=== PATIENT | female | born 1940 | race Caucasian/White ===

== ENCOUNTER → 2023-05-24 | Outpatient (REF) | payer MEDICARE, SELFPAY ==
[2023-05-24 10:22] LABS: Hematocrit 35.9 % (37-47); Hemoglobin 11.7 g/dL (12.0-15.0); Mean Corp Hgb Conc 32.6 g/dL (32-36); Mean Corpuscular Hgb 32.4 pg (27.0-32.0); Mean Corpuscular Volume 99.4 fL (81-99); Mean Platelet Vol. 9.3 fl (6.2-12.0); Platelet Count 311 K/mm3 (150-450); RBC Distribution Width CV 13.2 % (11.6-14.6); RBC Distribution Width SD 48.2 fl (35.1-43.9); Red Blood Count 3.61 M/mm3 (4.2-5.4); White Blood Count 6.9 K/mm3 (4.4-11.0)
[2023-05-24 11:21] LABS: ALB/GLOB Ratio 0.7 RATIO (0.9-2.4); AST(SGOT) 19 U/L (15-37); Alanine Aminotransfer ALT/SGPT 15 U/L (13-56); Albumin, Serum 2.9 g/dL (3.2-5.0); Alkaline Phosphatase 84 U/L (45-117); Anion Gap 5 (5-15); BUN 18 mg/dL (7-18); BUN/Creat Ratio 23.9 RATIO (10-20); Calcium,Total 9.4 mg/dL (8.5-10.1); Chloride 109 mmol/L (98-107); Cholesterol 172 mg/dL (200); Creatinine, Serum 0.75 mg/dL (0.55-1.02); EST Glomerular Filtration Rate 79 mL/min (>60); Est Glom Filt Rate - Afr Amer 95 mL/min (>60); Globulin 3.9 g/dL (2.2-4.2); Glucose 91 mg/dL (74-106); High Density Lipoprotein 53 mg/dL; Potassium 3.2 mmol/L (3.5-5.1); Protein, Total 6.8 g/dL (6.4-8.2); Sodium Level 140 mmol/L (136-145); Thyroid Stim Hormone (TSH) 0.39 uIU/mL (0.358-3.74); Triglycerides 57 mg/dL; Very Low Density Lipoprotein 11 mg/dL (5-40)
== END ==
LOC: OLS.ACW100 05:56
PROVIDERS: Visit Provider Family Medicine
DX: J44.9 Chronic obstructive pulmonary disease, unspecified (principal); F03.90 Unspecified dementia, unspecified severity, without behavioral disturbance, psychotic disturbance, mood disturbance, and anxiety; I48.20 Chronic atrial fibrillation, unspecified; Z79.899 Other long term (current) drug therapy
CPT/HCPCS: 36415; 80053; 80061; 84443; 85027

== ENCOUNTER → 2023-06-01 | Outpatient (REF) | payer MEDICARE, SELFPAY ==
[2023-06-01 09:12] LABS: Anion Gap 4 (5-15); BUN 26 mg/dL (7-18); BUN/Creat Ratio 33.3 RATIO (10-20); Calcium,Total 9.7 mg/dL (8.5-10.1); Chloride 110 mmol/L (98-107); Creatinine, Serum 0.78 mg/dL (0.55-1.02); EST Glomerular Filtration Rate 75 mL/min (>60); Est Glom Filt Rate - Afr Amer 91 mL/min (>60); Glucose 101 mg/dL (74-106); Potassium 4.2 mmol/L (3.5-5.1); Sodium Level 141 mmol/L (136-145)
== END ==
LOC: OLS.ACW100 05:00
PROVIDERS: Visit Provider Family Medicine
DX: J44.9 Chronic obstructive pulmonary disease, unspecified (principal); F03.90 Unspecified dementia, unspecified severity, without behavioral disturbance, psychotic disturbance, mood disturbance, and anxiety; I48.20 Chronic atrial fibrillation, unspecified
CPT/HCPCS: 36415; 80048

== ENCOUNTER → 2023-06-26 | Outpatient (REF) | payer MEDICARE, SELFPAY ==
[2023-06-26 10:40] LABS: Anion Gap 3 (5-15); BUN 23 mg/dL (7-18); BUN/Creat Ratio 29.1 RATIO (10-20); Calcium,Total 9.7 mg/dL (8.5-10.1); Chloride 106 mmol/L (98-107); Creatinine, Serum 0.79 mg/dL (0.55-1.02); EST Glomerular Filtration Rate 74 mL/min (>60); Est Glom Filt Rate - Afr Amer 90 mL/min (>60); Glucose 97 mg/dL (74-106); Potassium 4.2 mmol/L (3.5-5.1); Sodium Level 139 mmol/L (136-145)
== END ==
LOC: OLS.ACW100 04:00
PROVIDERS: Referring Provider Family Medicine; Visit Provider Family Medicine
DX: I48.20 Chronic atrial fibrillation, unspecified (principal); J44.9 Chronic obstructive pulmonary disease, unspecified; F03.90 Unspecified dementia, unspecified severity, without behavioral disturbance, psychotic disturbance, mood disturbance, and anxiety
CPT/HCPCS: 36415; 80048

== ENCOUNTER → 2023-07-03 | Outpatient (REF) | payer MEDICARE, SELFPAY ==
[2023-07-03 09:27] LABS: T4 Total, Thyroxin 8.8 ug/dL (4.8-13.9); Thyroid Stim Hormone (TSH) 1.44 uIU/mL (0.358-3.74)
[2023-07-03 10:01] LABS: T3 Total - Triiodothyronine 0.86 ng/mL (0.6-1.81)
== END ==
LOC: OLS.ACW100 05:00
PROVIDERS: Visit Provider Family Medicine
DX: I48.20 Chronic atrial fibrillation, unspecified (principal)
CPT/HCPCS: 36415; 84436; 84443; 84480

== ENCOUNTER → 2023-07-17 | Outpatient (REF) | payer MEDICARE, SELFPAY ==
[2023-07-17 09:05] LABS: Hematocrit 39.5 % (37-47); Hemoglobin 12.7 g/dL (12.0-15.0); Mean Corp Hgb Conc 32.2 g/dL (32-36); Mean Corpuscular Hgb 32.2 pg (27.0-32.0); Mean Platelet Vol. 9.2 fl (6.2-12.0); Platelet Count 337 K/mm3 (150-450); RBC Distribution Width CV 12.6 % (11.6-14.6); Red Blood Count 3.95 M/mm3 (4.2-5.4); White Blood Count 7.1 K/mm3 (4.4-11.0)
[2023-07-17 09:25] LABS: Anion Gap 5 (5-15); BUN 21 mg/dL (7-18); BUN/Creat Ratio 26.1 RATIO (10-20); Calcium,Total 9.7 mg/dL (8.5-10.1); Chloride 107 mmol/L (98-107); EST Glomerular Filtration Rate 73 mL/min (>60); Est Glom Filt Rate - Afr Amer 88 mL/min (>60); Glucose 95 mg/dL (74-106); Potassium 3.7 mmol/L (3.5-5.1); Sodium Level 139 mmol/L (136-145)
== END ==
LOC: OLS.ACW100 05:00
PROVIDERS: Visit Provider Family Medicine
DX: R60.9 Edema, unspecified (principal); J44.9 Chronic obstructive pulmonary disease, unspecified; I48.20 Chronic atrial fibrillation, unspecified; F03.90 Unspecified dementia, unspecified severity, without behavioral disturbance, psychotic disturbance, mood disturbance, and anxiety
CPT/HCPCS: 36415; 80048; 85027

== ENCOUNTER → 2023-07-21 | Outpatient (REF) | payer MEDICARE, SELFPAY ==
[2023-07-21 09:44] LABS: Vitamin B12 1516 pg/mL (211-911)
== END ==
LOC: OLS.ACW100 05:00
PROVIDERS: Visit Provider Family Medicine
DX: J44.9 Chronic obstructive pulmonary disease, unspecified (principal); F03.90 Unspecified dementia, unspecified severity, without behavioral disturbance, psychotic disturbance, mood disturbance, and anxiety; I48.20 Chronic atrial fibrillation, unspecified
CPT/HCPCS: 36415; 82607

== ENCOUNTER → 2023-08-16 | Outpatient (REF) | payer MEDICARE, SELFPAY ==
[2023-08-16 09:13] LABS: Anion Gap 5 (5-15); BUN 22 mg/dL (7-18); BUN/Creat Ratio 27.2 RATIO (10-20); Calcium,Total 9.9 mg/dL (8.5-10.1); Chloride 108 mmol/L (98-107); Creatinine, Serum 0.81 mg/dL (0.55-1.02); EST Glomerular Filtration Rate 72 mL/min (>60); Est Glom Filt Rate - Afr Amer 87 mL/min (>60); Glucose 100 mg/dL (74-106); Sodium Level 138 mmol/L (136-145)
== END ==
LOC: OLS.ACW100 05:00
PROVIDERS: Visit Provider Family Medicine
DX: J44.9 Chronic obstructive pulmonary disease, unspecified (principal); F03.90 Unspecified dementia, unspecified severity, without behavioral disturbance, psychotic disturbance, mood disturbance, and anxiety; I48.20 Chronic atrial fibrillation, unspecified
CPT/HCPCS: 36415; 80048

== ENCOUNTER → 2023-09-21 | Outpatient (REF) | payer MEDICARE, SELFPAY ==
[2023-09-21 10:45] LABS: T3 Total - Triiodothyronine 1.15 ng/mL (0.6-1.81)
[2023-09-21 11:13] LABS: T4 Total, Thyroxin 12.1 ug/dL (4.8-13.9); Thyroid Stim Hormone (TSH) 0.14 uIU/mL (0.358-3.74)
== END ==
LOC: OLS.ACW100 07:10
PROVIDERS: Visit Provider Family Medicine
DX: I48.20 Chronic atrial fibrillation, unspecified (principal)
CPT/HCPCS: 36415; 84436; 84443; 84480

== ENCOUNTER → 2023-11-02 | Outpatient (REF) | payer MEDICARE, SELFPAY ==
[2023-11-02 08:50] LABS: Hematocrit 38.8 % (37-47); Hemoglobin 13.2 g/dL (12.0-15.0); Mean Corpuscular Hgb 32.1 pg (27.0-32.0); Mean Corpuscular Volume 94.4 fL (81-99); Mean Platelet Vol. 9.5 fl (6.2-12.0); Platelet Count 372 K/mm3 (150-450); RBC Distribution Width CV 11.9 % (11.6-14.6); RBC Distribution Width SD 41.3 fl (35.1-43.9); Red Blood Count 4.11 M/mm3 (4.2-5.4); White Blood Count 10.6 K/mm3 (4.4-11.0)
[2023-11-02 08:52] LABS: Erythrocyte Sedimentation Rate 44 mm/hr (0-30)
[2023-11-02 09:16] LABS: Procalcitonin < 0.04 ng/mL (0.00-0.09)
[2023-11-02 10:22] LABS: Anion Gap 8 (5-15); BUN 20 mg/dL (7-18); BUN/Creat Ratio 28.4 RATIO (10-20); Chloride 107 mmol/L (98-107); EST Glomerular Filtration Rate 85 mL/min (>60); Est Glom Filt Rate - Afr Amer 102 mL/min (>60); Glucose 97 mg/dL (74-106); Potassium 4.1 mmol/L (3.5-5.1); Sodium Level 138 mmol/L (136-145)
== END ==
LOC: OLS.ACW100 05:00
PROVIDERS: Visit Provider Family Medicine
DX: J44.9 Chronic obstructive pulmonary disease, unspecified (principal); F03.90 Unspecified dementia, unspecified severity, without behavioral disturbance, psychotic disturbance, mood disturbance, and anxiety; R41.841 Cognitive communication deficit
CPT/HCPCS: 36415; 80048; 84145; 84550; 85027; 85652

== ENCOUNTER → 2023-11-06 | Outpatient (REF) | payer MEDICARE, SELFPAY ==
[2023-11-06 08:22] LABS: T4 Total, Thyroxin 9.1 ug/dL (4.8-13.9); Thyroid Stim Hormone (TSH) 0.32 uIU/mL (0.358-3.74)
[2023-11-06 08:35] LABS: T3 Total - Triiodothyronine 0.59 ng/mL (0.6-1.81)
== END ==
LOC: OLS.ACW100 04:00
PROVIDERS: Referring Provider Family Medicine; Visit Provider Family Medicine
DX: I48.20 Chronic atrial fibrillation, unspecified (principal)
CPT/HCPCS: 36415; 84436; 84443; 84480

== ENCOUNTER → 2023-11-17 | Outpatient (REF) | payer MEDICARE, SELFPAY ==
[2023-11-17 09:17] LABS: Anion Gap 5 (5-15); BUN 20 mg/dL (7-18); BUN/Creat Ratio 20.4 RATIO (10-20); Calcium,Total 10.1 mg/dL (8.5-10.1); Chloride 108 mmol/L (98-107); Creatinine, Serum 0.98 mg/dL (0.55-1.02); EST Glomerular Filtration Rate 58 mL/min (>60); Est Glom Filt Rate - Afr Amer 70 mL/min (>60); Glucose 100 mg/dL (74-106); Potassium 4.2 mmol/L (3.5-5.1); Sodium Level 137 mmol/L (136-145)
== END ==
LOC: OLS.ACW100 05:00
PROVIDERS: Visit Provider Family Medicine
DX: J44.9 Chronic obstructive pulmonary disease, unspecified (principal); F03.90 Unspecified dementia, unspecified severity, without behavioral disturbance, psychotic disturbance, mood disturbance, and anxiety
CPT/HCPCS: 36415; 80048

== ENCOUNTER → 2023-12-18 05:00 | Outpatient (REF) | payer MEDICARE, SELFPAY ==
[2023-12-18 09:51] LABS: Thyroid Stim Hormone (TSH) 0.86 uIU/mL (0.358-3.74)
== END ==
LOC: OLS.ACW100 05:00
PROVIDERS: Visit Provider Family Medicine
DX: J44.9 Chronic obstructive pulmonary disease, unspecified (principal); F03.90 Unspecified dementia, unspecified severity, without behavioral disturbance, psychotic disturbance, mood disturbance, and anxiety; R41.841 Cognitive communication deficit
CPT/HCPCS: 36415; 84443

== ENCOUNTER → 2024-01-05 | Outpatient (REF) | payer MEDICARE, SELFPAY ==
[2024-01-05 08:58] LABS: Potassium 3.9 mmol/L (3.5-5.1)
== END ==
LOC: OLS.ACW100 05:00
PROVIDERS: Visit Provider Family Medicine
DX: J44.9 Chronic obstructive pulmonary disease, unspecified (principal); F03.90 Unspecified dementia, unspecified severity, without behavioral disturbance, psychotic disturbance, mood disturbance, and anxiety; R41.841 Cognitive communication deficit
CPT/HCPCS: 36415; 84132

== ENCOUNTER → 2024-02-06 05:00 | Outpatient (REF) | payer MEDICARE, SELFPAY ==
[2024-02-06 09:47] LABS: T3 Total - Triiodothyronine 0.84 ng/mL (0.6-1.81)
[2024-02-06 10:29] LABS: T4 Total, Thyroxin 10.9 ug/dL (4.8-13.9); Thyroid Stim Hormone (TSH) 0.25 uIU/mL (0.358-3.74)
== END ==
LOC: OLS.ACW100 05:00
PROVIDERS: Visit Provider Family Medicine
DX: J44.9 Chronic obstructive pulmonary disease, unspecified (principal); F03.90 Unspecified dementia, unspecified severity, without behavioral disturbance, psychotic disturbance, mood disturbance, and anxiety; I48.20 Chronic atrial fibrillation, unspecified
CPT/HCPCS: 36415; 84436; 84443; 84480

== ENCOUNTER → 2024-07-08 | Outpatient (REF) | payer MEDICARE, MEDICAID, SELFPAY ==
[2024-07-08 08:53] LABS: T4 Total, Thyroxin 10.2 ug/dL (4.8-13.9); Thyroid Stim Hormone (TSH) 0.426 uIU/mL (0.358-3.740)
[2024-07-08 09:01] LABS: T3 Total - Triiodothyronine 1.13 ng/mL (0.6-1.81)
== END ==
LOC: OLS.ACW100 05:00
PROVIDERS: Visit Provider Family Medicine
DX: Z79.899 Other long term (current) drug therapy (principal)
CPT/HCPCS: 36415; 84436; 84443; 84480

== ENCOUNTER → 2024-07-25 | Outpatient (REF) | payer MEDICARE, MEDICAID, SELFPAY ==
[2024-07-25 08:52] LABS: Hematocrit 37.6 % (37-47); Hemoglobin 12.5 g/dL (12.0-15.0); Mean Corp Hgb Conc 33.2 g/dL (32-36); Mean Corpuscular Hgb 32.6 pg (27.0-32.0); Mean Corpuscular Volume 98.2 fL (81-99); Mean Platelet Vol. 9.5 fl (6.2-12.0); Platelet Count 231 K/mm3 (150-450); RBC Distribution Width CV 11.8 % (11.6-14.6); RBC Distribution Width SD 42.4 fl (35.1-43.9); Red Blood Count 3.83 M/mm3 (4.2-5.4); White Blood Count 6.5 K/mm3 (4.4-11.0)
[2024-07-25 09:31] LABS: ALB/GLOB Ratio 0.8 RATIO (0.9-2.4); AST(SGOT) 55 U/L (15-37); Alanine Aminotransfer ALT/SGPT 80 U/L (13-56); Albumin, Serum 2.9 g/dL (3.2-5.0); Alkaline Phosphatase 80 U/L (45-117); Anion Gap 3 (5-15); BUN 21 mg/dL (7-18); BUN/Creat Ratio 23.5 RATIO (10-20); Chloride 111 mmol/L (98-107); Cholesterol 157 mg/dL (200); Creatinine, Serum 0.89 mg/dL (0.55-1.02); EST Glomerular Filtration Rate 64 mL/min (>60); Est Glom Filt Rate - Afr Amer 78 mL/min (>60); Globulin 3.5 g/dL (2.2-4.2); Glucose 96 mg/dL (74-106); High Density Lipoprotein 53 mg/dL; Potassium 4.2 mmol/L (3.5-5.1); Protein, Total 6.4 g/dL (6.4-8.2); Sodium Level 139 mmol/L (136-145); Thyroid Stim Hormone (TSH) 0.648 uIU/mL (0.358-3.740); Triglycerides 56 mg/dL; Very Low Density Lipoprotein 11 mg/dL (5-40)
== END ==
LOC: OLS.ACW100 05:00
PROVIDERS: Visit Provider Family Medicine
DX: F03.90 Unspecified dementia, unspecified severity, without behavioral disturbance, psychotic disturbance, mood disturbance, and anxiety (principal); S32.011D Stable burst fracture of first lumbar vertebra, subsequent encounter for fracture with routine healing; Z79.899 Other long term (current) drug therapy
CPT/HCPCS: 36415; 80053; 80061; 84443; 85027

== ENCOUNTER → 2024-10-08 04:00 | Outpatient (REF) | payer MEDICARE, MEDICAID, SELFPAY ==
[2024-10-08 08:58] LABS: T4 Total, Thyroxin 11.8 ug/dL (4.8-13.9)
[2024-10-08 09:00] LABS: T3 Total - Triiodothyronine 0.75 ng/mL (0.6-1.81)
== END ==
LOC: OLS.ACW100 04:00
PROVIDERS: Referring Provider Family Medicine; Visit Provider Family Medicine
DX: E03.9 Hypothyroidism, unspecified (principal)
CPT/HCPCS: 36415; 84436; 84443; 84480

== ENCOUNTER → 2024-11-26 | Outpatient (REF) | payer MEDICARE, MEDICAID, SELFPAY ==
[2024-11-26 09:22] LABS: AST(SGOT) 35 U/L (<=31); Alanine Aminotransfer ALT/SGPT 30 U/L (<=34); Albumin, Serum 3.2 g/dL (3.4-4.8); Alkaline Phosphatase 72 U/L (35-104); Anion Gap 11 (5-15); BUN 17 mg/dL (4-19); BUN/Creat Ratio 17.8 RATIO (10-20); Bilirubin, Direct 0.28 mg/dL (0.00-0.30); Calcium,Total 9.2 mg/dL (7.6-11.0); Carbon Dioxide 22.3 mmol/L (21.0-32.0); Chloride 106 mmol/L (98-108); Creatinine, Serum 0.96 mg/dL (0.70-1.20); EST Glomerular Filtration Rate 59 (>60); Globulin 2.8 g/dL (2.2-4.2); Glucose 97 mg/dL (70-99); Magnesium 2.2 mg/dL (1.5-2.2); Potassium 3.5 mmol/L (3.3-5.1); Sodium Level 139 mmol/L (133-145); Total Bilirubin 0.62 mg/dL (0.00-1.30)
== END ==
LOC: OLS.ACW100 04:00
PROVIDERS: Referring Provider Family Medicine; Visit Provider Family Medicine
DX: I50.23 Acute on chronic systolic (congestive) heart failure (principal); I48.20 Chronic atrial fibrillation, unspecified; R45.1 Restlessness and agitation; R53.1 Weakness
CPT/HCPCS: 36415; 80048; 80076; 83735; 84443

== ENCOUNTER → 2024-12-04 | Outpatient (REF) | payer MEDICARE, MEDICAID, SELFPAY ==
[2024-12-04 08:01] LABS: Hemoglobin 12.5 g/dL (12.0-15.0); Mean Corp Hgb Conc 32.9 g/dL (32-36); Mean Corpuscular Hgb 30.6 pg (27.0-32.0); Mean Corpuscular Volume 92.9 fL (81-99); Mean Platelet Vol. 9.2 fl (6.2-12.0); Platelet Count 266 K/mm3 (150-450); RBC Distribution Width SD 47.5 fl (35.1-43.9); Red Blood Count 4.09 M/mm3 (4.2-5.4); White Blood Count 6.3 K/mm3 (4.4-11.0)
[2024-12-04 08:22] LABS: ALB/GLOB Ratio 1.2 RATIO (0.9-2.4); AST(SGOT) 29 U/L (<=31); Alanine Aminotransfer ALT/SGPT 20 U/L (<=34); Albumin, Serum 3.6 g/dL (3.4-4.8); Alkaline Phosphatase 74 U/L (35-104); Anion Gap 10 (5-15); BUN 19 mg/dL (4-19); BUN/Creat Ratio 17.7 RATIO (10-20); Calcium,Total 9.3 mg/dL (7.6-11.0); Carbon Dioxide 23.9 mmol/L (21.0-32.0); Chloride 104 mmol/L (98-108); Creatinine, Serum 1.05 mg/dL (0.70-1.20); EST Glomerular Filtration Rate 53 (>60); Glucose 112 mg/dL (70-99); Potassium 3.4 mmol/L (3.3-5.1); Protein, Total 6.6 g/dL (5.9-8.4); Sodium Level 138 mmol/L (133-145); Total Bilirubin 0.71 mg/dL (0.00-1.30)
== END ==
LOC: OLS.ACW100 05:00
PROVIDERS: Visit Provider Family Medicine
DX: I50.23 Acute on chronic systolic (congestive) heart failure (principal); I48.20 Chronic atrial fibrillation, unspecified; R45.1 Restlessness and agitation; R53.1 Weakness
CPT/HCPCS: 36415; 80053; 85027

== ENCOUNTER → 2024-12-16 | Outpatient (REF) | payer MEDICARE, MEDICAID, SELFPAY ==
[2024-12-16 08:42] LABS: Mucous, Urine 0 SEEN /hpf (<or=2+)
[2024-12-16 08:48] LABS: Color, Urine Yellow (Yellow); Glucose, Dipstick Normal (Normal); Ketone-Dipstick Negative (Negative); Leukocyte Esterase-Dipstick 500 /ul (Negative); Nitrite-Dipstick Negative (Negative); Occult Blood-Urine 50 /ul (Negative); Protein-Dipstick 30 mg/dl (Negative); Urine Bilirubin Dipstick Negative (Negative); Urine Clarity Cloudy (Clear); Urine Urobilinogen Normal (Normal)
[2024-12-16 08:59] LABS: Bacteria 4+ /hpf (None Seen); Red Blood Cells-Urine 0-5 SEEN /hpf (0-5); Squamous Epithelial Cells - UA 0-5 SEEN /hpf (5-10); White Blood Cells >100 SEEN /hpf (0-5)
[2024-12-16 09:00] LABS: Hematocrit 40.1 % (37-47); Hemoglobin 12.8 g/dL (12.0-15.0); Mean Corp Hgb Conc 31.9 g/dL (32-36); Mean Corpuscular Hgb 29.9 pg (27.0-32.0); Mean Corpuscular Volume 93.7 fL (81-99); Mean Platelet Vol. 9.5 fl (6.2-12.0); Platelet Count 258 K/mm3 (150-450); RBC Distribution Width CV 14.6 % (11.6-14.6); RBC Distribution Width SD 49.2 fl (35.1-43.9); Red Blood Count 4.28 M/mm3 (4.2-5.4); White Blood Count 7.1 K/mm3 (4.4-11.0)
[2024-12-16 09:48] LABS: ALB/GLOB Ratio 1.2 RATIO (0.9-2.4); AST(SGOT) 29 U/L (<=31); Alanine Aminotransfer ALT/SGPT 15 U/L (<=34); Albumin, Serum 3.6 g/dL (3.4-4.8); Alkaline Phosphatase 72 U/L (35-104); Anion Gap 11 (5-15); BUN 16 mg/dL (4-19); BUN/Creat Ratio 17.5 RATIO (10-20); Calcium,Total 9.3 mg/dL (7.6-11.0); Carbon Dioxide 24.7 mmol/L (21.0-32.0); Chloride 102 mmol/L (98-108); EST Glomerular Filtration Rate 64 (>60); Globulin 3.1 g/dL (2.2-4.2); Glucose 110 mg/dL (70-99); Magnesium 2.2 mg/dL (1.5-2.2); Potassium 3.4 mmol/L (3.3-5.1); Pro- Brain NATRIURETIC PEPTIDE 13099 pg/mL (<=1800); Protein, Total 6.6 g/dL (5.9-8.4); Sodium Level 138 mmol/L (133-145); Total Bilirubin 0.96 mg/dL (0.00-1.30)
== END ==
LOC: OLS.ACW100 05:00
PROVIDERS: Visit Provider Family Medicine
DX: R39.9 Unspecified symptoms and signs involving the genitourinary system (principal); I50.23 Acute on chronic systolic (congestive) heart failure; I48.20 Chronic atrial fibrillation, unspecified; R45.1 Restlessness and agitation; R53.1 Weakness
CPT/HCPCS: 36415; 80053; 81001; 83735; 83880; 85027; 87086; 87088; 87186

== ENCOUNTER → 2024-12-23 | Outpatient (REF) | payer MEDICARE, MEDICAID, SELFPAY ==
[2024-12-23 10:07] LABS: Anion Gap 12 (5-15); BUN 21 mg/dL (4-19); BUN/Creat Ratio 19.6 RATIO (10-20); Calcium,Total 9.8 mg/dL (7.6-11.0); Carbon Dioxide 21.1 mmol/L (21.0-32.0); Chloride 102 mmol/L (98-108); Creatinine, Serum 1.06 mg/dL (0.70-1.20); EST Glomerular Filtration Rate 52 (>60); Glucose 111 mg/dL (70-99); Potassium 4.1 mmol/L (3.3-5.1); Pro- Brain NATRIURETIC PEPTIDE 11669 pg/mL (<=1800); Sodium Level 135 mmol/L (133-145)
== END ==
LOC: OLS.ACW100 04:00
PROVIDERS: Referring Provider Family Medicine; Visit Provider Family Medicine
DX: I50.23 Acute on chronic systolic (congestive) heart failure (principal); I48.20 Chronic atrial fibrillation, unspecified
CPT/HCPCS: 36415; 80048; 83880

== ENCOUNTER → 2024-12-30 | Outpatient (REF) | payer MEDICARE, MEDICAID, SELFPAY ==
[2024-12-30 10:17] LABS: Anion Gap 13 (5-15); BUN 23 mg/dL (4-19); BUN/Creat Ratio 22.1 RATIO (10-20); Calcium,Total 9.6 mg/dL (7.6-11.0); Carbon Dioxide 19.3 mmol/L (21.0-32.0); Chloride 102 mmol/L (98-108); Creatinine, Serum 1.02 mg/dL (0.70-1.20); EST Glomerular Filtration Rate 55 (>60); Glucose 101 mg/dL (70-99); Sodium Level 135 mmol/L (133-145)
== END ==
LOC: OLS.ACW100 05:00
PROVIDERS: Visit Provider Family Medicine
DX: I50.23 Acute on chronic systolic (congestive) heart failure (principal); I48.20 Chronic atrial fibrillation, unspecified
CPT/HCPCS: 36415; 80048

== ENCOUNTER → 2025-01-14 04:00 | Outpatient (REF) | payer MEDICARE, MEDICAID, SELFPAY ==
[2025-01-14 09:16] LABS: Anion Gap 9 (5-15); BUN 17 mg/dL (4-19); BUN/Creat Ratio 17.9 RATIO (10-20); Calcium,Total 9.7 mg/dL (7.6-11.0); Carbon Dioxide 24.2 mmol/L (21.0-32.0); Chloride 103 mmol/L (98-108); Creatinine, Serum 0.95 mg/dL (0.70-1.20); EST Glomerular Filtration Rate 60 (>60); Glucose 94 mg/dL (70-99); Magnesium 2.3 mg/dL (1.5-2.2); Potassium 4.3 mmol/L (3.3-5.1); Sodium Level 137 mmol/L (133-145)
== END ==
LOC: OLS.ACW100 04:00
PROVIDERS: Referring Provider Family Medicine; Visit Provider Family Medicine
DX: I50.23 Acute on chronic systolic (congestive) heart failure (principal); I48.20 Chronic atrial fibrillation, unspecified; R45.1 Restlessness and agitation; R27.9 Unspecified lack of coordination; R53.1 Weakness
CPT/HCPCS: 36415; 80048; 83735

== ENCOUNTER → 2025-01-15 05:00 | Outpatient (REF) | payer MEDICARE, MEDICAID, SELFPAY ==
[2025-01-15 10:39] LABS: Anion Gap 12 (5-15); BUN 17 mg/dL (4-19); BUN/Creat Ratio 17.1 RATIO (10-20); Calcium,Total 9.7 mg/dL (7.6-11.0); Carbon Dioxide 21.1 mmol/L (21.0-32.0); Chloride 101 mmol/L (98-108); Creatinine, Serum 1.01 mg/dL (0.70-1.20); EST Glomerular Filtration Rate 56 (>60); Glucose 94 mg/dL (70-99); Magnesium 2.1 mg/dL (1.5-2.2); Potassium 4.2 mmol/L (3.3-5.1); Sodium Level 134 mmol/L (133-145)
== END ==
LOC: OLS.ACW100 05:00
PROVIDERS: Visit Provider Family Medicine
DX: I50.23 Acute on chronic systolic (congestive) heart failure (principal); K85.90 Acute pancreatitis without necrosis or infection, unspecified; I48.20 Chronic atrial fibrillation, unspecified; R45.1 Restlessness and agitation
CPT/HCPCS: 36415; 80048; 83735

== ENCOUNTER → 2025-01-29 | Outpatient (REF) | payer MEDICARE, MEDICAID, SELFPAY ==
--- OUTSIDE RECORDS SUMMARY | 2025-01-29 04:01 | XMS RPT_ITS | CCD ---
Author Organization [facility] Care Team Providers Care Reliability Technologist Name Role Phone System, [facility] Primary Care Provider Kathi Juarez MD Primary Care Provider Kathi Juarez MD Primary Care Provider ROYER ZAMBRANO Referring Unavailable JOANA WILSON Attending Unavailable Kathi Melissa Attending Provider UnavailKathi Ramirez Referring [facility] Attending Provider U DESHAWN Lafleur Admitting Unavailable KATHI JUAREZ Primary Care Unavailable TEVIN WHALEY Consulting Unavailable DESHAWN SHANNON Attending Unavailable KATHI JUAREZ Primary Care Unavailable MARCOS ARAUJO Attending Unavailable KATHI JUAREZ Primary Care Unavailable TEVIN CONNER Attending Unavailable MARCOS ARAUJO Referring Unavailable AG TRENT Attending Unavailable KATHI JUAREZ Primary Care Unavailable TORIBIO SHEPHERD Admitting Unavailable KATHI JUAREZ Primary Care Unavailable MAY, HARIKRISHNA Admitting Unavailable MAY HARIKRISCAPRICEA Attending Unavailable KATHI JUAREZ Primary Care Unavailable PHILL FORTE Attending Unavailable PHILL FORTE Admitting Unavailable Kathi Melissa Attending Unavailable Kathi Melissa Attending Unavailable Kathi Melissa Referring Unavailable Kathi Melissa Attending Unavailable Kathi Melissa Attending Unavailable Kathi Melissa Attending Unavailable Ann KULKARNI, Kathi Attending Unavailable Kathi Melissa Referring Unavailable Ann KULKARNI, Kathi Attending Unavailable Kathi Melissa Attending Unavailable Mitra Forest[facility] Attending Unav ailable Kathi Melissa Attending Unavailable Kathi Melissa Attending Unavailable Kathi Melissa Attending Unavailable Kathi Melissa Referring Unavailable Kathi Melissa Attending Unavailable Kathi Melissa Attending Unavailable Kathi Melissa Attending Unavailable Allergies Allergy Classification Reported Allergen(s) Allergy Type Date of Onset Reaction(s) Facility (12 sources) gabapentin Drug Allergy 04-10-2024 Intolerance [facility] (12 sources) Propoxyphene Drug Allergy 04-10-2024 Intolerance [facility] (5 sources) Doxycycline Drug Allergy 12-02-2013 [facility] Medications Current Medications Medication Drug Class(es) Dates Sig (Normalized) Sig (Original) biotin 5 mg oral capsule (11 sources) take 1 capsule by mouth once daily biotin 5 MG capsule Take 5 mg by mouth daily. Active Calcium Carbonate / vitamin D3 (1 source) calcium carbonat e/vitamin D3 (OYSTER SHELL + D3 ORAL) Take by mouth. Active carboxymethylcellulose sodium 5 mg/ml ophthalmic solution (11 sources) take 2 drop(s) into the eye(s) in the morning carboxymethylcellulose (Refresh Plus) 0.5 % ophthalmic solution Administer 2 drops into both eyes in the morning and 2 drops in the evening. Active docusate sodium 50 mg / sennosides, halfway 8.6 mg oral tablet (18 sources) Start: 01-08-20 End: 01-19-20 take 2 tablets by mouth twice daily as needed for constipation senna-docusate sodium (Senokot-S) 8.6-50 MG tablet Take 2 tablets by mouth 2 times daily as needed for constipation for up to 10 days. 40 tablet 01/08/2025 01/18/2025 Active Start: 01-06-2025 End: 01-07-2025 take 2 tablets by mouth once daily 2 tablet, Oral, Kusum ly, First dose on 01/06/25 at 1100 Start: 04-10-2024 End: 11-01-2024 take 1 tablet by mouth once daily 1 tablet, Oral, Hayley y, First dose on Crissy 10/17/24 at 1410 60 actuat fluticasone propionate 0.5 mg/actuat / salmeterol 0.05 mg/actuat dry powder inhaler (12 sources) Corticosteroid, beta2-Adrenergic Agonist take 1 puff(s) by inhalation in the morning Fluticasone-Salmeterol (Advair Diskus) 500-50 MCG/ACT aerosol powder Inhale 1 puff in the morning and 1 puff in the evening. Active fluticasone-salm eterol (ADVAIR) 500-50 mcg/dose dsdv Inhale 1 Puff as instructed. Active furosemide 40 mg oral tablet (20 sources) Loop Diuretic Start: 10-31-2024 End: 12-02-2024 take 1 tablet by mouth once daily furosemide (Lasix) 40 MG tablet Take 1 tablet (40 mg) by mouth daily. 30 tablet 11/02/2024 Active Start: 10-30-2024 End: 10-31-2024 40 mg, IntraVENous, 2 times daily, First dose on Mon10/30/24 at 1215, For 4 doses Start: 10-29-2024 40 mg, IntraVE Nous, Once, On Mon10/29/24 at 1415, For 1 dose Start: 10-29-2024 20 mg, IntraVE Nous, Once, On Mon10/29/24 at 1105, For 1 dose Start: 10-17-2024 End: 11-01-2024 take 20 mg by mouth once daily 20 mg, Oral, Daily, Fir st dose on Mon10/17/24 at 1410 hydrocortisone 20 mg/ml topical lotion (2 sources) Corticosteroid Hydrocortisone 2 % lotion Apply topically. Active ibuprofen 200 mg oral tablet (1 source) Nonsteroidal Anti-inflammatory Drug take 1 tablet by mouth every six hours as needed ibuprofen (ADVIL) 200 mg tablet Take 200 mg by mouth every 6 hours as needed. Active lanolin alcohol/mo/w.pet/ceres (EUCERIN TOPICAL) (1 source) lanolin alcohol/mo/w.pet/cere s (EUCERIN TOPICAL) Apply to affected area. Active multivit-min/iron/foli c acid/K (MULTI-DAY PLUS MINERALS ORAL) (1 source) multivit-min/iro n/fol ic acid/K (MULTI-DAY PLUS MINERALS ORAL) Take by mouth. Active mupirocin 0.02 mg/mg topical ointment (2 sources) RNA Synthetase Inhibitor Antibacterial mupirocin (Bactroban ) 2 % ointment Apply topically three times daily. Active oxyCODONE hydrochloride 5 mg oral tablet (4 sources) Opioid Agonist Start: End: take 1 tablet by mouth every four hours as needed for pain oxyCODONE (Roxicodone) 5 MG immediate release tablet Indications: Closed fracture of first lumbar vertebra, unspecified fracture morphology, initial encounter ([facility]) Take 1 tablet (5 mg) by mouth every 4 hours as needed for moderate pain (4-6) for up to 5 days. 04/12/2024 04/17/2024 Active Start: 04-10-2024 End: 04-12-2024 take 1 tablet by mouth every four hours as needed for pain oxyCODONE (Roxicodone) immediate release tablet 5 mg potassium chloride 1.33 meq/ml oral solution (13 sources) Start: 11-01-2024 End: 11-08-2024 take 15 mL by mouth once daily Potassium Chloride 20 MEQ/15ML (10%) solution Take 15 mL (20 mEq) by mouth daily for 7 days. 105 mL 11/01/2024 11/08/2024 Active Start: 11-01-2024 End: 11-01-2024 take 1 [oz_av] by mouth once 40 mEq, Oral, Once, On Fr i 11/01/24 at 1115, For 1 dose, Dissolve each packet in 4 ounces of water = 5 mEq per 1 oz fluid. Start: 10-30-2024 End: 11-01-2024 potassium chloride CR (Klor- Con M10) ER tablet 40 mEq potassium chlori de CR (Klor-Con M10) 10 MEQ ER tablet Take 10 mEq by mouth daily. Do not crush or chew. Active End: 10-19-2024 potassium chloride CR (Klor- Con M20) 20 MEQ ER tablet Take 60 mEq by mouth daily. Do not crush or chew. 10/19/2024 Discontinued (Stop taking at discharge) potassium chlori de (KLOR-CON) 20 mEq packet Take by mouth once daily. Active sennosides/docusate sodium ( SENNA PLUS ORAL) (1 source) sennosides/docus ate sodium (SENNA PLUS ORAL) Take by mouth. Active Completed/Discontinued Medications Medication Drug Class(es) Dates Sig (Normalized) Sig (Original) Acetaminophen (13 sources) Start: 01-06-2025 End: 01-08-2025 take 1 tablet by mouth every six hours as needed for pain and fever acetaminophen (Tylenol) tablet 650 mg Start: 11-01-2024 End: 11-11-2024 take 2 tablets by mouth every six hours as needed for pain and fever acetaminophen (Tylenol) 325 MG tablet Take 2 tablets (650 mg) by mouth every 6 hours as needed for mild pain (1-3) or fever (For temp greater than 100.4 F (38 C)) for up to 10 days. 11/01/2024 11/11/2024 Active Start: 10-30-2024 End: 11-01-2024 take 1 tablet by mouth every six hours as needed for pain and fever acetaminophen (Tylenol) tablet 650 mg Start: 10-29-2024 End: 10-29-2024 650 mg, Oral, Once, On Mon at 2015, For 1 dose, Maximum dose of acetaminophen is 4000 mg from all sources in 24 hours. Start: 10-17-2024 End: 10-19-2024 take 1 tablet by mouth every six hours as needed for pain and fever acetaminophen (Tylenol) tablet 650 mg Start: 04-10-2024 End: 04-12-2024 take 1 tablet by mouth every six hours as needed for pain and fever acetaminophen (Tylenol) tablet 650 mg acetaminophen (T YLENOL) 325 mg cap Take by mouth. Active [id number] 200 actuat albuterol 0.09 mg/actuat metered dose inhaler (2 sources) beta2-Adrenergic Agonist Start: 04-10-2024 End: 04-12-2024 take 2 puff(s) by inhalation every six hours as needed for wheezing 2 puff, Inhalation, Every 6 hours PRN, wheezing, Starting on Mon04/10/24 at 2108 apixaban 5 mg oral tablet (16 sources) Factor Xa Inhibitor Start: 01-06-2025 End: 01-08-2025 take 5 mg by mouth twice daily 5 mg, Oral, 2 times daily, First dose (after last modification) on Mon01/06/25 at 2100, Anticoagulant Start: 10-30-2024 End: 11-01-2024 take 2.5 mg by mouth twice daily 2.5 mg, Oral, 2 times daily, First dose on Mon10/30/24 at 0900, Anticoagulant Start: 10-17-2024 End: 10-19-2024 take 2.5 mg by mouth twice daily 2.5 mg, Oral, 2 times daily, First dose on Mon10/17/24 at 1445, Anticoagulant aspirin 81 mg chewable tablet (2 sources) Platelet Aggregation Inhibitor, Nonsteroidal Anti-inflammatory Drug Start: 10-17-2024 End: 10-17-2024 take 324 mg by mouth once 324 mg, Oral, Once, On Mon10/17/24 at 1220, For 1 dose busPIRone hydrochloride 10 mg oral tablet (20 sources) Start: 01-07-2025 End: 01-08-2025 take 5 mg by mouth three times daily 5 mg, Oral, 3 times daily, First dose on Mon01/07/25 at 1630 Start: 11-01-2024 End: 11-01-2024 take 1 tablet by mouth once daily, then take 2 tablets by mouth once daily busPIRone (Buspar) 5 MG tablet 5 mg oral nightly for one week then increase to 10 mg oral nightly 30 tablet 11/01/2024 Active Start: 11-01-2024 End: 12-01-2024 take 1 tablet by mouth once daily in the morning busPIRone (Buspar) 10 MG tablet Take 1 tablet (10 mg) by mouth every morning. 30 tablet 11/01/2024 11/19/2024 Discontinued (Duplicate order) Start: 04-10-2024 End: 11-01-2024 take 5 mg by mouth twice daily 5 mg, Oral, 2 times kusum ly, First dose on Mon10/30/24 at 0900 calcium carbonate 500 mg rayshawn wable tablet (16 sources) Start: 10-30-2024 End: 11-01-2024 Start: 10-17-2024 End: 10-19-2024 calcium carbonat e (TUMS ORAL) Take by mouth. Active cefTRIAXone (Rocephin) 1,000 mg in sodium chloride 0.9 % 50 mL IVPB Mini-Bag Plus (6 sources) Start: 01-07-2025 End: 01-08-2025 1,000 mg, IntraVENous, at 10 0 mL/hr, Administer over 30 Minutes, Every 24 hours, First dose on Mon01/07/25 at 0000, Mini-Bag Plus bag, Suspected Indication (Select all that apply): Urinary Tract Infection Start: 01-06-2025 End: 01-06-2025 1,000 mg, IntraVENous, at 10 0 mL/hr, Administer over 30 Minutes, Once, On Mon01/06/25 at 0310, For 1 dose, Mini-Bag Plus bag, Suspected Indication (Select all that apply): Urinary Tract Infection Start: 10-17-2024 End: 10-19-2024 1,000 mg, IntraVENous, at 10 0 mL/hr, Administer over 30 Minutes, Every 24 hours, First dose on Mon10/17/24 at 1500, Mini-Bag Plus bag, Suspected Indication (Select all that apply): Urinary Tract Infection 24 hr dilTIAZem hydrochloride 120 mg extended release oral tablet (2 sources) Calcium Channel Neto End: 04-12-2024 take 1 tablet by mouth every twenty-four hours in the morning dilTIAZem HCl ER 120 MG tablet sustained-release 24 hour Take 120 mg by mouth in the morning. 04/12/2024 Discontinued (Stop taking at discharge) donepezil hydrochloride 10 mg oral tablet (14 sources) Start: 01-06-2025 End: 01-08-2025 take 10 mg by mouth once daily 10 mg, Oral, Nightly, First dose on Mon01/06/25 at 2100 Start: 10-30-2024 End: 11-01-2024 take 10 mg by mouth once daily 10 mg, Oral, Nightly, F irst dose on Mon10/30/24 at 2100 0.6 ml enoxaparin sodium 100 mg/ml prefilled syringe (2 sources) Low Molecular Weight Heparin Start: 10-17-2024 End: 10-17-2024 60 mg (rounded from 55.8 mg = 1 mg/kg 55.8 kg), SubCUTAneous, Once, On Mon10/17/24 at 1220, For 1 dose, Indication of Use: ACS escitalopram 10 mg oral tablet (20 sources) Serotonin Reuptake Inhibitor Start: 01-06-2025 End: 01-08-2025 take 15 mg by mouth once daily 15 mg, Oral, Daily, First dose on Mon01/06/25 at 1045 Start: 10-30-2024 End: 11-01-2024 take 15 mg by mouth once daily 15 mg, Oral, Daily, Fir st dose on Mon10/30/24 at 0900 Start: 10-17-2024 End: 10-19-2024 take 15 mg by mouth once daily 15 mg, Oral, Daily, Fir st dose on Mon10/17/24 at 1410 Start: 04-10-2024 End: 04-12-2024 take 15 mg by mouth once daily 15 mg, Oral, Daily, Fir st dose on Mon04/10/24 at 2100 escitalopram (Le xapro) 10 MG tablet Take 15 mg by mouth daily. Active take 1 tablet by once daily escitalopram oxalate (LEXAPRO) 20 mg tablet Take 20 mg by mouth once daily. Active 60 actuat formoterol fumarate 0.005 mg/actuat / mometasone furoate 0.1 mg/actuat metered dose inhaler (2 sources) Corticosteroid, beta2-Adrenergic Agonist Start: 10-17-2024 End: 10-19-2024 take 2 puff(s) by mouth twice daily 2 puff, Inhalation, 2 times daily, First dose on Mon10/17/24 at 2000, Rinse mouth with water after use to reduce aftertaste and incidence of candidiasis. Do not swallow. gadobutrol (Gadavist) injection 7.6 mL (2 sources) Start: 11-22-2023 End: 11-22-2023 gadobutrol (Gadavist) injection 7.6 mL glycerin 3 mg/ml / propylene glycol 10 mg/ml ophthalmic solution (2 sources) Non-Standardized Chemical Allergen Start: 10-17-2024 End: 10-19-2024 hydrALAZINE hydrochloride 25 mg oral tablet (4 sources) Arteriolar Vasodilator Start: 10-30-2024 End: 11-01-2024 take 25 mg by mouth four times daily as needed 25 mg, Oral, 4 times daily PRN, SBP>160 mmHg, Starting on Mon10/30/24 at 1202 Start: 10-30-2024 End: 10-30-2024 take 5 mg intravenously every four hours as needed for hypertension 5 mg, IntraVENous, Every 4 hours PRN, high blood pressure, sbp greater than 160, Starting on Mon10/30/24 at 0432 iopamidol (Isovue-370) 76 % injection 75 mL (2 sources) Start: 01-06-2025 End: 01-06-2025 take 75 mL intravenously once as needed 75 mL, IntraVENous, IMG once PRN, contrast, Starting on Mon01/06/25 at 0216, For 1 dose levothyroxine sodium 0.088 mg oral tablet (20 sources) l-Thyrox ine Start: 01-07-2025 End: 01-08-2025 take 88 ug by mouth once daily before breakfast 88 mcg, Oral, Daily before breakfast, First dose (after last modification) on Mon01/07/25 at 0600 Start: 10-30-2024 End: 11-01-2024 take 88 ug by mouth once daily before breakfast 88 mcg, Oral, Daily before breakfast, First dose on Mon10/30/24 at 0600 Start: 10-18-2024 End: 10-19-2024 take 25 ug by mouth once daily before breakfast 25 mcg, Oral, Daily before breakfast, First dose on Mon10/18/24 at 0600 Start: 04-11-2024 End: 04-12-2024 take 88 ug by mouth once daily before breakfast 88 mcg, Oral, Daily before breakfast, First dose on Mon04/11/24 at 0600 take 1 capsule by [facility] once daily before breakfast levothyroxine (Tirosint) 88 MCG capsule Take 88 mcg by mouth every morning (before breakfast). Active lidocaine 0.04 mg/mg medicated patch (2 sources) Antiarrhythmic, Amide Local Anesthetic Start: 04-10-2024 End: 04-12-2024 apply 1 dose transdermal route once daily, then apply 1 dose transdermal route every twelve hours 1 patch, TransDERmal, Administer over 12 Hours, Daily, First dose on Mon04/10/24 at 1500, Apply patch to back. Patch may remain in place for up to 12 hours in any 24 hour period. losartan potassium 50 mg oral tablet (13 sources) Angiotensin 2 Receptor Neto Start: 04-10-2024 End: 11-01-2024 take 50 mg by mouth twice daily 50 mg, Oral, 2 times daily, First dose on Mon10/17/24 at 2100 take 1 tablet by mouth once hayley y losartan (COZAAR) 50 mg tablet Take 50 mg by mouth once daily. Active magnesium sulfate IVPB premix 2,000 mg (2 sources) Start: 10-30-2024 End: 11-01-2024 magnesium sulfate IVPB premix 2,000 mg melatonin 3 mg oral tablet (20 sources) Start: 01-07-2025 End: 01-08-2025 take 3 mg by mouth once daily 3 mg, Oral, Nightly, First dose on Mon01/07/25 at 2099 Start: 10-29-2024 End: 11-01-2024 take 3 mg by mouth once daily 3 mg, Oral, Nightly, Fir st dose on Mon10/29/24 at 2099 Start: 10-17-2024 End: 10-19-2024 take 10 mg by mouth once daily 10 mg, Oral, Nightly, F irst dose on Mon10/17/24 at 2099 Start: 04-10-2024 End: 04-12-2024 take 10 mg by mouth once daily 10 mg, Oral, Nightly, F irst dose on Mon04/10/24 at 2099 take 3 tablets by mo uth once daily Melatonin 3 MG tablet dispersible Take 9 mg by mouth Nightly. Active melatonin 3 mg c apsules Take by mouth. Active metoprolol tartrate 25 mg oral tablet (20 sources) beta-Adrenergic Neto Start: 10-30-2024 End: 12-31-2024 take 1 tablet by mouth three times daily metoprolol tartrate (Lopressor) 25 MG tablet Take 1 tablet (25 mg) by mouth 3 times daily. 90 tablet 1 11/01/2024 Active Start: 10-29-2024 5 mg, IntraVEN ous, Once, On Mon10/29/24 at 1650, For 1 dose Start: 10-29-2024 take 25 mg by mouth once 25 mg , Oral, Once, On Mon10/29/24 at 1415, For 1 dose Start: 10-29-2024 take 50 mg by mouth once 50 mg , Oral, Once, On Mon10/29/24 at 1035, For 1 dose Start: 10-17-2024 End: 10-19-2025 take 25 mg by mouth twice daily 25 mg, Oral, 2 times d aily, First dose on Mon01/06/25 at 1045 Start: 10-17-2024 End: 10-19-2024 take 5 mg intravenously every six hours as needed 5 mg, IntraVENous, Every 6 hours PRN, tachycardia, for HR greater than 110, Starting on Mon10/17/24 at 1404 Start: 10-17-2024 take 50 mg by mouth once 50 mg , Oral, Once, On Mon10/17/24 at 1220, For 1 dose metoprolol tartr ate (Lopressor) 50 MG tablet Take by mouth. Active 1 ml morphine sulfate 4 mg/ml cartridge (4 sources) Opioid Agonist Start: 10-30-2024 End: 10-30-2024 take 1 dose by mouth every hour 2 mg, IntraVENous, Once, On Mon10/30/24 at 0615, For 1 dose, If oral and IV narcotics ordered, use oral first and only use IV if oral is ineffective or cannot take oral. Do Not give oral and IV within 1 hour of each other unless specifically ordered. Start: 04-10-2024 End: 04-10-2024 take 1 dose by mouth every hour 2 mg, IntraVENous, Once, On Mon04/10/24 at 1535, For 1 dose, If oral and IV narcotics ordered, use oral first and only use IV if oral is ineffective or cannot take oral. Do Not give oral and IV within 1 hour of each other unless specifically ordered. 1 ml naloxone hydrochloride 0.4 mg/ml injection (2 sources) Opioid Antagonist Start: 04-10-2024 End: 04-12-2024 0.4 mg, IntraVENous, Every 5 min PRN, opioid reversal, respiratory depression, Starting on Mon04/10/24 at 2022, +++ For RR 24 hr nitroglycerin 0.4 mg/hr transdermal system (2 sources) Nitrate Vasodilator Start: 10-29-2024 End: 10-30-2024 apply 1 dose transdermal route every twelve hours, then apply 1 dose transdermal route once 1 patch, TransDERmal, Administer over 12 Hours, Once, On Mon10/29/24 at 1625, For 1 dose 2 ml ondansetron 2 mg/ml injection (4 sources) Serotonin-3 Receptor Antagonist Start: 01-06-2025 End: 01-06-2025 4 mg, IntraVENous, Once, On Mon01/06/25 at 0040, For 1 dose Start: 10-30-2024 End: 11-01-2024 take 4 mg intravenously every four hours as needed for nausea and vomiting 4 mg, IntraVENous, Every 4 hours PRN, nausea, vomiting, Starting on Mon10/30/24 at 0159 ondansetron ODT (Zofran-ODT) disintegrating tablet 4 mg (4 sources) Start: 01-06-2025 End: 01-08-2025 take 1 tablet by mouth every eight hours as needed for nausea and vomiting ondansetron ODT (Zofran-ODT) disintegrating tablet 4 mg Start: 10-17-2024 End: 10-19-2024 take 1 tablet by mouth every eight hours as needed for nausea and vomiting ondansetron ODT (Zofran-ODT) disintegrating tablet 4 mg Petrolatum (2 sources) Start: 01-06-2025 End: 01-08-2025 Topical, 2 times daily PRN, dry skin, Starting on Mon01/06/25 at 1625, Apply to legs polyethylene glycol [id number] [id number] mg powder for oral solution (20 sources) Osmotic Laxative Start: 01-06-2025 End: 01-08-2025 take 17 g by mouth every twenty-four hours as needed for constipation Start: 10-30-2024 End: 11-01-2024 take 17 g by mouth every twenty-four hours as needed for constipation 17 g, Oral, Daily PRN, constipation, Starting on Mon10/30/24 at 0736, 1st line for treatment of constipation - give scheduled if no bowel movement in past 24 hours. Start: 10-17-2024 End: 10-19-2024 take 17 g by mouth every twenty-four hours as needed for constipation 17 g, Oral, Daily PRN, constipation, Starting on Mon10/17/24 at 1400, 1st line for treatment of constipation - give scheduled if no bowel movement in past 24 hours. Start: 04-10-2024 End: 04-12-2024 take 17 g by mouth every twenty-four hours as needed for constipation 17 g, Oral, Daily PRN, constipation, Starting on Mon04/10/24 at 2009, 1st line for treatment of constipation - give scheduled if no bowel movement in past 24 hours. prochlorperazine 5 mg/ml injectable solution (4 sources) Phenothiazine Start: 10-29-2024 End: 10-29-2024 5 mg, IntraVENous, Once, On Mon10/29/24 at 1745, For 1 dose Start: 04-10-2024 End: 04-12-2024 take 5 mg intravenously every six hours as needed for nausea and vomiting 5 mg, IntraVENous, Every 6 hours PRN, nausea, vomiting, Starting on Mon04/10/24 at 2108 QUEtiapine 25 mg oral tablet (4 sources) Atypical Antipsychotic Start: 10-31-2024 End: 11-01-2024 take 12.5 mg by mouth twice daily as needed 12.5 mg, Oral, 2 times daily PRN, agitation, Starting on Mon10/31/24 at 1652 Start: 10-18-2024 End: 10-18-2024 take 12.5 mg by mouth once 12.5 mg, Oral, Once, On Mon10/18/24 at 2300, For 1 dose 1000 ml sodium chloride 9 mg/ml injection (6 sources) Start: 01-06-2025 End: 01-06-2025 1,000 mL, IntraVENous, at 1, 000 mL/hr, Administer over 1 Hours, Once, On Mon01/06/25 at 0040, For 1 dose Start: 04-11-2024 End: 04-12-2024 1,000 mL, IntraVENous, at 50 0 mL/hr, Administer over 2 Hours, Once, On Mon04/11/24 at 2315, For 1 dose Start: 04-10-2024 End: 04-10-2024 500 mL, IntraVENous, at 500 mL/hr, Administer over 1 Hours, Once, On Mon04/10/24 at 1450, For 1 dose sotalol hydrochloride 80 mg oral tablet (2 sources) Antiarrhythmic End: 04-12-2024 sotalol (Betapace) 80 MG tablet Take 40 mg by mouth in the morning and 40 mg before bedtime. Hold for Sbp 04/12/2024 Discontinued (Stop taking at discharge) spironolactone 25 mg oral tablet (10 sources) Aldosterone Antagonist Start: 10-17-2024 End: 10-20-2025 take 1 tablet by mouth once daily spironolactone (Aldactone) 25 MG tablet Take 1 tablet (25 mg) by mouth daily. 10/20/2024 11/01/2024 Discontinued (Stop taking at discharge) 10 actuat tiotropium 0.0025 mg/actuat inhalation spray (2 sources) Anticholinergic Start: 04-11-2024 End: 08-23-2024 2 puff, Inhalation, Daily, First dose on Mon04/11/24 at 0900, Instruct to hold breath for 10 seconds after each inhalation. Before first use, prime inhaler by actuating until aerosal cloud is seen, then actuating 3 more times. tiZANidine 4 mg oral tablet (17 sources) Central alpha-2 Adrenergic Agonist Start: 10-30-2024 End: 11-01-2024 take 4 mg by mouth three times daily as needed for muscle spasms 4 mg, Oral, 3 times daily PRN, muscle spasms, Starting on Mon10/30/24 at 1715 Start: 10-17-2024 End: 10-19-2024 take 4 mg by mouth three times daily 4 mg, Oral, 3 times daily, First dose on Mon10/17/24 at 1410 Start: 04-10-2024 End: 11-19-2024 take 4 mg by mouth three times daily 4 mg, Oral, 3 times daily, First dose on Mon04/10/24 at 2100 traZODone hydrochloride 50 mg oral tablet (17 sources) Serotonin Reuptake Inhibitor Start: 10-30-2024 End: 11-01-2024 take 25 mg by mouth once daily 25 mg, Oral, Nightly, First dose on Mon10/30/24 at 2100 Start: 10-17-2024 End: 10-19-2024 take 25 mg by mouth once daily 25 mg, Oral, Nightly, F irst dose on Mon10/17/24 at 2100 Start: 04-10-2024 End: 04-12-2024 take 25 mg by mouth once daily 25 mg, Oral, Nightly, F irst dose on Mon04/10/24 at 2100 traZODone (Desyr el) 50 MG tablet Take 25 mg by mouth Nightly. Active Problems Active Problems Problem Classification Problem Date Documented Da te Episodic/Chronic Acute myocardial infarction (4 sources) Myocardial infarction; Translations: [Non-ST elevation (NSTEMI) myocardial infarction] Onset: 10-17-2024 10-17-2024 Chronic Administrative/social admission (3 sources) First encounter by subject; Translations: [Persons encountering health services in other specified circumstances] Onset: 11-19-2024 11-19-2024 Episodic Anxiety disorders (5 sources) Anxiety state; Translations: [Generalized anxiety disorder] Onset: 07-28-2014 10-30-2024 Chronic Cardiac dysrhythmias (20 sources) Atrial fibrillation; Translations: [Unspecified atrial fibrillation] Onset: 10-17-2024 Resolved: 10-30-2024 08-23-2024 Chronic Chronic obstructive pulmonary disease and bronchiectasis (1 source) Chronic obstructive pulmonary disease, unspecified; Translations: [Chronic obstructive pulmonary disease, unspecified] Onset: 06-12-2024 Chronic Congestive heart failure; nonhypertensive (14 sources) Acute heart failure; Translations: [Heart failure, unspecified] Onset: 10-29-2024 10-29-2024 Chronic Delirium, dementia, and amnestic and other cognitive disorders (16 sources) Dementia; Translations: [Unspecified dementia without behavioral disturbance] Onset: 08-02-2022 10-24-2024 Chronic Disorders of lipid metabolism (5 sources) Pure hypercholesterolemi a; Translations: [Pure hypercholesterolemi a, unspecified] Onset: 10-30-2024 10-30-2024 Chronic Essential hypertension (12 sources) Hypertensive disorder; Translations: [Essential (primary) hypertension] Onset: 08-23-2024 08-19-2024 Chronic Malaise and fatigue (12 sources) Asthenia; Translations: [Other malaise] Onset: 10-30-2024 10-30-2024 Episodic Mood disorders (5 sources) Depressive disorder; Translations: [Depressive disorder] Onset: 10-30-2024 10-30-2024 Chronic Nonspecific chest pain (4 sources) Chest pain; Translations: [Chest pain, unspecified] Onset: 10-17-2024 10-17-2024 Episodic Other bone disease and musculoskeletal deformities (5 sources) Disorder of bone and articular cartilage; Translations: [Disorder of bone, unspecified] Onset: 10-30-2024 10-30-2024 Episodic Other ear and sense organ disorders (6 sources) Bilateral hearing loss; Translations: [Sensorineural hearing loss, unilateral, right ear, 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] 11-22-2023 Chronic Other ear and sense organ disorders (3 sources) Abnormal auditory perception; Translations: [Other abnormal auditory perceptions, unspecified ear] 11-22-2023 Episodic Other fractures (2 sources) Closed fracture of first lumbar vertebra; Translations: [Unspecified fracture of first lumbar vertebra, initial encounter for closed fracture] 04-10-2024 Episodic Other gastrointestinal disorders (3 sources) Slow transit constipation; Translations: [Slow transit constipation] Onset: 01-05-2025 01-07-2025 Episodic Other gastrointestinal disorders (4 sources) History of pancreatitis; Translations: [Personal history of other diseases of the digestive system] Onset: 01-06-2025 01-06-2025 Episodic Other gastrointestinal disorders (1 source) Slow transit constipation; Translations: [Slow transit constipation] Onset: 10-30-2024 Episodic Other nervous system disorders (7 sources) Cognitive deficit in communication skills; Translations: [Cognitive communication deficit] Onset: 12-22-2023 10-24-2024 Chronic Other nervous system disorders (1 source) Unspecified lack of coordination; Translations: [Unspecified lack of coordination] Onset: 01-22-2025 Episodic Otitis media and related conditions (3 sources) Chronic eustachian tube salpingitis; Translations: [Chronic Eustachian salpingitis, unspecified ear] 11-22-2023 Chronic Pancreatic disorders (not diabetes) (8 sources) Acute pancreatitis; Translations: [Acute pancreatitis without necrosis or infection, unspecified] Onset: 01-05-2025 01-06-2025 Episodic Residual codes; unclassified (1 source) Restlessness and agitation; Translations: [Restlessness and agitation] Onset: 01-22-2025 Chronic Residual codes; unclassified (2 sources) Delirium; Translations: [Disorientation, unspecified] 01-07-2025 Episodic Residual codes; unclassified (2 sources) Disorientation, unspecified; Translations: [Disorientation, unspecified] Onset: 01-05-2025 Episodic Thyroid disorders (6 sources) Hypothyroidism; Translations: [Hypothyroidism, unspecified] Onset: 10-30-2024 10-30-2024 Chronic Unclassified (2 sources) Permanent atrial fibrillation; Translations: [Permanent atrial fibrillation (HCC)] Onset: 11-19-2024 Unclassified (1 source) Low back pain, unspecified; Translations: [Low back pain, unspecified] Onset: 04-10-2024 Unclassified (1 source) Chronic atrial fibrillation, unspecified; Translations: [Chronic atrial fibrillation, unspecified] Onset: 01-22-2025 Past or Other Problems Problem Classification Problem Date Documented Da te Episodic/Chronic Cardiac dysrhythmias (4 sources) Bradycardia; Translations: [Bradycardia, unspecified] Onset: 04-10-2024 04-10-2024 Episodic Other and unspecified benign neoplasm (5 sources) History of polyp of colon; Translations: [History of colonic polyps] Onset: 03-19-2020 10-30-2024 Episodic Other bone disease and musculoskeletal deformities (5 sources) Osteopenia; Translations: [Other specified disorders of bone density and structure, unspecified site] Onset: 03-19-2020 10-30-2024 Episodic Other ear and sense organ disorders (5 sources) Bilateral tinnitus; Translations: [Tinnitus, bilateral] Onset: 03-19-2020 10-30-2024 Episodic Other fractures (2 sources) Unspecified fracture of first lumbar vertebra, initial encounter for closed fracture; Translations: [Unspecified fracture of first lumbar vertebra, initial encounter for closed fracture (HCC)] Onset: 04-10-2024 Episodic Other fractures (1 source) Stable burst fracture of first lumbar vertebra, subsequent encounter for fracture with routine healing; Translations: [Stable burst fracture of first lumbar vertebra, subsequent encounter for fracture with routine healing] Onset: 08-23-2024 Episodic Other gastrointestinal disorders (5 sources) Constipation; Translations: [Constipation, unspecified] Onset: 08-10-2022 10-30-2024 Episodic Spondylosis; intervertebral disc disorders; other back problems (20 sources) Low back pain; Translations: [Low back pain without sciatica, unspecified back pain laterality, unspecified chronicity] Onset: 03-19-2020 04-10-2024 Episodic Unclassified (1 source) Low back pain, unspecified; Translations: [Low back pain, unspecified] Onset: 04-10-2024 Results Test Name Value Interpretation Reference Range Facility Anion gap in Serum or Plasma Ordered By: Kathi Juarez on 01-15-2025 Anion gap [Moles/Vol] 12 mmol/L - [facility] BUN/creatinine ratioOrdered By: Kathi Juarez on 01-15-2025 Urea nitrogen/Creatinine [Mass ratio] 17.1 mg/mg - [facility] Carbon dioxide, total [Moles /volume] in Central venous bloodOrdered By: Kathi Juarez on 01-15-2025 CO2 [Moles/Vol] 21.1 mmol/L 21.0-32.0 [facility] Chloride assayOrdered By: Emir Juarez on 01-15-2025 Chloride [Moles/Vol] 101 mmol/L 98-108 [facility] Glomerular filtration rate ( GFR) estimation/1.73 sq m using serum, plasma, or whole bOrdered By: Kathi Juarez on 01-15-2025 GFR/1.73 sq M.predicted among non-blacks MDRD (S/P/Bld) [Vol rate/Area] 56 mL/min/{1.73_m2} Low >60 [facility] Comment on above: mL/min/1.73m2 CKD-EP I Creatinine Equation (2020) Magnesium measurement (mass/ volume)Ordered By: Kathi Juarez on 01-15-2025 Magnesium (Unsp spec) [Mass/Vol] 2.1 mg/dL 1.5-2.2 [facility] Potassium measurement (mass/ volume)Ordered By: Kathi Juarez on 01-15-2025 Potassium (Unsp spec) [Mass/Vol] 4.2 mmol/L 3.3-5.1 [facility] Serum creatinine measurement (mass/volume)Ordered By: Kathi Juarez on 01-15-2025 Creatinine [Mass/Vol] 1.01 mg/dL 0.70-1.20 [facility] Serum glucose measurement (m ass/volume)Ordered By: Kathi Juarez on 01-15-2025 Glucose [Mass/Vol] 94 mg/dL 70-99 [facility] Serum or plasma calcium adam urement (mass/volume)Ordered By: Kathi Juarez on 01-15-2025 Calcium [Mass/Vol] 9.7 mg/dL 7.6-11.0 [facility] Serum or plasma urea nitroge n measurement (mass/volume)Ordered By: Kathi Juarez on 01-15-2025 Urea nitrogen [Mass/Vol] 17 mg/dL 4-19 [facility] Sodium levelOrdered By: Fuentes Juarez on 01-15-2025 Sodium [Moles/Vol] 134 mmol/L 133-145 [facility] Anion gap in Serum or Plasma Ordered By: Kathi Juarez on 01-14-2025 Anion gap [Moles/Vol] 9 mmol/L 5-15 [facility] BUN/creatinine ratioOrdered By: Kathi Juarez on 01-14-2025 Urea nitrogen/Creatinine [Mass ratio] 17.9 mg/mg 10-20 [facility] Carbon dioxide, total [Moles /volume] in Central venous bloodOrdered By: Kathi Juarez on 01-14-2025 CO2 [Moles/Vol] 24.2 mmol/L 21.0-32.0 [facility] Chloride assayOrdered By: Emir Juarez on 01-14-2025 Chloride [Moles/Vol] 103 mmol/L 98-108 [facility] Glomerular filtration rate ( GFR) estimation/1.73 sq m using serum, plasma, or whole bOrdered By: Kathi Juarez on 01-14-2025 GFR/1.73 sq M.predicted among non-blacks MDRD (S/P/Bld) [Vol rate/Area] 60 mL/min/{1.73_m2} >60 [facility] Comment on above: mL/min/1.73m2 CKD-EP I Creatinine Equation (2020) Magnesium measurement (mass/ volume)Ordered By: Kathi Juarez on 01-14-2025 Magnesium (Unsp spec) [Mass/Vol] 2.3 mg/dL High 1.5-2.2 [facility] Potassium measurement (mass/ volume)Ordered By: Kathi Juarez on 01-14-2025 Potassium (Unsp spec) [Mass/Vol] 4.3 mmol/L 3.3-5.1 [facility] Serum creatinine measurement (mass/volume)Ordered By: Kathi Juarez on 01-14-2025 Creatinine [Mass/Vol] 0.95 mg/dL 0.70-1.20 [facility] Serum glucose measurement (m ass/volume)Ordered By: Kathi Juarez on 01-14-2025 Glucose [Mass/Vol] 94 mg/dL 70-99 [facility] Serum or plasma calcium adam urement (mass/volume)Ordered By: Kathi Juarez on 01-14-2025 Calcium [Mass/Vol] 9.7 mg/dL 7.6-11.0 [facility] Serum or plasma urea nitroge n measurement (mass/volume)Ordered By: Kathi Juarez on 01-14-2025 Urea nitrogen [Mass/Vol] 17 mg/dL 4-19 [facility] Sodium levelOrdered By: Fuentes Juarez on 01-14-2025 Sodium [Moles/Vol] 137 mmol/L 133-145 [facility] 30on 01-08-2025 30 Normal [facility] 30 Normal [facility] [id number] 01-08-2025 [id number] [facility] [id number] Transportation has been confirmed for 3 PM. RN and director of community services notified via secure chat. Son[employer]arris, notified via TC; VM left. [facility] [id number] [facility] [id number] Discharge med list transmitted to [facility] via Careport per TCC request. [facility] [id number] Discharge order noted in epic. [employer] tasked to set up cot transport. [facility] [id number] [facility] CBC (HEMOGRAM)on 01-08-2025 Erythrocyte distribution width (RBC) [Ratio] 15.9 % High 11.5-15.0 [facility] Comment on above: Performed By: #### L [id number] ####[employer] Supervisor: SHEEBA MUSTAFA ([phone])[address] Hematocrit (Bld) [Volume fraction] 41.2 % Normal 35.0-47.0 [facility] Comment on above: Performed By: #### L [id number] ####[employer] Supervisor: SHEEBA MUSTAFA ([phone])[address] Hemoglobin (Bld) [Mass/Vol] 13.2 g/dL Normal 11.7-16.0 [facility] Comment on above: Performed By: #### L [id number] ####[employer] Supervisor: SHEEBA MUSTAFA ([phone])[facility])[address] [place] [address] MCH (RBC) [Entitic mass] 28.4 pg Normal 26.0-34.0 [facility] Comment on above: Performed By: #### L [id number] ####[employer] Supervisor: SHEEBA MUSTAFA ([phone])[facility])[address] [place] [address] MCHC 32.0 % Normal 30.5-36.0 [facility] Comment on above: Performed By: #### L [id number] ####[employer] Supervisor: SHEEBA MUSTAFA ([phone])[facility])[address] [place] [address] MCV (RBC) [Entitic vol] 88.6 fL Normal 77.0-99.0 S [facility] Comment on above: Performed By: #### L [id number] ####[employer] Supervisor: SHEEBA MUSTAFA ([phone])[facility])[address] [place] [address] Platelet mean volume (Bld) [Entitic vol] 9.4 fL Normal 9.0-12.7 [facility] Comment on above: Performed By: #### L [id number] ####[employer] Supervisor: SHEEBA MUSTAFA ([phone])[facility])[address] [place] [address] Platelets (Bld) [#/Vol] 248 10*3/uL Normal 140-440 [facility] Comment on above: Performed By: #### L [id number] ####[employer] Supervisor: SHEEBA MUSTAFA ([phone])[facility])[address] [place] [address] RBC (Bld) [#/Vol] 4.65 10*6/uL Normal 3.80-5.20 [facility] Comment on above: Performed By: #### L [id number] ####[employer] Supervisor: SHEEBA MUSTAFA ([phone])[facility] ([facility])[address] [place] [address] WBC (Bld) [#/Vol] 6.6 10*3/uL Normal 3.6-10.7 [facility] Comment on above: Performed By: #### L [id number] ####[employer] Supervisor: SHEEBA MUSTAFA ([phone])[facility] ([facility])[address] [place] [address] CBC panel Auto (Bld)on 01-08 Erythrocyte distribution width (RBC) [Ratio] 15.9 % High 11.5 - 15.0 % [facility] Hematocrit (Bld) [Volume fraction] 41.2 % 35.0 - 47.0 % [facility] Hemoglobin (Bld) [Mass/Vol] 13.2 g/dL 11.7 - 16.0 g/dL [facility] Interpretation and review of laboratory results Abnormal [facility] MCH (RBC) [Entitic mass] 28.4 pg 26. 0 - 34.0 pg [facility] MCHC (RBC) [Mass/Vol] 32 % 30.5 - 36.0 % [facility] MCV (RBC) [Entitic vol] 88.6 fL 77.0 - 99.0 fL [facility] Platelet mean volume (Bld) [Entitic vol] 9.4 fL 9.0 - 12.7 fL [facility] Platelets (Bld) [#/Vol] 248 10*3/uL 140 - 440 10*3/uL [facility] RBC (Bld) [#/Vol] 4.65 10*6/uL 3.80 - 5.2 0 10*6/uL [facility] WBC (Bld) [#/Vol] 6.6 10*3/uL 3.6 - 10.7 10*3/uL [facility] COMPREHENSIVE METABOLIC PANE Hua 01-08-2025 Albumin [Mass/Vol] 3.1 g/dL Low 3.4-4.8 [facility] Comment on above: Performed By: #### L [id number] ####[employer] Supervisor: SHEEBA MUSTAFA ([phone])[facility] ([facility])[address] [place] [address] ALP [Catalytic activity/Vol] 65 U/L Normal 40-150 [facility] Comment on above: Performed By: #### L [id number] ####[employer] Supervisor: SHEEBA MUSTAFA ([phone])[facility] ([facility])[address] [place] [address] ALT [Catalytic activity/Vol] 17 U/L Normal <30 [facility] Comment on above: Performed By: #### L [id number] ####[employer] Supervisor: SHEEBA MUSTAFA ([phone])[facility] ([facility])[address] [place] [address] Anion gap [Moles/Vol] 8 mmol/L Normal 3-13 [facility] Comment on above: Performed By: #### L [id number] ####[employer] Supervisor: SHEEBA MUSTAFA ([phone])[facility] ([facility])[address] [place] [address] AST [Catalytic activity/Vol] 25 U/L Normal <34 [facility] Comment on above: Performed By: #### L [id number] ####[employer] Supervisor: SHEEBA MUSTAFA ([phone])[facility] ([facility])[address] [place] [address] Bilirubin [Mass/Vol] 0.6 mg/dL Normal <1.2 [facility] Comment on above: Performed By: #### L [id number] ####[employer] Supervisor: SHEEBA MUSTAFA ([phone])[facility] ([facility])[address] [place] [address] Calcium [Mass/Vol] 9.2 mg/dL Normal 8.8-10.0 [facility] Comment on above: Performed By: #### L [id number] ####[employer] Supervisor: SHEEBA MUSTAFA ([phone])[facility] ([facility])[address] [place] [address] [place] Chloride [Moles/Vol] 111 mmol/L High 98-107 [facility] Comment on above: Performed By: #### L [id number] ####[employer] Supervisor: SHEEBA MUSTAFA ([phone])[facility] ([facility])[address] [place] [address] CO2 [Moles/Vol] 19 mmol/L Low 23-31 [facility] Comment on above: Performed By: #### L [id number] ####[employer] Supervisor: SHEEBA MUSTAFA ([phone])[facility] ([facility])[address] [place] [address] Creatinine [Mass/Vol] 0.86 mg/dL Normal 0.57-1.11 [facility] Comment on above: Performed By: #### L [id number] ####[employer] Supervisor: SHEEBA MUSTAFA ([phone])[facility])[address] [place] [address] GLOMERULAR FILTRATION RATE ML/MIN/1.73 SQ M.PREDICTED 67.5 mL/min/1.73m*2 Normal >60.0 [facility] Comment on above: Result Comment: Calc ulation based on the Chronic Kidney Disease Epidemiology Collaboration (CKD-EPI) equation refit without adjustment for race Performed By: #### L [id number] ####[employer] Supervisor: SHEEBA MUSTAFA ([phone])[facility] ([facility])[address] [place] [address] Glucose [Mass/Vol] 111 mg/dL Normal 82-115 [facility] Comment on above: Performed By: #### L [id number] ####[employer] Supervisor: SHEEBA MUSTAFA ([phone])[facility])[address] [place] [address] Potassium [Moles/Vol] 4.1 mmol/L Normal 3.5-5.1 [facility] Comment on above: Result Comment: [facility] potassium values may be up to 0.5 mmol/L lower than serum values. Performed By: #### L [id number] ####[employer] Supervisor: SHEEBA MUSTAFA ([phone])[facility])[address] [place] [address] Protein [Mass/Vol] 6.5 g/dL Normal 6.4-8.3 [facility] Comment on above: Performed By: #### L [id number] ####[employer] Supervisor: SHEEBA [phone])[facility] ([facility])[address] [place] [address] Sodium [Moles/Vol] 138 mmol/L Normal 136-145 [facility] Comment on above: Performed By: #### L [id number] ####[employer] Supervisor: SHEEBA MUSTAFA ([phone])[facility] ([facility])[address] [place] [address] Urea nitrogen [Mass/Vol] 21 mg/dL Normal 9-23 [facility] Comment on above: Performed By: #### L [id number] ####[employer] Supervisor: SHEEBA MUSTAFA ([phone])[facility] ([facility])[address] [place] [address] Comprehensive metabolic 1998 panelon 01-08-2025 Albumin [Mass/Vol] 3.1 g/dL Low 3.4 - 4.8 g/dL [facility] ALP [Catalytic activity/Vol] 65 U/L 40 - 150 U/L [facility] ALT [Catalytic activity/Vol] 17 U/L [facility] U/L [facility] Anion gap [Moles/Vol] 8 mmol/L 3 - 13 mmol/L [facility] AST [Catalytic activity/Vol] 25 U/L [facility] - 34 U/L [facility] Bilirubin [Mass/Vol] 0.6 mg/dL [facility] - 1.2 mg/dL [facility] Calcium [Mass/Vol] 9.2 mg/dL 8.8 - 10. 0 mg/dL [facility] Chloride [Moles/Vol] 111 mmol/L High 98 - 10 7 mmol/L [facility] CO2 [Moles/Vol] 19 mmol/L Low 23 - 31 mmol/L [facility] Creatinine [Mass/Vol] 0.86 mg/dL 0.57 - 1.11 mg/dL [facility] GFR/1.73 sq M.predicted (S/P/Bld) [Vol rate/Area] 67.5 mL/min - [facility] Comment on above: Calculation based on the Chronic Kidney Disease Epidemiology Collaboration (CKD-EPI) equation refit without adjustment for race Glucose [Mass/Vol] 111 mg/dL 82 - 115 mg/dL [facility] Interpretation and review of laboratory results Abnormal [facility] Potassium [Moles/Vol] 4.1 mmol/L 3.5 - 5.1 mmol/L [facility] Comment on above: Plasma potassium morro ues may be up to 0.5 mmol/L lower than serum values. Protein [Mass/Vol] 6.5 g/dL 6.4 - 8.3 g/dL [facility] Sodium [Moles/Vol] 138 mmol/L 136 - 145 mmol/L [facility] Urea nitrogen [Mass/Vol] 21 mg/dL 9 - 23 mg/d L [facility] Progress Noteon 01-08-2025 Progress Note Normal [facility] 30on 01-07-2025 30 Normal [facility] 30 Normal [facility] Bacteria identified Cx Nom ( U)Ordered By: Addis Lutz on 01-07-2025 Interpretation and review of laboratory results Normal [facility] CBC W Auto Differential pane l (Bld)Ordered By: Deshawn Granger on 01-07-2025 Basophils (Bld) [#/Vol] 0 10*3/uL 0.0 - 0.2 10*3/uL [facility] Basophils/100 WBC (Bld) 0.5 % 0.0 - 2.0 % [facility] Eosinophils (Bld) [#/Vol] 0.1 10*3/uL 0. 0 - 0.5 10*3/uL [facility] Eosinophils/100 WBC (Bld) 1.9 % 0.0 - 6.0 % [facility] Erythrocyte distribution width (RBC) [Ratio] 15.9 % High 11.5 - 15.0 % [facility] Hematocrit (Bld) [Volume fraction] 42.9 % 35.0 - 47.0 % [facility] Hemoglobin (Bld) [Mass/Vol] 13.4 g/dL 11.7 - 16.0 g/dL [facility] Immature granulocytes (Bld) [#/Vol] 0 10*3/uL NINF - 0.1 10*3/uL [facility] Immature granulocytes/100 WBC (Bld) 0.3 % 0.0 - 2.0 % [facility] Interpretation and review of laboratory results Abnormal [facility] Lymphocytes (Bld) [#/Vol] 2.9 10*3/uL 1. 0 - 4.3 10*3/uL [facility] Lymphocytes/100 WBC (Bld) 49.1 % High 15 .0 - 45.0 % [facility] MCH (RBC) [Entitic mass] 27.5 pg 26. 0 - 34.0 pg [facility] MCHC (RBC) [Mass/Vol] 31.2 % 30.5 - 36.0 % [facility] MCV (RBC) [Entitic vol] 87.9 fL 77.0 - 99.0 fL [facility] Monocytes (Bld) [#/Vol] 0.6 10*3/uL 0.0 - 0.9 10*3/uL [facility] Monocytes/100 WBC (Bld) 9.5 % 5.0 - 13.0 % [facility] Neutrophils (Bld) [#/Vol] 2.2 10*3/uL 1. 8 - 7.5 10*3/uL [facility] Neutrophils/100 WBC (Bld) 38.7 % 38 .0 - 82.0 % [facility] Nucleated RBC/100 WBC (Bld) [Ratio] 0 % [facility] Platelet mean volume (Bld) [Entitic vol] 9.6 fL 9.0 - 12.7 fL [facility] Platelets (Bld) [#/Vol] 248 10*3/uL 140 - 440 10*3/uL [facility] RBC (Bld) [#/Vol] 4.88 10*6/uL 3.80 - 5.2 0 10*6/uL [facility] WBC (Bld) [#/Vol] 5.8 10*3/uL 3.6 - 10.7 10*3/uL [facility] CBC WITH AUTO DIFFERENTIALon 01-07-2025 Basophils (Bld) [#/Vol] 0.0 10*3/uL Normal 0.0-0.2 [facility] Comment on above: Performed By: #### L [id number] ####[employer] Supervisor: SHEEBA MUSTAFA ([phone])[address] Basophils/100 WBC (Bld) 0.5 % Normal 0.0-2.0 S [facility] Comment on above: Performed By: #### L [id number] ####[employer] Supervisor: SHEEBA MUSTAFA ([phone])[facility])[address] [place] [address] Eosinophils (Bld) [#/Vol] 0.1 10*3/uL Normal 0.0-0.5 [facility] Comment on above: Performed By: #### L [id number] ####[employer] Supervisor: SHEEBA MUSTAFA ([phone])[facility])[address] [place] [address] Eosinophils/100 WBC (Bld) 1.9 % Normal 0.0-6.0 [facility] Comment on above: Performed By: #### L [id number] ####[employer] Supervisor: SHEEBA MUSTAFA ([phone])[address] Erythrocyte distribution width (RBC) [Ratio] 15.9 % High 11.5-15.0 [facility] Comment on above: Performed By: #### L [id number] ####[employer] Supervisor: SHEEBA MUSTAFA ([phone])[address] Hematocrit (Bld) [Volume fraction] 42.9 % Normal 35.0-47.0 [facility] Comment on above: Performed By: #### L [id number] ####[employer] Supervisor: SHEEBA MUSTAFA ([phone])[address] Hemoglobin (Bld) [Mass/Vol] 13.4 g/dL Normal 11.7-16.0 [facility] Comment on above: Performed By: #### L [id number] ####[employer] Supervisor: SHEEBA MUSTAFA ([phone])[facility])[address] [place] [address] IMMATURE GRANS % 0.3 % Normal 0.0-2.0 [facility] Comment on above: Performed By: #### L [id number] ####[employer] Supervisor: SHEEBA MUSTAFA ([phone])[place] [address] [place] IMMATURE GRANS ABSOLUTE 0.0 10*3/uL Normal <0.1 [facility] Comment on above: Performed By: #### L [id number] ####[employer] Supervisor: SHEEBA MUSTAFA ([phone])[facility])[address] [place] [address] Lymphocytes (Bld) [#/Vol] 2.9 10*3/uL Normal 1.0-4.3 [facility] Comment on above: Performed By: #### L [id number] ####[employer] Supervisor: SHEEBA MUSTAFA ([phone])[facility])[address] [place] [address] Lymphocytes/100 WBC (Bld) 49.1 % High 15.0-45.0 [facility] Comment on above: Performed By: #### L [id number] ####[employer] Supervisor: SHEEBA MUSTAFA ([phone])[facility])[address] [place] [address] MCH (RBC) [Entitic mass] 27.5 pg Normal 26.0-34.0 [facility] Comment on above: Performed By: #### L [id number] ####[employer] Supervisor: SHEEBA MUSTAFA ([phone])[facility])[address] [place] [address] MCHC 31.2 % Normal 30.5-36.0 [facility] Comment on above: Performed By: #### L [id number] ####[employer] Supervisor: SHEEBA MUSTAFA ([phone])[facility])[address] [place] [address] MCV (RBC) [Entitic vol] 87.9 fL Normal 77.0-99.0 [facility] Comment on above: Performed By: #### L [id number] ####[employer] Supervisor: SHEEBA MUSTAFA ([phone])[facility])[address] [place] [address] Monocytes (Bld) [#/Vol] 0.6 10*3/uL Normal 0.0-0.9 [facility] Comment on above: Performed By: #### L [id number] ####[employer] Supervisor: SHEEBA MUSTAFA ([phone])[facility] ([facility])[address] [place] [address] Monocytes/100 WBC (Bld) 9.5 % Normal 5.0-13.0 [facility] Comment on above: Performed By: #### L [id number] ####[employer] Supervisor: SHEEBA MUSTAFA ([phone])[facility] ([facility])[address] [place] [address] NEUTROPHILS ABSOLUTE 2.2 10*3/uL Normal 1.8-7.5 [facility] Comment on above: Performed By: #### L [id number] ####[employer] Supervisor: SHEEBA MUSTAFA ([phone])[facility] ([facility])[address] [place] [address] Neutrophils/100 WBC (Bld) 38.7 % Normal 38.0-82.0 [facility] Comment on above: Performed By: #### L [id number] ####[employer] Supervisor: SHEEBA MUSTAFA ([phone])[facility] ([facility])[address] [place] [address] NRBC 0.0 /100 WBCs Normal 0.0-2.0 [facility] Comment on above: Performed By: #### L [id number] ####[employer] Supervisor: SHEEBA MUSTAFA ([phone])[facility] ([facility])[address] [place] [address] Platelet mean volume (Bld) [Entitic vol] 9.6 fL Normal 9.0-12.7 [facility] Comment on above: Performed By: #### L [id number] ####[employer] Supervisor: SHEEBA MUSTAFA ([phone])[facility] ([facility])[address] [place] [address] Platelets (Bld) [#/Vol] 248 10*3/uL Normal 140-440 [facility] Comment on above: Performed By: #### L [id number] ####[employer] Supervisor: SHEEBA MUSTAFA ([phone])[facility] ([facility])[address] [place] [address] RBC (Bld) [#/Vol] 4.88 10*6/uL Normal 3.80-5.20 [facility] Comment on above: Performed By: #### L [id number] ####[employer] Supervisor: SHEEBA MUSTAFA ([phone])[facility] ([facility])[address] [place] [address] WBC (Bld) [#/Vol] 5.8 10*3/uL Normal 3.6-10.7 [facility] Comment on above: Performed By: #### L [id number] ####[employer] Supervisor: SHEEBA MUSTAFA ([phone])[facility] ([facility])[address] [place] [address] COMPREHENSIVE METABOLIC PANE Hua 01-07-2025 Albumin [Mass/Vol] 3.1 g/dL Low 3.4-4.8 [facility] Comment on above: Performed By: #### L [id number] ####[employer] Supervisor: SHEEBA MUSTAFA ([phone])[facility] ([facility])[address] [place] [address] ALP [Catalytic activity/Vol] 65 U/L Normal 40-150 [facility] Comment on above: Performed By: #### L [id number] ####[employer] Supervisor: SHEEBA MUSTAFA ([phone])[facility])[address] [place] [address] ALT [Catalytic activity/Vol] 20 U/L Normal <30 [facility] Comment on above: Performed By: #### L [id number] ####[employer] Supervisor: SHEEBA MUSTAFA ([phone])[facility] ([facility])[address] [place] [address] Anion gap [Moles/Vol] 8 mmol/L Normal 3-13 [facility] Comment on above: Performed By: #### L [id number] ####[employer] Supervisor: SHEEBA MUSTAFA ([phone])[facility] ([facility])[address] [place] [address] AST [Catalytic activity/Vol] 30 U/L Normal <34 [facility] Comment on above: Performed By: #### L [id number] ####[employer] Supervisor: SHEEBA MUSTAFA ([phone])[facility] ([facility])[address] [place] [address] Bilirubin [Mass/Vol] 0.7 mg/dL Normal <1.2 [facility] Comment on above: Performed By: #### L [id number] ####[employer] Supervisor: SHEEBA MUSTAFA ([phone])[facility] ([facility])[address] [place] [address] Calcium [Mass/Vol] 8.9 mg/dL Normal 8.8-10.0 [facility] Comment on above: Performed By: #### L [id number] ####[employer] Supervisor: SHEEBA MUSTAFA ([phone])[facility] ([facility])[address] [place] [address] Chloride [Moles/Vol] 111 mmol/L High 98-107 [facility] Comment on above: Performed By: #### L [id number] ####[employer] Supervisor: SHEEBA MUSTAFA ([phone])[facility] ([facility])[address] [place] [address] CO2 [Moles/Vol] 19 mmol/L Low 23-31 [facility] Comment on above: Performed By: #### L [id number] ####[employer] Supervisor: SHEEBA MUSTAFA ([phone])[facility] ([facility])[address] [place] [address] Creatinine [Mass/Vol] 0.88 mg/dL Normal 0.57-1.11 [facility] Comment on above: Performed By: #### L [id number] ####[employer] Supervisor: SHEEBA MUSTAFA ([phone])[facility])[address] [place] [address] GLOMERULAR FILTRATION RATE ML/MIN/1.73 SQ M.PREDICTED 65.7 mL/min/1.73m*2 Normal >60.0 [facility] Comment on above: Result Comment: Calc ulation based on the Chronic Kidney Disease Epidemiology Collaboration (CKD-EPI) equation refit without adjustment for race Performed By: #### L [id number] ####[employer] Supervisor: SHEEBA MUSTAFA ([phone])[facility])[address] [place] [address] Glucose [Mass/Vol] 102 mg/dL Normal 82-115 [facility] Comment on above: Performed By: #### L [id number] ####[employer] Supervisor: SHEEBA MUSTAFA ([phone])[facility])[address] [place] [address] Potassium [Moles/Vol] 3.9 mmol/L Normal 3.5-5.1 [facility] Comment on above: Result Comment: [facility] potassium values may be up to 0.5 mmol/L lower than serum values. Performed By: #### L [id number] ####[employer] Supervisor: SHEEBA MUSTAFA ([phone])[address] Protein [Mass/Vol] 6.4 g/dL Normal 6.4-8.3 [facility] Comment on above: Performed By: #### L [id number] ####[employer] Supervisor: SHEEBA MUSTAFA ([phone])[address] Sodium [Moles/Vol] 138 mmol/L Normal 136-145 [facility] Comment on above: Performed By: #### L [id number] ####[employer] Supervisor: SHEEBA MUSTAFA ([phone])[address] Urea nitrogen [Mass/Vol] 16 mg/dL Normal 9-23 [facility] Comment on above: Performed By: #### L [id number] ####[employer] Supervisor: SHEEBA MUSTAFA ([phone])[facility])[address] [place] [address] Comprehensive metabolic 1998 panelon 01-07-2025 Albumin [Mass/Vol] 3.1 g/dL Low 3.4 - 4.8 g/dL [facility] ALP [Catalytic activity/Vol] 65 U/L 40 - 150 U/L [facility] ALT [Catalytic activity/Vol] 20 U/L NINF - 30 U/L [facility] Anion gap [Moles/Vol] 8 mmol/L 3 - 13 mmol/L [facility] AST [Catalytic activity/Vol] 30 U/L [facility] U/L [facility] Bilirubin [Mass/Vol] 0.7 mg/dL NINF - 1.2 mg/dL [facility] Calcium [Mass/Vol] 8.9 mg/dL 8.8 - 10. 0 mg/dL [facility] Chloride [Moles/Vol] 111 mmol/L High 98 - 10 7 mmol/L [facility] CO2 [Moles/Vol] 19 mmol/L Low 23 - 31 mmol/L [facility] Creatinine [Mass/Vol] 0.88 mg/dL 0.57 - 1.11 mg/dL [facility] GFR/1.73 sq M.predicted (S/P/Bld) [Vol rate/Area] 65.7 mL/min - PINF [facility] Comment on above: Calculation based on the Chronic Kidney Disease Epidemiology Collaboration (CKD-EPI) equation refit without adjustment for race Glucose [Mass/Vol] 102 mg/dL 82 - 115 mg/dL [facility] Interpretation and review of laboratory results Abnormal [facility] Potassium [Moles/Vol] 3.9 mmol/L 3.5 - 5.1 mmol/L [facility] Comment on above: Plasma potassium morro ues may be up to 0.5 mmol/L lower than serum values. Protein [Mass/Vol] 6.4 g/dL 6.4 - 8.3 g/dL [facility] Sodium [Moles/Vol] 138 mmol/L 136 - 145 mmol/L [facility] Urea nitrogen [Mass/Vol] 16 mg/dL 9 - 23 mg/d L [facility] Laboratory - Microbiology an d Antimicrobial susceptibilityOrdered By: Addis Lutz on 01-07-2025 Bacteria identified Cx Nom (U) Normal urogenital shonda present [facility] Progress Noteon 01-07-2025 Progress Note Normal [facility] Progress Note Normal [facility] Progress Note Nutrition rescreen completed. Chart reviewed. Patient to be monitored and followed by the diet research technician. BENNIE Pandey Normal [facility] Progress Note Normal [facility] CBC W Auto Differential pane l (Bld)Ordered By: Travis Daily on 01-06-2025 Erythrocyte distribution width (RBC) [Ratio] 15.7 % High 11.5 - 15.0 % [facility] Hematocrit (Bld) [Volume fraction] 40.7 % 35.0 - 47.0 % [facility] Hemoglobin (Bld) [Mass/Vol] 13.3 g/dL 11.7 - 16.0 g/dL [facility] MCH (RBC) [Entitic mass] 28.5 pg 26. 0 - 34.0 pg [facility] MCHC (RBC) [Mass/Vol] 32.7 % 30.5 - 36.0 % [facility] MCV (RBC) [Entitic vol] 87.3 fL 77.0 - 99.0 fL [facility] Nucleated RBC/100 WBC (Bld) [Ratio] 0 % [facility] Platelet mean volume (Bld) [Entitic vol] 9.2 fL 9.0 - 12.7 fL [facility] Comment on above: MPV is a calculated measurement using platelet volume ratio Platelets (Bld) [#/Vol] 271 10*3/uL 140 - 440 10*3/uL [facility] RBC (Bld) [#/Vol] 4.66 10*6/uL 3.80 - 5.2 0 10*6/uL [facility] WBC (Bld) [#/Vol] 6.2 10*3/uL 3.6 - 10.7 10*3/uL [facility] CBC WITH AUTO DIFFERENTIALon 01-06-2025 Erythrocyte distribution width (RBC) [Ratio] 15.7 % High 11.5-15.0 [facility] Comment on above: Performed By: #### L [id number], [id number] ####[employer] Supervisor: SHEEBA MUSTAFA ([phone])[facility] ([address] Hematocrit (Bld) [Volume fraction] 40.7 % Normal 35.0-47.0 [facility] Comment on above: Performed By: #### L [id number], [id number] ####[employer] Supervisor: SHEEBA MUSTAFA ([phone])[employer] [facility] ([facility])[address] Hemoglobin (Bld) [Mass/Vol] 13.3 g/dL Normal 11.7-16.0 [facility] Comment on above: Performed By: #### L [id number], [id number] ####[employer] Supervisor: SHEEBA MUSTAFA ([phone])[facility]Yam[facility] ([facility])[address] [place] [address] MCH (RBC) [Entitic mass] 28.5 pg Normal 26.0-34.0 [facility] Comment on above: Performed By: #### L [id number], [id number] ####[employer] Supervisor: SHEEBA MUSTAFA ([phone])[facility]Yam[facility] ([facility])[address] [place] [address] MCHC 32.7 % Normal 30.5-36.0 [facility] Comment on above: Performed By: #### L [id number], [id number] ####[employer] Supervisor: SHEEBA MUSTAFA ([phone])[facility]Yam[facility] ([facility])[address] [place] [address] MCV (RBC) [Entitic vol] 87.3 fL Normal 77.0-99.0 S [facility] Comment on above: Performed By: #### L [id number], [id number] ####[employer] Supervisor: SHEEBA MUSTAFA ([phone])[facility]THYamile[facility] ([facility])[address] [place] [address] [place] NRBC 0.0 /100 WBCs Normal 0.0-2.0 [facility] Comment on above: Performed By: #### L [id number], [id number] ####[employer] Supervisor: SHEEBA MUSTAFA ([phone])[facility] ([facility])[address] [place] [address] Platelet mean volume (Bld) [Entitic vol] 9.2 fL Normal 9.0-12.7 [facility] Comment on above: Result Comment: MPV is a calculated measurement using platelet volume ratio Performed By: #### L [id number], [id number] ####[employer] Supervisor: SHEEBA MUSTAFA ([phone])[facility] ([facility])[address] [place] [address] Platelets (Bld) [#/Vol] 271 10*3/uL Normal 140-440 [facility] Comment on above: Performed By: #### L [id number], [id number] ####[employer] Supervisor: SHEEBA MUSTAFA ([phone])[facility]THYamile[facility] [employer] [facility] ([facility])[address] [place] [address] [place] RBC (Bld) [#/Vol] 4.66 10*6/uL Normal 3.80-5.20 [facility] Comment on above: Performed By: #### Albert [id number], [id number] ####[employer] Supervisor: SHEEBA MUSTAFA ([phone])[facility]Yam[facility] ([facility])[address] [place] [address] [place] WBC (Bld) [#/Vol] 6.2 10*3/uL Normal 3.6-10.7 [facility] Comment on above: Performed By: #### L [id number], [id number] ####[employer] Supervisor: SHEEBA MUSTAFA ([phone])[facility]Yam[facility] ([facility])[address] [place] [address] COMPLETE URINALYSIS WITH REF MAGNOLIA TO CULTUREon 01-06-2025 AMORPHOUS PHOSPHATES (#/HPF) IN URINE Few Abnormal Negative [facility] Comment on above: Performed By: #### L [id number] ####[employer] Supervisor: SHEEBA MUSTAFA ([phone])[facility]Yam[facility] ([facility])[address] [place] [address] [place] BACTERIA (#/HPF) IN URINE Moderate Abnormal Negative [facility] Comment on above: Performed By: #### L [id number] ####[employer] Supervisor: SHEEBA MUSTAFA ([phone])[facility]A [facility] ([facility])[address] [place] [address] [place] BILIRUBIN, TOTAL PRESENCE IN URINE Negative Normal Negative [facility] Comment on above: Performed By: #### L [id number] ####[employer] Supervisor: SHEEBA MUSTAFA ([phone])[facility] ([facility])[address] [place] [address] [place] Clarity (U) Clear Normal Clear [facility] Comment on above: Performed By: #### L [id number] ####[employer] Supervisor: SHEEBA MUSTAFA ([phone])[facility] ([facility])[address] Color (U) Yellow Normal Lt. Yellow [facility] Comment on above: Performed By: #### L [id number] ####[employer] Supervisor: SHEEBA MUSTAFA ([phone])[facility] ([facility])[address] [place] [address] [place] GLUCOSE (MG/DL) IN URINE Normal Normal Normal (<70 ) [facility] Comment on above: Performed By: #### L [id number] ####[employer] Supervisor: SHEEBA MUSTAFA ([phone])[facility] ([facility])[address] [place] [address] [place] HEMOGLOBIN PRESENCE IN URINE 0.06 mg/dL Abnormal Negative [facility] Comment on above: Performed By: #### L [id number] ####[employer] Supervisor: SHEEBA MUSTAFA ([phone])[facility] ([facility])[address] [place] [address] [place] Ketones Ql (U) Negative Normal Negative [facility] Comment on above: Performed By: #### L [id number] ####[employer] Supervisor: SHEEBA MUSTAFA ([phone])[facility] ([facility])[address] [place] [address] [place] LEUKOCYTE ESTERASE PRESENCE IN URINE BY TEST STRIP 75 Cathy/uL Abnormal Negative [facility] Comment on above: Performed By: #### L [id number] ####[employer] Supervisor: SHEEBA MUSTAFA ([phone])[facility]Yam[facility] ([facility])[address] [place] [address] [place] MUCUS (#/LPF) IN URINE SEDIMENT Negative Normal Negative [facility] Comment on above: Performed By: #### L [id number] ####[employer] Supervisor: SHEEBA MUSTAFA ([phone])[facility]Yam[facility] ([facility])[address] [place] [address] [place] NITRITE PRESENCE IN URINE Negative Normal Negative [facility] Comment on above: Performed By: #### L [id number] ####[employer] Supervisor: SHEEBA MUSTAFA ([phone])[facility]am[facility] ([facility])[address] [place] [address] [place] pH (U) 7.0 [pH] Normal 5.0-8.0 [facility] Comment on above: Performed By: #### L [id number] ####[employer] Supervisor: SHEEBA MUSTAFA ([phone])[facility]am[facility] ([facility])[address] [place] [address] [place] Protein (U) [Mass/Vol] Negative Normal Negative [facility] Comment on above: Performed By: #### L [id number] ####[employer] Supervisor: SHEEBA MUSTAFA ([phone])[facility]am[facility] ([facility])[address] [place] [address] [place] RBC (#/HPF) IN URINE SEDIMENT 0-2 Normal 0-2 [facility] Comment on above: Performed By: #### L [id number] ####[employer] Supervisor: SHEEBA MUSTAFA ([phone])[facility]am[facility] ([facility])[address] [place] [address] Specific gravity (U) [Rel density] 1.013 Normal 1.005-1.030 [facility] Comment on above: Result Comment: HUSSAIN Bhatt COMMENTS:A specimen with <=10 WBC is not consistent with inflammation. This specimen will not reflex to a urine culture. Performed By: #### L [id number] ####[employer] Supervisor: SHEEBA MUSTAFA ([phone])[facility]Yam[facility] [employer] [facility] ([facility])[address] [place] [address] Specimen volume (U) 12 mL Normal [facility] Comment on above: Performed By: #### L [id number] ####[employer] Supervisor: SHEEBA MUSTAFA ([phone])[facility] [employer] [facility] ([facility])[address] [place] [address] SQUAMOUS EPITHELIAL CELLS (#/HPF) IN URINE SEDIMENT 3-5 Normal 3-5 [facility] Comment on above: Performed By: #### L [id number] ####[employer] Supervisor: SHEEBA MUSTAFA ([phone])[facility] [employer] [facility] ([facility])[address] [place] [address] UROBILINOGEN (MG/DL) IN URINE Normal Normal Normal (0-1) [facility] Comment on above: Performed By: #### L [id number] ####[employer] Supervisor: SHEEBA MUSTAFA ([phone])[facility] [employer] [facility] ([facility])[address] [place] [address] WBC (LEUKOCYTE) (#/HPF) IN URINE SEDIMENT 3-5 Normal 0-5 [facility] Comment on above: Performed By: #### L [id number] ####[employer] Supervisor: SHEEBA MUSTAFA ([phone])[facility]THY[facility] ARIZMENDI RITTMAN (SWRLAB)[address] [place] [address] COMPREHENSIVE METABOLIC PANE Hua 01-06-2025 Albumin [Mass/Vol] 3.3 g/dL Low 3.4-4.8 [facility] Comment on above: Performed By: #### L [id number], LAB17, LAB99 ####[employer] Supervisor: SHEEBA MUSTAFA ([phone])[facility]THYam[facility] [employer] RITTMAN (SWRLAB)[address] [place] [address] [place] ALP [Catalytic activity/Vol] 70 U/L Normal 40-150 [facility] Comment on above: Performed By: #### L AB129, LAB17, LAB99 ####[employer] Supervisor: SHEEBA MUSTAFA ([phone])[facility] [facility] (SWRLAB)[address] [place] [address] [place] ALT [Catalytic activity/Vol] 24 U/L Normal <30 [facility] Comment on above: Performed By: #### L AB129, LAB17, LAB99 ####[employer] Supervisor: SHEEBA MUSTAFA ([phone])[facility]Yam[facility] (SWRLAB)[address] Anion gap [Moles/Vol] 8 mmol/L Normal 3-13 [facility] Comment on above: Performed By: #### Albert AB129, LAB17, LAB99 ####[employer] Supervisor: SHEEBA MUSTAFA ([phone])[facility] (SWRLAB)[address] [place] [address] [place] AST [Catalytic activity/Vol] 31 U/L Normal <34 [facility] Comment on above: Performed By: #### L AB129, LAB17, LAB99 ####[employer] Supervisor: SHEEBA MUSTAFA ([phone])[facility]Yam[facility] (SWRLAB)[address] [place] [address] [place] Bilirubin [Mass/Vol] 0.6 mg/dL Normal <1.2 [facility] Comment on above: Performed By: #### L AB129, LAB17, LAB99 ####[employer] Supervisor: SHEEBA MUSTAFA ([phone])[facility]Yam[facility] [place] (SWRLAB)[address] [place] [address] [place] Calcium [Mass/Vol] 9.0 mg/dL Normal 8.8-10.0 [facility] Comment on above: Performed By: #### L AB129, LAB17, LAB99 ####[employer] Supervisor: SHEEBA MUSTAFA ([phone])[facility] [place] (SWRLAB)[address] [place] [address] [place] Chloride [Moles/Vol] 105 mmol/L Normal 98-107 [facility] Comment on above: Performed By: #### L AB129, LAB17, LAB99 ####[employer] Supervisor: SHEEBA MUSTAFA ([phone])[facility] [place] (SWRLAB)[address] [place] [address] [place] CO2 [Moles/Vol] 23 mmol/L Normal 23-31 [facility] Comment on above: Performed By: #### L AB129, LAB17, LAB99 ####[employer] Supervisor: SHEEBA MUSTAFA ([phone])[facility] [place] [address] (SWRL[address] [place] [address] [place] Creatinine [Mass/Vol] 1.02 mg/dL Normal 0.57-1.11 [facility] Comment on above: Performed By: #### L AB129, LAB17, LAB99 ####[employer] Supervisor: SHEEBA MUSTAFA ([phone])[facility]Yam[facility]t [place] (SWRLAB)[address] [place] [address] [place] GLOMERULAR FILTRATION RATE ML/MIN/1.73 SQ M.PREDICTED 55.0 mL/min/1.73m*2 Low >60.0 [facility] Comment on above: Result Comment: Calc ulation based on the Chronic Kidney Disease Epidemiology Collaboration (CKD-EPI) equation refit without adjustment for race Performed By: #### L AB129, LAB17, LAB99 ####[employer] Supervisor: SHEEBA MUSTAFA ([phone])[facility] [place] (SWRLAB)[address] [place] [address] [place] Glucose [Mass/Vol] 108 mg/dL Normal 82-115 [facility] Comment on above: Performed By: #### L AB129, LAB17, LAB99 ####[employer] Supervisor: SHEEBA MUSTAFA ([phone])[facility]am[facility] [place] (SWRLAB)[address] [place] [address] [place] Potassium [Moles/Vol] 3.9 mmol/L Normal 3.5-5.1 [facility] Comment on above: Result Comment: [facility] potassium values may be up to 0.5 mmol/L lower than serum values. Performed By: #### L AB129, LAB17, LAB99 ####[employer] Supervisor: SHEEBA MUSTAFA ([phone])[facility]Yam[facility]t [place] (SWRLAB)[address] [place] [address] Protein [Mass/Vol] 6.9 g/dL Normal 6.4-8.3 [facility] Comment on above: Performed By: #### L AB129, LAB17, LAB99 ####[employer] Supervisor: SHEEBA MUSTAFA ([phone])[facility]Yam[facility]t [place] (SWRLAB)[address] [place] [address] Sodium [Moles/Vol] 136 mmol/L Normal 136-145 [facility] Comment on above: Performed By: #### L AB129, LAB17, LAB99 ####[employer] Supervisor: SHEEBA MUSTAFA ([phone])[facility]A [place] (SWRLAB)[address] [place] [address] Urea nitrogen [Mass/Vol] 25 mg/dL High 9-23 [facility] Comment on above: Performed By: #### L AB129, LAB17, LAB99 ####[employer] Supervisor: SHEEBA MUSTAFA ([phone])[facility]am[facility] [place] (SWRLAB)[address] [place] [address] CT ABDOMEN PELVIS W CONTRAST on 01-06-2025 CT ABDOMEN PELVIS W CONTRAST Normal [facility] CT Abdomen and Pelvis W cont rast Susan 01-06-2025 1. 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 2. Fatty liver 3. Sigmoid diverticulosis Report Dictated on Electronically Signed By: Dion Valenzuela MD Electronically Signed Date/Time: 01/06/2025 3:00 AM [facility] [place] [facility] Patient Name: SOMMER FRIEDMAN : 1940 Exam Date/Time: 01/06/2025 01:53 Procedure: CT ABDOMEN PELVIS W CONTRAST Ordering Provider: TRINIDAD KATHRYN Reason For Exam: Diffuse abdominal tenderness, hyperactive bowel sounds CT ABDOMEN AND PELVIS WITH CONTRAST CLINICAL INDICATION: Diffuse abdominal tenderness, hyperactive bowel sounds. TECHNIQUE: Transaxial sequence through the abdomen and pelvis with 3 mm reconstruction with dynamic intravenous infusion of contrast media. No oral contrast was administered. Coronal and sagittal reconstructions included. Dose reduction was employed with automated exposure control. COMPARISON: 04/10/2024 FINDINGS: Exam quality: Examination is suboptimal for evaluation of the gastrointestinal tract due to lack of oral contrast Chest base: Cardiomegaly. No pleural fluid collection. Liver: Generalized diminished attenuation as compared to the spleen, corresponding to diffuse fatty infiltration. There is hepatic passive congestion of contrast. No focal lesion. Biliary tree: Normal caliber. Spleen: Normal. Adrenals: Normal. Pancreas: Normal. Kidneys: Symmetric contrast enhancement without hydronephrosis. No focal lesion. Free fluid: None. Retroperitoneal/mese nteric lymphadenopathy: None. Aorta: Dense atherosclerotic calcification with diminutive caliber of the distal aorta measuring as little as 0.8 cm. There is patent flow within the diminutive left iliac artery branches extending to the common femoral artery. There is absent flow within the right common iliac artery with reconstitution near the iliac bifurcation. Bowel: There is no bowel dilatation. Sigmoid diverticulosis is noted. Retained feces are noted. There is no free air. Abdominal wall: Normal. Pelvic organs/viscera: No mass identified. Pelvic lymphadenopathy: None. Osseous structures: Metallic fixation noted within the right hip. There is severe compression fracture deformity of the L1 vertebral body involving the superior endplate, unchanged from 04/10/2024. Degenerative change also noted at L5-S1. [facility] Dion Valenzuela MD - 01/06/2025 Patient Name: SOMMER FRIEDMAN : 1940 Exam Date/Time: 01/06/2025 01:53 Procedure: CT ABDOMEN PELVIS W CONTRAST Ordering Provider: TRINIDAD KATHRYN Reason For Exam: Diffuse abdominal tenderness, hyperactive bowel sounds CT ABDOMEN AND PELVIS WITH CONTRAST CLINICAL INDICATION: Diffuse abdominal tenderness, hyperactive bowel sounds. TECHNIQUE: Transaxial sequence through the abdomen and pelvis with 3 mm reconstruction with dynamic intravenous infusion of contrast media. No oral contrast was administered. Coronal and sagittal reconstructions included. Dose reduction was employed with automated exposure control. COMPARISON: 04/10/2024 FINDINGS: Exam quality: Examination is suboptimal for evaluation of the gastrointestinal tract due to lack of oral contrast Chest base: Cardiomegaly. No pleural fluid collection. Liver: Generalized diminished attenuation as compared to the spleen, corresponding to diffuse fatty infiltration. There is hepatic passive congestion of contrast. No focal lesion. Biliary tree: Normal caliber. Spleen: Normal. Adrenals: Normal. Pancreas: Normal. Kidneys: Symmetric contrast enhancement without hydronephrosis. No focal lesion. Free fluid: None. Retroperitoneal/mese nteric lymphadenopathy: None. Aorta: Dense atherosclerotic calcification with diminutive caliber of the distal aorta measuring as little as 0.8 cm. There is patent flow within the diminutive left iliac artery branches extending to the common femoral artery. There is absent flow within the right common iliac artery with reconstitution near the iliac bifurcation. Bowel: There is no bowel dilatation. Sigmoid diverticulosis is noted. Retained feces are noted. There is no free air. Abdominal wall: Normal. Pelvic organs/viscera: No mass identified. Pelvic lymphadenopathy: None. Osseous structures: Metallic fixation noted within the right hip. There is severe compression fracture deformity of the L1 vertebral body involving the superior endplate, unchanged from 04/10/2024. Degenerative change also noted at L5-S1. IMPRESSION: 1. 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 2. Fatty liver 3. Sigmoid diverticulosis Report Dictated on Electronically Signed By: Dion Valenzuela MD Electronically Signed Date/Time: 01/06/2025 3:00 AM EDT [facility] [email or web address] Radiology Study observation (narrative) [facility] alth CT Abdomen and Pelvis W cont rast IVOrdered By: Dion Valenzuela on 01-06-2025 [email or web address] Work Phone: Comprehensive metabolic 1998 panelon 01-06-2025 Albumin [Mass/Vol] 3.3 g/dL Low 3.4 - 4.8 g/dL [facility] ALP [Catalytic activity/Vol] 70 U/L 40 - 150 U/L [facility] ALT [Catalytic activity/Vol] 24 U/L NINF - 30 U/L [facility] Anion gap [Moles/Vol] 8 mmol/L 3 - 13 mmol/L [facility] AST [Catalytic activity/Vol] 31 U/L NINF - 34 U/L [facility] Bilirubin [Mass/Vol] 0.6 mg/dL NINF - 1.2 mg/dL [facility] Calcium [Mass/Vol] 9 mg/dL 8.8 - 10. 0 mg/dL [facility] Chloride [Moles/Vol] 105 mmol/L 98 - 10 7 mmol/L [facility] CO2 [Moles/Vol] 23 mmol/L 23 - 31 mmol/L [facility] Creatinine [Mass/Vol] 1.02 mg/dL 0.57 - 1.11 mg/dL [facility] GFR/1.73 sq M.predicted (S/P/Bld) [Vol rate/Area] 55 mL/min Low - PINF [facility] Comment on above: Calculation based on the Chronic Kidney Disease Epidemiology Collaboration (CKD-EPI) equation refit without adjustment for race Glucose [Mass/Vol] 108 mg/dL 82 - 115 mg/dL [facility] Potassium [Moles/Vol] 3.9 mmol/L 3.5 - 5.1 mmol/L [facility] Comment on above: Plasma potassium morro ues may be up to 0.5 mmol/L lower than serum values. Protein [Mass/Vol] 6.9 g/dL 6.4 - 8.3 g/dL [facility] Sodium [Moles/Vol] 136 mmol/L 136 - 145 mmol/L [facility] Urea nitrogen [Mass/Vol] 25 mg/dL High 9 - 23 mg/d L [facility] Consulton 01-06-2025 Consult Normal [facility] ED Nursing Noteon 01-06-2025 ED Nursing Note Report called to BETTY Banda RN Normal [facility] LACTIC ACID WITH REFLEXon Lactate [Moles/Vol] 0.9 mmol/L Normal 0.5-2.2 [facility] Comment on above: Performed By: #### L [id number] ####[employer] Supervisor: SHEEBA MUSTAFA ([phone])[facility]Yam[facility] [address]AN (SWRLAB)[address] [place] [address] [place] LIPASEon 01-06-2025 Lipase [Catalytic activity/Vol] 112 U/L High <55 [facility] Comment on above: Performed By: #### L AB129, LAB17, LAB99 ####[employer] Supervisor: SHEEBA MUSTAFA ([phone])[facility]Yam[facility]I [facility]AN (SWRLAB)[address] Laboratory - Chemistry and C hemistry - challengeon 01-06-2025 TSH Qn 2.81 m[IU]/L [facility] Lactate [Moles/Vol] 0.9 mmol/L 0.5 - 2. 2 mmol/L [facility] Lipase [Catalytic activity/Vol] 112 U/L High NINF - 55 U/L [facility] MANUAL DIFFERENTIALon 2024 ANISOCYTOSIS PRESENCE IN BLOOD BY LIGHT MICROSCOPY Slight Abnormal (none) [facility] Comment on above: Performed By: #### L [id number], [id number] ####[employer] Supervisor: SHEEBA MUSTAFA ([phone])[facility]Yam[facility]t [facility] (SWRLAB)[address] [place] [address] [place] CELLS COUNTED TOTAL (#) IN BLOOD 100 Normal [facility] Comment on above: Performed By: #### L [id number], [id number] ####[employer] Supervisor: SHEEBA MUSTAFA ([phone])[facility]am[facility] (SWRLAB)[address] [place] [address] [place] EOSINOPHILS (10*3/UL) IN BLOOD BY MANUAL COUNT 0.1 10*3/uL Normal 0.0-0.5 [facility] Comment on above: Performed By: #### L [id number], [id number] ####[employer] Supervisor: SHEEBA MUSTAFA ([phone])[facility]Yam[facility] [address] (SWRLAB)[address] [place] [address] [place] EOSINOPHILS TOTAL PER COUNTED LEUKOCYTES BY MANUAL COUNT 1 Normal 0-1 [facility] Comment on above: Performed By: #### L [id number], [id number] ####[employer] Supervisor: SHEEBA MUSTAFA ([phone])[facility]A [place]RA R[address]TMAN (SWRLAB)[address] [place] [address] [place] EOSINOPHILS/100 LEUKOCYTES IN BLOOD BY MANUAL COUNT 1 % Normal 0-6 [facility] Comment on above: Performed By: #### L [id number], [id number] ####[employer] Supervisor: SHEEBA MUSTAFA ([phone])[facility] [place] (SWRLAB)[address] [place] [address] [place] LEUKOCYTES (10*3/UL) NUCLEATED ERYTHROCYTE ADJUST 6.2 10*3/uL Normal 3.6-10.7 [facility] Comment on above: Performed By: #### L [id number], [id number] ####[employer] Supervisor: SHEEAB MUSTAFA ([phone])[facility] [place] (SWRLAB)[address] [place], [place] [address] [place] LYMPHOCYTES (10*3/UL) IN BLOOD BY MANUAL COUNT 2.8 10*3/uL Normal 1.0-4.3 [facility] Comment on above: Performed By: #### L [id number], [id number] ####[employer] Supervisor: SHEEBA MUSTAFA ([phone])[facility] [place] (SWRLAB)[address] [place] [address] [place] LYMPHOCYTES TOTAL PER COUNTED LEUKOCYTES BY MANUAL COUNT 45 Normal [facility] Comment on above: Performed By: #### L [id number], [id number] ####[employer] Supervisor: SHEEBA MUSTAFA ([phone])[facility] [place] (SWRLAB)[address] [place] [address] [place] LYMPHOCYTES VARIANT/100 LEUKOCYTES IN BLOOD 2 % High <=0 [facility] Comment on above: Performed By: #### L [id number], [id number] ####[employer] Supervisor: SHEEBA MUSTAFA ([phone])[facility] [place] (SWRLAB)[address] [place] [address] [place] LYMPHOCYTES/100 LEUKOCYTES IN BLOOD BY MANUAL COUNT 45 % Normal 15-45 [facility] Comment on above: Performed By: #### L [id number], [id number] ####[employer] Supervisor: SHEEBA MUSTAFA ([phone])[facility] [place] (SWRLAB)[address] [place] [address] [place] MONOCYTES (10*3/UL) IN BLOOD BY MANUAL COUNT 0.6 10*3/uL Normal 0.0-0.9 [facility] Comment on above: Performed By: #### L [id number], [id number] ####[employer] Supervisor: SHEEBA MUSTAFA ([phone])[facility] [place] (SWRLAB)[address] [place] [address] [place] MONOCYTES TOTAL PER COUNTED LEUKOCYTES BY MANUAL COUNT 9 Normal [facility] Comment on above: Performed By: #### L [id number], [id number] ####[employer] Supervisor: SHEEBA MUSTAFA ([phone])[facility] [place] (SWRLAB)[address] [place] [address] [place] MONOCYTES/100 LEUKOCYTES IN BLOOD BY MANUAL COUNT 9 % Normal 5-13 [facility] Comment on above: Performed By: #### L [id number], [id number] ####[employer] Supervisor: SHEEBA MUSTAFA ([phone])[facility] [place] (SWRLAB)[address] [place] [address] [place] NEUTROPHILS (SEGS+BANDS) (10*3/UL) BY MANUAL COUNT 2.7 10*3/uL Normal 1.8-7.0 [facility] Comment on above: Performed By: #### L [id number], [id number] ####[employer] Supervisor: SHEEBA MUSTAFA ([phone])[facility] [place] (SWRLAB)[address] [place] [address] [place] NEUTROPHILS TOTAL PER COUNTED LEUKOCYTES BY MANUAL COUNT 43 Normal [facility] Comment on above: Performed By: #### L [id number], [id number] ####[employer] Supervisor: SHEEBA MUSTAFA ([phone])[facility] [place] (SWRLAB)[address] PLATELETS GIANT PRESENCE IN BLOOD BY LIGHT MICROSCOPY Slight Abnormal (none) [facility] Comment on above: Performed By: #### L [id number], [id number] ####[employer] Supervisor: SHEEBA MUSTAFA ([phone])[facility] [place] (SWRLAB)[address] [place] [address] [place] SEGEMENTED NEUTROPHILS/100 LEUKOCYTES BY MANUAL COUNT 43 % Normal 38-82 [facility] Comment on above: Performed By: #### L [id number], [id number] ####[employer] Supervisor: SHEEBA MUSTAFA ([phone])[facility] [place] (SWRLAB)[address] [place] [address] TOXIC GRANULES PRESENCE IN BLOOD BY LIGHT MICROSCOPY (PRESENT) Present Abnormal (none) [facility] Comment on above: Performed By: #### L [id number], [id number] ####[employer] Supervisor: SHEEBA MUSTAFA ([phone])[facility]Yam[facility]t ARIZM[facility]I RITTMAN (SWRLAB)[address] [place] [address] VARIANT LYMPHOCYTES (10*3/UL) IN BLOOD BY MANUAL COUNT 0.1 10*3/uL High <=0.0 [facility] Comment on above: Performed By: #### L [id number], [id number] ####[employer] Supervisor: SHEEBA MUSTAFA ([phone])[facility] [place] (SWRLAB)[address] [place] [address] VARIANT LYMPHOCYTES TOTAL PER COUNTED LEUKOCYTES BY MANUAL COUNT 2 Normal [facility] Comment on above: Performed By: #### L [id number], [id number] ####[employer] Supervisor: SHEEBA MUSTAFA ([phone])[facility]Yam[facility]t NIXMITRA RITTMAN (SWRLAB)[address] [place] [address] Manual differential performe d Ql (Bld)on 01-06-2025 Anisocytosis Ql (Bld) Slight Abnormal (none) [facility] Atypical Lymphocytes Manual 2 [facility] Cells Counted Total (Bld) [#] 100 {cells} [facility] Eosinophils (Bld) [#/Vol] 0.1 10*3/uL 0. 0 - 0.5 10*3/uL [facility] Eosinophils Manual 1 0 - 1 [facility] Eosinophils/100 WBC (Bld) 1 % 0 - 6 % [facility] Giant platelets LM Ql (Bld) Slight Abnormal (none) [facility] Lymphocytes (Bld) [#/Vol] 2.8 10*3/uL 1. 0 - 4.3 10*3/uL [facility] Lymphocytes Manual 45 [facility] Lymphocytes/100 WBC (Bld) 45 % 15 - 45 % [facility] Monocytes (Bld) [#/Vol] 0.6 10*3/uL 0.0 - 0.9 10*3/uL [facility] Monocytes Manual 9 [facility]th Monocytes/100 WBC (Bld) 9 % 5 - 13 % [facility] Neutrophils (Bld) [#/Vol] 2.7 10*3/uL 1. 8 - 7.0 10*3/uL [facility] Neutrophils Manual 43 [facility] Segmented neutrophils/100 WBC (Bld) 43 % 38 - 82 % [facility] Toxic granules LM Ql (Bld) Present Abnormal (none) [facility] Variant lymphocytes (Bld) [#/Vol] 0.1 10*3/uL High NINF - 0.0 10*3/uL [facility] Variant lymphocytes/100 WBC (Bld) 2 % High NINF - 0 % [facility] WBC corrected for nucl RBC (Bld) [#/Vol] 6.2 10*3/uL 3.6 - 10.7 10*3/uL [facility] No Panel InformationOrdered By: Travis Daily on 01-06-2025 Interpretation and review of laboratory results Abnormal [facility] No Panel Informationon 01-06 Interpretation and review of laboratory results Normal [facility] Interpretation and review of laboratory results Abnormal [facility] THYROID STIMULATING HORMONEo n 01-06-2025 THYROID STIMULATING HORMONE 2.81 uIU/mL Normal 0.35-4.94 [facility] Comment on above: Performed By: #### L [id number], LAB17, LAB99 ####[employer] Supervisor: SHEEBA MUSTAFA ([phone])[facility] YAO (SWRLAB)[address] TSH Qnon 01-06-2025 Interpretation and review of laboratory results Normal [facility] URINE CULTUREon 01-06-2025 Bacteria identified Cx Nom (U) Normal [facility] Comment on above: Performed By: #### L [id number] ####[employer] Supervisor: SHEEBA MUSTAFA ([phone])[facility] ([facility])[address] [place] [address] Urinalysis complete panel (U )on 01-06-2025 Amorphous Phosphates, Urine Few Abnormal Negative /HPF [facility] Bacteria LM.HPF (Urine sed) [#/Area] Moderate Abnormal Negative /HPF [facility] Bilirubin Ql (U) Negative Negative mg/dL [facility] Clarity (U) Clear Clear [facility] Color (U) Yellow Lt. Yellow [facility] Epithelial cells.squamous LM.HPF (Urine sed) [#/Area] 3-5 [facility] Glucose Ql (U) Normal Normal (<70) mg/dL [facility] Hemoglobin Ql (U) 0.06 mg/dL Abnormal Negative [facility]alth Interpretation and review of laboratory results Abnormal [facility] Ketones (U) [Mass/Vol] Negative Negat jaciel mg/dL [facility] Leukocyte esterase Test strip Ql (U) 75 Abnormal Negative Cathy/uL [facility] Mucus LM.HPF (Urine sed) [#/Area] Negative Negative /LPF [facility] Nitrite Ql (U) Negative Negative [facility] pH (U) 7.0 [pH] 5.0 - 8.0 pH [facility] Protein (U) [Mass/Vol] Negative Negat jaciel mg/dL [facility] RBC LM.HPF (Urine sed) [#/Area] 0-2 [facility] Specific gravity (U) [Rel density] 1.013 1.005 - 1.030 [facility] Urobilinogen (U) [Mass/Vol] Normal Normal (0-1) mg/dL [facility] Volume, Urine 12 mL [facility] h WBC LM.HPF (Urine sed) [#/Area] 3-5 [facility] A specimen with <=10 WBC is not consistent with inflammation. This specimen will not reflex to a urine culture. [facility] ED Nursing Noteon 01-05-2025 ED Nursing Note Normal [facility] ED Provider Noteon ED Provider Note Normal [facility] Anion gap in Serum or Plasma Ordered By: Kathi Juarez on 12-30-2024 Anion gap [Moles/Vol] 13 mmol/L 5-15 [facility] BUN/creatinine ratioOrdered By: Kathi Juarez on 12-30-2024 Urea nitrogen/Creatinine [Mass ratio] 22.1 mg/mg High 10-20 [facility] Carbon dioxide, total [Moles /volume] in Central venous bloodOrdered By: Kathi Juarez on 12-30-2024 CO2 [Moles/Vol] 19.3 mmol/L Low 21.0-32.0 [facility] Chloride assayOrdered By: Emir Juarez on 12-30-2024 Chloride [Moles/Vol] 102 mmol/L 98-108 [facility] Glomerular filtration rate ( GFR) estimation/1.73 sq m using serum, plasma, or whole bOrdered By: Kathi Juarez on 12-30-2024 GFR/1.73 sq M.predicted among non-blacks MDRD (S/P/Bld) [Vol rate/Area] 55 mL/min/{1.73_m2} Low >60 [facility] Comment on above: mL/min/1.73m2 CKD-EP I Creatinine Equation (2020) Potassium measurement (mass/ volume)Ordered By: Kathi Juarez on 12-30-2024 Potassium (Unsp spec) [Mass/Vol] 4.0 mmol/L 3.3-5.1 [facility] Serum creatinine measurement (mass/volume)Ordered By: Kathi Juarez on 12-30-2024 Creatinine [Mass/Vol] 1.02 mg/dL 0.70-1.20 [facility] Serum glucose measurement (m ass/volume)Ordered By: Kathi Juarez on 12-30-2024 Glucose [Mass/Vol] 101 mg/dL High 70-99 [facility] Serum or plasma calcium adam urement (mass/volume)Ordered By: Kathi Juarez on 12-30-2024 Calcium [Mass/Vol] 9.6 mg/dL 7.6-11.0 [facility] Serum or plasma urea nitroge n measurement (mass/volume)Ordered By: Kathi Juarez on 12-30-2024 Urea nitrogen [Mass/Vol] 23 mg/dL High 4-19 [facility] Sodium levelOrdered By: Fuentes Juarez on 12-30-2024 Sodium [Moles/Vol] 135 mmol/L 133-145 [facility] Anion gap in Serum or Plasma Ordered By: Ktahi Juarez on 12-23-2024 Anion gap [Moles/Vol] 12 mmol/L 5-15 [facility] BUN/creatinine ratioOrdered By: Kathi Juarez on 12-23-2024 Urea nitrogen/Creatinine [Mass ratio] 19.6 mg/mg 10-20 [facility] Carbon dioxide, total [Moles /volume] in Central venous bloodOrdered By: Kathi Juarez on 12-23-2024 CO2 [Moles/Vol] 21.1 mmol/L 21.0-32.0 [facility] Chloride assayOrdered By: Emir Juarez on 12-23-2024 Chloride [Moles/Vol] 102 mmol/L 98-108 [facility] Glomerular filtration rate ( GFR) estimation/1.73 sq m using serum, plasma, or whole bOrdered By: Kathi Juarez on 12-23-2024 GFR/1.73 sq M.predicted among non-blacks MDRD (S/P/Bld) [Vol rate/Area] 52 mL/min/{1.73_m2} Low >60 [facility] Comment on above: mL/min/1.73m2 CKD-EP I Creatinine Equation (2020) Natriuretic peptide.B prohor pina N-Terminal [Mass/volume] in Serum or PlasmaOrdered By: Kathi Juarez on 12-23-2024 Natriuretic peptide.B prohormone N-Terminal [Mass/Vol] 24584 pg/mL High <1800 [facility] Comment on above: Heart Failure Unlike ly: < 300 pg/mLHeart Failure Likely< 50 Years: > 450 pg/mL50-75 Years: > 900 pg/mL>75 Years: > 1800 pg/mL Potassium measurement (mass/ volume)Ordered By: Kathi Juarez on 12-23-2024 Potassium (Unsp spec) [Mass/Vol] 4.1 mmol/L 3.3-5.1 [facility] Serum creatinine measurement (mass/volume)Ordered By: Kathi Juarez on 12-23-2024 Creatinine [Mass/Vol] 1.06 mg/dL 0.70-1.20 [facility] Serum glucose measurement (m ass/volume)Ordered By: Kathi Juarez on 12-23-2024 Glucose [Mass/Vol] 111 mg/dL High 70-99 [facility] Serum or plasma calcium adam urement (mass/volume)Ordered By: Kathi Juarez on 12-23-2024 Calcium [Mass/Vol] 9.8 mg/dL 7.6-11.0 [facility] Serum or plasma urea nitroge n measurement (mass/volume)Ordered By: Kathi Juarez on 12-23-2024 Urea nitrogen [Mass/Vol] 21 mg/dL High 4-19 [facility] Sodium levelOrdered By: Fuentes Juarez on 12-23-2024 Sodium [Moles/Vol] 135 mmol/L 133-145 [facility] Anion gap in Serum or Plasma Ordered By: Kathi Juarez on 12-16-2024 Anion gap [Moles/Vol] 11 mmol/L 5-15 [facility] BUN/creatinine ratioOrdered By: Kathi Juarez on 12-16-2024 Urea nitrogen/Creatinine [Mass ratio] 17.5 mg/mg 10-20 [facility] Bilirubin Test strip Ql (U)O rdered By: Kathi Juarez on 12-16-2024 Bilirubin Ql (U) Negative Negative [facility] Bilirubin, totalOrdered By: Kathi Juarez on 12-16-2024 Bilirubin [Mass/Vol] 0.96 mg/dL 0.00-1.30 [facility] Carbon dioxide, total [Moles /volume] in Central venous bloodOrdered By: Kathi Juarez on 12-16-2024 CO2 [Moles/Vol] 24.7 mmol/L 21.0-32.0 [facility] Chloride assayOrdered By: Emir Juarez on 12-16-2024 Chloride [Moles/Vol] 102 mmol/L 98-108 [facility] Erythrocyte distribution wid th ratioOrdered By: Kathi Juarez on 12-16-2024 Erythrocyte distribution width (RBC) [Ratio] 14.6 % 11.6-14.6 [facility] Erythrocyte distribution wid th standard deviationOrdered By: Kathi Juarez on 12-16-2024 Erythrocyte distribution width (RBC) [Ratio] 49.2 fl High 35.1-43.9 [facility] Glomerular filtration rate ( GFR) estimation/1.73 sq m using serum, plasma, or whole bOrdered By: Kathi Juarez on 12-16-2024 GFR/1.73 sq M.predicted among non-blacks MDRD (S/P/Bld) [Vol rate/Area] 64 mL/min/{1.73_m2} >60 [facility] Comment on above: mL/min/1.73m2 CKD-EP I Creatinine Equation (2020) Hematocrit Auto (Bld) [Volum e fraction]Ordered By: Kathi Juarez on 12-16-2024 Hematocrit (Bld) [Volume fraction] 40.1 % 37-47 [facility] Hemoglobin measurementOrdere d By: Kathi Juarez on 12-16-2024 Hemoglobin (Bld) [Mass/Vol] 12.8 g/dL 12.0-15.0 [facility] Ketones Test strip Ql (U)Ord ered By: Kathi Juarez on 12-16-2024 Ketones Ql (U) Negative Negative [facility] Laboratory - Chemistry and C hemistry - challengeOrdered By: Kathi Juarez on 12-16-2024 AST [Catalytic activity/Vol] 29 U/L <32 [facility] MCV (mean corpuscular volume ) determinationOrdered By: Kathi Juarez on 12-16-2024 MCV (RBC) [Entitic vol] 93.7 fL 81-99 [facility] Magnesium measurement (mass/ volume)Ordered By: aKthi Juarez on 12-16-2024 Magnesium (Unsp spec) [Mass/Vol] 2.2 mg/dL 1.5-2.2 [facility] Mean corpuscular hemoglobin (MCH) determinationOrdered By: Kathi Juarez on 12-16-2024 MCH (RBC) [Entitic mass] 29.9 pg 27.0-32.0 [facility] Mean corpuscular hemoglobin concentration (MCHC) determinationOrdered By: Kathi Juarez on 12-16-2024 MCHC (RBC) [Mass/Vol] 31.9 g/dL Low 32-36 [facility] Mean platelet volume determi nationOrdered By: Kathi Juarez on 12-16-2024 Platelet mean volume (Bld) [Entitic vol] 9.5 fL 6.2-12.0 [facility] Microscopic analysis of urin e for red blood cells (RBC)Ordered By: Kathi Juarez on 12-16-2024 Microscopic analysis of urine for red blood cells (RBC) 0-5 SEEN /hpf 0-5 [facility] Mucus LM Ql (Urine sed)Order ed By: Kathi Juarez on 12-16-2024 Mucus Ql (Urine sed) 0 SEEN /hpf [facility] Natriuretic peptide.B prohor pina N-Terminal [Mass/volume] in Serum or PlasmaOrdered By: Kathi Juarez on 12-16-2024 Natriuretic peptide.B prohormone N-Terminal [Mass/Vol] 47244 pg/mL High <1800 [facility] Comment on above: Heart Failure Unlike ly: < 300 pg/mLHeart Failure Likely< 50 Years: > 450 pg/mL50-75 Years: > 900 pg/mL>75 Years: > 1800 pg/mL Nitrite Test strip Ql (U)Ord ered By: Kathi Juarez on 12-16-2024 Nitrite Ql (U) Negative Negative [facility] Platelet countOrdered By: Emir Juarez on 12-16-2024 Platelets (Bld) [#/Vol] 258 10*3/uL 150-450 [facility] Potassium measurement (mass/ volume)Ordered By: Kathi Juarez on 12-16-2024 Potassium (Unsp spec) [Mass/Vol] 3.4 mmol/L 3.3-5.1 [facility] Protein Test strip Ql (U)Ord ered By: Kathi Juarez on 12-16-2024 Protein Ql (U) 30 mg/dl High Negative [facility] RBC Auto (Bld) [#/Vol]Ordere d By: Kathi Juarez on 12-16-2024 RBC (Bld) [#/Vol] 4.28 10*6/uL 4.2-5.4 [facility] Serum creatinine measurement (mass/volume)Ordered By: Kathi Juarez on 12-16-2024 Creatinine [Mass/Vol] 0.90 mg/dL 0.70-1.20 [facility] Serum globulin measurementOr dered By: Kathi Juarez on 12-16-2024 Globulin (S) [Mass/Vol] 3.1 g/dL 2.2-4.2 [facility] Serum glucose measurement (m ass/volume)Ordered By: Kathi Juarez on 12-16-2024 Glucose [Mass/Vol] 110 mg/dL High 70-99 [facility] Serum or plasma alanine jiang otransferase (ALT) measurementOrdered By: Kathi Juarez on 12-16-2024 ALT [Catalytic activity/Vol] 15 U/L <35 [facility] Serum or plasma albumin adam urement (mass/volume)Ordered By: Kathi Juarez on 12-16-2024 Albumin [Mass/Vol] 3.6 g/dL 3.4-4.8 [facility] Serum or plasma albumin/glob ulin mass ratioOrdered By: Kathi Juarez on 12-16-2024 Albumin/Globulin [Mass ratio] 1.2 {ratio} 0.9-2.4 [facility] Serum or plasma alkaline herminio sphatase measurementOrdered By: Kathi Juarez on 12-16-2024 ALP [Catalytic activity/Vol] 72 U/L 35-104 [facility] Serum or plasma calcium adam urement (mass/volume)Ordered By: Kathi Juarez on 12-16-2024 Calcium [Mass/Vol] 9.3 mg/dL 7.6-11.0 [facility] Serum or plasma urea nitroge n measurement (mass/volume)Ordered By: Kathi Juarez on 12-16-2024 Urea nitrogen [Mass/Vol] 16 mg/dL 4-19 [facility] Sodium levelOrdered By: Fuentes Juarez on 12-16-2024 Sodium [Moles/Vol] 138 mmol/L 133-145 [facility] Squamous epithelial cells de tection in urine sediment by light microscopyOrdered By: Kathi Juarez on 12-16-2024 Epithelial cells.squamous LM Ql (Urine sed) 0-5 SEEN /hpf 5-10 [facility] Total proteinOrdered By: Sarthak Juarez on 12-16-2024 Protein [Mass/Vol] 6.6 g/dL 5.9-8.4 [facility] Urine clarityOrdered By: Sarthak Juarez on 12-16-2024 Clarity (U) Cloudy Clear [facility] Urine color determinationOrd ered By: Kathi Juarez on 12-16-2024 Color (U) Yellow Yellow [facility] Urine cultureOrdered By: Sarthak Juarez on 12-16-2024 Bacteria identified Cx Nom (U) ESBL Escherichia coli Abnormal [facility] Urine glucose detectionOrder ed By: Kathi Juarez on 12-16-2024 Glucose Ql (U) Normal mg/dl Normal [facility] Urine leukocyte esterase det ection by dipstickOrdered By: Kathi Juarez on 12-16-2024 Leukocyte esterase Test strip Ql (U) 500 /ul High Negative [facility] Urine pHOrdered By: Kathi lyn on 12-16-2024 pH (U) 6.0 [pH] 5.0 - 8.0 [facility] Urine sediment bacteria coun t by microscopy (number/high power field)Ordered By: Kathi Juarez on 12-16-2024 Bacteria LM.HPF (Urine sed) [#/Area] 4 /[HPF] None Seen [facility] Urine specific gravity measu rementOrdered By: Kathi Juarez on 12-16-2024 Specific gravity (U) [Rel density] 1.020 1.002-1.030 [facility] Urine urobilinogen measureme ntOrdered By: Kathi Juarez on 12-16-2024 Urobilinogen Ql (U) Normal mg/dl Normal [facility] White blood cell (WBC) count Ordered By: Kathi Juarez on 12-16-2024 WBC (Bld) [#/Vol] 7.1 10*3/uL 4.4-11.0 [facility] White blood cell countOrdere d By: Kathi Juarez on 12-16-2024 White blood cell count >100 SEEN /hpf 0-5 [facility] Anion gap in Serum or Plasma Ordered By: Kathi Juarez on 12-04-2024 Anion gap [Moles/Vol] 10 mmol/L 5-15 [facility] BUN/creatinine ratioOrdered By: Kathi Juarez on 12-04-2024 Urea nitrogen/Creatinine [Mass ratio] 17.7 mg/mg 10-20 [facility] Bilirubin, totalOrdered By: Kathi Juarez on 12-04-2024 Bilirubin [Mass/Vol] 0.71 mg/dL 0.00-1.30 [facility] Carbon dioxide, total [Moles /volume] in Central venous bloodOrdered By: Kathi Juarez on 12-04-2024 CO2 [Moles/Vol] 23.9 mmol/L 21.0-32.0 [facility] Chloride assayOrdered By: Emir Juarez on 12-04-2024 Chloride [Moles/Vol] 104 mmol/L 98-108 [facility] Erythrocyte distribution wid th ratioOrdered By: Kathi Juarez on 12-04-2024 Erythrocyte distribution width (RBC) [Ratio] 14.0 % 11.6-14.6 [facility] Erythrocyte distribution wid th standard deviationOrdered By: Kathi Juarez on 12-04-2024 Erythrocyte distribution width (RBC) [Ratio] 47.5 fl High 35.1-43.9 [facility] Glomerular filtration rate ( GFR) estimation/1.73 sq m using serum, plasma, or whole bOrdered By: Kathi Juarez on 12-04-2024 GFR/1.73 sq M.predicted among non-blacks MDRD (S/P/Bld) [Vol rate/Area] 53 mL/min/{1.73_m2} Low >60 [facility] Comment on above: mL/min/1.73m2 CKD-EP I Creatinine Equation (2020) Hematocrit Auto (Bld) [Volum e fraction]Ordered By: Kathi Juarez on 12-04-2024 Hematocrit (Bld) [Volume fraction] 38.0 % 37-47 [facility] Hemoglobin measurementOrdere d By: Kathi Juarez on 12-04-2024 Hemoglobin (Bld) [Mass/Vol] 12.5 g/dL 12.0-15.0 [facility] Laboratory - Chemistry and C hemistry - challengeOrdered By: Kathi Juarez on 12-04-2024 AST [Catalytic activity/Vol] 29 U/L <32 [facility] MCV (mean corpuscular volume ) determinationOrdered By: Kathi Juarez on 12-04-2024 MCV (RBC) [Entitic vol] 92.9 fL 81-99 [facility] Mean corpuscular hemoglobin (MCH) determinationOrdered By: Kathi Juarez on 12-04-2024 MCH (RBC) [Entitic mass] 30.6 pg 27.0-32.0 [facility] Mean corpuscular hemoglobin concentration (MCHC) determinationOrdered By: Kathi Juarez on 12-04-2024 MCHC (RBC) [Mass/Vol] 32.9 g/dL 32-36 [facility] Mean platelet volume determi nationOrdered By: Kathi Juarez on 12-04-2024 Platelet mean volume (Bld) [Entitic vol] 9.2 fL 6.2-12.0 [facility] Platelet countOrdered By: Emir Juarez on 12-04-2024 Platelets (Bld) [#/Vol] 266 10*3/uL 150-450 [facility] Potassium measurement (mass/ volume)Ordered By: Kathi Juarez on 12-04-2024 Potassium (Unsp spec) [Mass/Vol] 3.4 mmol/L 3.3-5.1 [facility] RBC Auto (Bld) [#/Vol]Ordere d By: Kathi Juarez on 12-04-2024 RBC (Bld) [#/Vol] 4.09 10*6/uL Low 4.2-5.4 [facility] Serum creatinine measurement (mass/volume)Ordered By: Kathi Juarez on 12-04-2024 Creatinine [Mass/Vol] 1.05 mg/dL 0.70-1.20 [facility] Serum globulin measurementOr dered By: Kathi Juarez on 12-04-2024 Globulin (S) [Mass/Vol] 3.0 g/dL 2.2-4.2 [facility] Serum glucose measurement (m ass/volume)Ordered By: Kathi Juarez on 12-04-2024 Glucose [Mass/Vol] 112 mg/dL High 70-99 [facility] Serum or plasma alanine jiang otransferase (ALT) measurementOrdered By: Kathi Juarez on 12-04-2024 ALT [Catalytic activity/Vol] 20 U/L <35 [facility] Serum or plasma albumin adam urement (mass/volume)Ordered By: Kathi Juarez on 12-04-2024 Albumin [Mass/Vol] 3.6 g/dL 3.4-4.8 [facility] Serum or plasma albumin/glob ulin mass ratioOrdered By: Kathi Juarez on 12-04-2024 Albumin/Globulin [Mass ratio] 1.2 {ratio} 0.9-2.4 [facility] Serum or plasma alkaline herminio sphatase measurementOrdered By: Kathi Juarez on 12-04-2024 ALP [Catalytic activity/Vol] 74 U/L 35-104 [facility] Serum or plasma calcium adam urement (mass/volume)Ordered By: Kathi Juarez on 12-04-2024 Calcium [Mass/Vol] 9.3 mg/dL 7.6-11.0 [facility] Serum or plasma urea nitroge n measurement (mass/volume)Ordered By: Kathi Juarez on 12-04-2024 Urea nitrogen [Mass/Vol] 19 mg/dL 4-19 [facility] Sodium levelOrdered By: Fuentes Juarez on 12-04-2024 Sodium [Moles/Vol] 138 mmol/L 133-145 [facility] Total proteinOrdered By: Sarthak Juarez on 12-04-2024 Protein [Mass/Vol] 6.6 g/dL 5.9-8.4 [facility] White blood cell (WBC) count Ordered By: Kathi Juarez on 12-04-2024 WBC (Bld) [#/Vol] 6.3 10*3/uL 4.4-11.0 [facility] Anion gap in Serum or Plasma Ordered By: Kathi Juarez on 11-26-2024 Anion gap [Moles/Vol] 11 mmol/L 5-15 [facility] BUN/creatinine ratioOrdered By: Kathi Juarez on 11-26-2024 Urea nitrogen/Creatinine [Mass ratio] 17.8 mg/mg 10-20 [facility] Bilirubin directOrdered By: Kathi Juarez on 11-26-2024 Bilirubin.direct [Mass/Vol] 0.28 mg/dL 0.00-0.30 [facility] Bilirubin, totalOrdered By: Kathi Juarez on 11-26-2024 Bilirubin [Mass/Vol] 0.62 mg/dL 0.00-1.30 [facility] Carbon dioxide, total [Moles /volume] in Central venous bloodOrdered By: Kathi Juarez on 11-26-2024 CO2 [Moles/Vol] 22.3 mmol/L 21.0-32.0 [facility] Chloride assayOrdered By: Emir Juarez on 11-26-2024 Chloride [Moles/Vol] 106 mmol/L 98-108 [facility] Glomerular filtration rate ( GFR) estimation/1.73 sq m using serum, plasma, or whole bOrdered By: Kathi Juarez on 11-26-2024 GFR/1.73 sq M.predicted among non-blacks MDRD (S/P/Bld) [Vol rate/Area] 59 mL/min/{1.73_m2} Low >60 [facility] Comment on above: mL/min/1.73m2 CKD-EP I Creatinine Equation (2020) Laboratory - Chemistry and C hemistry - challengeOrdered By: Kathi Juarez on 11-26-2024 AST [Catalytic activity/Vol] 35 U/L High <32 [facility] Magnesium measurement (mass/ volume)Ordered By: Kathi Juarez on 11-26-2024 Magnesium (Unsp spec) [Mass/Vol] 2.2 mg/dL 1.5-2.2 [facility] Potassium measurement (mass/ volume)Ordered By: Kathi Juarez on 11-26-2024 Potassium (Unsp spec) [Mass/Vol] 3.5 mmol/L 3.3-5.1 [facility] Serum creatinine measurement (mass/volume)Ordered By: Kathi Juarez on 11-26-2024 Creatinine [Mass/Vol] 0.96 mg/dL 0.70-1.20 [facility] Serum globulin measurementOr dered By: Kathi Juarez on 11-26-2024 Globulin (S) [Mass/Vol] 2.8 g/dL 2.2-4.2 [facility] Serum glucose measurement (m ass/volume)Ordered By: Kathi Juarez on 11-26-2024 Glucose [Mass/Vol] 97 mg/dL 70-99 [facility] Serum or plasma alanine jiang otransferase (ALT) measurementOrdered By: Kathi Juarez on 11-26-2024 ALT [Catalytic activity/Vol] 30 U/L <35 [facility] Serum or plasma albumin adam urement (mass/volume)Ordered By: Kathi Juarez on 11-26-2024 Albumin [Mass/Vol] 3.2 g/dL Low 3.4-4.8 [facility] Serum or plasma alkaline herminio sphatase measurementOrdered By: Kathi Juarez on 11-26-2024 ALP [Catalytic activity/Vol] 72 U/L 35-104 [facility] Serum or plasma calcium adam urement (mass/volume)Ordered By: Kathi Juarez on 11-26-2024 Calcium [Mass/Vol] 9.2 mg/dL 7.6-11.0 [facility] Serum or plasma urea nitroge n measurement (mass/volume)Ordered By: Kathi Juarez on 11-26-2024 Urea nitrogen [Mass/Vol] 17 mg/dL 4-19 [facility] Sodium levelOrdered By: Fuentes Juarez on 11-26-2024 Sodium [Moles/Vol] 139 mmol/L 133-145 [facility] TSH DL <= 0.005 mIU/L QnOrde red By: Kathi Juarez on 11-26-2024 TSH Qn 1.450 uIU/mL 0.300-4.200 [facility] Total proteinOrdered By: Sarthak Juarez on 11-26-2024 Protein [Mass/Vol] 6.0 g/dL 5.9-8.4 [facility] ECG 12 lead - CLINIC PERFORM EDon 11-19-2024 Atrial fibrillation -occasional ectopic ventricular beat -Consider old anteroseptal infarct. -Negative T-waves -Lateral ischemia. ABNORMAL [facility] Progress Noteon 11-19-2024 Progress Note Normal [facility] Anion gap in Serum or Plasma Ordered By: Kathi Juarez on 11-04-2024 Anion gap [Moles/Vol] 9 mmol/L 5-15 [facility] BUN/creatinine ratioOrdered By: Kathi Juarez on 11-04-2024 Urea nitrogen/Creatinine [Mass ratio] 21.7 mg/mg High 10-20 [facility] Bilirubin, totalOrdered By: Kathi Juarez on 11-04-2024 Bilirubin [Mass/Vol] 0.69 mg/dL 0.00-1.30 [facility] Carbon dioxide, total [Moles /volume] in Central venous bloodOrdered By: Kathi Juarez on 11-04-2024 CO2 [Moles/Vol] 23.3 mmol/L 21.0-32.0 [facility] Chloride assayOrdered By: Emir Juarez on 11-04-2024 Chloride [Moles/Vol] 102 mmol/L 98-108 [facility] Erythrocyte distribution wid th ratioOrdered By: Kathi Juarez on 11-04-2024 Erythrocyte distribution width (RBC) [Ratio] 13.2 % 11.6-14.6 [facility] Erythrocyte distribution wid th standard deviationOrdered By: Kathi Juarez on 11-04-2024 Erythrocyte distribution width (RBC) [Ratio] 47.2 fl High 35.1-43.9 [facility] Glomerular filtration rate ( GFR) estimation/1.73 sq m using serum, plasma, or whole bOrdered By: Kathi Juarez on 11-04-2024 GFR/1.73 sq M.predicted among non-blacks MDRD (S/P/Bld) [Vol rate/Area] 49 mL/min/{1.73_m2} Low >60 [facility] Comment on above: mL/min/1.73m2 CKD-EP I Creatinine Equation (2020) Hematocrit Auto (Bld) [Volum e fraction]Ordered By: Kathi Juarez on 11-04-2024 Hematocrit (Bld) [Volume fraction] 42.3 % 37-47 [facility] Hemoglobin measurementOrdere d By: Kathi Juarez on 11-04-2024 Hemoglobin (Bld) [Mass/Vol] 13.8 g/dL 12.0-15.0 [facility] Laboratory - Chemistry and C hemistry - challengeOrdered By: Kathi Juarez on 11-04-2024 AST [Catalytic activity/Vol] 27 U/L <32 [facility] MCV (mean corpuscular volume ) determinationOrdered By: Kathi Juarez on 11-04-2024 MCV (RBC) [Entitic vol] 98.4 fL 81-99 [facility] Mean corpuscular hemoglobin (MCH) determinationOrdered By: Kathi Juarez on 11-04-2024 MCH (RBC) [Entitic mass] 32.1 pg High 27.0-32.0 [facility] Mean corpuscular hemoglobin concentration (MCHC) determinationOrdered By: Kathi Juarez on 11-04-2024 MCHC (RBC) [Mass/Vol] 32.6 g/dL 32-36 [facility] Mean platelet volume determi nationOrdered By: Kathi Juarez on 11-04-2024 Platelet mean volume (Bld) [Entitic vol] 8.7 fL 6.2-12.0 [facility] Platelet countOrdered By: Emir Juarez on 11-04-2024 Platelets (Bld) [#/Vol] 359 10*3/uL 150-450 [facility] Potassium measurement (mass/ volume)Ordered By: Kathi Juarez on 11-04-2024 Potassium (Unsp spec) [Mass/Vol] 4.7 mmol/L 3.3-5.1 [facility] RBC Auto (Bld) [#/Vol]Ordere d By: Kathi Juarez on 11-04-2024 RBC (Bld) [#/Vol] 4.30 10*6/uL 4.2-5.4 [facility] Serum creatinine measurement (mass/volume)Ordered By: Kathi Juarez on 11-04-2024 Creatinine [Mass/Vol] 1.12 mg/dL 0.70-1.20 [facility] Serum globulin measurementOr dered By: Kathi Juarez on 11-04-2024 Globulin (S) [Mass/Vol] 3.4 g/dL 2.2-4.2 [facility] Serum glucose measurement (m ass/volume)Ordered By: Kathi Juarez on 11-04-2024 Glucose [Mass/Vol] 117 mg/dL High 70-99 [facility] Serum or plasma alanine jiang otransferase (ALT) measurementOrdered By: Kathi Juarez on 11-04-2024 ALT [Catalytic activity/Vol] 20 U/L <35 [facility] Serum or plasma albumin adam urement (mass/volume)Ordered By: Kathi Juarez on 11-04-2024 Albumin [Mass/Vol] 3.9 g/dL 3.4-4.8 [facility] Serum or plasma albumin/glob ulin mass ratioOrdered By: Kathi Juarez on 11-04-2024 Albumin/Globulin [Mass ratio] 1.2 {ratio} 0.9-2.4 [facility] Serum or plasma alkaline herminio sphatase measurementOrdered By: Kathi Juarez on 11-04-2024 ALP [Catalytic activity/Vol] 82 U/L 35-104 [facility] Serum or plasma calcium adam urement (mass/volume)Ordered By: Kathi Juarez on 11-04-2024 Calcium [Mass/Vol] 9.9 mg/dL 7.6-11.0 [facility] Serum or plasma urea nitroge n measurement (mass/volume)Ordered By: Kathi Juarez on 11-04-2024 Urea nitrogen [Mass/Vol] 24 mg/dL High 4-19 [facility] Sodium levelOrdered By: Fuentes Juarez on 11-04-2024 Sodium [Moles/Vol] 134 mmol/L 133-145 [facility] Total proteinOrdered By: Sarthak Juarez on 11-04-2024 Protein [Mass/Vol] 7.3 g/dL 5.9-8.4 [facility] White blood cell (WBC) count Ordered By: Kathi Juarez on 11-04-2024 WBC (Bld) [#/Vol] 8.0 10*3/uL 4.4-11.0 [facility] 30on 11-01-2024 30 Normal [facility] 30 [facility] [id number] 11-01-2024 [id number] Normal [facility] [id number] [facility] [id number] Discharge med list transmitted to return back to [facility] via [facility] per TCC request. [facility] [id number] Normal [facility] [id number] Sent updated notes to return back to [facility] via [facility] per TCC request. Await review and response regarding ability to accept. TCC notified. [facility] CBC W Auto Differential pane l (Bld)on 11-01-2024 Basophils (Bld) [#/Vol] 0.1 10*3/uL 0.0 - 0.2 10*3/uL [facility] Basophils/100 WBC (Bld) 0.8 % 0.0 - 2.0 % [facility] Eosinophils (Bld) [#/Vol] 0.4 10*3/uL 0. 0 - 0.5 10*3/uL [facility] Eosinophils/100 WBC (Bld) 5.1 % 0.0 - 6.0 % [facility] Erythrocyte distribution width (RBC) [Ratio] 13.2 % 11.5 - 15.0 % [facility] Hematocrit (Bld) [Volume fraction] 42.3 % 35.0 - 47.0 % [facility] Hemoglobin (Bld) [Mass/Vol] 13.8 g/dL 11.7 - 16.0 g/dL [facility] Immature granulocytes (Bld) [#/Vol] 0 10*3/uL NINF - 0.1 10*3/uL [facility] Immature granulocytes/100 WBC (Bld) 0.4 % 0.0 - 2.0 % [facility] Interpretation and review of laboratory results Abnormal [facility] th Lymphocytes (Bld) [#/Vol] 2.4 10*3/uL 1. 0 - 4.3 10*3/uL [facility] Lymphocytes/100 WBC (Bld) 31.1 % 15 .0 - 45.0 % [facility] MCH (RBC) [Entitic mass] 31.3 pg 26. 0 - 34.0 pg [facility] MCHC (RBC) [Mass/Vol] 32.6 % 30.5 - 36.0 % [facility] MCV (RBC) [Entitic vol] 95.9 fL 77.0 - 99.0 fL [facility] Monocytes (Bld) [#/Vol] 1 10*3/uL High 0.0 - 0.9 10*3/uL [facility] Monocytes/100 WBC (Bld) 13.1 % High 5.0 - 13.0 % [facility] Neutrophils (Bld) [#/Vol] 3.8 10*3/uL 1. 8 - 7.5 10*3/uL [facility] Neutrophils/100 WBC (Bld) 49.5 % 38 .0 - 82.0 % [facility] Nucleated RBC/100 WBC (Bld) [Ratio] 0 % [facility] Platelet mean volume (Bld) [Entitic vol] 8.4 fL Low 9.0 - 12.7 fL [facility] Platelets (Bld) [#/Vol] 313 10*3/uL 140 - 440 10*3/uL [facility] RBC (Bld) [#/Vol] 4.41 10*6/uL 3.80 - 5.2 0 10*6/uL [facility] WBC (Bld) [#/Vol] 7.8 10*3/uL 3.6 - 10.7 10*3/uL [facility] CBC WITH AUTO DIFFERENTIALon 11-01-2024 Basophils (Bld) [#/Vol] 0.1 10*3/uL Normal 0.0-0.2 [facility] Comment on above: Performed By: #### L [id number] ####[employer] Supervisor: ROSETTE ZHAO ([phone])[facility] NORTHKeren (SBAB)[address] [place] [address] Basophils/100 WBC (Bld) 0.8 % Normal 0.0-2.0 S [facility] Comment on above: Performed By: #### L [id number] ####[employer] Supervisor: ROSETTE ZHAO ([phone])[facility] (SBHLAB)[address] Eosinophils (Bld) [#/Vol] 0.4 10*3/uL Normal 0.0-0.5 [facility] Comment on above: Performed By: #### L [id number] ####[employer] Supervisor: ROSETTE ZHAO ([phone])[facility] (SBHLAB)[address] Eosinophils/100 WBC (Bld) 5.1 % Normal 0.0-6.0 [facility] Comment on above: Performed By: #### L [id number] ####[employer] Supervisor: ROSETTE ZHAO ([phone])[facility] Erythrocyte distribution width (RBC) [Ratio] 13.2 % Normal 11.5-15.0 [facility] Comment on above: Performed By: #### L [id number] ####[employer] Supervisor: ROSETTE ZHAO ([phone])[facility] ([facility])[address] [place] [address] Hematocrit (Bld) [Volume fraction] 42.3 % Normal 35.0-47.0 [facility] Comment on above: Performed By: #### L [id number] ####[employer] Supervisor: ROSETTE ZHAO ([phone])[facility] ([facility])[address] [place] [address] Hemoglobin (Bld) [Mass/Vol] 13.8 g/dL Normal 11.7-16.0 [facility] Comment on above: Performed By: #### L [id number] ####[employer] Supervisor: ROSETTE ZHAO ([phone])[facility])[address] IMMATURE GRANS % 0.4 % Normal 0.0-2.0 [facility] Comment on above: Performed By: #### L [id number] ####[employer] Supervisor: ROSETTE ZHAO ([phone])[facility])[address] IMMATURE GRANS ABSOLUTE 0.0 10*3/uL Normal <0.1 [facility] Comment on above: Performed By: #### L [id number] ####[employer] Supervisor: ROSETTE ZHAO ([phone])[facility] (SBHLAB)[address] Lymphocytes (Bld) [#/Vol] 2.4 10*3/uL Normal 1.0-4.3 [facility] Comment on above: Performed By: #### L [id number] ####[employer] Supervisor: ROSETTE ZHAO ([phone])[facility] SOUTHYamilet [facility]ANT[facility] (SBHLAB)[address] Lymphocytes/100 WBC (Bld) 31.1 % Normal 15.0-45.0 [facility] Comment on above: Performed By: #### L [id number] ####[employer] Supervisor: ROSETTE ZHAO ([phone])[facility] SOUTHYamilet [facility] (SBHLAB)[address] MCH (RBC) [Entitic mass] 31.3 pg Normal 26.0-34.0 [facility] Comment on above: Performed By: #### L [id number] ####[employer] Supervisor: ROSETTE ZHAO ([phone])[facility] SOUTHYamilet [facility]ONSANT[facility] HOSPITALKeren (SBHLAB)[address] MCHC 32.6 % Normal 30.5-36.0 [facility] Comment on above: Performed By: #### L [id number] ####[employer] Supervisor: ROSETTE ZHAO ([phone])[facility] SOUTHYamilet MCKEONARACELI (SBHLAB)[address] MCV (RBC) [Entitic vol] 95.9 fL Normal 77.0-99.0 S [facility] Comment on above: Performed By: #### L [id number] ####[employer] Supervisor: ROSETTE ZHAO ([phone])[facility] SOUTHYamilet [place] (SBHLAB)[address] Monocytes (Bld) [#/Vol] 1.0 10*3/uL High 0.0-0.9 [facility] Comment on above: Performed By: #### L [id number] ####[employer] Supervisor: ROSETTE [phone])[facility] (SBHLAB)[address] [place] [address] [place] Monocytes/100 WBC (Bld) 13.1 % High 5.0-13.0 [facility] Comment on above: Performed By: #### L [id number] ####[employer] Supervisor: ROSETTE ZHAO ([phone])[facility] S[facility]THA [place] (SBHLAB)[address] NEUTROPHILS ABSOLUTE 3.8 10*3/uL Normal 1.8-7.5 [facility] Comment on above: Performed By: #### L [id number] ####[employer] Supervisor: ROSETTE ZHAO ([phone])[facility]A [place] (SBHLAB)[address] Neutrophils/100 WBC (Bld) 49.5 % Normal 38.0-82.0 [facility] Comment on above: Performed By: #### L [id number] ####[employer] Supervisor: ROSETTE ZHAO ([phone])[facility]A [place] (SBHLAB)[address] NRBC 0.0 /100 WBCs Normal 0.0-2.0 [facility] Comment on above: Performed By: #### L [id number] ####[employer] Supervisor: ROSETTE ZHAO ([phone])[facility]A [place] (SBHLAB)[address] [place] [address] [place] Platelet mean volume (Bld) [Entitic vol] 8.4 fL Low 9.0-12.7 [facility] Comment on above: Performed By: #### L [id number] ####[employer] Supervisor: ROSETTE ZHAO ([phone])[facility]A [place] (SBHLAB)[address] [place] [address] [place] Platelets (Bld) [#/Vol] 313 10*3/uL Normal 140-440 [facility] Comment on above: Performed By: #### L [id number] ####[employer] Supervisor: ROSETTE ZHAO ([phone])[facility]A [facility]ANT[facility] HOSPITALN (SBHLAB)[address] RBC (Bld) [#/Vol] 4.41 10*6/uL Normal 3.80-5.20 [facility] Comment on above: Performed By: #### L [id number] ####[employer] Supervisor: ROSETTE ZHAO ([phone])[facility] NORTHN (SBHLAB)[address] WBC (Bld) [#/Vol] 7.8 10*3/uL Normal 3.6-10.7 [facility] Comment on above: Performed By: #### L [id number] ####[employer] Supervisor: ROSETTE ZHAO ([phone])[facility] (SBHLAB)[address] COMPREHENSIVE METABOLIC PANE Hua 11-01-2024 Albumin [Mass/Vol] 3.1 g/dL Low 3.4-4.8 [facility] Comment on above: Performed By: #### L AB103, LAB17 ####[employer] Supervisor: ROSETTE ZHAO ([phone])[facility] (SBHLAB)[address] ALP [Catalytic activity/Vol] 67 U/L Normal 40-150 [facility] Comment on above: Performed By: #### L AB103, LAB17 ####[employer] Supervisor: ROSETTE ZHAO ([phone])[facility] (SBHLAB)[address] ALT [Catalytic activity/Vol] 26 U/L Normal <30 [facility] Comment on above: Performed By: #### L AB103, LAB17 ####[employer] Supervisor: ROSETTE ZHAO ([phone])[facility] (SBHLAB)[address] Anion gap [Moles/Vol] 9 mmol/L Normal 3-13 [facility] Comment on above: Performed By: #### L AB103, LAB17 ####[employer] Supervisor: ROSETTE ZHAO ([phone])JCARLOSA JAIMEN (SBHLAB)[address] AST [Catalytic activity/Vol] 29 U/L Normal <34 [facility] Comment on above: Performed By: #### L AB103, LAB17 ####[employer] Supervisor: ROSETTE ZHAO ([phone])[facility]A [place] (SBHLAB)[address] Bilirubin [Mass/Vol] 0.5 mg/dL Normal <1.2 [facility] Comment on above: Performed By: #### L AB103, LAB17 ####[employer] Supervisor: ROSETTE ZHAO ([phone])[facility]A JAIMEN (SBHLAB)[address] Calcium [Mass/Vol] 9.1 mg/dL Normal 8.8-10.0 [facility] Comment on above: Performed By: #### L AB103, LAB17 ####[employer] Supervisor: ROSETTE ZHAO ([phone])[facility]A JAIMEN (SBHLAB)[address] [place] [address] [place] Chloride [Moles/Vol] 102 mmol/L Normal 98-107 [facility] Comment on above: Performed By: #### L AB103, LAB17 ####[employer] Supervisor: ROSETTE ZHAO ([phone])[facility]A [place] (SBHLAB)[address] [place] [address] [place] CO2 [Moles/Vol] 23 mmol/L Normal 23-31 [facility] Comment on above: Performed By: #### L AB103, LAB17 ####[employer] Supervisor: ROSETTE ZHAO ([phone])[facility]A [place] (SBHLAB)[address] [place] [address] [place] Creatinine [Mass/Vol] 1.01 mg/dL Normal 0.57-1.11 [facility] Comment on above: Performed By: #### L AB103, LAB17 ####[employer] Supervisor: ROSETTE ZHAO ([phone])[facility] NORTHN (SBHLAB)[address] [place] [address] [place] GLOMERULAR FILTRATION RATE ML/MIN/1.73 SQ M.PREDICTED 55.7 mL/min/1.73m*2 Low >60.0 [facility] Comment on above: Result Comment: Calc ulation based on the Chronic Kidney Disease Epidemiology Collaboration (CKD-EPI) equation refit without adjustment for race Performed By: #### L AB103, LAB17 ####[employer] Supervisor: ROSETTE ZHAO ([phone])[facility] (SBHLAB)[address] Glucose [Mass/Vol] 120 mg/dL High 82-115 [facility] Comment on above: Performed By: #### L 103, LAB17 ####[employer] Supervisor: ROSETTE ZHAO ([phone])[facility] (SBHLAB)[address] Potassium [Moles/Vol] 3.5 mmol/L Normal 3.5-5.1 [facility] Comment on above: Result Comment: [facility] potassium values may be up to 0.5 mmol/L lower than serum values. Performed By: #### L AZ, LAB17 ####[employer] Supervisor: ROSETTE ZHAO ([phone])[facility] (SBHLAB)[address] Protein [Mass/Vol] 6.4 g/dL Normal 6.4-8.3 [facility] Comment on above: Performed By: #### L AB103, LAB17 ####[employer] Supervisor: ROSETTE ZHAO ([phone])[facility] (SBHLAB)[address] [place] [address] [place] Sodium [Moles/Vol] 134 mmol/L Low 136-145 [facility] Comment on above: Performed By: #### L AB103, LAB17 ####[employer] Supervisor: ROSETTE ZHAO ([phone])[facility] (SBHLAB)[address] [place] [address] [place] Urea nitrogen [Mass/Vol] 26 mg/dL High 9-23 [facility] Comment on above: Performed By: #### L AB103, LAB17 ####[employer] Supervisor: ROSETTE ZHAO ([phone])[facility] JAIMEKeren (SBHLAB)[address] [place] [address] Comprehensive metabolic 1998 panelon 11-01-2024 Albumin [Mass/Vol] 3.1 g/dL Low 3.4 - 4.8 g/dL [facility] ALP [Catalytic activity/Vol] 67 U/L 40 - 150 U/L [facility] ALT [Catalytic activity/Vol] 26 U/L NINF - 30 U/L [facility] Anion gap [Moles/Vol] 9 mmol/L 3 - 13 mmol/L [facility] AST [Catalytic activity/Vol] 29 U/L [facility] - 34 U/L [facility] Bilirubin [Mass/Vol] 0.5 mg/dL NINF - 1.2 mg/dL [facility] Calcium [Mass/Vol] 9.1 mg/dL 8.8 - 10. 0 mg/dL [facility] Chloride [Moles/Vol] 102 mmol/L 98 - 10 7 mmol/L [facility] CO2 [Moles/Vol] 23 mmol/L 23 - 31 mmol/L [facility] Creatinine [Mass/Vol] 1.01 mg/dL 0.57 - 1.11 mg/dL [facility] GFR/1.73 sq M.predicted (S/P/Bld) [Vol rate/Area] 55.7 mL/min Low - PINF [facility] Comment on above: Calculation based on the Chronic Kidney Disease Epidemiology Collaboration (CKD-EPI) equation refit without adjustment for race Glucose [Mass/Vol] 120 mg/dL High 82 - 115 mg/dL [facility] Interpretation and review of laboratory results Abnormal [facility] th Potassium [Moles/Vol] 3.5 mmol/L 3.5 - 5.1 mmol/L [facility] Comment on above: Plasma potassium morro ues may be up to 0.5 mmol/L lower than serum values. Protein [Mass/Vol] 6.4 g/dL 6.4 - 8.3 g/dL [facility] Sodium [Moles/Vol] 134 mmol/L Low 136 - 145 mmol/L [facility] Urea nitrogen [Mass/Vol] 26 mg/dL High 9 - 23 mg/d L [facility] Laboratory - Chemistry and C hemistry - challengeon 11-01-2024 Magnesium [Mass/Vol] 1.9 mg/dL 1.6 - 2 .6 mg/dL [facility] MAGNESIUMon 11-01-2024 Magnesium [Mass/Vol] 1.9 mg/dL Normal 1.6-2.6 [facility] Comment on above: Result Comment: HUSSAIN Bhatt COMMENTS:Higher values can be expected in females during menses. Performed By: #### L AB103, LAB17 ####[employer] Supervisor: ROSETTE ZHAO ([phone])[facility] [place] [address] Magnesium [Mass/Vol]on 11-01 Interpretation and review of laboratory results Normal [facility] Higher values can be expected in females during menses. [facility] Nursing Noteon 11-01-2024 Nursing Note Report called to [facility] Kilpatrick RN. 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 The nurse was not available that this time. Will attempt again Call to family. Voicemail left for son Parris to update him as well. Normal [facility] Progress Noteon 11-01-2024 Progress Note Normal [facility] Progress Note Normal [facility] CBC W Auto Differential pane l (Bld)on 10-31-2024 Basophils (Bld) [#/Vol] 0.1 10*3/uL 0.0 - 0.2 10*3/uL [facility] Basophils/100 WBC (Bld) 0.8 % 0.0 - 2.0 % [facility] Eosinophils (Bld) [#/Vol] 0.3 10*3/uL 0. 0 - 0.5 10*3/uL [facility] Eosinophils/100 WBC (Bld) 3.8 % 0.0 - 6.0 % [facility] Erythrocyte distribution width (RBC) [Ratio] 13.2 % 11.5 - 15.0 % [facility] Hematocrit (Bld) [Volume fraction] 44.3 % 35.0 - 47.0 % [facility] Hemoglobin (Bld) [Mass/Vol] 14.5 g/dL 11.7 - 16.0 g/dL [facility] Immature granulocytes (Bld) [#/Vol] 0 10*3/uL NINF - 0.1 10*3/uL [facility] Immature granulocytes/100 WBC (Bld) 0.2 % 0.0 - 2.0 % [facility] Interpretation and review of laboratory results Abnormal [facility] th Lymphocytes (Bld) [#/Vol] 3 10*3/uL 1. 0 - 4.3 10*3/uL [facility] Lymphocytes/100 WBC (Bld) 33.3 % 15 .0 - 45.0 % [facility] MCH (RBC) [Entitic mass] 31.8 pg 26. 0 - 34.0 pg [facility] MCHC (RBC) [Mass/Vol] 32.7 % 30.5 - 36.0 % [facility] MCV (RBC) [Entitic vol] 97.1 fL 77.0 - 99.0 fL [facility] Monocytes (Bld) [#/Vol] 1 10*3/uL High 0.0 - 0.9 10*3/uL [facility] Monocytes/100 WBC (Bld) 11.5 % 5.0 - 13.0 % [facility] Neutrophils (Bld) [#/Vol] 4.5 10*3/uL 1. 8 - 7.5 10*3/uL [facility] Neutrophils/100 WBC (Bld) 50.4 % 38 .0 - 82.0 % [facility] Nucleated RBC/100 WBC (Bld) [Ratio] 0 % [facility] Platelet mean volume (Bld) [Entitic vol] 8.7 fL Low 9.0 - 12.7 fL [facility] Platelets (Bld) [#/Vol] 319 10*3/uL 140 - 440 10*3/uL [facility] RBC (Bld) [#/Vol] 4.56 10*6/uL 3.80 - 5.2 0 10*6/uL [facility] WBC (Bld) [#/Vol] 9 10*3/uL 3.6 - 10.7 10*3/uL [facility] CBC WITH AUTO DIFFERENTIALon 10-31-2024 Basophils (Bld) [#/Vol] 0.1 10*3/uL Normal 0.0-0.2 [facility] Comment on above: Performed By: #### L [id number] ####[employer] Supervisor: ROSETTE ZHAO ([phone])[facility] (SBHLAB)[address] Basophils/100 WBC (Bld) 0.8 % Normal 0.0-2.0 [facility] Comment on above: Performed By: #### L [id number] ####[employer] Supervisor: ROSETTE ZHAO ([phone])[facility] (SBHLAB)[address] Eosinophils (Bld) [#/Vol] 0.3 10*3/uL Normal 0.0-0.5 [facility] Comment on above: Performed By: #### L [id number] ####[employer] Supervisor: ROSETTE ZHAO ([phone])[facility] (SBHLAB)[address] Eosinophils/100 WBC (Bld) 3.8 % Normal 0.0-6.0 [facility] Comment on above: Performed By: #### L [id number] ####[employer] Supervisor: ROSETTE ZHAO ([phone])[facility] (SBHLAB)[address] Erythrocyte distribution width (RBC) [Ratio] 13.2 % Normal 11.5-15.0 [facility] Comment on above: Performed By: #### L [id number] ####[employer] Supervisor: ROSETTE ZHAO ([phone])[facility] (SBHLAB)[address] Hematocrit (Bld) [Volume fraction] 44.3 % Normal 35.0-47.0 [facility] Comment on above: Performed By: #### L [id number] ####[employer] Supervisor: ROSETTE ZHAO ([phone])[facility] (SBHLAB)[address] Hemoglobin (Bld) [Mass/Vol] 14.5 g/dL Normal 11.7-16.0 [facility] Comment on above: Performed By: #### L [id number] ####[employer] Supervisor: ROSETTE ZHAO ([phone])[facility] (SBHLAB)[address] IMMATURE GRANS % 0.2 % Normal 0.0-2.0 [facility] Comment on above: Performed By: #### L [id number] ####[employer] Supervisor: ROSETTE ZHAO ([phone])[facility] (SBAB)[address] IMMATURE GRANS ABSOLUTE 0.0 10*3/uL Normal <0.1 [facility] Comment on above: Performed By: #### L [id number] ####[employer] Supervisor: ROSETTE ZHAO ([phone])[facility] ([facility])[address] Lymphocytes (Bld) [#/Vol] 3.0 10*3/uL Normal 1.0-4.3 [facility] Comment on above: Performed By: #### L [id number] ####[employer] Supervisor: ROSETTE ZHAO ([phone])[facility] (SBAB)[address] Lymphocytes/100 WBC (Bld) 33.3 % Normal 15.0-45.0 [facility] Comment on above: Performed By: #### L [id number] ####[employer] Supervisor: ROSETTE ZHAO ([phone])[facility] (SBHLAB)[address] MCH (RBC) [Entitic mass] 31.8 pg Normal 26.0-34.0 [facility] Comment on above: Performed By: #### L [id number] ####[employer] Supervisor: ROSETTE ZHAO ([phone])[facility])[address] MCHC 32.7 % Normal 30.5-36.0 [facility] Comment on above: Performed By: #### L [id number] ####[employer] Supervisor: ROSETTE MONTALVOVIK ([phone])[facility] (SBHLAB)[address] MCV (RBC) [Entitic vol] 97.1 fL Normal 77.0-99.0 S [facility] Comment on above: Performed By: #### L [id number] ####[employer] Supervisor: ROSETTE MONTALVOVIK ([phone])[facility] (SBHLAB)[address] Monocytes (Bld) [#/Vol] 1.0 10*3/uL High 0.0-0.9 [facility] Comment on above: Performed By: #### L [id number] ####[employer] Supervisor: ROSETTE ZHAO ([phone])[facility] (SBHLAB)[address] Monocytes/100 WBC (Bld) 11.5 % Normal 5.0-13.0 S [facility] Comment on above: Performed By: #### L [id number] ####[employer] Supervisor: ROSETTE ZHAO ([phone])[facility] (SBHLAB)[address] [place] [address] NEUTROPHILS ABSOLUTE 4.5 10*3/uL Normal 1.8-7.5 [facility] Comment on above: Performed By: #### L [id number] ####[employer] Supervisor: ROSETTE ZHAO ([phone])[facility] ([facility])[address] Neutrophils/100 WBC (Bld) 50.4 % Normal 38.0-82.0 [facility] Comment on above: Performed By: #### L [id number] ####[employer] Supervisor: ROSETTE ZHAO ([phone])[facility] ([facility])[address] NRBC 0.0 /100 WBCs Normal 0.0-2.0 [facility] Comment on above: Performed By: #### L [id number] ####[employer] Supervisor: ROSETTE ZHAO ([phone])[facility] [place] ([facility])[address] Platelet mean volume (Bld) [Entitic vol] 8.7 fL Low 9.0-12.7 [facility] Comment on above: Performed By: #### L [id number] ####[employer] Supervisor: ROSETTE ZHAO ([phone])[facility] [place] ([facility])[address] Platelets (Bld) [#/Vol] 319 10*3/uL Normal 140-440 [facility] Comment on above: Performed By: #### L [id number] ####[employer] Supervisor: ROSETTE ZHAO ([phone])[facility] [place] ([facility])[address] RBC (Bld) [#/Vol] 4.56 10*6/uL Normal 3.80-5.20 [facility] Comment on above: Performed By: #### L [id number] ####[employer] [employer] Supervisor: ROSETTE ZHAO ([phone])[facility] [place] (SBHLAB)[address] [place] [address] WBC (Bld) [#/Vol] 9.0 10*3/uL Normal 3.6-10.7 [facility] Comment on above: Performed By: #### L [id number] ####[employer] Supervisor: ROSETTE ZHAO ([phone])[facility] [place] (SBHLAB)[address] COMPREHENSIVE METABOLIC PANE Hau 10-31-2024 Albumin [Mass/Vol] 3.4 g/dL Normal 3.4-4.8 [facility] Comment on above: Performed By: #### L AB17 ####[employer] Supervisor: ROSETTE ZHAO ([phone])[facility] [place] (SBHLAB)[address] ALP [Catalytic activity/Vol] 75 U/L Normal 40-150 [facility] Comment on above: Performed By: #### L AB17 ####[employer] Supervisor: ROSETTE ZHAO ([phone])[facility] [place] (SBHLAB)[address] ALT [Catalytic activity/Vol] 33 U/L High <30 [facility] Comment on above: Performed By: #### L AB17 ####[employer] Supervisor: ROSETTE ZHAO ([phone])[facility] ([facility])[address] Anion gap [Moles/Vol] 7 mmol/L Normal 3-13 [facility] Comment on above: Performed By: #### L AB17 ####[employer] Supervisor: ROSETTE ZHAO ([phone])[facility] (HL[facility])[address] AST [Catalytic activity/Vol] 39 U/L High <34 [facility] Comment on above: Performed By: #### L AB17 ####[employer] Supervisor: ROSETTE ZHAO ([phone])[facility] [place] (HLAB)[address] Bilirubin [Mass/Vol] 0.7 mg/dL Normal <1.2 [facility] Comment on above: Performed By: #### L AB17 ####[employer] Supervisor: ROSETTE ZHAO ([phone])[facility] (HL[facility])[address] Calcium [Mass/Vol] 9.5 mg/dL Normal 8.8-10.0 [facility] Comment on above: Performed By: #### L AB17 ####[employer] Supervisor: ROSETTE ZHAO ([phone])[facility] (SB[facility])[address] Chloride [Moles/Vol] 104 mmol/L Normal 98-107 [facility] Comment on above: Performed By: #### L AB17 ####[employer] Supervisor: ROSETTE ZHAO ([phone])[facility] (SB[facility])[address] CO2 [Moles/Vol] 24 mmol/L Normal 23-31 [facility] Comment on above: Performed By: #### L AB17 ####[employer] Supervisor: ROSETTE ZHAO ([phone])[facility] (SBHLAB)[address] Creatinine [Mass/Vol] 1.08 mg/dL Normal 0.57-1.11 [facility] Comment on above: Performed By: #### L AB17 ####[employer] Supervisor: ROSETTE ZHAO ([phone])[facility] (SBHLAB)[address] GLOMERULAR FILTRATION RATE ML/MIN/1.73 SQ M.PREDICTED 51.4 mL/min/1.73m*2 Low >60.0 [facility] Comment on above: Result Comment: Calc ulation based on the Chronic Kidney Disease Epidemiology Collaboration (CKD-EPI) equation refit without adjustment for race Performed By: #### L AB17 ####[employer] Supervisor: ROSETTE ZHAO ([phone])[facility] (SBHLAB)[address] Glucose [Mass/Vol] 98 mg/dL Normal 82-115 [facility] Comment on above: Performed By: #### L AB17 ####[employer] Supervisor: ROSETTE ZHAO ([phone])[facility] (SBHLAB)[address] Potassium [Moles/Vol] 3.7 mmol/L Normal 3.5-5.1 [facility] Comment on above: Result Comment: [facility] potassium values may be up to 0.5 mmol/L lower than serum values. Performed By: #### L AB17 ####[employer] Supervisor: ROSETTE ZHAO ([phone])[facility] (SBHLAB)[address] Protein [Mass/Vol] 6.8 g/dL Normal 6.4-8.3 [facility] Comment on above: Performed By: #### L AB17 ####[employer] Supervisor: ROSETTE MONTALVOVIK ([phone])[facility] SOUTHYamilet [facility]ITAL[facility] (SBHLAB)[address] Sodium [Moles/Vol] 135 mmol/L Low 136-145 [facility] Comment on above: Performed By: #### L AB17 ####[employer] Supervisor: ROSETTE HUMPHREYSJONNIE ([phone])[facility] (SBHLAB)[address] Urea nitrogen [Mass/Vol] 24 mg/dL High 9-23 [facility] Comment on above: Performed By: #### L AB17 ####[employer] Supervisor: ROSETTELITZY HUMPHREYSJONNIE ([phone])[facility] (SBHLAB)[address] Comprehensive metabolic 1998 panelon 10-31-2024 Albumin [Mass/Vol] 3.4 g/dL 3.4 - 4.8 g/dL [facility] ALP [Catalytic activity/Vol] 75 U/L 40 - 150 U/L [facility] ALT [Catalytic activity/Vol] 33 U/L High [facility] - [facility] U/L [facility] Anion gap [Moles/Vol] 7 mmol/L 3 - 13 mmol/L [facility] AST [Catalytic activity/Vol] 39 U/L High NINF - 34 U/L [facility] Bilirubin [Mass/Vol] 0.7 mg/dL NINF - 1.2 mg/dL [facility] Calcium [Mass/Vol] 9.5 mg/dL 8.8 - 10. 0 mg/dL [facility] Chloride [Moles/Vol] 104 mmol/L 98 - 10 7 mmol/L [facility] CO2 [Moles/Vol] 24 mmol/L 23 - 31 mmol/L [facility] Creatinine [Mass/Vol] 1.08 mg/dL 0.57 - 1.11 mg/dL [facility] GFR/1.73 sq M.predicted (S/P/Bld) [Vol rate/Area] 51.4 mL/min Low - PINF [facility] Comment on above: Calculation based on the Chronic Kidney Disease Epidemiology Collaboration (CKD-EPI) equation refit without adjustment for race Glucose [Mass/Vol] 98 mg/dL 82 - 115 mg/dL [facility] Interpretation and review of laboratory results Abnormal [facility] Potassium [Moles/Vol] 3.7 mmol/L 3.5 - 5.1 mmol/L [facility] Comment on above: Plasma potassium morro ues may be up to 0.5 mmol/L lower than serum values. Protein [Mass/Vol] 6.8 g/dL 6.4 - 8.3 g/dL [facility] Sodium [Moles/Vol] 135 mmol/L Low 136 - 145 mmol/L [facility] Urea nitrogen [Mass/Vol] 24 mg/dL High 9 - 23 mg/d L [facility] Consulton 10-31-2024 Consult Normal [facility] Progress Noteon 10-31-2024 Progress Note Normal [facility] Progress Note Normal [facility] Progress Note Normal [facility] Progress Note Nutrition rescreen complete. Pt assigned a level one for nutrition care. Normal [facility] 30on 10-30-2024 30 Normal [facility] [id number] 10-30-2024 [id number] [facility] 36on 10-30-2024 36 Normal [facility] 36 Received urgent new patient request from [facility] to schedule for Atrial Fibrillation. She is scheduled to see Dr. Conner 11/19/24, but should be seen sooner. Message to typing secretary to review for sooner appointment. Normal [facility] BASIC METABOLIC PANELon 10-19 Anion gap [Moles/Vol] 12 mmol/L Normal -13 [facility] Comment on above: Performed By: #### L AB67, LAB15, [id number] ####[employer] Supervisor: ROSETTE ZHAO ([phone])[facility] ([facility] [place] [address] Calcium [Mass/Vol] 9.3 mg/dL Normal 8.8-10.0 [facility] Comment on above: Performed By: #### L AB67, LAB15, [id number] ####[employer] Supervisor: ROSETTE ZHAO ([phone])[facility] [place] (SBHLAB)[address] [place] [address] [place] Chloride [Moles/Vol] 105 mmol/L Normal 98-107 [facility] Comment on above: Performed By: #### L AB67, LAB15, [id number] ####[employer] Supervisor: ROSETTE ZHAO ([phone])[facility] [place] (SBHLAB)[address] CO2 [Moles/Vol] 20 mmol/L Low 23-31 [facility] Comment on above: Performed By: #### L AB67, LAB15, [id number] ####[employer] Supervisor: ROSETTE ZHAO ([phone])[facility]ilet [place] (SBHLAB)[address] Creatinine [Mass/Vol] 1.04 mg/dL Normal 0.57-1.11 [facility] Comment on above: Performed By: #### L AB67, LAB15, [id number] ####[employer] Supervisor: ROSETTE ZHAO ([phone])[facility] (SBHLAB)[address] GLOMERULAR FILTRATION RATE ML/MIN/1.73 SQ M.PREDICTED 53.8 mL/min/1.73m*2 Low >60.0 [facility] Comment on above: Result Comment: Calc ulation based on the Chronic Kidney Disease Epidemiology Collaboration (CKD-EPI) equation refit without adjustment for race Performed By: #### L AB67, LAB15, [id number] ####[employer] Supervisor: ROSETTE ZHAO ([phone])[facility] [place] (SBHLAB)[address] [place] [address] [place] Glucose [Mass/Vol] 126 mg/dL High 82-115 [facility] Comment on above: Performed By: #### L AB67, LAB15, [id number] ####[employer] Supervisor: ROSETTE ZHAO ([phone])[facility] (SBHLAB)[address] Potassium [Moles/Vol] 3.4 mmol/L Low 3.5-5.1 [facility] Comment on above: Result Comment: [facility] potassium values may be up to 0.5 mmol/L lower than serum values. Performed By: #### L AB67, LAB15, [id number] ####[employer] Supervisor: ROSETTE ZHAO ([phone])[facility] (SBHLAB)[address] Sodium [Moles/Vol] 137 mmol/L Normal 136-145 [facility] Comment on above: Performed By: #### L AB67, LAB15, [id number] ####[employer] Supervisor: ROSETTE ZHAO ([phone])[facility] (SBHLAB)[address] Urea nitrogen [Mass/Vol] 19 mg/dL Normal 9-23 [facility] Comment on above: Performed By: #### L AB67, LAB15, [id number] ####[employer] Supervisor: ROSETTE ZHAO ([phone])[facility] (SBHLAB)[address] Basic metabolic 1998 panelon 10-30-2024 Anion gap [Moles/Vol] 12 mmol/L 3 - 13 mmol/L [facility] Calcium [Mass/Vol] 9.3 mg/dL 8.8 - 10. 0 mg/dL [facility] Chloride [Moles/Vol] 105 mmol/L 98 - 10 7 mmol/L [facility] CO2 [Moles/Vol] 20 mmol/L Low 23 - 31 mmol/L [facility] Creatinine [Mass/Vol] 1.04 mg/dL 0.57 - 1.11 mg/dL [facility] GFR/1.73 sq M.predicted (S/P/Bld) [Vol rate/Area] 53.8 mL/min Low - PINF [facility] Comment on above: Calculation based on the Chronic Kidney Disease Epidemiology Collaboration (CKD-EPI) equation refit without adjustment for race Glucose [Mass/Vol] 126 mg/dL High 82 - 115 mg/dL [facility] Interpretation and review of laboratory results Abnormal [facility] Potassium [Moles/Vol] 3.4 mmol/L Low 3.5 - 5.1 mmol/L [facility] Comment on above: Plasma potassium morro ues may be up to 0.5 mmol/L lower than serum values. Sodium [Moles/Vol] 137 mmol/L 136 - 145 mmol/L [facility] Urea nitrogen [Mass/Vol] 19 mg/dL 9 - 23 mg/d L [facility] CBC (HEMOGRAM)on 10-30-2024 Erythrocyte distribution width (RBC) [Ratio] 13.4 % Normal 11.5-15.0 [facility] Comment on above: Performed By: #### L [id number] ####[employer] Supervisor: ROSETTE ZHAO ([phone])[facility] (SBHLAB)[address] [place] [address] Hematocrit (Bld) [Volume fraction] 41.2 % Normal 35.0-47.0 [facility] Comment on above: Performed By: #### L AB294 ####[employer] Supervisor: ROSETTE ZHAO ([phone])[facility] (SBHLAB)[address] [place] [address] Hemoglobin (Bld) [Mass/Vol] 13.4 g/dL Normal 11.7-16.0 [facility] Comment on above: Performed By: #### L AB294 ####[employer] Supervisor: ROSETTE ZHAO ([phone])[facility] (SBHLAB)[address] [place] [address] MCH (RBC) [Entitic mass] 31.8 pg Normal 26.0-34.0 [facility] Comment on above: Performed By: #### L AB294 ####[employer] Supervisor: ROSETTE ZHAO ([phone])[facility] (SBHLAB)[address] [place] [address] MCHC 32.5 % Normal 30.5-36.0 [facility] Comment on above: Performed By: #### L AB294 ####[employer] Supervisor: ROSETTE ZHAO ([phone])[facility] (SBHLAB)[address] MCV (RBC) [Entitic vol] 97.9 fL Normal 77.0-99.0 S [facility] Comment on above: Performed By: #### L AB294 ####[employer] Supervisor: ROSETTE ZHAO ([phone])[facility] [place] (SBHLAB)[address] Platelet mean volume (Bld) [Entitic vol] 8.8 fL Low 9.0-12.7 [facility] Comment on above: Performed By: #### L AB294 ####[employer] Supervisor: ROSETTE ZHAO ([phone])[facility] SOUTHYamilet [place] (SBHLAB)[address] Platelets (Bld) [#/Vol] 315 10*3/uL Normal 140-440 [facility] Comment on above: Performed By: #### L AB294 ####[employer] Supervisor: ROSETTE ZHAO ([phone])[facility] S[facility]TH[facility]am[facility] (SBHLAB)[address] [place] [address] RBC (Bld) [#/Vol] 4.21 10*6/uL Normal 3.80-5.20 [facility] Comment on above: Performed By: #### L AB294 ####[employer] Supervisor: ROSETTE ZHAO ([phone])[facility] (SBHLAB)[address] [place] [address] WBC (Bld) [#/Vol] 7.8 10*3/uL Normal 3.6-10.7 [facility] Comment on above: Performed By: #### L AB294 ####[employer] Supervisor: ROSETTE ZHAO ([phone])[facility] [place] (SBHLAB)[address] CBC panel Auto (Bld)on 10-30 Erythrocyte distribution width (RBC) [Ratio] 13.4 % 11.5 - 15.0 % [facility] Hematocrit (Bld) [Volume fraction] 41.2 % 35.0 - 47.0 % [facility] Hemoglobin (Bld) [Mass/Vol] 13.4 g/dL 11.7 - 16.0 g/dL [facility] Interpretation and review of laboratory results Abnormal [facility] MCH (RBC) [Entitic mass] 31.8 pg 26. 0 - 34.0 pg [facility] MCHC (RBC) [Mass/Vol] 32.5 % 30.5 - 36.0 % [facility] MCV (RBC) [Entitic vol] 97.9 fL 77.0 - 99.0 fL [facility] Platelet mean volume (Bld) [Entitic vol] 8.8 fL Low 9.0 - 12.7 fL [facility] Platelets (Bld) [#/Vol] 315 10*3/uL 140 - 440 10*3/uL [facility] RBC (Bld) [#/Vol] 4.21 10*6/uL 3.80 - 5.2 0 10*6/uL [facility] WBC (Bld) [#/Vol] 7.8 10*3/uL 3.6 - 10.7 10*3/uL [facility] Cobalamin (Vitamin B12) [Mas s/Vol]on 10-30-2024 Interpretation and review of laboratory results Abnormal [facility] Consulton 10-30-2024 Consult Normal [facility] Consult Normal [facility] ECG 12-LEADon 10-30-2024 ECG 12-LEAD IMPRESSION: Atrial fibrillation Left anterior fascicular block Anteroseptal infarct, old Abnormal T, consider ischemia, lateral leads no stemi Electronically Signed On 10-30-2024 07:01:44 EDT by Jt Diaz Normal [facility] ED Nursing Noteon 10-30-2024 ED Nursing Note Report called to Mark ceballos Normal [facility] ED Nursing Note Report called to Gloria Normal [facility] Laboratory - Chemistry and C hemistry - challengeon 10-30-2024 Cobalamin (Vitamin B12) [Mass/Vol] 1124 pg/mL High 213 - 816 pg/mL [facility] Magnesium [Mass/Vol] 1.9 mg/dL 1.6 - 2 .6 mg/dL [facility] MAGNESIUMon 10-30-2024 Magnesium [Mass/Vol] 1.9 mg/dL Normal 1.6-2.6 [employer] [place] [facility] Comment on above: Result Comment: HUSSAIN R COMMENTS:Higher values can be expected in females during menses. Performed By: #### L AB67, LAB15, [id number] ####[employer] Supervisor: ROSETTE ZHAO ([phone])[facility] (SBHLAB)[address] [place] [address] Magnesium [Mass/Vol]on 10-30 Interpretation and review of laboratory results Normal [facility] Higher values can be expected in females during menses. [employer] No Panel InformationOrdered By: Jt Diaz on 10-30-2024 P [place] 0 degrees [employer] Phone: CT Interval 0 ms [employer] Phone: QRS [place] -52 degrees [employer] Phone: QRSD Interval 93 ms [employer] Work Phone: QT Interval 350 ms [employer] Phone: QTC Interval 462 ms [employer] Work Phone: T Wave [place] 0 degrees [employer] Phone: [employer] Phone: No Panel Informationon 10-30 Atrial fibrillation Left anterior fascicular block Anteroseptal infarct, old Abnormal T, consider ischemia, lateral leads no stemi Electronically Signed On 10-30-2024 07:01:44 EDT by Jt Forde MD - 10/30/2024 IMPRESSION: Atrial fibrillation Left anterior fascicular block Anteroseptal infarct, old Abnormal T, consider ischemia, lateral leads no stemi Electronically Signed On 10-30-2024 07:01:44 EDT by Jt Diaz [facility] Nursing Noteon 10-30-2024 Nursing Note Normal [facility] [employer] [facility] Progress Noteon 10-30-2024 Progress Note Normal [facility] [employer] [facility] Progress Note Normal [facility] [employer] [facility] VITAMIN B12on 10-30-2024 Cobalamin (Vitamin B12) [Mass/Vol] 1124 pg/mL High 213-816 [facility] Comment on above: Performed By: #### L AB67, LAB15, [id number] ####[employer] Supervisor: ROSETTE ZHAO ([phone])[facility] (SBHLAB)[address] [place] [address] Vital signsOrdered By: Shaka Diaz on 10-30-2024 Heart rate 104 /min bpm [facility] Work Phone: BASIC METABOLIC PANELon 10-19 Anion gap [Moles/Vol] 9 mmol/L Normal 3-13 [facility] Comment on above: Performed By: #### L AB15, [id number] ####[employer] Supervisor: SHEEBA MUSTAFA ([phone])[facility] [place] (SWRLAB)[address] [place] [address] Calcium [Mass/Vol] 9.7 mg/dL Normal 8.8-10.0 [facility] Comment on above: Performed By: #### L AB15, [id number] ####[employer] Supervisor: SHEEBA MUSTAFA ([phone])[facility] [place] (SWRLAB)[address] [place] [address] [place] Chloride [Moles/Vol] 105 mmol/L Normal 98-107 [facility] Comment on above: Performed By: #### L AB15, [id number] ####[employer] Supervisor: SHEEBA MUSTAFA ([phone])[facility] [place] (SWRLAB)[address] [place] [address] [place] CO2 [Moles/Vol] 25 mmol/L Normal 23-31 [facility] Comment on above: Performed By: #### L AB15, [id number] ####[employer] Supervisor: SHEEBA MUSTAFA ([phone])[facility] [place] (SWRLAB)[address] [place] [address] [place] Creatinine [Mass/Vol] 1.17 mg/dL High 0.57-1.11 [facility] Comment on above: Performed By: #### L AB15, [id number] ####[employer] Supervisor: SHEEBA MUSTAFA ([phone])[facility] SOUTHYamilet CABR[facility]AT[facility] (RLAB)[address] [place] [address] GLOMERULAR FILTRATION RATE ML/MIN/1.73 SQ M.PREDICTED 46.7 mL/min/1.73m*2 Low >60.0 [facility] Comment on above: Result Comment: Calc ulation based on the Chronic Kidney Disease Epidemiology Collaboration (CKD-EPI) equation refit without adjustment for race Performed By: #### L AB15, [id number] ####[employer] Supervisor: SHEEBA MUSTAFA ([phone])[facility] ([facility])[address] [place] [address] Glucose [Mass/Vol] 145 mg/dL High 82-115 [facility] Comment on above: Performed By: #### L AB15, [id number] ####[employer] Supervisor: SHEEBA MUSTAFA ([phone])[facility]ITAL[facility]RA[facility]OL[facility] CABRERAT[facility] (RLAB)[address] [place] [address] Potassium [Moles/Vol] 3.9 mmol/L Normal 3.5-5.1 [facility] Comment on above: Result Comment: [facility] potassium values may be up to 0.5 mmol/L lower than serum values. Performed By: #### L AB15, [id number] ####[employer] Supervisor: SHEEBA MUSTAFA ([phone])[facility] SOUTHYamilet CABRERATMAN (SWRLAB)[address] [place] [address] [place] Sodium [Moles/Vol] 139 mmol/L Normal 136-145 [facility] Comment on above: Performed By: #### L AB15, [id number] ####[employer] Supervisor: SHEEBA MUSATFA ([phone])[facility]ITALMITRAKOL[facility] CABRERAT[facility] (RLAB)[address] [place] [address] [place] Urea nitrogen [Mass/Vol] 19 mg/dL Normal 9-23 [facility] Comment on above: Performed By: #### L AB15, [id number] ####[employer] Supervisor: SHEEBA MUSTAFA ([phone])[facility]RA YAO (SWRLAB)[address] Basic metabolic 1998 panelon 10-29-2024 Anion gap [Moles/Vol] 9 mmol/L 3 - 13 mmol/L [facility] Calcium [Mass/Vol] 9.7 mg/dL 8.8 - 10. 0 mg/dL [facility] Chloride [Moles/Vol] 105 mmol/L 98 - 10 7 mmol/L [facility] CO2 [Moles/Vol] 25 mmol/L 23 - 31 mmol/L [facility] Creatinine [Mass/Vol] 1.17 mg/dL High 0.57 - 1.11 mg/dL [facility] GFR/1.73 sq M.predicted (S/P/Bld) [Vol rate/Area] 46.7 mL/min Low - PINF [facility] Comment on above: Calculation based on the Chronic Kidney Disease Epidemiology Collaboration (CKD-EPI) equation refit without adjustment for race Glucose [Mass/Vol] 145 mg/dL High 82 - 115 mg/dL [facility] Interpretation and review of laboratory results Abnormal [facility] Potassium [Moles/Vol] 3.9 mmol/L 3.5 - 5.1 mmol/L [facility] Comment on above: Plasma potassium morro ues may be up to 0.5 mmol/L lower than serum values. Sodium [Moles/Vol] 139 mmol/L 136 - 145 mmol/L [facility] Urea nitrogen [Mass/Vol] 19 mg/dL 9 - 23 mg/d L [facility] C-REACTIVE PROTEINon 025 CRP [Mass/Vol] 6.5 mg/L High <5.0 [facility] Comment on above: Performed By: #### L AB106, LAB17, [id number], LAB99 ####[employer] Supervisor: SHEEBA MUSTAFA ([phone])[facility] SOUTHYamilet YAO (SWRLAB)[address] COMPLETE URINALYSISon 2024 BILIRUBIN, TOTAL PRESENCE IN URINE Negative Normal Negative [facility] Comment on above: Performed By: #### L AB347 ####[employer] Supervisor: SHEEBA MUSTAFA ([phone])[facility] (SWRLAB)[address] [place] [address] [place] Clarity (U) Clear Normal Clear [facility] Comment on above: Performed By: #### L AB347 ####[employer] Supervisor: SHEEBA MUSTAFA ([phone])[facility] (SWRLAB)[address] [place] [address] [place] Color (U) Light Yellow Normal Lt. Yellow [facility] Comment on above: Performed By: #### L [id number] ####[employer] Supervisor: SHEEBA MUSTAFA ([phone])[facility] MITRA RITTMAN (SWRLAB)[address] [place] [address] [place] GLUCOSE (MG/DL) IN URINE Normal Normal Normal (<70 ) [facility] Comment on above: Performed By: #### L [id number] ####[employer] Supervisor: SHEEBA MUSTAFA ([phone])[facility] RITTMAN (SWRLAB)[address] [place] [address] [place] HEMOGLOBIN PRESENCE IN URINE Negative Normal Negative [facility] Comment on above: Performed By: #### L [id number] ####[employer] Supervisor: SHEEBA MUSTAFA ([phone])[facility] RIT[place] (SWRLAB)[address] [place] [address] [place] Ketones Ql (U) Negative Normal Negative [facility] Comment on above: Performed By: #### L [id number] ####[employer] Supervisor: SHEEBA MUSTAFA ([phone])[facility] R[place] (SWRLAB)[address] [place] [address] [place] LEUKOCYTE ESTERASE PRESENCE IN URINE BY TEST STRIP Negative Normal Negative [facility] Comment on above: Performed By: #### L [id number] ####[employer] Supervisor: SHEEBA MUSTAFA ([phone])[facility] R[place] (SWRLAB)[address] [place] [address] [place] NITRITE PRESENCE IN URINE Negative Normal Negative [facility] Comment on above: Performed By: #### L [id number] ####[employer] Supervisor: SHEEBA MUSTAFA ([phone])[facility] S[facility]THYamilet ARIZMENDI RITTMAN (SWRLAB)[address] [place] [address] [place] pH (U) 6.5 [pH] Normal 5.0-8.0 [facility] Comment on above: Performed By: #### L [id number] ####[employer] Supervisor: SHEEBA MUSTAFA ([phone])[facility] ARIZMENDI RITTMAN (SWRLAB)[address] Protein (U) [Mass/Vol] Negative Normal Negative [facility] Comment on above: Performed By: #### L [id number] ####[employer] Supervisor: SHEEBA MUSTAFA ([phone])[facility] ARIZMENDI RITTMAN (SWRLAB)[address] [place] [address] Specific gravity (U) [Rel density] 1.008 Normal 1.005-1.030 [facility] Comment on above: Performed By: #### L [id number] ####[employer] Supervisor: SHEEBA MUSTAFA ([phone])[facility] ARIZMENDI RITTMAN (SWRLAB)[address] [place] [address] UROBILINOGEN (MG/DL) IN URINE Normal Normal Normal (0-1) [facility] Comment on above: Performed By: #### L [id number] ####[employer] Supervisor: SHEEBA MUSTAFA ([phone])[facility] ARIZMENDI RITTMAN (SWRLAB)[address] [place] [address] COMPREHENSIVE METABOLIC PANE Hua 10-29-2024 Albumin [Mass/Vol] 3.6 g/dL Normal 3.4-4.8 [facility] Comment on above: Performed By: #### L [id number], LAB17, [id number], LAB99 ####[employer] Supervisor: SHEEBA MUSTAFA ([phone])[facility]TH[facility]amilet ARIZMENDI RITTMAN (SWRLAB)[address] [place] [address] [place] ALP [Catalytic activity/Vol] 84 U/L Normal 40-150 [facility] Comment on above: Performed By: #### L [id number], LAB17, [id number], LAB99 ####[employer] Supervisor: SHEEBA MUSTAFA ([phone])[facility] RITTMAN (SWRLAB)[address] [place] [address] [place] ALT [Catalytic activity/Vol] 37 U/L High <30 [facility] Comment on above: Performed By: #### L AB106, LAB17, [id number], LAB99 ####[employer] Supervisor: SHEEBA MUSTAFA ([phone])[facility] [place] RITTMAN (SWRLAB)[address] Anion gap [Moles/Vol] 9 mmol/L Normal 3-13 [facility] Comment on above: Performed By: #### L AB106, LAB17, [id number], LAB99 ####[employer] Supervisor: SHEEBA MUSTAFA ([phone])[facility] RITTMAN (SWRLAB)[address] [place] [address] [place] AST [Catalytic activity/Vol] 37 U/L High <34 [facility] Comment on above: Performed By: #### L AB106, LAB17, [id number], LAB99 ####[employer] Supervisor: SHEEBA MUSTAFA ([phone])[facility] RITTMAN (SWRLAB)[address] [place] [address] [place] Bilirubin [Mass/Vol] 0.6 mg/dL Normal <1.2 [facility] Comment on above: Performed By: #### L AB106, LAB17, [id number], LAB99 ####[employer] Supervisor: SHEEBA MUSTAFA ([phone])[facility] RITTMAN (SWRLAB)[address] [place] [address] [place] Calcium [Mass/Vol] 9.7 mg/dL Normal 8.8-10.0 [facility] Comment on above: Performed By: #### L AB106, LAB17, [id number], LAB99 ####[employer] Supervisor: SHEEBA MUSTAFA ([phone])[facility] RITTMAN (SWRLAB)[address] [place] [address] [place] Chloride [Moles/Vol] 108 mmol/L High 98-107 [facility] Comment on above: Performed By: #### L AB106, LAB17, XCS019, LAB99 ####[employer] Supervisor: SHEEBA MUSTAFA ([phone])[facility] S[facility]THYamilet ARIZMENDI RITTMAN (SWRLAB)[address] [place] [address] [place] CO2 [Moles/Vol] 21 mmol/L Low 23-31 [facility] Comment on above: Performed By: #### L AB106, LAB17, [id number], LAB99 ####[employer] Supervisor: SHEEBA MUSTAFA ([phone])[facility]THYamilet ARIZMENDI RITTMAN (SWRLAB)[address] [place] [address] [place] Creatinine [Mass/Vol] 1.06 mg/dL Normal 0.57-1.11 [facility] Comment on above: Performed By: #### L AB106, LAB17, [id number], LAB99 ####[employer] Supervisor: SHEEBA MUSTAFA ([phone])[facility]am[facility]t ARIZMENDI RITTMAN (SWRLAB)[address] [place] [address] [place] GLOMERULAR FILTRATION RATE ML/MIN/1.73 SQ M.PREDICTED 52.6 mL/min/1.73m*2 Low >60.0 [facility] Comment on above: Result Comment: Calc ulation based on the Chronic Kidney Disease Epidemiology Collaboration (CKD-EPI) equation refit without adjustment for race Performed By: #### L AB106, LAB17, [id number], LAB99 ####[employer] Supervisor: SHEEBA MUSTAFA ([phone])[facility]am[facility]t ARIZMENDI RITTMAN (SWRLAB)[address] [place] [address] [place] Glucose [Mass/Vol] 98 mg/dL Normal 82-115 [facility] Comment on above: Performed By: #### L AB106, LAB17, FYN156, LAB99 ####[employer] Supervisor: SHEEBA MUSTAFA ([phone])[facility] S[facility]THYamilet NXIMITRA RITTMAN (SWRLAB)[address] [place] [address] Potassium [Moles/Vol] 4.0 mmol/L Normal 3.5-5.1 [facility] Comment on above: Result Comment: [facility] potassium values may be up to 0.5 mmol/L lower than serum values. Performed By: #### L AB106, LAB17, [id number], LAB99 ####[employer] Supervisor: SHEEBA MUSTAFA ([phone])[facility]THYamilet CABRERATMAN (SWRLAB)[address] [place] [address] Protein [Mass/Vol] 7.3 g/dL Normal 6.4-8.3 [facility] Comment on above: Performed By: #### L AB106, LAB17, XNW155, LAB99 ####[employer] Supervisor: SHEEBA MUSTAFA ([phone])[facility] S[facility]THYamilet CABRERATMAN (SWRLAB)[address] [place] [address] Sodium [Moles/Vol] 138 mmol/L Normal 136-145 [facility] Comment on above: Performed By: #### L AB106, LAB17, [id number], LAB99 ####[employer] Supervisor: SHEEBA MUSTAFA ([phone])[facility] SOUTHYamilet FLORESAN (SWRLAB)[address] [place] [address] Urea nitrogen [Mass/Vol] 18 mg/dL Normal 9-23 [facility] Comment on above: Performed By: #### L AB106, LAB17, [id number], LAB99 ####[employer] Supervisor: SHEEBA MUSTAFA ([phone])[facility] MITRA CABRERATMAN (SWRLAB)[address] [place] [address] Comprehensive metabolic 1998 panelon 10-29-2024 Albumin [Mass/Vol] 3.6 g/dL 3.4 - 4.8 g/dL [facility] ALP [Catalytic activity/Vol] 84 U/L 40 - 150 U/L [facility] ALT [Catalytic activity/Vol] 37 U/L High NINF - 30 U/L [facility] Anion gap [Moles/Vol] 9 mmol/L 3 - 13 mmol/L [facility] AST [Catalytic activity/Vol] 37 U/L High NINF - 34 U/L [facility] Bilirubin [Mass/Vol] 0.6 mg/dL NINF - 1.2 mg/dL [facility] Calcium [Mass/Vol] 9.7 mg/dL 8.8 - 10. 0 mg/dL [facility] Chloride [Moles/Vol] 108 mmol/L High 98 - 10 7 mmol/L [facility] CO2 [Moles/Vol] 21 mmol/L Low 23 - 31 mmol/L [facility] Creatinine [Mass/Vol] 1.06 mg/dL 0.57 - 1.11 mg/dL [facility] GFR/1.73 sq M.predicted (S/P/Bld) [Vol rate/Area] 52.6 mL/min Low - PINF [facility] Comment on above: Calculation based on the Chronic Kidney Disease Epidemiology Collaboration (CKD-EPI) equation refit without adjustment for race Glucose [Mass/Vol] 98 mg/dL 82 - 115 mg/dL [facility] Potassium [Moles/Vol] 4 mmol/L 3.5 - 5.1 mmol/L [facility] Comment on above: Plasma potassium morro ues may be up to 0.5 mmol/L lower than serum values. Protein [Mass/Vol] 7.3 g/dL 6.4 - 8.3 g/dL [facility] Sodium [Moles/Vol] 138 mmol/L 136 - 145 mmol/L [facility] Urea nitrogen [Mass/Vol] 18 mg/dL 9 - 23 mg/d L [facility] D-DIMER,QUANTITATIVEon 10-29 D-DIMER, INNOVANCE 0.81 mg/L High <0.50 [facility] Comment on above: Result Comment: ORDDoretha R COMMENTS:Innovance D-Dimer values of <0.50 mg/L FEU can be used in combination with a pre-test probability model (e.g. Well's) to exclude pulmonary embolism (PE) disease, as well as an aid in the diagnosis of deep vein thrombosis (DVT). Performed By: #### L [id number] ####[employer] Supervisor: SHEEBA MUSTAFA ([phone])[facility] (SWRLAB)[address] [place] [address] ECG 12-LEADon 10-29-2024 ECG 12-LEAD IMPRESSION: Atrial fibrillation Left anterior fascicular block hr improved from prior ekg Electronically Signed On 10-29-2024 09:39:59 EDT by Marcos Araujo Normal [facility] ED Nursing Noteon 10-29-2024 ED Nursing Note Normal [facility] ED Nursing Note Patient has been incontinent of three loose bowel movements. Patient had a small emesis. Linens and gown changed, juanis care given. New purwick applied. Patient is also c/o leg cramps. Dr. Araujo aware. Normal [facility] ED Nursing Note Pur wick initiated due to incontinence, and strict intake and output. Normal [facility] ED Nursing Note Patient to room 4 with c/o atrial fibrillation that is chronic via [facility]. Per EMS it was reported to them that the patient did not sleep well last night. V/S obtained, EKG completed, call light within reach. Normal [facility] ED Provider Noteon ED Provider Note Normal [facility] Fibrin D-dimer FEU (PPP) [Ma ss/Vol]on 10-29-2024 Interpretation and review of laboratory results Abnormal [facility] D-Dimer values of <0.50 mg/L FEU can be used in combination with a pre-test probability model (e.g. Well's) to exclude pulmonary embolism (PE) disease, as well as an aid in the diagnosis of deep vein thrombosis (DVT). [facility] HIGH SENSITIVITY TROPONIN, S ERIAL BASELINEon 10-29-2024 TROPONIN HS SERIAL BASELINE 18 ng/L High <=14 [facility] Comment on above: Result Comment: In i ndividuals presenting with symptoms > 2h, a baseline troponin <= 5 ng/L suggests acutecardiac injury is unlikely and further serial testing is generally not indicated. Performed By: #### L [id number] ####[employer] Supervisor: SHEEBA MUSTAFA ([phone])[facility] MAXIMILIAN (SWRLAB)[address] [place] [address] TROPONIN HS SERIAL BASELINE 19 ng/L High <=14 [facility] Comment on above: Result Comment: In i ndividuals presenting with symptoms > 2h, a baseline troponin <= 5 ng/L suggests acutecardiac injury is unlikely and further serial testing is generally not indicated. Performed By: #### L [id number] ####[employer] Supervisor: SHEEBA MUSTAFA ([phone])[facility] MITRA MAXIMILIAN (SWRLAB)[address] [place] [address] HIGH SENSITIVITY TROPONIN, S ERIAL, SECOND TESTon 10-29-2024 2H TROPONIN HS (SERIAL 2ND TROPONIN) 19 ng/L High <=14 [facility] Comment on above: Result Comment: Risi ng or falling troponin delta below 2 ng/L as compared to baseline value suggests thatacute cardiac injury is unlikely. Performed By: #### L [id number] ####[employer] Supervisor: SHEEBA MUSTAFA ([phone])[facility]ITAL[facility]RAKOL[facility] YAO (SWRLAB)[address] [place] [address] LIPASEon 10-29-2024 Lipase [Catalytic activity/Vol] 26 U/L Normal <55 [facility] Comment on above: Performed By: #### L AB106, LAB17, [id number], LAB99 ####[employer] Supervisor: SHEEBA MUSTAFA ([phone])[facility] PiPsportsTAYLOR (NeuroMetrixRLAB)[address] [place] [address] Laboratory - Chemistry and C hemistry - challengeon 10-29-2024 Magnesium [Mass/Vol] 2 mg/dL 1.6 - 2 .6 mg/dL [facility] Lipase [Catalytic activity/Vol] 26 U/L NINF - 55 U/L [facility] CRP [Mass/Vol] 6.5 mg/L High NINF - 5.0 mg/L [facility] Laboratory - Coagulationon 0 10-29-2024 Fibrin D-dimer FEU (PPP) [Mass/Vol] 0.81 mg/L High NINF - 0.50 mg/L [facility] Laboratory - Microbiology an d Antimicrobial susceptibilityon 10-29-2024 FLUAV RNA ISSAC+probe Ql (Resp) Not detected Not Detected [facility] FLUBV RNA ISSAC+probe Ql (Resp) Not detected Not Detected [facility] RSV RNA ISSAC+probe Ql (Resp) Not detected Not Detected [facility] SARS-CoV-2 (COVID-19) RNA ISSAC+probe Ql (Resp) Not detected Not Detected [facility] SARS-CoV-2 (COVID-19) RNA ISSAC+probe Ql (Unsp spec) Methodology: real-time, RT-PCR The SARS-CoV-2, Flu A/B, and RSV Combo assay is intended for in vitro diagnostic use under the FDA Emergency Use Authorization (EUA). This test has not been FDA cleared or approved. In compliance with this authorization, please visit www.fda.gov/media/ 092/download or www.fda.gov/Ritani/ 401/download to access the applicable information sheets. [facility] Lipase [Catalytic activity/V ol]on 10-29-2024 Interpretation and review of laboratory results Normal [facility] MAGNESIUMon 10-29-2024 Magnesium [Mass/Vol] 2.0 mg/dL Normal 1.6-2.6 [facility] Comment on above: Result Comment: HUSSAIN Bhatt COMMENTS:Higher values can be expected in females during menses. Performed By: #### L AB15, [id number] ####[employer] Supervisor: SHEEBA MUSTAFA ([phone])[facility] [employer] (NeuroMetrixRLAB)[address] [place] [address] Magnesium [Mass/Vol]on 10-29 Interpretation and review of laboratory results Normal [facility] Higher values can be expected in females during menses. [facility] NT PRO BNPon 10-29-2024 Natriuretic peptide B (Bld) [Mass/Vol] 20121 pg/mL High <450 [facility] Comment on above: Performed By: #### L AB106, LAB17, [id number], LAB99 ####[employer] Supervisor: SHEEBA MUSTAFA ([phone])[facility] [employer]TMAN (NeuroMetrixRLAB)[address] [place] [address] [place] Natriuretic peptide B [Mass/ Vol]on 10-29-2024 Interpretation and review of laboratory results Abnormal [facility] Natriuretic peptide B (Bld) [Mass/Vol] 25920 pg/mL High NINF - 450 pg/mL [facility] No Panel Informationon 10-29 [facility] Interpretation and review of laboratory results Abnormal [facility] Troponin HS Serial Baseline 18 ng/L High NINF - 14 ng/L [facility] Comment on above: In individuals prese nting with symptoms > 2h, a baseline troponin <= 5 ng/L suggests acute cardiac injury is unlikely and further serial testing is generally not indicated. [facility] 2h Troponin HS (Serial 2nd Troponin) 19 ng/L High NINF - 14 ng/L [facility] Comment on above: Rising or falling tr oponin delta below 2 ng/L as compared to baseline value suggests that acute cardiac injury is unlikely. Interpretation and review of laboratory results Abnormal [facility] Interpretation and review of laboratory results Abnormal [facility] Troponin HS Serial Baseline 19 ng/L High NINF - 14 ng/L [facility] Comment on above: In individuals prese nting with symptoms > 2h, a baseline troponin <= 5 ng/L suggests acute cardiac injury is unlikely and further serial testing is generally not indicated. [facility] Interpretation and review of laboratory results Abnormal [facility] P [place] 0 degrees [facility] CT Interval 0 ms [facility] QRS [place] -40 degrees [facility] QRSD Interval 84 ms [facility] QT Interval 350 ms [facility] QTC Interval 467 ms [facility] T Wave [place] 122 degrees [facility] Atrial fibrillation Left anterior fascicular block hr improved from prior ekg Electronically Signed On 10-29-2024 09:39:59 EDT by Marcos Araujo CV Marcos Garza MD - 10/29/2024 IMPRESSION: Atrial fibrillation Left anterior fascicular block hr improved from prior ekg Electronically Signed On 10-29-2024 09:39:59 EDT by Marcos Araujo [facility] SARS-COV-2, FLU A/B, AND RSV COMBOon 10-29-2024 SARS-CoV-2 (COVID-19) RNA ISSAC+probe Ql (Unsp spec) Normal [facility] Comment on above: Performed By: #### L [id number] ####[employer] Supervisor: SHEEBA MUSTAFA ([phone])[facility] (SWRLAB[address] SARS-CoV-2, Flu A/B, and RSV Comboon 10-29-2024 Interpretation and review of laboratory results Normal [facility] Urinalysis complete panel (U )on 10-29-2024 Bilirubin Ql (U) Negative Negative mg/dL [facility] Clarity (U) Clear Clear [facility] Color (U) Light Yellow Lt. Yellow [facility] Glucose Ql (U) Normal Normal (<70) mg/dL [facility] Hemoglobin Ql (U) Negative Negative mg/dL [facility] Interpretation and review of laboratory results Normal [facility] Ketones (U) [Mass/Vol] Negative Negat jaciel mg/dL [facility] Leukocyte esterase Test strip Ql (U) Negative Negative Cathy/uL [facility] Nitrite Ql (U) Negative Negative [facility] pH (U) 6.5 [pH] 5.0 - 8.0 pH [facility] Protein (U) [Mass/Vol] Negative Negat jaciel mg/dL [facility] Specific gravity (U) [Rel density] 1.008 1.005 - 1.030 [facility] Urobilinogen (U) [Mass/Vol] Normal Normal (0-1) mg/dL [facility] Vital signson 10-29-2024 Heart rate 107 /min bpm [facility] XR Chest 2 Viewson Mild atelectasis in left lung base. Report Dictated on Electronically Signed By: Jt Munson MD Electronically Signed Date/Time: 10/29/2024 10:55 AM T [facility] Patient Name: SOMMER FRIEDMAN : 1940 Exam Date/Time: 10/29/2024 10:32 Procedure: XR CHEST 2 VIEWS Ordering Provider: ARAUJO NISHIT Reason For Exam: sob CHEST X-RAY PA/LATERAL CLINICAL INDICATION: sob TECHNIQUE: Frontal and lateral plain films of the chest were obtained. COMPARISON: October 17, 2024 FINDINGS: Cardiomediastinal silhouette: Normal Lungs: Mild atelectasis is again noted in the left lung base, unchanged Bones: Unremarkable Calcified breast prostheses are again noted. [facility] Jt Munson MD - 10/29/2024 Patient Name: SOMMER FRIEDMAN : 1940 [facility]#: [id number] Exam Date/Time: 10/29/2024 10:32 Procedure: XR CHEST 2 VIEWS Ordering Provider: ARAUJO NISHIT Reason For Exam: sob CHEST X-RAY PA/LATERAL CLINICAL INDICATION: sob TECHNIQUE: Frontal and lateral plain films of the chest were obtained. COMPARISON: October 17, 2024 FINDINGS: Cardiomediastinal silhouette: Normal Lungs: Mild atelectasis is again noted in the left lung base, unchanged Bones: Unremarkable Calcified breast prostheses are again noted. IMPRESSION: Mild atelectasis in left lung base. Report Dictated on Electronically Signed By: Jt Munson MD Electronically Signed Date/Time: 10/29/2024 10:55 AM EDT [facility] Radiology Study observation (narrative) [facility] XR Chest 2 ViewsOrdered By: Jt Munson on 10-29-2024 [facility] Work Phone: Anion gap in Serum or Plasma Ordered By: Kathi Juarez on 10-28-2024 Anion gap [Moles/Vol] 12 mmol/L 5-15 [facility] BUN/creatinine ratioOrdered By: Kathi Juarez on 10-28-2024 Urea nitrogen/Creatinine [Mass ratio] 20.8 mg/mg High 10-20 [facility] Carbon dioxide, total [Moles /volume] in Central venous bloodOrdered By: Kathi Juarez on 10-28-2024 CO2 [Moles/Vol] 21.0 mmol/L 21.0-32.0 [facility] Chloride assayOrdered By: Emir Juarez on 10-28-2024 Chloride [Moles/Vol] 106 mmol/L 98-108 [facility] Glomerular filtration rate ( GFR) estimation/1.73 sq m using serum, plasma, or whole bOrdered By: Kathi Juarez on 10-28-2024 GFR/1.73 sq M.predicted among non-blacks MDRD (S/P/Bld) [Vol rate/Area] 55 mL/min/{1.73_m2} Low >60 [facility] Comment on above: mL/min/1.73m2 CKD-EP I Creatinine Equation (2020) Potassium measurement (mass/ volume)Ordered By: Kathi Juarez on 10-28-2024 Potassium (Unsp spec) [Mass/Vol] 4.3 mmol/L 3.3-5.1 [facility] Serum creatinine measurement (mass/volume)Ordered By: Kathi Juarez on 10-28-2024 Creatinine [Mass/Vol] 1.02 mg/dL 0.70-1.20 [facility] Serum glucose measurement (m ass/volume)Ordered By: Kathi Juarez on 10-28-2024 Glucose [Mass/Vol] 103 mg/dL High 70-99 [facility] Serum or plasma calcium adam urement (mass/volume)Ordered By: Kathi Juarez on 10-28-2024 Calcium [Mass/Vol] 9.3 mg/dL 7.6-11.0 [facility] Serum or plasma urea nitroge n measurement (mass/volume)Ordered By: Kathi Juarez on 10-28-2024 Urea nitrogen [Mass/Vol] 21 mg/dL High 4-19 [facility] Sodium levelOrdered By: Fuentes Juarez on 10-28-2024 Sodium [Moles/Vol] 138 mmol/L 133-145 [facility] Anion gap in Serum or Plasma Ordered By: Kathi Juarez on 10-25-2024 Anion gap [Moles/Vol] 11 mmol/L 5-15 [facility] BUN/creatinine ratioOrdered By: Kathi Juarez on 10-25-2024 Urea nitrogen/Creatinine [Mass ratio] 18.5 mg/mg 10-20 [facility] Carbon dioxide, total [Moles /volume] in Central venous bloodOrdered By: Kathi Juarez on 10-25-2024 CO2 [Moles/Vol] 22.2 mmol/L 21.0-32.0 [facility] Chloride assayOrdered By: Emir Juarez on 10-25-2024 Chloride [Moles/Vol] 104 mmol/L 98-108 [facility] Erythrocyte distribution wid th ratioOrdered By: Kathi Juarez on 10-25-2024 Erythrocyte distribution width (RBC) [Ratio] 13.5 % 11.6-14.6 [facility] Erythrocyte distribution wid th standard deviationOrdered By: Kathi Juarez on 10-25-2024 Erythrocyte distribution width (RBC) [Ratio] 49.5 fl High 35.1-43.9 [facility] Glomerular filtration rate ( GFR) estimation/1.73 sq m using serum, plasma, or whole bOrdered By: Kathi Juarez on 10-25-2024 GFR/1.73 sq M.predicted among non-blacks MDRD (S/P/Bld) [Vol rate/Area] 53 mL/min/{1.73_m2} Low >60 [facility] Comment on above: mL/min/1.73m2 CKD-EP I Creatinine Equation (2020) Hematocrit Auto (Bld) [Volum e fraction]Ordered By: Kathi Juarez on 10-25-2024 Hematocrit (Bld) [Volume fraction] 41.2 % 37-47 [facility] Hemoglobin measurementOrdere d By: Kathi Juarez on 10-25-2024 Hemoglobin (Bld) [Mass/Vol] 13.3 g/dL 12.0-15.0 [facility] MCV (mean corpuscular volume ) determinationOrdered By: Kathi Juarez on 10-25-2024 MCV (RBC) [Entitic vol] 100.2 fL High 81-99 [facility] Mean corpuscular hemoglobin (MCH) determinationOrdered By: Kathi Juarez on 10-25-2024 MCH (RBC) [Entitic mass] 32.4 pg High 27.0-32.0 [facility] Mean corpuscular hemoglobin concentration (MCHC) determinationOrdered By: Kathi Juarez on 10-25-2024 MCHC (RBC) [Mass/Vol] 32.3 g/dL 32-36 [facility] Mean platelet volume determi nationOrdered By: Kathi Juarez on 10-25-2024 Platelet mean volume (Bld) [Entitic vol] 8.8 fL 6.2-12.0 [facility] No Panel InformationOrdered By: Kathi Juarez on 10-25-2024 Troponin T High Sensitivity 30 ng/L High <14 [facility] Platelet countOrdered By: Emir Juarez on 10-25-2024 Platelets (Bld) [#/Vol] 336 10*3/uL 150-450 [facility] Potassium measurement (mass/ volume)Ordered By: Kathi Juarez on 10-25-2024 Potassium (Unsp spec) [Mass/Vol] 4.0 mmol/L 3.3-5.1 [facility] RBC Auto (Bld) [#/Vol]Ordere d By: Kathi Juarez on 10-25-2024 RBC (Bld) [#/Vol] 4.11 10*6/uL Low 4.2-5.4 [facility] Serum creatinine measurement (mass/volume)Ordered By: Kathi Juarez on 10-25-2024 Creatinine [Mass/Vol] 1.05 mg/dL 0.70-1.20 [facility] Serum glucose measurement (m ass/volume)Ordered By: Kathi Juarez on 10-25-2024 Glucose [Mass/Vol] 80 mg/dL 70-99 [facility] Serum or plasma calcium adam urement (mass/volume)Ordered By: Kathi Juarez on 10-25-2024 Calcium [Mass/Vol] 9.6 mg/dL 7.6-11.0 [facility] Serum or plasma urea nitroge n measurement (mass/volume)Ordered By: Kathi Juarez on 10-25-2024 Urea nitrogen [Mass/Vol] 19 mg/dL 4-19 [facility] Sodium levelOrdered By: Fuentes Juarez on 10-25-2024 Sodium [Moles/Vol] 137 mmol/L 133-145 [facility] White blood cell (WBC) count Ordered By: Kathi Juarez on 10-25-2024 WBC (Bld) [#/Vol] 8.2 10*3/uL 4.4-11.0 [facility] ED Nursing Noteon 10-24-2024 ED Nursing Note 13/03 Medical Transport here to transport pt back to [facility]. Pt has been very anxious to go back to the facility, no repeat VS obtained. Normal [facility] ED Nursing Note Pt yelling in room, RN and medic to room. Pt stating she is getting pissed about being here. Pt states she wants to go home to the SNF and go back to her room. She states she is only here because she forgot something. Reassurance given. Normal [facility] ED Nursing Note Normal [facility] ED Provider Noteon ED Provider Note Normal [facility] Laboratory - Chemistry and C hemistry - challengeon 10-24-2024 Glucose [Mass/Vol] 116 mg/dL High 70 - 100 mg/dL [facility] No Panel Informationon 10-24 Interpretation and review of laboratory results Abnormal [facility] Performed by: [facility], [address] [place] [address] CLIA ID: [id number] [facility] Anion gap in Serum or Plasma Ordered By: [facility] on 10-23-2024 Anion gap [Moles/Vol] 12 mmol/L 5-15 [facility] BUN/creatinine ratioOrdered By: [facility] on 10-23-2024 Urea nitrogen/Creatinine [Mass ratio] 17.3 mg/mg 10-20 [facility] Bilirubin directOrdered By: [facility] on 10-23-2024 Bilirubin.direct [Mass/Vol] 0.16 mg/dL 0.00-0.30 [facility] Bilirubin, totalOrdered By: [facility] on 10-23-2024 Bilirubin [Mass/Vol] 0.32 mg/dL 0.00-1.30 [facility] Carbon dioxide, total [Moles /volume] in Central venous bloodOrdered By: [facility] on 10-23-2024 CO2 [Moles/Vol] 20.0 mmol/L Low 21.0-32.0 [facility] Chloride assayOrdered By: [facility] on 10-23-2024 Chloride [Moles/Vol] 105 mmol/L 98-108 [facility] Erythrocyte distribution wid th ratioOrdered By: [facility] on 10-23-2024 Erythrocyte distribution width (RBC) [Ratio] 13.8 % 11.6-14.6 [facility] Erythrocyte distribution wid th standard deviationOrdered By: [facility] on 10-23-2024 Erythrocyte distribution width (RBC) [Ratio] 51.0 fl High 35.1-43.9 [facility] Glomerular filtration rate ( GFR) estimation/1.73 sq m using serum, plasma, or whole bOrdered By: [facility] on 10-23-2024 GFR/1.73 sq M.predicted among non-blacks MDRD (S/P/Bld) [Vol rate/Area] 58 mL/min/{1.73_m2} Low >60 [facility] Comment on above: mL/min/1.73m2 CKD-EP I Creatinine Equation (2020) Hematocrit Auto (Bld) [Volum e fraction]Ordered By: [facility] on 10-23-2024 Hematocrit (Bld) [Volume fraction] 37.9 % 37-47 [facility] Hemoglobin measurementOrdere d By: [facility] on 10-23-2024 Hemoglobin (Bld) [Mass/Vol] 12.2 g/dL 12.0-15.0 [facility] Laboratory - Chemistry and C hemistry - challengeOrdered By: [facility] on 10-23-2024 AST [Catalytic activity/Vol] 22 U/L <32 [facility] MCV (mean corpuscular volume ) determinationOrdered By: [facility] on 10-23-2024 MCV (RBC) [Entitic vol] 101.3 fL High 81-99 [facility] Mean corpuscular hemoglobin (MCH) determinationOrdered By: [facility] on 10-23-2024 MCH (RBC) [Entitic mass] 32.6 pg High 27.0-32.0 [facility] Mean corpuscular hemoglobin concentration (MCHC) determinationOrdered By: [facility] on 10-23-2024 MCHC (RBC) [Mass/Vol] 32.2 g/dL 32-36 [facility] Mean platelet volume determi nationOrdered By: [facility] on 10-23-2024 Platelet mean volume (Bld) [Entitic vol] 8.8 fL 6.2-12.0 [facility] Platelet countOrdered By: Juan [facility] on 10-23-2024 Platelets (Bld) [#/Vol] 310 10*3/uL 150-450 [facility] Potassium measurement (mass/ volume)Ordered By: [facility] on 10-23-2024 Potassium (Unsp spec) [Mass/Vol] 4.0 mmol/L 3.3-5.1 [facility] RBC Auto (Bld) [#/Vol]Ordere d By: [facility] on 10-23-2024 RBC (Bld) [#/Vol] 3.74 10*6/uL Low 4.2-5.4 [facility] Serum creatinine measurement (mass/volume)Ordered By: [facility] on 10-23-2024 Creatinine [Mass/Vol] 0.97 mg/dL 0.70-1.20 [facility] Serum globulin measurementOr dered By: [facility] on 10-23-2024 Globulin (S) [Mass/Vol] 3.0 g/dL 2.2-4.2 [facility] Serum glucose measurement (m ass/volume)Ordered By: [facility] on 10-23-2024 Glucose [Mass/Vol] 99 mg/dL 70-99 [facility] Serum or plasma alanine jiang otransferase (ALT) measurementOrdered By: [facility] on 10-23-2024 ALT [Catalytic activity/Vol] 14 U/L <35 [facility] Serum or plasma albumin adam urement (mass/volume)Ordered By: [facility] on 10-23-2024 Albumin [Mass/Vol] 3.6 g/dL 3.4-4.8 [facility] Serum or plasma alkaline herminio sphatase measurementOrdered By: [facility] on 10-23-2024 ALP [Catalytic activity/Vol] 70 U/L 35-104 [facility] Serum or plasma calcium adam urement (mass/volume)Ordered By: [facility] on 10-23-2024 Calcium [Mass/Vol] 9.4 mg/dL 7.6-11.0 [facility] Serum or plasma urea nitroge n measurement (mass/volume)Ordered By: [facility] on 10-23-2024 Urea nitrogen [Mass/Vol] 17 mg/dL 4-19 [facility] Sodium levelOrdered By: [facility] on 10-23-2024 Sodium [Moles/Vol] 137 mmol/L 133-145 [facility] Total proteinOrdered By: [facility] on 10-23-2024 Protein [Mass/Vol] 6.7 g/dL 5.9-8.4 [facility] White blood cell (WBC) count Ordered By: [facility] on 10-23-2024 WBC (Bld) [#/Vol] 5.9 10*3/uL 4.4-11.0 [facility] [id number] 10-19-2024 [id number] Normal [facility] [id number] Normal [facility] BASIC METABOLIC PANELon Anion gap [Moles/Vol] 7 mmol/L Normal 3-13 [facility] Comment on above: Performed By: #### L AB15 ####[employer] Supervisor: ROSETTE ZHAO ([phone])[facility] [place] ([facility])[address] Calcium [Mass/Vol] 8.6 mg/dL Low 8.8-10.0 [facility] Comment on above: Performed By: #### L AB15 ####[employer] Supervisor: ROSETTE ZHAO ([phone])[facility] [place] ([facility])[address] Chloride [Moles/Vol] 109 mmol/L High 98-107 [facility] Comment on above: Performed By: #### L AB15 ####[employer] Supervisor: ROSETTE ZHAO ([phone])[facility] [place] ([facility])[address] CO2 [Moles/Vol] 20 mmol/L Low 23-31 [facility] Comment on above: Performed By: #### L AB15 ####[employer] Supervisor: ROSETTE ZHAO ([phone])[facility] [place] ([facility])[address] Creatinine [Mass/Vol] 0.78 mg/dL Normal 0.57-1.11 [facility] Comment on above: Performed By: #### L AB15 ####[employer] Supervisor: ROSETTE ZHAO ([phone])[facility] [place] ([facility])[address] GLOMERULAR FILTRATION RATE ML/MIN/1.73 SQ M.PREDICTED 75.9 mL/min/1.73m*2 Normal >60.0 [facility] Comment on above: Result Comment: Calc ulation based on the Chronic Kidney Disease Epidemiology Collaboration (CKD-EPI) equation refit without adjustment for race Performed By: #### L AB15 ####[employer] Supervisor: ROSETTE ZHAO ([phone])[facility] ([facility])[address] [place] [address] Glucose [Mass/Vol] 111 mg/dL Normal 82-115 [facility] Comment on above: Performed By: #### L AB15 ####[employer] Supervisor: ROSETTE ZHAO ([phone])[facility] ([facility])[address] [place] [address] Potassium [Moles/Vol] 3.6 mmol/L Normal 3.5-5.1 [facility] Comment on above: Result Comment: [facility] potassium values may be up to 0.5 mmol/L lower than serum values. Performed By: #### L AB15 ####[employer] Supervisor: ROSETTE ZHAO ([phone])[facility] ([facility])[address] [place] [address] Sodium [Moles/Vol] 136 mmol/L Normal 136-145 [facility] Comment on above: Performed By: #### L AB15 ####[employer] Supervisor: ROSETTE ZHAO ([phone])[facility])[address] [place] [address] Urea nitrogen [Mass/Vol] 22 mg/dL Normal 9-23 [facility] Comment on above: Performed By: #### L AB15 ####[employer] Supervisor: ROSETTE ZHAO ([phone])[facility])[address] [place] [address] Bacteria identified Cx Nom ( U)Ordered By: Sven Samuel on 10-19-2024 Interpretation and review of laboratory results Abnormal [facility] Basic metabolic 1998 panelon 10-19-2024 Anion gap [Moles/Vol] 7 mmol/L 3 - 13 mmol/L [facility] Calcium [Mass/Vol] 8.6 mg/dL Low 8.8 - 10. 0 mg/dL [facility] Chloride [Moles/Vol] 109 mmol/L High 98 - 10 7 mmol/L [facility] CO2 [Moles/Vol] 20 mmol/L Low 23 - 31 mmol/L [facility] Creatinine [Mass/Vol] 0.78 mg/dL 0.57 - 1.11 mg/dL [facility] GFR/1.73 sq M.predicted (S/P/Bld) [Vol rate/Area] 75.9 mL/min - PINF [facility] Comment on above: Calculation based on the Chronic Kidney Disease Epidemiology Collaboration (CKD-EPI) equation refit without adjustment for race Glucose [Mass/Vol] 111 mg/dL 82 - 115 mg/dL [facility] Interpretation and review of laboratory results Abnormal [facility] th Potassium [Moles/Vol] 3.6 mmol/L 3.5 - 5.1 mmol/L [facility] Comment on above: Plasma potassium morro ues may be up to 0.5 mmol/L lower than serum values. Sodium [Moles/Vol] 136 mmol/L 136 - 145 mmol/L [facility] Urea nitrogen [Mass/Vol] 22 mg/dL 9 - 23 mg/d L [facility] CBC (HEMOGRAM)on 10-19-2024 Erythrocyte distribution width (RBC) [Ratio] 13.3 % Normal 11.5-15.0 [facility] Comment on above: Performed By: #### L [id number] ####[employer] Supervisor: ROSETTE ZHAO ([phone])[facility] [place] [address] Hematocrit (Bld) [Volume fraction] 36.8 % Normal 35.0-47.0 [facility] Comment on above: Performed By: #### L [id number] ####[employer] Supervisor: ROSETTE ZHAO ([phone])[facility] ([facility])[address] [place] [address] Hemoglobin (Bld) [Mass/Vol] 12.0 g/dL Normal 11.7-16.0 [facility] Comment on above: Performed By: #### L [id number] ####[employer] Supervisor: ROSETTE ZHAO ([phone])[facility] ([facility])[address] MCH (RBC) [Entitic mass] 32.2 pg Normal 26.0-34.0 [facility] Comment on above: Performed By: #### L [id number] ####[employer] Supervisor: ROSETTE ZHAO ([phone])[facility] MCEKON[facility]ACELI ([facility])[address] MCHC 32.6 % Normal 30.5-36.0 [facility] Comment on above: Performed By: #### L AB294 ####[employer] Supervisor: ROSETTE ZHAO ([phone])[facility] ([facility])[address] MCV (RBC) [Entitic vol] 98.7 fL Normal 77.0-99.0 S [facility] Comment on above: Performed By: #### L [id number] ####[employer] Supervisor: ROSETTE ZHAO ([phone])[facility] ([facility])[address] Platelet mean volume (Bld) [Entitic vol] 9.2 fL Normal 9.0-12.7 [facility] Comment on above: Performed By: #### L [id number] ####[employer] Supervisor: ROSETTE ZHAO ([phone])[facility] ([facility])[address] Platelets (Bld) [#/Vol] 296 10*3/uL Normal 140-440 [facility] Comment on above: Performed By: #### L [id number] ####[employer] Supervisor: ROSETTE ZHAO ([phone])[facility] ([facility])[address] RBC (Bld) [#/Vol] 3.73 10*6/uL Low 3.80-5.20 [facility] Comment on above: Performed By: #### L AB294 ####[employer] Supervisor: ROSETTE ZHAO ([phone])[facility] ([facility])[address] [place] [address] WBC (Bld) [#/Vol] 5.7 10*3/uL Normal 3.6-10.7 [facility] Comment on above: Performed By: #### L AB294 ####[employer] Supervisor: ROSETTE ZHAO ([phone])[facility] ([facility])[address] [place] [address] CBC panel Auto (Bld)Ordered By: Nasim gA on 10-19-2024 Erythrocyte distribution width (RBC) [Ratio] 13.3 % 11.5 - 15.0 % [facility] Hematocrit (Bld) [Volume fraction] 36.8 % 35.0 - 47.0 % [facility] Hemoglobin (Bld) [Mass/Vol] 12 g/dL 11.7 - 16.0 g/dL [facility] Interpretation and review of laboratory results Abnormal [facility] MCH (RBC) [Entitic mass] 32.2 pg 26. 0 - 34.0 pg [facility] MCHC (RBC) [Mass/Vol] 32.6 % 30.5 - 36.0 % [facility] MCV (RBC) [Entitic vol] 98.7 fL 77.0 - 99.0 fL [facility] Platelet mean volume (Bld) [Entitic vol] 9.2 fL 9.0 - 12.7 fL [facility] Platelets (Bld) [#/Vol] 296 10*3/uL 140 - 440 10*3/uL [facility] RBC (Bld) [#/Vol] 3.73 10*6/uL Low 3.80 - 5.2 0 10*6/uL [facility] WBC (Bld) [#/Vol] 5.7 10*3/uL 3.6 - 10.7 10*3/uL [facility] Laboratory - Microbiology an d Antimicrobial susceptibilityOrdered By: Sven Samuel on 10-19-2024 Bacteria identified Cx Nom (U) >100,000 CFU/mL Proteus mirabilis Abnormal [facility] Nursing Noteon 10-19-2024 Nursing Note Report called Nilam at [facility]. Normal [facility] Nursing Note Message left at [facility] for nurse to call back to get report on patient. Will be awaiting return phone call. 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 Normal [facility] Nursing Note Heart monitor removed per nursing protocol. Cleaned, and returned to tele 21. Normal [facility] Nursing Note Return call from son. He will be in shortly. Patient updated. Normal [facility] Nursing Note Attempt to call patient's son Parris, on behalf of patient. No answer, no message left at this time. Normal [facility] Progress Noteon 10-19-2024 Progress Note Normal [facility] Progress Note Nutrition rescreen completed. Chart reviewed. Patient to be monitored and followed by the diet research technician. Normal [facility] [id number] 10-18-2024 [id number] [facility] BASIC METABOLIC PANELon 09-22 Anion gap [Moles/Vol] 10 mmol/L Normal 3-13 [facility] Comment on above: Performed By: #### L AB103, LAB15 ####[employer] Supervisor: ROSETTE ZHAO ([phone])[facility] ([facility])[address] [place] [address] Calcium [Mass/Vol] 8.8 mg/dL Normal 8.8-10.0 [facility] Comment on above: Performed By: #### L AB103, LAB15 ####[employer] Supervisor: ROSETTE ZHAO ([phone])[facility] ([facility])[address] [place] [address] [place] Chloride [Moles/Vol] 105 mmol/L Normal 98-107 [facility] Comment on above: Performed By: #### L AB103, LAB15 ####[employer] Supervisor: ROSETTE ZHAO ([phone])[facility] ([facility])[address] [place] [address] [place] CO2 [Moles/Vol] 21 mmol/L Low 23-31 [facility] Comment on above: Performed By: #### L AB103, LAB15 ####[employer] Supervisor: ROSETTE ZHAO ([phone])[facility] Creatinine [Mass/Vol] 0.99 mg/dL Normal 0.57-1.11 [facility] Comment on above: Performed By: #### L AB103, LAB15 ####[employer] Supervisor: ROSETTE ZHAO ([phone])[facility] GLOMERULAR FILTRATION RATE ML/MIN/1.73 SQ M.PREDICTED 57.0 mL/min/1.73m*2 Low >60.0 [facility] Comment on above: Result Comment: Calc ulation based on the Chronic Kidney Disease Epidemiology Collaboration (CKD-EPI) equation refit without adjustment for race Performed By: #### L AB103, LAB15 ####[employer] Supervisor: ROSETTE ZHAO ([phone])[facility] Glucose [Mass/Vol] 120 mg/dL High 82-115 [facility] Comment on above: Performed By: #### L AB103, LAB15 ####[employer] Supervisor: ROSETTE ZHAO ([phone])[facility] ([facility])[address] Potassium [Moles/Vol] 4.0 mmol/L Normal 3.5-5.1 [facility] Comment on above: Result Comment: [facility] potassium values may be up to 0.5 mmol/L lower than serum values. Performed By: #### L AB103, LAB15 ####[employer] Supervisor: ROSETTE ZHAO ([phone])[facility])[address] [place] [address] [place] Sodium [Moles/Vol] 136 mmol/L Normal 136-145 [facility] Comment on above: Performed By: #### L AB103, LAB15 ####[employer] Supervisor: ROSETTE ZHAO ([phone])[facility] ([facility])[address] Urea nitrogen [Mass/Vol] 26 mg/dL High 9-23 [facility] Comment on above: Performed By: #### L AB103, LAB15 ####[employer] Supervisor: ROSETTE ZHAO ([phone])[facility] ([facility])[address] Anion gap [Moles/Vol] 7 mmol/L Normal 3-13 [facility] Comment on above: Performed By: #### L AB15, [id number] ####[employer] Supervisor: ROSETTE ZHAO ([phone])[facility] ([facility])[address] Calcium [Mass/Vol] 5.4 mg/dL Critically low 8.8-10.0 [facility] Comment on above: Performed By: #### L AB15, [id number] ####[employer] Supervisor: ROSETTE ZHAO ([phone])[facility] ([facility])[address] Chloride [Moles/Vol] 120 mmol/L High 98-107 [facility] Comment on above: Performed By: #### L AB15, [id number] ####[employer] Supervisor: ROSETTE ZHAO ([phone])[facility] ([facility])[address] [place] [address] [place] CO2 [Moles/Vol] 14 mmol/L Low 23-31 [facility] Comment on above: Performed By: #### L AB15, [id number] ####[employer] Supervisor: ROSETTE ZHAO ([phone])[facility] [place] ([facility])[address] Creatinine [Mass/Vol] 0.61 mg/dL Normal 0.57-1.11 [facility] Comment on above: Performed By: #### L AB15, [id number] ####[employer] Supervisor: ROSETTE ZHAO ([phone])[facility] ([facility])[address] GLOMERULAR FILTRATION RATE ML/MIN/1.73 SQ M.PREDICTED 89.4 mL/min/1.73m*2 Normal >60.0 [facility] Comment on above: Result Comment: Calc ulation based on the Chronic Kidney Disease Epidemiology Collaboration (CKD-EPI) equation refit without adjustment for race Performed By: #### L AB15, [id number] ####[employer] Supervisor: ROSETTE ZHAO ([phone])[facility] ([facility])[address] Glucose [Mass/Vol] 79 mg/dL Low 82-115 [facility] Comment on above: Performed By: #### L AB15, [id number] ####[employer] Supervisor: ROSETTE ZHAO ([phone])[facility] ([facility])[address] Potassium [Moles/Vol] 2.6 mmol/L Critically low 3.5-5.1 [facility] Comment on above: Result Comment: [facility] potassium values may be up to 0.5 mmol/L lower than serum values. Performed By: #### L AB15, [id number] ####[employer] Supervisor: ROSETTE ZHAO ([phone])[facility] ([facility])[address] Sodium [Moles/Vol] 141 mmol/L Normal 136-145 [facility] [facility] Comment on above: Performed By: #### L AB15, [id number] ####[employer] Supervisor: ROSETTE ZHAO ([phone])[facility] ([facility])[address] [place] [address] [place] Urea nitrogen [Mass/Vol] 18 mg/dL Normal 9-23 [facility] Comment on above: Performed By: #### L AB15, [id number] ####[employer] Supervisor: ROSETTE ZHAO ([phone])[facility] ([facility])[address] Basic metabolic 1998 panelOr dered By: Trista Gtz on 10-18-2024 Anion gap [Moles/Vol] 10 mmol/L 3 - 13 mmol/L [facility] Calcium [Mass/Vol] 8.8 mg/dL 8.8 - 10. 0 mg/dL [facility] Chloride [Moles/Vol] 105 mmol/L 98 - 10 7 mmol/L [facility] CO2 [Moles/Vol] 21 mmol/L Low 23 - 31 mmol/L [facility] Creatinine [Mass/Vol] 0.99 mg/dL 0.57 - 1.11 mg/dL [facility] GFR/1.73 sq M.predicted (S/P/Bld) [Vol rate/Area] 57 mL/min Low - PINF [facility] Comment on above: Calculation based on the Chronic Kidney Disease Epidemiology Collaboration (CKD-EPI) equation refit without adjustment for race Glucose [Mass/Vol] 120 mg/dL High 82 - 115 mg/dL [facility] Interpretation and review of laboratory results Abnormal [facility] Potassium [Moles/Vol] 4 mmol/L 3.5 - 5.1 mmol/L [facility] Comment on above: Plasma potassium morro ues may be up to 0.5 mmol/L lower than serum values. Sodium [Moles/Vol] 136 mmol/L 136 - 145 mmol/L [facility] Urea nitrogen [Mass/Vol] 26 mg/dL High 9 - 23 mg/d L [facility] Basic metabolic 1998 panelOr dered By: Nina Love on 10-18-2024 Anion gap [Moles/Vol] 7 mmol/L 3 - 13 mmol/L [facility] Calcium [Mass/Vol] 5.4 mg/dL Critically low 8.8 - 1 0.0 mg/dL [facility] Chloride [Moles/Vol] 120 mmol/L High 98 - 10 7 mmol/L [facility] CO2 [Moles/Vol] 14 mmol/L Low 23 - 31 mmol/L [facility] Creatinine [Mass/Vol] 0.61 mg/dL 0.57 - 1.11 mg/dL [facility] GFR/1.73 sq M.predicted (S/P/Bld) [Vol rate/Area] 89.4 mL/min - PINF [facility] Comment on above: Calculation based on the Chronic Kidney Disease Epidemiology Collaboration (CKD-EPI) equation refit without adjustment for race Glucose [Mass/Vol] 79 mg/dL Low 82 - 115 mg/dL [facility] Interpretation and review of laboratory results Abnormal [facility] th Potassium [Moles/Vol] 2.6 mmol/L Critically low 3.5 - 5.1 mmol/L [facility] Comment on above: Plasma potassium morro ues may be up to 0.5 mmol/L lower than serum values. Sodium [Moles/Vol] 141 mmol/L 136 - 145 mmol/L [facility] Urea nitrogen [Mass/Vol] 18 mg/dL 9 - 23 mg/d L [facility] CBC (HEMOGRAM)on 10-18-2024 Erythrocyte distribution width (RBC) [Ratio] 13.3 % Normal 11.5-15.0 [facility] Comment on above: Performed By: #### L [id number] ####[employer] Supervisor: ROSETTE ZHAO ([phone])[facility] ([facility])[address] [place] [address] Hematocrit (Bld) [Volume fraction] 27.7 % Low 35.0-47.0 [facility] Comment on above: Performed By: #### L [id number] ####[employer] Supervisor: ROSETTE ZHAO ([phone])[facility] ([facility])[address] [place] [address] Hemoglobin (Bld) [Mass/Vol] 8.9 g/dL Low 11.7-16.0 [facility] Comment on above: Performed By: #### L [id number] ####[employer] Supervisor: ROSETTE ZHAO ([phone])[facility] MCH (RBC) [Entitic mass] 32.4 pg Normal 26.0-34.0 [facility] Comment on above: Performed By: #### L [id number] ####[employer] Supervisor: ROSETTE ZHAO ([phone])[facility] MCHC 32.1 % Normal 30.5-36.0 [facility] Comment on above: Performed By: #### L [id number] ####[employer] Supervisor: ROSETTE PAVEL ([phone])[facility] ([facility]AB)[address] MCV (RBC) [Entitic vol] 100.7 fL High 77.0-99.0 S [facility] Comment on above: Performed By: #### L [id number] ####[employer] Supervisor: ROSETTE HUMPHREYSJONNIE ([phone])[facility] [place] ([facility])[address] Platelet mean volume (Bld) [Entitic vol] 8.9 fL Low 9.0-12.7 [facility] Comment on above: Performed By: #### L [id number] ####[employer] Supervisor: ROSETTE PAVEL ([phone])[facility] S[facility]THYamilet [place] (SB[facility]AB)[address] Platelets (Bld) [#/Vol] 215 10*3/uL Normal 140-440 [facility] Comment on above: Performed By: #### L [id number] ####[employer] Supervisor: ROSETTE HUMPHREYSJONNIE ([phone])[facility] [place] ([facility])[address] RBC (Bld) [#/Vol] 2.75 10*6/uL Low 3.80-5.20 [facility] Comment on above: Performed By: #### L [id number] ####[employer] Supervisor: ROSETTE MONTALVOVIK ([phone])[facility] [place] ([facility])[address] WBC (Bld) [#/Vol] 5.1 10*3/uL Normal 3.6-10.7 [facility] Comment on above: Performed By: #### L [id number] ####[employer] Supervisor: ROSETTE MONTALVOVIK ([phone])[facility] [place] ([facility]HLAB)[address] CBC panel Auto (Bld)Ordered By: Babar Vang on 10-18-2024 Erythrocyte distribution width (RBC) [Ratio] 13.3 % 11.5 - 15.0 % [facility] Hematocrit (Bld) [Volume fraction] 27.7 % Low 35.0 - 47.0 % [facility] Hemoglobin (Bld) [Mass/Vol] 8.9 g/dL Low 11.7 - 16.0 g/dL [facility] Interpretation and review of laboratory results Abnormal [facility] MCH (RBC) [Entitic mass] 32.4 pg 26. 0 - 34.0 pg [facility] MCHC (RBC) [Mass/Vol] 32.1 % 30.5 - 36.0 % [facility] MCV (RBC) [Entitic vol] 100.7 fL High 77.0 - 99.0 fL [facility] Platelet mean volume (Bld) [Entitic vol] 8.9 fL Low 9.0 - 12.7 fL [facility] Platelets (Bld) [#/Vol] 215 10*3/uL 140 - 440 10*3/uL [facility] RBC (Bld) [#/Vol] 2.75 10*6/uL Low 3.80 - 5.2 0 10*6/uL [facility] WBC (Bld) [#/Vol] 5.1 10*3/uL 3.6 - 10.7 10*3/uL [facility] Laboratory - Chemistry and C hemistry - challengeon 10-18-2024 Magnesium [Mass/Vol] 1.9 mg/dL 1.6 - 2 .6 mg/dL [facility] Magnesium [Mass/Vol] 1.2 mg/dL Low 1.6 - 2 .6 mg/dL [facility] MAGNESIUMon 10-18-2024 Magnesium [Mass/Vol] 1.9 mg/dL Normal 1.6-2.6 [facility] Comment on above: Result Comment: HUSSAIN Bhatt COMMENTS:Higher values can be expected in females during menses. Performed By: #### L AB103, LAB15 ####[employer] Supervisor: ROSETTE ZHAO ([phone])[facility] ([facility])[address] [place] [address] Magnesium [Mass/Vol] 1.2 mg/dL Low 1.6-2.6 [facility] Comment on above: Result Comment: HUSSAIN Bhatt COMMENTS:Higher values can be expected in females during menses. Performed By: #### L AB15, [id number] ####[employer] Supervisor: ROSETTE ZHAO ([phone])[facility] ([facility])[address] [place] [address] Magnesium [Mass/Vol]on 10-18 Interpretation and review of laboratory results Normal [facility] Higher values can be expected in females during menses. [facility] Interpretation and review of laboratory results Abnormal [facility] Higher values can be expected in females during menses. [facility] Progress Noteon 10-18-2024 Progress Note Normal [facility] US Heart TransthoracicOrdere d By: Casey Eller on 10-18-2024 Aortic Sinus Valsalva 3.7 cm [facility] Work Phone: Aortic Sinus Valsalva Index 2.26 cm/m2 [facility] Work Phone: Aortic valve Mean systole pressure gradient by US.doppler derived full Bernoulli 1 mmHg [facility] Work Phone: Aortic valve Orifice area by US 3.1 cm2 [facility] Work Phone: Aortic valve Peak systolic flow by US.doppler 0.6 m/s [facility] Work Phone: AR Max Velocity PISA 3.6 m/s [facility] Work Phone: AR PHT 660.9 ms [facility] Work Phone: Ascending Aorta 3.3 cm [facility] Work Phone: Ascending Aorta Index 2.01 cm/m2 [facility] Work Phone: AV Area by Peak Velocity 2.4 cm2 [facility] Work Phone: AV Area by VTI 2.2 cm2 [facility] Work Phone: AV Peak Gradient 3 mmHg [facility] Work Phone: AV Peak Velocity 0.8 m/s [facility] Work Phone: AV Velocity Ratio 0.75 [facility] Work Phone: AV VTI 15.5 cm [facility] Work Phone: MISA/BSA Peak Velocity 1.5 cm2/m2 [facility] Work Phone: MISA/BSA VTI 1.3 cm2/m2 [facility] Work Phone: Est. RA Pressure 15 mmHg [facility] Work Phone: Fractional Shortening 2D 32 % 28 - 44 % [facility] Work Phone: Interpretation and review of laboratory results Abnormal [facility] Work Phone: IVC Diameter 2.5 cm [facility] Work Phone: IVSd 1.2 cm Abnormal 0.6 - 0.9 cm [facility] Work Phone: [phone] LA Diameter 4.5 cm [facility] Work Phone: [phone] LA Size Index 2.74 cm/m2 [facility] Work Phone: LA Volume 2C 75 mL Abnormal 22 - 52 mL [facility] Work Phone: LA Volume 4C 67 mL Abnormal 22 - 52 mL [facility] Work Phone: LA Volume A/L 77 mL [facility] Work Phone: [phone] LA Volume BP 73 mL Abnormal 22 - 52 mL [facility] Work Phone: [phone] LA Volume Index 2C 46 mL/m2 Abnormal 16 - 34 mL/m2 [facility] Work Phone: LA Volume Index 4C 41 mL/m2 Abnormal 16 - 34 mL/m2 [facility] Work Phone: LA Volume Index A/L 47 mL/m2 16 - 34 mL/m2 [facility] Work Phone: LA Volume Index BP 45 ml/m2 Abnormal 16 - 34 ml/m2 [facility] Work Phone: Left ventricular Ejection fraction by US.2D+Calculated by biplane method of disks 62 % 55 - 100 % [facility] Work Phone: LV EDV A2C 36 mL [facility] Work Phone: LV EDV A4C 34 mL [facility] Work Phone: LV EDV BP 36 mL Abnormal 56 - 104 mL [facility] Work Phone: LV EDV Index A2C 22 mL/m2 [facility] Work Phone: LV EDV Index A4C 21 mL/m2 [facility] Work Phone: LV EDV Index BP 22 mL/m2 [facility] Work Phone: LV Ejection Fraction A2C 65 % [facility] Work Phone: LV Ejection Fraction A4C 58 % [facility] Work Phone: LV ESV A2C 13 mL [facility] Work Phone: LV ESV A4C 14 mL [facility] Work Phone: LV ESV BP 14 mL Abnormal 19 - 49 mL [facility] Work Phone: LV ESV Index A2C 8 mL/m2 [facility] Work Phone: LV ESV Index A4C 9 mL/m2 [facility] Work Phone: LV ESV Index BP 9 mL/m2 [facility] Work Phone: LV Mass 2D 212 g Abnormal 67 - 162 g [facility] Work Phone: LV Mass 2D Index 129.3 g/m2 Abnormal 43 - 95 g/m2 [facility] Work Phone: LV RWT Ratio 0.51 [facility] Work Phone: LVIDd 4.7 cm 3.9 - 5.3 cm [facility] Work Phone: LVIDd Index 2.87 cm/m2 [facility] Work Phone: LVIDs 3.2 cm [facility] Work Phone: LVIDs Index 1.95 cm/m2 [facility] Work Phone: LVOT Cardiac Output 3 liter/minute [facility] Work Phone: LVOT Diameter 2 cm [facility] Work Phone: LVOT Mean Gradient 1 mmHg [facility] Work Phone: LVOT Peak Gradient 2 mmHg [facility] Work Phone: LVOT Peak Velocity 0.6 m/s [facility] Work Phone: LVOT Stroke Volume Index 20.7 mL/m2 [facility] Work Phone: LVOT SV 33.9 ml [facility] Work Phone: LVOT VTI 10.8 cm [facility] Work Phone: LVOT:AV VTI Index 0.7 [facility] Work Phone: LVPWd 1.2 cm Abnormal 0.6 - 0.9 cm [facility] Work Phone: RA Area 4C 94.8 mL [facility] Work Phone: RA Area 4C 90 mL [facility] Work Phone: RV Basal Dimension 4.4 cm [facility] Work Phone: RV Mid Dimension 3.2 cm [facility] Work Phone: RVSP 47 mmHg [facility] Work Phone: Sinotubular Junction 3.1 cm [facility] Work Phone: TR Max Velocity 2.81 m/s [facility] Work Phone: TR Peak Gradient 32 mmHg [facility] Work Phone: TR Peak Velocity PISA 2.1 m/s [facility] Work Phone: TR VTI 65.3 cm [facility] Work Phone: TV EROA 0.2 cm2 [facility] Work Phone: TV Nyquist Velocity 36 cm/s [facility] Work Phone: [facility] Work Phone: Heart Transthoracicon Left Ventricle: Left ventricle size is normal. Mildly increased wall thickness. Mass index 2D is 129.3 g/m2. Findings consistent with mild concentric hypertrophy. Normal left ventricular systolic function. EF by 2D Simpsons Biplane is 62%. Normal wall motion. Right Ventricle: Right ventricle is moderately dilated. Normal systolic function. Aortic Valve: Trileaflet. Mild (1+) regurgitation with an eccentrically directed jet. No stenosis. Tricuspid Valve: No leaflet thickening. Moderate (2+) regurgitation. Moderately elevated RVSP. RVSP is 47 mmHg. Left Atrium: Left atrium is moderately dilated. LA Vol Index A/L is 47 mL/m2. Right Atrium: Right atrium is moderately dilated. IVC/SVC: IVC diameter is dilated and decreases less than 50% during inspiration; therefore the estimated right atrial pressure is elevated (~15 mmHg). Left Ventricle Left ventricle size is normal. Mildly increased wall thickness. Mass index 2D is 129.3 g/m2. Findings consistent with mild concentric hypertrophy. Normal left ventricular systolic function. EF by 2D Simpsons Biplane is 62%. Normal wall motion. Right Ventricle Right ventricle is moderately dilated. Normal systolic function. Left Atrium Left atrium is moderately dilated. LA Vol Index A/L is 47 mL/m2. Right Atrium Right atrium is moderately dilated. IVC/SVC IVC diameter is dilated and decreases less than 50% during inspiration; therefore the estimated right atrial pressure is elevated (~15 mmHg). Mitral Valve Valve structure is normal. Trace regurgitation. No stenosis noted. Tricuspid Valve No leaflet thickening. Moderate (2+) regurgitation. Moderately elevated RVSP. RVSP is 47 mmHg. Aortic Valve Trileaflet. Mild (1+) regurgitation with an eccentrically directed jet. No stenosis. Pulmonic Valve Valve structure is normal. Trace regurgitation. Pericardium No pericardial effusion. Septum No interatrial shunt visualized on color Doppler. Study Details Image quality: fair. Heart rate: 94 bpm. Blood pressure: 155/77 mmHg. No contrast was given. Pt. Has Breast Implants CV CPACS BASIC METABOLIC PANELon - Anion gap [Moles/Vol] 9 mmol/L Normal 3-13 [facility] Comment on above: Performed By: #### L AB20, LAB99, LAB15, [id number] ####[employer] Supervisor: ROSETTE ZHAO ([phone])[facility] ([facility])[address] Calcium [Mass/Vol] 9.2 mg/dL Normal 8.8-10.0 [facility] Comment on above: Performed By: #### L AB20, LAB99, LAB15, [id number] ####[employer] Supervisor: ROSETTE ZHAO ([phone])[facility] ([facility])[address] Chloride [Moles/Vol] 109 mmol/L High 98-107 [facility] Comment on above: Performed By: #### L AB20, LAB99, LAB15, [id number] ####[employer] Supervisor: ROSETTE ZHAO ([phone])[facility] ([facility])[address] CO2 [Moles/Vol] 19 mmol/L Low 23-31 [facility] Comment on above: Performed By: #### L AB20, LAB99, LAB15, [id number] ####[employer] Supervisor: ROSETTE ZHAO ([phone])[facility] ([facility])[address] Creatinine [Mass/Vol] 0.87 mg/dL Normal 0.57-1.11 [facility] Comment on above: Performed By: #### L AB20, LAB99, LAB15, [id number] ####[employer] Supervisor: ROSETTE ZHAO ([phone])[facility] ([facility])[address] GLOMERULAR FILTRATION RATE ML/MIN/1.73 SQ M.PREDICTED 66.6 mL/min/1.73m*2 Normal >60.0 [facility] Comment on above: Result Comment: Calc ulation based on the Chronic Kidney Disease Epidemiology Collaboration (CKD-EPI) equation refit without adjustment for race Performed By: #### L AB20, LAB99, LAB15, [id number] ####[employer] Supervisor: ROSETTE ZHAO ([phone])[facility] ([facility])[address] Glucose [Mass/Vol] 114 mg/dL Normal 82-115 [facility] Comment on above: Performed By: #### L AB20, LAB99, LAB15, [id number] ####[employer] Supervisor: ROSETTE ZHAO ([phone])[facility] ([facility])[address] Potassium [Moles/Vol] 4.2 mmol/L Normal 3.5-5.1 [facility] Comment on above: Result Comment: [facility] potassium values may be up to 0.5 mmol/L lower than serum values. Performed By: #### L AB20, LAB99, LAB15, [id number] ####[employer] Supervisor: ROSETTE ZHAO ([phone])[facility] ([facility])[address] Sodium [Moles/Vol] 137 mmol/L Normal 136-145 [facility] Comment on above: Performed By: #### L AB20, LAB99, LAB15, [id number] ####[employer] Supervisor: ROSETTE ZHAO ([phone])[facility] ([facility])[address] Urea nitrogen [Mass/Vol] 17 mg/dL Normal 9-23 [facility] Comment on above: Performed By: #### L AB20, LAB99, LAB15, [id number] ####[employer] Supervisor: ROSETTE ZHAO ([phone])[facility] ([facility])[address] Basic metabolic 1998 panelon 10-17-2024 Anion gap [Moles/Vol] 9 mmol/L 3 - 13 mmol/L [facility] Calcium [Mass/Vol] 9.2 mg/dL 8.8 - 10. 0 mg/dL [facility] Chloride [Moles/Vol] 109 mmol/L High 98 - 10 7 mmol/L [facility] CO2 [Moles/Vol] 19 mmol/L Low 23 - 31 mmol/L [facility] Creatinine [Mass/Vol] 0.87 mg/dL 0.57 - 1.11 mg/dL [facility] GFR/1.73 sq M.predicted (S/P/Bld) [Vol rate/Area] 66.6 mL/min - PINF [facility] Comment on above: Calculation based on the Chronic Kidney Disease Epidemiology Collaboration (CKD-EPI) equation refit without adjustment for race Glucose [Mass/Vol] 114 mg/dL 82 - 115 mg/dL [facility] Potassium [Moles/Vol] 4.2 mmol/L 3.5 - 5.1 mmol/L [facility] Comment on above: Plasma potassium morro ues may be up to 0.5 mmol/L lower than serum values. Sodium [Moles/Vol] 137 mmol/L 136 - 145 mmol/L [facility] Urea nitrogen [Mass/Vol] 17 mg/dL 9 - 23 mg/d L [facility] CBC W Auto Differential pane l (Bld)on 10-17-2024 Basophils (Bld) [#/Vol] 0.1 10*3/uL 0.0 - 0.2 10*3/uL [facility] Basophils/100 WBC (Bld) 0.7 % 0.0 - 2.0 % [facility] Eosinophils (Bld) [#/Vol] 0.1 10*3/uL 0. 0 - 0.5 10*3/uL [facility] Eosinophils/100 WBC (Bld) 1.6 % 0.0 - 6.0 % [facility] Erythrocyte distribution width (RBC) [Ratio] 13.2 % 11.5 - 15.0 % [facility] Hematocrit (Bld) [Volume fraction] 37.1 % 35.0 - 47.0 % [facility] Hemoglobin (Bld) [Mass/Vol] 12.4 g/dL 11.7 - 16.0 g/dL [facility] Immature granulocytes (Bld) [#/Vol] 0 10*3/uL NINF - 0.1 10*3/uL [facility] Immature granulocytes/100 WBC (Bld) 0.3 % 0.0 - 2.0 % [facility] Interpretation and review of laboratory results Abnormal [facility] th Lymphocytes (Bld) [#/Vol] 1.7 10*3/uL 1. 0 - 4.3 10*3/uL [facility] Lymphocytes/100 WBC (Bld) 24.7 % 15 .0 - 45.0 % [facility] MCH (RBC) [Entitic mass] 32.8 pg 26. 0 - 34.0 pg [facility] MCHC (RBC) [Mass/Vol] 33.4 % 30.5 - 36.0 % [facility] MCV (RBC) [Entitic vol] 98.1 fL 77.0 - 99.0 fL [facility] Monocytes (Bld) [#/Vol] 0.7 10*3/uL 0.0 - 0.9 10*3/uL [facility] Monocytes/100 WBC (Bld) 10.5 % 5.0 - 13.0 % [facility] Neutrophils (Bld) [#/Vol] 4.2 10*3/uL 1. 8 - 7.5 10*3/uL [facility] Neutrophils/100 WBC (Bld) 62.2 % 38 .0 - 82.0 % [facility] Nucleated RBC/100 WBC (Bld) [Ratio] 0 % [facility] Platelet mean volume (Bld) [Entitic vol] 8.9 fL Low 9.0 - 12.7 fL [facility] Platelets (Bld) [#/Vol] 303 10*3/uL 140 - 440 10*3/uL [facility] RBC (Bld) [#/Vol] 3.78 10*6/uL Low 3.80 - 5.2 0 10*6/uL [facility] WBC (Bld) [#/Vol] 6.8 10*3/uL 3.6 - 10.7 10*3/uL [facility] CBC WITH AUTO DIFFERENTIALon 10-17-2024 Basophils (Bld) [#/Vol] 0.1 10*3/uL Normal 0.0-0.2 [facility] Comment on above: Performed By: #### L [id number] ####[employer] Supervisor: ROSETTE ZHAO ([phone])[facility] ([facility])[address] [place], [place] [id number] [facility] Basophils/100 WBC (Bld) 0.7 % Normal 0.0-2.0 S [facility] Comment on above: Performed By: #### L [id number] ####[employer] Supervisor: ROSETTE ZHAO ([phone])[facility] ([facility])[address] [place] [address] Eosinophils (Bld) [#/Vol] 0.1 10*3/uL Normal 0.0-0.5 [facility] Comment on above: Performed By: #### L [id number] ####[employer] Supervisor: ROSETTE ZHAO ([phone])[facility] ([facility])[address] Eosinophils/100 WBC (Bld) 1.6 % Normal 0.0-6.0 [facility] Comment on above: Performed By: #### L [id number] ####[employer] Supervisor: ROSETTE MONTALVOVIK ([phone])[facility] [place] [address] Erythrocyte distribution width (RBC) [Ratio] 13.2 % Normal 11.5-15.0 [facility] Comment on above: Performed By: #### L [id number] ####[employer] Supervisor: ROSETTE MONTALVOVIK ([phone])[facility] [place] [address] Hematocrit (Bld) [Volume fraction] 37.1 % Normal 35.0-47.0 [facility] Comment on above: Performed By: #### L [id number] ####[employer] Supervisor: ROSETTE ZHAO ([phone])[facility] (SB[facility])[address] [place] [address] Hemoglobin (Bld) [Mass/Vol] 12.4 g/dL Normal 11.7-16.0 [facility] Comment on above: Performed By: #### L [id number] ####[employer] Supervisor: ROSETTE ZHAO ([phone])[facility] ([facility])[address] [place] [address] IMMATURE GRANS % 0.3 % Normal 0.0-2.0 [facility] Comment on above: Performed By: #### L [id number] ####[employer] Supervisor: ROSETTE ZHAO ([phone])[facility] S[facility]THYamile[facility]ITAL[facility] (SBHLAB)[address] IMMATURE GRANS ABSOLUTE 0.0 10*3/uL Normal <0.1 [facility] Comment on above: Performed By: #### L [id number] ####[employer] Supervisor: ROSETTE ZHAO ([phone])[facility] SOUTHYamilet [place] (SBHLAB)[address] Lymphocytes (Bld) [#/Vol] 1.7 10*3/uL Normal 1.0-4.3 [facility] Comment on above: Performed By: #### L [id number] ####[employer] Supervisor: ROSETTE ZHAO ([phone])[facility]OUTHYamilet [place] (SBHLAB)[address] [place] [address] Lymphocytes/100 WBC (Bld) 24.7 % Normal 15.0-45.0 [facility] Comment on above: Performed By: #### L [id number] ####[employer] Supervisor: ROSETTE ZAHO ([phone])[facility] S[facility]THYamilet [facility] (SBHLAB)[address] MCH (RBC) [Entitic mass] 32.8 pg Normal 26.0-34.0 [facility] Comment on above: Performed By: #### L [id number] ####[employer] Supervisor: ROSETTE ZHAO ([phone])[facility] (SBHLAB)[address] MCHC 33.4 % Normal 30.5-36.0 [facility] Comment on above: Performed By: #### L [id number] ####[employer] Supervisor: ROSETTE ZHAO ([phone])[facility] SOUTHYamilet [place] (SBHLAB)[address] MCV (RBC) [Entitic vol] 98.1 fL Normal 77.0-99.0 [facility] Comment on above: Performed By: #### L [id number] ####[employer] Supervisor: ROSETTE [phone])[facility] (SBHLAB)[address] Monocytes (Bld) [#/Vol] 0.7 10*3/uL Normal 0.0-0.9 [facility] Comment on above: Performed By: #### L [id number] ####[employer] Supervisor: ROSETTE ZHAO ([phone])[facility] [place] (SBHLAB)[address] Monocytes/100 WBC (Bld) 10.5 % Normal 5.0-13.0 [facility] Comment on above: Performed By: #### L [id number] ####[employer] Supervisor: ROSETTE ZHAO ([phone])[facility] [place] (SBHLAB)[address] NEUTROPHILS ABSOLUTE 4.2 10*3/uL Normal 1.8-7.5 [facility] Comment on above: Performed By: #### L [id number] ####[employer] Supervisor: ROSETTE ZHAO ([phone])[facility] [place] (SBHLAB)[address] Neutrophils/100 WBC (Bld) 62.2 % Normal 38.0-82.0 [facility] Comment on above: Performed By: #### L [id number] ####[employer] Supervisor: ROSETTE ZHAO ([phone])[facility] [place] (SBHLAB)[address] NRBC 0.0 /100 WBCs Normal 0.0-2.0 [facility] Comment on above: Performed By: #### L [id number] ####[employer] Supervisor: ROSETTE ZHAO ([phone])[facility] [place] (SBHLAB)[address] Platelet mean volume (Bld) [Entitic vol] 8.9 fL Low 9.0-12.7 [facility] Comment on above: Performed By: #### L [id number] ####[employer] Supervisor: ROSETTE [phone])[facility] SOUTHYamilet [facility] (SBHLAB)[address] Platelets (Bld) [#/Vol] 303 10*3/uL Normal 140-440 [facility] Comment on above: Performed By: #### L [id number] ####[employer] Supervisor: ROSETTE ZHAO ([phone])[facility]ITALN (SBHLAB)[address] RBC (Bld) [#/Vol] 3.78 10*6/uL Low 3.80-5.20 [facility] Comment on above: Performed By: #### L [id number] ####[employer] Supervisor: ROSETTE ZHAO ([phone])[facility] (SBHLAB)[address] [place] [address] WBC (Bld) [#/Vol] 6.8 10*3/uL Normal 3.6-10.7 [facility] Comment on above: Performed By: #### L [id number] ####[employer] Supervisor: ROSETTE ZHAO ([phone])[facility] (SBHLAB)[address] [place] [address] COMPLETE URINALYSISon 2024 BACTERIA (#/HPF) IN URINE Many Abnormal Negative [facility] Comment on above: Performed By: #### L [id number] ####[employer] Supervisor: ROSETTE ZHAO ([phone])[facility] (SBHLAB)[address] [place] [address]#### [id number] ####[employer] Supervisor: SHEEBA MUSTAFA ([phone])[facility] (SACLAB)[address] [place] [address] BILIRUBIN, TOTAL PRESENCE IN URINE Negative Normal Negative [facility] Comment on above: Performed By: #### L [id number] ####[employer] Supervisor: ROSETTE ZHAO ([phone])[facility] (SBHLAB)[address] [place] [address]#### [id number] ####[employer] Supervisor: SHEEBA MUSTAFA ([phone])[facility] (SACLAB)[address] [place] [address] Clarity (U) Extra Turbid Abnormal Clear [facility] Comment on above: Performed By: #### L [id number] ####[employer] Supervisor: ROSETTE ZHAO ([phone])[facility] (HLAB)[address] [place] [address] [place]#### [id number] ####[employer] Supervisor: SHEEBA MUSTAFA ([phone])[facility] (SACLAB)[address] [place] [address] Color (U) Yellow Normal Lt. Yellow [facility] Comment on above: Performed By: #### L [id number] ####[employer] Supervisor: ROSETTE ZHAO ([phone])[facility])[address] [place] [address] [place]#### [id number] ####[employer] Supervisor: SHEEBA MUSTAFA ([phone])[facility] (SACLAB)[address] [place] [address] GLUCOSE (MG/DL) IN URINE Normal Normal Normal (<70 ) [facility] Comment on above: Performed By: #### L [id number] ####[employer] Supervisor: ROSETTE ZHAO ([phone])[facility])[address] [place] [address]#### [id number] ####[employer] Supervisor: SHEEBA MUSTAFA ([phone])[facility] (SACLAB)[address] [place] [address] HEMOGLOBIN PRESENCE IN URINE 0.03 mg/dL Abnormal Negative [facility] Comment on above: Performed By: #### L [id number] ####[employer] Supervisor: ROSETTE ZHAO ([phone])[facility] (HLAB)[address] [place] [address]#### [id number] ####[employer] Supervisor: SHEEBA MUSTAFA ([phone])[facility] ([facility])[address] [place] [address] Ketones Ql (U) Negative Normal Negative [facility] Comment on above: Performed By: #### L [id number] ####[employer] Supervisor: ROSETTE ZHAO ([phone])[facility] [place] [address]#### [id number] ####[employer] Supervisor: SHEEBA MUSTAFA ([phone])[facility] ([facility])[address] [place] [address] LEUKOCYTE ESTERASE PRESENCE IN URINE BY TEST STRIP 75 Cathy/uL Abnormal Negative [facility] Comment on above: Performed By: #### L [id number] ####[employer] Supervisor: ROSETTE ZHAO ([phone])[facility] ([facility])[address] [place] [address]#### [id number] ####[employer] Supervisor: SHEEBA MUSTAFA ([phone])[facility] ([facility])[address] [place] [address] NITRITE PRESENCE IN URINE Negative Normal Negative [facility] Comment on above: Performed By: #### L [id number] ####[employer] Supervisor: ROSETTE ZHAO ([phone])[facility] ([facility])[address] [place] [address]#### [id number] ####[employer] Supervisor: SHEEBA MUSTAFA ([phone])[facility] ([facility])[address] [place] [address] pH (U) 8.0 [pH] Normal 5.0-8.0 [facility] Comment on above: Performed By: #### L [id number] ####[employer] Supervisor: ROSETTE ZHAO ([phone])[facility] [place] [address]#### [id number] ####[employer] Supervisor: SHEEBA MUSTAFA ([phone])[facility] ([facility])[address] [place] [address] Protein (U) [Mass/Vol] 30 mg/dL Abnormal Negative [facility] Comment on above: Performed By: #### L [id number] ####[employer] Supervisor: ROSETTE ZHAO ([phone])[facility]TH[facility] MCKEONARACELI (SBHLAB)[address] [place] [address]#### [id number] ####[employer] Supervisor: SHEEBA MUSTAFA ([phone])[facility] ([facility])[address] [place] [address] RBC (#/HPF) IN URINE SEDIMENT 3-5 Abnormal 0-2 [facility] Comment on above: Performed By: #### L [id number] ####[employer] Supervisor: ROSETTE ZHAO ([phone])[facility] S[facility]THYam[facility] MCKEONARACELI (SBHLAB)[address] [place] [address]#### [id number] ####[employer] Supervisor: SHEEBA MUSTAFA ([phone])[facility] ([facility])[address] [place] [address] Specific gravity (U) [Rel density] 1.014 Normal 1.005-1.030 [facility] Comment on above: Performed By: #### L [id number] ####[employer] Supervisor: ROSETTE ZHAO ([phone])[facility] MCKEON[facility]ACELI (SBHLAB)[address] [place] [address]#### [id number] ####[employer] Supervisor: SHEEBA MUSTAFA ([phone])[facility] ([facility])[address] [place] [address] SQUAMOUS EPITHELIAL CELLS (#/HPF) IN URINE SEDIMENT 0-2 Normal 3-5 [facility] Comment on above: Performed By: #### L [id number] ####[employer] Supervisor: ROSETTE ZHAO ([phone])[facility] (SBHLAB)[address] [place] [address]#### [id number] ####[employer] Supervisor: SHEEBA MUSTAFA ([phone])[facility] ([facility])[address] [place] [address] TRIPLE PHOSPHATE CRYSTALS (#/HPF) IN URINE Moderate Abnormal Negative [facility] Comment on above: Performed By: #### L [id number] ####[employer] Supervisor: ROSETTE ZHAO ([phone])[facility] JAIME (SBHLAB)[address]#### [id number] ####[employer] Supervisor: SHEEBA MUSTAFA ([phone])[facility] ([facility]AC[facility])[address] [place] [address] UROBILINOGEN (MG/DL) IN URINE Normal Normal Normal (0-1) [facility] Comment on above: Performed By: #### L [id number] ####[employer] Supervisor: ROSETTE ZHAO ([phone])[facility] (SBHLAB)[address] [place] [address]#### [id number] ####[employer] Supervisor: SHEEBA MUSTAFA ([phone])[facility] ([facility])[address] [place] [address] WBC (LEUKOCYTE) (#/HPF) IN URINE SEDIMENT 11-25 Abnormal 0-5 [facility] Comment on above: Performed By: #### L [id number] ####[employer] Supervisor: ROSETTE ZHAO ([phone])[facility] (SBHLAB)[address] [place] [address]#### [id number] ####[employer] Supervisor: SHEEBA MUSTAFA ([phone])[facility] ([facility])[address] [place] [address] COVID-19, Flu A/B, and RSV C omboon 10-17-2024 Interpretation and review of laboratory results Normal [facility] Consulton 10-17-2024 Consult Normal [facility] D-DIMER,QUANTITATIVEon 10-17 D-DIMER, INNOVANCE 0.55 mg/L High <0.50 [facility] Comment on above: Result Comment: HUSSAIN Bhatt COMMENTS:Innovance D-Dimer values of <0.50 mg/L FEU can be used in combination with a pre-test probability model (e.g. Well's) to exclude pulmonary embolism (PE) disease, as well as an aid in the diagnosis of deep vein thrombosis (DVT). Performed By: #### L [id number] ####[employer] Supervisor: ROSETTE ZHAO ([phone])[facility] [place] [address] ECG 12-LEADon 10-17-2024 ECG 12-LEAD IMPRESSION: Atrial fibrillation Anterior infarct, old Nonspecific T abnormalities, lateral leads Minimal ST elevation, lateral leads Electronically Signed On 10-17-2024 11:13:09 EST by Ag Meng Normal [facility] ED Nursing Noteon 10-17-2024 ED Nursing Note Normal [facility] ED Provider Noteon ED Provider Note Normal [facility] Fibrin D-dimer FEU (PPP) [Ma ss/Vol]on 10-17-2024 Interpretation and review of laboratory results Abnormal [facility] D-Dimer values of <0.50 mg/L FEU can be used in combination with a pre-test probability model (e.g. Well's) to exclude pulmonary embolism (PE) disease, as well as an aid in the diagnosis of deep vein thrombosis (DVT). [facility] HEPATIC FUNCTION PANELon Albumin [Mass/Vol] 3.3 g/dL Low 3.4-4.8 [facility] Comment on above: Performed By: #### L AB20, LAB99, LAB15, [id number] ####[employer] Supervisor: ROSETTE ZHAO ([phone])[facility] (HLAB)[address] [place] [address] ALP [Catalytic activity/Vol] 70 U/L Normal 40-150 [facility] Comment on above: Performed By: #### L AB20, LAB99, LAB15, [id number] ####[employer] Supervisor: ROSETTE ZHAO ([phone])[facility] [place] [address] ALT [Catalytic activity/Vol] 14 U/L Normal <30 [facility] Comment on above: Performed By: #### L AB20, LAB99, LAB15, [id number] ####[employer] Supervisor: ROSETTE ZHAO ([phone])[facility] SOUTHYamilet [place] (SBHLAB)[address] AST [Catalytic activity/Vol] 30 U/L Normal <34 [facility] Comment on above: Performed By: #### L AB20, LAB99, LAB15, [id number] ####[employer] Supervisor: ROSETTE PAVEL ([phone])[facility] (SBHLAB)[address] Bilirubin [Mass/Vol] 1.0 mg/dL Normal <1.2 [facility] Comment on above: Performed By: #### L AB20, LAB99, LAB15, [id number] ####[employer] Supervisor: ROSETTE HUMPHREYSJONNIE ([phone])[facility] [place] [address] Bilirubin.indirect [Mass/Vol] 0.4 mg/dL Normal <0.5 [facility] Comment on above: Performed By: #### L AB20, LAB99, LAB15, [id number] ####[employer] Supervisor: ROSETTE HUMPHREYSJONNIE ([phone])[facility] [place] [address] Protein [Mass/Vol] 6.6 g/dL Normal 6.4-8.3 [facility] Comment on above: Result Comment: Seru m protein values are higher than plasma values. Samples from recumbent persons are lower by up to 0.5 g/dL as compared to ambulatory persons. After 60 years values are lower by up to 0.2 g/dL. Performed By: #### L AB20, LAB99, LAB15, [id number] ####[employer] Supervisor: ROSETTE MONTALVOVIK ([phone])[facility] ([facility])[address] [place] [address] HIGH SENSITIVITY TROPONIN, S ERIAL BASELINEon 10-17-2024 TROPONIN HS SERIAL BASELINE 76 ng/L High <=14 [facility] Comment on above: Result Comment: In i ndividuals presenting with symptoms > 2h, a baseline troponin <= 5 ng/L suggests acutecardiac injury is unlikely and further serial testing is generally not indicated. Performed By: #### L [id number] ####[employer] Supervisor: ROSETTE ZHAO ([phone])[facility] ([facility])[address] [place] [address] TROPONIN HS SERIAL BASELINE 82 ng/L High <=14 [facility] Comment on above: Result Comment: In i ndividuals presenting with symptoms > 2h, a baseline troponin <= 5 ng/L suggests acutecardiac injury is unlikely and further serial testing is generally not indicated. Performed By: #### L AB20, LAB99, LAB15, [id number] ####[employer] Supervisor: ROSETTE ZHAO ([phone])[facility] ([facility])[address] [place] [address] HIGH SENSITIVITY TROPONIN, S ERIAL, SECOND TESTon 10-17-2024 2H TROPONIN HS (SERIAL 2ND TROPONIN) 81 ng/L High <=14 [facility] Comment on above: Result Comment: Risi ng or falling troponin delta between 2 ??? 15 ng/L as compared to baseline value requires a 3rd serial troponin Performed By: #### L [id number] ####[employer] Supervisor: ROSETTE ZHAO ([phone])[facility] ([facility])[address] [place] [address] 2H TROPONIN HS (SERIAL 2ND TROPONIN) 83 ng/L High <=14 [facility] Comment on above: Result Comment: Risi ng or falling troponin delta below 2 ng/L as compared to baseline value suggests thatacute cardiac injury is unlikely. Performed By: #### L [id number], [id number] ####[employer] Supervisor: ROSETTE ZHAO ([phone])[facility] ([facility])[address] [place] [address] Hepatic function 2000 panelo n 10-17-2024 Albumin [Mass/Vol] 3.3 g/dL Low 3.4 - 4.8 g/dL [facility] ALP [Catalytic activity/Vol] 70 U/L 40 - 150 U/L [facility] ALT [Catalytic activity/Vol] 14 U/L NINF - 30 U/L [facility] AST [Catalytic activity/Vol] 30 U/L NINF - 34 U/L [facility] Bilirubin [Mass/Vol] 1 mg/dL NINF - 1.2 mg/dL [facility] Bilirubin.conjugated [Mass/Vol] 0.4 mg/dL NINF - 0.5 mg/dL [facility] Protein [Mass/Vol] 6.6 g/dL 6.4 - 8.3 g/dL [facility] Comment on above: Serum protein values are higher than plasma values. Samples from recumbent persons are lower by up to 0.5 g/dL as compared to ambulatory persons. After 60 years values are lower by up to 0.2 g/dL. LIPASEon 10-17-2024 Lipase [Catalytic activity/Vol] 9 U/L Normal <55 [facility] Comment on above: Performed By: #### L AB20, LAB99, LAB15, [id number] ####[employer] Supervisor: ROSETTE ZHAO ([phone])[facility] ([facility])[address] [place] [address] Laboratory - Chemistry and C hemistry - challengeon 10-17-2024 TSH Qn 2.48 m[IU]/L [facility] Lipase [Catalytic activity/Vol] 9 U/L NINF - 55 U/L [facility] Laboratory - Coagulationon 0 10-17-2024 Fibrin D-dimer FEU (PPP) [Mass/Vol] 0.55 mg/L High NINF - 0.50 mg/L [facility] Laboratory - Microbiology an d Antimicrobial susceptibilityon 10-17-2024 FLUAV RNA ISSAC+probe Ql (Resp) Not detected Not Detected [facility] FLUBV RNA ISSAC+probe Ql (Resp) Not detected Not Detected [facility] RSV RNA ISSAC+probe Ql (Resp) Not detected Not Detected [facility] SARS-CoV-2 (COVID-19) RNA ISSAC+probe Ql (Resp) Not detected Not Detected [facility] SARS-CoV-2 (COVID-19) RNA ISSAC+probe Ql (Unsp spec) Methodology: real-time, RT-PCR The SARS-CoV-2, Flu A/B, and RSV Combo assay is intended for in vitro diagnostic use under the FDA Emergency Use Authorization (EUA). This test has not been FDA cleared or approved. In compliance with this authorization, please visit www.fda.gov/media/ 1692/download or www.fda.gov/media/ 1344/download to access the applicable information sheets. [facility] Lipase [Catalytic activity/V ol]on 10-17-2024 Interpretation and review of laboratory results Normal [facility] No Panel InformationOrdered By: Atilio Chaparro on 10-17-2024 2h Troponin HS (Serial 2nd Troponin) 81 ng/L High NINF - 14 ng/L [facility] Comment on above: Rising or falling tr oponin delta between 2 15 ng/L as compared to baseline value requires a 3rd serial troponin Interpretation and review of laboratory results Abnormal [facility] No Panel Informationon 10-17 Interpretation and review of laboratory results Abnormal [facility] Troponin HS Serial Baseline 76 ng/L High NINF - 14 ng/L [facility] Comment on above: In individuals prese nting with symptoms > 2h, a baseline troponin <= 5 ng/L suggests acute cardiac injury is unlikely and further serial testing is generally not indicated. [facility] 2h Troponin HS (Serial 2nd Troponin) 83 ng/L High NINF - 14 ng/L [facility] Comment on above: Rising or falling tr oponin delta below 2 ng/L as compared to baseline value suggests that acute cardiac injury is unlikely. Interpretation and review of laboratory results Abnormal [facility] Interpretation and review of laboratory results Abnormal [facility] Troponin HS Serial Baseline 82 ng/L High NINF - 14 ng/L [facility] Comment on above: In individuals prese nting with symptoms > 2h, a baseline troponin <= 5 ng/L suggests acute cardiac injury is unlikely and further serial testing is generally not indicated. [facility] Interpretation and review of laboratory results Abnormal [facility] P [place] 0 degrees [facility] CT Interval 0 ms [facility] QRS [place] -34 degrees [facility] QRSD Interval 83 ms [facility] h QT Interval 346 ms [facility] QTC Interval 471 ms [facility] T Wave [place] 107 degrees [facility] Atrial fibrillation Anterior infarct, old Nonspecific T abnormalities, lateral leads Minimal ST elevation, lateral leads Electronically Signed On 10-17-2024 11:13:09 EST by Ag Jackson MD - 10/17/2024 IMPRESSION: Atrial fibrillation Anterior infarct, old Nonspecific T abnormalities, lateral leads Minimal ST elevation, lateral leads Electronically Signed On 10-17-2024 11:13:09 EST by Ag Meng [facility] SARS-COV-2, FLU A/B, AND RSV COMBOon 10-17-2024 SARS-CoV-2 (COVID-19) RNA ISSAC+probe Ql (Unsp spec) Normal [facility] Comment on above: Performed By: #### L [id number] ####[employer] Supervisor: ROSETTE ZHAO ([phone])[facility] ([facility])[address] [place] [address] THYROID STIMULATING HORMONEo n 10-17-2024 THYROID STIMULATING HORMONE 2.48 uIU/mL Normal 0.35-4.94 [facility] Comment on above: Performed By: #### L [id number] ####[employer] Supervisor: ROSETTE ZHAO ([phone])[facility] ([facility])[address] [place] [address] TSH Qnon 10-17-2024 Interpretation and review of laboratory results Normal [facility] URINE CULTUREon 10-17-2024 Bacteria identified Cx Nom (U) Normal [facility] Comment on above: Performed By: #### L [id number] ####[employer] Supervisor: ROSETTE ZHAO ([phone])[facility] ([facility])[address] [place] [address]#### [id number] ####[employer] Supervisor: SHEEBA MUSTAFA ([phone])[facility] ([facility])[address] [place] [address] Urinalysis complete panel (U )Ordered By: Marcela Sahu on 10-17-2024 Bacteria LM.HPF (Urine sed) [#/Area] Many Abnormal Negative /HPF [facility] Bilirubin Ql (U) Negative Negative mg/dL [facility] Clarity (U) Extra Turbid Abnormal Clear [facility] h Color (U) Yellow Lt. Yellow [facility] Epithelial cells.squamous LM.HPF (Urine sed) [#/Area] 0-2 [facility] Glucose Ql (U) Normal Normal (<70) mg/dL [facility] Hemoglobin Ql (U) 0.03 mg/dL Abnormal Negative [facility]alth Interpretation and review of laboratory results Abnormal [facility] Ketones (U) [Mass/Vol] Negative Negat jaciel mg/dL [facility] Leukocyte esterase Test strip Ql (U) 75 Abnormal Negative Cathy/uL [facility] Nitrite Ql (U) Negative Negative [facility] pH (U) 8.0 [pH] 5.0 - 8.0 pH [facility] Protein (U) [Mass/Vol] 30 mg/dL Abnormal Negative [facility] RBC LM.HPF (Urine sed) [#/Area] 3-5 Abnormal [facility] Specific gravity (U) [Rel density] 1.014 1.005 - 1.030 [facility] Triple phosphate crystals LM.HPF (Urine sed) [#/Area] Moderate Abnormal Negative /HPF [facility] Urobilinogen (U) [Mass/Vol] Normal Normal (0-1) mg/dL [facility] WBC LM.HPF (Urine sed) [#/Area] 11-25 Abnormal [facility] Vital signson 10-17-2024 Heart rate 111 /min bpm [facility] XR Chest Single viewon 10-17 Mild left basilar atelectasis or infiltrates. Report Dictated on Electronically Signed By: Bakari Mcdonnell DR Electronically Signed Date/Time: 10/17/2024 11:35 AM [facility]OMMER [facility] 1940 [id number] Exam Date/Time: 10/17/2024 11:20 Procedure: XR CHEST 1 VIEW Ordering Provider: VELEZ CONNOR Reason For Exam: CHEST PAIN Clinical History: CHEST PAIN Comparison: None Technique: Single AP radiograph of the chest. Findings: Borderline cardiomegaly. Pulmonary vasculature is normal. Bilateral calcified breast prostheses obscuring the lower lungs. Left costophrenic patchy opacity. The lungs and pleural spaces are otherwise clear. No sizable pneumothorax. [facility] Bakari Mcdonnell MD - 10/17/2024 Patient Name: SOMMER FRIEDMAN : 1940 [facility]#: [id number] Exam Date/Time: 10/17/2024 11:20 Procedure: XR CHEST 1 VIEW Ordering Provider: VELEZ CONNOR Reason For Exam: CHEST PAIN Clinical History: CHEST PAIN Comparison: None Technique: Single AP radiograph of the chest. Findings: Borderline cardiomegaly. Pulmonary vasculature is normal. Bilateral calcified breast prostheses obscuring the lower lungs. Left costophrenic patchy opacity. The lungs and pleural spaces are otherwise clear. No sizable pneumothorax. IMPRESSION: Mild left basilar atelectasis or infiltrates. Report Dictated on Electronically Signed By: Bakari Mcdonnell DR Electronically Signed Date/Time: 10/17/2024 11:35 AM EST [facility] [email or web address] Radiology Study observation (narrative) [facility] XR Chest Single viewOrdered By: Bakari Mcdonnell on 10-17-2024 [email or web address] Work Phone: Serum or plasma thyroid stim ulating hormone (TSH) measurement (units/volume)Ordered By: Kathi Juarez on 10-08-2024 TSH Qn 3.490 uIU/mL 0.358-3.740 [facility] Serum or plasma thyroxine (T 4) measurement (mass/volume)Ordered By: Kathi Juarez on 10-08-2024 T4 [Mass/Vol] 11.8 ug/dL 4.8-13.9 [facility] Serum or plasma triiodothyro nine measurement by immunoassay (mass/volume)Ordered By: Kathi Juarez on 10-08-2024 T3 [place] [Mass/Vol] 0.75 ng/mL 0.6-1.81 [facility] CNOVon 08-23-2024 CNOV Office Visit (CARDMM) SOMMER FRIEDMAN ([id number]) 1940 F Date Time Provider Department 08/23/24 9:00 AM JOANA WILSON During your visit today, we recorded the following information about you: Pulse Blood pressure Weight Height 74/minute 160/80 57.6 kg 1.626 m Joana Wilson MD 08/23/2024 4:35 PM Signed [facility] [place] SECTION OF REGIONAL CARDIOLOGY OUTPATIENT VISIT DATE 08/23/2024 OUTPATIENT VISIT TYPE NEW Patient is being seen at the request of Self for elevated BP. HISTORY OF PRESENT ILLNESS: Ms. Friedman is a 84 year old female, hx of atrial fibrillation, HLD, Hypertension, thyroid disease, COPD, anxiety, bradycardia presents for elevated BP. Accompanied by her caregiver. She resides [facility] ([phone]). Her POA is her son Parris Friedman [phone]. She denies chest pain, SOB, palpitations, orthopnea, PND, leg swelling, lightheadedness, syncope. She feels well and states that she us unsure why she needs to see cardiology and does not have any cardiac concerns/ symptoms. EKG: NSR HR 74, biphasic appearing T waves in V4-V6, QTc 481, PACs. She had presented to [facility] ER on 04/10/2024 with lower back pain. Reported fall approximately 1.5 weeks prior to presentation. Reportedly heart rates were in the 40s. She was diagnosed with L1 burst fracture. Her sotalol and diltiazem were held with improvement in heart rates. Cardiology was consulted. Social History Tobacco Use Smoking status: Former Types: Cigarettes Smokeless tobacco: Never Vaping Use Vaping status: Never Used Substance Use Topics Alcohol use: Not Currently Drug use: Never No family history on file. ALLERGIES Allergen Reactions Gabapentin Intolerance Propoxyphene Intolerance CURRENT MEDICATIONS: fluticasone-salmeter ol (ADVAIR) 500-50 mcg/dose dsdv Inhale 1 Puff as instructed. donepezil (ARICEPT) 10 mg tablet ibuprofen (ADVIL) 200 mg tablet Take 200 mg by mouth every 6 hours as needed. acetaminophen (TYLENOL) 325 mg cap Take by mouth. apixaban (ELIQUIS) 2.5 mg tab(s) Take by mouth two times a day. escitalopram oxalate (LEXAPRO) 20 mg tablet Take 20 mg by mouth once daily. lanolin alcohol/mo/w.pet/cer es (EUCERIN TOPICAL) Apply to affected area. furosemide (LASIX) 20 mg tablet Take 20 mg by mouth once daily. levothyroxine 88 mcg cap Take 88 mcg by mouth daily before breakfast. losartan (COZAAR) 50 mg tablet Take 50 mg by mouth once daily. melatonin 3 mg capsules Take by mouth. polyethylene glycol 3350 (MIRALAX) 17 gram packet Take 17 g by mouth once daily. Dissolve dose in 4 - 8 ounces of liquid and take as directed. multivit-min/iron/fo lic acid/K (MULTI-DAY PLUS MINERALS ORAL) Take by mouth. calcium carbonate/vitamin D3 (OYSTER SHELL + D3 ORAL) Take by mouth. potassium chloride (KLOR-CON) 20 mEq packet Take by mouth once daily. sennosides/docusate sodium (SENNA PLUS ORAL) Take by mouth. calcium carbonate (TUMS ORAL) Take by mouth. PHYSICAL EXAMINATION: BP 160/80 Pulse 74 Ht 162.6 cm (5' 4) Wt 57.6 kg (126 lb 15.8 oz) SpO2 97% BMI 21.80 kg/m? General: Appears comfortable in no apparent cardiopulmonary distress Neck: No JVD, no bruits CVS: S1, S2, No m/r/g Chest: CTAB Abd: Soft, nontender, no masses, BS present Ext: No pedal edema, pedal pulses 2+ bilaterally Neuro: No focal neurological deficits ASSESSMENT/PLAN: 1. Hypertension, unspecified type - ICD9: 401.9, ICD10: I10 - She states that her BP are well controlled at her place of residence. - Will contact her nurse at her residence. Atrial fibrillation Stable - On Eliquis 2.5 mg p.o. twice daily based on age and weight - Sotalol and diltiazem were held due to bradycardia. - She is declining echocardiogram Abnormal EKG Noted to have QTc 481 and biphasic appearing T waves anterolaterally -She is declining ischemic workup including stress testing. She is aware of the possible cardiac risks of not having testing done in the event that she does have significant cardiac and coronary artery disease - Declining further cardiac testing - Avoid QT prolonging agents -She states that she will inform her nursing if she wishes a follow-up visit with cardiology. - She states that she is ok with us contacting her nurse to provide update on today's visit. I spoke to the retail interior designer at her residence who stated that her nurse was unavailable. I left a message for her nurse to contact me via telephone to update her on the visit. Joana Wilson MD, [facility] Non invasive and Sports Director Check Referring Provider: ROYER ZAMBRANO [[id number]] Allergies As of Date: 08/23/2024 Noted Allergy Reaction GABAPENTIN 08/23/2024 5 - Intolerance PROPOXYPHENE 08/23/2024 5 - Intolerance Date Reviewed: 08/23/2024 Reviewed by: Campbell Blake LPN - Fully Assessed Reason for Visit: Emmett Hatfield (more content not included)... Normal [facility] [id number] 08-23-2024 ECG01 Ventricular Rate : 74 BPM Atrial Rate : 74 BPM P-R Interval : 126 ms QRS Duration : 78 ms Q-T Interval : 434 ms QTC Calculation(Bazett) : 481 ms Calculated P Whiteford : 108 degrees Calculated R Whiteford : -3 degrees Calculated T [place] : 101 degrees SINUS RHYTHM WITH PREMATURE ATRIAL COMPLEXES MINIMAL VOLTAGE CRITERIA FOR LVH, MAY BE NORMAL VARIANT ( Robin product ) Septal Infarct , AGE UNDETERMINED LATERAL T WAVE ABNORMALITY ABNORMAL ECG Confirmed by MD ACEVEDO GREGORY () on 08/26/2024 4:41:23 PM NAME : SOMMER FRIEDMAN PID : [id number] : 1940 Gender : Female Race : ORD : Procedure Date : Aug 23 2024 09:00:02 Edit Date : Aug 26 2024 16:41:24 Diagnosis: SINUS RHYTHM WITH PREMATURE ATRIAL COMPLEXES MINIMAL VOLTAGE CRITERIA FOR LVH, MAY BE NORMAL VARIANT ( Robin product ) Septal Infarct , AGE UNDETERMINED LATERAL T WAVE ABNORMALITY ABNORMAL ECG Confirmed by MD ACEVEDO GREGORY () on 08/26/2024 4:41:23 PM Test Reason : Location : 211 : [facility] Overread By : MD ACEVEDO GREGORY Edited By : MD ACEVEDO GREGORY Referred By : ROYER ZAMBRANO Acquired by : Laura MALAVE [facility] CARECOORDon 04-12-2024 [facility] CARECOORD Called son Parris to review discharge time/plan. He is agreeable and wants to talk with Dr. Shannon re: diagnosis.[facility] has notified pt of this request. [facility] MAR & Discharge med list transmitted to [facility] via Careport per [facility] request. Electronically signed by ALECIA Cates Normal [facility] CARECOORD Normal [facility] CARECOORD [facility] IDNon 04-12-2024 IDN [facility] Nursing Noteon 04-12-2024 Nursing Note Report called to Joan Vyas. [facility] Nursing Note Attempted to call report to [facility]. The nurse was unavailable. Message left with typing secretary. [facility] Progress Noteon 04-12-2024 Progress Note Normal [facility] Progress Note Normal [facility] Progress Note Nutrition rescreen completed. Chart reviewed. Patient to be monitored and followed by the diet research technician. Lisa Munroe, BENNIE [facility] BASIC METABOLIC PANELon 03-22 Anion gap [Moles/Vol] 4 mmol/L Normal 3-13 [facility] Comment on above: Performed By: #### L [id number] ####[employer] Supervisor: SHEEBA MUSTAFA ([phone])[address] Calcium [Mass/Vol] 9.0 mg/dL Normal 8.4-10.4 [facility] Comment on above: Performed By: #### L [id number] ####[employer] Supervisor: SHEEBA MUSTAFA ([phone])[facility] [place] [address] Chloride [Moles/Vol] 106 mmol/L Normal 98-107 [facility] Comment on above: Performed By: #### L [id number] ####[employer] Supervisor: SHEEBA MUSTAFA ([phone])[facility])[address] [place] [address] CO2 [Moles/Vol] 20 mmol/L Low 22-30 [facility] Comment on above: Performed By: #### L AB15 ####[employer] Supervisor: SHEEBA MUSTAFA ([phone])[facility])[address] [place] [address] Creatinine [Mass/Vol] 0.81 mg/dL Normal 0.52-1.04 [facility] Comment on above: Performed By: #### L [id number] ####[employer] Supervisor: SHEEBA MUSTAFA ([phone])[facility])[address] [place] [address] GLOMERULAR FILTRATION RATE ML/MIN/1.73 SQ M.PREDICTED 72.6 mL/min/1.73m*2 Normal >60.0 [facility] Comment on above: Result Comment: Calc ulation based on the Chronic Kidney Disease Epidemiology Collaboration (CKD-EPI) equation refit without adjustment for race Performed By: #### L AB15 ####[employer] Supervisor: SHEEBA MUSTAFA ([phone])[facility])[address] [place] [address] Glucose [Mass/Vol] 108 mg/dL High 70-100 [facility] Comment on above: Performed By: #### L AB15 ####[employer] Supervisor: SHEEBA MUSTAFA ([phone])[facility])[address] [place] [address] Potassium [Moles/Vol] 3.9 mmol/L Normal 3.5-5.1 [facility] Comment on above: Performed By: #### L AB15 ####[employer] Supervisor: SHEEBA MUSTAFA ([phone])[facility])[address] [place] [address] Sodium [Moles/Vol] 130 mmol/L Low 135-145 [facility] Comment on above: Performed By: #### L AB15 ####[employer] Supervisor: SHEEBA MUSTAFA ([phone])[facility] ([facility])[address] [place] [address] [place] Urea nitrogen [Mass/Vol] 19 mg/dL High 7-17 [facility] Comment on above: Performed By: #### L AB15 ####[employer] Supervisor: SHEEBA MUSTAFA ([phone])[facility] ([facility] [place] [address] [place] Anion gap [Moles/Vol] 5 mmol/L Normal 3-13 [facility] Comment on above: Performed By: #### L AB15 ####[employer] Supervisor: SHEEBA MUSTAFA ([phone])[facility] ([facility])[address] [place] [address] Calcium [Mass/Vol] 9.1 mg/dL Normal 8.4-10.4 [facility] Comment on above: Performed By: #### L AB15 ####[employer] Supervisor: SHEEBA MUSTAFA ([phone])[facility] ([facility])[address] [place] [address] [place] Chloride [Moles/Vol] 108 mmol/L High 98-107 [facility] Comment on above: Performed By: #### L AB15 ####[employer] Supervisor: SHEEBA MUSTAFA ([phone])[facility] ([facility])[address] [place] [address] [place] CO2 [Moles/Vol] 19 mmol/L Low 22-30 [facility] Comment on above: Performed By: #### L AB15 ####[employer] Supervisor: SHEEBA MUSTAFA ([phone])[facility] ([facility])[address] [place] [address] [place] Creatinine [Mass/Vol] 0.73 mg/dL Normal 0.52-1.04 [facility] Comment on above: Performed By: #### L AB15 ####[employer] Supervisor: SHEEBA MUSTAFA ([phone])[facility] ([facility])[address] [place] [address] [place] GLOMERULAR FILTRATION RATE ML/MIN/1.73 SQ M.PREDICTED 82.2 mL/min/1.73m*2 Normal >60.0 [facility] Comment on above: Result Comment: Calc ulation based on the Chronic Kidney Disease Epidemiology Collaboration (CKD-EPI) equation refit without adjustment for raceORDER COMMENTS:Slightly Hemolyzed. Interpret K+ with caution. Performed By: #### L AB15 ####[employer] Supervisor: SHEEBA MUSTAFA ([phone])[facility] ([facility])[address] [place] [address] Glucose [Mass/Vol] 100 mg/dL Normal 70-100 [facility] Comment on above: Performed By: #### L AB15 ####[employer] Supervisor: SHEEBA MUSTAFA ([phone])[facility])[address] [place] [address] Potassium [Moles/Vol] 4.8 mmol/L Normal 3.5-5.1 [facility] Comment on above: Performed By: #### L AB15 ####[employer] Supervisor: SHEEBA MUSTAFA ([phone])[facility] ([facility])[address] [place] [address] Sodium [Moles/Vol] 133 mmol/L Low 135-145 [facility] Comment on above: Performed By: #### L AB15 ####[employer] Supervisor: SHEEBA MUSTAFA ([phone])[facility])[address] [place] [address] Urea nitrogen [Mass/Vol] 20 mg/dL High 7-17 [facility] Comment on above: Performed By: #### L AB15 ####[employer] Supervisor: SHEEBA MUSTAFA ([phone])[facility])[address] [place] [address] Basic metabolic 1998 panelon 04-11-2024 Anion gap [Moles/Vol] 4 mmol/L 3 - 13 mmol/L [facility] Calcium [Mass/Vol] 9.0 mg/dL 8.4 - 10. 4 mg/dL [facility] Chloride [Moles/Vol] 106 mmol/L 98 - 10 7 mmol/L [facility] CO2 [Moles/Vol] 20 mmol/L Low 22 - 30 mmol/L [facility] Creatinine [Mass/Vol] 0.81 mg/dL 0.52 - 1.04 mg/dL [facility] GFR/1.73 sq M.predicted (S/P/Bld) [Vol rate/Area] 72.6 mL/min - PINF [facility] Comment on above: Calculation based on the Chronic Kidney Disease Epidemiology Collaboration (CKD-EPI) equation refit without adjustment for race Glucose [Mass/Vol] 108 mg/dL High 70 - 100 mg/dL [facility] Interpretation and review of laboratory results Abnormal [facility] Potassium [Moles/Vol] 3.9 mmol/L 3.5 - 5.1 mmol/L [facility] Sodium [Moles/Vol] 130 mmol/L Low 135 - 145 mmol/L [facility] Urea nitrogen [Mass/Vol] 19 mg/dL High 7 - 17 mg/d L [facility] Anion gap [Moles/Vol] 5 mmol/L 3 - 13 mmol/L [facility] Calcium [Mass/Vol] 9.1 mg/dL 8.4 - 10. 4 mg/dL [facility] Chloride [Moles/Vol] 108 mmol/L High 98 - 10 7 mmol/L [facility] CO2 [Moles/Vol] 19 mmol/L Low 22 - 30 mmol/L [facility] Creatinine [Mass/Vol] 0.73 mg/dL 0.52 - 1.04 mg/dL [facility] GFR/1.73 sq M.predicted (S/P/Bld) [Vol rate/Area] 82.2 mL/min - [facility] Comment on above: Calculation based on the Chronic Kidney Disease Epidemiology Collaboration (CKD-EPI) equation refit without adjustment for race Glucose [Mass/Vol] 100 mg/dL 70 - 100 mg/dL [facility] Interpretation and review of laboratory results Abnormal [facility] Potassium [Moles/Vol] 4.8 mmol/L 3.5 - 5.1 mmol/L [facility] Sodium [Moles/Vol] 133 mmol/L Low 135 - 145 mmol/L [facility] Urea nitrogen [Mass/Vol] 20 mg/dL High 7 - 17 mg/d L [facility] Slightly Hemolyzed. Interpret K+ with caution. [facility] CARECOORDon 04-11-2024 CARECOORD Normal [facility] CBC W Auto Differential pane l (Bld)on 04-11-2024 Basophils (Bld) [#/Vol] 0.0 10*3/uL 0.0 - 0.2 10*3/uL [facility] Basophils/100 WBC (Bld) 0.4 % 0.0 - 2.0 % [facility] Eosinophils (Bld) [#/Vol] 0.2 10*3/uL 0. 0 - 0.5 10*3/uL [facility] Eosinophils/100 WBC (Bld) 2.3 % 0.0 - 6.0 % [facility] Erythrocyte distribution width (RBC) [Ratio] 12.4 % 11.5 - 15.0 % [facility] Hematocrit (Bld) [Volume fraction] 37.3 % 35.0 - 47.0 % [facility] Hemoglobin (Bld) [Mass/Vol] 12.4 g/dL 11.7 - 16.0 g/dL [facility] Immature granulocytes (Bld) [#/Vol] 0.1 10*3/uL High NINF - 0.1 10*3/uL [facility] Immature granulocytes/100 WBC (Bld) 0.7 % 0.0 - 2.0 % [facility] Interpretation and review of laboratory results Abnormal [facility] Lymphocytes (Bld) [#/Vol] 2.5 10*3/uL 1. 0 - 4.3 10*3/uL [facility] Lymphocytes/100 WBC (Bld) 30.3 % 15 .0 - 45.0 % [facility] MCH (RBC) [Entitic mass] 31.9 pg 26. 0 - 34.0 pg [facility] MCHC (RBC) [Mass/Vol] 33.2 % 30.5 - 36.0 % [facility] MCV (RBC) [Entitic vol] 95.9 fL 77.0 - 99.0 fL [facility] Monocytes (Bld) [#/Vol] 1.0 10*3/uL High 0.0 - 0.9 10*3/uL [facility] Monocytes/100 WBC (Bld) 12.0 % 5.0 - 13.0 % [facility] Neutrophils (Bld) [#/Vol] 4.4 10*3/uL 1. 8 - 7.5 10*3/uL [facility] Neutrophils/100 WBC (Bld) 54.3 % 38 .0 - 82.0 % [facility] Nucleated RBC/100 WBC (Bld) [Ratio] 0.0 % [facility] Platelet mean volume (Bld) [Entitic vol] 9.0 fL 9.0 - 12.7 fL [facility] Platelets (Bld) [#/Vol] 249 10*3/uL 140 - 440 10*3/uL [facility] RBC (Bld) [#/Vol] 3.89 10*6/uL 3.80 - 5.2 0 10*6/uL [facility] WBC (Bld) [#/Vol] 8.1 10*3/uL 3.6 - 10.7 10*3/uL [facility] Basophils (Bld) [#/Vol] 0.0 10*3/uL 0.0 - 0.2 10*3/uL [facility] Basophils/100 WBC (Bld) 0.4 % 0.0 - 2.0 % [facility] Eosinophils (Bld) [#/Vol] 0.2 10*3/uL 0. 0 - 0.5 10*3/uL [facility] Eosinophils/100 WBC (Bld) 2.5 % 0.0 - 6.0 % [facility] Erythrocyte distribution width (RBC) [Ratio] 12.5 % 11.5 - 15.0 % [facility] Hematocrit (Bld) [Volume fraction] 39.2 % 35.0 - 47.0 % [facility] Hemoglobin (Bld) [Mass/Vol] 13.5 g/dL 11.7 - 16.0 g/dL [facility] Immature granulocytes (Bld) [#/Vol] 0.0 10*3/uL NINF - 0.1 10*3/uL [facility] Immature granulocytes/100 WBC (Bld) 0.5 % 0.0 - 2.0 % [facility] Interpretation and review of laboratory results Abnormal [facility] th Lymphocytes (Bld) [#/Vol] 2.8 10*3/uL 1. 0 - 4.3 10*3/uL [facility] Lymphocytes/100 WBC (Bld) 33.7 % 15 .0 - 45.0 % [facility] MCH (RBC) [Entitic mass] 33.2 pg 26. 0 - 34.0 pg [facility] MCHC (RBC) [Mass/Vol] 34.4 % 30.5 - 36.0 % [facility] MCV (RBC) [Entitic vol] 96.3 fL 77.0 - 99.0 fL [facility] Monocytes (Bld) [#/Vol] 1.2 10*3/uL High 0.0 - 0.9 10*3/uL [facility] Monocytes/100 WBC (Bld) 14.3 % High 5.0 - 13.0 % [facility] Neutrophils (Bld) [#/Vol] 4.1 10*3/uL 1. 8 - 7.5 10*3/uL [facility] Neutrophils/100 WBC (Bld) 48.6 % 38 .0 - 82.0 % [facility] Nucleated RBC/100 WBC (Bld) [Ratio] 0.0 % [facility] Platelet mean volume (Bld) [Entitic vol] 9.9 fL 9.0 - 12.7 fL [facility] Platelets (Bld) [#/Vol] 331 10*3/uL 140 - 440 10*3/uL [facility] RBC (Bld) [#/Vol] 4.07 10*6/uL 3.80 - 5.2 0 10*6/uL [facility] WBC (Bld) [#/Vol] 8.4 10*3/uL 3.6 - 10.7 10*3/uL [facility] CBC WITH AUTO DIFFERENTIALon 04-11-2024 Basophils (Bld) [#/Vol] 0.0 10*3/uL Normal 0.0-0.2 [facility] Comment on above: Performed By: #### L [id number] ####[employer] Supervisor: SHEEBA MUSTAFA ([phone])[address] Basophils/100 WBC (Bld) 0.4 % Normal 0.0-2.0 S [facility] Comment on above: Performed By: #### L [id number] ####[employer] Supervisor: SHEEBA MUSTAFA ([phone])[facility])[address] [place] [address] Eosinophils (Bld) [#/Vol] 0.2 10*3/uL Normal 0.0-0.5 [facility] Comment on above: Performed By: #### L [id number] ####[employer] Supervisor: SHEEBA MUSTAFA ([phone])[address] Eosinophils/100 WBC (Bld) 2.3 % Normal 0.0-6.0 [facility] Comment on above: Performed By: #### L [id number] ####[employer] Supervisor: SHEEBA MUSTAFA ([phone])[facility])[address] [place] [address] Erythrocyte distribution width (RBC) [Ratio] 12.4 % Normal 11.5-15.0 [facility] Comment on above: Performed By: #### L [id number] ####[employer] Supervisor: SHEEBA MUSTAFA ([phone])[address] Hematocrit (Bld) [Volume fraction] 37.3 % Normal 35.0-47.0 [facility] Comment on above: Performed By: #### L [id number] ####[employer] Supervisor: SHEEBA MUSTAFA ([phone])[address] Hemoglobin (Bld) [Mass/Vol] 12.4 g/dL Normal 11.7-16.0 [facility] Comment on above: Performed By: #### L [id number] ####[employer] Supervisor: SHEEBA MUSTAFA ([phone])[address] IMMATURE GRANS % 0.7 % Normal 0.0-2.0 [facility] Comment on above: Performed By: #### L [id number] ####[employer] Supervisor: SHEEBA MUSTAFA ([phone])[address] IMMATURE GRANS ABSOLUTE 0.1 10*3/uL High <0.1 [facility] Comment on above: Performed By: #### L [id number] ####[employer] Supervisor: SHEEBA MUSTAFA ([phone])[facility])[address] [place] [address] Lymphocytes (Bld) [#/Vol] 2.5 10*3/uL Normal 1.0-4.3 [facility] Comment on above: Performed By: #### L [id number] ####[employer] Supervisor: SHEEBA MUSTAFA ([phone])[facility])[address] [place] [address] Lymphocytes/100 WBC (Bld) 30.3 % Normal 15.0-45.0 [facility] Comment on above: Performed By: #### L [id number] ####[employer] Supervisor: SHEEBA MUSTAFA ([phone])[facility])[address] [place] [address] MCH (RBC) [Entitic mass] 31.9 pg Normal 26.0-34.0 [facility] Comment on above: Performed By: #### L [id number] ####[employer] Supervisor: SHEEBA MUSTAFA ([phone])[facility])[address] [place] [address] MCHC 33.2 % Normal 30.5-36.0 [facility] Comment on above: Performed By: #### L [id number] ####[employer] Supervisor: SHEEBA MUSTAFA ([phone])[facility])[address] [place] [address] MCV (RBC) [Entitic vol] 95.9 fL Normal 77.0-99.0 S [facility] Comment on above: Performed By: #### L [id number] ####[employer] Supervisor: SHEEBA MUSTAFA ([phone])[facility])[address] [place] [address] Monocytes (Bld) [#/Vol] 1.0 10*3/uL High 0.0-0.9 [facility] Comment on above: Performed By: #### L [id number] ####[employer] Supervisor: SHEEBA MUSTAFA ([phone])[facility])[address] [place] [address] Monocytes/100 WBC (Bld) 12.0 % Normal 5.0-13.0 [facility] Comment on above: Performed By: #### L [id number] ####[employer] Supervisor: SHEEBA MUSTAFA ([phone])[facility] ([facility])[address] [place] [address] NEUTROPHILS ABSOLUTE 4.4 10*3/uL Normal 1.8-7.5 [facility] Comment on above: Performed By: #### L [id number] ####[employer] Supervisor: SHEEBA MUSTAFA ([phone])[facility] ([facility])[address] [place] [address] Neutrophils/100 WBC (Bld) 54.3 % Normal 38.0-82.0 [facility] Comment on above: Performed By: #### L [id number] ####[employer] Supervisor: SHEEBA MUSTAFA ([phone])[facility] ([facility])[address] [place] [address] NRBC 0.0 /100 WBCs Normal 0.0-2.0 [facility] Comment on above: Performed By: #### L [id number] ####[employer] Supervisor: SHEEBA MUSTAFA ([phone])[facility] ([facility])[address] [place] [address] Platelet mean volume (Bld) [Entitic vol] 9.0 fL Normal 9.0-12.7 [facility] Comment on above: Performed By: #### L [id number] ####[employer] Supervisor: SHEEBA MUSTAFA ([phone])[facility] ([facility])[address] [place] [address] Platelets (Bld) [#/Vol] 249 10*3/uL Normal 140-440 [facility] Comment on above: Performed By: #### L [id number] ####[employer] Supervisor: SHEEBA MUSTAFA ([phone])[facility] ([facility])[address] [place] [address] RBC (Bld) [#/Vol] 3.89 10*6/uL Normal 3.80-5.20 [facility] Comment on above: Performed By: #### L [id number] ####[employer] Supervisor: SHEEBA MUSTAFA ([phone])[facility])[address] [place] [address] WBC (Bld) [#/Vol] 8.1 10*3/uL Normal 3.6-10.7 [facility] Comment on above: Performed By: #### L [id number] ####[employer] Supervisor: SHEEBA MUSTAFA ([phone])[facility])[address] [place] [address] Basophils (Bld) [#/Vol] 0.0 10*3/uL Normal 0.0-0.2 [facility] Comment on above: Performed By: #### L [id number] ####[employer] Supervisor: SHEEBA MUSTAFA ([phone])[facility])[address] [place] [address] Basophils/100 WBC (Bld) 0.4 % Normal 0.0-2.0 [facility] Comment on above: Performed By: #### L [id number] ####[employer] Supervisor: SHEEBA MUSTAFA ([phone])[facility])[address] [place] [address] Eosinophils (Bld) [#/Vol] 0.2 10*3/uL Normal 0.0-0.5 [facility] Comment on above: Performed By: #### L [id number] ####[employer] Supervisor: SHEEBA MUSTAFA ([phone])[facility])[address] [place] [address] Eosinophils/100 WBC (Bld) 2.5 % Normal 0.0-6.0 [facility] Comment on above: Performed By: #### L [id number] ####[employer] Supervisor: SHEEBA MUSTAFA ([phone])[facility])[address] [place] [address] Erythrocyte distribution width (RBC) [Ratio] 12.5 % Normal 11.5-15.0 [facility] Comment on above: Performed By: #### L [id number] ####[employer] Supervisor: SHEEBA MUSTAFA ([phone])[facility])[address] [place] [address] Hematocrit (Bld) [Volume fraction] 39.2 % Normal 35.0-47.0 [facility] Comment on above: Performed By: #### L [id number] ####[employer] Supervisor: SHEEBA MUSTAFA ([phone])[facility] ([facility])[address] [place] [address] Hemoglobin (Bld) [Mass/Vol] 13.5 g/dL Normal 11.7-16.0 [facility] Comment on above: Performed By: #### L [id number] ####[employer] Supervisor: SHEEBA MUSTAFA ([phone])[facility])[address] [place] [address] IMMATURE GRANS % 0.5 % Normal 0.0-2.0 [facility] Comment on above: Performed By: #### L [id number] ####[employer] Supervisor: SHEEBA MUSTAFA ([phone])[facility] ([facility])[address] [place] [address] IMMATURE GRANS ABSOLUTE 0.0 10*3/uL Normal <0.1 [facility] Comment on above: Performed By: #### L [id number] ####[employer] Supervisor: SHEEBA MUSTAFA ([phone])[facility])[address] [place] [address] Lymphocytes (Bld) [#/Vol] 2.8 10*3/uL Normal 1.0-4.3 [facility] Comment on above: Performed By: #### L [id number] ####[employer] Supervisor: SHEEBA MUSTAFA ([phone])[facility])[address] [place] [address] Lymphocytes/100 WBC (Bld) 33.7 % Normal 15.0-45.0 [facility] Comment on above: Performed By: #### L [id number] ####[employer] Supervisor: SHEEBA MUSTAFA ([phone])[facility])[address] [place] [address] MCH (RBC) [Entitic mass] 33.2 pg Normal 26.0-34.0 [facility] Comment on above: Performed By: #### L [id number] ####[employer] Supervisor: SHEEBA MUSTAFA ([phone])[facility])[address] [place] [address] MCHC 34.4 % Normal 30.5-36.0 [facility] Comment on above: Performed By: #### L [id number] ####[employer] Supervisor: SHEEBA MUSTAFA ([phone])[facility])[address] [place] [address] MCV (RBC) [Entitic vol] 96.3 fL Normal 77.0-99.0 S [facility] Comment on above: Performed By: #### L [id number] ####[employer] Supervisor: SHEEBA MUSTAFA ([phone])[facility] ([facility])[address] [place] [address] Monocytes (Bld) [#/Vol] 1.2 10*3/uL High 0.0-0.9 [facility] Comment on above: Performed By: #### L [id number] ####[employer] Supervisor: SHEEBA MUSTAFA ([phone])[facility])[address] [place] [address] Monocytes/100 WBC (Bld) 14.3 % High 5.0-13.0 S [facility] Comment on above: Performed By: #### L [id number] ####[employer] Supervisor: SHEEBA MUSTAFA ([phone])[facility])[address] [place] [address] NEUTROPHILS ABSOLUTE 4.1 10*3/uL Normal 1.8-7.5 [facility] Comment on above: Performed By: #### L [id number] ####[employer] Supervisor: SHEEBA MUSTAFA ([phone])[facility])[address] [place] [address] Neutrophils/100 WBC (Bld) 48.6 % Normal 38.0-82.0 [facility] Comment on above: Performed By: #### L [id number] ####[employer] Supervisor: SHEEBA MUSTAFA ([phone])[facility] ([facility])[address] [place] [address] NRBC 0.0 /100 WBCs Normal 0.0-2.0 [facility] Comment on above: Performed By: #### L [id number] ####[employer] Supervisor: SHEEBA MUSTAFA ([phone])[facility] ([facility])[address] [place] [address] Platelet mean volume (Bld) [Entitic vol] 9.9 fL Normal 9.0-12.7 [facility] Comment on above: Performed By: #### L [id number] ####[employer] Supervisor: SHEEBA MUSTAFA ([phone])[facility] ([facility])[address] [place] [address] Platelets (Bld) [#/Vol] 331 10*3/uL Normal 140-440 [facility] Comment on above: Performed By: #### L [id number] ####[employer] Supervisor: SHEEBA MUSTAFA ([phone])[facility] ([facility])[address] [place] [address] RBC (Bld) [#/Vol] 4.07 10*6/uL Normal 3.80-5.20 [facility] Comment on above: Performed By: #### L [id number] ####[employer] Supervisor: SHEEBA MUSTAFA ([phone])[facility] ([facility])[address] [place] [address] WBC (Bld) [#/Vol] 8.4 10*3/uL Normal 3.6-10.7 [facility] Comment on above: Performed By: #### L [id number] ####[employer] Supervisor: SHEEBA MUSTAFA ([phone])[facility] ([facility])[address] [place] [address] Consulton 04-11-2024 Consult Normal [facility] LACTIC ACID WITH REFLEXon Lactate [Moles/Vol] 0.6 mmol/L Low 0.7-2.0 [facility] Comment on above: Performed By: #### L [id number] ####[employer] Supervisor: SHEEBA MUSTAFA ([phone])[facility] ([facility])[address] Laboratory - Chemistry and C hemistry - challengeon 04-11-2024 Lactate [Moles/Vol] 0.6 mmol/L Low 0.7 - 2. 0 mmol/L [facility] Glucose [Mass/Vol] 103 mg/dL High 70 - 100 mg/dL [facility] No Panel Informationon 04-11 Interpretation and review of laboratory results Abnormal [facility] Interpretation and review of laboratory results Abnormal [facility] Performed by: [facility], [address] [address] CLIA ID: [id number] [facility] Nursing Noteon 04-11-2024 Nursing Note Patient noted to be diaphoretic, clammy, and stated she felt woozy. BGT 103. BP 100/47 map 65. Pulse 51. Temp 98.2 oral and resps even and unlabored. USACS paged and lactic + 1000ml NS bolus ordered. Normal [facility] Nursing Note Jones cath discontinued. 300 cc clear yellow urine in bag. Aisha well. Normal [facility] Progress Noteon 04-11-2024 Progress Note Normal [facility] Progress Note Normal [facility] CBC W Auto Differential pane l (Bld)on 04-10-2024 Basophils (Bld) [#/Vol] 0.0 10*3/uL 0.0 - 0.2 10*3/uL [facility] Basophils/100 WBC (Bld) 0.4 % 0.0 - 2.0 % [facility] Eosinophils (Bld) [#/Vol] 0.2 10*3/uL 0. 0 - 0.5 10*3/uL [facility] Eosinophils/100 WBC (Bld) 2.4 % 0.0 - 6.0 % [facility] Erythrocyte distribution width (RBC) [Ratio] 12.4 % 11.5 - 15.0 % [facility] Hematocrit (Bld) [Volume fraction] 40.6 % 35.0 - 47.0 % [facility] Hemoglobin (Bld) [Mass/Vol] 13.6 g/dL 11.7 - 16.0 g/dL [facility] Immature granulocytes (Bld) [#/Vol] 0.1 10*3/uL High NINF - 0.1 10*3/uL [facility] Immature granulocytes/100 WBC (Bld) 1.0 % 0.0 - 2.0 % [facility] Interpretation and review of laboratory results Abnormal [facility] th Lymphocytes (Bld) [#/Vol] 2.4 10*3/uL 1. 0 - 4.3 10*3/uL [facility] Lymphocytes/100 WBC (Bld) 29.6 % 15 .0 - 45.0 % [facility] MCH (RBC) [Entitic mass] 32.4 pg 26. 0 - 34.0 pg [facility] MCHC (RBC) [Mass/Vol] 33.5 % 30.5 - 36.0 % [facility] MCV (RBC) [Entitic vol] 96.7 fL 77.0 - 99.0 fL [facility] Monocytes (Bld) [#/Vol] 1.1 10*3/uL High 0.0 - 0.9 10*3/uL [facility] Monocytes/100 WBC (Bld) 14.0 % High 5.0 - 13.0 % [facility] Neutrophils (Bld) [#/Vol] 4.2 10*3/uL 1. 8 - 7.5 10*3/uL [facility] Neutrophils/100 WBC (Bld) 52.6 % 38 .0 - 82.0 % [facility] Nucleated RBC/100 WBC (Bld) [Ratio] 0.0 % [facility] Platelet mean volume (Bld) [Entitic vol] 8.9 fL Low 9.0 - 12.7 fL [facility] Platelets (Bld) [#/Vol] 273 10*3/uL 140 - 440 10*3/uL [facility] RBC (Bld) [#/Vol] 4.20 10*6/uL 3.80 - 5.2 0 10*6/uL [facility] WBC (Bld) [#/Vol] 8.0 10*3/uL 3.6 - 10.7 10*3/uL [facility] CBC WITH AUTO DIFFERENTIALon 04-10-2024 Basophils (Bld) [#/Vol] 0.0 10*3/uL Normal 0.0-0.2 [facility] Comment on above: Performed By: #### L [id number] ####[employer] Supervisor: ROSETTE ZHAO ([phone])[facility] ([facility])[address] Basophils/100 WBC (Bld) 0.4 % Normal 0.0-2.0 [facility] Comment on above: Performed By: #### L [id number] ####[employer] Supervisor: ROSETTE ZHAO ([phone])[facility] [place] ([facility])[address] Eosinophils (Bld) [#/Vol] 0.2 10*3/uL Normal 0.0-0.5 [facility] Comment on above: Performed By: #### L [id number] ####[employer] Supervisor: ROSETTE ZHAO ([phone])[facility] [place] ([facility])[address] Eosinophils/100 WBC (Bld) 2.4 % Normal 0.0-6.0 [facility] Comment on above: Performed By: #### L [id number] ####[employer] Supervisor: ROSETTE ZHAO ([phone])[facility] [place] ([facility])[address] Erythrocyte distribution width (RBC) [Ratio] 12.4 % Normal 11.5-15.0 [facility] Comment on above: Performed By: #### L [id number] ####[employer] Supervisor: ROSETTE ZHAO ([phone])[facility] [place] ([facility])[address] Hematocrit (Bld) [Volume fraction] 40.6 % Normal 35.0-47.0 [facility] Comment on above: Performed By: #### L [id number] ####[employer] Supervisor: ROSETTE ZHAO ([phone])[facility] [place] ([facility])[address] Hemoglobin (Bld) [Mass/Vol] 13.6 g/dL Normal 11.7-16.0 [facility] Comment on above: Performed By: #### L [id number] ####[employer] Supervisor: ROSETTE ZHAO ([phone])[facility] ([facility])[address] IMMATURE GRANS % 1.0 % Normal 0.0-2.0 [facility] Comment on above: Performed By: #### L [id number] ####[employer] Supervisor: ROSETTE ZHAO ([phone])[facility] IMMATURE GRANS ABSOLUTE 0.1 10*3/uL High <0.1 [facility] Comment on above: Performed By: #### L [id number] ####[employer] Supervisor: ROSETTE ZHAO ([phone])[facility] ([facility])[address] Lymphocytes (Bld) [#/Vol] 2.4 10*3/uL Normal 1.0-4.3 [facility] Comment on above: Performed By: #### L [id number] ####[employer] Supervisor: ROSETTE ZHAO ([phone])[facility] ([facility])[address] [place] [address] Lymphocytes/100 WBC (Bld) 29.6 % Normal 15.0-45.0 [facility] Comment on above: Performed By: #### L [id number] ####[employer] Supervisor: ROSETTE ZHAO ([phone])[facility] ([facility])[address] MCH (RBC) [Entitic mass] 32.4 pg Normal 26.0-34.0 [facility] Comment on above: Performed By: #### L [id number] ####[employer] Supervisor: ROSETTE ZHAO ([phone])[facility] ([facility])[address] MCHC 33.5 % Normal 30.5-36.0 [facility] Comment on above: Performed By: #### L [id number] ####[employer] Supervisor: ROSETTE MNOTALVOVIK ([phone])[facility] ([facility])[address] MCV (RBC) [Entitic vol] 96.7 fL Normal 77.0-99.0 S [facility] Comment on above: Performed By: #### L [id number] ####[employer] Supervisor: ROSETTE ZHAO ([phone])[facility] ([facility])[address] Monocytes (Bld) [#/Vol] 1.1 10*3/uL High 0.0-0.9 [facility] Comment on above: Performed By: #### L [id number] ####[employer] Supervisor: ROSETTE ZHAO ([phone])[facility] ([facility])[address] Monocytes/100 WBC (Bld) 14.0 % High 5.0-13.0 [facility] Comment on above: Performed By: #### L [id number] ####[employer] Supervisor: ROSETTE ZHAO ([phone])[facility] ([facility])[address] NEUTROPHILS ABSOLUTE 4.2 10*3/uL Normal 1.8-7.5 [facility] Comment on above: Performed By: #### L [id number] ####[employer] Supervisor: ROSETTE ZHAO ([phone])[facility] ([facility])[address] Neutrophils/100 WBC (Bld) 52.6 % Normal 38.0-82.0 [facility] Comment on above: Performed By: #### L [id number] ####[employer] Supervisor: ROSETTE ZHAO ([phone])[facility] ([facility])[address] NRBC 0.0 /100 WBCs Normal 0.0-2.0 [facility] Comment on above: Performed By: #### L [id number] ####[employer] Supervisor: ROSETTE MONTALVOVIK ([phone])[facility] S[facility]THYamile[facility]N ([facility])[address] Platelet mean volume (Bld) [Entitic vol] 8.9 fL Low 9.0-12.7 [facility] Comment on above: Performed By: #### L [id number] ####[employer] Supervisor: ROSETTE ZHAO ([phone])[facility] S[facility]TH[facility]am[facility] ([facility])[address] Platelets (Bld) [#/Vol] 273 10*3/uL Normal 140-440 [facility] Comment on above: Performed By: #### L [id number] ####[employer] Supervisor: ROSETTE ZHAO ([phone])[facility] ([facility])[address] RBC (Bld) [#/Vol] 4.20 10*6/uL Normal 3.80-5.20 [facility] Comment on above: Performed By: #### L [id number] ####[employer] Supervisor: ROSETTE ZHAO ([phone])[facility] ([facility])[address] [place] [address] WBC (Bld) [#/Vol] 8.0 10*3/uL Normal 3.6-10.7 [facility] Comment on above: Performed By: #### L [id number] ####[employer] Supervisor: ROSETTE ZHAO ([phone])[facility] ([facility])[address] CKon 04-10-2024 CK [Catalytic activity/Vol] 29 U/L Low 30-170 [facility] Comment on above: Performed By: #### L [id number], [id number], [id number], [id number] ####[employer] Supervisor: ROSETTE ZHAO ([phone])[facility] ([facility])[address] COMPLETE URINALYSISon 2023 BILIRUBIN, TOTAL PRESENCE IN URINE Negative Normal Negative [facility] Comment on above: Performed By: #### L [id number] ####[employer] Supervisor: ROSETTE ZHAO ([phone])[facility] ([facility])[address] Clarity (U) Turbid Abnormal Clear [facility] Comment on above: Performed By: #### L [id number] ####[employer] Supervisor: ROSETTE ZHAO ([phone])[facility] ([facility])[address] Color (U) Colorless Normal Lt. Yellow [facility] Comment on above: Performed By: #### L [id number] ####[employer] Supervisor: ROSETTE ZHAO ([phone])[facility] ([facility])[address] GLUCOSE (MG/DL) IN URINE Normal Normal Normal (<70 ) [facility] Comment on above: Performed By: #### L [id number] ####[employer] Supervisor: ROSETTE ZHAO ([phone])[facility] ([facility])[address] HEMOGLOBIN PRESENCE IN URINE Negative Normal Negative [facility] Comment on above: Performed By: #### L [id number] ####[employer] Supervisor: ROSETTE ZHAO ([phone])[facility] ([facility])[address] [place] [address] [place] Ketones Ql (U) Negative Normal Negative [facility] Comment on above: Performed By: #### L [id number] ####[employer] Supervisor: ROSETTE ZHAO ([phone])[facility] ([facility])[address] LEUKOCYTE ESTERASE PRESENCE IN URINE BY TEST STRIP Negative Normal Negative [facility] Comment on above: Performed By: #### L AB347 ####[employer] Supervisor: ROSETTE ZHAO ([phone])[facility] ([facility])[address] NITRITE PRESENCE IN URINE Negative Normal Negative [facility] Comment on above: Performed By: #### L [id number] ####[employer] Supervisor: ROSETTE ZHAO ([phone])[facility] ([facility])[address] pH (U) 7.0 [pH] Normal 5.0-8.0 [facility] Comment on above: Performed By: #### L AB347 ####[employer] Supervisor: ROSETTE ZHAO ([phone])[facility] Protein (U) [Mass/Vol] Negative Normal Negative [facility] Comment on above: Performed By: #### L AB347 ####[employer] Supervisor: ROSETTE ZHAO ([phone])[facility] Specific gravity (U) [Rel density] 1.009 Normal 1.005-1.030 [facility] Comment on above: Performed By: #### L AB347 ####[employer] Supervisor: ROSETTE ZHAO ([phone])[facility] [place] [address] UROBILINOGEN (MG/DL) IN URINE Normal Normal Normal (0-1) [facility] Comment on above: Performed By: #### L AB347 ####[employer] Supervisor: ROSETTE ZHAO ([phone])[facility] COMPREHENSIVE METABOLIC PANE Hua 04-10-2024 Albumin [Mass/Vol] 3.1 g/dL Low 3.5-5.0 [facility] Comment on above: Performed By: #### L AB103, [id number], LAB62, LAB17 ####[employer] Supervisor: ROSETTE ZHAO ([phone])[facility] ([facility])[address] ALP [Catalytic activity/Vol] 78 U/L Normal 38-126 [facility] Comment on above: Performed By: #### L AB103, [id number], LAB62, LAB17 ####[employer] Supervisor: ROSETTE ZHAO ([phone])[facility] ([facility])[address] ALT [Catalytic activity/Vol] 19 U/L Normal 0-34 [facility] Comment on above: Performed By: #### L AB103, [id number], LAB62, LAB17 ####[employer] Supervisor: ROSETTE ZHAO ([phone])[facility] ([facility])[address] Anion gap [Moles/Vol] 6 mmol/L Normal 3-13 [facility] Comment on above: Performed By: #### L AB103, [id number], LAB62, LAB17 ####[employer] Supervisor: ROSETTE ZHAO ([phone])[facility] ([facility])[address] AST [Catalytic activity/Vol] 24 U/L Normal 15-46 [facility] Comment on above: Performed By: #### L AB103, [id number], LAB62, LAB17 ####[employer] Supervisor: ROSETTE ZHAO ([phone])[facility] ([facility])[address] Bilirubin [Mass/Vol] 0.4 mg/dL Normal 0.2-1.3 [facility] Comment on above: Performed By: #### L AB103, [id number], LAB62, LAB17 ####[employer] Supervisor: ROSETTE ZHAO ([phone])[facility] ([facility])[address] Calcium [Mass/Vol] 9.1 mg/dL Normal 8.4-10.4 [facility] Comment on above: Performed By: #### L AB103, [id number], LAB62, LAB17 ####[employer] Supervisor: ROSETTE ZHAO ([phone])[facility] ([facility])[address] Chloride [Moles/Vol] 105 mmol/L Normal 98-107 [facility] Comment on above: Performed By: #### L ABJody, [id number], LAB62, LAB17 ####[employer] Supervisor: ROSETTE ZHAO ([phone])[facility] ([facility])[address] CO2 [Moles/Vol] 24 mmol/L Normal 22-30 [facility] Comment on above: Performed By: #### L AB103, [id number], LAB62, LAB17 ####[employer] Supervisor: ROSETTE ZHAO ([phone])[facility] (HLAB)[address] Creatinine [Mass/Vol] 1.03 mg/dL Normal 0.52-1.04 [facility] Comment on above: Performed By: #### Albert BERNARDO, [id number], LAB62, LAB17 ####[employer] Supervisor: ROSETTE ZHAO ([phone])[facility] ([facility]AB)[address] GLOMERULAR FILTRATION RATE ML/MIN/1.73 SQ M.PREDICTED 54.4 mL/min/1.73m*2 Low >60.0 [facility] Comment on above: Result Comment: Calc ulation based on the Chronic Kidney Disease Epidemiology Collaboration (CKD-EPI) equation refit without adjustment for race Performed By: #### L AB103, [id number], LAB62, LAB17 ####[employer] Supervisor: ROSETTE ZHAO ([phone])[facility] ([facility])[address] Glucose [Mass/Vol] 94 mg/dL Normal 70-100 [facility] Comment on above: Performed By: #### L AB103, [id number], LAB62, LAB17 ####[employer] Supervisor: ROSETTE ZHAO ([phone])[facility] ([facility])[address] Potassium [Moles/Vol] 4.4 mmol/L Normal 3.5-5.1 [facility] Comment on above: Performed By: #### L AB103, [id number], LAB62, LAB17 ####[employer] Supervisor: ROSETTE ZHAO ([phone])[facility] (HLAB)[address] Protein [Mass/Vol] 5.8 g/dL Low 6.3-8.2 [facility] Comment on above: Performed By: #### L AB103, [id number], LAB62, LAB17 ####[employer] Supervisor: ROSETTE ZHAO ([phone])[facility] Sodium [Moles/Vol] 135 mmol/L Normal 135-145 [facility] Comment on above: Performed By: #### L AB103, [id number], LAB62, LAB17 ####[employer] Supervisor: ROSETTE ZHAO ([phone])[facility] Urea nitrogen [Mass/Vol] 23 mg/dL High 7-17 [facility] Comment on above: Performed By: #### L AB103, [id number], LAB62, LAB17 ####[employer] Supervisor: ROSETTE ZHAO ([phone])[facility] ABDOMEN PELVIS WO IV CONT RASTon 04-10-2024 CT ABDOMEN PELVIS WO IV CONTRAST Normal [facility] CT Abdomen WO contraston Patient Name: SOMMER FRIEDMAN : 1940 Exam Date/Time: 04/10/2024 14:26 Procedure: CT ABDOMEN PELVIS WO IV CONTRAST Ordering Provider: DEMPSEY TARAS Reason For Exam: Abdominal pain, acute, nonlocalized EXAMINATION: CT ABDOMEN PELVIS WO IV CONTRAST, CT LUMBAR SPINE WO IV CONTRAST CLINICAL HISTORY: Abdominal pain, acute, nonlocalized COMPARISON: None fall with back pain several days ago TECHNIQUE: CT of the abdomen and pelvis without contrast. CT of the lumbar spine without contrast. Dose reduction was employed with automated exposure control. FINDINGS: Included images of the lower thorax: No focal lung consolidation or pleural effusion. The heart is enlarged. Coronary artery calcifications are present. Trace right pleural fluid. Hepatobiliary: Unremarkable liver without biliary dilation evident. Pancreas: Unremarkable Spleen: Unremarkable Adrenal Glands: Unremarkable Kidneys and ureters: No calculi or hydroureteronephrosi s. Abdominal vasculature: Severe atherosclerotic disease. Probable high-grade stenosis of the iliac arteries and possibly of the SMA and renal arteries. GI tract: No evidence of obstruction. Colonic diverticulosis is present without evidence for diverticulitis. Hiatal hernia. Peritoneum and retroperitoneum: No free fluid or free air is noted. Lymph Nodes: No abdominal lymphadenopathy is evident. Pelvis: Status post hysterectomy. Visualized musculoskeletal structures: Remote ORIF of the right femur. Acute incomplete burst fracture of the L1 superior endplate with retropulsed bone producing approximately rsjw-pw-hmabbgrx spinal stenosis. Mild paraspinal soft tissue swelling. No other acute fractures identified. Lumbar spinal alignment is anatomic. There is moderate degenerative spinal stenosis at L4-5. [facility] Kathi Browne MD - 04/10/2024 Patient Name: SOMMER FRIEDMAN : 1940 [facility]#: [id number] Exam Date/Time: 04/10/2024 14:26 Procedure: CT ABDOMEN PELVIS WO IV CONTRAST Ordering Provider: DEMPSEY TARAS Reason For Exam: Abdominal pain, acute, nonlocalized EXAMINATION: CT ABDOMEN PELVIS WO IV CONTRAST, CT LUMBAR SPINE WO IV CONTRAST CLINICAL HISTORY: Abdominal pain, acute, nonlocalized COMPARISON: None fall with back pain several days ago TECHNIQUE: CT of the abdomen and pelvis without contrast. CT of the lumbar spine without contrast. Dose reduction was employed with automated exposure control. FINDINGS: Included images of the lower thorax: No focal lung consolidation or pleural effusion. The heart is enlarged. Coronary artery calcifications are present. Trace right pleural fluid. Hepatobiliary: Unremarkable liver without biliary dilation evident. Pancreas: Unremarkable Spleen: Unremarkable Adrenal Glands: Unremarkable Kidneys and ureters: No calculi or hydroureteronephrosi s. Abdominal vasculature: Severe atherosclerotic disease. Probable high-grade stenosis of the iliac arteries and possibly of the SMA and renal arteries. GI tract: No evidence of obstruction. Colonic diverticulosis is present without evidence for diverticulitis. Hiatal hernia. Peritoneum and retroperitoneum: No free fluid or free air is noted. Lymph Nodes: No abdominal lymphadenopathy is evident. Pelvis: Status post hysterectomy. Visualized musculoskeletal structures: Remote ORIF of the right femur. Acute incomplete burst fracture of the L1 superior endplate with retropulsed bone producing approximately ksti-hg-xqzohqwo spinal stenosis. Mild paraspinal soft tissue swelling. No other acute fractures identified. Lumbar spinal alignment is anatomic. There is moderate degenerative spinal stenosis at L4-5. IMPRESSION: 1. Acute incomplete burst fracture of the L1 superior endplate with mild vertebral height loss. Bony retropulsion produces dnry-qu-akurlmou spinal stenosis at the T12-L1 level. 2. No intra-abdominal traumatic injuries. 3. Moderate degenerative spinal stenosis at L4-5. 4. Severe atherosclerotic disease with probable high-grade stenosis of the iliac arteries and possibly the mesenteric and renal arteries. Report Dictated on Electronically Signed By: Kathi Browne MD Electronically Signed Date/Time: 04/10/2024 3:03 PM EDT [facility] Radiology Study observation (narrative) [facility] CT LUMBAR SPINE WO IV CONTRA STon 04-10-2024 CT LUMBAR SPINE WO IV CONTRAST Normal [facility] CT Lumbar spine WO contrasto n 04-10-2024 [facility] 1940 [id number] Exam Date/Time: 04/10/2024 14:26 Procedure: CT LUMBAR SPINE WO IV CONTRAST Ordering Provider: DEMPSEY TARAS Reason For Exam: Low back pain, increased fracture risk EXAMINATION: CT ABDOMEN PELVIS WO IV CONTRAST, CT LUMBAR SPINE WO IV CONTRAST CLINICAL HISTORY: Abdominal pain, acute, nonlocalized COMPARISON: None fall with back pain several days ago TECHNIQUE: CT of the abdomen and pelvis without contrast. CT of the lumbar spine without contrast. Dose reduction was employed with automated exposure control. FINDINGS: Included images of the lower thorax: No focal lung consolidation or pleural effusion. The heart is enlarged. Coronary artery calcifications are present. Trace right pleural fluid. Hepatobiliary: Unremarkable liver without biliary dilation evident. Pancreas: Unremarkable Spleen: Unremarkable Adrenal Glands: Unremarkable Kidneys and ureters: No calculi or hydroureteronephrosi s. Abdominal vasculature: Severe atherosclerotic disease. Probable high-grade stenosis of the iliac arteries and possibly of the SMA and renal arteries. GI tract: No evidence of obstruction. Colonic diverticulosis is present without evidence for diverticulitis. Hiatal hernia. Peritoneum and retroperitoneum: No free fluid or free air is noted. Lymph Nodes: No abdominal lymphadenopathy is evident. Pelvis: Status post hysterectomy. Visualized musculoskeletal structures: Remote ORIF of the right femur. Acute incomplete burst fracture of the L1 superior endplate with retropulsed bone producing approximately xgpx-bk-tnynyqhh spinal stenosis. Mild paraspinal soft tissue swelling. No other acute fractures identified. Lumbar spinal alignment is anatomic. There is moderate degenerative spinal stenosis at L4-5. [facility] Kathi Browne MD - 04/10/2024 [facility] Name: SOMMER [facility]RIED[facility] 1940 [id number] Exam Date/Time: 04/10/2024 14:26 Procedure: CT LUMBAR SPINE WO IV CONTRAST Ordering Provider: DEMPSEY TARAS Reason For Exam: Low back pain, increased fracture risk EXAMINATION: CT ABDOMEN PELVIS WO IV CONTRAST, CT LUMBAR SPINE WO IV CONTRAST CLINICAL HISTORY: Abdominal pain, acute, nonlocalized COMPARISON: None fall with back pain several days ago TECHNIQUE: CT of the abdomen and pelvis without contrast. CT of the lumbar spine without contrast. Dose reduction was employed with automated exposure control. FINDINGS: Included images of the lower thorax: No focal lung consolidation or pleural effusion. The heart is enlarged. Coronary artery calcifications are present. Trace right pleural fluid. Hepatobiliary: Unremarkable liver without biliary dilation evident. Pancreas: Unremarkable Spleen: Unremarkable Adrenal Glands: Unremarkable Kidneys and ureters: No calculi or hydroureteronephrosi s. Abdominal vasculature: Severe atherosclerotic disease. Probable high-grade stenosis of the iliac arteries and possibly of the SMA and renal arteries. GI tract: No evidence of obstruction. Colonic diverticulosis is present without evidence for diverticulitis. Hiatal hernia. Peritoneum and retroperitoneum: No free fluid or free air is noted. Lymph Nodes: No abdominal lymphadenopathy is evident. Pelvis: Status post hysterectomy. Visualized musculoskeletal structures: Remote ORIF of the right femur. Acute incomplete burst fracture of the L1 superior endplate with retropulsed bone producing approximately sajn-nz-blaelsei spinal stenosis. Mild paraspinal soft tissue swelling. No other acute fractures identified. Lumbar spinal alignment is anatomic. There is moderate degenerative spinal stenosis at L4-5. IMPRESSION: 1. Acute incomplete burst fracture of the L1 superior endplate with mild vertebral height loss. Bony retropulsion produces nfpf-er-drqrdork spinal stenosis at the T12-L1 level. 2. No intra-abdominal traumatic injuries. 3. Moderate degenerative spinal stenosis at L4-5. 4. Severe atherosclerotic disease with probable high-grade stenosis of the iliac arteries and possibly the mesenteric and renal arteries. Report Dictated on Electronically Signed By: Kathi Browne MD Electronically Signed Date/Time: 04/10/2024 3:03 PM EDT [facility] Radiology Study observation (narrative) [facility] Comprehensive metabolic 1998 panelon 04-10-2024 Albumin [Mass/Vol] 3.1 g/dL Low 3.5 - 5.0 g/dL [facility] ALP [Catalytic activity/Vol] 78 U/L 38 - 126 U/L [facility] ALT [Catalytic activity/Vol] 19 U/L 0 - 34 U/L [facility] Anion gap [Moles/Vol] 6 mmol/L 3 - 13 mmol/L [facility] AST [Catalytic activity/Vol] 24 U/L 15 - 46 U/L [facility] Bilirubin [Mass/Vol] 0.4 mg/dL 0.2 - 1 .3 mg/dL [facility] Calcium [Mass/Vol] 9.1 mg/dL 8.4 - 10. 4 mg/dL [facility] Chloride [Moles/Vol] 105 mmol/L 98 - 10 7 mmol/L [facility] CO2 [Moles/Vol] 24 mmol/L 22 - 30 mmol/L [facility] Creatinine [Mass/Vol] 1.03 mg/dL 0.52 - 1.04 mg/dL [facility] GFR/1.73 sq M.predicted (S/P/Bld) [Vol rate/Area] 54.4 mL/min Low - PINF [facility] Comment on above: Calculation based on the Chronic Kidney Disease Epidemiology Collaboration (CKD-EPI) equation refit without adjustment for race Glucose [Mass/Vol] 94 mg/dL 70 - 100 mg/dL [facility] Potassium [Moles/Vol] 4.4 mmol/L 3.5 - 5.1 mmol/L [facility] Protein [Mass/Vol] 5.8 g/dL Low 6.3 - 8.2 g/dL [facility] Sodium [Moles/Vol] 135 mmol/L 135 - 145 mmol/L [facility] Urea nitrogen [Mass/Vol] 23 mg/dL High 7 - 17 mg/d L [facility] Consulton 04-10-2024 Consult Normal [facility] ECG 12-LEADon 04-10-2024 ECG 12-LEAD Normal [facility] ED Nursing Noteon 04-10-2024 ED Nursing Note NEOAS arrives and report given. Patient loaded and sent. Renny Mahmood RN 04/10/24 1850 Normal [facility] ED Nursing Note Report called to [address] for room 509-A. Renny Mahmood RN 04/10/24 2784 Normal [facility] ED Nursing Note Pt fall was on 03/29. Pt had 2 XRs and both negative. Sugar Adler RN 04/10/24 1401 Normal [facility] ED Nursing Note Patient arrives via ambulance from SNF due to lower back pain caused by a fall several days ago. Patient has dementia and is a poor historian. Normal [facility] ED Provider Noteon ED Provider Note Normal [facility] Laboratory - Chemistry and C hemistry - challengeon 04-10-2024 Troponin I.cardiac [Mass/Vol] ng/mL NINF - 0.034 ng/mL [facility] CK [Catalytic activity/Vol] 29 U/L Low 30 - 170 U/L [facility] Magnesium [Mass/Vol] 2.0 mg/dL 1.6 - 2 .3 mg/dL [facility] MAGNESIUMon 04-10-2024 Magnesium [Mass/Vol] 2.0 mg/dL Normal 1.6-2.3 [facility] Comment on above: Performed By: #### L AB103, [id number], LAB62, LAB17 ####[employer] Supervisor: ROSETTE ZHAO ([phone])[facility] ([facility])[address] [place] [address] Magnesium [Mass/Vol]on 04-10 Interpretation and review of laboratory results Normal [facility] No Panel Informationon 04-10 P [place] 46 degrees [facility] CT Interval 146 ms [facility] QRS [place] -27 degrees [facility] QRSD Interval 77 ms [facility] h QT Interval 583 ms [facility] QTC Interval 519 ms [facility] T Wave [place] 69 degrees [facility] Sinus bradycardia Left ventricular hypertrophy Anterior Q waves, possibly due to LVH Prolonged QT interval EKG per my interpretation shows a sinus bradycardia at a rate of 48 with a left axis deviation. There is J-point elevation in V2 only. There were no reciprocal changes. There is no ST elevation or ST depression otherwise. There may be LVH. Intervals are within normal limits although QT may be slightly prolonged. There is no old EKG available for comparison. Electronically Signed On 04-10-2024 15:24:13 EDT by Dakota Conley MD - 04/10/2024 IMPRESSION: Sinus bradycardia Left ventricular hypertrophy Anterior Q waves, possibly due to LVH Prolonged QT interval EKG per my interpretation shows a sinus bradycardia at a rate of 48 with a left axis deviation. There is J-point elevation in V2 only. There were no reciprocal changes. There is no ST elevation or ST depression otherwise. There may be LVH. Intervals are within normal limits although QT may be slightly prolonged. There is no old EKG available for comparison. Electronically Signed On 04-10-2024 15:24:13 EDT by Dakota Dempsey [facility] Interpretation and review of laboratory results Abnormal [facility] 1. Acute incomplete burst fracture of the L1 superior endplate with mild vertebral height loss. Bony retropulsion produces mznn-hs-bwthkptb spinal stenosis at the T12-L1 level. 2. No intra-abdominal traumatic injuries. 3. Moderate degenerative spinal stenosis at L4-5. 4. Severe atherosclerotic disease with probable high-grade stenosis of the iliac arteries and possibly the mesenteric and renal arteries. Report Dictated on Electronically Signed By: Kathi Browne MD Electronically Signed Date/Time: 04/10/2024 3:03 PM EDT [facility] No Panel InformationOrdered By: Kathi Browne on 04-10-2024 [facility] [email or web address] Work Phone: TROPONIN, WITH SERIAL REFLEX on 04-10-2024 Troponin I.cardiac [Mass/Vol] ng/mL Normal <0.034 [facility] Comment on above: Result Comment: HUSSAIN Bhatt COMMENTS:Patients with high levels of Biotin oral intake (ie >5 mg/day) may have falsely decreased Troponin levels. Performed By: #### L AB103, [id number], LAB62, LAB17 ####[employer] Supervisor: ROSETTE ZHAO ([phone])[facility] ([facility])[address] [place] [address] Troponin I.cardiac [Mass/Vol ]on 04-10-2024 Interpretation and review of laboratory results Normal [facility] Patients with high levels of Biotin oral intake (ie >5 mg/day) may have falsely decreased Troponin levels. [facility] Urinalysis complete panel (U )Ordered By: Atilio Chaparro on 04-10-2024 Bilirubin Ql (U) Negative Negative mg/dL [facility] Clarity (U) Turbid Abnormal Clear [facility] Color (U) Colorless Lt. Yellow [facility] Glucose Ql (U) Normal Normal (<70) mg/dL [facility] Hemoglobin Ql (U) Negative Negative mg/dL [facility] Interpretation and review of laboratory results Abnormal [facility] Ketones (U) [Mass/Vol] Negative Negat jaciel mg/dL [facility] Leukocyte esterase Test strip Ql (U) Negative Negative Cathy/uL [facility] Nitrite Ql (U) Negative Negative [facility] pH (U) 7.0 [pH] 5.0 - 8.0 pH [facility] Protein (U) [Mass/Vol] Negative Negat jaciel mg/dL [facility] Specific gravity (U) [Rel density] 1.009 1.005 - 1.030 [facility] Urobilinogen (U) [Mass/Vol] Normal Normal (0-1) mg/dL [facility] Vital signson 04-10-2024 Heart rate 48 /min bpm [facility] MR Brain WO and W contrast I Von 11-27-2023 Patchy and confluent areas of hyperintense signal on T2-weighted and FLAIR images is nonspecific but likely represent moderate chronic microvascular ischemia. Report Dictated on Electronically Signed By: Jt Munson MD Electronically Signed Date/Time: 11/27/2023 8:37 AM [facility] Patient Name: SOMMER FIREDMAN : 1940 [facility]#: [id number] Exam Date/Time: 11/22/2023 16:03 Procedure: MR BRAIN W AND WO CONTRAST Ordering Provider: ROJAS MARK Reason For Exam: H90.A21 H90.A22 H68.029 H93.299 EXAMINATION: MR BRAIN W AND WO CONTRAST HISTORY: H90.A21 H90.A22 H68.029 H93.299 TECHNIQUE: Multiplanar multisequence MR images of the brain including high resolution axial T1, axial high resolution T2, and gadolinium enhanced high resolution coronal and axial, fat-suppressed T1-weighted images of the IAC region. COMPARISON: None. RESULT: Acute Change: There is no evidence of restricted diffusion to suggest an acute infarct. Mass Lesion/ Mass Effect: No evidence of a soft tissue mass in either IAC region. No abnormal enhancement is noted along the CN VII/VIII cranial nerve complexes or in the inner ear structures. No abnormal parenchymal or leptomeningeal enhancement is noted otherwise in the visualized parenchyma following contrast administration. No significant mass effect on the brainstem or cerebellum. Chronic Change: Scattered patchy and confluent areas of increased T2 and FLAIR signal are present in the supratentorial white matter which is a nonspecific finding but likely represents moderate chronic microvascular ischemia. Skull Base: No evidence of a marrow replacement process in the skull base. The inner ear structures appear to be within normal limits on the high resolution axial CISS acquisition. Vasculature: No posterior fossa vascular malformation is seen. Major intracranial dural venous sinuses show typical flow void, suggesting patency by spin echo criteria. No evidence of vascular compression of the CN VII/VIII complexes on the high resolution axial T2 acquisition. Other: The visualized paranasal sinuses, mastoid air cells and middle ear cavities are clear. [facility] Jt Munson MD - 11/27/2023 [facility] 1940 [id number] Exam Date/Time: 11/22/2023 16:03 Procedure: MR BRAIN W AND WO CONTRAST Ordering Provider: ROJAS MARK Reason For Exam: H90.A21 H90.A22 H68.029 H93.299 EXAMINATION: MR BRAIN W AND WO CONTRAST HISTORY: H90.A21 H90.A22 H68.029 H93.299 TECHNIQUE: Multiplanar multisequence MR images of the brain including high resolution axial T1, axial high resolution T2, and gadolinium enhanced high resolution coronal and axial, fat-suppressed T1-weighted images of the IAC region. COMPARISON: None. RESULT: Acute Change: There is no evidence of restricted diffusion to suggest an acute infarct. Mass Lesion/ Mass Effect: No evidence of a soft tissue mass in either IAC region. No abnormal enhancement is noted along the CN VII/VIII cranial nerve complexes or in the inner ear structures. No abnormal parenchymal or leptomeningeal enhancement is noted otherwise in the visualized parenchyma following contrast administration. No significant mass effect on the brainstem or cerebellum. Chronic Change: Scattered patchy and confluent areas of increased T2 and FLAIR signal are present in the supratentorial white matter which is a nonspecific finding but likely represents moderate chronic microvascular ischemia. Skull Base: No evidence of a marrow replacement process in the skull base. The inner ear structures appear to be within normal limits on the high resolution axial CISS acquisition. Vasculature: No posterior fossa vascular malformation is seen. Major intracranial dural venous sinuses show typical flow void, suggesting patency by spin echo criteria. No evidence of vascular compression of the CN VII/VIII complexes on the high resolution axial T2 acquisition. Other: The visualized paranasal sinuses, mastoid air cells and middle ear cavities are clear. IMPRESSION: Patchy and confluent areas of hyperintense signal on T2-weighted and FLAIR images is nonspecific but likely represent moderate chronic microvascular ischemia. Report Dictated on Electronically Signed By: Jt Munson MD Electronically Signed Date/Time: 11/27/2023 8:37 AM EDT [facility] [email or web address] MR Brain WO and W contrast I VOrdered By: Jt Munson on 11-27-2023 [email or web address] Work Phone: MR Brain WO and W contrast I Von 11-22-2023 Radiology Study observation (narrative) [facility] alth Basophil percentageOrdered B y: Kathi Juarez on 11-17-2023 Chloride [Moles/Vol] 108 mmol/L 98-107 [facility] Glucose [Mass/Vol] 100 mg/dL 74-106 [facility] Comment on above: Fasting Glucose resu lt from 100 to 125 mg/dL suggests IMPAIRED HOMEOSTASIS per A.D.A. criteria. Potassium [Moles/Vol] 4.2 mmol/L 3.5-5.1 [facility] Sodium [Moles/Vol] 137 mmol/L 136-145 [facility] Laboratory - Chemistry and C hemistry - challengeOrdered By: Kathi Juarez on 11-17-2023 CO2 [Moles/Vol] 24.0 mmol/L 21.0-32.0 [facility] Urea nitrogen/Creatinine [Mass ratio] 20.4 mg/mg 10-20 [facility] No Panel InformationOrdered By: Kathi Juarez on 11-17-2023 Estimated GFR (MDRD) Amer 70 mL/min >60 [facility] Comment on above: GFR Calc Estimated GFR (MDRD) Non-Af Amer 58 mL/min >60 [facility] Comment on above: Non- GFR Calc Serum or plasma calcium adam urement (mass/volume)Ordered By: Kathi Juarez on 11-17-2023 Calcium [Mass/Vol] 10.1 mg/dL 8.5-10.1 [facility] Serum or plasma creatinine m easurement (mass/volume)Ordered By: Kathi Juarez on 11-17-2023 Creatinine [Mass/Vol] 0.98 mg/dL 0.55-1.02 [facility] Comment on above: The validity of the calculated GFR & GFRAA in patients over 70 years has not been determined. Clinical correlation is essential. Serum or plasma urea nitroge n measurement (mass/volume)Ordered By: Kathi Juarez on 11-17-2023 Urea nitrogen [Mass/Vol] 20 mg/dL 7-18 [facility] Thin prep Papanicolaou smear with manual screeningOrdered By: Kathi Juarez on 11-17-2023 Thin prep Papanicolaou smear with manual screening 5 5-15 [facility] Serum or plasma thyroid stim ulating hormone (TSH) measurement (units/volume)Ordered By: Kathi Juarez on 11-06-2023 TSH Qn 0.32 uIU/mL 0.358-3.74 [facility] Serum or plasma thyroxine (T 4) measurement (mass/volume)Ordered By: Kathi Juarez on 11-06-2023 T4 [Mass/Vol] 9.1 ug/dL 4.8-13.9 [facility] Serum or plasma triiodothyro nine measurement by immunoassay (mass/volume)Ordered By: Kathi Juarez on 11-06-2023 T3 IA [Mass/Vol] 0.59 ng/mL 0.6-1.81 [facility] Basophil percentageOrdered B y: Kathi Juarez on 11-02-2023 Chloride [Moles/Vol] 107 mmol/L 98-107 [facility] Glucose [Mass/Vol] 97 mg/dL 74-106 [facility] Hemoglobin (Bld) [Mass/Vol] 13.2 g/dL 12.0-15.0 [facility] Potassium [Moles/Vol] 4.1 mmol/L 3.5-5.1 [facility] Sodium [Moles/Vol] 138 mmol/L 136-145 [facility] WBC (Bld) [#/Vol] 10.6 10*3/uL 4.4-11.0 [facility] Determination of erythrocyte mean corpuscular volume (MCV)Ordered By: Kathi Juarez on 11-02-2023 MCV (RBC) [Entitic vol] 94.4 fL 81-99 [facility] Erythrocyte distribution wid th ratioOrdered By: Kathi Juarez on 11-02-2023 Erythrocyte distribution width (RBC) [Ratio] 11.9 % 11.6-14.6 [facility] Erythrocyte distribution wid th standard deviationOrdered By: Kathi Juarez on 11-02-2023 Erythrocyte distribution width (RBC) [Entitic vol] 41.3 fL 35.1-43.9 [facility] Erythrocyte sedimentation ra teOrdered By: Kathi Juarez on 11-02-2023 ESR (Bld) [Velocity] 44 mm/h 0-30 [facility] Hematocrit Auto (Bld) [Volum e fraction]Ordered By: Kathi Juarez on 11-02-2023 Hematocrit (Bld) [Volume fraction] 38.8 % 37-47 [facility] Laboratory - Chemistry and C hemistry - challengeOrdered By: Kathi Juarez on 11-02-2023 CO2 [Moles/Vol] 23.0 mmol/L 21.0-32.0 [facility] Urea nitrogen/Creatinine [Mass ratio] 28.4 mg/mg 10-20 [facility] Laboratory - Hematology and Cell countsOrdered By: Kathi Juarez on 11-02-2023 MCH (RBC) [Entitic mass] 32.1 pg 27.0-32.0 [facility] MCHC (RBC) [Mass/Vol] 34.0 g/dL 32-36 [facility] Platelet mean volume (Bld) [Entitic vol] 9.5 fL 6.2-12.0 [facility] Platelets (Bld) [#/Vol] 372 10*3/uL 150-450 [facility] No Panel InformationOrdered By: Kathi Juarez on 11-02-2023 Estimated GFR (MDRD) Amer 102 mL/min >60 [facility] Comment on above: GFR Calc Estimated GFR (MDRD) Non-Af Amer 85 mL/min >60 [facility] Comment on above: Non- GFR Calc RBC Auto (Bld) [#/Vol]Ordere d By: Kathi Juarez on 11-02-2023 RBC (Bld) [#/Vol] 4.11 10*6/uL 4.2-5.4 [facility] Serum or plasma calcium adam urement (mass/volume)Ordered By: Kathi Juarez on 11-02-2023 Calcium [Mass/Vol] 10.0 mg/dL 8.5-10.1 [facility] Serum or plasma creatinine m easurement (mass/volume)Ordered By: Kathi Juarez on 11-02-2023 Creatinine [Mass/Vol] 0.70 mg/dL 0.55-1.02 [facility] Comment on above: The validity of the calculated GFR & GFRAA in patients over 70 years has not been determined. Clinical correlation is essential. Serum or plasma urea nitroge n measurement (mass/volume)Ordered By: Kathi Juarez on 11-02-2023 Urea nitrogen [Mass/Vol] 20 mg/dL 7-18 [facility] Serum or plasma uric acid me asurement (mass/volume)Ordered By: Kathi Juarez on 11-02-2023 Urate [Mass/Vol] 3.0 mg/dL 2.6-6.0 [facility] Comment on above: The drugs N-Acetylcy steine and Metamizole may falsely depress this assay. Serum procalcitonin measurem entOrdered By: Kathi Juarez on 11-02-2023 Procalcitonin [Mass/Vol] ng/mL 0.00-0.09 [facility] Comment on above: A procalcitonin (PCT ) level above 2.0 ng/mL on the first day of ICU admission is associated with a high risk for progression to severe sepsis and/or septic shock. A PCT level below 0.5 ng/mL on the first day of ICU admission is associated with a low risk for progression to severe and/or septic shock. Note: Concentrations <0.5 ng/mL do not exclude an infection on account of localized infections (without systemic signs) which can be associated with such low concentrations, or a systemic infection in its initial stages (<6 hours). Furthermore, increased procalcitonin can occur without infection. PCT concentrations between 0.5 and 2.0 ng/mL should be interpreted taking into account the patient's history. It is recommended to retest PCT within 6-24 hours if any concentrations <2 ng/mL are obtained. Thin prep Papanicolaou smear with manual screeningOrdered By: Kathi Juarez on 11-02-2023 Thin prep Papanicolaou smear with manual screening 8 5-15 [facility] Serum or plasma thyroid stim ulating hormone (TSH) measurement (units/volume)Ordered By: Kathi Juarez on 09-21-2023 TSH Qn 0.14 uIU/mL 0.358-3.74 [facility] Serum or plasma thyroxine (T 4) measurement (mass/volume)Ordered By: Kathi Juarez on 09-21-2023 T4 [Mass/Vol] 12.1 ug/dL 4.8-13.9 [facility] Serum or plasma triiodothyro nine measurement by immunoassay (mass/volume)Ordered By: Kathi Juarez on 09-21-2023 T3 IA [Mass/Vol] 1.15 ng/mL 0.6-1.81 [facility] Basophil percentageOrdered B y: Kathi Juarez on 08-16-2023 Chloride [Moles/Vol] 108 mmol/L 98-107 [facility] Glucose [Mass/Vol] 100 mg/dL 74-106 [facility] Comment on above: Fasting Glucose resu lt from 100 to 125 mg/dL suggests IMPAIRED HOMEOSTASIS per A.D.A. criteria. Potassium [Moles/Vol] 4.0 mmol/L 3.5-5.1 [facility] Sodium [Moles/Vol] 138 mmol/L 136-145 [facility] Laboratory - Chemistry and C hemistry - challengeOrdered By: Kathi Juarez on 08-16-2023 CO2 [Moles/Vol] 25.0 mmol/L 21.0-32.0 [facility] Urea nitrogen/Creatinine [Mass ratio] 27.2 mg/mg 10-20 [facility] No Panel InformationOrdered By: Kathi Juarez on 08-16-2023 Estimated GFR (MDRD) Amer 87 mL/min >60 [facility] Comment on above: GFR Calc Estimated GFR (MDRD) Non-Af Amer 72 mL/min >60 [facility] Comment on above: Non- GFR Calc Serum or plasma calcium adam urement (mass/volume)Ordered By: Kathi Juarez on 08-16-2023 Calcium [Mass/Vol] 9.9 mg/dL 8.5-10.1 [facility] Serum or plasma creatinine m easurement (mass/volume)Ordered By: Kathi Juarez on 08-16-2023 Creatinine [Mass/Vol] 0.81 mg/dL 0.55-1.02 [facility] Comment on above: The validity of the calculated GFR & GFRAA in patients over 70 years has not been determined. Clinical correlation is essential. Serum or plasma urea nitroge n measurement (mass/volume)Ordered By: Kathi Juarez on 08-16-2023 Urea nitrogen [Mass/Vol] 22 mg/dL 7-18 [facility] Thin prep Papanicolaou smear with manual screeningOrdered By: Kathi Juarez on 08-16-2023 Thin prep Papanicolaou smear with manual screening 5 5-15 [facility] Laboratory - Chemistry and C hemistry - challengeOrdered By: Kathi Juarez on 07-21-2023 Cobalamin (Vitamin B12) [Mass/Vol] 1516 pg/mL 211-911 [facility] Basophil percentageOrdered B y: Kathi Juarez on 07-17-2023 Chloride [Moles/Vol] 107 mmol/L 98-107 [facility] Glucose [Mass/Vol] 95 mg/dL 74-106 [facility] Potassium [Moles/Vol] 3.7 mmol/L 3.5-5.1 [facility] Sodium [Moles/Vol] 139 mmol/L 136-145 [facility] WBC (Bld) [#/Vol] 7.1 10*3/uL 4.4-11.0 [facility] Blood erythrocytes count (nu mber/volume)Ordered By: Kathi Juarez on 07-17-2023 RBC (Bld) [#/Vol] 3.95 10*6/uL 4.2-5.4 [facility] Blood hemoglobin measurement (mass/volume)Ordered By: Kathi Juarez on 07-17-2023 Hemoglobin (Bld) [Mass/Vol] 12.7 g/dL 12.0-15.0 [facility] Blood platelet mean volumeOr dered By: Kathi Juarez on 07-17-2023 Platelet mean volume (Bld) [Entitic vol] 9.2 fL 6.2-12.0 [facility] Determination of erythrocyte mean corpuscular volume (MCV)Ordered By: Kathi Juarez on 07-17-2023 MCV (RBC) [Entitic vol] 100.0 fL 81-99 [facility] Hematocrit Auto (Bld) [Volum e fraction]Ordered By: Kathi Juarez on 07-17-2023 Hematocrit (Bld) [Volume fraction] 39.5 % 37-47 [facility] Laboratory - Chemistry and C hemistry - challengeOrdered By: Kathi Juarez on 07-17-2023 CO2 [Moles/Vol] 27.0 mmol/L 21.0-32.0 [facility] Urea nitrogen/Creatinine [Mass ratio] 26.1 mg/mg 10-20 [facility] Laboratory - Hematology and Cell countsOrdered By: Kathi Juarez on 07-17-2023 Erythrocyte distribution width (RBC) [Entitic vol] 47.0 fL 35.1-43.9 [facility] Erythrocyte distribution width (RBC) [Ratio] 12.6 % 11.6-14.6 [facility] MCH (RBC) [Entitic mass] 32.2 pg 27.0-32.0 [facility] MCHC Auto (RBC) [Mass/Vol]Or dered By: Kathi Juarez on 07-17-2023 MCHC (RBC) [Mass/Vol] 32.2 g/dL 32-36 [facility] No Panel InformationOrdered By: Kathi Juarez on 07-17-2023 Estimated GFR (MDRD) Amer 88 mL/min >60 [facility] Comment on above: GFR Calc Estimated GFR (MDRD) Non-Af Amer 73 mL/min >60 [facility] Comment on above: Non- GFR Calc Platelets bldOrdered By: Sarthak Juarez on 07-17-2023 Platelets (Bld) [#/Vol] 337 10*3/uL 150-450 [facility] Serum or plasma calcium adam urement (mass/volume)Ordered By: Kathi Juarez on 07-17-2023 Calcium [Mass/Vol] 9.7 mg/dL 8.5-10.1 [facility] Serum or plasma creatinine m easurement (mass/volume)Ordered By: Kathi Juarez on 07-17-2023 Creatinine [Mass/Vol] 0.80 mg/dL 0.55-1.02 [facility] Comment on above: The validity of the calculated GFR & GFRAA in patients over 70 years has not been determined. Clinical correlation is essential. Serum or plasma urea nitroge n measurement (mass/volume)Ordered By: Kathi Juarez on 07-17-2023 Urea nitrogen [Mass/Vol] 21 mg/dL 7-18 [facility] Thin prep Papanicolaou smear with manual screeningOrdered By: Kathi Juarez on 07-17-2023 Thin prep Papanicolaou smear with manual screening 5 5-15 [facility] Laboratory - Chemistry and C hemistry - challengeOrdered By: Kathi Juarez on 07-03-2023 T4 [Mass/Vol] 8.8 ug/dL 4.8-13.9 [facility] No Panel InformationOrdered By: Kathi Juarez on 07-03-2023 Thyroid Stimulating Hormone (TSH) 1.44 uIU/mL 0.358-3.74 [facility] Total Triiodothyronine 0.86 ng/mL 0.6-1.81 [facility] Basophil percentageOrdered B y: Kathi Juarez on 06-26-2023 Chloride [Moles/Vol] 106 mmol/L 98-107 [facility] Glucose [Mass/Vol] 97 mg/dL 74-106 [facility] Potassium [Moles/Vol] 4.2 mmol/L 3.5-5.1 [facility] Sodium [Moles/Vol] 139 mmol/L 136-145 [facility] Laboratory - Chemistry and C hemistry - challengeOrdered By: Kathi Juarez on 06-26-2023 CO2 [Moles/Vol] 30.0 mmol/L 21.0-32.0 [facility] Urea nitrogen/Creatinine [Mass ratio] 29.1 mg/mg 10-20 [facility] No Panel InformationOrdered By: Kathi Juarez on 06-26-2023 Estimated GFR (MDRD) Amer 90 mL/min >60 [facility] Comment on above: GFR Calc Estimated GFR (MDRD) Non-Af Amer 74 mL/min >60 [facility] Comment on above: Non- GFR Calc Serum or plasma calcium adam urement (mass/volume)Ordered By: Kathi Juarez on 06-26-2023 Calcium [Mass/Vol] 9.7 mg/dL 8.5-10.1 [facility] Serum or plasma creatinine m easurement (mass/volume)Ordered By: Kathi Juarez on 06-26-2023 Creatinine [Mass/Vol] 0.79 mg/dL 0.55-1.02 [facility] Comment on above: The validity of the calculated GFR & GFRAA in patients over 70 years has not been determined. Clinical correlation is essential. Serum or plasma urea nitroge n measurement (mass/volume)Ordered By: Kathi Juarez on 06-26-2023 Urea nitrogen [Mass/Vol] 23 mg/dL 7-18 [facility] Thin prep Papanicolaou smear with manual screeningOrdered By: Kathi Juarez on 06-26-2023 Thin prep Papanicolaou smear with manual screening 3 5-15 [facility] Basophil percentageOrdered B y: Kathi Juarez on 06-01-2023 Chloride [Moles/Vol] 110 mmol/L 98-107 [facility] Glucose [Mass/Vol] 101 mg/dL 74-106 [facility] Comment on above: Fasting Glucose resu lt from 100 to 125 mg/dL suggests IMPAIRED HOMEOSTASIS per A.D.A. criteria. Potassium [Moles/Vol] 4.2 mmol/L 3.5-5.1 [facility] Sodium [Moles/Vol] 141 mmol/L 136-145 [facility] Laboratory - Chemistry and C hemistry - challengeOrdered By: Kathi Juarez on 06-01-2023 CO2 [Moles/Vol] 27.0 mmol/L 21.0-32.0 [facility] Urea nitrogen/Creatinine [Mass ratio] 33.3 mg/mg 10-20 [facility] No Panel InformationOrdered By: Kathi Juarez on 06-01-2023 Estimated GFR (MDRD) Amer 91 mL/min >60 [facility] Comment on above: GFR Calc Estimated GFR (MDRD) Non-Af Amer 75 mL/min >60 [facility] Comment on above: Non- GFR Calc Serum or plasma calcium adam urement (mass/volume)Ordered By: Kathi Juarez on 06-01-2023 Calcium [Mass/Vol] 9.7 mg/dL 8.5-10.1 [facility] Serum or plasma creatinine m easurement (mass/volume)Ordered By: Kathi Juarez on 06-01-2023 Creatinine [Mass/Vol] 0.78 mg/dL 0.55-1.02 [facility] Comment on above: The validity of the calculated GFR & GFRAA in patients over 70 years has not been determined. Clinical correlation is essential. Serum or plasma urea nitroge n measurement (mass/volume)Ordered By: Kathi Juarez on 06-01-2023 Urea nitrogen [Mass/Vol] 26 mg/dL 7-18 [facility] Thin prep Papanicolaou smear with manual screeningOrdered By: Kathi Juarez on 06-01-2023 Thin prep Papanicolaou smear with manual screening 4 5-15 [facility] Basophil percentageOrdered B y: Kathi Juarez on 05-24-2023 Bilirubin [Mass/Vol] 0.30 mg/dL 0.20-1.00 [facility] Comment on above: For patients on eltr ombopag therapy, use of Dimension [place] TBIL is not recommended. Chloride [Moles/Vol] 109 mmol/L 98-107 [facility] Cholesterol [Mass/Vol] 172 mg/dL <200 [facility] Comment on above: <200 mg/dL Desirable 200-240 mg/dL Borderline >240 mg/dL High Risk Glucose [Mass/Vol] 91 mg/dL 74-106 [facility] Potassium [Moles/Vol] 3.2 mmol/L 3.5-5.1 [facility] Protein [Mass/Vol] 6.8 g/dL 6.4-8.2 [facility] Sodium [Moles/Vol] 140 mmol/L 136-145 [facility] Triglyceride [Mass/Vol] 57 mg/dL <199 [facility] Comment on above: The drugs N-Acetylcy steine and Metamizole may falsely depress this assay.Serum Triglycerides Reference Interval Normal <150 mg/dL Borderline high 150 - 199 mg/dL High 200 - 499 mg/dL Very High > or = 500 mg/dL WBC (Bld) [#/Vol] 6.9 10*3/uL 4.4-11.0 [facility] Blood erythrocytes count (nu mber/volume)Ordered By: Kathi Juarez on 05-24-2023 RBC (Bld) [#/Vol] 3.61 10*6/uL 4.2-5.4 [facility] Blood hemoglobin measurement (mass/volume)Ordered By: Kathi Juarez on 05-24-2023 Hemoglobin (Bld) [Mass/Vol] 11.7 g/dL 12.0-15.0 [facility] Blood platelet mean volumeOr dered By: Kathi Juarez on 05-24-2023 Platelet mean volume (Bld) [Entitic vol] 9.3 fL 6.2-12.0 [facility] Determination of erythrocyte mean corpuscular volume (MCV)Ordered By: Kathi Juarez on 05-24-2023 MCV (RBC) [Entitic vol] 99.4 fL 81-99 [facility] Hematocrit Auto (Bld) [Volum e fraction]Ordered By: Kathi Juarez on 05-24-2023 Hematocrit (Bld) [Volume fraction] 35.9 % 37-47 [facility] Laboratory - Chemistry and C hemistry - challengeOrdered By: Kathi Juarez on 05-24-2023 ALP [Catalytic activity/Vol] 84 U/L 45-117 [facility] ALT [Catalytic activity/Vol] 15 U/L 13-56 [facility] CO2 [Moles/Vol] 26.0 mmol/L 21.0-32.0 [facility] Globulin (S) [Mass/Vol] 3.9 g/dL 2.2-4.2 [facility] Urea nitrogen/Creatinine [Mass ratio] 23.9 mg/mg 10-20 [facility] Laboratory - Hematology and Cell countsOrdered By: Kathi Juarez on 05-24-2023 Erythrocyte distribution width (RBC) [Entitic vol] 48.2 fL 35.1-43.9 [facility] Erythrocyte distribution width (RBC) [Ratio] 13.2 % 11.6-14.6 [facility] MCH (RBC) [Entitic mass] 32.4 pg 27.0-32.0 [facility] MCHC Auto (RBC) [Mass/Vol]Or dered By: Kathi Juarez on 05-24-2023 MCHC (RBC) [Mass/Vol] 32.6 g/dL 32-36 [facility] No Panel InformationOrdered By: Kathi Juarez on 05-24-2023 Estimated GFR (MDRD) Amer 95 mL/min >60 [facility] Comment on above: GFR Calc Estimated GFR (MDRD) Non-Af Amer 79 mL/min >60 [facility] Comment on above: Non- GFR Calc Thyroid Stimulating Hormone (TSH) 0.39 uIU/mL 0.358-3.74 [facility] Platelets bldOrdered By: Sarthak Juarez on 05-24-2023 Platelets (Bld) [#/Vol] 311 10*3/uL 150-450 [facility] Serum or plasma albumin adam urement (mass/volume)Ordered By: Kathi Juarez on 05-24-2023 Albumin [Mass/Vol] 2.9 g/dL 3.2-5.0 [facility] Serum or plasma albumin/glob ulin mass ratioOrdered By: Kathi Juarez on 05-24-2023 Albumin/Globulin [Mass ratio] 0.7 {ratio} 0.9-2.4 [facility] Serum or plasma calcium adam urement (mass/volume)Ordered By: Kathi Juarez on 05-24-2023 Calcium [Mass/Vol] 9.4 mg/dL 8.5-10.1 [facility] Serum or plasma cholesterol in HDL measurement (mass/volume)Ordered By: Kathi Juarez on 05-24-2023 Cholesterol in HDL [Mass/Vol] 53 mg/dL >40 [facility] Comment on above: The drugs N-Acetylcy steine and Metamizole may falsely depress this assay. Reference Range HDL <40 mg/dL Low HDL Cholesterol HDL >or= 60 mg/dL High HDL Cholesterol Serum or plasma cholesterol in VLDL measurement (mass/volume)Ordered By: Kathi Juarez on 05-24-2023 Cholesterol in VLDL [Mass/Vol] 11 mg/dL 5-40 [facility] Serum or plasma creatinine m easurement (mass/volume)Ordered By: Kathi Juarez on 05-24-2023 Creatinine [Mass/Vol] 0.75 mg/dL 0.55-1.02 [facility] Comment on above: The validity of the calculated GFR & GFRAA in patients over 70 years has not been determined. Clinical correlation is essential. Serum or plasma low density lipoprotein (LDL) cholesterol measurement (mass/volume)Ordered By: Kathi Juarez on 05-24-2023 Cholesterol in LDL [Mass/Vol] 108 mg/dL 0-130 [facility] Serum or plasma urea nitroge n measurement (mass/volume)Ordered By: Kathi Juarez on 05-24-2023 Urea nitrogen [Mass/Vol] 18 mg/dL 7-18 [facility] Thin prep Papanicolaou smear with manual screeningOrdered By: Kathi Juarez on 05-24-2023 Thin prep Papanicolaou smear with manual screening 19 U/L 15-37 [facility] Thin prep Papanicolaou smear with manual screening 5 5-15 [facility] Vital Signs Date Time Vital Sign Value Performing Clinician Faci lity 01-08-2025 07:20-0400 Body temperature 97.39 [degF] Luana Trinidad DO Work Phone: [email or web address] 01-08-2025 07:20-0400 Diastolic blood pressure 89 mm[Hg] Luana Trinidad DO Work Phone: [email or web address] 01-08-2025 07:20-0400 Heart rate 89 /min Luananiesha Trinidad DO Work Phone: [email or web address] 01-08-2025 07:20-0400 Respiratory rate 18 /min Luana Trinidad DO Work Phone: [email or web address] 01-08-2025 07:20-0400 SaO2% (BldA) [Mass fraction] 88 % Luananiesha Trinidad DO Work Phone: [email or web address] 01-08-2025 07:20-0400 Systolic blood pressure 147 mm[Hg] Luana Trinidad DO Work Phone: [email or web address] 01-06-2025 00:03-0400 Body height 165.1 cm Luana Trinidad DO Work Phone: [email or web address] 01-06-2025 00:03-0400 Body mass index (BMI) [Ratio] 24.13 kg/m2 Luana Trinidad DO Work Phone: [email or web address] 01-06-2025 00:03-0400 Body weight 65.77 kg Luana Satish DO Work Phone: [email or web address] 11-19-2024 13:02-0400 Body height 162.6 cm Tevin Conner MD Work Phone: [email or web address] 11-19-2024 13:02-0400 Body mass index (BMI) [Ratio] 22.66 kg/m2 Tevin Conner MD Work Phone: [email or web address] 11-19-2024 13:02-0400 Body weight 59.88 kg Tevin Conner MD Work Phone: [email or web address] 11-19-2024 13:02-0400 Diastolic blood pressure 70 mm[Hg] Tevin Conner MD Work Phone: [email or web address] 11-19-2024 13:02-0400 Heart rate 86 /min Tevin Conner MD Work Phone: [email or web address] 11-19-2024 13:02-0400 Respiratory rate 16 /min Tevin Conner MD Work Phone: [email or web address] 11-19-2024 13:02-0400 SaO2% (BldA) [Mass fraction] 97 % Tevin Conner MD Work Phone: [email or web address] 11-19-2024 13:02-0400 Systolic blood pressure 110 mm[Hg] Tevin Conner MD Work Phone: [email or web address] 11-01-2024 14:54-0400 Body temperature 97.9 [degF] Marcos Araujo MD Work Phone: [email or web address] 11-01-2024 14:54-0400 Diastolic blood pressure 82 mm[Hg] Marcos Araujo MD Work Phone: [email or web address] 11-01-2024 14:54-0400 Heart rate 102 /min Marcos Araujo MD Work Phone: [email or web address] 11-01-2024 14:54-0400 Respiratory rate 18 /min Marcos Araujo MD Work Phone: [email or web address] 11-01-2024 14:54-0400 SaO2% (BldA) [Mass fraction] 95 % Marcos Araujo MD Work Phone: [email or web address] 11-01-2024 14:54-0400 Systolic blood pressure 142 mm[Hg] Marcos Araujo MD Work Phone: [email or web address] 10-29-2024 09:29-0400 Body height 162.6 cm Marcos Araujo MD Work Phone: [email or web address] 10-29-2024 09:29-0400 Body mass index (BMI) [Ratio] 21.97 kg/m2 Marcos Araujo MD Work Phone: [email or web address] 10-29-2024 09:29-0400 Body weight 58.06 kg Marcos Araujo MD Work Phone: [email or web address] 10-24-2024 14:27-0500 Body height 160 cm Marcos Araujo MD Work Phone: [email or web address] 10-24-2024 14:27-0500 Body mass index (BMI) [Ratio] 23.91 kg/m2 Marcos Araujo MD Work Phone: [email or web address] 10-24-2024 14:27-0500 Body weight 61.24 kg Marcos Araujo MD Work Phone: [email or web address] 10-24-2024 14:19-0500 Body temperature 97.9 [degF] Marcos Araujo MD Work Phone: [email or web address] 10-24-2024 14:19-0500 Diastolic blood pressure 98 mm[Hg] Marcos Araujo MD Work Phone: [email or web address] 10-24-2024 14:19-0500 Heart rate 86 /min Marcos Araujo MD Work Phone: [email or web address] 10-24-2024 14:19-0500 Respiratory rate 16 /min Marcos Araujo MD Work Phone: [email or web address] 10-24-2024 14:19-0500 SaO2% (BldA) [Mass fraction] 98 % Marcos Araujo MD Work Phone: [email or web address] 10-24-2024 14:19-0500 Systolic blood pressure 150 mm[Hg] Marcos Araujo MD Work Phone: [email or web address] 10-19-2024 11:24-0500 Body temperature 98.8 [degF] Ag Meng MD Work Phone: [email or web address] 10-19-2024 11:24-0500 Diastolic blood pressure 70 mm[Hg] Ag Meng MD Work Phone: [email or web address] 10-19-2024 11:24-0500 Heart rate 85 /min Ag Meng MD Work Phone: [email or web address] 10-19-2024 11:24-0500 Respiratory rate 20 /min Ag Megn MD Work Phone: [email or web address] 10-19-2024 11:24-0500 SaO2% (BldA) [Mass fraction] 92 % Ag Meng MD Work Phone: [email or web address] 10-19-2024 11:24-0500 Systolic blood pressure 111 mm[Hg] Ag Meng MD Work Phone: [email or web address] 10-18-2024 11:01-0500 Body height 160 cm Ag Meng MD Work Phone: [email or web address] 10-18-2024 11:01-0500 Body mass index (BMI) [Ratio] 23.91 kg/m2 Ag Meng MD Work Phone: [email or web address] 10-18-2024 11:01-0500 Body weight 61.24 kg Ag Meng MD Work Phone: [email or web address] 08-23-2024 09:03-0500 Body height 162.6 cm Joana Wilson MD Work Phone: [facility] 08-23-2024 09:03-0500 Body mass index (BMI) [Ratio] 21.8 kg/m2 Joana Wilson MD Work Phone: [facility] 08-23-2024 09:03-0500 Body weight 57.6 kg Joana Wilson MD Work Phone: [facility] 08-23-2024 09:03-0500 Diastolic blood pressure 80 mm[Hg] Joana Wilson MD Work Phone: [facility] 08-23-2024 09:03-0500 Heart rate 74 /min Joana Wilson MD Work Phone: [facility] 08-23-2024 09:03-0500 SaO2% (BldA) [Mass fraction] 97 % Joana Wilson MD Work Phone: [facility] 08-23-2024 09:03-0500 Systolic blood pressure 160 mm[Hg] Joana Wilson MD Work Phone: [facility] 04-12-2024 11:33-0400 Body temperature 96.8 [degF] Dakota Dempsey MD Work Phone: [email or web address] 04-12-2024 11:33-0400 Diastolic blood pressure 46 mm[Hg] Dakota Dempsey MD Work Phone: [employer] [email or web address] 04-12-2024 11:33-0400 Heart rate 55 /min Dakota Dempsey MD Work Phone: [employer] [email or web address] 04-12-2024 11:33-0400 Respiratory rate 16 /min Dakota Dempsey MD Work Phone: [employer] [email or web address] 04-12-2024 11:33-0400 SaO2% (BldA) [Mass fraction] 97 % Dakota Dempsey MD Work Phone: [employer] [email or web address] 04-12-2024 11:33-0400 Systolic blood pressure 125 mm[Hg] Dakota Dempsey MD Work Phone: [employer] [email or web address] 04-10-2024 13:50-0400 Body weight 56.7 kg Dakota Dempsey MD Work Phone: [email or web address] Encounters Encounter Date Encounter Type Care Provider Facility Start: 01-15-2025 ambulatory Kathi Gutierrez ity:[facility] Start: 01-15-2025 Registered Referred Kathi choudhary [place] - [address] Start: 01-14-2025 ambulatory Kathi KULKARNI Facil ity:[facility] Start: 01-14-2025 Registered Referred Kathi choudhary [facility] - [address] Start: 01-05-2025 End: 01-08-2025 ambulatory KATHI JUAREZ [facility] Start: 01-05-2025 End: 01-08-2025 Evaluation and management of inpatient Luana Trinidad DO Work Phone: [facility] Comment on above: Acute pancreatitis, unspecified complication status, unspecified pancreatitis type (Primary Dx); Dementia without behavioral disturbance, psychotic disturbance, mood disturbance, or anxiety, unspecified dementia severity, unspecified dementia type (HCC); Slow transit constipation; Delirium; Debility Start: 12-30-2024 End: 12-30-2024 ambulatory Kathi Ann KULKARNI [facility] Work Phone: Start: 12-30-2024 End: 12-30-2024 Departed Referred Kathi Dumont [facility] [address] Start: 12-30-2024 Registered Referred Kathi choudhary [facility] - [address] Start: 12-30-2024 End: 12-30-2024 ambulatory Kathi Manriqueer CAYLA Facility:[facility] Start: 12-23-2024 Registered Referred Kathi choudhary [place] - [address] Start: 12-23-2024 End: 12-23-2024 ambulatory Kathi Collinshner CAYLA Facility:[facility] Start: 12-16-2024 End: 12-16-2024 ambulatory Kathi KULKARNI [facility] Work Phone: Start: 12-16-2024 End: 12-16-2024 Departed Referred Kathi Juarez -Wen [facility] - [address] Start: 12-16-2024 Registered Referred Kathi choudhary [facility] - [address] Start: 12-16-2024 End: 12-16-2024 ambulatory Kathi KULKARNI Facility:[facility] Start: 12-04-2024 End: 12-04-2024 Departed Referred Kathi Arizmendi - [address] Start: 12-04-2024 End: 12-04-2024 ambulatory Kathi KULKARNI Facility:[facility] Start: 11-26-2024 End: 11-26-2024 ambulatory Kathi KULKARNI [facility] Work Phone: Start: 11-26-2024 End: 11-26-2024 Departed Referred Kathi Arizmendi - [address] Start: 11-26-2024 End: 11-26-2024 ambulatory Kathi KULKARNI Facility:[facility] Start: 11-19-2024 End: 11-19-2024 Office outpatient new 30 minutes Tevin Conner MD Work Phone: [facility] Cardiology [facility] Comment on above: Permanent atrial fib rillation (HCC) (Primary Dx); Atrial fibrillation with rapid ventricular response (HCC); Encounter to establish care with new provider; Essential hypertension Start: 11-19-2024 End: 11-19-2024 ambulatory KATHI JUAREZ [facility] Start: 11-04-2024 ambulatory Kathi KULKARNI Facil ity:[facility] Start: 11-04-2024 Registered Referred Kathi Arizmendi - [address] Start: 10-29-2024 End: 11-01-2024 Evaluation and management of inpatient Marcos Araujo MD Work Phone: [facility] Card[facility] Progressive Care Unit PCU 2E Comment on above: Acute decompensated heart failure (HCC) (Primary Dx); Atrial fibrillation with rapid ventricular response (HCC) Start: 10-28-2024 ambulatory Kathi Ann KULKARNI Facil ity:[facility] Start: 10-28-2024 Registered Referred Kathi Arizmendi - [address] Start: 10-25-2024 ambulatory Kathi KULKARNI Facil ity:[facility] Start: 10-25-2024 Registered Referred Kathi Arizmendi - [address] Start: 10-24-2024 End: 10-24-2024 Emergency department patient visit Marcos Araujo MD Work Phone: [facility] ED Comment on above: Dementia, unspecifie d dementia severity, unspecified dementia type, unspecified whether behavioral, psychotic, or mood disturbance or anxiety (HCC) (Primary Dx) Start: 10-23-2024 ambulatory [facility] Facility:[facility] Start: 10-23-2024 Registered Referred [facility] - [address] Start: 10-17-2024 End: [facility] Start: 10-17-[facility]24 End: 10-19-2024 Emergency department patient visit Ag Meng MD Work Phone: [facility] Cardiac Progressive Care Unit PCU 2E Comment on above: NSTEMI (non-ST eleva josé myocardial infarction) (HCC) (Primary Dx); Atrial fibrillation with RVR (HCC); Chest pain, unspecified type Start: 10-08-2024 ambulatory Kathi KULKARNI [facility] ity:[facility] Start: 10-08-2024 Registered Referred Kathi Gordillo yash [facility] - [address] Start: 08-23-2024 End: 08-23-2024 ambulatory ROYER JUAN MANUEL Facility:[facility] Start: 08-23-2024 End: 08-23-2024 Patient encounter procedure Joana Wilson MD Work Phone: Cardiology Comment on above: Hypertension, unspec ified type (Primary Dx); Atrial fibrillation, unspecified type (HCC) Start: 07-25-2024 End: 07-25-2024 ambulatory Kathi KULKARNI Facility:[facility] Start: 07-08-2024 End: 07-08-2024 ambulatory Kathi KULKARNI Facility:[facility] Start: 04-10-2024 End: 04-12-2024 ambulatory [facility] Start: 04-10-2024 End: 04-12-2024 Evaluation and management of inpatient Dakota Dempsey MD Work Phone: [facility] Comment on above: Low back pain withou t sciatica, unspecified back pain laterality, unspecified chronicity (Primary Dx); Bradycardia; Closed fracture of first lumbar vertebra, unspecified fracture morphology, initial encounter ([facility]) Start: 02-06-2024 ambulatory Kathi Gutierrez ity:[facility] Start: 11-22-2023 End: 11-22-2023 Subsequent hospital visit by physician Blayne Rojas DO Work Phone: [facility] MRI Comment on above: Sensorineural hearin g loss, unilateral, right ear, 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; Sensorineural hearing loss, unilateral, left ear, 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; Chronic eustachian salpingitis, unspecified ear; Other abnormal auditory perceptions, unspecified ear Start: 11-17-2023 End: 11-17-2023 ambulatory [facility] Work Phone: Start: 11-17-2023 End: 11-17-2023 [facility] Start: 11-17-[address] [facility] Start: 11-09-2023 End: 02-08-2024 Transcribe Orders Blayne Rojas DO Work Phone: [facility] Comment on above: Sensorineural hearin g loss, unilateral, right ear, 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 (Primary Dx); Sensorineural hearing loss, unilateral, left ear, 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; Chronic eustachian salpingitis, unspecified ear; Other abnormal auditory perceptions, unspecified ear Start: 11-06-2023 End: 11-06-2023 [facility] Work Phone: Start: 11-06-2023 End: 11-06-2023 Departed Referred [facility] [facility] [address] Start: 11-06-2023 Registered Referred [facility] [place] - [address] Start: 11-02-2023 End: 11-02-2023 [facility] Work Phone: Start: 11-02-2023 End: 11-02-2023 Departed Referred [facility] [address] Start: 09-21-2023 End: 09-21-2023 ambulatory [facility] Work Phone: Start: 09-21-2023 End: 09-21-2023 Departed Referred [facility] - [address] Start: 08-16-2023 End: 08-16-2023 ambulatory [facility] Work Phone: Start: 08-16-2023 End: 08-16-2023 Departed Referred [facility] [place] - [address] Start: 07-21-2023 End: 07-21-2023 ambulatory [facility] Work Phone: Start: 07-21-2023 End: 07-21-2023 Departed Referred [facility] [place] - [address] Start: 07-17-2023 End: 07-17-2023 ambulatory [facility] Work Phone: Start: 07-17-2023 End: 07-17-2023 Departed Referred [facility] [place] - [address] Start: 07-17-2023 Registered Referred [facility] - [address] Start: 07-03-2023 End: 07-03-2023 ambulatory [facility] Work Phone: Start: 07-03-2023 End: 07-03-2023 Departed Referred [facility] [place] - [address] Start: 07-03-2023 Registered Referred [facility] - [address] Start: 06-26-2023 End: 06-26-2023 ambulatory [facility] Work Phone: Start: 06-26-2023 End: 06-26-2023 Departed Referred [facility] - [address] Start: 06-01-2023 End: 06-01-2023 ambulatory [facility] Work Phone: Start: 06-01-2023 End: 06-01-2023 Departed Referred [facility] - [address] Start: 05-24-2023 End: 05-24-2023 Departed Referred [facility] - [address] Procedures Date Procedure Procedure Detail Performing Clinician Start: 01-08-2025 Comprehensive metabo lic panel Mis Drew MD Work Phone: Start: 01-07-2025 Comprehensive metabo lic panel Vesta Amaya MD Work Phone: Start: 01-06-2025 Culture bacterial quanttative colony count urine Vesta Amaya MD Work Phone: Start: 01-06-2025 Ct abdomen & pelvis w/contrast material Luana Trinidad DO Work Phone: Start: 01-06-2025 Thyrotropin [Units/v olume] in Serum or Plasma Luana Trinidad DO Work Phone: Start: 01-06-2025 Urnls dip stick/tabl et reagent auto microscopy Luana Trinidad DO Work Phone: Start: 01-06-2025 Comprehensive metabo lic panel Luana Trinidad DO Work Phone: Start: 01-06-2025 Manual differential performed [Presence] in Blood Luana Trinidad DO Work Phone: Start: 12-16-2024 Urine culture Kathi Pablo [facility] Start: 12-16-2024 Urnls dip stick/tabl et reagent auto microscopy Kathi Juarez OLS Start: 11-19-2024 Ecg routine ecg w/le ast 12 lds w/i&r Tevin Conner MD Work Phone: Start: 11-19-2024 Follow-up visit DESHAWN JOHNY Start: 11-01-2024 Comprehensive metabo lic panel Ag Trent MD Work Phone: Start: 10-31-2024 Comprehensive metabo lic panel Ag Trent MD Work Phone: Start: 10-30-2024 Basic metabolic pane l calcium total Travis Goncalves MD Work Phone: Start: 10-29-2024 SARS-COV-2, FLU A/B, AND RSV COMBO Sharyn Brown MD Work Phone: Start: 10-29-2024 End: 10-29-2024 Basic metabolic panel calcium total Marcos Araujo MD Work Phone: Start: 10-29-2024 Assay of troponin quantitative Marcos Araujo MD Work Phone: Start: 10-29-2024 Ecg routine ecg w/le ast 12 lds trcg only w/o i&r Marcos Araujo MD Work Phone: Start: 10-29-2024 Assay of troponin quantitative Marcos Araujo MD Work Phone: Start: 10-29-2024 Radiologic exam ches t 2 views Marcos Araujo MD Work Phone: Start: 10-29-2024 C-reactive protein Kip Araujo MD Work Phone: Start: 10-29-2024 Comprehensive metabo lic panel Marcos Araujo MD Work Phone: Start: 10-29-2024 Urinalysis complete panel - Urine Marcos Araujo MD Work Phone: Start: 10-29-2024 Urnls dip stick/tabl et rgnt auto w/o microscopy Marcos Araujo MD Work Phone: Start: 10-29-2024 Ecg routine ecg w/le ast 12 lds trcg only w/o i&r Marcos Araujo MD Work Phone: Start: 10-24-2024 Glucose quantitative blood xcpt reagent strip Marcos Araujo MD Work Phone: Start: 10-19-2024 Basic metabolic pane l calcium total Phill Forte MD Work Phone: Start: 10-18-2024 End: 10-18-2024 Basic metabolic panel calcium total Phill Forte MD Work Phone: Start: 10-18-2024 Echo tthrc r-t 2d w/wom-mode compl spec&colr d Phill Forte MD Work Phone: Start: 10-17-2024 HIGH SENSITIVITY TRO PONIN, SERIAL, SECOND TEST Phill Forte MD Work Phone: Start: 10-17-2024 HIGH SENSITIVITY TRO PONIN, SERIAL BASELINE Phill Forte MD Work Phone: Start: 10-17-2024 Assay of thyroid stimulating hormone tsh Phill Forte MD Work Phone: Start: 10-17-2024 HIGH SENSITIVITY TRO PONIN, SERIAL, SECOND TEST Juno Velez PA-C Work Phone: Start: 10-17-2024 Culture bacterial quanttative colony count urine Juno Velez PA-C Work Phone: Start: 10-17-2024 Urinalysis complete panel - Urine Juno Velez PA-C Work Phone: Start: 10-17-2024 Radiologic exam ches t single view Juno Velez PA-C Work Phone: Start: 10-17-2024 SARS-COV-2, FLU A/B, AND RSV COMBO Ag Meng MD Work Phone: Start: 10-17-2024 Basic metabolic pane l calcium total Juno Velez PA-C Work Phone: Start: 10-17-2024 Ecg routine ecg w/le ast 12 lds trcg only w/o i&r Ag Meng MD Work Phone: Start: 10-17-2024 Thyrotropin [Units/v olume] in Serum or Plasma Ag Meng MD Work Phone: Start: 08-23-2024 Ecg routine ecg w/le ast 12 lds i&r only [facility] Provider Start: 04-11-2024 End: 04-11-2024 Basic metabolic panel calcium total Anahi Woods MD Work Phone: Start: 04-11-2024 Basic metabolic pane l calcium total Anahi Woods MD Work Phone: Start: 04-11-2024 Blood count complete auto&auto difrntl wbc Anahi Woods MD Work Phone: Start: 04-10-2024 Urinalysis complete panel - Urine Dakota Dempsey MD Work Phone: Start: 04-10-2024 Urnls dip stick/tabl et rgnt auto w/o microscopy Dakota Dempsey MD Work Phone: Start: 04-10-2024 Comprehensive metabo lic panel Dakota Dempsey MD Work Phone: Start: 04-10-2024 Ct lumbar spine w/o contrast material Dakota Dempsey MD Work Phone: Start: 04-10-2024 Ct abdomen & pelvis w/o contrast material Dakota Dempsey MD Work Phone: Start: 04-10-2024 Ecg routine ecg w/le ast 12 lds trcg only w/o i&r Dakota Dempsey MD Work Phone: Plan of Treatment Date Care Activity Detail Author Start: 04-11-2027 Diabetes Screening Diabetes Screenin g [facility] Start: 01-08-2026 Creatinine measurement Creatinine Le nies [facility] Start: 01-08-2026 Potassium measurement Potassium Leve l [facility] Start: 01-06-2026 Thyroid stimulating hormone measurement TSH Level [email or web address] Start: 11-19-2025 End: 11-19-2025 Patient encounter procedure 11/19/2025 3:00 PM EDT Office Visit [facility] [address] [id number] Tevin Conner MD [address] [id number] [facility] Start: 11-01-2025 Creatinine measurement Creatinine Le ines [facility] Start: 11-01-2025 Potassium measurement Potassium Leve l [facility] Start: 10-18-2025 Echocardiography Echocardiogram [facility] Start: 10-17-2025 Thyroid stimulating hormone measurement TSH Level [facility] Start: 04-21-2025 Influenza vaccination Influenz a Vaccine (Season Ended) [facility] Start: 11-19-2024 End: 11-19-2024 Patient encounter procedure 11/19/2024 1:00 PM EDT Office Visit [facility] [address] [place] [id number] Tevin Conner MD [address] [place] [address] [facility] Start: 08-23-2024 End: 08-23-2025 Echocardiography ECHO Cardiology Routine Atrial fibrillation, unspecified type (HCC) Expected: 08/23/2024, Expires: 08/23/2025 [facility] Work Phone: Comment on above: Expected: 08/23/2024 , Expires: 08/23/2025 Start: 08-21-2024 Advance Directive Discussion Advance Directive Discussion [facility] Start: 08-21-2024 Medicare Advantage A nnual Wellness Visit Medicare Advantage Annual Wellness Visit [facility] Start: 04-21-2024 Covid-19 Vaccine ( season) Covid-19 Vaccine ( season) [facility] Start: 04-21-2024 Influenza vaccination S [facility] Start: 08-21-2023 Medicare Advantage A nnual Wellness Visit Medicare Advantage Annual Wellness Visit [facility] Start: 04-21-2023 COVID-19 Vaccine ( season) COVID-19 Vaccine ( season) [facility] Start: 2017 RSV Immunization for Adults (1 - 1-dose 75+ series) RSV Immunization for Adults (1 - 1-dose 75+ series) [facility] Start: 2017 RSV Vaccine (1 - 1-d ose 75+ series) RSV Vaccine (1 - 1-dose 75+ series) [facility] Start: 2007 Pneumococcal Vaccine : 65+ Years (1 of 1 - PCV) Pneumococcal Vaccine: 65+ Years (1 of 1 - PCV) [facility] Start: 2007 Screening for osteoporosis Bone Dens ity Screening [facility] Start: 2002 RSV Immunization age d 60 or older (1 - 1-dose 60+ series) RSV Immunization aged 60 or older (1 - 1-dose 60+ series) [facility] Start: 02-11-1992 Shingrix Vaccine (1 of 2) Husain grix Vaccine (1 of 2) [facility] Start: 02-11-1992 Zoster Vaccines (1 of 2) Zoste r Vaccines (1 of 2) [facility] Start: 1961 DTaP/Tdap/Td Vaccine s (1 - Tdap) DTaP/Tdap/Td Vaccines (1 - Tdap) [facility] Start: 1961 Urine microalbumin profile DTa P,Tdap,Td Vaccine (1 - Tdap) [facility] Start: 02-11-1960 Anxiety Screening Anxiety Screening [facility] Start: 02-11-1958 Depression Screening Depression Scre ening [facility] Start: 1954 Depression Monitoring Depression Mon itoring [facility] Start: 1954 Depression Screening Depression Scre ening [facility] Start: 1942 Lipid panel Lipid Panel [facility] Start: 1940 Screening for osteoporosis Bone Dens ity Scan [facility] Start: 1940 Thyroid stimulating hormone measurement TSH Level [facility] End: 01-06-2025 Bacteria identified in Urine by Culture [facility] Work Phone: Comment on above: Once (Lab) for 1 Occ urrences starting 01/06/2025 until 01/06/2025 ECG COMPLETE ECG COMPLETE ECG 08/23/2024 9:00 AM EST [facility] End: 11-22-2023 MR Brain WO and W contrast IV [facility] Work Phone: Comment on above: Once for 1 Occurrenc es starting 11/22/2023 until 11/22/2023 End: 09-23-2025 NM Heart Perfusion W stress and W radionuclide IV NM CARDIAC PERF STRESS/PHARM Radiology Routine Atrial fibrillation, unspecified type (HCC) 1 Occurrences starting 08/23/2024 until 09/23/2025 [facility] Comment on above: 1 Occurrences starti ng 08/23/2024 until 09/23/2025 OUTSIDE PROCEDURE SCAN OUTSIDE P ROCEDURE SCAN Procedures Ordered: 11/21/2023 [facility] Comment on above: Ordered: 11/21/2023 End: 01-06-2025 Urine Hold Cup Urine Hold Cup Lab Timed Once for 1 Occurrences starting 01/06/2025 until 01/06/2025 [facility] Comment on above: Once for 1 Occurrenc es starting 01/06/2025 until 01/06/2025 Immunizations Immunization Date Immunization Notes Care Provider [facility] 06-10-2022 influenza virus vacc ine, unspecified formulation Joana Wilson MD Work Phone: [facility] Payers Date Payer Category Payer Medicaid [id number] 2024 Medicaid O [facility] LUIS ARMANDO Flores EDICAID ONLY [id number] 2024 Medicaid [id number] 2024 Medicaid [id number] 2024 Self-pay 2023 Unknown [facility] [employer] HMO SNP [id number] 2023-Present [phone] [address] [place] [address] [facility] [id number] 2022 Medicare [facility] [facility] MEDICARE [employer] [id number] 2022-Present [address] [place] [address] Medicare HMO [id number] 2022 Medicare HMO [facility] N [id number] 2022 Unknown [id number] Medicare MEDICARE PART A B [id number] 5 [id number] Unknown [facility] PLAN [id number] Unknown [id number] Unknown [id number] Unknown [id number] Unknown [id number] Unknown [id number] Unknown [id number] Unknown [id number] Unknown [id number] Unknown [id number] Unknown [id number] Unknown [id number] [id number] Unknown [id number] [id number] Unknown [id number] [id number] Unknown [id number] Unknown [id number] Social History Date Type Detail Facility Tobacco smoking stat [facility] Unknown if ever smoked [facility] Work Phone: Start: 1940 Sex Assigned At Female [facility] Start: 04-11-2024 Tobacco smoking stat [facility] Tobacco smoking consumption unknown [facility] Start: 1940 Sex Assigned At Not on file [facility] Start: 04-11-2024 End: 01-08-2025 Gender identity Not on file [facility] Start: 04-11-2024 End: 01-08-2025 History of Social function [facility] Within the last year , have you been afraid of your partner or ex-partner? Patient unable to answer [facility] Start: 08-23-2024 End: 01-08-2025 Tobacco smoking status NHIS Ex-smoker [facility] Start: 08-21-2024 History of tobacco use Current smoke r [facility] Start: 08-21-2024 History of tobacco use Cigarette Smo ker [facility] Start: 08-23-2024 Tobacco use and exposure Smokeless tobacco non-user [facility] Start: 08-23-2024 End: 01-08-2025 Alcoholic beverage intake Ex-drinker (finding) [facility] Within the last year , have you been afraid of your partner or ex-partner? No [facility] How often to you hav e a drink containing alcohol? Never [facility] Start: 11-09-2023 Sex Female (finding) [facility] (I/We) worried wheth er (my/our) food would run out before (I/we) got money to buy more. Never true [facility] Start: 01-08-2025 Tobacco Comment 01/08/25 Not carey re of age started, amounts or when she quit. Didn't smoke much and I quit many years ago. [facility] Functional Status Date Assessment Result Facility [facility] Clinical Notes 04-10-2024 to 01-08-2025 Care Plan - Joana Garcia LPN - 01/08/2025 1:41 PM EDTCare Plan - Joana Garcia LPN - 01/08/2025 1:41 PM EDTCare Coordination - Hazel Jain RN - 01/08/2025 12:10 PM EDTAttachments Note Date & Type Note Facility 01-08-2025 Plan of care note Problem: Knowledge Deficit Goal: Patient/family/caregiver demonstrates understanding of disease process, treatment plan, medications, and discharge instructions Outcome: Adequate for Discharge Problem: Potential for Compromised Skin Integrity Goal: Skin Integrity is Maintained or Improved Outcome: Adequate for Discharge Goal: Nutritional status is improving 01/08/2025 1341 by Joana Garcia LPN Outcome: Adequate for Discharge 01/08/2025 0849 by Joana Garcia LPN Outcome: Progressing Problem: Urinary Incontinence Goal: Perineal skin integrity is maintained or improved Outcome: Adequate for Discharge [facility] 01-08-2025 Miscellaneous Notes Problem: Knowledge Deficit Goal: Patient/family/caregiver demonstrates understanding of disease process, treatment plan, medications, and discharge instructions Outcome: Adequate for Discharge Problem: Potential for Compromised Skin Integrity Goal: Skin Integrity is Maintained or Improved Outcome: Adequate for Discharge Goal: Nutritional status is improving 01/08/2025 1341 by Joana Garcia LPN Outcome: Adequate for Discharge 01/08/2025 0849 by Joana Garcia LPN Outcome: Progressing Problem: Urinary Incontinence Goal: Perineal skin integrity is maintained or improved Outcome: Adequate for Discharge Transportation has been confirmed for 3 PM. RN and director of community services notified via secure chat. SonParris, notified via TC; VM left. Confirmed pickup time of 3:00pm on 01/08/25 by transport [employer] Jon Goode at phone number [phone]. Location of facility drop off is [facility]. Facility notified via [employer], TCC notified on secure chat. Discharge med list transmitted to [facility] via [employer] per TCC request. Discharge order noted in epic. [employer] tasked to set up cot transport. Care Managment Initial Assessment Date: 01/08/2025 Patient Name: Sommer Friedman : 1940 Patient Information Source of Information: Patient [place] Name/Contact Information: kaushal Huitron via TC Cognition/Language: Impaired, Confused at baseline Permission given to speak with patient in store representative/caregiver as indicated: Yes Confirmation of Payer with patient/family: Yes Payer Name: [employer] and [facility] [employer] medicaid only : No Confirmation of Primary Care Physician: Confirmed PCP Name: MD at facility Seen in last 2 years?: Yes Primary Caregiver: Other (Comment) (facility staff) If assistance needed, confirmed caregiver ready, willing and able to care for patient at discharge: Confirmed with: Living Arrangements Facility: [facility] Facility Name: [facility] Plan to Return: Yes Lives with: Other (Comment) (at [facility] Support Systems: Children, Family members, Comments (Other) (facility staff) Activities of Daily Living Ambulation: Assistance (with walker; needs assist with transfers 2/2 hip pain) Bathing/Dressing: Assistance (able to self dress/ needs assist with bathing) Elimination/Continence/Toileting: Assistance (needs assist off of toilet) Feeding: Independent Who Assists with Activities of Daily Living: facility staff Instrumental Activities of Daily Living Prescription Coverage: Yes Pharmacy Used: facility manages Medication Management: Transportation/Shopping: Transportation Mode: Needs Assistance with Transportation at Discharge: Yes Meal Preparation: Assistance Provider Meal Prep Assistance Provider Name: facility staff Laundry/Cleaning: Assistance Provider Laundry/Cleaning Assistance Provider Name: facility staff Finances/Bill Paying: Assistance Provider Finances/Bill Payer Assistance Provider Name: son Communication: Independent Types of Care Services/Equipment Utilized Durable Medical Equipment: Walker, Wheelchair (standard or power) Patient's Goal/Discharge Plan Patient expects to be discharged to: return to [facility] Discharge Planning Actions: Continue to follow, Alf Facility referral indicated Yulan of choice: Yulan of choice discussed (choice list not indicated. Patient is LTC at [facility]/ son stated plan is to return) Patient's Choice Rights and [employer] and Collaborative Relationships Disclosed as Indicated for Post-Acute Care: NA Interdisciplinary Team Engagement: Social Work Referral for: Additional Information: Introduced self and role to patient sonParris, via TC. Patient admitted from [facility] 2/2 pain, constipation, ?UTI. Geriatrics consulted. Per Parris, plan is for return at discharge. [facility] tasked to place return referral. Hazel Jain RN Return Referral placed to [facility] per TCC request. Await review and response regarding ability to accept. TCC notified. Problem: Potential for Compromised Skin Integrity Goal: Nutritional status is improving Outcome: Progressing Problem: Potential for Compromised Skin Integrity Goal: Skin Integrity is Maintained or Improved Outcome: Progressing Goal: Nutritional status is improving Outcome: Progressing Problem: Urinary Incontinence Goal: Perineal skin integrity is maintained or improved Outcome: Progressing Problem: Urinary Incontinence Goal: Perineal skin integrity is maintained or improved Outcome: Progressing Problem: Knowledge Deficit Goal: Patient/family/caregiver demonstrates understanding of disease process, treatment plan, medications, and discharge instructions Outcome: Progressing Problem: Potential for Compromised Skin Integrity Goal: Skin Integrity is Maintained or Improved Outcome: Progressing Problem: Potential for Compromised Skin Integrity Goal: Skin Integrity is Maintained or Improved Outcome: Progressing Goal: Nutritional status is improving Outcome: Progressing Problem: Urinary Incontinence Goal: Perineal skin integrity is maintained or improved Outcome: Progressing documented in this encounter [facility] 01-08-2025 Note Formatting of this n ote might be different from the original. Transportation has been confirmed for 3 PM. RN and director of community services notified via secure chat. SonParris, notified via TC; VM left. [facility] 01-08-2025 Note Formatting of this n ote might be different from the original. Transportation has been confirmed for 3 PM. RN and director of community services notified via secure chat. SonParris, notified via TC; VM left. [facility] 01-08-2025 Note Formatting of this n ote might be different from the original. Confirmed pickup time of 3:00pm on 01/08/25 by transport [email or web address] at phone number [phone]. Location of facility drop off is [facility]. Facility notified via [facility], TCC notified on secure chat. [facility] 01-08-2025 Note Formatting of this n ote might be different from the original. Confirmed pickup time of 3:00pm on 01/08/25 by transport [email or web address] at phone number [phone]. Location of facility drop off is [facility]. Facility notified via [facility], TCC notified on secure chat. [facility] 01-08-2025 Note Formatting of this n ote might be different from the original. Discharge med list transmitted to [facility] via [facility] per TCC request. [facility] 01-08-2025 Note Formatting of this n ote might be different from the original. Discharge med list transmitted to [facility] via [facility] per TCC request. [facility] 01-08-2025 Note Formatting of this n ote might be different from the original. Discharge order noted in epic. [facility] tasked to set up cot transport. [facility] 01-08-2025 Note Formatting of this n ote might be different from the original. Discharge order noted in epic. [facility] tasked to set up cot transport. [facility] 01-08-2025 Note [facility] 01-08-2025 Hospital course Narrative Images from the original note were not included. Discharge Summary Sommer Friedman : 1940 ADMIT DATE: 01/05/2025 DISCHARGE DATE: 01/08/2025 PRIMARY CARE PHYSICIAN: Kathi Juarez VISIT STATUS: Admission CODE STATUS: Full Code DISCHARGE DIAGNOSES: Principal Problem: H/O acute pancreatitis Active Problems: Acute pancreatitis, unspecified complication status, unspecified pancreatitis type HOSPITAL COURSE: Sommer is a 84 y.o. female with past medical history below who presents with chief complaint listed above. Pt was brought by EMS From [facility] after staff reporting that she was screaming in pain. Pt continuously denied abd pain to EMS AND ER. CT ABD showed constipation with severe atherosclerotic lesions, normal LA. admitted for further evaluation and management. urine culture no growth Geriatrics consulted, seen the patient, appreciated Patient will be discharged to back to facility today in stable condition Interval History: 01/08/2025-No overnight issues. Patient is seen and examined Patient resting in her bed without in any acute distress, pleasantly confused, she reports no new acute complaints As per staff patient had BM Labs reviewed CBC, CMP within normal range Case and plan discussed with patient and bedside nurse. All questions answered. Past Medical History: [Medical History] [Medical History] Past Medical History Diagnosis Date Afib (CMS/HCC) (HCC) Anxiety CHF (congestive heart failure) (HCC) COPD (chronic obstructive pulmonary disease) (HCC) Dementia (HCC) Depression Hyperlipidemia Hypertension Hypothyroid Insomnia Pulmonary HTN (HCC) Adult diet Regular 24HR INTAKE/OUTPUT: No intake or output data in the 24 hours ending 01/08/25 0838 LABS: CBC: Recent Labs 01/06/25 0016 01/07/25 0124 01/08/25 0053 WBC 6.2 5.8 6.6 RBC 4.66 4.88 4.65 HGB 13.3 13.4 13.2 HCT 40.7 42.9 41.2 MCV 87.3 87.9 88.6 RDW 15.7* 15.9* 15.9* PLT 271 248 248 BMP: Recent Labs 01/06/256 01/07/25 0124 01/08/25 0053 NA 136 138 138 K 3.9 3.9 4.1 CL 105 111* 111* CO2 23 19* 19* BUN 25* 16 21 CREATININE 1.02 0.88 0.86 GLUCOSE 108 102 111 CALCIUM 9.0 8.9 9.2 ANIONGAP 8 8 8 LIVER PROFILE: Recent Labs 01/06/25 0016 01/07/25 0124 01/08/25 0053 AST 31 30 25 ALT 24 20 17 BILITOT 0.6 0.7 0.6 ALKPHOS 70 65 65 PROT 6.9 6.4 6.5 PT/INR: No results for input(s): PROTIME, INR in the last 72 hours. CARDIAC ENZYMES: No results for input(s): TROPONINI in the last 72 hours. Procalcitonin: No results found for: PROCAL COVID-19 PCR: No results for input(s): COVID19 in the last 72 hours. Objective: Vitals: BP 147/89 (BP Location: Left arm, Patient Position: Lying) Pulse 89 Temp 36.3 C (97.4 F) (Temporal) Resp 18 Ht 5' 5 (1.651 m) Wt 145 lb (65.8 kg) SpO2 (!) 88% BMI 24.13 kg/m Pulse Ox: SpO2 Av.5 % Min: 88 % Max: 95 % Supplemental O2: Physical Exam HENT: Head: Normocephalic and atraumatic. Mouth/Throat: Mouth: Mucous membranes are moist. Cardiovascular: Rate and Rhythm: Normal rate and regular rhythm. Pulmonary: Effort: Pulmonary effort is normal. Abdominal: Palpations: Abdomen is soft. Skin: General: Skin is warm and dry. Neurological: Mental Status: She is alert. Mental status is at baseline. Psychiatric: Mood and Affect: Mood normal. Medications: Scheduled PRN [Scheduled Meds] [Scheduled Meds] apixaban, 5 mg, Oral, BID busPIRone, 5 mg, Oral, TID cefTRIAXone, 1,000 mg, IntraVENous, q24h donepezil, 10 mg, Oral, Nightly escitalopram, 15 mg, Oral, Daily levothyroxine, 88 mcg, Oral, qAM AC melatonin, 3 mg, Oral, Nightly metoprolol tartrate, 25 mg, Oral, BID morphine sulfate, 2 mg, IntraVENous, Once senna-docusate sodium, 2 tablet, Oral, BID [PRN Meds] [PRN Meds] PRN medications: acetaminophen OR acetaminophen, ondansetron ODT OR ondansetron, Petrolatum, polyethylene glycol (PEG) 3350 Continuous [Continuous Meds] [Continuous Meds] Assessment Data: (CAT1) Reviewed 2 notes from different specialty or health system (each=1). (CAT1) Reviewed 3 or more labs/studies ordered by another provider not previously counted (each=1, panels count as 1). (CAT1) Ordered 3 or more new labs and/or studies (each=1, panels count as 1). (LOW: 2x CAT1 or independent historian MOD: 3x CAT1 or 1x CAT3 EXTENSIVE: 3x CAT1 and 1x CAT3) Acute, acute on chronic, unstable/uncontrolled chronic problems/diagnoses: Severe dementia and possible agitaion- currently calm ?uti- difficult to assess urinary sym Constipation calcification with diminutive caliber of the distal aorta measuring as little as 0.8 cm. There is patent flow within the diminutive left iliac artery branches extending to the common femoral artery. There is absent flow within the right common iliac artery with reconstitution near the iliac bifurcation. - LA wnl, abd benign, will monitor Stable chronic problems affecting care, new non-acute diagnoses: A-fib Hypothyroidism Plan As a result of the above findings & factors, the following mgmt was pursued: - Geriatrics consulted, seen the patient, recommendations noted - Urine cultures negative - Continue with stool softeners SIGNIFICANT DIAGNOSTIC STUDIES: CT abdomen pelvis w contrast [[id number]] Collected: 01/06/25254 Order Status: Completed Updated: 01/06/25 030 Narrative: Patient Name: SOMMER FRIEDMAN : 1940 [facility]#: [id number] Exam Date/Time: 01/06/2025 01:53 Procedure: CT ABDOMEN PELVIS W CONTRAST Ordering Provider: TRINIDAD KATHRYN Reason For Exam: Diffuse abdominal tenderness, hyperactive bowel sounds CT ABDOMEN AND PELVIS WITH CONTRAST CLINICAL INDICATION: Diffuse abdominal tenderness, hyperactive bowel sounds. TECHNIQUE: Transaxial sequence through the abdomen and pelvis with 3 mm reconstruction with dynamic intravenous infusion of contrast media. No oral contrast was administered. Coronal and sagittal reconstructions included. Dose reduction was employed with automated exposure control. COMPARISON: 04/10/2024 FINDINGS: Exam quality: Examination is suboptimal for evaluation of the gastrointestinal tract due to lack of oral contrast Chest base: Cardiomegaly. No pleural fluid collection. Liver: Generalized diminished attenuation as compared to the spleen, corresponding to diffuse fatty infiltration. There is hepatic passive congestion of contrast. No focal lesion. Biliary tree: Normal caliber. Spleen: Normal. Adrenals: Normal. Pancreas: Normal. Kidneys: Symmetric contrast enhancement without hydronephrosis. No focal lesion. Free fluid: None. Retroperitoneal/mesenteric lymphadenopathy: None. Aorta: Dense atherosclerotic calcification with diminutive caliber of the distal aorta measuring as little as 0.8 cm. There is patent flow within the diminutive left iliac artery branches extending to the common femoral artery. There is absent flow within the right common iliac artery with reconstitution near the iliac bifurcation. Bowel: There is no bowel dilatation. Sigmoid diverticulosis is noted. Retained feces are noted. There is no free air. Abdominal wall: Normal. Pelvic organs/viscera: No mass identified. Pelvic lymphadenopathy: None. Osseous structures: Metallic fixation noted within the right hip. There is severe compression fracture deformity of the L1 vertebral body involving the superior endplate, unchanged from 04/10/2024. Degenerative change also noted at L5-S1. Impression: 1. 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 2. Fatty liver 3. Sigmoid diverticulosis Report Dictated on Electronically Signed By: Dion Valenzuela MD Electronically Signed Date/Time: 01/06/2025 3:00 AM EDT CONSULTANTS: Geriatrics RECOMMENDED NEXT STEPS: Transfer to SNF DISCHARGE MEDICATIONS: Medication List START taking these medications senna-docusate sodium 8.6-50 MG tablet Commonly known as: Senokot-S Take 2 tablets by mouth 2 times daily as needed for constipation for up to 10 days. CHANGE how you take these medications * metoprolol tartrate 50 MG tablet Commonly known as: Lopressor What changed: Another medication with the same name was changed. Make sure you understand how and when to take each. * metoprolol tartrate 25 MG tablet Commonly known as: Lopressor Take 1 tablet (25 mg) by mouth 3 times daily. What changed: when to take this * This list has 2 medication(s) that are the same as other medications prescribed for you. Read the directions carefully, and ask your doctor or other care provider to review them with you. CONTINUE taking these medications Advair Diskus 500-50 MCG/ACT aerosol powder Generic drug: Fluticasone-Salmeterol biotin 5 MG capsule * busPIRone 5 MG tablet Commonly known as: Buspar * busPIRone 5 MG tablet Commonly known as: Buspar 5 mg oral nightly for one week then increase to 10 mg oral nightly calcium carbonate 500 MG chewable tablet Commonly known as: Tums carboxymethylcellulose 0.5 % ophthalmic solution Commonly known as: Refresh Plus donepezil 10 MG tablet Commonly known as: Aricept Eliquis 2.5 MG tablet Generic drug: apixaban escitalopram 10 MG tablet Commonly known as: Lexapro * furosemide 20 MG tablet Commonly known as: Lasix * furosemide 40 MG tablet Commonly known as: Lasix * furosemide 40 MG tablet Commonly known as: Lasix Take 1 tablet (40 mg) by mouth daily. Hydrocortisone 2 % lotion levothyroxine 88 MCG capsule Commonly known as: Tirosint Melatonin 3 MG tablet dispersible mupirocin 2 % ointment Commonly known as: Bactroban polyethylene glycol (PEG) 3350 17 g packet Commonly known as: Miralax potassium chloride CR 10 MEQ ER tablet Commonly known as: Klor-Con M10 spironolactone 25 MG tablet Commonly known as: Aldactone traZODone 50 MG tablet Commonly known as: Desyrel * This list has 5 medication(s) that are the same as other medications prescribed for you. Read the directions carefully, and ask your doctor or other care provider to review them with you. Where to Get Your Medications These medications were sent to [facility] [address] [place] [address] [facility] [id number] Hours: Monday to Monday 10 am to 6 pm senna-docusate sodium 8.6-50 MG tablet DIET: Adult diet Regular ACTIVITY: No restriction. COMPLEXITY OF FOLLOW UP: [] Moderate Complexity: follow up within 7-14 calendar days (41434) [] Severe Complexity: follow up within 7 calendar days (48230) FOLLOW UP TESTING, PENDING RESULTS OR REFERRALS AT TRANSITIONAL CARE VISIT: [] Yes [] No PENDING STUDIES: DISPOSITION: Skilled Facility FACILITY/HOME CARE AGENCY NAME: Follow up with No follow-up provider specified. INSTRUCTIONS TO MA/SW: Please call patient on day after discharge (must document patient contacted within 2 business days of discharge). FOLLOW UP QUESTIONS FOR MA/SW: 1. Did you get medications filled and taking them as instructed from discharge? 2. Are you following your discharge instructions from your hospital stay? 3. Please confirm patient is scheduled for a follow up appointment within the above time frame. DISCHARGE TIME: 31.5 minutes SIGNED: Mis Drew MD 01/08/2025, 11:27 AM documented in this encounter [facility] 01-08-2025 Hospital Discharge instructions Joana Garcia LPN - 01/08/2025 11:24 AM EDT Images from the original note were not included. Continuity of Care Form Patient Name: Sommer Friedman : 1940 Admit date: 01/05/2025 Discharge date: 01/08/25 Code Status Order: Full Code Advance Directives: N Admitting Physician: Mis Drew MD PCP: Kathi Juarez MD Discharging Nurse: RAYMON Garcia Discharging Hospital Unit/Room#: W7-999/[id number] A Discharging Unit Emergency Contact: Extended Emergency Contact Information Primary Emergency Contact: Parris Friedman Mobile Relation: Mother Secondary Emergency Contact: Jaylan Friedman Mobile Relation: Mother Preferred language: Salvadorean Roll Cutter needed? No Past Surgical History: History reviewed. No pertinent surgical history. Immunization History: There is no immunization history on file for this patient. Active Problems: Medical Problems Problem List * (Principal) H/O acute pancreatitis Low back pain without sciatica, unspecified back pain laterality, unspecified chronicity Lumbago Cognitive communication deficit Dementia (HCC) Acute heart failure with preserved ejection fraction (HFpEF) (HCC) Atrial fibrillation, permanent (HCC) Debility Essential hypertension Spinal stenosis of lumbar region Pure hypercholesterolemia Overview Signed 10/30/2024 12:28 PM by Casey Elkins MD 272.0:Hypercholesterolemia Osteopenia Hypothyroidism Overview Signed 10/30/2024 12:28 PM by Casey Elkins MD 244.9:Hypothyroidism, Acquired History of colonic polyps Disorder of bone and articular cartilage Overview Signed 10/30/2024 12:28 PM by Casey Elkins MD 733.90:Osteopenia Depressive disorder Overview Signed 10/30/2024 12:28 PM by Casey Elkins MD 311:Depressive Disorder NOS Anxiety state Overview Signed 10/30/2024 12:28 PM by Casey Elkins MD 300.00:Anxiety Bilateral tinnitus Constipation Acute pancreatitis, unspecified complication status, unspecified pancreatitis type Isolation/Infection: No active isolations No active infections Nurse Assessment: Last Vital Signs: BP 147/89 (BP Location: Left arm, Patient Position: Lying) Pulse 89 Temp 36.3 C (97.4 F) (Temporal) Resp 18 Ht 5' 5 (1.651 m) Wt 145 lb (65.8 kg) SpO2 (!) 88% BMI 24.13 kg/m Last documented pain score (0-10 scale): Last Weight: Wt Readings from Last 1 Encounters: 01/06/25 145 lb (65.8 kg) Mental Status: WONG Patient Mental Status: disoriented and alert IV Access: WONG IV Access: None Nursing Mobility/ADLs: Walking Minimal assistance Transfer Minimal assistance Bathing Minimal assistance Dressing Minimal assistance Toileting Minimal assistance Feeding Independent Dry Sand Molder Minimal assistance Med Delivery yes Wound Care Documentation and Therapy: Elimination: Continence: Bowel: yes Bladder: no Urinary Catheter: None Colostomy/Ileostomy/Ileal Conduit: None Date of Last BM: 01/08/25 Intake/Output Summary (Last 24 hours) at 01/08/2025 1124 Last data filed at 01/08/2025 0858 Gross per 24 hour Intake 240 ml Output -- Net 240 ml I/O last 3 completed shifts: In: 286 (4.3 mL/kg) [P.O.:236; IV Piggyback:50] Out: - (0 mL/kg) Weight: 65.8 kg Safety Concerns: sundowners syndrome and at risk for falls Impairments/Disabilities: none Nutrition Therapy: Current Nutrition Therapy: Oral diet: general and clear liquid Routes of Feeding: oral Liquids: thin liquids Daily Fluid Restriction: no Last Modified Barium Swallow with Video (Video Swallowing Test): not done Treatments at the Time of Hospital Discharge: Respiratory Treatments: Oxygen Therapy: is not on home oxygen therapy. Ventilator: No ventilator support Rehab Therapies: nursing Weight Bearing Status/Restrictions: no restriction Other Medical Equipment (for information only, NOT a DME order): walker Other Treatments: Patient's personal belongings (please select all that are sent with patient): none RN SIGNATURE: MANAGEMENT/SOCIAL WORK SECTION Inpatient Status Date: OBS 01/05 [facility] Address: [address] [place] [address] Dialysis Facility (if applicable) Name: Address: Dialysis Schedule: Phone: Fax: Machine Grinder/Reed Maker signature: ICIAN SECTION Name: Sommer Friedman Prognosis: fair Condition at Discharge: stable Rehab Potential (if transferring to Rehab): fair Recommended Labs or Other Treatments After Discharge: cbc, cmp The individual is being admitted to a nursing facility directly from an [facility] or a unit of a hospital that is not operated by or licensed by [facility] under section 5119.14 or 5160-3-15.1 5 The individual requires the level of services provided by a nursing facility for the condition for which he or she was treated in the hospital and, Physician Certification: I certify the above information and transfer of Sommer Friedman is necessary for the continuing treatment of the diagnosis listed and that she requires intermediate nursing care for greater than 30 days. Update Admission H&P: No change in H&P PHYSICIAN SIGNATURE: documented in this encounter [facility] 01-08-2025 Note Formatting of this n ote might be different from the original. Care Managment Initial Assessment Date: 01/08/2025 Patient Name: Sommer Friedman : 1940 Patient Information Source of Information: Patient [place] Name/Contact Information: kaushal Huitron via TC Cognition/Language: Impaired, Confused at baseline Permission given to speak with patient in store representative/caregiver as indicated: Yes Confirmation of Payer with patient/family: Yes Payer Name: [employer] and [facility] Mycare medicaid only [place]: No Confirmation of Primary Care Physician: Confirmed PCP Name: MD at facility Seen in last 2 years?: Yes Primary Caregiver: Other (Comment) (facility staff) If assistance needed, confirmed caregiver ready, willing and able to care for patient at discharge: Confirmed with: Living Arrangements [facility] Facility Name: [facility] Plan to Return: Yes Lives with: Other (Comment) (at [facility] Support Systems: Children, Family members, Comments (Other) (facility staff) Activities of Daily Living Ambulation: Assistance (with walker; needs assist with transfers 2/2 hip pain) Bathing/Dressing: Assistance (able to self dress/ needs assist with bathing) Elimination/Continence/Toileting: Assistance (needs assist off of toilet) Feeding: Independent Who Assists with Activities of Daily Living: facility staff Instrumental Activities of Daily Living Prescription Coverage: Yes Pharmacy Used: facility manages Medication Management: Transportation/Shopping: Transportation Mode: Needs Assistance with Transportation at Discharge: Yes Meal Preparation: Assistance Provider Meal Prep Assistance Provider Name: facility staff Laundry/Cleaning: Assistance Provider Laundry/Cleaning Assistance Provider Name: facility staff Finances/Bill Paying: Assistance Provider Finances/Bill Payer Assistance Provider Name: son Communication: Independent Types of Care Services/Equipment Utilized Durable Medical Equipment: Walker, Wheelchair (standard or power) Patient's Goal/Discharge Plan Patient expects to be discharged to: return to [facility] Discharge Planning Actions: Continue to follow, Alf Facility referral indicated Yul[place] of choice: Yulan of choice discussed (choice list not indicated. Patient is LTC at SNF/ son stated plan is to return) Patient's Choice Rights and [employer] and Collaborative Relationships Disclosed as Indicated for Post-Acute Care: NA Interdisciplinary Team Engagement: Social Work Referral for: Additional Information: Introduced self and role to patient sonParris, via TC. Patient admitted from [facility] 2/2 pain, constipation, ?UTI. Geriatrics consulted. Per Parris, plan is for return at discharge. [facility] tasked to place return referral. Hazel Jain RN [facility] 01-08-2025 Note Formatting of this n ote might be different from the original. Care Managment Initial Assessment Date: 01/08/2025 Patient Name: Sommer Friedman : 1940 Patient Information Source of Information: Patient [place] Name/Contact Information: kaushal Huitron via TC Cognition/Language: Impaired, Confused at baseline Permission given to speak with patient in store representative/caregiver as indicated: Yes Confirmation of Payer with patient/family: Yes Payer Name: [employer] and [facility] Mycare medicaid only : No Confirmation of Primary Care Physician: Confirmed PCP Name: MD at facility Seen in last 2 years?: Yes Primary Caregiver: Other (Comment) (facility staff) If assistance needed, confirmed caregiver ready, willing and able to care for patient at discharge: Confirmed with: Living Arrangements [facility] Facility Name: [facility] Plan to Return: Yes Lives with: Other (Comment) (at [facility]) Support Systems: Children, Family members, Comments (Other) (facility staff) Activities of Daily Living Ambulation: Assistance (with walker; needs assist with transfers 2/2 hip pain) Bathing/Dressing: Assistance (able to self dress/ needs assist with bathing) Elimination/Continence/Toileting: Assistance (needs assist off of toilet) Feeding: Independent Who Assists with Activities of Daily Living: facility staff Instrumental Activities of Daily Living Prescription Coverage: Yes Pharmacy Used: facility manages Medication Management: Transportation/Shopping: Transportation Mode: Needs Assistance with Transportation at Discharge: Yes Meal Preparation: Assistance Provider Meal Prep Assistance Provider Name: facility staff Laundry/Cleaning: Assistance Provider Laundry/Cleaning Assistance Provider Name: facility staff Finances/Bill Paying: Assistance Provider Finances/Bill Payer Assistance Provider Name: kaushal Communication: Independent Types of Care Services/Equipment Utilized Durable Medical Equipment: Walker, Wheelchair (standard or power) Patient's Goal/Discharge Plan Patient expects to be discharged to: return to [facility] Discharge Planning Actions: Continue to follow, Alf Facility referral indicated Yulan of choice: Yulan of choice discussed (choice list not indicated. Patient is LTC at SNF/ son stated plan is to return) Patient's Choice Rights and [employer] and Collaborative Relationships Disclosed as Indicated for Post-Acute Care: NA Interdisciplinary Team Engagement: Social Work Referral for: Additional Information: Introduced self and role to patient sonParris, via TC. Patient admitted from [facility] 2/2 pain, constipation, ?UTI. Geriatrics consulted. Per Parris, plan is for return at discharge. [facility] tasked to place return referral. Hazel Jain RN [facility] 01-08-2025 Note Formatting of this n ote might be different from the original. Return Referral placed to [facility] via [facility] per TCC request. Await review and response regarding ability to accept. TCC notified. T [facility] 01-08-2025 Note Formatting of this n ote might be different from the original. Return Referral placed to [facility] via [facility] per TCC request. Await review and response regarding ability to accept. TCC notified. T [facility] 01-08-2025 Note Return Referral plac ed to [facility] via [facility] per TCC request. Await review and response regarding ability to accept. TCC notified. [facility] 01-08-2025 Note Problem: Potential f or Compromised Skin Integrity Goal: Nutritional status is improving Outcome: Progressing [facility] 01-08-2025 Plan of care note Problem: Potential for Compromised Skin Integrity Goal: Nutritional status is improving Outcome: Progressing [facility] 01-08-2025 History of Present illness Narrative Hospitalist Progress Note Subjective: Admit Date: 01/05/2025 PCP: Kathi Juarez MD Room#: W6-629/[id number] A Chief Complaint Patient presents with Constipation Per patient she has no complaints. Per EMS she is constipated per nursing facility Brief Hospital course: Sommer is a 84 y.o. female with past medical history below who presents with chief complaint listed above. Pt was brought by EMS From [facility] after staff reporting that she was screaming in pain. Pt continuously denied abd pain to EMS AND ER. CT ABD showed constipation with severe atherosclerotic lesions, normal LA. admitted for further evaluation and management. urine culture no growth Geriatrics consulted, seen the patient, appreciated Patient will be discharged to back to facility today in stable condition Interval History: 01/08/2025-No overnight issues. Patient is seen and examined Patient resting in her bed without in any acute distress, pleasantly confused, she reports no new acute complaints As per staff patient had BM Labs reviewed CBC, CMP within normal range Case and plan discussed with patient and bedside nurse. All questions answered. Past Medical History: Medical History[1] Adult diet Regular 24HR INTAKE/OUTPUT: No intake or output data in the 24 hours ending 01/08/25 0838 LABS: CBC: Recent Labs 01/06/256 01/07/2512301/08/25 005 WBC 6.2 5.8 6.6 RBC 4.66 4.88 4.65 HGB 13.3 13.4 13.2 HCT 40.7 42.9 41.2 MCV 87.3 87.9 88.6 RDW 15.7* 15.9* 15.9* PLT 271 248 248 BMP: Recent Labs 01/06/251501/07/25 01201/08/25 005 NA 136 138 138 K 3.9 3.9 4.1 CL 105 111* 111* CO2 23 19* 19* BUN 25* 16 21 CREATININE 1.02 0.88 0.86 GLUCOSE 108 102 111 CALCIUM 9.0 8.9 9.2 ANIONGAP 8 8 8 LIVER PROFILE: Recent Labs 01/06/256 01/07/25 0124 01/08/25 0053 AST 31 30 25 ALT 24 20 17 BILITOT 0.6 0.7 0.6 ALKPHOS 70 65 65 PROT 6.9 6.4 6.5 PT/INR: No results for input(s): PROTIME, INR in the last 72 hours. CARDIAC ENZYMES: No results for input(s): TROPONINI in the last 72 hours. Procalcitonin: No results found for: PROCAL COVID-19 PCR: No results for input(s): COVID19 in the last 72 hours. Objective: Vitals: BP 147/89 (BP Location: Left arm, Patient Position: Lying) Pulse 89 Temp 36.3 C (97.4 F) (Temporal) Resp 18 Ht 5' 5 (1.651 m) Wt 145 lb (65.8 kg) SpO2 (!) 88% BMI 24.13 kg/m Pulse Ox: SpO2 Av.5 % Min: 88 % Max: 95 % Supplemental O2: Physical Exam HENT: Head: Normocephalic and atraumatic. Mouth/Throat: Mouth: Mucous membranes are moist. Cardiovascular: Rate and Rhythm: Normal rate and regular rhythm. Pulmonary: Effort: Pulmonary effort is normal. Abdominal: Palpations: Abdomen is soft. Skin: General: Skin is warm and dry. Neurological: Mental Status: She is alert. Mental status is at baseline. Psychiatric: Mood and Affect: Mood normal. Medications: Scheduled PRN Scheduled Meds[2] PRN Meds[3] Continuous Continuous Meds[4] Assessment Data: (CAT1) Reviewed 2 notes from different specialty or health system (each=1). (CAT1) Reviewed 3 or more labs/studies ordered by another provider not previously counted (each=1, panels count as 1). (CAT1) Ordered 3 or more new labs and/or studies (each=1, panels count as 1). (LOW: 2x CAT1 or independent historian MOD: 3x CAT1 or 1x CAT3 EXTENSIVE: 3x CAT1 and 1x CAT3) Acute, acute on chronic, unstable/uncontrolled chronic problems/diagnoses: Severe dementia and possible agitaion- currently calm ?uti- difficult to assess urinary sym Constipation calcification with diminutive caliber of the distal aorta measuring as little as 0.8 cm. There is patent flow within the diminutive left iliac artery branches extending to the common femoral artery. There is absent flow within the right common iliac artery with reconstitution near the iliac bifurcation. - LA wnl, abd benign, will monitor Stable chronic problems affecting care, new non-acute diagnoses: A-fib Hypothyroidism Plan As a result of the above findings & factors, the following mgmt was pursued: - Geriatrics consulted, seen the patient, recommendations noted - Urine cultures negative - Continue with stool softeners - am labs, replace lytes prn - PT/OT/CM/SW - delirium precautions: increase activity, limit nighttime disturbances, and avoid anticholinergic meds, benzos, etc - DVT prophylaxis: encourage ambulation and already anticoagulated Complexity: Acute illness or injury posing a threat to life or body function (HIGH). Risk: Advance Directive: Full Code Anticipated Discharge - Date -today - Location - Skilled Facility - Pending the following -DC today Total time spent (which include face to face and non face to face encounters) : More than 30 minutes Extended Emergency Contact Information Primary Emergency Contact: Parris Friedman Mobile Relation: Son Secondary Emergency Contact: ElderJaylan Mobile Relation: Son Preferred language: Salvadorean Roll Cutter needed? No Mis Drew MD Division of Hospital Medicine [facility] [1] Past Medical History: Diagnosis Date Afib (CMS/HCC) (HCC) Anxiety CHF (congestive heart failure) (HCC) COPD (chronic obstructive pulmonary disease) (HCC) Dementia (HCC) Depression Hyperlipidemia Hypertension Hypothyroid Insomnia Pulmonary HTN (HCC) [2] apixaban, 5 mg, Oral, BID busPIRone, 5 mg, Oral, TID cefTRIAXone, 1,000 mg, IntraVENous, q24h donepezil, 10 mg, Oral, Nightly escitalopram, 15 mg, Oral, Daily levothyroxine, 88 mcg, Oral, qAM AC melatonin, 3 mg, Oral, Nightly metoprolol tartrate, 25 mg, Oral, BID morphine sulfate, 2 mg, IntraVENous, Once senna-docusate sodium, 2 tablet, Oral, BID [3] PRN medications: acetaminophen OR acetaminophen, ondansetron ODT OR ondansetron, Petrolatum, polyethylene glycol (PEG) 3350 [4] [facility] Geriatric Medicine Inpatient Consult Service Admission Date: 01/05/2025 Assessment Principal Problem: H/O acute pancreatitis Active Problems: Acute pancreatitis, unspecified complication status, unspecified pancreatitis type Plan Dementia -Resides in long-term care. Has been at [facility] for about 2 years per family report. -Continue donepezil if there is no evidence of bradycardia. - Continue supportive care. -MRI brain 11/27/23 - moderate chronic microvascular ischemia -01/07: Stable, continue plan. Noted patient on Benadryl PRN at ECF. AVOID Benadryl due to risk of worsening confusion. Constipation - Has scheduled Senokot ordered which was increased today. - Increases risk of inpatient delirium. -01/07: reports having a BM today. Continue plan. Delirium Predisposing factors for this patient include: Advanced age, dementia, hearing loss Precipitating factors for this patient include: Possible infection, pain, constipation -Delirium protocol - Continue evidence-based nonpharmacologic interventions for prevention and treatment of delirium: - redirect/reorient/reassure frequently - avoid restraints and instead utilize sitter as needed for safety - early mobilization as medically appropriate, OOB for meals as able - have patient use glasses and hearing aides - use familiar objects (family photos and items from home) - sleep hygiene, limit nighttime care to promote sleep/wake cycle - hydrate and encourage PO intake when medically appropriate - minimize/camouflage lines and tethers as able - minimize narcotics as long as pain is adequately controlled - avoid benzos and anticholinergic medications -Avoid antipsychotics unless patient is a danger to themselves or others. -Encourage PO intake, time up in chair, family visits, supervised ambulation, and sleep hygiene -If agitated, assess for and consider treating for pain -QTc= no EKG this admission. 11/19/24 EKG - QTC 432 ms. -Continue scheduled melatonin at HS -Monitor for constipation/urinary retention - last BM 01/07 01/07: Improving vs resolved. Debility -Uses walker at baseline. - PT/OT - recommend ECF without therapy -01/07: Stable. Anticipate return to LTC at discharge. Depression/Anxiety --Continue Lexapro 15mg daily. Recommend as outpatient lowering to 10mg daily. Can consider switching to Sertraline outpatient. --Takes Buspar 10mg at HS and 5mg in the am and lunchtime at the facility. This was an increase since last hospitalization in October when she was taking 5mg BID. --01/07: will resume Buspar at 5mg TID and monitor. Follow-up: will follow with you Subjective Chief Complaint: confusion Geriatrics consulted for severe dementia with concern for agitation HPI- The patient is known to me. 84 year old female with PMH of atrial fibrillation, anxiety, Dementia, CHF, COPD, Depression, HLD, HTN, Hypothyroidism, Insomnia, pulmonary hypertension, L1 compression fracture presented from [facility] on 01/04/25 with complaints of abdominal pain and agitation. On admission, she denied abdominal pain. CT abdomen pelvis showed retained feces, marked atherosclerotic calcification of the aorta with occluded right common iliac artery and reconstitution just above the iliac bifurcation. Urine culture with normal shonda. Lipase elevated 112. Labs today: Na 138, K 3.9, BUN 16, creat 0.88. albumin 3.1 WBC 5.8, Hgb 13.4 Known to geriatrics inpatient team - followed in October at [facility]. She was admitted for acute heart failure, atrial fibrillation with RVR. Followed by geriatrics for Dementia. Son Parris reported she lives in [facility] for 2 years. Diagnosed with Dementia at that time. Cognition declining. Can get irritable and agitated. [facility] nurse reported patient gets agitated easily. Mostly pleasant. May need Standby assist for bathing. Usually dresses self. Uses a wheelchair. Taking Buspar, Donepezil, and Lexapro. Interval History: Remains on general medical/surgical floor . -Patient reports she is at [facility] and is here due to her brain. Reports she had a BM today (assisted back to bed from bathroom). Eating ok. Sleeping ok. She gets anxious that her bed sheets are not straight. -Nursing reports she has been pleasantly confused. No agitation, not screaming like she had been. Seen by PT. Ambulated 50 ft with supervision and use of FWW. Recommending ECF without PT. Review of Systems Constitutional: Negative for fatigue and fever. Respiratory: Positive for shortness of breath (with activity). Negative for cough. Gastrointestinal: Negative for abdominal pain, constipation and diarrhea. Genitourinary: Negative for difficulty urinating. Musculoskeletal: Positive for gait problem. Negative for arthralgias. Psychiatric/Behavioral: Positive for confusion. Negative for dysphoric mood and sleep disturbance. Objective BP 140/81 (BP Location: Left arm, Patient Position: Sitting) Pulse 85 Temp (!) 35.8 C (96.5 F) (Temporal) Resp 18 Ht 5' 5 (1.651 m) Wt 145 lb (65.8 kg) SpO2 96% BMI 24.13 kg/m Intake/Output Summary (Last 24 hours) at 01/07/2025 1416 Last data filed at 01/07/2025 0713 Gross per 24 hour Intake 286 ml Output -- Net 286 ml Wt Readings from Last 3 Encounters: 01/06/25 145 lb (65.8 kg) 11/19/24 132 lb (59.9 kg) 10/29/24 128 lb (58.1 kg) Current Medications[1] Physical Exam Vitals reviewed. Constitutional: General: She is not in acute distress. HENT: Right Ear: Decreased hearing noted. Left Ear: Decreased hearing noted. Cardiovascular: Rate and Rhythm: Normal rate. Pulmonary: Effort: Pulmonary effort is normal. No respiratory distress. Abdominal: General: Bowel sounds are normal. There is no distension. Palpations: Abdomen is soft. Tenderness: There is no abdominal tenderness. Musculoskeletal: Right lower leg: No edema. Left lower leg: No edema. Skin: General: Skin is warm and dry. Neurological: Mental Status: She is alert. She is disoriented. Comments: Place is [facility] Oriented to month, not date or year. States she is here for her brain. Psychiatric: Attention and Perception: She is inattentive (slightly). Mood and Affect: Mood normal. Behavior: Behavior is cooperative. Cognition and Memory: Cognition is impaired. Memory is impaired. Labs and Imaging: Recent Results (from the past 24 hours) Urine culture Collection Time: 01/06/25 4:58 PM Specimen: Urine, Clean Catch Result Value Ref Range Urine Culture Normal urogenital shonda present CBC auto differential Collection Time: 01/07/25 1:24 AM Result Value Ref Range Auto WBC 5.8 3.6 - 10.7 10*3/uL RBC 4.88 3.80 - 5.20 10*6/uL Hemoglobin 13.4 11.7 - 16.0 g/dL Hematocrit 42.9 35.0 - 47.0 % MCV 87.9 77.0 - 99.0 fL MCH 27.5 26.0 - 34.0 pg MCHC 31.2 30.5 - 36.0 % RDW 15.9 (H) 11.5 - 15.0 % Platelets 248 140 - 440 10*3/uL MPV 9.6 9.0 - 12.7 fL nRBC 0.0 0.0 - 2.0 /100 WBCs Neutrophils Relative 38.7 38.0 - 82.0 % Lymphocytes Relative 49.1 (H) 15.0 - 45.0 % Monocytes Relative 9.5 5.0 - 13.0 % Eosinophils Relative 1.9 0.0 - 6.0 % Basophils Relative 0.5 0.0 - 2.0 % Immature Grans % 0.3 0.0 - 2.0 % Neutrophils Absolute 2.2 1.8 - 7.5 10*3/uL Lymphocytes Absolute 2.9 1.0 - 4.3 10*3/uL Monocytes Absolute 0.6 0.0 - 0.9 10*3/uL Eosinophils Absolute 0.1 0.0 - 0.5 10*3/uL Basophils Absolute 0.0 0.0 - 0.2 10*3/uL Immature Grans Absolute 0.0 <0.1 10*3/uL Comprehensive metabolic panel Collection Time: 01/07/25 1:24 AM Result Value Ref Range SODIUM 138 136 - 145 mmol/L POTASSIUM 3.9 3.5 - 5.1 mmol/L CHLORIDE 111 (H) 98 - 107 mmol/L CARBON DIOXIDE 19 (L) 23 - 31 mmol/L ANION GAP 8 3 - 13 mmol/L UREA NITROGEN 16 9 - 23 mg/dL CREATININE 0.88 0.57 - 1.11 mg/dL GLUCOSE 102 82 - 115 mg/dL CALCIUM 8.9 8.8 - 10.0 mg/dL AST (SGOT) 30 <34 U/L ALT 20 <30 U/L ALKALINE PHOSPHATASE 65 40 - 150 U/L ALBUMIN 3.1 (L) 3.4 - 4.8 g/dL BILIRUBIN, TOTAL 0.7 <1.2 mg/dL TOTAL PROTEIN 6.4 6.4 - 8.3 g/dL eGFR 65.7 >60.0 mL/min/1.73m*2 Lab Results Component Value Date TSH 2.81 01/06/2025 Lab Results Component Value Date [id number] 1,124 (H) 10/30/2024 No results found for: VITD25 Reviewed: allergies, previous encounters, social history, imaging, active problem lists, medications, and labs [1] Current Facility-Administered Medications: acetaminophen (Tylenol) tablet 650 mg, 650 mg, Oral, q6h PRN, 650 mg at 01/06/25 1534 OR acetaminophen (Tylenol) suppository 650 mg, 650 mg, Rectal, q6h PRN, Vesta Amaya MD apixaban (Eliquis) tablet 5 mg, 5 mg, Oral, BID, Vesta Amaya MD, 5 mg at 01/07/25 0834 cefTRIAXone (Rocephin) 1,000 mg in sodium chloride 0.9 % 50 mL IVPB Mini-Bag Plus, 1,000 mg, IntraVENous, q24h, Vesta Amaya MD, Stopped at 01/07/25 0234 donepezil (Aricept) tablet 10 mg, 10 mg, Oral, Nightly, Vesta Amaya MD, 10 mg at 01/06/25 2235 escitalopram (Lexapro) tablet 15 mg, 15 mg, Oral, Daily, Vesta Amaya MD, 15 mg at 01/07/25 0834 levothyroxine (Synthroid, Levoxyl) tablet 88 mcg, 88 mcg, Oral, qAM AC, Vesta Amaya MD, 88 mcg at 01/07/25 0522 melatonin tablet 3 mg, 3 mg, Oral, Nightly, Shawanda Clifton MD metoprolol tartrate (Lopressor) tablet 25 mg, 25 mg, Oral, BID, Vesta Amaya MD, 25 mg at 01/07/25 0834 morphine injection 2 mg, 2 mg, IntraVENous, Once, Luana Trinidad DO ondansetron ODT (Zofran-ODT) disintegrating tablet 4 mg, 4 mg, Oral, q8h PRN OR ondansetron (Zofran) injection 4 mg, 4 mg, IntraVENous, q6h PRN, Vesta Amaya MD Petrolatum ointment, , Topical, BID PRN, Vesta Amaya MD polyethylene glycol (PEG) 3350 (Miralax) packet 17 g, 17 g, Oral, Daily PRN, Vesta Amaya MD senna-docusate sodium (Senokot-S) 8.6-50 MG tablet 2 tablet, 2 tablet, Oral, BID, Mis Drew MD Images from the original note were not included. PHYSICAL THERAPY [facility] Initial Evaluation Name/MRN: Clemencia Friedman ([id number]) Evaluation Date: 01/07/2025 Date of : 1940 Admission Date: 01/05/2025 11:54 PM Age: 84 y.o. [facility] Discharge Recommendation: ECF without PT Assessment IMPRESSION: pt in hospital for h/o acute pancreatitis. Pt stand by assist for functional mobility, ambulated with walker. No further acute care PT needs at this time. Disch acute care PT. Recommend return to facility. Admitting Diagnosis: h/o acute pancreatitis Prognosis: fair Performance Deficits /Impairments: N/A Decision Making: Low Complexity Subjective Pt in bed. Agreeable to PT. Pain: no c/o Past Medical History: Medical History[1] Past Surgical History: Surgical History[2] Admission Diagnosis: Patient Active Problem List Diagnosis Date Noted H/O acute pancreatitis 01/06/2025 Acute pancreatitis, unspecified complication status, unspecified pancreatitis type 01/06/2025 Atrial fibrillation, permanent (HCC) 10/30/2024 Debility 10/30/2024 Essential hypertension 10/30/2024 Pure hypercholesterolemia 10/30/2024 Hypothyroidism 10/30/2024 Disorder of bone and articular cartilage 10/30/2024 Depressive disorder 10/30/2024 Acute heart failure with preserved ejection fraction (HFpEF) (HCC) 10/29/2024 Lumbago 04/12/2024 Low back pain without sciatica, unspecified back pain laterality, unspecified chronicity 04/10/2024 Cognitive communication deficit 12/22/2023 Constipation 08/10/2022 Dementia (HCC) 08/02/2022 Spinal stenosis of lumbar region 03/19/2020 Osteopenia 03/19/2020 History of colonic polyps 03/19/2020 Bilateral tinnitus 03/19/2020 Anxiety state 07/28/2014 Medical Precautions: No active isolations Proper PPE donned/doffed in accordance with facility standards. Fall Risk: Eckert Fall Risk Score: 85 (High Risk) Precautions/Restrictions: Fall Precautions Family/Caregiver Present: none Overall Cognitive Status: Exceptions - Arousal/alertness: appropriate responses to stimuli - Following commands: follows one step commands consistently - Safety judgement: good awareness of safety precautions Overall Orientation Status: Oriented to Person Vision: no acute vision changes reported Hearing: grossly WFL Social/Functional History [facility]. Assistive Equipment: front wheeled walker and wheelchair - manual Prior Level of Function Prior Level of ADL Function: Other Prior Level of Mobility: Other; Device: Front wheeled walker and Wheelchair - manual Prior Level of Transfers: Other Objective Lower Extremity Assessment AROM: Exceptions: grossly WFL PROM: Not assessed this session Strength: Exceptions: observed at least 3/5 BLEs through functional mobility Sensation: Not assessed this session Balance: sat on EOB indep. Static stance with supervision. No LOB with walker support. Bed Mobility: Supine to sit: Modified Independent Scooting: Independent Transfers Sit to stand: Supervision Stand to sit: Supervision Ambulation Ambulation 1 Assistive device(s) used: Front wheeled walker Assist level: Supervision Distance (ft): 50ft Quality of gait: slower danna, decreased step length, no LOB Heart Failure on Admission Dyspnea: No Heart failure diagnosis: Yes Outcome Measures AM-PAC How much HELP from another person do you currently need Turning from your back to your side while in a flat bed without using bedrails?: None Moving from lying on your back to sitting on the side of a flat bed without using bedrails?: None Moving to and from a bed to a chair (including a wheelchair)?: None Standing up from a chair using your arms (wheelchair or bedside chair)?: None Walking in a hospital room?: None Stair climbing assessed?: No AM-PAC Inpatient Mobility Raw Score (No Stairs) : 20 JH-HLM JH-HLM Score: Walked 25 ft or more (i.e. walked outside of room) Plan No skilled acute PT indicated at this time. Please reconsult should changes occur. Safety/Education Safety Safety Devices in place: with nursing manager, gait belt Restraints: No Education Education Given To: patient Education Provided: PT Role Education Method: Verbal Barriers to Learning: Education Outcome: Goals Patient Stated Goal: none stated when asked Therapy Time Individual Co-Treatment Co-Evaluation Time In 1130 Time Out 1144 Minutes 14 Joanne Ferreira PT Patient's Physical Therapy Plan of Care supervision is transferred to a [facility] Physical Therapist. Goals and/or treatment plan was established in collaboration with patient/family/other representatives. [1] Past Medical History: Diagnosis Date Afib (CMS/HCC) (HCC) Anxiety CHF (congestive heart failure) (HCC) COPD (chronic obstructive pulmonary disease) (HCC) Dementia (HCC) Depression Hyperlipidemia Hypertension Hypothyroid Insomnia Pulmonary HTN (HCC) [2] History reviewed. No pertinent surgical history. Nutrition rescreen completed. Chart reviewed. Patient to be monitored and followed by the diet research technician. Lisa Munroe, DT Hospitalist Progress Note Subjective: Admit Date: 01/05/2025 PCP: Kathi Juarez MD Room#: W6-139/W6-656 A Chief Complaint Patient presents with Constipation Per patient she has no complaints. Per EMS she is constipated per nursing facility Brief Hospital course: Sommer is a 84 y.o. female with past medical history below who presents with chief complaint listed above. Pt was brought by EMS From [facility] after staff reporting that she was screaming in pain. Pt continuously denied abd pain to EMS AND ER. CT ABD showed constipation with severe atherosclerotic lesions, normal LA. admitted for further evaluation and management. Geriatrics consulted, seen the patient, appreciated Interval History: 01/07/2025-No overnight issues. Patient is seen and examined She is comfortably resting in her bed, pleasantly confused, she reports no new acute complaints Labs reviewed CBC, CMP within normal range, urine culture no growth Case and plan discussed with patient and bedside nurse. All questions answered. Past Medical History: Medical History[1] Adult diet Regular 24HR INTAKE/OUTPUT: Intake/Output Summary (Last 24 hours) at 01/07/2025 0807 Last data filed at 01/06/2025 1700 Gross per 24 hour Intake 120 ml Output -- Net 120 ml LABS: CBC: Recent Labs 01/06/25 0016 01/07/25 0124 WBC 6.2 5.8 RBC 4.66 4.88 HGB 13.3 13.4 HCT 40.7 42.9 MCV 87.3 87.9 RDW 15.7* 15.9* PLT 271 248 BMP: Recent Labs 01/06/25 0016 01/07/25 0124 NA 136 138 K 3.9 3.9 CL 105 111* CO2 23 19* BUN 25* 16 CREATININE 1.02 0.88 GLUCOSE 108 102 CALCIUM 9.0 8.9 ANIONGAP 8 8 LIVER PROFILE: Recent Labs 01/06/25 0016 01/07/25 0124 AST 31 30 ALT 24 20 BILITOT 0.6 0.7 ALKPHOS 70 65 PROT 6.9 6.4 PT/INR: No results for input(s): PROTIME, INR in the last 72 hours. CARDIAC ENZYMES: No results for input(s): TROPONINI in the last 72 hours. Procalcitonin: No results found for: PROCAL COVID-19 PCR: No results for input(s): COVID19 in the last 72 hours. Objective: Vitals: BP 140/81 (BP Location: Left arm, Patient Position: Sitting) Pulse 85 Temp (!) 35.8 C (96.5 F) (Temporal) Resp 18 Ht 5' 5 (1.651 m) Wt 145 lb (65.8 kg) SpO2 96% BMI 24.13 kg/m Pulse Ox: SpO2 Av.3 % Min: 95 % Max: 99 % Supplemental O2: Physical Exam HENT: Head: Normocephalic and atraumatic. Mouth/Throat: Mouth: Mucous membranes are moist. Cardiovascular: Rate and Rhythm: Normal rate and regular rhythm. Pulmonary: Effort: Pulmonary effort is normal. Abdominal: Palpations: Abdomen is soft. Skin: General: Skin is warm and dry. Neurological: Mental Status: She is alert. Mental status is at baseline. Psychiatric: Mood and Affect: Mood normal. Medications: Scheduled PRN Scheduled Meds[2] PRN Meds[3] Continuous Continuous Meds[4] Assessment Data: (CAT1) Reviewed 2 notes from different specialty or health system (each=1). (CAT1) Reviewed 3 or more labs/studies ordered by another provider not previously counted (each=1, panels count as 1). (CAT1) Ordered 3 or more new labs and/or studies (each=1, panels count as 1). (LOW: 2x CAT1 or independent historian MOD: 3x CAT1 or 1x CAT3 EXTENSIVE: 3x CAT1 and 1x CAT3) Acute, acute on chronic, unstable/uncontrolled chronic problems/diagnoses: Severe dementia and possible agitaion- currently calm ?uti- difficult to assess urinary sym Constipation calcification with diminutive caliber of the distal aorta measuring as little as 0.8 cm. There is patent flow within the diminutive left iliac artery branches extending to the common femoral artery. There is absent flow within the right common iliac artery with reconstitution near the iliac bifurcation. - LA wnl, abd benign, will monitor Stable chronic problems affecting care, new non-acute diagnoses: A-fib Hypothyroidism Plan As a result of the above findings & factors, the following mgmt was pursued: - Geriatrics consulted, seen the patient, appreciated - Urine cultures negative - Continue with stool softeners - am labs, replace lytes prn - PT/OT/CM/SW - delirium precautions: increase activity, limit nighttime disturbances, and avoid anticholinergic meds, benzos, etc - DVT prophylaxis: encourage ambulation and already anticoagulated Complexity: Acute illness or injury posing a threat to life or body function (HIGH). Risk: Advance Directive: Full Code Anticipated Discharge - Date -likely tomorrow - Location - Skilled Facility - Pending the following -clinical course Total time spent (which include face to face and non face to face encounters) : 37.5 minutes Extended Emergency Contact Information Primary Emergency Contact: Parris Friedman Mobile Relation: Son Secondary Emergency Contact: Jaylan Friedman Mobile Relation: Son Preferred language: Salvadorean Roll Cutter needed? No Mis Drew MD Division of Hospital Medicine [place] [facility] [1] Past Medical History: Diagnosis Date Afib (CMS/HCC) (HCC) Anxiety CHF (congestive heart failure) (HCC) COPD (chronic obstructive pulmonary disease) (HCC) Dementia (HCC) Depression Hyperlipidemia Hypertension Hypothyroid Insomnia Pulmonary HTN (HCC) [2] apixaban, 5 mg, Oral, BID cefTRIAXone, 1,000 mg, IntraVENous, q24h donepezil, 10 mg, Oral, Nightly escitalopram, 15 mg, Oral, Daily levothyroxine, 88 mcg, Oral, qAM AC melatonin, 3 mg, Oral, Nightly metoprolol tartrate, 25 mg, Oral, BID morphine sulfate, 2 mg, IntraVENous, Once senna-docusate sodium, 2 tablet, Oral, Daily [3] PRN medications: acetaminophen OR acetaminophen, ondansetron ODT OR ondansetron, Petrolatum, polyethylene glycol (PEG) 3350 [4] documented in this encounter [facility] 01-08-2025 Plan of care note Problem: Potential for Compromised Skin Integrity Goal: Skin Integrity is Maintained or Improved Outcome: Progressing Goal: Nutritional status is improving Outcome: Progressing Problem: Urinary Incontinence Goal: Perineal skin integrity is maintained or improved Outcome: Progressing [facility] 01-07-2025 Note Problem: Urinary Inc ontinence Goal: Perineal skin integrity is maintained or improved Outcome: Progressing [facility] 01-07-2025 Plan of care note Problem: Urinary Incontinence Goal: Perineal skin integrity is maintained or improved Outcome: Progressing [facility] 01-07-2025 Plan of care note Problem: Knowledge Deficit Goal: Patient/family/caregiver demonstrates understanding of disease process, treatment plan, medications, and discharge instructions Outcome: Progressing Problem: Potential for Compromised Skin Integrity Goal: Skin Integrity is Maintained or Improved Outcome: Progressing [facility] 01-07-2025 Plan of care note Problem: Potential for Compromised Skin Integrity Goal: Skin Integrity is Maintained or Improved Outcome: Progressing Goal: Nutritional status is improving Outcome: Progressing Problem: Urinary Incontinence Goal: Perineal skin integrity is maintained or improved Outcome: Progressing [facility] 01-06-2025 Consult note Associated Order (s): IP CONSULT TO GERIATRICS Images from the original note were not included. [facility] Geriatric Medicine Inpatient Consult Service Admission Date: 01/05/2025 Admission Status: INPATIENT Reason for Appointment Chief Complaint Patient presents with Constipation Per patient she has no complaints. Per EMS she is constipated per nursing facility Geriatrics consulted for severe dementia with concern for agitation Assessment Principal Problem: H/O acute pancreatitis Active Problems: Acute pancreatitis, unspecified complication status, unspecified pancreatitis type Plan During this encounter, I spent 45 minutes -Reviewing previous notes, -Reviewing labs, -Documenting clinical information in the patients electronic record, -Coordination of care for the patient, and -Performing a medically appropriate exam and/or evaluation. Dementia -History of dementia at baseline. - Resides in long-term care. Has been at [facility] for about 2 years per family report. -Continue donepezil if there is no evidence of bradycardia. - Continue supportive care. Constipation -Unclear when last bowel movement was. Constipation may have contributed to abdominal pain that she allegedly reported prior to admission. - Has scheduled Senokot ordered. If this is not effective can schedule MiraLAX. - Increases risk of inpatient delirium. Delirium -Nursing Delirium Screen (Nu-Desc): Nursing Delirium Symptom Checklist Total Score: 2 Predisposing factors for this patient include: Advanced age, dementia, hearing loss Precipitating factors for this patient include: Possible infection, pain -Delirium protocol - Continue evidence-based nonpharmacologic interventions for prevention and treatment of delirium: - redirect/reorient/reassure frequently - avoid restraints and instead utilize sitter as needed for safety - early mobilization as medically appropriate, OOB for meals as able - have patient use glasses and hearing aides - use familiar objects (family photos and items from home) - sleep hygiene, limit nighttime care to promote sleep/wake cycle - hydrate and encourage PO intake when medically appropriate - minimize/camouflage lines and tethers as able - minimize narcotics as long as pain is adequately controlled - avoid benzos and anticholinergic medications -Avoid antipsychotics unless patient is a danger to themselves or others. -Encourage PO intake, time up in chair, family visits, supervised ambulation, and sleep hygiene -If agitated, assess for and consider treating for pain -QTc= -Start scheduled melatonin at HS -Monitor for constipation/urinary retention - last BM unknown Debility -Uses assist devices at baseline. - PT/OT consulted. Evaluation pending. Subjective: HPI 84 y.o. year-old female presented from [facility] for pain on 01/05/2025. Staff from [facility] reported that she was screaming in pain. On admission to the hospital she denied any abdominal pain. CT abdomen pelvis showed retained feces. No free air noted. 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 Mild pyuria on urinalysis. Urine culture pending. Collateral history obtained from NA. Not sure where she is or why she is here. Denies any pain and states that she feels better. Quick Cognitive Screen (QCS): Positive QCS Intervention filter worker completed: Pt deemed to not be an elopement risk Nursing Delirium Screen (Nu-Desc): Nursing Delirium Symptom Checklist Total Score: 2 Known to the [facility]? NoSeen by geriatric medicine inpatient team at [facility] in October. Allergies[1] Medications reviewed in hospital records. Medical History[2] Surgical History[3] Social History Tobacco Use Smoking status: Former Current packs/day: 1.00 Average packs/day: 1 pack/day for 0.4 years (0.4 ttl pk-yrs) Types: Cigarettes Start date: 2024 Smokeless tobacco: Not on file Substance Use Topics Alcohol use: Not Currently Present at visit: patient Marital status: Children: 2 sons Living arrangement: Long-term care has lived in [facility] for the last 2 years. Household safety problems: N/A Driving safety concerns: Does not drive Elder abuse: Community resources: . N/A Healthcare Power of Bone Tender: yes Living Will: unknown Code Status: Full Code Family History Family History[4] No family status information on file. Review of Systems HENT: Positive for hearing loss (states that she doesnt' wear her hearing aid). Cardiovascular: Negative for chest pain. Respiratory: Negative for shortness of breath. Functional Status Prior to Admission (I: Independent, A: Assisted, D: Dependent) ADLs I A D Notes Bathing [] [x] [] Dressing [x] [] [] Toileting [x] [] [] Transfers [x] [] [] Feeding [x] [] [] Ambulation [] [] [] Assistive devices: walker and wheelchair IADLs I A D Telephone [] [] [] Transportation [] [] [x] Shopping [] [x] [] Meal prep [] [x] [] Housework [] [x] [] Medications [] [x] [] Finances [] [x] [] Objective: BP (!) 164/82 Pulse 80 Temp 36.2 C (97.1 F) (Temporal) Resp 18 Ht 5' 5 (1.651 m) Wt 145 lb (65.8 kg) SpO2 95% BMI 24.13 kg/m Physical Exam Constitutional: General: She is not in acute distress. HENT: Right Ear: Decreased hearing noted. Left Ear: Decreased hearing noted. Cardiovascular: Rate and Rhythm: Normal rate. Pulmonary: Effort: Pulmonary effort is normal. No respiratory distress. Abdominal: General: Bowel sounds are normal. Palpations: Abdomen is soft. Musculoskeletal: Right lower leg: No edema. Left lower leg: No edema. Skin: General: Skin is warm and dry. Neurological: Mental Status: She is alert. She is disoriented. Psychiatric: Attention and Perception: Attention normal. Mood and Affect: Mood normal. Speech: Speech normal. Behavior: Behavior is cooperative. Cognition and Memory: Memory is impaired. 3 item recall/short term memory: not assessed Clock Drawing Test: not assessed Labs and Imaging: Lab Results Component Value Date WBC 6.2 01/06/2025 HGB 13.3 01/06/2025 HCT 40.7 01/06/2025 MCV 87.3 01/06/2025 PLT 271 01/06/2025 Lab Results Component Value Date NA 136 01/06/2025 K 3.9 01/06/2025 CL 105 01/06/2025 CO2 23 01/06/2025 BUN 25 (H) 01/06/2025 CREATININE 1.02 01/06/2025 GLUCOSE 108 01/06/2025 CALCIUM 9.0 01/06/2025 PROT 6.9 01/06/2025 BILITOT 0.6 01/06/2025 ALKPHOS 70 01/06/2025 AST 31 01/06/2025 ALT 24 01/06/2025 Lab Results Component Value Date TSH 2.81 01/06/2025 UA: Lab Results Component Value Date COLORU Yellow 01/06/2025 GLUCOSEU Normal 01/06/2025 UROBILINOGEN Normal 01/06/2025 Susceptibility data from last 90 days. Collected Specimen Info Organism Amoxicillin + Clavulanate Ampicillin ( g/mL) Ampicillin/Sulbactam ( g/mL) Aztreonam ( g/mL) Cefazolin ( g/mL) Cefepime ( g/mL) Ceftriaxone ( g/mL) Ciprofloxacin ( g/mL) 10/17/24 Urine, Clean Catch Proteus mirabilis S S S S I S S S Collected Specimen Info Organism Ertapenem Gentamicin ( g/mL) Meropenem ( g/mL) Nitrofurantoin (ug/mL) Pipercillin + Tazobactam ( g/mL) Trimethoprim/Sulfa-Methoxazole ( g/mL) 10/17/24 Urine, Clean Catch Proteus mirabilis S S S R S S Pain Management Panel No data to display === 01/05/25 === CT ABDOMEN PELVIS W CONTRAST - Impression - 1. 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 2. Fatty liver 3. Sigmoid diverticulosis Report Dictated on Electronically Signed By: Dion Valenzuela MD Electronically Signed Date/Time: 01/06/2025 3:00 AM EDT No results found for this or any previous visit from the past 365 days. === 10/29/24 === XR CHEST 2 VIEWS - Impression - Mild atelectasis in left lung base. Report Dictated on Electronically Signed By: Jt Munson MD Electronically Signed Date/Time: 10/29/2024 10:55 AM EDT === 11/22/23 === MR BRAIN W AND WO CONTRAST - Impression - Patchy and confluent areas of hyperintense signal on T2-weighted and FLAIR images is nonspecific but likely represent moderate chronic microvascular ischemia. Report Dictated on Electronically Signed By: Jt Munson MD Electronically Signed Date/Time: 11/27/2023 8:37 AM EDT Comment: Please note that portions of this report were produced using speech recognition software and may contain errors related to that system including errors in grammar, punctuation, and spelling, as well as words and phrases that may be inappropriate. If there are any questions or concerns please feel free to contact the dictating provider for clarification. [1] Allergies Allergen Reactions Doxycycline Other Reaction(s): Not available Gabapentin Propoxyphene [2] Past Medical History: Diagnosis Date Afib (CMS/HCC) (HCC) Anxiety CHF (congestive heart failure) (HCC) COPD (chronic obstructive pulmonary disease) (HCC) Dementia (HCC) Depression Hyperlipidemia Hypertension Hypothyroid Insomnia Pulmonary HTN (HCC) [3] History reviewed. No pertinent surgical history. [4] No family history on file. [facility] 01-06-2025 Consult note Associated Order (s): IP CONSULT TO GERIATRICS Images from the original note were not included. [facility] Geriatric Medicine Inpatient Consult Service Admission Date: 01/05/2025 Admission Status: INPATIENT Reason for Appointment Chief Complaint Patient presents with Constipation Per patient she has no complaints. Per EMS she is constipated per nursing facility Geriatrics consulted for severe dementia with concern for agitation Assessment Principal Problem: H/O acute pancreatitis Active Problems: Acute pancreatitis, unspecified complication status, unspecified pancreatitis type Plan During this encounter, I spent 45 minutes -Reviewing previous notes, -Reviewing labs, -Documenting clinical information in the patients electronic record, -Coordination of care for the patient, and -Performing a medically appropriate exam and/or evaluation. Dementia -History of dementia at baseline. - Resides in long-term care. Has been at [facility] for about 2 years per family report. -Continue donepezil if there is no evidence of bradycardia. - Continue supportive care. Constipation -Unclear when last bowel movement was. Constipation may have contributed to abdominal pain that she allegedly reported prior to admission. - Has scheduled Senokot ordered. If this is not effective can schedule MiraLAX. - Increases risk of inpatient delirium. Delirium -Nursing Delirium Screen (Nu-Desc): Nursing Delirium Symptom Checklist Total Score: 2 Predisposing factors for this patient include: Advanced age, dementia, hearing loss Precipitating factors for this patient include: Possible infection, pain -Delirium protocol - Continue evidence-based nonpharmacologic interventions for prevention and treatment of delirium: - redirect/reorient/reassure frequently - avoid restraints and instead utilize sitter as needed for safety - early mobilization as medically appropriate, OOB for meals as able - have patient use glasses and hearing aides - use familiar objects (family photos and items from home) - sleep hygiene, limit nighttime care to promote sleep/wake cycle - hydrate and encourage PO intake when medically appropriate - minimize/camouflage lines and tethers as able - minimize narcotics as long as pain is adequately controlled - avoid benzos and anticholinergic medications -Avoid antipsychotics unless patient is a danger to themselves or others. -Encourage PO intake, time up in chair, family visits, supervised ambulation, and sleep hygiene -If agitated, assess for and consider treating for pain -QTc= -Start scheduled melatonin at HS -Monitor for constipation/urinary retention - last BM unknown Debility -Uses assist devices at baseline. - PT/OT consulted. Evaluation pending. Subjective: HPI 84 y.o. year-old female presented from [facility] care for pain on 01/05/2025. Staff from [facility] reported that she was screaming in pain. On admission to the hospital she denied any abdominal pain. CT abdomen pelvis showed retained feces. No free air noted. 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 Mild pyuria on urinalysis. Urine culture pending. Collateral history obtained from NA. Not sure where she is or why she is here. Denies any pain and states that she feels better. Quick Cognitive Screen (QCS): Positive QCS Intervention filter worker completed: Pt deemed to not be an elopement risk Nursing Delirium Screen (Nu-Desc): Nursing Delirium Symptom Checklist Total Score: 2 Known to the [facility]? Pham by geriatric medicine inpatient team at [facility] in October. Allergies[1] Medications reviewed in hospital records. Medical History[2] Surgical History[3] Social History Tobacco Use Smoking status: Former Current packs/day: 1.00 Average packs/day: 1 pack/day for 0.4 years (0.4 ttl pk-yrs) Types: Cigarettes Start date: 2024 Smokeless tobacco: Not on file Substance Use Topics Alcohol use: Not Currently Present at visit: patient Marital status: Children: 2 sons Living arrangement: Long-term care has lived in [facility] for the last 2 years. Household safety problems: N/A Driving safety concerns: Does not drive Elder abuse: Community resources: . N/A Healthcare Power of Bone Tender: yes Living Will: unknown Code Status: Full Code Family History Family History[4] No family status information on file. Review of Systems HENT: Positive for hearing loss (states that she doesnt' wear her hearing aid). Cardiovascular: Negative for chest pain. Respiratory: Negative for shortness of breath. Functional Status Prior to Admission (I: Independent, A: Assisted, D: Dependent) ADLs I A D Notes Bathing [] [x] [] Dressing [x] [] [] Toileting [x] [] [] Transfers [x] [] [] Feeding [x] [] [] Ambulation [] [] [] Assistive devices: walker and wheelchair IADLs I A D Telephone [] [] [] Transportation [] [] [x] Shopping [] [x] [] Meal prep [] [x] [] Housework [] [x] [] Medications [] [x] [] Finances [] [x] [] Objective: BP (!) 164/82 Pulse 80 Temp 36.2 C (97.1 F) (Temporal) Resp 18 Ht 5' 5 (1.651 m) Wt 145 lb (65.8 kg) SpO2 95% BMI 24.13 kg/m Physical Exam Constitutional: General: She is not in acute distress. HENT: Right Ear: Decreased hearing noted. Left Ear: Decreased hearing noted. Cardiovascular: Rate and Rhythm: Normal rate. Pulmonary: Effort: Pulmonary effort is normal. No respiratory distress. Abdominal: General: Bowel sounds are normal. Palpations: Abdomen is soft. Musculoskeletal: Right lower leg: No edema. Left lower leg: No edema. Skin: General: Skin is warm and dry. Neurological: Mental Status: She is alert. She is disoriented. Psychiatric: Attention and Perception: Attention normal. Mood and Affect: Mood normal. Speech: Speech normal. Behavior: Behavior is cooperative. Cognition and Memory: Memory is impaired. 3 item recall/short term memory: not assessed Clock Drawing Test: not assessed Labs and Imaging: Lab Results Component Value Date WBC 6.2 01/06/2025 HGB 13.3 01/06/2025 HCT 40.7 01/06/2025 MCV 87.3 01/06/2025 PLT 271 01/06/2025 Lab Results Component Value Date NA 136 01/06/2025 K 3.9 01/06/2025 CL 105 01/06/2025 CO2 23 01/06/2025 BUN 25 (H) 01/06/2025 CREATININE 1.02 01/06/2025 GLUCOSE 108 01/06/2025 CALCIUM 9.0 01/06/2025 PROT 6.9 01/06/2025 BILITOT 0.6 01/06/2025 ALKPHOS 70 01/06/2025 AST 31 01/06/2025 ALT 24 01/06/2025 Lab Results Component Value Date TSH 2.81 01/06/2025 UA: Lab Results Component Value Date COLORU Yellow 01/06/2025 GLUCOSEU Normal 01/06/2025 UROBILINOGEN Normal 01/06/2025 Susceptibility data from last 90 days. Collected Specimen Info Organism Amoxicillin + Clavulanate Ampicillin ( g/mL) Ampicillin/Sulbactam ( g/mL) Aztreonam ( g/mL) Cefazolin ( g/mL) Cefepime ( g/mL) Ceftriaxone ( g/mL) Ciprofloxacin ( g/mL) 10/17/24 Urine, Clean Catch Proteus mirabilis S S S S I S S S Collected Specimen Info Organism Ertapenem Gentamicin ( g/mL) Meropenem ( g/mL) Nitrofurantoin (ug/mL) Pipercillin + Tazobactam ( g/mL) Trimethoprim/Sulfa-Methoxazole ( g/mL) 10/17/24 Urine, Clean Catch Proteus mirabilis S S S R S S Pain Management Panel No data to display === 01/05/25 === CT ABDOMEN PELVIS W CONTRAST - Impression - 1. 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 2. Fatty liver 3. Sigmoid diverticulosis Report Dictated on Electronically Signed By: Dion Valenzuela MD Electronically Signed Date/Time: 01/06/2025 3:00 AM EDT No results found for this or any previous visit from the past 365 days. === 10/29/24 === XR CHEST 2 VIEWS - Impression - Mild atelectasis in left lung base. Report Dictated on Electronically Signed By: Jt Munson MD Electronically Signed Date/Time: 10/29/2024 10:55 AM EDT === 11/22/23 === MR BRAIN W AND WO CONTRAST - Impression - Patchy and confluent areas of hyperintense signal on T2-weighted and FLAIR images is nonspecific but likely represent moderate chronic microvascular ischemia. Report Dictated on Electronically Signed By: Jt Munson MD Electronically Signed Date/Time: 11/27/2023 8:37 AM EDT Comment: Please note that portions of this report were produced using speech recognition software and may contain errors related to that system including errors in grammar, punctuation, and spelling, as well as words and phrases that may be inappropriate. If there are any questions or concerns please feel free to contact the dictating provider for clarification. [1] Allergies Allergen Reactions Doxycycline Other Reaction(s): Not available Gabapentin Propoxyphene [2] Past Medical History: Diagnosis Date Afib (CMS/HCC) (HCC) Anxiety CHF (congestive heart failure) (HCC) COPD (chronic obstructive pulmonary disease) (HCC) Dementia (HCC) Depression Hyperlipidemia Hypertension Hypothyroid Insomnia Pulmonary HTN (HCC) [3] History reviewed. No pertinent surgical history. [4] No family history on file. documented in this encounter [facility] 01-06-2025 History and physical note Attending History and Physical Admit Date: 01/05/2025 PCP: Kathi Juarez MD CHIEF COMPLAINT: concern for agitation vs abd pain Reason for Admission: History Obtained From: ER note, transfer from [facility] ER HISTORY OF PRESENT ILLNESS: Sommer is a 84 y.o. female with past medical history below who presents with chief complaint listed above. Pt was brought by EMS From [facility] after staff reporting that she was screaming in pain. Pt continuously denied abd pain to EMS AND ER. CT ABD showed constipation with severe atherosclerotic lesions, normal LA. WHEN I saw the patient she denied any abd pain, not a good historian. Says she was screaming and asking to get her memory back and everyone thought Clemencia was crazy, 'Denies chest pain, sob, abdominal pain, nausea, vomiting, diarrhea, constipation, fevers, or chills. Will admit for further evaluation and management. Past Medical History: Medical History[1] Past Surgical History: Surgical History[2] Social History: Social History Socioeconomic History Marital status: Spouse name: Not on file Number of children: Not on file Years of education: Not on file Highest education level: Not on file Occupational History Not on file Tobacco Use Smoking status: Former Current packs/day: 1.00 Average packs/day: 1 pack/day for 0.4 years (0.4 ttl pk-yrs) Types: Cigarettes Start date: 2024 Smokeless tobacco: Not on file Vaping Use Vaping status: Unknown Substance and Sexual Activity Alcohol use: Not Currently Drug use: Not Currently Sexual activity: Not on file Other Topics Concern Not on file Social History Narrative Not on file Social Drivers of Health Financial Resource Strain: Not on file Food Insecurity: Not on file Transportation Needs: Not on file Physical Activity: Not on file Stress: Not on file Social Connections: Not on file Intimate Partner Violence: Not At Risk (10/30/2024) Humiliation, Afraid, Rape, and Kick questionnaire Fear of Current or Ex-Partner: No Emotionally Abused: No Physically Abused: No Sexually Abused: No Housing Stability: Not on file Family History: Family History[3] Medications Prior to Admission: Prescriptions Prior to Admission[4] Allergies: Allergies[5] Vitals: BP (!) 164/82 Pulse 80 Temp 36.2 C (97.1 F) (Temporal) Resp 18 Ht 5' 5 (1.651 m) Wt 145 lb (65.8 kg) SpO2 95% BMI 24.13 kg/m BMI Classification: Pulse Ox: SpO2 Av % Min: 95 % Max: 99 % Supplemental O2: PHYSICAL EXAM: General appearance: No apparent distress, appears stated age and cooperative with exam. Oriented to person only Neck: Supple, with full range of motion. No jugular venous distention. Trachea midline. No lymphadenopathy. Respiratory: Normal respiratory effort. Clear to auscultation, bilaterally without Rales/Wheezes/Rhonchi. Cardiovascular: Regular rate and rhythm with normal S1/S2 without murmurs, rubs or gallops. Abdomen: Soft, non-tender, non-distended with normal bowel sounds. No rebound or guarding. DATA: CBC: Recent Labs 01/06/25 0016 WBC 6.2 RBC 4.66 HGB 13.3 HCT 40.7 MCV 87.3 RDW 15.7* PLT 271 BMP: Recent Labs 01/06/25 0016 NA 136 K 3.9 CL 105 CO2 23 BUN 25* CREATININE 1.02 GLUCOSE 108 CALCIUM 9.0 ANIONGAP 8 LIVER PROFILE: Recent Labs 01/06/25 0016 AST 31 ALT 24 BILITOT 0.6 ALKPHOS 70 PROT 6.9 PT/INR: No results for input(s): PROTIME, INR in the last 72 hours. CARDIAC ENZYMES: No results for input(s): TROPONINI in the last 72 hours. Procalcitonin: No results found for: PROCAL Urine Culture: Results for orders placed or performed during the hospital encounter of 10/17/24 Urine culture Collection Time: 10/17/24 11:49 AM Specimen: Urine, Clean Catch Result Value Ref Range Urine Culture >100,000 CFU/mL Proteus mirabilis (A) Susceptibility Proteus mirabilis - BROTH MICRODILUTION Amoxicillin / Clavulanate <=2 Susceptible ug/ml Ampicillin <=2 Susceptible ug/ml Ampicillin / Sulbactam <=2 Susceptible ug/ml Aztreonam <=1 Susceptible ug/ml Cefazolin 4 Intermediate ug/ml Cefepime <=0.12 Susceptible ug/ml Ceftriaxone <=0.25 Susceptible ug/ml Ciprofloxacin <=0.06 Susceptible ug/ml Ertapenem <=0.12 Susceptible ug/ml Gentamicin <=1 Susceptible ug/ml Meropenem <=0.25 Susceptible ug/ml Nitrofurantoin 128 Resistant ug/ml Piperacillin / Tazobactam <=4 Susceptible ug/ml Trimethoprim / Sulfamethoxazole <=20 Susceptible ug/ml COVID-19 PCR: No results for input(s): COVID19 in the last 72 hours. I reviewed: [x] laboratory results [x] radiographic results At the time of today's encounter. Pt was advised of the results. IMPRESSION: Severe dementia and possible agitaion- currently calm ?uti- difficult to assess urinary sym Constipation H/o afib- on eliquis H/o hypothyroidism Dense atherosclerotic calcification with diminutive caliber of the distal aorta measuring as little as 0.8 cm. There is patent flow within the diminutive left iliac artery branches extending to the common femoral artery. There is absent flow within the right common iliac artery with reconstitution near the iliac bifurcation. - LA wnl, abd benign, will monitor PLAN: - consult geriatrics, delirium precautions - tsh, synthroid - rocephin, urine cultures - senna and miralax -PT/OT eval/increase activity -am labs, replace lytes prn -vitals per routine -home meds as ordered -DVT prophylaxis: [] Lovenox [] Heparin [] SCDs [x] Encourage ambulation [] Already on Anticoagulation -see below for additional orders, further recommendations to follow Orders Placed This Encounter Procedures Urine culture Urine culture CT abdomen pelvis w contrast CBC auto differential Comprehensive metabolic panel Lipase Urinalysis Complete with reflex to Culture Lactic acid with reflex Man Differential CBC auto differential Comprehensive Metabolic Panel w/ Mg Reflex Urine Hold Cup Adult diet Regular Vital Signs Straight cath if unable to void Vital Signs Notify patient's primary care provider of admission Activity No Restrictions Full code Inpatient consult to Geriatric Medicine--[facility]; severe dementia with concern for agitation OT eval and treat PT eval and treat Initiate Oxygen Therapy Protocol Initiate observation status Admit to inpatient Code status: Full Code Please forward a copy of this H&P to the patient's PCP. Thank you. Electronically signed by Vesta Amaya MD 01/06/2025 10:39 AM [1] Past Medical History: Diagnosis Date Afib (CMS/HCC) (HCC) Anxiety CHF (congestive heart failure) (HCC) COPD (chronic obstructive pulmonary disease) (HCC) Dementia (HCC) Depression Hyperlipidemia Hypertension Hypothyroid Insomnia Pulmonary HTN (HCC) [2] History reviewed. No pertinent surgical history. [3] No family history on file. [4] Medications Prior to Admission Medication Sig Dispense Refill Last Dose/Taking apixaban (Eliquis) 2.5 MG tablet Take 2.5 mg by mouth 2 times daily. biotin 5 MG capsule Take 5 mg by mouth daily. busPIRone (Buspar) 5 MG tablet 5 mg oral nightly for one week then increase to 10 mg oral nightly 30 tablet 0 calcium carbonate (Tums) 500 MG chewable tablet Chew 500 mg as needed for indigestion or heartburn. carboxymethylcellulose (Refresh Plus) 0.5 % ophthalmic solution Administer 2 drops into both eyes in the morning and 2 drops in the evening. donepezil (Aricept) 10 MG tablet Take 10 mg by mouth Nightly. escitalopram (Lexapro) 10 MG tablet Take 15 mg by mouth daily. Fluticasone-Salmeterol (Advair Diskus) 500-50 MCG/ACT aerosol powder Inhale 1 puff in the morning and 1 puff in the evening. furosemide (Lasix) 40 MG tablet Take 1 tablet (40 mg) by mouth daily. 30 tablet 0 levothyroxine (Tirosint) 88 MCG capsule Take 88 mcg by mouth every morning (before breakfast). Melatonin 3 MG tablet dispersible Take 9 mg by mouth Nightly. metoprolol tartrate (Lopressor) 25 MG tablet Take 1 tablet (25 mg) by mouth 3 times daily. (Patient taking differently: Take 25 mg by mouth 2 times daily.) 90 tablet 1 polyethylene glycol, PEG, 3350 (Miralax) 17 g packet Take 17 g by mouth daily. traZODone (Desyrel) 50 MG tablet Take 25 mg by mouth Nightly. [5] Allergies Allergen Reactions Doxycycline Other Reaction(s): Not available Gabapentin Propoxyphene [facility] 01-06-2025 Note [facility] 01-06-2025 History and physical note Attending History and Physical Admit Date: 01/05/2025 PCP: Kathi Juarez MD CHIEF COMPLAINT: concern for agitation vs abd pain Reason for Admission: History Obtained From: ER note, transfer from [facility] ER HISTORY OF PRESENT ILLNESS: Sommer is a 84 y.o. female with past medical history below who presents with chief complaint listed above. Pt was brought by EMS From [facility] after staff reporting that she was screaming in pain. Pt continuously denied abd pain to EMS AND ER. CT ABD showed constipation with severe atherosclerotic lesions, normal LA. WHEN I saw the patient she denied any abd pain, not a good historian. Says she was screaming and asking to get her memory back and everyone thought Clemencia was crazy, 'Denies chest pain, sob, abdominal pain, nausea, vomiting, diarrhea, constipation, fevers, or chills. Will admit for further evaluation and management. Past Medical History: Medical History[1] Past Surgical History: Surgical History[2] Social History: Social History Socioeconomic History Marital status: Spouse name: Not on file Number of children: Not on file Years of education: Not on file Highest education level: Not on file Occupational History Not on file Tobacco Use Smoking status: Former Current packs/day: 1.00 Average packs/day: 1 pack/day for 0.4 years (0.4 ttl pk-yrs) Types: Cigarettes Start date: 2024 Smokeless tobacco: Not on file Vaping Use Vaping status: Unknown Substance and Sexual Activity Alcohol use: Not Currently Drug use: Not Currently Sexual activity: Not on file Other Topics Concern Not on file Social History Narrative Not on file Social Drivers of Health Financial Resource Strain: Not on file Food Insecurity: Not on file Transportation Needs: Not on file Physical Activity: Not on file Stress: Not on file Social Connections: Not on file Intimate Partner Violence: Not At Risk (10/30/2024) Humiliation, Afraid, Rape, and Kick questionnaire Fear of Current or Ex-Partner: No Emotionally Abused: No Physically Abused: No Sexually Abused: No Housing Stability: Not on file Family History: Family History[3] Medications Prior to Admission: Prescriptions Prior to Admission[4] Allergies: Allergies[5] Vitals: BP (!) 164/82 Pulse 80 Temp 36.2 C (97.1 F) (Temporal) Resp 18 Ht 5' 5 (1.651 m) Wt 145 lb (65.8 kg) SpO2 95% BMI 24.13 kg/m BMI Classification: Pulse Ox: SpO2 Av % Min: 95 % Max: 99 % Supplemental O2: PHYSICAL EXAM: General appearance: No apparent distress, appears stated age and cooperative with exam. Oriented to person only Neck: Supple, with full range of motion. No jugular venous distention. Trachea midline. No lymphadenopathy. Respiratory: Normal respiratory effort. Clear to auscultation, bilaterally without Rales/Wheezes/Rhonchi. Cardiovascular: Regular rate and rhythm with normal S1/S2 without murmurs, rubs or gallops. Abdomen: Soft, non-tender, non-distended with normal bowel sounds. No rebound or guarding. DATA: CBC: Recent Labs 01/06/25 0016 WBC 6.2 RBC 4.66 HGB 13.3 HCT 40.7 MCV 87.3 RDW 15.7* PLT 271 BMP: Recent Labs 01/06/25 0016 NA 136 K 3.9 CL 105 CO2 23 BUN 25* CREATININE 1.02 GLUCOSE 108 CALCIUM 9.0 ANIONGAP 8 LIVER PROFILE: Recent Labs 01/06/25 0016 AST 31 ALT 24 BILITOT 0.6 ALKPHOS 70 PROT 6.9 PT/INR: No results for input(s): PROTIME, INR in the last 72 hours. CARDIAC ENZYMES: No results for input(s): TROPONINI in the last 72 hours. Procalcitonin: No results found for: PROCAL Urine Culture: Results for orders placed or performed during the hospital encounter of 10/17/24 Urine culture Collection Time: 10/17/24 11:49 AM Specimen: Urine, Clean Catch Result Value Ref Range Urine Culture >100,000 CFU/mL Proteus mirabilis (A) Susceptibility Proteus mirabilis - BROTH MICRODILUTION Amoxicillin / Clavulanate <=2 Susceptible ug/ml Ampicillin <=2 Susceptible ug/ml Ampicillin / Sulbactam <=2 Susceptible ug/ml Aztreonam <=1 Susceptible ug/ml Cefazolin 4 Intermediate ug/ml Cefepime <=0.12 Susceptible ug/ml Ceftriaxone <=0.25 Susceptible ug/ml Ciprofloxacin <=0.06 Susceptible ug/ml Ertapenem <=0.12 Susceptible ug/ml Gentamicin <=1 Susceptible ug/ml Meropenem <=0.25 Susceptible ug/ml Nitrofurantoin 128 Resistant ug/ml Piperacillin / Tazobactam <=4 Susceptible ug/ml Trimethoprim / Sulfamethoxazole <=20 Susceptible ug/ml COVID-19 PCR: No results for input(s): COVID19 in the last 72 hours. I reviewed: [x] laboratory results [x] radiographic results At the time of today's encounter. Pt was advised of the results. IMPRESSION: Severe dementia and possible agitaion- currently calm ?uti- difficult to assess urinary sym Constipation H/o afib- on eliquis H/o hypothyroidism Dense atherosclerotic calcification with diminutive caliber of the distal aorta measuring as little as 0.8 cm. There is patent flow within the diminutive left iliac artery branches extending to the common femoral artery. There is absent flow within the right common iliac artery with reconstitution near the iliac bifurcation. - LA wnl, abd benign, will monitor PLAN: - consult geriatrics, delirium precautions - tsh, synthroid - rocephin, urine cultures - senna and miralax -PT/OT eval/increase activity -am labs, replace lytes prn -vitals per routine -home meds as ordered -DVT prophylaxis: [] Lovenox [] Heparin [] SCDs [x] Encourage ambulation [] Already on Anticoagulation -see below for additional orders, further recommendations to follow Orders Placed This Encounter Procedures Urine culture Urine culture CT abdomen pelvis w contrast CBC auto differential Comprehensive metabolic panel Lipase Urinalysis Complete with reflex to Culture Lactic acid with reflex Man Differential CBC auto differential Comprehensive Metabolic Panel w/ Mg Reflex Urine Hold Cup Adult diet Regular Vital Signs Straight cath if unable to void Vital Signs Notify patient's primary care provider of admission Activity No Restrictions Full code Inpatient consult to Geriatric Medicine--[facility]; severe dementia with concern for agitation OT eval and treat PT eval and treat Initiate Oxygen Therapy Protocol Initiate observation status Admit to inpatient Code status: Full Code Please forward a copy of this H&P to the patient's PCP. Thank you. Electronically signed by Vesta Amaya MD 01/06/2025 10:39 AM [1] Past Medical History: Diagnosis Date Afib ([facility]/HCC) (HCC) Anxiety CHF (congestive heart failure) (HCC) COPD (chronic obstructive pulmonary disease) (HCC) Dementia (HCC) Depression Hyperlipidemia Hypertension Hypothyroid Insomnia Pulmonary HTN (HCC) [2] History reviewed. No pertinent surgical history. [3] No family history on file. [4] Medications Prior to Admission Medication Sig Dispense Refill Last Dose/Taking apixaban (Eliquis) 2.5 MG tablet Take 2.5 mg by mouth 2 times daily. biotin 5 MG capsule Take 5 mg by mouth daily. busPIRone (Buspar) 5 MG tablet 5 mg oral nightly for one week then increase to 10 mg oral nightly 30 tablet 0 calcium carbonate (Tums) 500 MG chewable tablet Chew 500 mg as needed for indigestion or heartburn. carboxymethylcellulose (Refresh Plus) 0.5 % ophthalmic solution Administer 2 drops into both eyes in the morning and 2 drops in the evening. donepezil (Aricept) 10 MG tablet Take 10 mg by mouth Nightly. escitalopram (Lexapro) 10 MG tablet Take 15 mg by mouth daily. Fluticasone-Salmeterol (Advair Diskus) 500-50 MCG/ACT aerosol powder Inhale 1 puff in the morning and 1 puff in the evening. furosemide (Lasix) 40 MG tablet Take 1 tablet (40 mg) by mouth daily. 30 tablet 0 levothyroxine (Tirosint) 88 MCG capsule Take 88 mcg by mouth every morning (before breakfast). Melatonin 3 MG tablet dispersible Take 9 mg by mouth Nightly. metoprolol tartrate (Lopressor) 25 MG tablet Take 1 tablet (25 mg) by mouth 3 times daily. (Patient taking differently: Take 25 mg by mouth 2 times daily.) 90 tablet 1 polyethylene glycol, PEG, 3350 (Miralax) 17 g packet Take 17 g by mouth daily. traZODone (Desyrel) 50 MG tablet Take 25 mg by mouth Nightly. [5] Allergies Allergen Reactions Doxycycline Other Reaction(s): Not available Gabapentin Propoxyphene documented in this encounter [facility] 01-06-2025 Emergency department Note Report called to BETTY Banda RN [facility] 01-06-2025 Emergency department Note Report called to BETTY Banda RN EMERGENCY DEPARTMENT ENCOUNTER Pt Name: Sommer Friedman Birthdate 1940 Date of evaluation: 01/05/2025 ED Provider: Luana Trinidad DO CHIEF COMPLAINT Chief Complaint Patient presents with Constipation Per patient she has no complaints. Per EMS she is constipated per nursing facility HISTORY OF PRESENT ILLNESS (Location/Symptom, Timing/Onset, Context/Setting, Quality, Duration, Modifying Factors, Severity) Note limiting factors. I wore appropriate PPE for the entirety of this encounter. HPI Sommer Friedman is a 84 y.o. female medical history of dementia, CHF, atrial fibrillation on Eliquis who presents to the emergency department from [facility] for abdominal pain. Per transporting EMS, they were called because patient was screaming out in pain. When they arrived on scene, patient seated on toilet with constipation. Denying abdominal pain to the transporting EMS and throughout transport. On arrival, patient pleasantly demented. Denies abdominal pain. Does not know why she is here. Limited HPI secondary to patient dementia. Nursing Notes were reviewed. Limitations to history: Altered mental status/confusion Outside historians: EMS REVIEW OF SYSTEMS Review of Systems Negative except per HPI PAST MEDICAL HISTORY Medical History[1] SURGICAL HISTORY Surgical History[2] CURRENT MEDICATIONS Current Discharge Medication List CONTINUE these medications which have NOT CHANGED Details apixaban (Eliquis) 2.5 MG tablet Take 2.5 mg by mouth 2 times daily. biotin 5 MG capsule Take 5 mg by mouth daily. !! busPIRone (Buspar) 5 MG tablet 5 mg oral nightly for one week then increase to 10 mg oral nightly Qty: 30 tablet, Refills: 0 !! busPIRone (Buspar) 5 MG tablet Take by mouth 2 times daily. calcium carbonate (Tums) 500 MG chewable tablet Chew 500 mg as needed for indigestion or heartburn. carboxymethylcellulose (Refresh Plus) 0.5 % ophthalmic solution Administer 2 drops into both eyes in the morning and 2 drops in the evening. donepezil (Aricept) 10 MG tablet Take 10 mg by mouth Nightly. escitalopram (Lexapro) 10 MG tablet Take 15 mg by mouth daily. Fluticasone-Salmeterol (Advair Diskus) 500-50 MCG/ACT aerosol powder Inhale 1 puff in the morning and 1 puff in the evening. !! furosemide (Lasix) 20 MG tablet Take by mouth. !! furosemide (Lasix) 40 MG tablet Take by mouth. Hydrocortisone 2 % lotion Apply topically. levothyroxine (Tirosint) 88 MCG capsule Take 88 mcg by mouth every morning (before breakfast). Melatonin 3 MG tablet dispersible Take 9 mg by mouth Nightly. metoprolol tartrate (Lopressor) 50 MG tablet Take by mouth. mupirocin (Bactroban) 2 % ointment Apply topically three times daily. polyethylene glycol, PEG, 3350 (Miralax) 17 g packet Take 17 g by mouth daily. potassium chloride CR (Klor-Con M10) 10 MEQ ER tablet Take 10 mEq by mouth daily. Do not crush or chew. spironolactone (Aldactone) 25 MG tablet Take by mouth daily. traZODone (Desyrel) 50 MG tablet Take 25 mg by mouth Nightly. !! - Potential duplicate medications found. Please discuss with provider. ALLERGIES Doxycycline, Gabapentin, and Propoxyphene FAMILY HISTORY Family History[3] SOCIAL HISTORY Social History[4] SCREENINGS PHYSICAL EXAM ED Triage Vitals Temp Pulse Resp BP -- -- -- -- SpO2 Temp src Heart Rate Source Patient Position -- -- -- -- BP Location FiO2 (%) -- -- Physical Exam BP 156/84 (BP Location: Right arm, Patient Position: Lying) Pulse 77 Temp 36.3 C (97.4 F) (Temporal) Resp 16 Ht 1.651 m (5' 5) Wt 65.8 kg (145 lb) SpO2 95% BMI 24.13 kg/m Gen: Nontoxic appearing CV: RRR, no murmurs Pulm: CTA BL Abdomen: Distended, soft but diffuse tenderness, hyperactive bowel sounds, no rigidity/rebound/guarding Lower Extremity Exam: Scabs noted left anterior tibia without surrounding cellulitis. Moving all extremities spontaneously. No calf tenderness to palpation. Bilateral DP pulses 1+ bilaterally DIAGNOSTIC RESULTS RADIOLOGY (Per Emergency Physician): CT abdomen/pelvis Significant atherosclerotic disease with collateral reconstitution Interpretation per the Radiologist below, if available at the time of this note: CT abdomen pelvis w contrast Final Result 1. 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 2. Fatty liver 3. Sigmoid diverticulosis Report Dictated on Electronically Signed By: Dion Valenzuela MD Electronically Signed Date/Time: 01/06/2025 3:00 AM EDT LABS: Labs Reviewed CBC WITH AUTO DIFFERENTIAL - Abnormal Result Value Auto WBC 6.2 RBC 4.66 Hemoglobin 13.3 Hematocrit 40.7 MCV 87.3 MCH 28.5 MCHC 32.7 RDW 15.7 (*) Platelets 271 MPV 9.2 nRBC 0.0 COMPREHENSIVE METABOLIC PANEL - Abnormal SODIUM 136 POTASSIUM 3.9 CHLORIDE 105 CARBON DIOXIDE 23 ANION GAP 8 UREA NITROGEN 25 (*) CREATININE 1.02 GLUCOSE 108 CALCIUM 9.0 AST (SGOT) 31 ALT 24 ALKALINE PHOSPHATASE 70 ALBUMIN 3.3 (*) BILIRUBIN, TOTAL 0.6 TOTAL PROTEIN 6.9 eGFR 55.0 (*) LIPASE - Abnormal LIPASE 112 (*) COMPLETE URINALYSIS WITH REFLEX TO CULTURE - Abnormal Color, Urine Yellow Clarity, Urine Clear pH, Urine 7.0 Leukocytes, Urine 75 (*) Nitrite, Urine Negative Protein, Urine Negative Glucose, Urine Normal Bilirubin, Urine Negative Ketones, Urine Negative Urobilinogen, Urine Normal Blood, Urine 0.06 (*) Volume, Urine 12 mL RBC, Urine 0-2 WBC, Urine 3-5 Squamous Epithelial, Urine 3-5 Bacteria, Urine Moderate (*) Mucus, Urine Negative Amorphous Phosphates, Urine Few (*) SPECIFIC GRAVITY OF URINE (NUMERIC) 1.013 Narrative: A specimen with <=10 WBC is not consistent with inflammation. This specimen will not reflex to a urine culture. MANUAL DIFFERENTIAL - Abnormal Adjusted WBC 6.2 Neutrophils % 43 Lymphocytes % 45 Atypical Lymphocytes % 2 (*) Monocytes % 9 Eosinophils % 1 Absolute Neutrophil Count 2.7 Lymphocytes Absolute 2.8 Atypical Lymphs Absolute 0.1 (*) Monocytes Absolute 0.6 Eosinophils Absolute 0.1 Anisocytosis Slight (*) Toxic Granulation Present (*) Giant PLTs Slight (*) Total Counted 100 Neutrophils Manual 43 Lymphocytes Manual 45 Monocytes Manual 9 Eosinophils Manual 1 Atypical Lymphocytes Manual 2 LACTIC ACID WITH REFLEX - Normal LACTIC ACID 0.9 THYROID STIMULATING HORMONE - Normal THYROID STIMULATING HORMONE 2.81 URINE CULTURE, ORDERABLE Narrative: The following orders were created for panel order Urine culture. Procedure Abnormality Status --------- ------ Urine culture[[id number]] In process Urine Hold Cup[[id number]] Please view results for these tests on the individual orders. URINE CULTURE URINE HOLD CUP CBC WITH AUTO DIFFERENTIAL COMPREHENSIVE METABOLIC PANEL WITH MG REFLEX Narrative: The following orders were created for panel order Comprehensive Metabolic Panel w/ Mg Reflex. Procedure Abnormality Status --------- ------ Comprehensive metabolic ...[[id number]] Please view results for these tests on the individual orders. COMPREHENSIVE METABOLIC PANEL All other labs were within normal range or not returned as of this dictation. EMERGENCY DEPARTMENT COURSE and DIFFERENTIAL DIAGNOSIS/MDM: Vitals: Vitals: 01/06/25 0650 01/06/25 0809 01/06/25 0900 01/06/25 2032 BP: (!) 153/88 (!) 156/98 (!) 164/82 156/84 BP Location: Left arm Right arm Patient Position: Sitting Lying Pulse: 89 91 80 77 Resp: 17 18 18 16 Temp: 36.2 C (97.1 F) 36.3 C (97.4 F) TempSrc: Temporal Temporal SpO2: 97% 99% 95% 95% Weight: Height: 84 y.o. female medical history of dementia, CHF, atrial fibrillation on Eliquis who presents to the emergency department from [facility] for abdominal pain. Per transporting EMS, they were called because patient was screaming out in pain. When they arrived on scene, patient seated on toilet with constipation. Denying abdominal pain to the transporting EMS and throughout transport. On arrival, patient pleasantly demented. Denies abdominal pain. Does not know why she is here. Limited HPI secondary to patient dementia. On exam, patient noted to have abdominal distention with hyperactive bowel sounds. Diffuse tenderness to palpation, predominantly epigastric abdomen. Considered bowel obstruction, ileus, pneumoperitoneum, diverticulitis, constipation, fecal impaction. Small dose IV morphine ordered. Abdominal labs including lactic acid and CT imaging of abdomen ordered to evaluate symptomology. Labs with elevated lipase and UTI CT abdomen/pelvis with atherosclerotic disease with collateral reconstitution of occlusions. While patient without imaging findings of pancreatitis on CT, given elevated lipase and epigastric tenderness to palpation in severely demented patient, concern for acute pancreatitis. Given 1 L IV fluids and antiemetic. Given IV Rocephin for UTI. CT imaging additionally with significant atherosclerotic disease. Doubt mesenteric ischemia given normal lactic acid and patient on Eliquis for atrial fibrillation. 1+ symmetric DP pulses bilateral feet and patient without endorsed leg pain. Patient admitted medically to [facility] service for continued management. ED Medications managed: Medications morphine injection 2 mg (2 mg IntraVENous Not Given 01/06/25206) donepezil (Aricept) tablet 10 mg (10 mg Oral Given 01/06/252234) escitalopram (Lexapro) tablet 15 mg (15 mg Oral Given 01/06/251215) metoprolol tartrate (Lopressor) tablet 25 mg (25 mg Oral Given 01/06/252234) acetaminophen (Tylenol) tablet 650 mg (650 mg Oral Given 01/06/251533) Or acetaminophen (Tylenol) suppository 650 mg ( Rectal See Alternative 01/06/251533) ondansetron ODT (Zofran-ODT) disintegrating tablet 4 mg (has no administration in time range) Or ondansetron (Zofran) injection 4 mg (has no administration in time range) polyethylene glycol (PEG) 3350 (Miralax) packet 17 g (has no administration in time range) cefTRIAXone (Rocephin) 1,000 mg in sodium chloride 0.9 % 50 mL IVPB Mini-Bag Plus (has no administration in time range) senna-docusate sodium (Senokot-S) 8.6-50 MG tablet 2 tablet (2 tablets Oral Given 01/06/251215) apixaban (Eliquis) tablet 5 mg (5 mg Oral Given 01/06/252234) levothyroxine (Synthroid, Levoxyl) tablet 88 mcg (has no administration in time range) Petrolatum ointment (has no administration in time range) sodium chloride 0.9 % bolus 1,000 mL (0 mL IntraVENous Stopped 01/06/25419) ondansetron (Zofran) injection 4 mg (4 mg IntraVENous Given 01/06/258) iopamidol (Isovue-370) 76 % injection 75 mL (75 mL IntraVENous Given 01/06/25216) cefTRIAXone (Rocephin) 1,000 mg in sodium chloride 0.9 % 50 mL IVPB Mini-Bag Plus (0 mg IntraVENous Stopped 01/06/25419) PROCEDURES: Unless otherwise noted below, none Procedures FINAL IMPRESSION 1. Acute pancreatitis, unspecified complication status, unspecified pancreatitis type DISPOSITION Observation 01/06/2025 03:32:58 AM PATIENT REFERRED TO: No follow-up provider specified. DISCHARGE MEDICATIONS: Current Discharge Medication List (Comment: Please note this report has been produced using speech recognition software and may contain errors related to that system including errors in grammar, punctuation, and spelling, as well as words and phrases that may be inappropriate. If there are any questions or concerns please feel free to contact the dictating provider for clarification.) Luana Trinidad DO (electronically signed) Emergency Medicine Provider [1] Past Medical History: Diagnosis Date Afib (CMS/HCC) (HCC) Anxiety CHF (congestive heart failure) (HCC) COPD (chronic obstructive pulmonary disease) (HCC) Dementia (HCC) Depression Hyperlipidemia Hypertension Hypothyroid Insomnia Pulmonary HTN (HCC) [2] History reviewed. No pertinent surgical history. [3] No family history on file. [4] Social History Socioeconomic History Marital status: Tobacco Use Smoking status: Former Current packs/day: 1.00 Average packs/day: 1 pack/day for 0.4 years (0.4 ttl pk-yrs) Types: Cigarettes Start date: 2024 Vaping Use Vaping status: Unknown Substance and Sexual Activity Alcohol use: Not Currently Drug use: Not Currently Social Drivers of Health Transportation Needs: No Transportation Needs (01/06/2025) PRAPARE - Transportation Lack of Transportation (Medical): No Lack of Transportation (Non-Medical): No Intimate Partner Violence: Not At Risk (01/06/2025) Humiliation, Afraid, Rape, and Kick questionnaire Fear of Current or Ex-Partner: No Emotionally Abused: No Physically Abused: No Sexually Abused: No Housing Stability: Low Risk (01/06/2025) Housing Stability Vital Sign Unable to Pay for Housing in the Last Year: No Number of Times Moved in the Last Year: 0 Homeless in the Last Year: No Luana Trinidad DO 01/07/25 0048 The patient came in via ambulance. Per ems the nursing facility stated that the patient was screaming in pain and is complaining of constipation. When squad arrived the patient denies any pain or discomfort. The patient stated to this nurse she does not know why she is here. Patient is oriented to self. documented in this encounter [facility] 01-05-2025 Emergency department Triage note The patient came in via ambulance. Per ems the nursing facility stated that the patient was screaming in pain and is complaining of constipation. When squad arrived the patient denies any pain or discomfort. The patient stated to this nurse she does not know why she is here. Patient is oriented to self. [facility] 01-05-2025 Physician Emergency department Note EMERGENCY DEPARTMENT ENCOUNTER Pt Name: Sommer Friedman Birthdate 1940 Date of evaluation: 01/05/2025 ED Provider: Luana Trinidad DO CHIEF COMPLAINT Chief Complaint Patient presents with Constipation Per patient she has no complaints. Per EMS she is constipated per nursing facility HISTORY OF PRESENT ILLNESS (Location/Symptom, Timing/Onset, Context/Setting, Quality, Duration, Modifying Factors, Severity) Note limiting factors. I wore appropriate PPE for the entirety of this encounter. HPI Sommer Friedman is a 84 y.o. female medical history of dementia, CHF, atrial fibrillation on Eliquis who presents to the emergency department from [facility] for abdominal pain. Per transporting EMS, they were called because patient was screaming out in pain. When they arrived on scene, patient seated on toilet with constipation. Denying abdominal pain to the transporting EMS and throughout transport. On arrival, patient pleasantly demented. Denies abdominal pain. Does not know why she is here. Limited HPI secondary to patient dementia. Nursing Notes were reviewed. Limitations to history: Altered mental status/confusion Outside historians: EMS REVIEW OF SYSTEMS Review of Systems Negative except per HPI PAST MEDICAL HISTORY Medical History[1] SURGICAL HISTORY Surgical History[2] CURRENT MEDICATIONS Current Discharge Medication List CONTINUE these medications which have NOT CHANGED Details apixaban (Eliquis) 2.5 MG tablet Take 2.5 mg by mouth 2 times daily. biotin 5 MG capsule Take 5 mg by mouth daily. !! busPIRone (Buspar) 5 MG tablet 5 mg oral nightly for one week then increase to 10 mg oral nightly Qty: 30 tablet, Refills: 0 !! busPIRone (Buspar) 5 MG tablet Take by mouth 2 times daily. calcium carbonate (Tums) 500 MG chewable tablet Chew 500 mg as needed for indigestion or heartburn. carboxymethylcellulose (Refresh Plus) 0.5 % ophthalmic solution Administer 2 drops into both eyes in the morning and 2 drops in the evening. donepezil (Aricept) 10 MG tablet Take 10 mg by mouth Nightly. escitalopram (Lexapro) 10 MG tablet Take 15 mg by mouth daily. Fluticasone-Salmeterol (Advair Diskus) 500-50 MCG/ACT aerosol powder Inhale 1 puff in the morning and 1 puff in the evening. !! furosemide (Lasix) 20 MG tablet Take by mouth. !! furosemide (Lasix) 40 MG tablet Take by mouth. Hydrocortisone 2 % lotion Apply topically. levothyroxine (Tirosint) 88 MCG capsule Take 88 mcg by mouth every morning (before breakfast). Melatonin 3 MG tablet dispersible Take 9 mg by mouth Nightly. metoprolol tartrate (Lopressor) 50 MG tablet Take by mouth. mupirocin (Bactroban) 2 % ointment Apply topically three times daily. polyethylene glycol, PEG, 3350 (Miralax) 17 g packet Take 17 g by mouth daily. potassium chloride CR (Klor-Con M10) 10 MEQ ER tablet Take 10 mEq by mouth daily. Do not crush or chew. spironolactone (Aldactone) 25 MG tablet Take by mouth daily. traZODone (Desyrel) 50 MG tablet Take 25 mg by mouth Nightly. !! - Potential duplicate medications found. Please discuss with provider. ALLERGIES Doxycycline, Gabapentin, and Propoxyphene FAMILY HISTORY Family History[3] SOCIAL HISTORY Social History[4] SCREENINGS PHYSICAL EXAM ED Triage Vitals Temp Pulse Resp BP -- -- -- -- SpO2 Temp src Heart Rate Source Patient Position -- -- -- -- BP Location FiO2 (%) -- -- Physical Exam BP 156/84 (BP Location: Right arm, Patient Position: Lying) Pulse 77 Temp 36.3 C (97.4 F) (Temporal) Resp 16 Ht 1.651 m (5' 5) Wt 65.8 kg (145 lb) SpO2 95% BMI 24.13 kg/m Gen: Nontoxic appearing CV: RRR, no murmurs Pulm: CTA BL Abdomen: Distended, soft but diffuse tenderness, hyperactive bowel sounds, no rigidity/rebound/guarding Lower Extremity Exam: Scabs noted left anterior tibia without surrounding cellulitis. Moving all extremities spontaneously. No calf tenderness to palpation. Bilateral DP pulses 1+ bilaterally DIAGNOSTIC RESULTS RADIOLOGY (Per Emergency Physician): CT abdomen/pelvis Significant atherosclerotic disease with collateral reconstitution Interpretation per the Radiologist below, if available at the time of this note: CT abdomen pelvis w contrast Final Result 1. 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 2. Fatty liver 3. Sigmoid diverticulosis Report Dictated on Electronically Signed By: Dion Valenzuela MD Electronically Signed Date/Time: 01/06/2025 3:00 AM EDT LABS: Labs Reviewed CBC WITH AUTO DIFFERENTIAL - Abnormal Result Value Auto WBC 6.2 RBC 4.66 Hemoglobin 13.3 Hematocrit 40.7 MCV 87.3 MCH 28.5 MCHC 32.7 RDW 15.7 (*) Platelets 271 MPV 9.2 nRBC 0.0 COMPREHENSIVE METABOLIC PANEL - Abnormal SODIUM 136 POTASSIUM 3.9 CHLORIDE 105 CARBON DIOXIDE 23 ANION GAP 8 UREA NITROGEN 25 (*) CREATININE 1.02 GLUCOSE 108 CALCIUM 9.0 AST (SGOT) 31 ALT 24 ALKALINE PHOSPHATASE 70 ALBUMIN 3.3 (*) BILIRUBIN, TOTAL 0.6 TOTAL PROTEIN 6.9 eGFR 55.0 (*) LIPASE - Abnormal LIPASE 112 (*) COMPLETE URINALYSIS WITH REFLEX TO CULTURE - Abnormal Color, Urine Yellow Clarity, Urine Clear pH, Urine 7.0 Leukocytes, Urine 75 (*) Nitrite, Urine Negative Protein, Urine Negative Glucose, Urine Normal Bilirubin, Urine Negative Ketones, Urine Negative Urobilinogen, Urine Normal Blood, Urine 0.06 (*) Volume, Urine 12 mL RBC, Urine 0-2 WBC, Urine 3-5 Squamous Epithelial, Urine 3-5 Bacteria, Urine Moderate (*) Mucus, Urine Negative Amorphous Phosphates, Urine Few (*) SPECIFIC GRAVITY OF URINE (NUMERIC) 1.013 Narrative: A specimen with <=10 WBC is not consistent with inflammation. This specimen will not reflex to a urine culture. MANUAL DIFFERENTIAL - Abnormal Adjusted WBC 6.2 Neutrophils % 43 Lymphocytes % 45 Atypical Lymphocytes % 2 (*) Monocytes % 9 Eosinophils % 1 Absolute Neutrophil Count 2.7 Lymphocytes Absolute 2.8 Atypical Lymphs Absolute 0.1 (*) Monocytes Absolute 0.6 Eosinophils Absolute 0.1 Anisocytosis Slight (*) Toxic Granulation Present (*) Giant PLTs Slight (*) Total Counted 100 Neutrophils Manual 43 Lymphocytes Manual 45 Monocytes Manual 9 Eosinophils Manual 1 Atypical Lymphocytes Manual 2 LACTIC ACID WITH REFLEX - Normal LACTIC ACID 0.9 THYROID STIMULATING HORMONE - Normal THYROID STIMULATING HORMONE 2.81 URINE CULTURE, ORDERABLE Narrative: The following orders were created for panel order Urine culture. Procedure Abnormality Status --------- ------ Urine culture[[id number]] In process Urine Hold Cup[[id number]] Please view results for these tests on the individual orders. URINE CULTURE URINE HOLD CUP CBC WITH AUTO DIFFERENTIAL COMPREHENSIVE METABOLIC PANEL WITH MG REFLEX Narrative: The following orders were created for panel order Comprehensive Metabolic Panel w/ Mg Reflex. Procedure Abnormality Status --------- ------ Comprehensive metabolic ...[[id number]] Please view results for these tests on the individual orders. COMPREHENSIVE METABOLIC PANEL All other labs were within normal range or not returned as of this dictation. EMERGENCY DEPARTMENT COURSE and DIFFERENTIAL DIAGNOSIS/MDM: Vitals: Vitals: 01/06/25 0650 01/06/25 0809 01/06/25 0900 01/06/25 2032 BP: (!) 153/88 (!) 156/98 (!) 164/82 156/84 BP Location: Left arm Right arm Patient Position: Sitting Lying Pulse: 89 91 80 77 Resp: 17 18 18 16 Temp: 36.2 C (97.1 F) 36.3 C (97.4 F) TempSrc: Temporal Temporal SpO2: 97% 99% 95% 95% Weight: Height: 84 y.o. female medical history of dementia, CHF, atrial fibrillation on Eliquis who presents to the emergency department from [facility] for abdominal pain. Per transporting EMS, they were called because patient was screaming out in pain. When they arrived on scene, patient seated on toilet with constipation. Denying abdominal pain to the transporting EMS and throughout transport. On arrival, patient pleasantly demented. Denies abdominal pain. Does not know why she is here. Limited HPI secondary to patient dementia. On exam, patient noted to have abdominal distention with hyperactive bowel sounds. Diffuse tenderness to palpation, predominantly epigastric abdomen. Considered bowel obstruction, ileus, pneumoperitoneum, diverticulitis, constipation, fecal impaction. Small dose IV morphine ordered. Abdominal labs including lactic acid and CT imaging of abdomen ordered to evaluate symptomology. Labs with elevated lipase and UTI CT abdomen/pelvis with atherosclerotic disease with collateral reconstitution of occlusions. While patient without imaging findings of pancreatitis on CT, given elevated lipase and epigastric tenderness to palpation in severely demented patient, concern for acute pancreatitis. Given 1 L IV fluids and antiemetic. Given IV Rocephin for UTI. CT imaging additionally with significant atherosclerotic disease. Doubt mesenteric ischemia given normal lactic acid and patient on Eliquis for atrial fibrillation. 1+ symmetric DP pulses bilateral feet and patient without endorsed leg pain. Patient admitted medically to [facility] service for continued management. ED Medications managed: Medications morphine injection 2 mg (2 mg IntraVENous Not Given 01/06/25 0207) donepezil (Aricept) tablet 10 mg (10 mg Oral Given 01/06/252234) escitalopram (Lexapro) tablet 15 mg (15 mg Oral Given 01/06/25 1216) metoprolol tartrate (Lopressor) tablet 25 mg (25 mg Oral Given 01/06/255) acetaminophen (Tylenol) tablet 650 mg (650 mg Oral Given 01/06/25 1534) Or acetaminophen (Tylenol) suppository 650 mg ( Rectal See Alternative 01/06/25 1534) ondansetron ODT (Zofran-ODT) disintegrating tablet 4 mg (has no administration in time range) Or ondansetron (Zofran) injection 4 mg (has no administration in time range) polyethylene glycol (PEG) 3350 (Miralax) packet 17 g (has no administration in time range) cefTRIAXone (Rocephin) 1,000 mg in sodium chloride 0.9 % 50 mL IVPB Mini-Bag Plus (has no administration in time range) senna-docusate sodium (Senokot-S) 8.6-50 MG tablet 2 tablet (2 tablets Oral Given 01/06/25 1216) apixaban (Eliquis) tablet 5 mg (5 mg Oral Given 01/06/25 2235) levothyroxine (Synthroid, Levoxyl) tablet 88 mcg (has no administration in time range) Petrolatum ointment (has no administration in time range) sodium chloride 0.9 % bolus 1,000 mL (0 mL IntraVENous Stopped 01/06/25 0420) ondansetron (Zofran) injection 4 mg (4 mg IntraVENous Given 01/06/25 0118) iopamidol (Isovue-370) 76 % injection 75 mL (75 mL IntraVENous Given 01/06/25 0217) cefTRIAXone (Rocephin) 1,000 mg in sodium chloride 0.9 % 50 mL IVPB Mini-Bag Plus (0 mg IntraVENous Stopped 01/06/25419) PROCEDURES: Unless otherwise noted below, none Procedures FINAL IMPRESSION 1. Acute pancreatitis, unspecified complication status, unspecified pancreatitis type DISPOSITION Observation 01/06/2025 03:32:58 AM PATIENT REFERRED TO: No follow-up provider specified. DISCHARGE MEDICATIONS: Current Discharge Medication List (Comment: Please note this report has been produced using speech recognition software and may contain errors related to that system including errors in grammar, punctuation, and spelling, as well as words and phrases that may be inappropriate. If there are any questions or concerns please feel free to contact the dictating provider for clarification.) Luana Trinidad DO (electronically signed) Emergency Medicine Provider [1] Past Medical History: Diagnosis Date Afib (CMS/HCC) (HCC) Anxiety CHF (congestive heart failure) (HCC) COPD (chronic obstructive pulmonary disease) (HCC) Dementia (HCC) Depression Hyperlipidemia Hypertension Hypothyroid Insomnia Pulmonary HTN (HCC) [2] History reviewed. No pertinent surgical history. [3] No family history on file. [4] Social History Socioeconomic History Marital status: Tobacco Use Smoking status: Former Current packs/day: 1.00 Average packs/day: 1 pack/day for 0.4 years (0.4 ttl pk-yrs) Types: Cigarettes Start date: 2024 Vaping Use Vaping status: Unknown Substance and Sexual Activity Alcohol use: Not Currently Drug use: Not Currently Social Drivers of Health Transportation Needs: No Transportation Needs (01/06/2025) PRAPARE - Transportation Lack of Transportation (Medical): No Lack of Transportation (Non-Medical): No Intimate Partner Violence: Not At Risk (01/06/2025) Humiliation, Afraid, Rape, and Kick questionnaire Fear of Current or Ex-Partner: No Emotionally Abused: No Physically Abused: No Sexually Abused: No Housing Stability: Low Risk (01/06/2025) Housing Stability Vital Sign Unable to Pay for Housing in the Last Year: No Number of Times Moved in the Last Year: 0 Homeless in the Last Year: No Luana Trinidad DO 01/07/25 0048 [facility] 11-19-2024 History of Present illness Narrative [facility] Medical [facility] Cardiology [facility] - [address] [facility] [id number] Dept: [phone] Dept Visit type: New : 1940 Chief Complaint: Chief Complaint Patient presents with New Patient Congestive Heart Failure Atrial Fibrillation History of Present Illness: Sommer Friedman is a 84 y.o. female who was referred here for atrial fibrillation. She had been living in [place] to take care of her mother who has subsequently passed. However, she moved back to the area about 3 years ago. She is here with her son. She has fairly significant dementia. She lives in a nursing facility. There are no complaints of chest pain or significant shortness of breath. She has not had any palpitations, syncope or near syncope. Past Medical History: Past Medical History: Diagnosis Date Afib (CMS/HCC) (HCC) Anxiety CHF (congestive heart failure) (HCC) COPD (chronic obstructive pulmonary disease) (HCC) Dementia (HCC) Depression Hyperlipidemia Hypertension Hypothyroid Insomnia Pulmonary HTN (HCC) Past Surgical History History reviewed. No pertinent surgical history. Family History No family history on file. Social History Social History Tobacco Use Smoking status: Unknown Vaping Use Vaping status: Unknown Substance Use Topics Alcohol use: Not Currently Drug use: Not Currently Allergies: Allergies Allergen Reactions Doxycycline Other Reaction(s): Not available Gabapentin Propoxyphene Medications: Current Outpatient Medications: apixaban (Eliquis) 2.5 MG tablet, Take 2.5 mg by mouth 2 times daily., Disp: , Rfl: biotin 5 MG capsule, Take 5 mg by mouth daily., Disp: , Rfl: busPIRone (Buspar) 5 MG tablet, 5 mg oral nightly for one week then increase to 10 mg oral nightly, Disp: 30 tablet, Rfl: 0 calcium carbonate (Tums) 500 MG chewable tablet, Chew 500 mg as needed for indigestion or heartburn., Disp: , Rfl: carboxymethylcellulose (Refresh Plus) 0.5 % ophthalmic solution, Administer 2 drops into both eyes in the morning and 2 drops in the evening., Disp: , Rfl: donepezil (Aricept) 10 MG tablet, Take 10 mg by mouth Nightly., Disp: , Rfl: escitalopram (Lexapro) 10 MG tablet, Take 15 mg by mouth daily., Disp: , Rfl: Fluticasone-Salmeterol (Advair Diskus) 500-50 MCG/ACT aerosol powder , Inhale 1 puff in the morning and 1 puff in the evening., Disp: , Rfl: furosemide (Lasix) 40 MG tablet, Take 1 tablet (40 mg) by mouth daily., Disp: 30 tablet, Rfl: 0 levothyroxine (Tirosint) 88 MCG capsule, Take 88 mcg by mouth every morning (before breakfast)., Disp: , Rfl: Melatonin 3 MG tablet dispersible, Take 9 mg by mouth Nightly., Disp: , Rfl: metoprolol tartrate (Lopressor) 25 MG tablet, Take 1 tablet (25 mg) by mouth 3 times daily. (Patient taking differently: Take 25 mg by mouth 2 times daily.), Disp: 90 tablet, Rfl: 1 polyethylene glycol, PEG, 3350 (Miralax) 17 g packet, Take 17 g by mouth daily., Disp: , Rfl: traZODone (Desyrel) 50 MG tablet, Take 25 mg by mouth Nightly., Disp: , Rfl: Review of Systems: Review of Systems Constitutional: Negative for activity change, chills, diaphoresis, fatigue and fever. HENT: Negative for nosebleeds and trouble swallowing. Eyes: Negative for discharge and visual disturbance. Respiratory: Positive for shortness of breath (with any activity/exc). Negative for apnea, cough, chest tightness and wheezing. Cardiovascular: Positive for palpitations (occ feels heart racing) and leg swelling (slight on left leg). Negative for chest pain. Gastrointestinal: Negative for abdominal distention, abdominal pain, blood in stool, diarrhea, nausea and vomiting. Endocrine: Negative for cold intolerance and heat intolerance. Genitourinary: Negative for hematuria. Musculoskeletal: Negative for gait problem and myalgias. Skin: Negative for color change and rash. Neurological: Negative for dizziness, seizures, syncope, facial asymmetry, speech difficulty, weakness, light-headedness, numbness and headaches. Hematological: Does not bruise/bleed easily. Psychiatric/Behavioral: Negative for dysphoric mood. Physical Examination: Vitals: Vitals: 11/19/24 1302 BP: 110/70 BP Location: Left arm Patient Position: Sitting BP Cuff Size: Adult Pulse: 86 Resp: 16 SpO2: 97% Weight: 132 lb (59.9 kg) Height: 5' 4 (1.626 m) Body mass index is 22.66 kg/m . Physical Exam Constitutional: Appearance: Normal appearance. HENT: Head: Normocephalic and atraumatic. Nose: Nose normal. Eyes: General: No scleral icterus. Extraocular Movements: Extraocular movements intact. Pupils: Pupils are equal, round, and reactive to light. Neck: Thyroid: No thyromegaly. Vascular: No carotid bruit or JVD. Cardiovascular: Rate and Rhythm: Normal rate. Rhythm irregularly irregular. Pulses: Normal pulses. Heart sounds: No murmur heard. No gallop. Pulmonary: Effort: Pulmonary effort is normal. Breath sounds: No wheezing, rhonchi or rales. Chest: Chest wall: No tenderness. Abdominal: General: Abdomen is flat. There is no distension. Palpations: Abdomen is soft. There is no hepatomegaly, splenomegaly or mass. Musculoskeletal: General: No swelling or tenderness. Normal range of motion. Cervical back: No tenderness. Skin: General: Skin is warm. Neurological: General: No focal deficit present. Mental Status: She is alert and oriented to person, place, and time. She is confused. Cranial Nerves: Cranial nerves 2-12 are intact. No cranial nerve deficit. Psychiatric: Attention and Perception: Attention normal. Mood and Affect: Mood normal. Speech: Speech normal. Behavior: Behavior normal. Laboratory Tests: Lab Results Component Value Date WBC 7.8 11/01/2024 HGB 13.8 11/01/2024 HCT 42.3 11/01/2024 MCV 95.9 11/01/2024 PLT 313 11/01/2024 Lab Results Component Value Date GLUCOSE 120 (H) 11/01/2024 CALCIUM 9.1 11/01/2024 NA 134 (L) 11/01/2024 K 3.5 11/01/2024 CO2 23 11/01/2024 CL 102 11/01/2024 BUN 26 (H) 11/01/2024 CREATININE 1.01 11/01/2024 NT PRO BNP Date Value Ref Range Status 10/29/2024 11,795 (H) <450 pg/mL Final Assessment and Plan: 1. Permanent atrial fibrillation (HCC) 2. Atrial fibrillation with rapid ventricular response (HCC) 3. Encounter to establish care with new provider 4. Essential hypertension 1. Atrial fibrillation: She is asymptomatic. Her rate is controlled. She is anticoagulated. I would continue with this strategy. 2. Hypertension: Controlled. 3. Dementia. documented in this encounter [facility] 11-01-2024 Nurse Note Report called to [facility] Kil[facility] RN. [facility] 11-01-2024 Nurse Note Report called to [facility] RN. Attempt to call repost to [facility] for picker machine operator time at 1900. The nurse was not available that this time. Will attempt again Call to family. Voicemail left for son Parris to update him as well. Patients updated home meds list was not on the patients file so called [facility] for home meds list . They fax thrice but only can get front page . Informed them about the fax received but can't resolve this problem at the moment. [facility] wants us to call after 0830 for follow up. documented in this encounter [facility] 11-01-2024 Nurse Note Attempt to call repost to [facility] for picker machine operator time at 1900. The nurse was not available that this time. Will attempt again Call to family. Voicemail left for kaushal Huitron to update him as well. [facility] 11-01-2024 Note Formatting of this n ote might be different from the original. Dc to [facility] this evening at 7:00. ( That was next available in Round Trip. [facility] messaged the snf to notify them of dc time. Spoke with patients kaushal Huitron to discuss dc planning. Report number provided to the bedside nurse. [facility] 11-01-2024 Note Formatting of this n ote might be different from the original. Dc to [facility] this evening at 7:00. ( That was next available in Round Trip. [facility] messaged the snf to notify them of dc time. Spoke with patients kaushal Huitron to discuss dc planning. Report number provided to the bedside nurse. [facility] 11-01-2024 Miscellaneous Notes Dc to [facility] this evening at 7:00. ( That was next available in [facility]. [facility] messaged the snf to notify them of dc time. Spoke with patients son Parris to discuss dc planning. Report number provided to the bedside nurse. Discharge med list transmitted to return back to [facility] per [facility] request. Care Management Progress Note DC order noted. BOWLING BALL GRADER tasked to send DC packet and MAR to [facility] where pt is [facility] care there and bedhold. SW to set up transport. Length of Stay (Days): 2 GMLOS: 3.9 Sent updated notes to return back to [facility] via [facility] per [facility] request. Await review and response regarding ability to accept. [facility] notified. Problem: Knowledge Deficit Goal: Patient/family/caregiver demonstrates understanding of disease process, treatment plan, medications, and discharge instructions 11/01/2024557 by Odette Anand RN Outcome: Progressing 11/01/2024 050 by Odette Anand RN Outcome: Progressing Problem: Potential for Compromised Skin Integrity Goal: Skin Integrity is Maintained or Improved 11/01/2024557 by Odette Anand RN Outcome: Progressing 11/01/2024 0509 by Odette Anand RN Outcome: Progressing Goal: Nutritional status is improving 11/01/2024 0558 by Odette Anand RN Outcome: Progressing 11/01/2024 0509 by Odette Anand RN Outcome: Progressing Problem: Urinary Incontinence Goal: Perineal skin integrity is maintained or improved 11/01/2024 0558 by Odette Anand RN Outcome: Progressing 11/01/2024 0509 by Odette Anand RN Outcome: Progressing Problem: Potential for Falls Goal: I will remain free of falls 11/01/2024 0558 by Odette Anand RN Outcome: Progressing 11/01/2024 0509 by Odette Anand RN Outcome: Progressing Problem: Discharge Barriers Goal: My discharge needs are met 11/01/2024 05 by Odette Anand RN Outcome: Progressing 11/01/2024 0509 by Odette Anand RN Outcome: Progressing Problem: Knowledge Deficit Goal: Patient/family/caregiver demonstrates understanding of disease process, treatment plan, medications, and discharge instructions Outcome: Progressing Problem: Potential for Compromised Skin Integrity Goal: Skin Integrity is Maintained or Improved Outcome: Progressing Goal: Nutritional status is improving Outcome: Progressing Problem: Urinary Incontinence Goal: Perineal skin integrity is maintained or improved Outcome: Progressing Problem: Potential for Falls Goal: I will remain free of falls Outcome: Progressing Problem: Discharge Barriers Goal: My discharge needs are met Outcome: Progressing Referral placed to return back to [facility] via [facility] per [facility] request. Await review and response regarding ability to accept. [facility] notified. Care Management Progress Note Spoke with pt's son Parris and he states he is okay with pt going back to [facility]. BOWLING BALL GRADER tasked to make ICF return to [facility]. Length of Stay (Days): 1 GMLOS: No GMLOS Documented Problem: Potential for Compromised Skin Integrity Goal: Skin Integrity is Maintained or Improved Outcome: Progressing Goal: Nutritional status is improving Outcome: Not Progressing Problem: Urinary Incontinence Goal: Perineal skin integrity is maintained or improved Outcome: Progressing Problem: Potential for Compromised Skin Integrity Goal: Nutritional status is improving Outcome: Not Progressing Problem: Potential for Falls Goal: I will remain free of falls Outcome: Not Progressing documented in this encounter [facility] 11-01-2024 Note Formatting of this n ote might be different from the original. Discharge med list transmitted to return back to [facility] via [facility] per [facility] request. [facility] 11-01-2024 Note Formatting of this n ote might be different from the original. Discharge med list transmitted to return back to [facility] via [facility] per [facility] request. [facility] 11-01-2024 Note Formatting of this n ote might be different from the original. Care Management Progress Note DC order noted. BOWLING BALL GRADER tasked to send DC packet and MAR to [facility] where pt is [facility] care [facility] and bedhold. SW to set up transport. Length of Stay (Days): 2 GMLOS: 3.9 [facility] 11-01-2024 Note Formatting of this n ote might be different from the original. Care Management Progress Note DC order noted. 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 SW to set up transport. Length of Stay (Days): 2 GMLOS: 3.9 [facility] 11-01-2024 Note [facility] 11-01-2024 Hospital Discharge instructions Malathi Stern RN - 11/01/2024 12:31 PM EDT Images from the original note were not included. Continuity of Care Form Patient Name: Sommer Friedman : 1940 Admit date: 10/29/2024 Discharge date: 11/01/24 Code Status Order: Full Code Advance Directives: N Admitting Physician: Toribio Shepherd MD PCP: Kathi Juarez MD Discharging Nurse: Discharging Hospital Unit/Room#: B2-245/B2-245 A Discharging Unit Phone Number: [phone] Emergency Contact: Extended Emergency Contact Information Primary Emergency Contact: Parris Friedman Mobile Relation: Son Secondary Emergency Contact: Jaylan Friedman Mobile Relation: Son Preferred language: Salvadorean Roll Cutter needed? No Past Surgical History: History reviewed. No pertinent surgical history. Immunization History: There is no immunization history on file for this patient. Active Problems: Medical Problems Problem List * (Principal) Acute heart failure with preserved ejection fraction (HFpEF) (HCC) Low back pain without sciatica, unspecified back pain laterality, unspecified chronicity Lumbago Cognitive communication deficit Dementia (HCC) Atrial fibrillation, permanent (HCC) Debility Essential hypertension Spinal stenosis of lumbar region Pure hypercholesterolemia Overview Signed 10/30/2024 12:28 PM by Casey Elkins MD 272.0:Hypercholesterolemia Osteopenia Hypothyroidism Overview Signed 10/30/2024 12:28 PM by Casey Elkins MD 244.9:Hypothyroidism, Acquired History of colonic polyps Disorder of bone and articular cartilage Overview Signed 10/30/2024 12:28 PM by Casey Elkins MD 733.90:Osteopenia Depressive disorder Overview Signed 10/30/2024 12:28 PM by Casey Elkins MD 311:Depressive Disorder NOS Anxiety state Overview Signed 10/30/2024 12:28 PM by Casey Elkins MD 300.00:Anxiety Bilateral tinnitus Constipation Isolation/Infection: No active isolations No active infections Nurse Assessment: Last Vital Signs: BP 150/76 (BP Location: Right arm, Patient Position: Lying) Pulse 107 Temp 36.2 C (97.1 F) (Temporal) Resp 16 Ht 5' 4 (1.626 m) Wt 128 lb (58.1 kg) SpO2 94% BMI 21.97 kg/m Last documented pain score (0-10 scale): Last Weight: Wt Readings from Last 1 Encounters: 10/29/24 128 lb (58.1 kg) Mental Status: WONG Patient Mental Status: disoriented, alert, and able to concentrate and follow conversation IV Access: WONG IV Access: None Nursing Mobility/ADLs: Walking Total assistance Transfer Total assistance Bathing Minimal assistance Dressing Minimal assistance Toileting Total assistance Feeding Minimal assistance Dry Sand Molder Independent Med Delivery yes Wound Care Documentation and Therapy: Elimination: Continence: Bowel: no Bladder: no Urinary Catheter: None Colostomy/Ileostomy/Ileal Conduit: None Date of Last BM: 10/31/2024 Intake/Output Summary (Last 24 hours) at 11/01/2024 1230 Last data filed at 11/01/2024 0800 Gross per 24 hour Intake 320 ml Output -- Net 320 ml I/O last 3 completed shifts: In: 380 (6.5 mL/kg) [P.O.:380] Out: - (0 mL/kg) Weight: 58.1 kg Safety Concerns: at risk for falls Impairments/Disabilities: none Nutrition Therapy: Current Nutrition Therapy: Oral diet: general Routes of Feeding: oral Liquids: thin liquids Daily Fluid Restriction: no Last Modified Barium Swallow with Video (Video Swallowing Test): not done Treatments at the Time of Hospital Discharge: Respiratory Treatments: none Oxygen Therapy: is not on home oxygen therapy. Ventilator: No ventilator support Rehab Therapies: physical therapy, occupational therapy, and nursing Weight Bearing Status/Restrictions: no restriction Other Medical Equipment (for information only, NOT a DME order): bedside commode, wheeled walker, and shower chair Other Treatments: N/A Patient's personal belongings (please select all that are sent with patient): glasses and clothing RN SIGNATURE: Patient returning to [place] [id number] [phone] [facility] on license of [facility] PHYSICIAN SECTION Name: Sommer Friedman Prognosis: good Condition at Discharge: stable Rehab Potential (if transferring to Rehab): fair Recommended Labs or Other Treatments After Discharge: BMP/CBC on 11/06/2024 The individual is being admitted to a nursing facility directly from an [facility] or a unit of a [facility] that is not operated by or licensed by [facility] under section 5119.14 or 5160-3-15.1 5 The individual requires the level of services provided by a nursing facility for the condition for which he or she was treated in the hospital and, Physician Certification: I certify the above information and transfer of Sommer Friedman is necessary for the continuing treatment of the diagnosis listed and that she requires intermediate nursing care for greater than 30 days. Update Admission H&P: No change in H&P PHYSICIAN SIGNATURE: The following attachments cannot be sent through Care Everywhere.Heart Failure and Atrial Fibrillation (Salvadorean)documented in this encounter [facility] 11-01-2024 History of Present illness Narrative Images from the original note were not included. OCCUPATIONAL THERAPY [facility] Initial Evaluation Name/MRN: Clemencia Friedman ([id number]) Evaluation Date: 11/01/2024 Date of : 1940 Admission Date: 10/29/2024 9:29 AM Age: 84 y.o. Room/Bed: B2-245/B2-245 A Discharge Recommendation: Alf Facility Assessment IMPRESSION: Pt admitted to ED on 10/30 with irregular heart beat. Prior to admission, pt lived at SNF and performed ADLs and mobility at indep level. H/o cognitive decline. Upon eval, pt required min assist for bed mobility, mod assist overall for transfers, and max assist overall for ADLs. Recommend return to SNF upon DC. Pt would benefit from skilled OT services in order to increase safety and independence in occupational tasks. Admitting Diagnosis: heart failure Performance Deficits /Impairments: Increased Pain, Decreased Functional Mobility, Decreased ADL status, Decreased Strength, Decreased Safety Awareness, Decreased Endurance, Decreased Balance, Decreased ROM, Decreased High Level IADLs, and Decreased Cognition Prognosis: Good Decision Making: Medium Complexity Subjective OK to see pt per nurse. Pt lying in bed upon therapist arrival. Agreeable to evaluation. Pain: Pt denies any current pain. But says ouch when moving Past Medical History: Past Medical History: Diagnosis Date Afib (CMS/HCC) (HCC) Anxiety CHF (congestive heart failure) ([facility]) COPD (chronic obstructive pulmonary disease) ([facility]) Dementia ([facility]) Depression Hyperlipidemia Hypertension Hypothyroid Insomnia Pulmonary HTN ([facility]) Past Surgical History: History reviewed. No pertinent surgical history. Admission Diagnosis: Patient Active Problem List Diagnosis Date Noted Atrial fibrillation, permanent (HCC) 10/30/2024 Debility 10/30/2024 Essential hypertension 10/30/2024 Pure hypercholesterolemia 10/30/2024 Hypothyroidism 10/30/2024 Disorder of bone and articular cartilage 10/30/2024 Depressive disorder 10/30/2024 Acute heart failure with preserved ejection fraction (HFpEF) ([facility]) 10/29/2024 Lumbago 04/12/2024 Low back pain without sciatica, unspecified back pain laterality, unspecified chronicity 04/10/2024 Cognitive communication deficit 12/22/2023 Constipation 08/10/2022 Dementia (HCC) 08/02/2022 Spinal stenosis of lumbar region 03/19/2020 Osteopenia 03/19/2020 History of colonic polyps 03/19/2020 Bilateral tinnitus 03/19/2020 Anxiety state 07/28/2014 Medical Precautions: No active isolations Proper PPE donned/doffed in accordance with facility standards. Fall Risk: Eckert Fall Risk Score: 60 (High Risk) Precautions/Restrictions: Fall Precautions Family/Caregiver Present: none Overall Cognitive Status: Exceptions - Following commands: follows one step commands with increased time and follows one step commands with repetition - Attention span: attends with cues to redirect - Memory: decreased recall of biographical information, decreased recall of recent events, decreased short term memory, and decreased [facility] memory - Safety judgement: decreased awareness of need for assistance and decreased awareness of need for safety - Problem solving: assistance required to generate solutions, assistance required to implement solutions, assistance required to identify errors made, assistance required to correct errors made, and decreased awareness of errors - Insights: decreased awareness of deficits - Initiation: requires cues for some - Sequencing: requires cues for some Overall Orientation Status: Oriented to Time, Oriented to Person, Disoriented to Situation, and Disoriented to Place Social/Functional History Patient admitted from [facility] . Assistive Equipment: front wheeled walker and wheelchair - manual Prior Level of Function Prior Level of ADL Function: Independent Prior Level of Mobility: Independent; Device: Front wheeled walker Prior Level of Transfers: Independent Objective ADLs LE Dressing: Max Assist Toileting: Max Assist Seated on BSC, able to complete juanis hygiene after urination. Total assist for management of brief. Pt unable to doff socks. Pt requires max assist overall for LB dressing. Bed Mobility Supine to sit: Min Assist Sit to supine: Contact Guard Rolling to right: Contact Guard Scooting: SBA HOB Elevated Use of bed rail(s) No reports of dizziness with positional changes. Transfers/Mobility Sit to stand: Min Assist, Mod Assist Stand to sit: Min Assist, Mod Assist Stand pivot: Mod Assist Stand step: Min Assist Bedside commode: Mod Assist Sitting balance: SBA, Contact Guard Standing balance: Min Assist, Mod Assist Functional mobility: not assessed Sitting EOB to standing at FWW, mod assist and cues for hand placement. Complete bed>BSC transfer with mod assist, SPT, cues for technique. Compete BSC>bed, min assist, cues for sequencing, use of FWW. Side step along bed using FWW, min assist. Standing at FWW to sitting EOB, min assist. Device(s) used: Front wheeled walker Hearing: impaired AM-PAC AM-PAC Inpatient Daily Activity Raw Score: 17 ADL Inpatient CMS G-Code Modifier: CK Plan Pt would benefit from skilled acute OT services to address Strengthening, ROM, Gait Training, Balance Training, Self-Care/ADL Training, Functional Mobility Training, Endurance Training, Safety Education and Training, Pain Management, Cognitive Reorientation, and Patient/Caregiver Training. Frequency: 7 visits during current hospital admission or until additional recommendations are made Barriers: Pain, Impaired balance, Lower extremity weakness, Limited safety awareness, Decreased endurance, Confusion, Cognitive deficit, Limited insight into deficits, Long standing deficits, and Incontinence of bladder Safety/Education Safety Safety Devices in place: All fall risk precautions in place, call light within reach, left in bed, bed alarm in place, gait belt, and patient at risk for falls Restraints: No Education Education Given To: patient Education Provided: OT Role, Plan of Care, ADL Adaptive Strategies, Transfer Training, Discharge Recommendations, and Benefits of Increasing Activity Education Method: Verbal and Demonstration Barriers to Learning: Cognition Education Outcome: Verbalized Understanding and Continued Education Needed Goals Patient Stated Goal: none stated Encounter Problems Encounter Problems (Active) Balance Patient will tolerate standing for 4 minutes with SBA to allow for participation in ADL's and transfers. Start: 11/01/24 Expected End: 11/08/24 Bathing Patient will bathe body at supervised level Start: 11/01/24 Expected End: 11/08/24 Dressing Upper Extremities Patient will complete upper body dressing at indep level Start: 11/01/24 Expected End: 11/08/24 Dressings Lower Extremities Patient will dress lower body at supervised level Start: 11/01/24 Expected End: 11/08/24 Mobility Patient will demonstrate functional ambulation and transfers with LRD at supervised level. Start: 11/01/24 Expected End: 11/08/24 Toileting Patient will complete toileting tasks at standard toilet with supervision. Start: 11/01/24 Expected End: 11/08/24 Therapy Time Individual Co-Treatment Co-Evaluation Time In 1131 Time Out 1156 Minutes 25 Angelnie Cheryl, OT Patient's Occupational Therapy Plan of Care supervision is transferred to a [facility] Occupational Therapist. Goals and/or treatment plan was established in collaboration with patient/family/other representatives. [facility] Geriatric Medicine Inpatient Consult Service Admission Date: 10/29/2024 Assessment Principal Problem: Acute heart failure with preserved ejection fraction (HFpEF) (HCC) Active Problems: Dementia (HCC) Atrial fibrillation, permanent (HCC) Debility Essential hypertension Plan Dementia --Lives at [facility] for 2 years --continue Donepezil 10mg daily --Gradual cognitive decline. Can get irritable at baseline. --MRI brain 11/27/23 - moderate chronic microvascular ischemia --11/01: calm today, received 2 doses of Seroquel last night. Awake and eating breakfast. Continue with PRN Seroquel BID. Continue to treat pain--no pain at this time. At risk for delirium --Risk factors: pain, advanced age, sensory impairments, acute illness, high risk medications, and baseline cognitive deficits --Encourage PO intake, time up in chair, family visits, supervised ambulation, and sleep hygiene --If agitated, assess for and consider treating for pain --QTc= 462 ms --No antipsychotic unless patient is danger to self/others/treatment --If agitated, recommend Seroquel 12.5mg BID PRN --Avoid benzodiazepines and anticholinergic medications --Continue scheduled melatonin at --Monitor for constipation/urinary retention - last BM 10/30 --Possible medication contributions: Tizanidine, Morphine --11/01: +agitation. Continue plan. Debility --contributing factors include spinal stenosis, heart failure, COPD, Dementia --lives in LTC --PT and OT while inpatient --Anticipate return to SNF/LTC at discharge --11/01: stable. Continue plan. Depression/Anxiety --Continue Lexapro 15mg daily. Recommend as outpatient lowering to 10mg daily. Can consider switching to Sertraline outpatient. --Continue Buspar 5mg BID --11/01: +anxiety. Increase Buspar to 10mg in the AM and 5mg and than increase to 10mg in 1 week. Chronic pain --takes Tizanidine 4mg TID but it has been on hold at [facility] since recent hospitalization. Continue to use only PRN. May have contributed to confusion-- try not use -Monitor LFTs, consider adding scheduled Tylenol and using less Tizanidine --11/01: Discussed with nursing to treat pain Follow-up: will follow with you Subjective Chief Complaint: conufsion Geriatrics consulted for functional and cognitive decline/dementia HPI- The patient is new to me but seen by the Geriatric Inpatient Consult team. 84 y.o. year-old female admitted to acute care from [facility] for SOB. Admitted with acute heart failure, atrial fibrillation with RVR. Interval History: Remains on telemetry. Pt seen today alert and oriented times person. Eating her breakfast without any issues. Denies pain. States she is always anxious. Received 2 doses of Seroquel last night for agitation at 1900 and 0204. Also seen by palliative care. Seen by PT. min assist. Ambulated 2 ft. Recommending short term SNF for rehab. Review of Systems Constitutional: Negative for chills and fever. Respiratory: Negative for shortness of breath. Cardiovascular: Negative for chest pain. Gastrointestinal: Negative for abdominal pain. Genitourinary: Negative for difficulty urinating. Musculoskeletal: Positive for gait problem. Neurological: Negative for dizziness and headaches. Psychiatric/Behavioral: Positive for confusion. The patient is nervous/anxious. Objective BP 150/76 (BP Location: Right arm, Patient Position: Lying) Pulse 107 Temp 36.2 C (97.1 F) (Temporal) Resp 16 Ht 5' 4 (1.626 m) Wt 128 lb (58.1 kg) SpO2 94% BMI 21.97 kg/m Intake/Output Summary (Last 24 hours) at 11/01/2024 0931 Last data filed at 10/31/2024 1700 Gross per 24 hour Intake 200 ml Output -- Net 200 ml Wt Readings from Last 3 Encounters: 10/29/24 128 lb (58.1 kg) 10/24/24 135 lb (61.2 kg) 10/18/24 135 lb (61.2 kg) Current Facility-Administered Medications: acetaminophen (Tylenol) tablet 650 mg, 650 mg, Oral, q6h PRN OR acetaminophen (Tylenol) suppository 650 mg, 650 mg, Rectal, q6h PRN, Travis Goncalves MD apixaban (Eliquis) tablet 2.5 mg, 2.5 mg, Oral, BID, Travis Goncalves MD, 2.5 mg at 10/31/242101 busPIRone (Buspar) tablet 10 mg, 10 mg, Oral, BID, Amy Mathew, SIGN PAINTER - [employer] calcium carbonate (Tums) chewable tablet 500 mg, 500 mg, Oral, PRN, Travis Goncalves MD donepezil (Aricept) tablet 10 mg, 10 mg, Oral, Nightly, Travis Goncalves MD, 10 mg at 10/31/242101 escitalopram (Lexapro) tablet 15 mg, 15 mg, Oral, Daily, Travis Goncalves MD, 15 mg at 10/31/24 0915 furosemide (Lasix) tablet 40 mg, 40 mg, Oral, Daily, Marlyn Montenegro, SIGN PAINTER [employer], 40 mg at 10/31/24 1333 hydrALAZINE (Apresoline) tablet 25 mg, 25 mg, Oral, 4x daily PRN, Casey Elkins MD levothyroxine (Synthroid, Levoxyl) tablet 88 mcg, 88 mcg, Oral, qAM AC, Travis Goncalves MD, 88 mcg at 11/01/24 0639 magnesium sulfate IVPB premix 2,000 mg, 2,000 mg, IntraVENous, PRN OR magnesium sulfate IVPB 4,000 mg, 4,000 mg, IntraVENous, PRN, Travis Goncalves MD melatonin tablet 3 mg, 3 mg, Oral, Nightly, Sharyn Brown MD, 3 mg at 10/31/242101 metoprolol tartrate (Lopressor) tablet 25 mg, 25 mg, Oral, TID, Casey Elkins MD, 25 mg at 10/31/242101 ondansetron (Zofran) injection 4 mg, 4 mg, IntraVENous, q4h PRN, Travis Goncalves MD, 4 mg at 10/30/243 polyethylene glycol (PEG) 3350 (Miralax) packet 17 g, 17 g, Oral, Daily PRN, Travis Goncalves MD potassium chloride CR (Klor-Con M10) ER tablet 40 mEq, 40 mEq, Oral, PRN OR potassium chloride (Klor-Con) packet 40 mEq, 40 mEq, Oral, PRN OR potassium chloride 40 mEq in sodium chloride 0.9 % 500 mL IVPB, 40 mEq, IntraVENous, PRN, Travis Goncalves MD QUEtiapine (SEROquel) tablet 12.5 mg, 12.5 mg, Oral, BID PRN, Elisabeth Ezzie, SIGN PAINTER - [employer], 12.5 mg at 11/01/24 0204 tiZANidine (Zanaflex) tablet 4 mg, 4 mg, Oral, TID PRN, Elisabeth Ezzie, SIGN PAINTER - [employer], 4 mg at 10/31/24 210 traZODone (Desyrel) tablet 25 mg, 25 mg, Oral, Nightly, Travis Goncalves MD, 25 mg at 10/31/242100 Physical Exam Vitals and nursing note reviewed. Constitutional: General: She is not in acute distress. Appearance: Normal appearance. She is not ill-appearing. Cardiovascular: Rate and Rhythm: Normal rate and regular rhythm. Pulses: Normal pulses. Pulmonary: Effort: Pulmonary effort is normal. Abdominal: General: Bowel sounds are normal. Neurological: Mental Status: She is alert. She is disoriented. Psychiatric: Attention and Perception: Attention normal. Mood and Affect: Mood is not anxious. Speech: Speech normal. Speech is not delayed. Behavior: Behavior is cooperative. Cognition and Memory: Cognition is impaired. Memory is impaired. Judgment: Judgment is impulsive (at times). Labs and Imaging: Recent Results (from the past 24 hours) CBC auto differential Collection Time: 11/01/24 2:45 AM Result Value Ref Range Auto WBC 7.8 3.6 - 10.7 10*3/uL RBC 4.41 3.80 - 5.20 10*6/uL Hemoglobin 13.8 11.7 - 16.0 g/dL Hematocrit 42.3 35.0 - 47.0 % MCV 95.9 77.0 - 99.0 fL MCH 31.3 26.0 - 34.0 pg MCHC 32.6 30.5 - 36.0 % RDW 13.2 11.5 - 15.0 % Platelets 313 140 - 440 10*3/uL MPV 8.4 (L) 9.0 - 12.7 fL nRBC 0.0 0.0 - 2.0 /100 WBCs Neutrophils Relative 49.5 38.0 - 82.0 % Lymphocytes Relative 31.1 15.0 - 45.0 % Monocytes Relative 13.1 (H) 5.0 - 13.0 % Eosinophils Relative 5.1 0.0 - 6.0 % Basophils Relative 0.8 0.0 - 2.0 % Immature Grans % 0.4 0.0 - 2.0 % Neutrophils Absolute 3.8 1.8 - 7.5 10*3/uL Lymphocytes Absolute 2.4 1.0 - 4.3 10*3/uL Monocytes Absolute 1.0 (H) 0.0 - 0.9 10*3/uL Eosinophils Absolute 0.4 0.0 - 0.5 10*3/uL Basophils Absolute 0.1 0.0 - 0.2 10*3/uL Immature Grans Absolute 0.0 <0.1 10*3/uL Comprehensive metabolic panel Collection Time: 11/01/24 2:45 AM Result Value Ref Range SODIUM 134 (L) 136 - 145 mmol/L POTASSIUM 3.5 3.5 - 5.1 mmol/L CHLORIDE 102 98 - 107 mmol/L CARBON DIOXIDE 23 23 - 31 mmol/L ANION GAP 9 3 - 13 mmol/L UREA NITROGEN 26 (H) 9 - 23 mg/dL CREATININE 1.01 0.57 - 1.11 mg/dL GLUCOSE 120 (H) 82 - 115 mg/dL CALCIUM 9.1 8.8 - 10.0 mg/dL AST (SGOT) 29 <34 U/L ALT 26 <30 U/L ALKALINE PHOSPHATASE 67 40 - 150 U/L ALBUMIN 3.1 (L) 3.4 - 4.8 g/dL BILIRUBIN, TOTAL 0.5 <1.2 mg/dL TOTAL PROTEIN 6.4 6.4 - 8.3 g/dL eGFR 55.7 (L) >60.0 mL/min/1.73m*2 Magnesium Collection Time: 11/01/24 2:45 AM Result Value Ref Range MAGNESIUM 1.9 1.6 - 2.6 mg/dL Lab Results Component Value Date TSH 2.48 10/17/2024 Lab Results Component Value Date [id number] 1,124 (H) 10/30/2024 No results found for: VITD25 Reviewed: allergies, previous encounters, social history, imaging, active problem lists, medications, and labs [facility] Geriatric Medicine Inpatient Consult Service Admission Date: 10/29/2024 Assessment Principal Problem: Acute heart failure with preserved ejection fraction (HFpEF) (HCC) Active Problems: Dementia (HCC) Atrial fibrillation, permanent (HCC) Debility Essential hypertension Plan Dementia --Lives at [facility] for 2 years --continue Donepezil 10mg daily --Gradual cognitive decline. Can get irritable at baseline. --MRI brain 11/27/23 - moderate chronic microvascular ischemia --10/31: anxious, agitated today wanting to go home. Recommend son visits. Treat pain. Recommend Seroquel 12.5mg BID PRN while hospitalized. Monitor response. At risk for delirium --Risk factors: pain, advanced age, sensory impairments, acute illness, high risk medications, and baseline cognitive deficits --Encourage PO intake, time up in chair, family visits, supervised ambulation, and sleep hygiene --If agitated, assess for and consider treating for pain --QTc= 462 ms --No antipsychotic unless patient is danger to self/others/treatment --If agitated, recommend Seroquel 12.5mg BID PRN --Avoid benzodiazepines and anticholinergic medications --Continue scheduled melatonin at HS --Monitor for constipation/urinary retention - last BM 10/30 --Possible medication contributions: Tizanidine, Morphine --10/31: +agitation. Continue plan. Debility --contributing factors include spinal stenosis, heart failure, COPD, Dementia --lives in LTC --PT and OT --Anticipate return to SNF/LTC at discharge --10/31: stable. Continue plan. Depression/Anxiety --Continue Lexapro 15mg daily. Recommend as outpatient lowering to 10mg daily. Can consider switching to Sertraline outpatient. --Continue Buspar 5mg BID --10/31: +anxiety. Consider increasing Buspar. Chronic pain --takes Tizanidine 4mg TID but it has been on hold at [facility] since recent hospitalization. Changed to PRN. May have contributed to confusion. -Monitor LFTs, consider adding scheduled Tylenol. --10/31: Discussed with nursing to treat pain and see if mood improves. Follow-up: will follow with you Subjective Chief Complaint: I want to go home Geriatrics consulted for functional and cognitive decline/dementia HPI- The patient is known to me. 84 y.o. year-old female with PMH of atrial fibrillation, anxiety, CHF, COPD, Dementia, Depression, HLD, HTN, Hypothyroidism, Insomnia, Pulmonary hypertension, L1 Burst fracture, spinal stenosis presented to [facility] from [facility] on 10/29 with complaints of shortness of breath. Admitted with acute heart failure, atrial fibrillation with RVR. -Recently hospitalized 10/17 - 10/19 ago for CHF, atrial fibrillation with RVR and proteus UTI. -ER visit 10/24 for altered mental status. Discharged back to facility. Interval History: Remains on telemetry. -Patient is upset and wants to go home. She doesn't feel she needs to be here any longer and feels fine. Looks at [facility] and states she is at [place]. States she does not know where she normally lives but just wants to get back there. States it is Feb and if not Feb than October. Denies pain. -Nursing reports increased agitation about wanting to go home. Review of Systems Constitutional: Negative for fatigue. HENT: Negative for congestion. Respiratory: Negative for cough and shortness of breath. Cardiovascular: Negative for chest pain and leg swelling. Gastrointestinal: Negative for abdominal pain and constipation. Genitourinary: Negative for difficulty urinating. Neurological: Positive for weakness. Psychiatric/Behavioral: Positive for confusion. Negative for dysphoric mood and sleep disturbance. The patient is nervous/anxious. Objective BP 141/83 (BP Location: Right arm, Patient Position: Lying) Pulse 89 Temp 36.4 C (97.5 F) (Temporal) Resp 16 Ht 5' 4 (1.626 m) Wt 128 lb (58.1 kg) SpO2 97% BMI 21.97 kg/m Intake/Output Summary (Last 24 hours) at 10/31/2024 1557 Last data filed at 10/31/2024 0900 Gross per 24 hour Intake 60 ml Output 500 ml Net -440 ml Wt Readings from Last 3 Encounters: 10/29/24 128 lb (58.1 kg) 10/24/24 135 lb (61.2 kg) 10/18/24 135 lb (61.2 kg) Current Facility-Administered Medications: acetaminophen (Tylenol) tablet 650 mg, 650 mg, Oral, q6h PRN OR acetaminophen (Tylenol) suppository 650 mg, 650 mg, Rectal, q6h PRN, Travis Goncalves MD apixaban (Eliquis) tablet 2.5 mg, 2.5 mg, Oral, BID, Travis Goncalves MD, 2.5 mg at 10/31/24 0916 busPIRone (Buspar) tablet 5 mg, 5 mg, Oral, BID, Travis Goncalves MD, 5 mg at 10/31/24 0916 calcium carbonate (Tums) chewable tablet 500 mg, 500 mg, Oral, PRN, Travis Goncalves MD donepezil (Aricept) tablet 10 mg, 10 mg, Oral, Nightly, Travis Goncalves MD, 10 mg at 10/30/24 2230 escitalopram (Lexapro) tablet 15 mg, 15 mg, Oral, Daily, Travis Goncalves MD, 15 mg at 10/31/24 0915 furosemide (Lasix) tablet 40 mg, 40 mg, Oral, Daily, Marlyn Montenegro, SIGN PAINTER - [employer], 40 mg at 10/31/24 1333 hydrALAZINE (Apresoline) tablet 25 mg, 25 mg, Oral, 4x daily PRN, Casey Elkins MD levothyroxine (Synthroid, Levoxyl) tablet 88 mcg, 88 mcg, Oral, qAM AC, Travis Goncalves MD, 88 mcg at 10/31/24 0622 magnesium sulfate IVPB premix 2,000 mg, 2,000 mg, IntraVENous, PRN OR magnesium sulfate IVPB 4,000 mg, 4,000 mg, IntraVENous, PRN, Travis Goncalves MD melatonin tablet 3 mg, 3 mg, Oral, Nightly, Sharyn Brown MD, 3 mg at 10/30/24 2231 metoprolol tartrate (Lopressor) tablet 25 mg, 25 mg, Oral, TID, Casey Elkins MD, 25 mg at 10/31/24 1333 ondansetron (Zofran) injection 4 mg, 4 mg, IntraVENous, q4h PRN, Travis Goncalves MD, 4 mg at 10/30/24 0213 polyethylene glycol (PEG) 3350 (Miralax) packet 17 g, 17 g, Oral, Daily PRN, Travis Goncalves MD potassium chloride CR (Klor-Con M10) ER tablet 40 mEq, 40 mEq, Oral, PRN OR potassium chloride (Klor-Con) packet 40 mEq, 40 mEq, Oral, PRN OR potassium chloride 40 mEq in sodium chloride 0.9 % 500 mL IVPB, 40 mEq, IntraVENous, PRN, Travis Goncalves MD tiZANidine (Zanaflex) tablet 4 mg, 4 mg, Oral, TID PRN, Elisabeth Ezzie, SIGN PAINTER - [employer] traZODone (Desyrel) tablet 25 mg, 25 mg, Oral, Nightly, Travis Goncalves MD, 25 mg at 10/30/24 2228 Physical Exam Vitals reviewed. Constitutional: General: She is not in acute distress. Cardiovascular: Rate and Rhythm: Normal rate. Rhythm irregular. Pulmonary: Effort: Pulmonary effort is normal. No respiratory distress. Breath sounds: Normal breath sounds. Abdominal: General: Bowel sounds are normal. There is no distension. Palpations: Abdomen is soft. Tenderness: There is no abdominal tenderness. Musculoskeletal: Right lower leg: No edema. Left lower leg: No edema. Neurological: Mental Status: She is alert. She is disoriented. Psychiatric: Attention and Perception: She is inattentive. Mood and Affect: Mood is anxious. Behavior: Behavior is cooperative. Cognition and Memory: Cognition is impaired. Memory is impaired. Labs and Imaging: Recent Results (from the past 24 hours) CBC auto differential Collection Time: 10/31/24 6:32 AM Result Value Ref Range Auto WBC 9.0 3.6 - 10.7 10*3/uL RBC 4.56 3.80 - 5.20 10*6/uL Hemoglobin 14.5 11.7 - 16.0 g/dL Hematocrit 44.3 35.0 - 47.0 % MCV 97.1 77.0 - 99.0 fL MCH 31.8 26.0 - 34.0 pg MCHC 32.7 30.5 - 36.0 % RDW 13.2 11.5 - 15.0 % Platelets 319 140 - 440 10*3/uL MPV 8.7 (L) 9.0 - 12.7 fL nRBC 0.0 0.0 - 2.0 /100 WBCs Neutrophils Relative 50.4 38.0 - 82.0 % Lymphocytes Relative 33.3 15.0 - 45.0 % Monocytes Relative 11.5 5.0 - 13.0 % Eosinophils Relative 3.8 0.0 - 6.0 % Basophils Relative 0.8 0.0 - 2.0 % Immature Grans % 0.2 0.0 - 2.0 % Neutrophils Absolute 4.5 1.8 - 7.5 10*3/uL Lymphocytes Absolute 3.0 1.0 - 4.3 10*3/uL Monocytes Absolute 1.0 (H) 0.0 - 0.9 10*3/uL Eosinophils Absolute 0.3 0.0 - 0.5 10*3/uL Basophils Absolute 0.1 0.0 - 0.2 10*3/uL Immature Grans Absolute 0.0 <0.1 10*3/uL Comprehensive metabolic panel Collection Time: 10/31/24 6:32 AM Result Value Ref Range SODIUM 135 (L) 136 - 145 mmol/L POTASSIUM 3.7 3.5 - 5.1 mmol/L CHLORIDE 104 98 - 107 mmol/L CARBON DIOXIDE 24 23 - 31 mmol/L ANION GAP 7 3 - 13 mmol/L UREA NITROGEN 24 (H) 9 - 23 mg/dL CREATININE 1.08 0.57 - 1.11 mg/dL GLUCOSE 98 82 - 115 mg/dL CALCIUM 9.5 8.8 - 10.0 mg/dL AST (SGOT) 39 (H) <34 U/L ALT 33 (H) <30 U/L ALKALINE PHOSPHATASE 75 40 - 150 U/L ALBUMIN 3.4 3.4 - 4.8 g/dL BILIRUBIN, TOTAL 0.7 <1.2 mg/dL TOTAL PROTEIN 6.8 6.4 - 8.3 g/dL eGFR 51.4 (L) >60.0 mL/min/1.73m*2 Lab Results Component Value Date TSH 2.48 10/17/2024 Lab Results Component Value Date [id number] 1,124 (H) 10/30/2024 No results found for: VITD25 Reviewed: allergies, previous encounters, active problem lists, medications, and labs [facility] [place] [facility] [place]rophysiology [place] HPI / Interval History: Clemencia Friedman has as history of Afib on OAC (failed sotalol and diltiazem at [facility] due to bradycardia, HTN, dementia, COPD who resides at SNF who presented to [facility] with decreased functional status, balance and report of SOB per [facility] at SNF. Pro-BNP elevated at 11,795. She was started on IV lasix. She was seen by [facility] cardiology 08/2024. She was admitted to [facility] 09/2024 with HF and Afib and she was diuresed and her medications were adjusted. Plan is to follow with [facility] cards as OP. Today, she states she is ready to get out of the hospital. She states she wants to go home, but is unsure where that is. She denies CP, SOB, PND, orthopnea, edema, palpitations, syncope. Assessment/Plan HF NYHA Class [] I [] II [] III [] IV [x]Unable to assess [] N/A Permanent, nonvalvular Afib - remains in rate controlled Afib today - continue metoprolol tartrate 25 mg po TID - continue Eliquis 2.5 mg po BID HFpEF, Stage C, difficult to assess class due to dementia, EF 62% per TTE 09/2024 - daily weight not documented - I&O -2L (if accurate) - no current HF symptoms and appears euvolemic on exam - stop IV lasix and start lasix 40 mg po daily - no clear benefit for SGLT2i HTN, controlled - continue metoprolol Dementia/poor functional status/insomnia - lives in memory care unit SNF - consider palliative care evaluation Cardiology Discharge/Sign-off Recommendations Cardiology medications to continue: [x] All cardiac medications as ordered currently [] Admission cardiac medications [] Please start the following medications on discharge: [] Please stop the following medications on discharge: Followup testing recommended as an outpatient: [] To be arranged by Inpatient provider/PCP [] Will be arranged by Cardiology Cardiology followup: [] Not needed [] Recommend primary service arrange f/u with patient's outpatient sign hanger 1-2 wks. [] Recommended; unable to arrange at this time, will arrange post-discharge [x] Arranged as follows: Dr. Conner 11/19/2024 at 1:00pm If there are any questions/concerns, please contact the covering provider. If no answer by Secure Chat, please call the cardiology office to obtain appropriate covering [employer]/physician. Medications: apixaban, 2.5 mg, Oral, BID busPIRone, 5 mg, Oral, BID donepezil, 10 mg, Oral, Nightly escitalopram, 15 mg, Oral, Daily furosemide, 40 mg, IntraVENous, BID levothyroxine, 88 mcg, Oral, qAM AC melatonin, 3 mg, Oral, Nightly metoprolol tartrate, 25 mg, Oral, TID traZODone, 25 mg, Oral, Nightly Infusion Medications: Physical Examination: Vitals: 10/31/24 0303 10/31/24 0620 10/31/24 0846 10/31/24 1114 BP: 115/61 117/64 143/76 BP Location: Right arm Right arm Right arm Patient Position: Sitting Lying Lying Pulse: 91 97 87 Resp: 18 16 16 Temp: 36.1 C (97 F) 36.1 C (97 F) 36.4 C (97.6 F) TempSrc: Temporal Temporal Temporal SpO2: 95% 97% 93% 95% Weight: Height: Intake/Output Summary (Last 24 hours) at 10/31/2024 1146 Last data filed at 10/31/2024 0900 Gross per 24 hour Intake 60 ml Output 500 ml Net -440 ml Patient Vitals for the past 168 hrs: Weight Weight Method 10/29/24 0929 128 lb (58.1 kg) Stated Physical Exam Vitals reviewed. Constitutional: Appearance: Normal appearance. HENT: Head: Normocephalic and atraumatic. Mouth/Throat: Mouth: Mucous membranes are moist. Pharynx: Oropharynx is clear. Neck: Vascular: No JVD. Cardiovascular: Rate and Rhythm: Normal rate. Rhythm irregularly irregular. Heart sounds: Normal heart sounds. Pulmonary: Effort: Pulmonary effort is normal. Breath sounds: Normal breath sounds. Abdominal: General: Bowel sounds are normal. Palpations: Abdomen is soft. Tenderness: There is no abdominal tenderness. Musculoskeletal: Right lower leg: No edema. Left lower leg: No edema. Skin: General: Skin is warm and dry. Neurological: Mental Status: She is alert. Mental status is at baseline. Psychiatric: Mood and Affect: Mood normal. Speech: Speech normal. Cognition and Memory: Cognition is impaired. Memory is impaired. Laboratory Tests: TROPONIN I, CONVENTIONAL SENSITIVITY CK Date Value Ref Range Status 04/10/2024 29 (L) 30 - 170 U/L Final TROPONIN I Date Value Ref Range Status 04/10/2024 <0.012 <0.034 ng/mL Final TROPONIN I, HIGH SENSITIVITY Troponin HS Serial Baseline Date Value Ref Range Status 10/29/2024 18 (H) <=14 ng/L Final Comment: In individuals presenting with symptoms > 2h, a baseline troponin <= 5 ng/L suggests acute cardiac injury is unlikely and further serial testing is generally not indicated. 10/29/2024 19 (H) <=14 ng/L Final Comment: In individuals presenting with symptoms > 2h, a baseline troponin <= 5 ng/L suggests acute cardiac injury is unlikely and further serial testing is generally not indicated. 10/17/2024 76 (H) <=14 ng/L Final Comment: In individuals presenting with symptoms > 2h, a baseline troponin <= 5 ng/L suggests acute cardiac injury is unlikely and further serial testing is generally not indicated. 10/17/2024 82 (H) <=14 ng/L Final Comment: In individuals presenting with symptoms > 2h, a baseline troponin <= 5 ng/L suggests acute cardiac injury is unlikely and further serial testing is generally not indicated. 2h Troponin HS (Serial 2nd Troponin) Date Value Ref Range Status 10/29/2024 19 (H) <=14 ng/L Final Comment: Rising or falling troponin delta below 2 ng/L as compared to baseline value suggests that acute cardiac injury is unlikely. 10/17/2024 81 (H) <=14 ng/L Final Comment: Rising or falling troponin delta between 2 - 15 ng/L as compared to baseline value requires a 3rd serial troponin 10/17/2024 83 (H) <=14 ng/L Final Comment: Rising or falling troponin delta below 2 ng/L as compared to baseline value suggests that acute cardiac injury is unlikely. No results found for: TROPDELTBASE No results found for: TROPHS3 No results found for: TROPDELTSEC Recent Labs 10/29/24 1022 10/29/24 1626 10/30/24 0355 10/31/24 0632 NA 138 139 137 135* K 4.0 3.9 3.4* 3.7 CL 108* 105 105 104 CO2 21* 25 20* 24 BUN 18 19 19 24* CREATININE 1.06 1.17* 1.04 1.08 Recent Labs 10/30/24 0355 10/31/24 0632 WBC 7.8 9.0 HGB 13.4 14.5 HCT 41.2 44.3 MCV 97.9 97.1 PLT 315 319 Recent Labs 10/29/24 1022 BNP 11,795* No results for input(s): TRIG, HDL, LDLCALC, CHOL in the last 72 hours. No results found for: LDLCHOLESTER Lab Results Component Value Date TSH 2.48 10/17/2024 EF BP Date Value Ref Range Status 10/18/2024 62 55 - 100 % Final 10/17/24 TRANSTHORACIC ECHOCARDIOGRAM (TTE) COMPLETE (CONTRAST/BUBBLE/3D PRN) 10/18/2024 2:37 PM (Final) Interpretation Summary Left Ventricle: Left ventricle size is normal. Mildly increased wall thickness. Mass index 2D is 129.3 g/m2. Findings consistent with mild concentric hypertrophy. Normal left ventricular systolic function. EF by 2D Simpsons Biplane is 62%. Normal wall motion. Right Ventricle: Right ventricle is moderately dilated. Normal systolic function. Aortic Valve: Trileaflet. Mild (1+) regurgitation with an eccentrically directed jet. No stenosis. Tricuspid Valve: No leaflet thickening. Moderate (2+) regurgitation. Moderately elevated RVSP. RVSP is 47 mmHg. Left Atrium: Left atrium is moderately dilated. LA Vol Index A/L is 47 mL/m2. Right Atrium: Right atrium is moderately dilated. IVC/SVC: IVC diameter is dilated and decreases less than 50% during inspiration; therefore the estimated right atrial pressure is elevated (~15 mmHg). Signed by: Casey Eller on 10/18/2024 2:37 PM Other reports reviewed: Cardiac Tests: Telemetry findings reviewed: Afib (70-100) EF BP Date Value Ref Range Status 10/18/2024 62 55 - 100 % Final ZULAY Zepeda CNP Date Of Service 10/31/2024 Hospitalist Progress Note 10/31/2024 Subjective: Admit Date: 10/29/2024 PCP: Kathi Juarez MD Room#: B2-245/B2-245 A Interval History: Doing better. Pleasantly confused. Weak. No cp, sob, cough, n/v, f/c. Tolerating diet. Case and plan discussed with patient and PAOLA Bernard, separately via secure chat. All questions answered. Adult diet Regular; Low Sodium (2 gm) 24HR INTAKE/OUTPUT: Intake/Output Summary (Last 24 hours) at 10/31/2024 1139 Last data filed at 10/31/2024 0900 Gross per 24 hour Intake 60 ml Output 500 ml Net -440 ml Past Medical History: Past Medical History: Diagnosis Date Afib (CMS/HCC) (HCC) Anxiety CHF (congestive heart failure) (HCC) COPD (chronic obstructive pulmonary disease) (HCC) Dementia (HCC) Depression Hyperlipidemia Hypertension Hypothyroid Insomnia Pulmonary HTN (HCC) LABS: CBC: Recent Labs 10/30/24 0355 10/31/24 0632 WBC 7.8 9.0 RBC 4.21 4.56 HGB 13.4 14.5 HCT 41.2 44.3 MCV 97.9 97.1 RDW 13.4 13.2 PLT 315 319 BMP: Recent Labs 10/29/24 1626 10/30/24 0355 10/31/24 0632 NA 139 137 135* K 3.9 3.4* 3.7 CL 105 105 104 CO2 25 20* 24 BUN 19 19 24* CREATININE 1.17* 1.04 1.08 GLUCOSE 145* 126* 98 CALCIUM 9.7 9.3 9.5 ANIONGAP 9 12 7 LIVER PROFILE: Recent Labs 10/29/24 1022 10/31/24 0632 AST 37* 39* ALT 37* 33* BILITOT 0.6 0.7 ALKPHOS 84 75 PROT 7.3 6.8 PT/INR: No results for input(s): PROTIME, INR in the last 72 hours. CARDIAC ENZYMES: No results for input(s): TROPONINI in the last 72 hours. Procalcitonin: No results found for: PROCAL COVID-19 PCR: No results for input(s): COVID19 in the last 72 hours. Objective: Vitals: BP 143/76 (BP Location: Right arm, Patient Position: Lying) Pulse 87 Temp 36.4 C (97.6 F) (Temporal) Resp 16 Ht 5' 4 (1.626 m) Wt 128 lb (58.1 kg) SpO2 95% BMI 21.97 kg/m Pulse Ox: SpO2 Av.4 % Min: 87 % Max: 97 % Supplemental O2: O2 Flow Rate (L/min): 1 L/min Physical Exam Vitals and nursing note reviewed. Constitutional: General: She is not in acute distress. HENT: Head: Normocephalic. Eyes: Extraocular Movements: Extraocular movements intact. Conjunctiva/sclera: Conjunctivae normal. Cardiovascular: Rate and Rhythm: Normal rate. Rhythm irregular. Pulses: Normal pulses. Heart sounds: Murmur heard. Pulmonary: Effort: Pulmonary effort is normal. Comments: Coarse breath sounds bilaterally Abdominal: General: Abdomen is flat. Bowel sounds are normal. There is no distension. Palpations: Abdomen is soft. Tenderness: There is no abdominal tenderness. Musculoskeletal: Cervical back: Normal range of motion. Right lower leg: No edema. Left lower leg: No edema. Skin: General: Skin is warm. Capillary Refill: Capillary refill takes less than 2 seconds. Neurological: General: No focal deficit present. Mental Status: She is alert. Mental status is at baseline. She is disoriented. Psychiatric: Mood and Affect: Mood normal. Medications: Scheduled PRN apixaban, 2.5 mg, Oral, BID busPIRone, 5 mg, Oral, BID donepezil, 10 mg, Oral, Nightly escitalopram, 15 mg, Oral, Daily furosemide, 40 mg, IntraVENous, BID levothyroxine, 88 mcg, Oral, qAM AC melatonin, 3 mg, Oral, Nightly metoprolol tartrate, 25 mg, Oral, TID traZODone, 25 mg, Oral, Nightly PRN medications: acetaminophen OR acetaminophen, calcium carbonate, hydrALAZINE, magnesium sulfate OR magnesium sulfate, ondansetron, polyethylene glycol (PEG) 3350, potassium chloride CR OR potassium chloride OR potassium chloride, prochlorperazine, tiZANidine Continuous Assessment HFpEF Afib Dementia HTN Hypothyroidism Depression Anxiety disorder COPD Plan Continue to monitor on telemetry, IV diuresis-likely change to oral, I/Os and daily weights, Cardiology and Geriatrics following, will ask Palliative Care to assist with GOC, PT/OT, continue eliquis, follow up labs, discharge planning, see orders. - am labs, replace lytes prn - PT/OT/CM/SW - delirium precautions: increase activity - DVT prophylaxis: encourage ambulation and apixaban Advance Directive: Full Code Anticipated Discharge - Date - 11/01 - Location - Skilled Facility/ICF - Pending the following - clinical improvement, completion of work up, adequate diuresis and when OK with consultants Total time spent (which include face to face and non face to face encounters) : 45 minutes Toxic drug monitoring/narrow therapeutic index drug monitoring : # Drug name : lasix and apixaban # Route administered : IV and oral # Method of monitoring : daily BMP and daily CBC Extended Emergency Contact Information Primary Emergency Contact: ElderReaganParris Mobile Relation: Son Secondary Emergency Contact: ElderJaylan Mobile Relation: Son Preferred language: Salvadorean Roll Cutter needed? No Ag Trent MD Division of Hospitalist Medicine [facility] Nutrition rescreen complete. Pt assigned a level one for nutrition care. Images from the original note were not included. PHYSICAL THERAPY [facility] Initial Evaluation Name/MRN: Clemencia Friedman ([id number]) Evaluation Date: 10/30/2024 Date of : 1940 Admission Date: 10/29/2024 9:29 AM Age: 84 y.o. Room/Bed: B2-245/B2-245 A Discharge Recommendation: Alf Facility Other: TBD at next level of care Assessment IMPRESSION: Pt presents with decreased functional mobility, decreased strength, decreased safety awareness, decreased endurance and impaired balance. Pt has decreased standing balance, poor activity tolerance, decreased safety awareness and weakness requiring physical assist of 1 person in order to safely complete minimal OOB mobility placing her at a high risk of falling. Pt could benefit from skilled PT in order to address her decreased functional mobility, strength, balance and safety. Pt has medical history as listed below that that contributes to her clinical presentation, including dementia. At baseline patient is functionally independent with a FWW. Currently patient is unsafe to return to her prior level of supervision due to her increased need for assist and fall risks with mobility. Admitting Diagnosis: Pt admitted with N/V and found to have acute decompensated heart failure and Afib with RVR. Prognosis: good Performance Deficits /Impairments: Increased Pain, Decreased Functional Mobility, Decreased ADL status, Decreased Strength, Decreased Safety Awareness, Decreased Endurance, Decreased Balance, and Decreased Cognition Decision Making: Medium Complexity Subjective Patient pleasantly confused and agreeable to therapy session this date. Per RN patient okay for therapy, requesting to stop mobility with HR >120 bpm. Observation: tele intact Vitals HR 101 - 124 bpm Pain: Lange-Pride Pain Ratin = Hurts little more Pain Location: B LE Past Medical History: Past Medical History: Diagnosis Date Afib (CMS/HCC) (HCC) Anxiety CHF (congestive heart failure) (HCC) COPD (chronic obstructive pulmonary disease) (HCC) Dementia (HCC) Depression Hyperlipidemia Hypertension Hypothyroid Insomnia Pulmonary HTN (HCC) Past Surgical History: History reviewed. No pertinent surgical history. Admission Diagnosis: Patient Active Problem List Diagnosis Date Noted Acute decompensated heart failure (HCC) 10/29/2024 New onset atrial fibrillation (HCC) 10/17/2024 Lumbago 04/12/2024 Low back pain without sciatica, unspecified back pain laterality, unspecified chronicity 04/10/2024 Cognitive communication deficit 12/22/2023 Dementia (HCC) 08/02/2022 Medical Precautions: No active isolations Proper PPE donned/doffed in accordance with facility standards. Fall Risk: Eckert Fall Risk Score: 60 (High Risk) Precautions/Restrictions: N/A Family/Caregiver Present: none Overall Cognitive Status: Exceptions - Following commands: follows one step commands consistently - Attention span: attends with cues to redirect - Memory: decreased recall of recent events and decreased short term memory - Safety judgement: decreased awareness of need for assistance and decreased awareness of need for safety - Problem solving: assistance required to generate solutions, assistance required to implement solutions, assistance required to identify errors made, assistance required to correct errors made, and decreased awareness of errors - Insights: decreased awareness of deficits - Initiation: requires cues for some - Sequencing: requires cues for some - h/o dementia Overall Orientation Status: Oriented to Person, Disoriented to Situation, Disoriented to Time, and Disoriented to Place - pt unable to recall orientation answers ~5 minutes after therapist reoriented patient Vision: No Visual Deficits Hearing: impaired Social/Functional History Patient admitted from [facility] . Assistive Equipment: front wheeled walker and wheelchair - manual Prior Level of Function Prior Level of ADL Function: Independent Prior Level of Mobility: Independent; Device: Front wheeled walker Prior Level of Transfers: Independent Objective Lower Extremity Assessment AROM: WFL Strength: Pt demonstrates appropriate B LE and quad strength in order to safely participate in OOB mobility, generalized weakness noted Bed Mobility: Supine to sit: SBA Sit to supine: SBA Scooting: SBA Denies dizziness with positional changes. Patients HR 101 - 112 in supine, increased to 109 - 116 in sitting. Transfers Sit to stand: Min Assist, to FWW from EOB Stand to sit: Min Assist Lateral: Min Assist, with FWW for lateral stepping EOB 2 ft x 2 trials Denies dizziness on initial stance. Cues for hand placement on ascent and descent to improve safety. Patient completed lateral stepping for 2 trials with Dev for stability, distance limited due to HR reaching 124 bpm and RN requested to limit activity if HR reached 120 bpm. Ambulation NT away from EOB due to HR. Outcome Measures AM-PAC How much HELP from another person do you currently need Turning from your back to your side while in a flat bed without using bedrails?: A Little Moving from lying on your back to sitting on the side of a flat bed without using bedrails?: A Little Moving to and from a bed to a chair (including a wheelchair)?: A Little Standing up from a chair using your arms (wheelchair or bedside chair)?: A Little Walking in a hospital room?: A Little Stair climbing assessed?: No AM-PAC Inpatient Mobility Raw Score (No Stairs) : 15 [facility] Score: Static standing (1 or more minutes) Plan Pt would benefit from skilled acute PT services to address Strengthening, Gait Training, Balance Training, Self-Care/ADL Training, Functional Mobility Training, Endurance Training, Safety Education and Training, Equipment Evaluation/Education, Cognitive Reorientation, Home Management Training, and Patient/Caregiver Training. Frequency: 7 visits Barriers: Pain, Confusion, Cognitive deficit, and increased HR Safety/Education Safety Safety Devices in place: All fall risk precautions in place, call light within reach, left in bed, gait belt, patient at risk for falls, nurse notified, and no alarms engaged upon entry Restraints: N/A Education Education Given To: patient Education Provided: PT Role, PT Goals, Plan of Care, Transfer Training, Orientation, Equipment, Fall Prevention Education, Discharge Recommendations, and Benefits of Increasing Activity Education Method: Verbal, Demonstration, and Teach Back Barriers to Learning: Cognition Education Outcome: Verbalized Understanding, Demonstrated Understanding, and Continued Education Needed Goals Patient Stated Goal: Patient states she would like to get out of bed. Encounter Problems Encounter Problems (Active) Balance Patient will maintain dynamic standing balance for 5 minutes with modified independence in order to demonstrate decreased risk of falling. Start: 10/30/24 Expected End: 11/06/24 Exercise Patient will complete lower extremity exercises for 1-2 sets / 10 reps in order to improve strength and activity tolerance for mobility. Start: 10/30/24 Expected End: 11/06/24 Mobility Patient will ambulate 100 feet with modified independence and rolling walker in order to improve safety and independence with mobility. Start: 10/30/24 Expected End: 11/06/24 Transfers Patient will perform bed mobility with modified independence in order to improve independence and prepare for out of bed mobility. Start: 10/30/24 Expected End: 11/06/24 Patient will complete functional transfers with rolling walker with modified independence in order to prepare for ambulation. Start: 10/30/24 Expected End: 11/06/24 Therapy Time Individual Co-Treatment Co-Evaluation Time In 1050 Time Out 1105 Minutes 15 Taylor Barajas PT Patient's Physical Therapy Plan of Care supervision is transferred to a [facility] Physical Therapist. Goals and/or treatment plan was established in collaboration with patient/family/other representatives. Hospitalist Progress Note 10/30/2024 Subjective: Admit Date: 10/29/2024 PCP: Kathi Juarez MD Room#: B2-245/B2-245 A Interval History: Please also see H&P done by Dr Goncalves earlier today. She is weak. Complains of left leg cramping and pain and difficulty using although test of motor function appears intact. No n/v, f/c. She has some SOB. No cp, cough. Case and plan discussed with patient and PALOA Bernard, separately via secure chat. All questions answered. Adult diet Regular; Low Sodium (2 gm) 24HR INTAKE/OUTPUT: Intake/Output Summary (Last 24 hours) at 10/30/2024 1054 Last data filed at 10/30/2024 0845 Gross per 24 hour Intake 120 ml Output 1625 ml Net -1505 ml Past Medical History: Past Medical History: Diagnosis Date Afib (CMS/HCC) (HCC) Anxiety CHF (congestive heart failure) (HCC) COPD (chronic obstructive pulmonary disease) (HCC) Dementia (HCC) Depression Hyperlipidemia Hypertension Hypothyroid Insomnia Pulmonary HTN (HCC) LABS: CBC: Recent Labs 10/30/24 0355 WBC 7.8 RBC 4.21 HGB 13.4 HCT 41.2 MCV 97.9 RDW 13.4 PLT 315 BMP: Recent Labs 10/29/24 1022 10/29/24 1626 10/30/24 0355 NA 138 139 137 K 4.0 3.9 3.4* CL 108* 105 105 CO2 21* 25 20* BUN 18 19 19 CREATININE 1.06 1.17* 1.04 GLUCOSE 98 145* 126* CALCIUM 9.7 9.7 9.3 ANIONGAP 9 9 12 LIVER PROFILE: Recent Labs 10/29/24 1022 AST 37* ALT 37* BILITOT 0.6 ALKPHOS 84 PROT 7.3 PT/INR: No results for input(s): PROTIME, INR in the last 72 hours. CARDIAC ENZYMES: No results for input(s): TROPONINI in the last 72 hours. Procalcitonin: No results found for: PROCAL COVID-19 PCR: No results for input(s): COVID19 in the last 72 hours. Objective: Vitals: BP (!) 172/94 (BP Location: Right arm, Patient Position: Lying) Pulse 95 Temp 36.2 C (97.1 F) (Temporal) Resp 22 Ht 5' 4 (1.626 m) Wt 128 lb (58.1 kg) SpO2 94% BMI 21.97 kg/m Pulse Ox: SpO2 Av.1 % Min: 92 % Max: 100 % Supplemental O2: Physical Exam Vitals and nursing note reviewed. Constitutional: General: She is not in acute distress. HENT: Head: Normocephalic and atraumatic. Mouth/Throat: Pharynx: Oropharynx is clear. Eyes: Extraocular Movements: Extraocular movements intact. Conjunctiva/sclera: Conjunctivae normal. Pupils: Pupils are equal, round, and reactive to light. Cardiovascular: Rate and Rhythm: Normal rate. Rhythm irregular. Pulses: Normal pulses. Heart sounds: Murmur heard. Pulmonary: Effort: Pulmonary effort is normal. Breath sounds: Rales present. Abdominal: General: Abdomen is flat. Bowel sounds are normal. There is no distension. Palpations: Abdomen is soft. Tenderness: There is no abdominal tenderness. There is no rebound. Musculoskeletal: Cervical back: Neck supple. Right lower leg: No edema. Left lower leg: No edema. Skin: General: Skin is dry. Capillary Refill: Capillary refill takes less than 2 seconds. Neurological: Mental Status: She is alert. Mental status is at baseline. She is disoriented. Motor: Weakness present. Psychiatric: Mood and Affect: Mood normal. Medications: Scheduled PRN apixaban, 2.5 mg, Oral, BID busPIRone, 5 mg, Oral, BID donepezil, 10 mg, Oral, Nightly escitalopram, 15 mg, Oral, Daily levothyroxine, 88 mcg, Oral, qAM AC melatonin, 3 mg, Oral, Nightly metoprolol tartrate, 25 mg, Oral, BID tiZANidine, 4 mg, Oral, TID traZODone, 25 mg, Oral, Nightly PRN medications: acetaminophen OR acetaminophen, calcium carbonate, hydrALAZINE, magnesium sulfate OR magnesium sulfate, ondansetron, polyethylene glycol (PEG) 3350, potassium chloride CR OR potassium chloride OR potassium chloride, prochlorperazine Continuous Assessment Volume overload HFpEF Afib Dementia HTN Hypothyroidism Depression Anxiety disorder COPD Plan Continue to monitor on telemetry, IV diuresis, I/Os and daily weights, Cardiology and Geriatrics evaluations, PT/OT, eliquis, follow up labs, discharge planning, see orders. - am labs, replace lytes prn - PT/OT/CM/SW - delirium precautions: increase activity - DVT prophylaxis: encourage ambulation and apixaban Advance Directive: Full Code Anticipated Discharge - Date - 11/01-11/02 - Location - Skilled Facility/[facility] - Pending the following - clinical improvement, completion of work up, adequate diuresis and when OK with Cardiology Total time spent (which include face to face and non face to face encounters) : 47 minutes Toxic drug monitoring/narrow therapeutic index drug monitoring : # Drug name : apixaban # Route administered : oral # Method of monitoring : daily CBC Extended Emergency Contact Information Primary Emergency Contact: Parris Friedman Mobile Relation: Son Secondary Emergency Contact: Jaylan Friedman Mobile Relation: Son Preferred language: Salvadorean Roll Cutter needed? No Ag Trent MD Division of Hospitalist Medicine [facility] documented in this encounter [facility] 11-01-2024 Note Formatting of this n ote might be different from the original. [facility] [email or web address] per [facility] request. Await review and response regarding ability to accept. TCC notified. [facility] 11-01-2024 Note Formatting of this n ote might be different from the original. Sent updated notes to return back to [facility] via [facility] per [facility] request. Await review and response regarding ability to accept. TCC notified. T [facility] 11-01-2024 Plan of care note Problem: Knowledge Deficit Goal: Patient/family/caregiver demonstrates understanding of disease process, treatment plan, medications, and discharge instructions 11/01/2024 0558 by Odette Anand RN Outcome: Progressing 11/01/2024 0509 by Odette Anand RN Outcome: Progressing Problem: Potential for Compromised Skin Integrity Goal: Skin Integrity is Maintained or Improved 11/01/2024 0558 by Odtete Anand RN Outcome: Progressing 11/01/2024 0509 by Odette Anand RN Outcome: Progressing Goal: Nutritional status is improving 11/01/2024 0558 by Odette Anand RN Outcome: Progressing 11/01/2024 0509 by Odette Anand RN Outcome: Progressing Problem: Urinary Incontinence Goal: Perineal skin integrity is maintained or improved 11/01/2024 0558 by Odette Anand RN Outcome: Progressing 11/01/2024 0509 by Odette Anand RN Outcome: Progressing Problem: Potential for Falls Goal: I will remain free of falls 11/01/2024 0558 by Odette Anand RN Outcome: Progressing 11/01/2024 0509 by Odette Anand RN Outcome: Progressing Problem: Discharge Barriers Goal: My discharge needs are met 11/01/2024 0558 by Odette Anand RN Outcome: Progressing 11/01/2024 0509 by Odette Anand RN Outcome: Progressing T [facility] 11-01-2024 Plan of care note Problem: Knowledge Deficit Goal: Patient/family/caregiver demonstrates understanding of disease process, treatment plan, medications, and discharge instructions Outcome: Progressing Problem: Potential for Compromised Skin Integrity Goal: Skin Integrity is Maintained or Improved Outcome: Progressing Goal: Nutritional status is improving Outcome: Progressing Problem: Urinary Incontinence Goal: Perineal skin integrity is maintained or improved Outcome: Progressing Problem: Potential for Falls Goal: I will remain free of falls Outcome: Progressing Problem: Discharge Barriers Goal: My discharge needs are met Outcome: Progressing [facility] 10-31-2024 Consult note Associated Order (s): IP CONSULT TO PALLIATIVE CARE Images from the original note were not included. Palliative Care Initial Consult Chief Complaint: Sommer Friedman is a 84 y.o. female with chief complaint of tachycardia. Palliative Care is actively following. Assessment/Plan Goals of Care -Full Code -pt pleasantly confused, would include NOK in GOC discussions/decision making but can try to include pt as much as possible -NOK: turner Huitron [phone], Jaylan [phone]--> no paperwork on chart but kaushal Huitron shares he thinks Jaylan is medical POA -goals of care: For patient to get out of the hospital, ongoing GOC discussions -PROJECT MANAGEMENT ENGINEER: Patient residing at [facility] -see subjective for details of conversation Dementia -Geriatrics consulted -pt with gradual cognitive decline, irritable at baseline gets -A&Ox2 during exam -resides at [facility] ECF -On Aricept Anxiety Agitation Depression -BuSpar BID -Lexapro -PRN seroquel Afib HFpEF -Cardiology following -BNP 11,795 -ECHO--> Findings consistent with mild concentric hypertrophy. Normal left ventricular systolic function. EF by 2D Simpsons Biplane is 62% -Eliquis, metoprolol -transition IV lasix to PO today Debility -resides at [facility] -PT/OT rec SNF -Uses walker and wheelchair -2nd admission since Sep 2024 Palliative Care Encounter -Code Status: Full Code - will continue to follow for ongoing monitoring of progression of Pain, Anxiety, and Agitation as well as for appropriateness for hospice care due to CHF and Dementia PC Time Stamp: Total of 75 minutes spent on this encounter including Chart review, Patient visit and exam, Documentation in EHR, Care coordination, Communicating with primary attending or other consultants, Counseling and educating patient/family/caregiver, and Independently interpreting results and communicating results to patient/family/caregiver. Discharge planning: Ready for discharge from Palliative Care perspective, no follow-up needed Patient meets criteria for general inpatient hospice care: No Palliative Care IDT members involved: None Discussed the plan of care with the other interdisciplinary team (IDT) members of the Palliative Care and Hospice teams and Patient, Family, Primary Attending, and Floor Nurse. Subjective: Subjective/Events Sommer Friedman is a 84 y.o. female with PMH A-fib, anxiety, CHF, COPD, dementia, depression, HTN, hypothyroidism. She presented to ED from nursing facility due to rapid irregular heart rate. Patient also had 2 episodes of vomiting and diarrhea. Was evaluated at [place] and found to have elevated BNP. Was given some diuretics and referred to [facility] for admission for A-fib RVR and CHF. This is patient's second admission since September 2024. Palliative care consulted for goals of care. Upon assessment today, patient is sitting up in bed awake. She is A&Ox2. Pleasantly confused. Wishing to leave the hospital soon. On room air. Denies shortness of breath. Denies pain during exam. Last documented BM 10/29. [facility] discussions: Met with patient at bedside. Introduced self and role and provided medical updates. Patient shares goals to get out of the hospital and return to facility. She states that she does not think she has HCPOA. Says I can call her sons for further information. Discussed CODE STATUS. Patient shares that she does not think she would want ventilator support. Shares she wouldn't want to just be laying around without quality of life. Unsure her wishes regarding CPR. Encouraged her to discuss this with her sons. All questions answered. -Called patient's son Parris. Introduced self and role and provided medical updates. Parris shares that he thinks his brother Jaylan is medical POA and that he is financial POA. He shares that pt used to green party a lot back in the day and that he and brother didn't really have close relationship with her. State that given the circumstances and her dementia, they are willing to help her out now. He says that the nursing facility had recently discussed code status with them, and they plan to visit pt this weekend to further discuss. Do not feel comfortable making decisions before talking with her. I do share that pt told me that she was unsure about CPR & stated she would likely not want vent. Discuss the difference between full code, DNR-CCA and DNR-FULLING MILL OPERATOR. Encourage him and his brother to think about what would be quality of life for patient. He verbalizes understanding & is appreciative of call. All questions answered. Pain Assessment No pain Palliative Care Assessments: Goals of care: Continue Current Management and Improve or Maintain Function/Quality of Life Advanced Directives: No Known Advance Directive Functional Assessment: PPS 60% amb reduced; can't do normal housework/sig disease; occ assistance; normal or reduced intake; full LOC or confusion Prognosis: depends upon goals of care and uncertain at this time Spiritual Assessment: No spiritual distress identified Bereavement and Grief: Grief Issues Not Identified PDMP/OARRS Reviewed: Yes-oxycodone 5 mg #30(5) last filled 04/12/24 Social history: Marital status: Children: 2 adult child(essence) Living status: [facility] Work history: Unknown status: No Uatsdin maria fernanda: Religious ROS: See palliative care ROS/ESAS below; All other systems were reviewed and are negative. Yeoman Symptom Assessment Score Yeoman Score Pain Score (if non-verbal, add .FLACC below) 0 Tiredness Score 2 Nausea Score 0 Depression Score 0 Anxiety Score 4 Drowsiness Score 0 Anorexia Score (0= eating well, 10= not eating) 5 Wellbeing Score (10= worst sense of well-being) 5 Constipation 0 Dyspnea Score (0= no shortness of breath) 0 Family Meeting: Participants: none held Family meeting was held to discuss:N/A Past Medical History: Diagnosis Date Afib (CMS/HCC) (HCC) Anxiety CHF (congestive heart failure) (HCC) COPD (chronic obstructive pulmonary disease) (HCC) Dementia (HCC) Depression Hyperlipidemia Hypertension Hypothyroid Insomnia Pulmonary HTN (HCC) History reviewed. No pertinent surgical history. No family history on file. Unable to obtain family history due to dementia Allergies Allergen Reactions Doxycycline Other Reaction(s): Not available Gabapentin Propoxyphene Objective: BP 97/55 Pulse 87 Temp 37 C (98.6 F) (Temporal) Resp 14 Ht 5' 4 (1.626 m) Wt 128 lb (58.1 kg) SpO2 94% BMI 21.97 kg/m Physical Exam Vitals reviewed. HENT: Head: Normocephalic. Nose: Nose normal. Cardiovascular: Rate and Rhythm: Normal rate. Rhythm irregular. Pulses: Normal pulses. Heart sounds: Normal heart sounds. Abdominal: General: Bowel sounds are normal. There is no distension. Palpations: Abdomen is soft. Tenderness: There is no abdominal tenderness. Musculoskeletal: Right lower leg: No edema. Left lower leg: No edema. Skin: General: Skin is warm and dry. Neurological: Mental Status: She is alert. She is disoriented. Psychiatric: Cognition and Memory: Cognition is impaired. Memory is impaired. Medication information: 24-hour PRN meds received: None Results/Verification of Data Review Objective data reviewed (must include dates reviewed for labs, imaging reports and other specialty notes): Labs, echo, CXR, records, medication use, vitals, and chart reviewed on 10/31/24 Data in Support of Terminal Illness: Is patient hospice appropriate? TBD Transition Note Initiated: yes ZULAY Noyola CNP Cosigned by Rohini Ferro MD at 11/01/2024 11:36 AM EDT [employer] Work Phone: 10-31-2024 Consult note Associated Order (s): IP CONSULT TO PALLIATIVE CARE Images from the original note were not included. Palliative Care Initial Consult Chief Complaint: Sommer Friedman is a 84 y.o. female with chief complaint of tachycardia. Palliative Care is actively following. Assessment/Plan Goals of Care -Full Code -pt pleasantly confused, would include NOK in GOC discussions/decision making but can try to include pt as much as possible -NOK: turner Huitron [phone], Jaylan [phone]--> no paperwork on chart but kaushal Huitron shares he thinks Jaylan is medical POA -goals of care: For patient to get out of the hospital, ongoing GOC discussions -PROJECT MANAGEMENT ENGINEER: Patient residing at [facility] -see subjective for details of conversation Dementia -Geriatrics consulted -pt with gradual cognitive decline, irritable at baseline gets -A&Ox2 during exam -resides at [facility] ECF -On Aricept Anxiety Agitation Depression -BuSpar BID -Lexapro -PRN seroquel Afib HFpEF -Cardiology following -BNP 11,795 -ECHO--> Findings consistent with mild concentric hypertrophy. Normal left ventricular systolic function. EF by 2D Simpsons Biplane is 62% -Eliquis, metoprolol -transition IV lasix to PO today Debility -resides at [facility] -PT/OT rec SNF -Uses walker and wheelchair -2nd admission since Sep 2024 Palliative Care Encounter -Code Status: Full Code - will continue to follow for ongoing monitoring of progression of Pain, Anxiety, and Agitation as well as for appropriateness for hospice care due to CHF and Dementia PC Time Stamp: Total of 75 minutes spent on this encounter including Chart review, Patient visit and exam, Documentation in EHR, Care coordination, Communicating with primary attending or other consultants, Counseling and educating patient/family/caregiver, and Independently interpreting results and communicating results to patient/family/caregiver. Discharge planning: Ready for discharge from Palliative Care perspective, no follow-up needed Patient meets criteria for general inpatient hospice care: No Palliative Care IDT members involved: None Discussed the plan of care with the other interdisciplinary team (IDT) members of the Palliative Care and Hospice teams and Patient, Family, Primary Attending, and Floor Nurse. Subjective: Subjective/Events Sommer Friedman is a 84 y.o. female with PMH A-fib, anxiety, CHF, COPD, dementia, depression, HTN, hypothyroidism. She presented to ED from nursing facility due to rapid irregular heart rate. Patient also had 2 episodes of vomiting and diarrhea. Was evaluated at [facility] ED and found to have elevated BNP. Was given some diuretics and referred to [facility] for admission for A-fib RVR and CHF. This is patient's second admission since September 2024. Palliative care consulted for goals of care. Upon assessment today, patient is sitting up in bed awake. She is A&Ox2. Pleasantly confused. Wishing to leave the hospital soon. On room air. Denies shortness of breath. Denies pain during exam. Last documented BM 10/29. GOC discussions: Met with patient at bedside. Introduced self and role and provided medical updates. Patient shares goals to get out of the hospital and return to facility. She states that she does not think she has HCPOA. Says I can call her sons for further information. Discussed CODE STATUS. Patient shares that she does not think she would want ventilator support. Shares she wouldn't want to just be laying around without quality of life. Unsure her wishes regarding CPR. Encouraged her to discuss this with her sons. All questions answered. -Called patient's son Parris. Introduced self and role and provided medical updates. Parris shares that he thinks his brother Jaylan is medical POA and that he is financial POA. He shares that pt used to green party a lot back in the day and that he and brother didn't really have close relationship with her. State that given the circumstances and her dementia, they are willing to help her out now. He says that the nursing facility had recently discussed code status with them, and they plan to visit pt this weekend to further discuss. Do not feel comfortable making decisions before talking with her. I do share that pt told me that she was unsure about CPR & stated she would likely not want vent. Discuss the difference between full code, DNR-CCA and DNR-FULLING MILL OPERATOR. Encourage him and his brother to think about what would be quality of life for patient. He verbalizes understanding & is appreciative of call. All questions answered. Pain Assessment No pain Palliative Care Assessments: Goals of care: Continue Current Management and Improve or Maintain Function/Quality of Life Advanced Directives: No Known Advance Directive Functional Assessment: PPS 60% amb reduced; can't do normal housework/sig disease; occ assistance; normal or reduced intake; full LOC or confusion Prognosis: depends upon goals of care and uncertain at this time Spiritual Assessment: No spiritual distress identified Bereavement and Grief: Grief Issues Not Identified PDMP/OARRS Reviewed: Yes-oxycodone 5 mg #30(5) last filled 04/12/24 Social history: Marital status: Children: 2 adult child(essence) Living status: [facility] Work history: Unknown [place] status: No Uatsdin maria fernanda: Religious ROS: See palliative care ROS/ESAS below; All other systems were reviewed and are negative. Yeoman Symptom Assessment Score Yeoman Score Pain Score (if non-verbal, add .FLACC below) 0 Tiredness Score 2 Nausea Score 0 Depression Score 0 Anxiety Score 4 Drowsiness Score 0 Anorexia Score (0= eating well, 10= not eating) 5 Wellbeing Score (10= worst sense of well-being) 5 Constipation 0 Dyspnea Score (0= no shortness of breath) 0 Family Meeting: Participants: none held Family meeting was held to discuss:N/A Past Medical History: Diagnosis Date Afib (CMS/HCC) (HCC) Anxiety CHF (congestive heart failure) (HCC) COPD (chronic obstructive pulmonary disease) (HCC) Dementia (HCC) Depression Hyperlipidemia Hypertension Hypothyroid Insomnia Pulmonary HTN (HCC) History reviewed. No pertinent surgical history. No family history on file. Unable to obtain family history due to dementia Allergies Allergen Reactions Doxycycline Other Reaction(s): Not available Gabapentin Propoxyphene Objective: BP 97/55 Pulse 87 Temp 37 C (98.6 F) (Temporal) Resp 14 Ht 5' 4 (1.626 m) Wt 128 lb (58.1 kg) SpO2 94% BMI 21.97 kg/m Physical Exam Vitals reviewed. HENT: Head: Normocephalic. Nose: Nose normal. Cardiovascular: Rate and Rhythm: Normal rate. Rhythm irregular. Pulses: Normal pulses. Heart sounds: Normal heart sounds. Abdominal: General: Bowel sounds are normal. There is no distension. Palpations: Abdomen is soft. Tenderness: There is no abdominal tenderness. Musculoskeletal: Right lower leg: No edema. Left lower leg: No edema. Skin: General: Skin is warm and dry. Neurological: Mental Status: She is alert. She is disoriented. Psychiatric: Cognition and Memory: Cognition is impaired. Memory is impaired. Medication information: 24-hour PRN meds received: None Results/Verification of Data Review Objective data reviewed (must include dates reviewed for labs, imaging reports and other specialty notes): Labs, echo, CXR, records, medication use, vitals, and chart reviewed on 10/31/24 Data in Support of Terminal Illness: Is patient hospice appropriate? TBD Transition Note Initiated: yes Vincent Lorenzana APRN - [employer] Cosigned by Rohini Ferro MD at 11/01/2024 11:36 AM EDT Associated Order(s): IP CONSULT TO GERIATRICS [facility] Geriatric Medicine Inpatient Consult Service Admission Date: 10/29/2024 Admission Status: INPATIENT Chief Complaint: confusion Reason for Appointment Geriatrics consulted for functional and cognitive decline/dementia Assessment & Plan Principal Problem: Acute heart failure with preserved ejection fraction (HFpEF) ([facility]) Active Problems: Dementia ([facility]) Atrial fibrillation, permanent ([facility]) Debility Essential hypertension Dementia --Lives at [facility] for 2 years --continue Donepezil 10mg daily --Gradual cognitive decline. Can get irritable at baseline. --MRI brain 11/27/23 - moderate chronic microvascular ischemia --check B12 --monitor for delirium At risk for delirium --Risk factors: , pain, advanced age, sensory impairments, acute illness, high risk medications, and baseline cognitive deficits --Encourage PO intake, time up in chair, family visits, supervised ambulation, and sleep hygiene --If agitated, assess for and consider treating for pain --QTc= 462 ms --No antipsychotic unless patient is danger to self/others/treatment --If agitated, recommend Seroquel 12.5mg BID PRN --Avoid benzodiazepines and anticholinergic medications --Continue scheduled melatonin at HS --Monitor for constipation/urinary retention - last BM 10/29 --Possible medication contributions: Tizanidine, Morphine Debility --contributing factors include spinal stenosis, heart failure, COPD, Dementia --lives in LTC --PT and OT --Anticipate return to SNF/LTC at discharge Depression/Anxiety --Continue Lexapro 15mg daily. Recommend as outpatient lowering to 10mg daily. Can consider switching to Sertraline outpatient. --Continue Buspar 5mg BID Chronic pain --takes Tizanidine 4mg TID but it has been on hold at [facility] since recent hospitalization. Will change to PRN. May be contributing to confusion. -Monitor LFTs, consider adding scheduled Tylenol. I spent total time of 70 minutes face to face with the patient and/or family discussing the diagnosis and importance of compliance with the treatment plan as well as documenting on the day of the visit. In addition, that total time includes the following: -Reviewing previous notes, -Reviewing labs, -Obtaining and/or reviewing separately obtained history, -Ordering prescription medications, tests and procedures, -Communicating results to the patient/family/caregiver, -Counseling/educating the patient/family/caregiver, -Documenting clinical information in the patients electronic record, and -Performing a medically appropriate exam and/or evaluation Subjective: HPI 84 y.o. year-old female with PMH of atrial fibrillation, anxiety, CHF, COPD, Dementia, Depression, HLD, HTN, Hypothyroidism, Insomnia, Pulmonary hypertension, L1 Burst fracture, spinal stenosis presented to [facility] from [facility] on 10/29 with complaints of shortness of breath. Admitted with acute heart failure, atrial fibrillation with RVR. -Recently hospitalized 10/17 - 10/19 ago for CHF, atrial fibrillation with RVR and proteus UTI. -ER visit 10/24 for altered mental status. Discharged back to facility. Nursing Delirium Screen (Nu-Desc): Nursing Delirium Symptom Checklist Total Score: 0 Conversation with patient: --Patient states used to live in [place]. She has been living in an apartment and was going to have her own room. She states she is here because she is losing her mind. Looks at board and states she is in [place] at [facility]. Thinks it is end of October 2024. States her son Parris is her main contact and POA. Conversation with caregiver: Son Parris . -Lives in [facility] since 2 years in Apr. Living in [place] prior to that. Diagnosed with Dementia then. Has short term memory loss. Repeating. They moved her room recently closer to nursing station. -Memory getting worse more recently. -Mood is ok. Always has been impatient. Can get irritable quickly. Agitated at times. Nurse at [facility] - patient gets very anxious easily. Very pleasant. May need Standby assist for bathing. Usually dresses self. Uses a wheelchair. Reviewed medications. Does take Buspar, Donepezil, Lexapro as ordered. Has been on Tizanidine 4mg TID, it has been on hold since she was in the hospital recently. Nurse unsure how long she has been on this. Advance Care Planning Healthcare Power of Bone Tender: Yes kaushal Tian [employer] Power of Bone Tender: Yes, kaushal Huitron Code Status: Full Code Allergies Allergen Reactions Doxycycline Other Reaction(s): Not available Gabapentin Propoxyphene Current Facility-Administered Medications: acetaminophen (Tylenol) tablet 650 mg, 650 mg, Oral, q6h PRN OR acetaminophen (Tylenol) suppository 650 mg, 650 mg, Rectal, q6h PRN, Travis Goncalves MD apixaban (Eliquis) tablet 2.5 mg, 2.5 mg, Oral, BID, Travis Goncalves MD, 2.5 mg at 10/30/24 0926 busPIRone (Buspar) tablet 5 mg, 5 mg, Oral, BID, Travis Goncalves MD, 5 mg at 10/30/24 0927 calcium carbonate (Tums) chewable tablet 500 mg, 500 mg, Oral, PRN, Travis Goncalves MD donepezil (Aricept) tablet 10 mg, 10 mg, Oral, Nightly, Travis Goncalves MD escitalopram (Lexapro) tablet 15 mg, 15 mg, Oral, Daily, Travis Goncalves MD, 15 mg at 10/30/24 0926 furosemide (Lasix) injection 40 mg, 40 mg, IntraVENous, BID, Casey Elkins MD, 40 mg at 10/30/24 1253 hydrALAZINE (Apresoline) tablet 25 mg, 25 mg, Oral, 4x daily PRN, Casey Elkins MD levothyroxine (Synthroid, Levoxyl) tablet 88 mcg, 88 mcg, Oral, qAM AC, Travis Goncalves MD, 88 mcg at 10/30/24 0558 magnesium sulfate IVPB premix 2,000 mg, 2,000 mg, IntraVENous, PRN OR magnesium sulfate IVPB 4,000 mg, 4,000 mg, IntraVENous, PRN, Travis Goncalves MD melatonin tablet 3 mg, 3 mg, Oral, Nightly, Sharyn Brown MD, 3 mg at 10/29/242021 metoprolol tartrate (Lopressor) tablet 25 mg, 25 mg, Oral, TID, Casey Elkins MD ondansetron (Zofran) injection 4 mg, 4 mg, IntraVENous, q4h PRN, Travis Goncalves MD, 4 mg at 10/30/24 0213 polyethylene glycol (PEG) 3350 (Miralax) packet 17 g, 17 g, Oral, Daily PRN, Travis Goncalves MD potassium chloride CR (Klor-Con M10) ER tablet 40 mEq, 40 mEq, Oral, PRN OR potassium chloride (Klor-Con) packet 40 mEq, 40 mEq, Oral, PRN OR potassium chloride 40 mEq in sodium chloride 0.9 % 500 mL IVPB, 40 mEq, IntraVENous, PRN, Travis Goncalves MD prochlorperazine (Compazine) injection 5 mg, 5 mg, IntraVENous, q6h PRN, Travis Goncalves MD tiZANidine (Zanaflex) tablet 4 mg, 4 mg, Oral, TID, Travis Goncalves MD, 4 mg at 10/30/24 1253 traZODone (Desyrel) tablet 25 mg, 25 mg, Oral, Nightly, Travis Goncalves MD Past Medical History: Diagnosis Date Afib (CMS/HCC) (HCC) Anxiety CHF (congestive heart failure) (HCC) COPD (chronic obstructive pulmonary disease) (HCC) Dementia (HCC) Depression Hyperlipidemia Hypertension Hypothyroid Insomnia Pulmonary HTN (HCC) History reviewed. No pertinent surgical history. Social History Tobacco Use Smoking status: Unknown Smokeless tobacco: Not on file Substance Use Topics Alcohol use: Not Currently Social History Social History Narrative Not on file Family History No family history on file. No family status information on file. Review of Systems HENT: Negative for congestion. Respiratory: Negative for cough and shortness of breath. Cardiovascular: Negative for chest pain and leg swelling. Gastrointestinal: Negative for abdominal pain and constipation. Genitourinary: Negative for difficulty urinating. Musculoskeletal: Bilateral feet pain Neurological: Positive for weakness. Negative for dizziness. Psychiatric/Behavioral: Positive for confusion. Negative for dysphoric mood and sleep disturbance. The patient is not nervous/anxious. Functional Status Prior to Admission: (I: Independent, A: Assisted, D: Dependent) ADLs I A D Notes Bathing [] [x] [] Dressing [x] [] [] Toileting [x] [] [] Transfers [x] [] [] Feeding [x] [] [] Ambulation [] [] [] Assistive devices: wheelchair IADLs I A D Telephone [x] [] [] Transportation [] [] [] Shopping [] [] [] Meal prep [] [] [] Housework [] [] [] Medications [] [] [] Finances [] [] [] Objective: BP (!) 178/85 (BP Location: Right arm, Patient Position: Lying) Pulse 105 Temp 36.2 C (97.1 F) (Temporal) Resp 18 Ht 5' 4 (1.626 m) Wt 128 lb (58.1 kg) SpO2 94% BMI 21.97 kg/m Intake/Output Summary (Last 24 hours) at 10/30/2024 1402 Last data filed at 10/30/2024 0845 Gross per 24 hour Intake 120 ml Output 450 ml Net -330 ml Wt Readings from Last 3 Encounters: 10/29/24 128 lb (58.1 kg) 10/24/24 135 lb (61.2 kg) 10/18/24 135 lb (61.2 kg) Physical Exam Vitals reviewed. Constitutional: General: She is not in acute distress. Comments: Slightly drowsy Cardiovascular: Rate and Rhythm: Normal rate. Rhythm irregular. Pulmonary: Effort: Pulmonary effort is normal. No respiratory distress. Breath sounds: Normal breath sounds. Abdominal: General: Bowel sounds are normal. There is no distension. Palpations: Abdomen is soft. Tenderness: There is no abdominal tenderness. Musculoskeletal: Right lower leg: No edema. Left lower leg: No edema. Neurological: Mental Status: She is alert. Comments: Oriented to person, place, month, year, not date Psychiatric: Attention and Perception: She is inattentive. Mood and Affect: Mood normal. Behavior: Behavior is cooperative. Cognition and Memory: Cognition is impaired. Memory is impaired. Labs and Imaging: Recent Results (from the past 24 hours) Serial Troponin, High Sensitivity Collection Time: 10/29/24 3:53 PM Result Value Ref Range Troponin HS Serial Baseline 18 (H) <=14 ng/L Basic metabolic panel Collection Time: 10/29/24 4:26 PM Result Value Ref Range SODIUM 139 136 - 145 mmol/L POTASSIUM 3.9 3.5 - 5.1 mmol/L CHLORIDE 105 98 - 107 mmol/L CARBON DIOXIDE 25 23 - 31 mmol/L UREA NITROGEN 19 9 - 23 mg/dL CREATININE 1.17 (H) 0.57 - 1.11 mg/dL GLUCOSE 145 (H) 82 - 115 mg/dL CALCIUM 9.7 8.8 - 10.0 mg/dL ANION GAP 9 3 - 13 mmol/L eGFR 46.7 (L) >60.0 mL/min/1.73m*2 Magnesium Collection Time: 10/29/24 4:26 PM Result Value Ref Range MAGNESIUM 2.0 1.6 - 2.6 mg/dL SARS-CoV-2, Flu A/B, and RSV Combo Collection Time: 10/29/24 8:06 PM Specimen: Nasopharynx; Swab Result Value Ref Range SARS-CoV-2 Not Detected Not Detected Respiratory Syncytial Virus Not Detected Not Detected Influenza A Not Detected Not Detected Influenza B Not Detected Not Detected CBC Collection Time: 10/30/24 3:55 AM Result Value Ref Range Auto WBC 7.8 3.6 - 10.7 10*3/uL RBC 4.21 3.80 - 5.20 10*6/uL Hemoglobin 13.4 11.7 - 16.0 g/dL Hematocrit 41.2 35.0 - 47.0 % MCV 97.9 77.0 - 99.0 fL MCH 31.8 26.0 - 34.0 pg MCHC 32.5 30.5 - 36.0 % RDW 13.4 11.5 - 15.0 % Platelets 315 140 - 440 10*3/uL MPV 8.8 (L) 9.0 - 12.7 fL Basic metabolic panel Collection Time: 10/30/24 3:55 AM Result Value Ref Range SODIUM 137 136 - 145 mmol/L POTASSIUM 3.4 (L) 3.5 - 5.1 mmol/L CHLORIDE 105 98 - 107 mmol/L CARBON DIOXIDE 20 (L) 23 - 31 mmol/L UREA NITROGEN 19 9 - 23 mg/dL CREATININE 1.04 0.57 - 1.11 mg/dL GLUCOSE 126 (H) 82 - 115 mg/dL CALCIUM 9.3 8.8 - 10.0 mg/dL ANION GAP 12 3 - 13 mmol/L eGFR 53.8 (L) >60.0 mL/min/1.73m*2 Magnesium Collection Time: 10/30/24 3:55 AM Result Value Ref Range MAGNESIUM 1.9 1.6 - 2.6 mg/dL Lab Results Component Value Date TSH 2.48 10/17/2024 No components found for: B12 No results found for: VITD25 Reviewed: active problem list, medication list, allergies, social history, notes from last encounter, notes from last several encounters, lab results, imaging Follow-up: will follow with you ZULAY Rossi CNP 10/30/24 2:02 PM Associated Order(s): IP CONSULT TO CARDIOLOGY [facility] Cardiology Consult Note Reason for Consult/Chief Complaint: Afib Established sign hanger: Joana Sánchez MD. History of Present Illness: Sommer Friedman is a 84 y.o. female A fib on OAC, hypertension, dementia, and COPD. Lives at SNF. Failed sotalol and diltiazem when at [facility] due to bradycardia. Seen at [facility] for cardiology 08/2024. Do not see f/u since 08/2024 at [facility]. [facility] - Sep 2024 adm for Afib/HF. Conservative mgt Stable in Afib on lopressor 25 bid and Eliquis 2.5. LVEF normal. Plan was to stay at SNF and f/u with [facility] cardiology. Poor ROS due to dementia. Denies CP, SOB, palpitations. Lying in bed comfortable. Chart review says adm w/decr fxn/mobility, decr strength, decr awareness/balance. By report an TIMBO at facility saw SOB for 5 min. Pt also has insomnia. Note that initially, HR seemed faster than usual; but improving. Did receive IV lasix on admission. Assessment/Plan HF NYHA Class [] I [] II [] III [] IV [x]Unable to assess Afib. Permanent. Rate ok. -Continue lopressor 25 bid -Cont Eliquis 2.5 bid -No other mgt needed HF? Probable acute HFpEF. Stage C. EF 62% 09/2024 Elev BNP. Diff to assess due in part to dementia. Not marked vol overload but exam suggests excess vol and corroborates prior Echo IVC findings. -Lasix 40 IV BID X 4 doses, then reassess -Will need outpt loop diuretic. -Not clear risk/benefit of SGLT2i. Dementia/ Poor fxnal status/ insomnia Lives in memory care unit SNF. Says activity level quite low; uses walker and wheelchair. May be worsening over time; though acute change may be due to acute HF. -Code is FULL; consider Palliative evaluation to discuss CCA given that her likelihood of returning -Consider Geriatric consult; pt dementia worsening over time, poor fxnal status confers increased risk, role of meds? HTN. Prefer target <130/80 mmhg. -Cont lopressor -Consider add other med if needed for BP control after diuresis complete. Elev HST. Minimal. Likely due to metabolic stressors. Delta was negative. -No further w/u; not appropriate for ischemic evluation given overall clinical findings. Medications: apixaban, 2.5 mg, Oral, BID busPIRone, 5 mg, Oral, BID donepezil, 10 mg, Oral, Nightly escitalopram, 15 mg, Oral, Daily levothyroxine, 88 mcg, Oral, qAM AC melatonin, 3 mg, Oral, Nightly metoprolol tartrate, 25 mg, Oral, BID tiZANidine, 4 mg, Oral, TID traZODone, 25 mg, Oral, Nightly Infusion Medications: Physical Examination: Vitals: 10/30/24 0043 10/30/24 0156 10/30/24 0342 10/30/24 0822 BP: (!) 174/101 (!) 175/115 (!) 172/94 BP Location: Left arm Left arm Right arm Patient Position: Lying Lying Lying Pulse: 90 83 82 95 Resp: 16 18 18 22 Temp: 37 C (98.6 F) (!) 35.6 C (96.1 F) 36.2 C (97.1 F) TempSrc: Temporal Temporal Temporal SpO2: 95% 95% 93% 94% Weight: Height: Intake/Output Summary (Last 24 hours) at 10/30/2024 1133 Last data filed at 10/30/2024 0845 Gross per 24 hour Intake 120 ml Output 1625 ml Net -1505 ml Wt Readings from Last 3 Encounters: 10/29/24 128 lb (58.1 kg) 10/24/24 135 lb (61.2 kg) 10/18/24 135 lb (61.2 kg) Physical Exam Constitutional: No acute distress. Well nourished. Well hydrated Psychiatric: A &O x 1. Medical insight poor NMT: Oral mucosa is pink and moist Neck: + JVD, +HJR. Respiratory: Lungs are clear Cardiac exam: Rhythm: Irreg irreg ; Normal S1 and S2 Murmur: None Other: No rub; no gallop Vasc: Peripheral pulses 2+ Abdomen: Soft, +BS, NT/ND Extremities: No LE edema Skin: Warm to touch and well perfused Laboratory Tests: TROPONIN I, CONVENTIONAL SENSITIVITY CK Date Value Ref Range Status 04/10/2024 29 (L) 30 - 170 U/L Final TROPONIN I Date Value Ref Range Status 04/10/2024 <0.012 <0.034 ng/mL Final TROPONIN I, HIGH SENSITIVITY Troponin HS Serial Baseline Date Value Ref Range Status 10/29/2024 18 (H) <=14 ng/L Final Comment: In individuals presenting with symptoms > 2h, a baseline troponin <= 5 ng/L suggests acute cardiac injury is unlikely and further serial testing is generally not indicated. 10/29/2024 19 (H) <=14 ng/L Final Comment: In individuals presenting with symptoms > 2h, a baseline troponin <= 5 ng/L suggests acute cardiac injury is unlikely and further serial testing is generally not indicated. 10/17/2024 76 (H) <=14 ng/L Final Comment: In individuals presenting with symptoms > 2h, a baseline troponin <= 5 ng/L suggests acute cardiac injury is unlikely and further serial testing is generally not indicated. 10/17/2024 82 (H) <=14 ng/L Final Comment: In individuals presenting with symptoms > 2h, a baseline troponin <= 5 ng/L suggests acute cardiac injury is unlikely and further serial testing is generally not indicated. 2h Troponin HS (Serial 2nd Troponin) Date Value Ref Range Status 10/29/2024 19 (H) <=14 ng/L Final Comment: Rising or falling troponin delta below 2 ng/L as compared to baseline value suggests that acute cardiac injury is unlikely. 10/17/2024 81 (H) <=14 ng/L Final Comment: Rising or falling troponin delta between 2 - 15 ng/L as compared to baseline value requires a 3rd serial troponin 10/17/2024 83 (H) <=14 ng/L Final Comment: Rising or falling troponin delta below 2 ng/L as compared to baseline value suggests that acute cardiac injury is unlikely. No results found for: TROPDELTBASE No results found for: TROPHS3 No results found for: TROPDELTSEC Recent Labs 10/29/24 1022 10/29/24 1626 10/30/24 0355 NA 138 139 137 K 4.0 3.9 3.4* CL 108* 105 105 CO2 21* 25 20* BUN 18 19 19 CREATININE 1.06 1.17* 1.04 EGFR 52.6* 46.7* 53.8* Recent Labs 10/30/24 0355 WBC 7.8 HGB 13.4 HCT 41.2 MCV 97.9 PLT 315 No results found for: HGBA1C Lab Results Component Value Date TSH 2.48 10/17/2024 No results found for: CHOL No results found for: HDL No results found for: LDLCALC No results found for: TRIG No results found for: CHOLHDL No results found for: LDLCHOLESTER Recent Labs 10/29/24 1022 BNP 11,795* No results for input(s): INR in the last 72 hours. Results from last 7 days Lab Units 10/29/24 1022 AST U/L 37* ALT U/L 37* No results found for: IRON, TIBC, FERRITIN Radiology: CXR: personally reviewed: No acute disease Cardiac Tests Personally Reviewed: Last EKG 10/29/24 ECG 12-LEAD 10/30/2024 7:01 AM Impression Atrial fibrillation Left anterior fascicular block Consider Anteroseptal infarct, old Abnormal T, consider ischemia, lateral leads Telemetry findings: Afib Reports reviewed: Last Echo 10/17/24 TRANSTHORACIC ECHOCARDIOGRAM (TTE) COMPLETE (CONTRAST/BUBBLE/3D PRN) 10/18/2024 2:37 PM (Final) Interpretation Summary Left Ventricle: Left ventricle size is normal. Mildly increased wall thickness. Mass index 2D is 129.3 g/m2. Findings consistent with mild concentric hypertrophy. Normal left ventricular systolic function. EF by 2D Simpsons Biplane is 62%. Normal wall motion. Right Ventricle: Right ventricle is moderately dilated. Normal systolic function. Aortic Valve: Trileaflet. Mild (1+) regurgitation with an eccentrically directed jet. No stenosis. Tricuspid Valve: No leaflet thickening. Moderate (2+) regurgitation. Moderately elevated RVSP. RVSP is 47 mmHg. Left Atrium: Left atrium is moderately dilated. LA Vol Index A/L is 47 mL/m2. Right Atrium: Right atrium is moderately dilated. IVC/SVC: IVC diameter is dilated and decreases less than 50% during inspiration; therefore the estimated right atrial pressure is elevated (~15 mmHg). Signed by: Casey Eller on 10/18/2024 2:37 PM Last Cath No results found for this or any previous visit. Last Stress Test No results found for this or any previous visit. Last EP study No results found for this or any previous visit. EF BP Date Value Ref Range Status 10/18/2024 62 55 - 100 % Final Casey Elkins MD DATE of SERVICE: 10/30/2024 documented in this encounter [facility] 10-30-2024 Consult note Associated Order (s): IP CONSULT TO GERIATRICS [facility] Geriatric Medicine Inpatient Consult Service Admission Date: 10/29/2024 Admission Status: INPATIENT Chief Complaint: confusion Reason for Appointment Geriatrics consulted for functional and cognitive decline/dementia Assessment & Plan Principal Problem: Acute heart failure with preserved ejection fraction (HFpEF) (HCC) Active Problems: Dementia (HCC) Atrial fibrillation, permanent (HCC) Debility Essential hypertension Dementia --Lives at [facility] for 2 years --continue Donepezil 10mg daily --Gradual cognitive decline. Can get irritable at baseline. --MRI brain 11/27/23 - moderate chronic microvascular ischemia --check B12 --monitor for delirium At risk for delirium --Risk factors: , pain, advanced age, sensory impairments, acute illness, high risk medications, and baseline cognitive deficits --Encourage PO intake, time up in chair, family visits, supervised ambulation, and sleep hygiene --If agitated, assess for and consider treating for pain --QTc= 462 ms --No antipsychotic unless patient is danger to self/others/treatment --If agitated, recommend Seroquel 12.5mg BID PRN --Avoid benzodiazepines and anticholinergic medications --Continue scheduled melatonin at HS --Monitor for constipation/urinary retention - last BM 10/29 --Possible medication contributions: Tizanidine, Morphine Debility --contributing factors include spinal stenosis, heart failure, COPD, Dementia --lives in LTC --PT and OT --Anticipate return to SNF/LTC at discharge Depression/Anxiety --Continue Lexapro 15mg daily. Recommend as outpatient lowering to 10mg daily. Can consider switching to Sertraline outpatient. --Continue Buspar 5mg BID Chronic pain --takes Tizanidine 4mg TID but it has been on hold at [facility] since recent hospitalization. Will change to PRN. May be contributing to confusion. -Monitor LFTs, consider adding scheduled Tylenol. I spent total time of 70 minutes face to face with the patient and/or family discussing the diagnosis and importance of compliance with the treatment plan as well as documenting on the day of the visit. In addition, that total time includes the following: -Reviewing previous notes, -Reviewing labs, -Obtaining and/or reviewing separately obtained history, -Ordering prescription medications, tests and procedures, -Communicating results to the patient/family/caregiver, -Counseling/educating the patient/family/caregiver, -Documenting clinical information in the patients electronic record, and -Performing a medically appropriate exam and/or evaluation Subjective: HPI 84 y.o. year-old female with PMH of atrial fibrillation, anxiety, CHF, COPD, Dementia, Depression, HLD, HTN, Hypothyroidism, Insomnia, Pulmonary hypertension, L1 Burst fracture, spinal stenosis presented to [facility] from [facility] on 10/29 with complaints of shortness of breath. Admitted with acute heart failure, atrial fibrillation with RVR. -Recently hospitalized 10/17 - 10/19 ago for CHF, atrial fibrillation with RVR and proteus UTI. -ER visit 10/24 for altered mental status. Discharged back to facility. Nursing Delirium Screen (Nu-Desc): Nursing Delirium Symptom Checklist Total Score: 0 Conversation with patient: --Patient states used to live in [place]. She has been living in an apartment and was going to have her own room. She states she is here because she is losing her mind. Looks at board and states she is in [place] at [facility]. Thinks it is end of October 2024. States her son Parris is her main contact and POA. Conversation with caregiver: Kaushal Huitron . -Lives in [facility] since 2 years in Apr. Living in [place] prior to that. Diagnosed with Dementia then. Has short term memory loss. Repeating. They moved her room recently closer to nursing station. -Memory getting worse more recently. -Mood is ok. Always has been impatient. Can get irritable quickly. Agitated at times. Nurse at [facility] - patient gets very anxious easily. Very pleasant. May need Standby assist for bathing. Usually dresses self. Uses a wheelchair. Reviewed medications. Does take Buspar, Donepezil, Lexapro as ordered. Has been on Tizanidine 4mg TID, it has been on hold since she was in the hospital recently. Nurse unsure how long she has been on this. Advance Care Planning Healthcare Power of Bone Tender: Yes kaushal [employer] Power of Bone Tender: Yes, kaushal Huitron Code Status: Full Code Allergies Allergen Reactions Doxycycline Other Reaction(s): Not available Gabapentin Propoxyphene Current Facility-Administered Medications: acetaminophen (Tylenol) tablet 650 mg, 650 mg, Oral, q6h PRN OR acetaminophen (Tylenol) suppository 650 mg, 650 mg, Rectal, q6h PRN, Travis Goncalves MD apixaban (Eliquis) tablet 2.5 mg, 2.5 mg, Oral, BID, Travis Goncalves MD, 2.5 mg at 10/30/24 09 busPIRone (Buspar) tablet 5 mg, 5 mg, Oral, BID, Travis Goncalves MD, 5 mg at 10/30/24 0927 calcium carbonate (Tums) chewable tablet 500 mg, 500 mg, Oral, PRN, Travis Goncalves MD donepezil (Aricept) tablet 10 mg, 10 mg, Oral, Nightly, Travis Goncalves MD escitalopram (Lexapro) tablet 15 mg, 15 mg, Oral, Daily, Travis Goncalves MD, 15 mg at 10/30/24 0926 furosemide (Lasix) injection 40 mg, 40 mg, IntraVENous, BID, Casey Elkins MD, 40 mg at 10/30/24 1253 hydrALAZINE (Apresoline) tablet 25 mg, 25 mg, Oral, 4x daily PRN, Casey Elkins MD levothyroxine (Synthroid, Levoxyl) tablet 88 mcg, 88 mcg, Oral, qAM AC, Travis Goncalves MD, 88 mcg at 10/30/24 0558 magnesium sulfate IVPB premix 2,000 mg, 2,000 mg, IntraVENous, PRN OR magnesium sulfate IVPB 4,000 mg, 4,000 mg, IntraVENous, PRN, Travis Goncalves MD melatonin tablet 3 mg, 3 mg, Oral, Nightly, Sharyn Brown MD, 3 mg at 10/29/242021 metoprolol tartrate (Lopressor) tablet 25 mg, 25 mg, Oral, TID, Casey Elkins MD ondansetron (Zofran) injection 4 mg, 4 mg, IntraVENous, q4h PRN, Travis Goncalves MD, 4 mg at 10/30/24 0213 polyethylene glycol (PEG) 3350 (Miralax) packet 17 g, 17 g, Oral, Daily PRN, Travis Goncalves MD potassium chloride CR (Klor-Con M10) ER tablet 40 mEq, 40 mEq, Oral, PRN OR potassium chloride (Klor-Con) packet 40 mEq, 40 mEq, Oral, PRN OR potassium chloride 40 mEq in sodium chloride 0.9 % 500 mL IVPB, 40 mEq, IntraVENous, PRN, Travis Goncalves MD prochlorperazine (Compazine) injection 5 mg, 5 mg, IntraVENous, q6h PRN, Travis Goncalves MD tiZANidine (Zanaflex) tablet 4 mg, 4 mg, Oral, TID, Travis Goncalves MD, 4 mg at 10/30/24 1253 traZODone (Desyrel) tablet 25 mg, 25 mg, Oral, Nightly, Travis Goncalves MD Past Medical History: Diagnosis Date Afib (CMS/HCC) (HCC) Anxiety CHF (congestive heart failure) (HCC) COPD (chronic obstructive pulmonary disease) (HCC) Dementia (HCC) Depression Hyperlipidemia Hypertension Hypothyroid Insomnia Pulmonary HTN (HCC) History reviewed. No pertinent surgical history. Social History Tobacco Use Smoking status: Unknown Smokeless tobacco: Not on file Substance Use Topics Alcohol use: Not Currently Social History Social History Narrative Not on file Family History No family history on file. No family status information on file. Review of Systems HENT: Negative for congestion. Respiratory: Negative for cough and shortness of breath. Cardiovascular: Negative for chest pain and leg swelling. Gastrointestinal: Negative for abdominal pain and constipation. Genitourinary: Negative for difficulty urinating. Musculoskeletal: Bilateral feet pain Neurological: Positive for weakness. Negative for dizziness. Psychiatric/Behavioral: Positive for confusion. Negative for dysphoric mood and sleep disturbance. The patient is not nervous/anxious. Functional Status Prior to Admission: (I: Independent, A: Assisted, D: Dependent) ADLs I A D Notes Bathing [] [x] [] Dressing [x] [] [] Toileting [x] [] [] Transfers [x] [] [] Feeding [x] [] [] Ambulation [] [] [] Assistive devices: wheelchair IADLs I A D Telephone [x] [] [] Transportation [] [] [] Shopping [] [] [] Meal prep [] [] [] Housework [] [] [] Medications [] [] [] Finances [] [] [] Objective: BP (!) 178/85 (BP Location: Right arm, Patient Position: Lying) Pulse 105 Temp 36.2 C (97.1 F) (Temporal) Resp 18 Ht 5' 4 (1.626 m) Wt 128 lb (58.1 kg) SpO2 94% BMI 21.97 kg/m Intake/Output Summary (Last 24 hours) at 10/30/2024 1402 Last data filed at 10/30/2024 0845 Gross per 24 hour Intake 120 ml Output 450 ml Net -330 ml Wt Readings from Last 3 Encounters: 10/29/24 128 lb (58.1 kg) 10/24/24 135 lb (61.2 kg) 10/18/24 135 lb (61.2 kg) Physical Exam Vitals reviewed. Constitutional: General: She is not in acute distress. Comments: Slightly drowsy Cardiovascular: Rate and Rhythm: Normal rate. Rhythm irregular. Pulmonary: Effort: Pulmonary effort is normal. No respiratory distress. Breath sounds: Normal breath sounds. Abdominal: General: Bowel sounds are normal. There is no distension. Palpations: Abdomen is soft. Tenderness: There is no abdominal tenderness. Musculoskeletal: Right lower leg: No edema. Left lower leg: No edema. Neurological: Mental Status: She is alert. Comments: Oriented to person, place, month, year, not date Psychiatric: Attention and Perception: She is inattentive. Mood and Affect: Mood normal. Behavior: Behavior is cooperative. Cognition and Memory: Cognition is impaired. Memory is impaired. Labs and Imaging: Recent Results (from the past 24 hours) Serial Troponin, High Sensitivity Collection Time: 10/29/24 3:53 PM Result Value Ref Range Troponin HS Serial Baseline 18 (H) <=14 ng/L Basic metabolic panel Collection Time: 10/29/24 4:26 PM Result Value Ref Range SODIUM 139 136 - 145 mmol/L POTASSIUM 3.9 3.5 - 5.1 mmol/L CHLORIDE 105 98 - 107 mmol/L CARBON DIOXIDE 25 23 - 31 mmol/L UREA NITROGEN 19 9 - 23 mg/dL CREATININE 1.17 (H) 0.57 - 1.11 mg/dL GLUCOSE 145 (H) 82 - 115 mg/dL CALCIUM 9.7 8.8 - 10.0 mg/dL ANION GAP 9 3 - 13 mmol/L eGFR 46.7 (L) >60.0 mL/min/1.73m*2 Magnesium Collection Time: 10/29/24 4:26 PM Result Value Ref Range MAGNESIUM 2.0 1.6 - 2.6 mg/dL SARS-CoV-2, Flu A/B, and RSV Combo Collection Time: 10/29/24 8:06 PM Specimen: Nasopharynx; Swab Result Value Ref Range SARS-CoV-2 Not Detected Not Detected Respiratory Syncytial Virus Not Detected Not Detected Influenza A Not Detected Not Detected Influenza B Not Detected Not Detected CBC Collection Time: 10/30/24 3:55 AM Result Value Ref Range Auto WBC 7.8 3.6 - 10.7 10*3/uL RBC 4.21 3.80 - 5.20 10*6/uL Hemoglobin 13.4 11.7 - 16.0 g/dL Hematocrit 41.2 35.0 - 47.0 % MCV 97.9 77.0 - 99.0 fL MCH 31.8 26.0 - 34.0 pg MCHC 32.5 30.5 - 36.0 % RDW 13.4 11.5 - 15.0 % Platelets 315 140 - 440 10*3/uL MPV 8.8 (L) 9.0 - 12.7 fL Basic metabolic panel Collection Time: 10/30/24 3:55 AM Result Value Ref Range SODIUM 137 136 - 145 mmol/L POTASSIUM 3.4 (L) 3.5 - 5.1 mmol/L CHLORIDE 105 98 - 107 mmol/L CARBON DIOXIDE 20 (L) 23 - 31 mmol/L UREA NITROGEN 19 9 - 23 mg/dL CREATININE 1.04 0.57 - 1.11 mg/dL GLUCOSE 126 (H) 82 - 115 mg/dL CALCIUM 9.3 8.8 - 10.0 mg/dL ANION GAP 12 3 - 13 mmol/L eGFR 53.8 (L) >60.0 mL/min/1.73m*2 Magnesium Collection Time: 10/30/24 3:55 AM Result Value Ref Range MAGNESIUM 1.9 1.6 - 2.6 mg/dL Lab Results Component Value Date TSH 2.48 10/17/2024 No components found for: B12 No results found for: VITD25 Reviewed: active problem list, medication list, allergies, social history, notes from last encounter, notes from last several encounters, lab results, imaging Follow-up: will follow with you ZULAY Rossi CNP 10/30/24 2:02 PM [facility] 10-30-2024 Note Formatting of this n ote might be different from the original. Referral placed to return back to [facility] via [facility] per TCC request. Await review and response regarding ability to accept. TCC notified. [facility] 10-30-2024 Note Formatting of this n ote might be different from the original. Referral placed to return back to [facility] via [facility] per TCC request. Await review and response regarding ability to accept. TCC notified. [facility] 10-30-2024 Note Referral placed to r nikaurn back to [facility] via [facility] per TCC request. Await review and response regarding ability to accept. TCC notified. [facility] 10-30-2024 Note Formatting of this n ote might be different from the original. Care Management Progress Note Spoke with pt's son Parris and he states he is okay with pt going back to [facility]. [employer] tasked to make ICF return to [facility]. Length of Stay (Days): 1 GMLOS: No GMLOS Documented [facility] 10-30-2024 Note Formatting of this n ote might be different from the original. Care Management Progress Note Spoke with pt's son Parris and he states he is okay with pt going back to [facility]. [employer]ADER tasked to make ICF return to [facility]. Length of Stay (Days): 1 GMLOS: No GMLOS Documented [facility] 10-30-2024 Consult note Associated Order (s): IP CONSULT TO CARDIOLOGY [facility] [place] [facility] [place] Note Reason for Consult/Chief Complaint: Afib Established sign [facility] History of Present Illness: Sommer Friedman is a 84 y.o. female A fib on OAC, hypertension, dementia, and COPD. Lives at SNF. Failed sotalol and diltiazem when at [facility] due to bradycardia. Seen at [facility] for cardiology 08/2024. Do not see f/u since 08/2024 at [facility]. [facility] - Sep 2024 adm for Afib/HF. Conservative mgt Stable in Afib on lopressor 25 bid and Eliquis 2.5. LVEF normal. Plan was to stay at SNF and f/u with [facility] cardiology. Poor ROS due to dementia. Denies CP, SOB, palpitations. Lying in bed comfortable. Chart review says adm w/decr fxn/mobility, decr strength, decr awareness/balance. By report an TIMBO at facility saw SOB for 5 min. Pt also has insomnia. Note that initially, HR seemed faster than usual; but improving. Did receive IV lasix on admission. Assessment/Plan HF NYHA Class [] I [] II [] III [] IV [x]Unable to assess Afib. Permanent. Rate ok. -Continue lopressor 25 bid -Cont Eliquis 2.5 bid -No other mgt needed HF? Probable acute HFpEF. Stage C. EF 62% 09/2024 Elev BNP. Diff to assess due in part to dementia. Not marked vol overload but exam suggests excess vol and corroborates prior Echo IVC findings. -Lasix 40 IV BID X 4 doses, then reassess -Will need outpt loop diuretic. -Not clear risk/benefit of SGLT2i. Dementia/ Poor fxnal status/ insomnia Lives in memory care unit SNF. Says activity level quite low; uses walker and wheelchair. May be worsening over time; though acute change may be due to acute HF. -Code is FULL; consider Palliative evaluation to discuss [facility] given that her likelihood of returning -Consider Geriatric consult; pt dementia worsening over time, poor fxnal status confers increased risk, role of meds? HTN. Prefer target <130/80 mmhg. -Cont lopressor -Consider add other med if needed for BP control after diuresis complete. Elev HST. Minimal. Likely due to metabolic stressors. Delta was negative. -No further w/u; not appropriate for ischemic evluation given overall clinical findings. Medications: apixaban, 2.5 mg, Oral, BID busPIRone, 5 mg, Oral, BID donepezil, 10 mg, Oral, Nightly escitalopram, 15 mg, Oral, Daily levothyroxine, 88 mcg, Oral, qAM AC melatonin, 3 mg, Oral, Nightly metoprolol tartrate, 25 mg, Oral, BID tiZANidine, 4 mg, Oral, TID traZODone, 25 mg, Oral, Nightly Infusion Medications: Physical Examination: Vitals: 10/30/24 0043 10/30/24 0156 10/30/24 0342 10/30/24 0822 BP: (!) 174/101 (!) 175/115 (!) 172/94 BP Location: Left arm Left arm Right arm Patient Position: Lying Lying Lying Pulse: 90 83 82 95 Resp: Temp: 37 C (98.6 F) (!) 35.6 C (96.1 F) 36.2 C (97.1 F) TempSrc: Temporal Temporal Temporal SpO2: 95% 95% 93% 94% Weight: Height: Intake/Output Summary (Last 24 hours) at 10/30/2024 1133 Last data filed at 10/30/2024 0845 Gross per 24 hour Intake 120 ml Output 1625 ml Net -1505 ml Wt Readings from Last 3 Encounters: 10/29/24 128 lb (58.1 kg) 10/24/24 135 lb (61.2 kg) 10/18/24 135 lb (61.2 kg) Physical Exam Constitutional: No acute distress. Well nourished. Well hydrated Psychiatric: A &O x 1. Medical insight poor NMT: Oral mucosa is pink and moist Neck: + JVD, +HJR. Respiratory: Lungs are clear Cardiac exam: Rhythm: Irreg irreg ; Normal S1 and S2 Murmur: None Other: No rub; no gallop Vasc: Peripheral pulses 2+ Abdomen: Soft, +BS, NT/ND Extremities: No LE edema Skin: Warm to touch and well perfused Laboratory Tests: TROPONIN I, CONVENTIONAL SENSITIVITY CK Date Value Ref Range Status 04/10/2024 29 (L) 30 - 170 U/L Final TROPONIN I Date Value Ref Range Status 04/10/2024 <0.012 <0.034 ng/mL Final TROPONIN I, HIGH SENSITIVITY Troponin HS Serial Baseline Date Value Ref Range Status 10/29/2024 18 (H) <=14 ng/L Final Comment: In individuals presenting with symptoms > 2h, a baseline troponin <= 5 ng/L suggests acute cardiac injury is unlikely and further serial testing is generally not indicated. 10/29/2024 19 (H) <=14 ng/L Final Comment: In individuals presenting with symptoms > 2h, a baseline troponin <= 5 ng/L suggests acute cardiac injury is unlikely and further serial testing is generally not indicated. 10/17/2024 76 (H) <=14 ng/L Final Comment: In individuals presenting with symptoms > 2h, a baseline troponin <= 5 ng/L suggests acute cardiac injury is unlikely and further serial testing is generally not indicated. 10/17/2024 82 (H) <=14 ng/L Final Comment: In individuals presenting with symptoms > 2h, a baseline troponin <= 5 ng/L suggests acute cardiac injury is unlikely and further serial testing is generally not indicated. 2h Troponin HS (Serial 2nd Troponin) Date Value Ref Range Status 10/29/2024 19 (H) <=14 ng/L Final Comment: Rising or falling troponin delta below 2 ng/L as compared to baseline value suggests that acute cardiac injury is unlikely. 10/17/2024 81 (H) <=14 ng/L Final Comment: Rising or falling troponin delta between 2 - 15 ng/L as compared to baseline value requires a 3rd serial troponin 10/17/2024 83 (H) <=14 ng/L Final Comment: Rising or falling troponin delta below 2 ng/L as compared to baseline value suggests that acute cardiac injury is unlikely. No results found for: TROPDELTBASE No results found for: TROPHS3 No results found for: TROPDELTSEC Recent Labs 10/29/24 1022 10/29/24 1626 10/30/24 0355 NA 138 139 137 K 4.0 3.9 3.4* CL 108* 105 105 CO2 21* 25 20* BUN 18 19 19 CREATININE 1.06 1.17* 1.04 EGFR 52.6* 46.7* 53.8* Recent Labs 10/30/24 0355 WBC 7.8 HGB 13.4 HCT 41.2 MCV 97.9 PLT 315 No results found for: HGBA1C Lab Results Component Value Date TSH 2.48 10/17/2024 No results found for: CHOL No results found for: HDL No results found for: LDLCALC No results found for: TRIG No results found for: CHOLHDL No results found for: LDLCHOLESTER Recent Labs 10/29/24 1022 BNP 11,795* No results for input(s): INR in the last 72 hours. Results from last 7 days Lab Units 10/29/24 1022 AST U/L 37* ALT U/L 37* No results found for: IRON, TIBC, FERRITIN Radiology: CXR: personally reviewed: No acute disease Cardiac Tests Personally Reviewed: Last EKG 10/29/24 ECG 12-LEAD 10/30/2024 7:01 AM Impression Atrial fibrillation Left anterior fascicular block Consider Anteroseptal infarct, old Abnormal T, consider ischemia, lateral leads Telemetry findings: Afib Reports reviewed: Last Echo 10/17/24 TRANSTHORACIC ECHOCARDIOGRAM (TTE) COMPLETE (CONTRAST/BUBBLE/3D PRN) 10/18/2024 2:37 PM (Final) Interpretation Summary Left Ventricle: Left ventricle size is normal. Mildly increased wall thickness. Mass index 2D is 129.3 g/m2. Findings consistent with mild concentric hypertrophy. Normal left ventricular systolic function. EF by 2D Simpsons Biplane is 62%. Normal wall motion. Right Ventricle: Right ventricle is moderately dilated. Normal systolic function. Aortic Valve: Trileaflet. Mild (1+) regurgitation with an eccentrically directed jet. No stenosis. Tricuspid Valve: No leaflet thickening. Moderate (2+) regurgitation. Moderately elevated RVSP. RVSP is 47 mmHg. Left Atrium: Left atrium is moderately dilated. LA Vol Index A/L is 47 mL/m2. Right Atrium: Right atrium is moderately dilated. IVC/SVC: IVC diameter is dilated and decreases less than 50% during inspiration; therefore the estimated right atrial pressure is elevated (~15 mmHg). Signed by: Casey Eller on 10/18/2024 2:37 PM Last Cath No results found for this or any previous visit. Last Stress Test No results found for this or any previous visit. Last EP study No results found for this or any previous visit. EF BP Date Value Ref Range Status 10/18/2024 62 55 - 100 % Final Casey Elkins MD DATE of SERVICE: 10/30/2024 [facility] 10-30-2024 Nurse Note Patients updated home meds list was not on the patients file so called [facility] for home meds list . They fax thrice but only can get front page . Informed them about the fax received but can't resolve this problem at the moment. [facility] wants us to call after 0830 for follow up. [facility] 10-30-2024 Plan of care note Problem: Potential for Compromised Skin Integrity Goal: Skin Integrity is Maintained or Improved Outcome: Progressing Goal: Nutritional status is improving Outcome: Not Progressing Problem: Urinary Incontinence Goal: Perineal skin integrity is maintained or improved Outcome: Progressing Problem: Potential for Compromised Skin Integrity Goal: Nutritional status is improving Outcome: Not Progressing Problem: Potential for Falls Goal: I will remain free of falls Outcome: Not Progressing [facility] 10-30-2024 History and physical note History and Physical [facility] Sommer Kel : 1940 AGE 84 y.o. YEARS Note Date 10/30/2024 Primary Care Physician:Kathi Juarez MD Current Providers as of 10/29/2024 PCP: Kathi Juarez MD Referring Provider: not found, starting on MonOct 29, 2024 12:00 AM Admitting Provider: Toribio Shepherd MD, (Active) Attending Provider: Marcos Araujo MD, starting on MonOct 29, 2024 9:35 AM, ending on MonOct 30, 2024 1:27 AM (Inactive) Attending Provider: Toribio Shepherd MD, starting on MonOct 29, 2024 12:40 PM (Active) Registered Nurse: Nina Baron RN, starting on MonOct 29, 2024 9:29 AM, ending on MonOct 29, 2024 7:32 PM (Inactive) Registered Nurse: Alysa Lugo RN, starting on MonOct 29, 2024 6:54 PM, ending on MonOct 30, 2024 1:27 AM (Inactive) Registered Nurse: Ana Hayes RN, starting on MonOct 30, 2024 1:39 AM (Active) Chief Complaint: Irregular Heart Beat HPI: She is alert to name and date. She was currently at [facility]. There she was sent over to [place] ED for rapid heart rate. Also reports that she had a couple episodes of vomiting couple episodes of nonbloody diarrhea. She was seen at [place] had elevated BNP was given some furosemide and referred over here for admission for A-fib RVR and CHF. I am unable to get much history from her she only mentions a few things not able to give me much detailed history chart review in the computer shows that she was discharged here on October 19 which was approximately 2 weeks ago that time she was treated with A-fib RVR CHF and Proteus mirabilis UTI. In the interim on October 24 she did have a ER visit for confusion As I see her in the room she is calm resting in bed she is not complaining of any pain palpitations she had some vomiting and nausea earlier along with some loose stools but does not currently have this when I am in the room with her Review of Systems: Chancer is notable almost all questions I asked her General: Skin: HEENT: Cardiovascular It was reported she had palpitations although she could not tell me this Fever n Rashes n Difficulty chewing n Chest Pain n Chills n Sores n Appetite Loss n Chest Pressure n Fatigue n Epistaxis Orthopnea n Sweats n Hearing loss Palpitations n GI: Tinnitus GERD n Vision quality RESP: Abdominal Pain n : SOB/DELANEY n Nausea y Hematuria n Cough n Vomiting y Dysuria n Productive/Sputum n Hematemesis n NEURO: Urgency n Hemoptysis n Diarrhea n Headaches Frequency n Wheezing n Constipation Seizures Times at night urinating n Heamatochezia Neuropathy catheter present n MSK: Melena Focal weakness Hesitancy n Focal Numbness Incontinence n Acute joint pain Ankle pain Dizzy/Vertigo Redness n Difficulty speaking Heme/Lymph Swelling n Difficulty walking Lymphadenopathy Myalgia n Ataxia Chronic joint pain n Past Medical History: Diagnosis Date Afib (CMS/HCC) (HCC) Anxiety CHF (congestive heart failure) (HCC) COPD (chronic obstructive pulmonary disease) (HCC) Dementia (HCC) Depression Hyperlipidemia Hypertension Hypothyroid Insomnia Pulmonary HTN ([facility]) History reviewed. No pertinent surgical history. Allergies Allergen Reactions Doxycycline Other Reaction(s): Not available Gabapentin Propoxyphene Medications Prior to Admission: Current Outpatient Medications Medication Instructions apixaban (ELIQUIS) 2.5 mg, Oral, 2 times daily biotin 5 mg, Oral, Daily busPIRone (BUSPAR) 5 mg, Oral, 2 times daily calcium carbonate (TUMS) 500 mg, Oral, PRN carboxymethylcellulose (Refresh Plus) 0.5 % ophthalmic solution 2 drops, Both Eyes, 2 times daily donepezil (ARICEPT) 10 mg, Oral, Nightly escitalopram (LEXAPRO) 15 mg, Oral, Daily Fluticasone-Salmeterol (Advair Diskus) 500-50 MCG/ACT aerosol powder 1 puff, Inhalation, 2 times daily furosemide (LASIX) 20 mg, Oral, Daily levothyroxine (TIROSINT) 88 mcg, Oral, Daily before breakfast losartan (COZAAR) 50 mg, Oral, 2 times daily Melatonin 9 mg, Oral, Nightly metoprolol tartrate (LOPRESSOR) 25 mg, Oral, 2 times daily polyethylene glycol (PEG) 3350 (MIRALAX) 17 g, Oral, Daily senna-docusate (Juanis-Colace) 8.6-50 MG tablet 1 tablet, Oral, Daily spironolactone (ALDACTONE) 25 mg, Oral, Daily tiZANidine (ZANAFLEX) 4 mg, Oral, 3 times daily traZODone (DESYREL) 25 mg, Oral, Nightly Social History Social History Tobacco Use Smoking status: Unknown Smokeless tobacco: Not on file Substance Use Topics Alcohol use: Not Currently Family History No family history on file. Physical Exam Temp (24hrs), Av.9 C (98.5 F), Min:36.9 C (98.5 F), Max:36.9 C (98.5 F) Body mass index is 21.97 kg/m .BMI Classification: Normal Weight (BMI 18.5-24.9) BP (!) 163/123 Pulse 90 Temp 36.9 C (98.5 F) Resp 16 Ht 5' 4 (1.626 m) Wt 128 lb (58.1 kg) SpO2 95% BMI 21.97 kg/m Pulse Ox: SpO2 Av.2 % Min: 92 % Max: 100 % Supplemental O2: General appearance: She is calm resting in bed no significant distress HEENT: Normal cephalic, atraumatic without obvious deformity. Pupils equal, round, and reactive to light. Extra ocular muscles intact. Conjunctivae/corneas clear. Neck: Supple, with full range of motion. No jugular venous distention. Trachea midline. No lymphadenopathy. Respiratory: Lungs are clear to auscultation no crackles appreciated Cardiovascular: Regular rate and rhythm with normal S1/S2 without murmurs, rubs or gallops. Abdomen: Soft, non-tender, non-distended with normal bowel sounds. No rebound or guarding. Musculoskeletal: Lower extremities have no significant edema Skin: Skin color, texture, turgor normal. No rashes or lesions. Neurologic: Neurovascularly intact without any focal sensory/motor deficits. Cranial nerves grossly intact. Labs Admission on 10/29/2024 Component Date Value Heart Rate 10/29/2024 107 QRSD Interval 10/29/2024 84 QT Interval 10/29/2024 350 QTC Interval 10/29/2024 467 P [place] 10/29/2024 0 QRS [place]ford 10/29/2024 -40 T Wave Whiteford 10/29/[address] Interval 10/29/2024 0 SODIUM 10/29/2024 138 POTASSIUM 10/29/2024 4.0 CHLORIDE 10/29/2024 108 (H) CARBON DIOXIDE 10/29/2024 21 (L) ANION GAP 10/29/2024 9 UREA NITROGEN 10/29/2024 18 CREATININE 10/29/2024 1.06 GLUCOSE 10/29/2024 98 CALCIUM 10/29/2024 9.7 AST (SGOT) 10/29/2024 37 (H) ALT 10/29/2024 37 (H) ALKALINE PHOSPHATASE 10/29/2024 84 ALBUMIN 10/29/2024 3.6 BILIRUBIN, TOTAL 10/29/2024 0.6 TOTAL PROTEIN 10/29/2024 7.3 eGFR 10/29/2024 52.6 (L) LIPASE 10/29/2024 26 C REACTIVE PROTEIN 10/29/2024 6.5 (H) D-DIMER, INNOVANCE 10/29/2024 0.81 (H) NT PRO BNP 10/29/2024 11,795 (H) Color, Urine 10/29/2024 Light Yellow Clarity, Urine 10/29/2024 Clear pH, Urine 10/29/2024 6.5 Leukocytes, Urine 10/29/2024 Negative Nitrite, Urine 10/29/2024 Negative Protein, Urine 10/29/2024 Negative Glucose, Urine 10/29/2024 Normal Bilirubin, Urine 10/29/2024 Negative Ketones, Urine 10/29/2024 Negative Urobilinogen, Urine 10/29/2024 Normal Blood, Urine 10/29/2024 Negative SPECIFIC GRAVITY OF URIN* 10/29/2024 1.008 Troponin HS Serial Basel* 10/29/2024 19 (H) Heart Rate 10/29/2024 104 QRSD Interval 10/29/2024 93 QT Interval 10/29/2024 350 QTC Interval 10/29/2024 462 P [place] 10/29/2024 0 QRS [place] 10/29/2024 -52 T Wave Whiteford 10/29/[address] Interval 10/29/2024 0 2h Troponin HS (Serial 2* 10/29/2024 19 (H) Troponin HS Serial Basel* 10/29/2024 18 (H) SODIUM 10/29/2024 139 POTASSIUM 10/29/2024 3.9 CHLORIDE 10/29/2024 105 CARBON DIOXIDE 10/29/2024 25 UREA NITROGEN 10/29/2024 19 CREATININE 10/29/2024 1.17 (H) GLUCOSE 10/29/2024 145 (H) CALCIUM 10/29/2024 9.7 ANION GAP 10/29/2024 9 eGFR 10/29/2024 46.7 (L) MAGNESIUM 10/29/2024 2.0 SARS-CoV-2 10/29/2024 Not Detected Respiratory Syncytial Vi* 10/29/2024 Not Detected Influenza A 10/29/2024 Not Detected Influenza B 10/29/2024 Not Detected EKG Encounter Date: 10/29/24 ECG 12 lead Result Value Heart Rate 104 QRSD Interval 93 QT Interval 350 QTC Interval 462 P [place] 0 QRS Whiteford -[address] Interval 0 Impression Atrial fibrillation Left anterior fascicular block Anteroseptal infarct, old Abnormal T, consider ischemia, lateral leads Scheduled PRN melatonin, 3 mg, Oral, Nightly metoprolol tartrate, 25 mg, Oral, BID nitroglycerin, 1 patch, TransDERmal, Once Continuous Assessment/Plan and Medical Decision Making 84-year-old who presents to the hospital with A-fib RVR and elevated BNP She comes from facility. Was recently hospitalized here 2 weeks ago and had medications adjusted At home she is already on anticoagulation with apixaban which I will continue she is on beta-blockers of metoprolol which I will continue in the emergency room she received several doses of as needed Lopressor IV and p.o. pulse is now improved but still over 100. I suspect A-fib RVR to be the main cause of her admission. She does have elevated BNP but this can be elevated in patients with A-fib especially rapid rate. On exam she has no crackles she has no peripheral edema. She was given some furosemide outside hospital but because of her known recent normal EF and the fact that she looks dry on exam and her creatinine slightly up I will not add any further diuresis yet. Cardiology to see and evaluate for A-fib RVR Elevated creatinine I will hold off on further diuresis on exam looks euvolemic to dry she was given some furosemide outside emergency room Lab Results Component Value Date CREATININE 1.17 (H) 10/29/2024 CREATININE 1.06 10/29/2024 CREATININE 0.78 10/19/2024 CREATININE 0.99 10/18/2024 CREATININE 0.61 10/18/2024 CREATININE 0.87 10/17/2024 CREATININE 0.81 04/11/2024 CREATININE 0.73 04/11/2024 CREATININE 1.03 04/10/2024 Hypertension Multiple elevated values in the 150s to 160s some a little higher some a little lower I resumed her home Lopressor. As above I am currently holding her spironolactone losartan and furosemide due to renal insufficiency I will add in as needed BP control may need some adjustment depending on morning creatinine level Resume diet I discussed the need for admission with the emergency provider. -DVT prophylaxis: [] Lovenox [] Heparin [] SCDs [x] Encourage ambulation [x] Already on Anticoagulation [] Pharmocologic prophylaxis on hold to due risk bleed/procedure [] Low risk, ambulatory [] Both pharmacologic and mechanical contraindicated 50 minutes - Time spent on admission 10/30/2024 Sommer Friedman [id number] Any scheduled follow up appointments Future Appointments Date Time Provider Department Center 11/19/2024 1:00 PM Tevin Conner MD [facility] Emergency Contact Information Primary Emergency Contact: Parris Friedman Mobile Relation: Son Secondary Emergency Contact: Jaylan Friedman Mobile Relation: Son Preferred language: Salvadorean Roll Cutter needed? No Portions of this note may be electronically transcribed. Please forward a copy of this H&P to the primary care physician. [employer] Phone: 10-30-2024 Note [facility] 10-30-2024 History and physical note History and Physical [facility] Sommer Friedman : 1940 AGE 84 y.o. YEARS Note Date 10/30/2024 Primary Care Physician:Kathi Juarez MD Current Providers as of 10/29/2024 PCP: Kathi Juarez MD Referring Provider: not found, starting on MonOct 29, 2024 12:00 AM Admitting Provider: Toribio Shepherd MD, (Active) Attending Provider: Marcos Araujo MD, starting on MonOct 29, 2024 9:35 AM, ending on MonOct 30, 2024 1:27 AM (Inactive) Attending Provider: Toribio Shepherd MD, starting on MonOct 29, 2024 12:40 PM (Active) Registered Nurse: Nina Baron RN, starting on MonOct 29, 2024 9:29 AM, ending on MonOct 29, 2024 7:32 PM (Inactive) Registered Nurse: Alysa Lugo RN, starting on MonOct 29, 2024 6:54 PM, ending on MonOct 30, 2024 1:27 AM (Inactive) Registered Nurse: Ana Hayes RN, starting on MonOct 30, 2024 1:39 AM (Active) Chief Complaint: Irregular Heart Beat HPI: She is alert to name and date. She was currently at [facility]. There she was sent over to [place] ED for rapid heart rate. Also reports that she had a couple episodes of vomiting couple episodes of nonbloody diarrhea. She was seen at [place] had elevated BNP was given some furosemide and referred over here for admission for A-fib RVR and CHF. I am unable to get much history from her she only mentions a few things not able to give me much detailed history chart review in the computer shows that she was discharged here on October 19 which was approximately 2 weeks ago that time she was treated with A-fib RVR CHF and Proteus mirabilis UTI. In the interim on October 24 she did have a ER visit for confusion As I see her in the room she is calm resting in bed she is not complaining of any pain palpitations she had some vomiting and nausea earlier along with some loose stools but does not currently have this when I am in the room with her Review of Systems: Chancer is notable almost all questions I asked her General: Skin: HEENT: Cardiovascular It was reported she had palpitations although she could not tell me this Fever n Rashes n Difficulty chewing n Chest Pain n Chills n Sores n Appetite Loss n Chest Pressure n Fatigue n Epistaxis Orthopnea n Sweats n Hearing loss Palpitations n GI: Tinnitus GERD n Vision quality RESP: Abdominal Pain n : SOB/DELANEY n Nausea y Hematuria n Cough n Vomiting y Dysuria n Productive/Sputum n Hematemesis n NEURO: Urgency n Hemoptysis n Diarrhea n Headaches Frequency n Wheezing n Constipation Seizures Times at night urinating n Heamatochezia Neuropathy catheter present n MSK: Melena Focal weakness Hesitancy n Focal Numbness Incontinence n Acute joint pain Ankle pain Dizzy/Vertigo Redness n Difficulty speaking Heme/Lymph Swelling n Difficulty walking Lymphadenopathy Myalgia n Ataxia Chronic joint pain n Past Medical History: Diagnosis Date Afib (CMS/HCC) (HCC) Anxiety CHF (congestive heart failure) (HCC) COPD (chronic obstructive pulmonary disease) (HCC) Dementia (HCC) Depression Hyperlipidemia Hypertension Hypothyroid Insomnia Pulmonary HTN (HCC) History reviewed. No pertinent surgical history. Allergies Allergen Reactions Doxycycline Other Reaction(s): Not available Gabapentin Propoxyphene Medications Prior to Admission: Current Outpatient Medications Medication Instructions apixaban (ELIQUIS) 2.5 mg, Oral, 2 times daily biotin 5 mg, Oral, Daily busPIRone (BUSPAR) 5 mg, Oral, 2 times daily calcium carbonate (TUMS) 500 mg, Oral, PRN carboxymethylcellulose (Refresh Plus) 0.5 % ophthalmic solution 2 drops, Both Eyes, 2 times daily donepezil (ARICEPT) 10 mg, Oral, Nightly escitalopram (LEXAPRO) 15 mg, Oral, Daily Fluticasone-Salmeterol (Advair Diskus) 500-50 MCG/ACT aerosol powder 1 puff, Inhalation, 2 times daily furosemide (LASIX) 20 mg, Oral, Daily levothyroxine (TIROSINT) 88 mcg, Oral, Daily before breakfast losartan (COZAAR) 50 mg, Oral, 2 times daily Melatonin 9 mg, Oral, Nightly metoprolol tartrate (LOPRESSOR) 25 mg, Oral, 2 times daily polyethylene glycol (PEG) 3350 (MIRALAX) 17 g, Oral, Daily senna-docusate (Juanis-Colace) 8.6-50 MG tablet 1 tablet, Oral, Daily spironolactone (ALDACTONE) 25 mg, Oral, Daily tiZANidine (ZANAFLEX) 4 mg, Oral, 3 times daily traZODone (DESYREL) 25 mg, Oral, Nightly Social History Social History Tobacco Use Smoking status: Unknown Smokeless tobacco: Not on file Substance Use Topics Alcohol use: Not Currently Family History No family history on file. Physical Exam Temp (24hrs), Av.9 C (98.5 F), Min:36.9 C (98.5 F), Max:36.9 C (98.5 F) Body mass index is 21.97 kg/m .BMI Classification: Normal Weight (BMI 18.5-24.9) BP (!) 163/123 Pulse 90 Temp 36.9 C (98.5 F) Resp 16 Ht 5' 4 (1.626 m) Wt 128 lb (58.1 kg) SpO2 95% BMI 21.97 kg/m Pulse Ox: SpO2 Av.2 % Min: 92 % Max: 100 % Supplemental O2: General appearance: She is calm resting in bed no significant distress HEENT: Normal cephalic, atraumatic without obvious deformity. Pupils equal, round, and reactive to light. Extra ocular muscles intact. Conjunctivae/corneas clear. Neck: Supple, with full range of motion. No jugular venous distention. Trachea midline. No lymphadenopathy. Respiratory: Lungs are clear to auscultation no crackles appreciated Cardiovascular: Regular rate and rhythm with normal S1/S2 without murmurs, rubs or gallops. Abdomen: Soft, non-tender, non-distended with normal bowel sounds. No rebound or guarding. Musculoskeletal: Lower extremities have no significant edema Skin: Skin color, texture, turgor normal. No rashes or lesions. Neurologic: Neurovascularly intact without any focal sensory/motor deficits. Cranial nerves grossly intact. Labs Admission on 10/29/2024 Component Date Value Heart Rate 10/29/2024 107 QRSD Interval 10/29/2024 84 QT Interval 10/29/2024 350 QTC Interval 10/29/2024 467 P [place] 10/29/2024 0 QRS [place]ford 10/29/2024 -40 T Wave Whiteford 10/29/[address] Interval 10/29/2024 0 SODIUM 10/29/2024 138 POTASSIUM 10/29/2024 4.0 CHLORIDE 10/29/2024 108 (H) CARBON DIOXIDE 10/29/2024 21 (L) ANION GAP 10/29/2024 9 UREA NITROGEN 10/29/2024 18 CREATININE 10/29/2024 1.06 GLUCOSE 10/29/2024 98 CALCIUM 10/29/2024 9.7 AST (SGOT) 10/29/2024 37 (H) ALT 10/29/2024 37 (H) ALKALINE PHOSPHATASE 10/29/2024 84 ALBUMIN 10/29/2024 3.6 BILIRUBIN, TOTAL 10/29/2024 0.6 TOTAL PROTEIN 10/29/2024 7.3 eGFR 10/29/2024 52.6 (L) LIPASE 10/29/2024 26 C REACTIVE PROTEIN 10/29/2024 6.5 (H) D-DIMER, INNOVANCE 10/29/2024 0.81 (H) NT PRO BNP 10/29/2024 11,795 (H) Color, Urine 10/29/2024 Light Yellow Clarity, Urine 10/29/2024 Clear pH, Urine 10/29/2024 6.5 Leukocytes, Urine 10/29/2024 Negative Nitrite, Urine 10/29/2024 Negative Protein, Urine 10/29/2024 Negative Glucose, Urine 10/29/2024 Normal Bilirubin, Urine 10/29/2024 Negative Ketones, Urine 10/29/2024 Negative Urobilinogen, Urine 10/29/2024 Normal Blood, Urine 10/29/2024 Negative SPECIFIC GRAVITY OF URIN* 10/29/2024 1.008 Troponin HS Serial Basel* 10/29/2024 19 (H) Heart Rate 10/29/2024 104 QRSD Interval 10/29/2024 93 QT Interval 10/29/2024 350 QTC Interval 10/29/2024 462 P [place] 10/29/2024 0 QRS [place] 10/29/2024 -52 T Wave Whiteford 10/29/[address] Interval 10/29/2024 0 2h Troponin HS (Serial 2* 10/29/2024 19 (H) Troponin HS Serial Basel* 10/29/2024 18 (H) SODIUM 10/29/2024 139 POTASSIUM 10/29/2024 3.9 CHLORIDE 10/29/2024 105 CARBON DIOXIDE 10/29/2024 25 UREA NITROGEN 10/29/2024 19 CREATININE 10/29/2024 1.17 (H) GLUCOSE 10/29/2024 145 (H) CALCIUM 10/29/2024 9.7 ANION GAP 10/29/2024 9 eGFR 10/29/2024 46.7 (L) MAGNESIUM 10/29/2024 2.0 SARS-CoV-2 10/29/2024 Not Detected Respiratory Syncytial Vi* 10/29/2024 Not Detected Influenza A 10/29/2024 Not Detected Influenza B 10/29/2024 Not Detected EKG Encounter Date: 10/29/24 ECG 12 lead Result Value Heart Rate 104 QRSD Interval 93 QT Interval 350 QTC Interval 462 P [place] 0 QRS Whiteford -52 T Wave [place] 0 CT Interval 0 Impression Atrial fibrillation Left anterior fascicular block Anteroseptal infarct, old Abnormal T, consider ischemia, lateral leads Scheduled PRN melatonin, 3 mg, Oral, Nightly metoprolol tartrate, 25 mg, Oral, BID nitroglycerin, 1 patch, TransDERmal, Once Continuous Assessment/Plan and Medical Decision Making 84-year-old who presents to the hospital with A-fib RVR and elevated BNP She comes from facility. Was recently hospitalized here 2 weeks ago and had medications adjusted At home she is already on anticoagulation with apixaban which I will continue she is on beta-blockers of metoprolol which I will continue in the emergency room she received several doses of as needed Lopressor IV and p.o. pulse is now improved but still over 100. I suspect A-fib RVR to be the main cause of her admission. She does have elevated BNP but this can be elevated in patients with A-fib especially rapid rate. On exam she has no crackles she has no peripheral edema. She was given some furosemide outside hospital but because of her known recent normal EF and the fact that she looks dry on exam and her creatinine slightly up I will not add any further diuresis yet. Cardiology to see and evaluate for A-fib RVR Elevated creatinine I will hold off on further diuresis on exam looks euvolemic to dry she was given some furosemide outside emergency room Lab Results Component Value Date CREATININE 1.17 (H) 10/29/2024 CREATININE 1.06 10/29/2024 CREATININE 0.78 10/19/2024 CREATININE 0.99 10/18/2024 CREATININE 0.61 10/18/2024 CREATININE 0.87 10/17/2024 CREATININE 0.81 04/11/2024 CREATININE 0.73 04/11/2024 CREATININE 1.03 04/10/2024 Hypertension Multiple elevated values in the 150s to 160s some a little higher some a little lower I resumed her home Lopressor. As above I am currently holding her spironolactone losartan and furosemide due to renal insufficiency I will add in as needed BP control may need some adjustment depending on morning creatinine level Resume diet I discussed the need for admission with the emergency provider. -DVT prophylaxis: [] Lovenox [] Heparin [] SCDs [x] Encourage ambulation [x] Already on Anticoagulation [] Pharmocologic prophylaxis on hold to due risk bleed/procedure [] Low risk, ambulatory [] Both pharmacologic and mechanical contraindicated 50 minutes - Time spent on admission 10/30/2024 Sommer Friedman [id number] Any scheduled follow up appointments Future Appointments Date Time Provider Department Center 11/19/2024 1:00 PM [facility] Contact Information Primary Emergency Contact: Parris Friedman Mobile Relation: Son Secondary Emergency Contact: Jaylan Friedman Mobile Relation: Son Preferred language: Salvadorean Roll Cutter needed? No Portions of this note may be electronically transcribed. Please forward a copy of this H&P to the primary care physician. documented in this encounter [facility] 10-30-2024 Emergency department Note Report called to 2E nurse [facility] 10-30-2024 Emergency department Note Report called to 2E nurse Report called to [facility] was called to notify of patient being discharged and to give report[facility] and DON and they refused to accept the patient. Patient will now be admitted to [facility]. [facility] notifed that patient will need a private room due to vomiting and diarrhea. Jon Goode was notified that the ride was cancelled in roundtrip due to patient needing admission. Patient has been incontinent of three loose bowel movements. Patient had a small emesis. Linens and gown changed, juanis care given. New purwick applied. Patient is also c/o leg cramps. Dr. Araujo aware. Pur wick initiated due to incontinence, and strict intake and output. EMERGENCY DEPARTMENT ENCOUNTER Pt Name: Sommer Friedman Birthdate 1940 Date of evaluation: 10/29/2024 CHIEF COMPLAINT Chief Complaint Patient presents with Irregular Heart Beat HISTORY OF PRESENT ILLNESS HPI Sommer Friedman is a 84 y.o. female who presents to the emergency department with insomnia, though facility called the nurse practitioner nurse practitioner referred patient to the emergency department. Patient reports some shortness of breath that is intermittent lasting for approximately 5 minutes. No vomiting no diarrhea no constipation no dysuria no alcohol use recently. She reports she is healthy as a horse. No severe pain. Denies paroxysmal nocturnal dyspnea. Reports she was not able to sleep because of racing thoughts. Per her son patient is in [facility] she is walker to wheelchair bound. REVIEW OF SYSTEMS Review of Systems Patient Active Problem List Diagnosis Low back pain without sciatica, unspecified back pain laterality, unspecified chronicity Lumbago New onset atrial fibrillation (HCC) Cognitive communication deficit Dementia (HCC) Acute decompensated heart failure (HCC) CURRENT MEDICATIONS Previous Medications APIXABAN (ELIQUIS) 2.5 MG TABLET Take 2.5 mg by mouth 2 times daily. BIOTIN 5 MG CAPSULE Take 5 mg by mouth daily. BUSPIRONE (BUSPAR) 5 MG TABLET Take 5 mg by mouth 2 times daily. CALCIUM CARBONATE (TUMS) 500 MG CHEWABLE TABLET Chew 500 mg as needed for indigestion or heartburn. CARBOXYMETHYLCELLULOSE (REFRESH PLUS) 0.5 % OPHTHALMIC SOLUTION Administer 2 drops into both eyes in the morning and 2 drops in the evening. DONEPEZIL (ARICEPT) 10 MG TABLET Take 10 mg by mouth Nightly. ESCITALOPRAM (LEXAPRO) 10 MG TABLET Take 15 mg by mouth daily. FLUTICASONE-SALMETEROL (ADVAIR DISKUS) 500-50 MCG/ACT AEROSOL POWDER Inhale 1 puff in the morning and 1 puff in the evening. FUROSEMIDE (LASIX) 20 MG TABLET Take 20 mg by mouth daily. LEVOTHYROXINE (TIROSINT) 88 MCG CAPSULE Take 88 mcg by mouth every morning (before breakfast). LOSARTAN (COZAAR) 50 MG TABLET Take 50 mg by mouth 2 times daily. MELATONIN 3 MG TABLET DISPERSIBLE Take 9 mg by mouth Nightly. METOPROLOL TARTRATE (LOPRESSOR) 25 MG TABLET Take 1 tablet (25 mg) by mouth 2 times daily. POLYETHYLENE GLYCOL, PEG, 3350 (MIRALAX) 17 G PACKET Take 17 g by mouth daily. SENNA-DOCUSATE (JUANIS-COLACE) 8.6-50 MG TABLET Take 1 tablet by mouth daily. SPIRONOLACTONE (ALDACTONE) 25 MG TABLET Take 1 tablet (25 mg) by mouth daily. TIZANIDINE (ZANAFLEX) 4 MG TABLET Take 4 mg by mouth in the morning and 4 mg at noon and 4 mg in the evening. TRAZODONE (DESYREL) 50 MG TABLET Take 25 mg by mouth Nightly. ALLERGIES Doxycycline, Gabapentin, and Propoxyphene SOCIAL HISTORY Social History Tobacco Use Smoking status: Unknown Vaping Use Vaping status: Unknown Substance Use Topics Alcohol use: Not Currently Drug use: Not Currently PHYSICAL EXAM Vitals: 10/29/24 1755 10/29/24 1817 10/29/24 1825 10/29/24 1856 BP: (!) 185/108 (!) 165/108 (!) 183/95 (!) 192/83 Pulse: (!) 121 102 98 90 Resp: 24 15 20 18 Temp: SpO2: 96% 93% 96% 94% Weight: Height: Physical Exam Vitals and nursing note reviewed. Constitutional: Appearance: She is normal weight. She is not toxic-appearing. Eyes: Extraocular Movements: Extraocular movements intact. Conjunctiva/sclera: Conjunctivae normal. Pupils: Pupils are equal, round, and reactive to light. Cardiovascular: Rate and Rhythm: Normal rate. Heart sounds: Murmur heard. Systolic murmur is present with a grade of 1/6. No gallop. No S4 sounds. Pulmonary: Effort: Pulmonary effort is normal. Breath sounds: Normal breath sounds. Abdominal: General: Bowel sounds are normal. There is no distension. Palpations: Abdomen is soft. Tenderness: There is no abdominal tenderness. There is no right CVA tenderness, left CVA tenderness or guarding. Hernia: No hernia is present. Musculoskeletal: Right lower leg: No swelling or tenderness. Left lower leg: No swelling or tenderness. Skin: Coloration: Skin is not jaundiced. Neurological: Mental Status: She is alert and oriented to person, place, and time. Cranial Nerves: Cranial nerves 2-12 are intact. Sensory: Sensation is intact. Motor: Motor function is intact. Coordination: Ppasen-Yeod-Djftqs Test normal. Gait: Gait is intact. Deep Tendon Reflexes: Reflexes are normal and symmetric. Comments: Nihss=0 Psychiatric: Behavior: Behavior normal. Thought Content: Thought content normal. SCREENINGS Stacy Coma Scale Best Eye Response: Spontaneous Best Verbal Response: Oriented Best Motor Response: Follows commands [place] Coma Scale Score: 15 Medical decision making DIAGNOSTIC RESULTS Procedures/EKG: Physician EKG interpretation can be found in [facility] if done Radiologist results reviewed: XR chest 2 views Final Result Mild atelectasis in left lung base. Report Dictated on Electronically Signed By: Jt Munson MD Electronically Signed Date/Time: 10/29/2024 10:55 AM EDT LABS: Labs Reviewed COMPREHENSIVE METABOLIC PANEL - Abnormal Result Value SODIUM 138 POTASSIUM 4.0 CHLORIDE 108 (*) CARBON DIOXIDE 21 (*) ANION GAP 9 UREA NITROGEN 18 CREATININE 1.06 GLUCOSE 98 CALCIUM 9.7 AST (SGOT) 37 (*) ALT 37 (*) ALKALINE PHOSPHATASE 84 ALBUMIN 3.6 BILIRUBIN, TOTAL 0.6 TOTAL PROTEIN 7.3 eGFR 52.6 (*) C-REACTIVE PROTEIN - Abnormal C REACTIVE PROTEIN 6.5 (*) D-DIMER,QUANTITATIVE - Abnormal D-DIMER, INNOVANCE 0.81 (*) Narrative: Innovance D-Dimer values of <0.50 mg/L FEU can be used in combination with a pre-test probability model (e.g. Well's) to exclude pulmonary embolism (PE) disease, as well as an aid in the diagnosis of deep vein thrombosis (DVT). NT PRO BNP - Abnormal NT PRO BNP 11,795 (*) HIGH SENSITIVITY TROPONIN, SERIAL BASELINE - Abnormal Troponin HS Serial Baseline 19 (*) HIGH SENSITIVITY TROPONIN, SERIAL, SECOND TEST - Abnormal 2h Troponin HS (Serial 2nd Troponin) 19 (*) HIGH SENSITIVITY TROPONIN, SERIAL BASELINE - Abnormal Troponin HS Serial Baseline 18 (*) BASIC METABOLIC PANEL - Abnormal SODIUM 139 POTASSIUM 3.9 CHLORIDE 105 CARBON DIOXIDE 25 UREA NITROGEN 19 CREATININE 1.17 (*) GLUCOSE 145 (*) CALCIUM 9.7 ANION GAP 9 eGFR 46.7 (*) LIPASE - Normal LIPASE 26 COMPLETE URINALYSIS - Normal Color, Urine Light Yellow Clarity, Urine Clear pH, Urine 6.5 Leukocytes, Urine Negative Nitrite, Urine Negative Protein, Urine Negative Glucose, Urine Normal Bilirubin, Urine Negative Ketones, Urine Negative Urobilinogen, Urine Normal Blood, Urine Negative SPECIFIC GRAVITY OF URINE (NUMERIC) 1.008 MAGNESIUM - Normal MAGNESIUM 2.0 Narrative: Higher values can be expected in females during menses. COMPLETE URINALYSIS WITH REFLEX TO CULTURE Narrative: The following orders were created for panel order Urinalysis complete with reflex to Culture. Procedure Abnormality Status --------- ------ Complete Urinalysis[[id number]] Normal Final result Please view results for these tests on the individual orders. RADIOLOGY : Medications ordered: Medications nitroglycerin (Nitrodur) 0.4 MG/HR patch 1 patch (1 patch TransDERmal Medication Applied 10/29/24 165) metoprolol tartrate (Lopressor) tablet 50 mg (50 mg Oral Given 10/29/24 1101) furosemide (Lasix) injection 20 mg (20 mg IntraVENous Given 10/29/24 1112) metoprolol tartrate (Lopressor) tablet 25 mg (25 mg Oral Given 10/29/24 1146) metoprolol tartrate (Lopressor) tablet 25 mg (25 mg Oral Given 10/29/24 1433) furosemide (Lasix) injection 40 mg (40 mg IntraVENous Given 10/29/24 1434) metoprolol tartrate (Lopressor) injection 5 mg (5 mg IntraVENous Given 10/29/24 1554) metoprolol tartrate (Lopressor) injection 5 mg (5 mg IntraVENous Given 10/29/24 1656) metoprolol tartrate (Lopressor) injection 5 mg (5 mg IntraVENous Given 10/29/24 1754) prochlorperazine (Compazine) injection 5 mg (5 mg IntraVENous Given 10/29/24 1747) ED Course as of 10/29/241910Oct 29, 2024 0940 CBC (10/19/24 0256)(!) Prior medical records were reviewed: looks good [NM] 0940 Magnesium (10/18/24 1634) Prior medical records were reviewed: normal [NM] 0941 TSH (10/17/24 1440) Prior medical records were reviewed: normal [NM] ED Course User Index [NM] Marcos Araujo MD Diagnoses as of 10/29/241910 Acute decompensated heart failure (HCC) Atrial fibrillation with rapid ventricular response (HCC) * No order type specified * Our workup consisted of ordering/reviewing: Orders Placed This Encounter Procedures XR chest 2 views Comprehensive metabolic panel Lipase Urinalysis complete with reflex to Culture C-reactive protein D-dimer, quantitative NT PRO BNP Complete Urinalysis Serial Troponin, High Sensitivity Troponin, High Sensitivity, Serial, Second Test Serial Troponin, High Sensitivity Basic metabolic panel Magnesium [facility] Pulse Oximetry Vital Signs Strict intake and output Telemetry monitoring for Arrhythmia Management ECG 12 lead ECG 12 lead Insert peripheral IV Admit to inpatient MDM: 84 y.o. presented with mild shortness of breath. The differential diagnosis considered: Failure, blood clot, pneumothorax, kidney failure, infection,. Age-adjusted D-dimer is normal unlikely blood clot. Patient's care was impacted by comorbidity of Heart disease increasing her risk for heart failure hence workup was initiated with x-ray and proBNP testing. Radiology: X-ray was independently interpreted by myself: Chest: Interstitial prominence left base, no pneumothorax no pleural effusion on the right side, normal mediastinum, breast prosthesis when compared to prior x-ray from last month improved. Diagnostic tests considered but not performed: ct chest with contrast. Age adjusted d dimer is normal. Hospitalization for acute decompensated heart failure, atrial fibrillation with rapid ventricular response. Mild shortness of breath intermittently. On room air. SpO2 more than 90%. Blood pressure is stable. Afebrile. proBNP approximately 11,000. Chest x-ray with some vascular congestion. Troponin 19 ng/L. DELTA Troponin normal 1837 she is doing better hr improved rr improved. REVAL: CRITICAL CARE TIME PROCEDURES: Procedures FINAL IMPRESSION 1. Acute decompensated heart failure (HCC) 2. Atrial fibrillation with rapid ventricular response (HCC) DISPOSITION/PLAN DISPOSITION Admit 10/29/2024 07:11:08 PM Case was discussed with TORIBIO Aguirre and patient was accepted for admission to [facility] PATIENT REFERRED TO: Kathi Juarez MD [address] [facility] [phone] Call in 1 day Roney Jerry MD [address] [facility] [phone] Call in [address] day [address] [facility] [phone] Call in 1 day I prescribed: New Prescriptions No medications on file (Comment: this report has been produced using speech recognition software and may contain errors related to that system including errors in grammar, punctuation, and spelling, as well as words and phrases that may be inappropriate) Marcos Araujo MD (electronically signed) Marcos Araujo MD 10/29/241910 Patient to room 4 with c/o atrial fibrillation that is chronic via [facility]. Per EMS it was reported to them that the patient did not sleep well last night. V/S obtained, EKG completed, call light within reach. documented in this encounter [facility] 10-30-2024 Emergency department Note Report called to [facility] 10-29-2024 Emergency department Note Wen was called to notify of patient being discharged and to give report. [facility] RN notified their FIELD HANDYMAN and DON and they refused to accept the patient. Patient will now be admitted to [facility]. [facility] notifed that patient will need a private room due to vomiting and diarrhea. Jon Goode was notified that the ride was cancelled in roundtrip due to patient needing admission. [facility] 10-29-2024 Emergency department Note Patient has been incontinent of three loose bowel movements. Patient had a small emesis. Linens and gown changed, juanis care given. New purwick applied. Patient is also c/o leg cramps. Dr. Araujo aware. [facility] 10-29-2024 Emergency department Note Pur wick initiated due to incontinence, and strict intake and output. [facility] 10-29-2024 Emergency department Triage note Patient to room 4 with c/o atrial fibrillation that is chronic via [facility]. Per EMS it was reported to them that the patient did not sleep well last night. V/S obtained, EKG completed, call light within reach. [facility] 10-29-2024 Physician Emergency department Note EMERGENCY DEPARTMENT ENCOUNTER Pt Name: Sommer Friedman Birthdate 1940 Date of evaluation: 10/29/2024 CHIEF COMPLAINT Chief Complaint Patient presents with Irregular Heart Beat HISTORY OF PRESENT ILLNESS HPI Sommer Friedman is a 84 y.o. female who presents to the emergency department with insomnia, though facility called the nurse practitioner nurse practitioner referred patient to the emergency department. Patient reports some shortness of breath that is intermittent lasting for approximately 5 minutes. No vomiting no diarrhea no constipation no dysuria no alcohol use recently. She reports she is healthy as a horse. No severe pain. Denies paroxysmal nocturnal dyspnea. Reports she was not able to sleep because of racing thoughts. Per her son patient is in [facility] she is walker to wheelchair bound. REVIEW OF SYSTEMS Review of Systems Patient Active Problem List Diagnosis Low back pain without sciatica, unspecified back pain laterality, unspecified chronicity Lumbago New onset atrial fibrillation (HCC) Cognitive communication deficit Dementia (HCC) Acute decompensated heart failure (HCC) CURRENT MEDICATIONS Previous Medications APIXABAN (ELIQUIS) 2.5 MG TABLET Take 2.5 mg by mouth 2 times daily. BIOTIN 5 MG CAPSULE Take 5 mg by mouth daily. BUSPIRONE (BUSPAR) 5 MG TABLET Take 5 mg by mouth 2 times daily. CALCIUM CARBONATE (TUMS) 500 MG CHEWABLE TABLET Chew 500 mg as needed for indigestion or heartburn. CARBOXYMETHYLCELLULOSE (REFRESH PLUS) 0.5 % OPHTHALMIC SOLUTION Administer 2 drops into both eyes in the morning and 2 drops in the evening. DONEPEZIL (ARICEPT) 10 MG TABLET Take 10 mg by mouth Nightly. ESCITALOPRAM (LEXAPRO) 10 MG TABLET Take 15 mg by mouth daily. FLUTICASONE-SALMETEROL (ADVAIR DISKUS) 500-50 MCG/ACT AEROSOL POWDER Inhale 1 puff in the morning and 1 puff in the evening. FUROSEMIDE (LASIX) 20 MG TABLET Take 20 mg by mouth daily. LEVOTHYROXINE (TIROSINT) 88 MCG CAPSULE Take 88 mcg by mouth every morning (before breakfast). LOSARTAN (COZAAR) 50 MG TABLET Take 50 mg by mouth 2 times daily. MELATONIN 3 MG TABLET DISPERSIBLE Take 9 mg by mouth Nightly. METOPROLOL TARTRATE (LOPRESSOR) 25 MG TABLET Take 1 tablet (25 mg) by mouth 2 times daily. POLYETHYLENE GLYCOL, PEG, 3350 (MIRALAX) 17 G PACKET Take 17 g by mouth daily. SENNA-DOCUSATE (JUANIS-COLACE) 8.6-50 MG TABLET Take 1 tablet by mouth daily. SPIRONOLACTONE (ALDACTONE) 25 MG TABLET Take 1 tablet (25 mg) by mouth daily. TIZANIDINE (ZANAFLEX) 4 MG TABLET Take 4 mg by mouth in the morning and 4 mg at noon and 4 mg in the evening. TRAZODONE (DESYREL) 50 MG TABLET Take 25 mg by mouth Nightly. ALLERGIES Doxycycline, Gabapentin, and Propoxyphene SOCIAL HISTORY Social History Tobacco Use Smoking status: Unknown Vaping Use Vaping status: Unknown Substance Use Topics Alcohol use: Not Currently Drug use: Not Currently PHYSICAL EXAM Vitals: 10/29/24 1755 10/29/24 1817 10/29/24 1825 10/29/24 1856 BP: (!) 185/108 (!) 165/108 (!) 183/95 (!) 192/83 Pulse: (!) 121 102 98 90 Resp: 24 15 20 18 Temp: SpO2: 96% 93% 96% 94% Weight: Height: Physical Exam Vitals and nursing note reviewed. Constitutional: Appearance: She is normal weight. She is not toxic-appearing. Eyes: Extraocular Movements: Extraocular movements intact. Conjunctiva/sclera: Conjunctivae normal. Pupils: Pupils are equal, round, and reactive to light. Cardiovascular: Rate and Rhythm: Normal rate. Heart sounds: Murmur heard. Systolic murmur is present with a grade of 1/6. No gallop. No S4 sounds. Pulmonary: Effort: Pulmonary effort is normal. Breath sounds: Normal breath sounds. Abdominal: General: Bowel sounds are normal. There is no distension. Palpations: Abdomen is soft. Tenderness: There is no abdominal tenderness. There is no right CVA tenderness, left CVA tenderness or guarding. Hernia: No hernia is present. Musculoskeletal: Right lower leg: No swelling or tenderness. Left lower leg: No swelling or tenderness. Skin: Coloration: Skin is not jaundiced. Neurological: Mental Status: She is alert and oriented to person, place, and time. Cranial Nerves: Cranial nerves 2-12 are intact. Sensory: Sensation is intact. Motor: Motor function is intact. Coordination: Ecdfyf-Vlle-Xczkrg Test normal. Gait: Gait is intact. Deep Tendon Reflexes: Reflexes are normal and symmetric. Comments: Nihss=0 Psychiatric: Behavior: Behavior normal. Thought Content: Thought content normal. SCREENINGS Stacy Coma Scale Best Eye Response: Spontaneous Best Verbal Response: Oriented Best Motor Response: Follows commands Stacy Coma Scale Score: 15 Medical decision making DIAGNOSTIC RESULTS Procedures/EKG: Physician EKG interpretation can be found in [facility] if done Radiologist results reviewed: XR chest 2 views Final Result Mild atelectasis in left lung base. Report Dictated on Electronically Signed By: Jt Munson MD Electronically Signed Date/Time: 10/29/2024 10:55 AM EDT LABS: Labs Reviewed COMPREHENSIVE METABOLIC PANEL - Abnormal Result Value SODIUM 138 POTASSIUM 4.0 CHLORIDE 108 (*) CARBON DIOXIDE 21 (*) ANION GAP 9 UREA NITROGEN 18 CREATININE 1.06 GLUCOSE 98 CALCIUM 9.7 AST (SGOT) 37 (*) ALT 37 (*) ALKALINE PHOSPHATASE 84 ALBUMIN 3.6 BILIRUBIN, TOTAL 0.6 TOTAL PROTEIN 7.3 eGFR 52.6 (*) C-REACTIVE PROTEIN - Abnormal C REACTIVE PROTEIN 6.5 (*) D-DIMER,QUANTITATIVE - Abnormal D-DIMER, INNOVANCE 0.81 (*) Narrative: Innovance D-Dimer values of <0.50 mg/L FEU can be used in combination with a pre-test probability model (e.g. Well's) to exclude pulmonary embolism (PE) disease, as well as an aid in the diagnosis of deep vein thrombosis (DVT). NT PRO BNP - Abnormal NT PRO BNP 11,795 (*) HIGH SENSITIVITY TROPONIN, SERIAL BASELINE - Abnormal Troponin HS Serial Baseline 19 (*) HIGH SENSITIVITY TROPONIN, SERIAL, SECOND TEST - Abnormal 2h Troponin HS (Serial 2nd Troponin) 19 (*) HIGH SENSITIVITY TROPONIN, SERIAL BASELINE - Abnormal Troponin HS Serial Baseline 18 (*) BASIC METABOLIC PANEL - Abnormal SODIUM 139 POTASSIUM 3.9 CHLORIDE 105 CARBON DIOXIDE 25 UREA NITROGEN 19 CREATININE 1.17 (*) GLUCOSE 145 (*) CALCIUM 9.7 ANION GAP 9 eGFR 46.7 (*) LIPASE - Normal LIPASE 26 COMPLETE URINALYSIS - Normal Color, Urine Light Yellow Clarity, Urine Clear pH, Urine 6.5 Leukocytes, Urine Negative Nitrite, Urine Negative Protein, Urine Negative Glucose, Urine Normal Bilirubin, Urine Negative Ketones, Urine Negative Urobilinogen, Urine Normal Blood, Urine Negative SPECIFIC GRAVITY OF URINE (NUMERIC) 1.008 MAGNESIUM - Normal MAGNESIUM 2.0 Narrative: Higher values can be expected in females during menses. COMPLETE URINALYSIS WITH REFLEX TO CULTURE Narrative: The following orders were created for panel order Urinalysis complete with reflex to Culture. Procedure Abnormality Status --------- ------ Complete Urinalysis[[id number]] Normal Final result Please view results for these tests on the individual orders. RADIOLOGY : Medications ordered: Medications nitroglycerin (Nitrodur) 0.4 MG/HR patch 1 patch (1 patch TransDERmal Medication Applied 10/29/24 1654) metoprolol tartrate (Lopressor) tablet 50 mg (50 mg Oral Given 10/29/24 1101) furosemide (Lasix) injection 20 mg (20 mg IntraVENous Given 10/29/24 1112) metoprolol tartrate (Lopressor) tablet 25 mg (25 mg Oral Given 10/29/24 1146) metoprolol tartrate (Lopressor) tablet 25 mg (25 mg Oral Given 10/29/24 1433) furosemide (Lasix) injection 40 mg (40 mg IntraVENous Given 10/29/24 1434) metoprolol tartrate (Lopressor) injection 5 mg (5 mg IntraVENous Given 10/29/24 1554) metoprolol tartrate (Lopressor) injection 5 mg (5 mg IntraVENous Given 10/29/24 1656) metoprolol tartrate (Lopressor) injection 5 mg (5 mg IntraVENous Given 10/29/24 1754) prochlorperazine (Compazine) injection 5 mg (5 mg IntraVENous Given 10/29/24 1747) ED Course as of 10/29/241910Oct 29, 2024 0940 CBC (10/19/24 0256)(!) Prior medical records were reviewed: looks good [NM] 0940 Magnesium (10/18/24 1634) Prior medical records were reviewed: normal [NM] 0941 TSH (10/17/24 1440) Prior medical records were reviewed: normal [NM] ED Course User Index [NM] Marcos Araujo MD Diagnoses as of 10/29/241910 Acute decompensated heart failure (HCC) Atrial fibrillation with rapid ventricular response (HCC) * No order type specified * Our workup consisted of ordering/reviewing: Orders Placed This Encounter Procedures XR chest 2 views Comprehensive metabolic panel Lipase Urinalysis complete with reflex to Culture C-reactive protein D-dimer, quantitative NT PRO BNP Complete Urinalysis Serial Troponin, High Sensitivity Troponin, High Sensitivity, Serial, Second Test Serial Troponin, High Sensitivity Basic metabolic panel Magnesium [facility] Pulse Oximetry Vital Signs Strict intake and output Telemetry monitoring for Arrhythmia Management ECG 12 lead ECG 12 lead Insert peripheral IV Admit to inpatient MDM: 84 y.o. presented with mild shortness of breath. The differential diagnosis considered: Failure, blood clot, pneumothorax, kidney failure, infection,. Age-adjusted D-dimer is normal unlikely blood clot. Patient's care was impacted by comorbidity of Heart disease increasing her risk for heart failure hence workup was initiated with x-ray and proBNP testing. Radiology: X-ray was independently interpreted by myself: Chest: Interstitial prominence left base, no pneumothorax no pleural effusion on the right side, normal mediastinum, breast prosthesis when compared to prior x-ray from last month improved. Diagnostic tests considered but not performed: ct chest with contrast. Age adjusted d dimer is normal. Hospitalization for acute decompensated heart failure, atrial fibrillation with rapid ventricular response. Mild shortness of breath intermittently. On room air. SpO2 more than 90%. Blood pressure is stable. Afebrile. proBNP approximately 11,000. Chest x-ray with some vascular congestion. Troponin 19 ng/L. DELTA Troponin normal 1837 she is doing better hr improved rr improved. REVAL: CRITICAL CARE TIME PROCEDURES: Procedures FINAL IMPRESSION 1. Acute decompensated heart failure (HCC) 2. Atrial fibrillation with rapid ventricular response (HCC) DISPOSITION/PLAN DISPOSITION Admit 10/29/2024 07:11:08 PM Case was discussed with TORIBIO Aguirre and patient was accepted for admission to [facility] PATIENT REFERRED TO: Kathi Juarez MD [address] [facility] [address] Call in 1 day Roney Jerry MD [address] [facility] [phone] Call in 1 day [facility] Cardiology - [address] [facility] [phone] Call in 1 day I prescribed: New Prescriptions No medications on file (Comment: this report has been produced using speech recognition software and may contain errors related to that system including errors in grammar, punctuation, and spelling, as well as words and phrases that may be inappropriate) Marocs Araujo MD (electronically signed) Marcos Araujo MD 10/29/241910 [facility] 10-24-2024 Emergency department Note 13/03 Medical Transport here to transport pt back to [facility]. Pt has been very anxious to go back to the facility, no repeat VS obtained. [facility] 10-24-2024 Emergency department Note 13/03 Medical Transport here to transport pt back to [facility]. Pt has been very anxious to go back to the facility, no repeat VS obtained. Pt yelling in room, RN and medic to room. Pt stating she is getting pissed about being here. Pt states she wants to go home to the SNF and go back to her room. She states she is only here because she forgot something. Reassurance given. Pt to ED7 via [facility] with report of altered mental status at [facility]. Per EMS they were called for the pt not herself. On their arrival the pt was in the beauty salon at the SNF and EMS noted strong odor of fumes from hair services. EMS report pt being A&Ox4 with hx dementia. On arrival to ED the pt has no c/o except wanting a drink of water. Ice chips given. Pt is A&Ox3, respirations even and unlabored, skin warm and dry, no distress noted. EMERGENCY DEPARTMENT ENCOUNTER Pt Name: Sommer Friedman Birthdate 1940 Date of evaluation: 10/24/2024 CHIEF COMPLAINT Chief Complaint Patient presents with Other AMS per SNF but pt is A&Ox4 for EMS HISTORY OF PRESENT ILLNESS HPI Sommer Friedman is a 84 y.o. female who presents to the emergency department with possible change in mental status. EMS reports that for them she has been normal mental status. Facility reported she was confused. Patient does have a history of dementia. No pain. Denies any blurry vision denies any double vision denies any numbness no weakness. REVIEW OF SYSTEMS Review of Systems Patient Active Problem List Diagnosis Low back pain without sciatica, unspecified back pain laterality, unspecified chronicity Lumbago New onset atrial fibrillation (HCC) Cognitive communication deficit Dementia (HCC) CURRENT MEDICATIONS Discharge Medication List as of 10/24/2024 2:50 PM CONTINUE these medications which have NOT CHANGED Details apixaban (Eliquis) 2.5 MG tablet Take 2.5 mg by mouth 2 times daily., Historical Med biotin 5 MG capsule Take 5 mg by mouth daily., Historical Med busPIRone (Buspar) 5 MG tablet Take 5 mg by mouth 2 times daily., Historical Med calcium carbonate (Tums) 500 MG chewable tablet Chew 500 mg as needed for indigestion or heartburn., Historical Med carboxymethylcellulose (Refresh Plus) 0.5 % ophthalmic solution Administer 2 drops into both eyes in the morning and 2 drops in the evening., Historical Med donepezil (Aricept) 10 MG tablet Take 10 mg by mouth Nightly., Historical Med escitalopram (Lexapro) 10 MG tablet Take 15 mg by mouth daily., Historical Med Fluticasone-Salmeterol (Advair Diskus) 500-50 MCG/ACT aerosol powder Inhale 1 puff in the morning and 1 puff in the evening., Historical Med furosemide (Lasix) 20 MG tablet Take 20 mg by mouth daily., Historical Med levothyroxine (Tirosint) 88 MCG capsule Take 88 mcg by mouth every morning (before breakfast)., Historical Med losartan (Cozaar) 50 MG tablet Take 50 mg by mouth 2 times daily., Historical Med Melatonin 3 MG tablet dispersible Take 9 mg by mouth Nightly., Historical Med metoprolol tartrate (Lopressor) 25 MG tablet Take 1 tablet (25 mg) by mouth 2 times daily., Starting 10/19/2024, Until 10/19/2025, No Print polyethylene glycol, PEG, 3350 (Miralax) 17 g packet Take 17 g by mouth daily., Historical Med senna-docusate (Juanis-Colace) 8.6-50 MG tablet Take 1 tablet by mouth daily., Historical Med spironolactone (Aldactone) 25 MG tablet Take 1 tablet (25 mg) by mouth daily., Starting 10/20/2024, Until 10/20/2025, No Print tiZANidine (Zanaflex) 4 MG tablet Take 4 mg by mouth in the morning and 4 mg at noon and 4 mg in the evening., Historical Med traZODone (Desyrel) 50 MG tablet Take 25 mg by mouth Nightly., Historical Med ALLERGIES Gabapentin and Propoxyphene SOCIAL HISTORY Social History Tobacco Use Smoking status: Unknown Vaping Use Vaping status: Unknown Substance Use Topics Alcohol use: Not Currently Drug use: Not Currently PHYSICAL EXAM Vitals: 10/24/24 1419 10/24/24 1427 BP: (!) 150/98 Pulse: 86 Resp: 16 Temp: 36.6 C (97.9 F) TempSrc: Temporal SpO2: 98% Weight: 61.2 kg (135 lb) Height: 1.6 m (5' 3) Physical Exam Vitals and nursing note reviewed. Constitutional: Appearance: She is normal weight. She is not toxic-appearing or diaphoretic. Eyes: General: No scleral icterus. Extraocular Movements: Extraocular movements intact. Pupils: Pupils are equal, round, and reactive to light. Funduscopic exam: Right eye: No papilledema. Left eye: No papilledema. Neck: Vascular: No carotid bruit. Cardiovascular: Rate and Rhythm: Normal rate and regular rhythm. Pulmonary: Effort: Pulmonary effort is normal. No respiratory distress. Breath sounds: No stridor. Abdominal: General: Bowel sounds are normal. Palpations: Abdomen is soft. Hernia: No hernia is present. Skin: General: Skin is warm and dry. Capillary Refill: Capillary refill takes less than 2 seconds. Coloration: Skin is not cyanotic or jaundiced. Neurological: Mental Status: She is alert and oriented to person, place, and time. Cranial Nerves: Cranial nerves 2-12 are intact. Sensory: Sensation is intact. Motor: Motor function is intact. Coordination: Coordination is intact. Gait: Gait is intact. Comments: Nih ss=0 Psychiatric: Attention and Perception: Attention and perception normal. Mood and Affect: Mood normal. Behavior: Behavior normal. Comments: Arms crossed and states don't mess with my brain When brokerage purchase and sale clerk told her she at least had a chance to go to [facility] facility she stuck her tongue out to medic. SCREENINGS Medical decision making DIAGNOSTIC RESULTS Procedures/EKG: Physician EKG interpretation can be found in [facility] if done Radiologist results reviewed: No orders to display LABS: Labs Reviewed POCT GLUCOSE METER UNSOLICITED RESULTS - Abnormal Result Value Glucose 116 (*) Narrative: Performed by: [facility], [address] [place] [address] CLIA ID: [id number] POCT GLUCOSE METER RADIOLOGY : Medications ordered: Medications - No data to display ED Course as of 10/24/24 1618 Crissy Oct 24, 2024 1423 Magnesium (10/18/24 1634) Prior medical records were reviewed: normal [NM] 1424 CBC (10/19/24 0256)(!) Prior medical records were reviewed: looks good [NM] 1425 TSH (10/17/24 1440) Prior medical records were reviewed: normal [NM] ED Course User Index [NM] Marcos Araujo MD Diagnoses as of 10/24/24 1618 Dementia, unspecified dementia severity, unspecified dementia type, unspecified whether behavioral, psychotic, or mood disturbance or anxiety (HCC) * No order type specified * Our workup consisted of ordering/reviewing: Orders Placed This Encounter Procedures POCT glucose meter MDM: 84 y.o. presented with reported confusion. The differential diagnosis considered: hypoglycemia. Patient's care was impacted by comorbidity of dementia, possibly impacting what happened at facility . Diagnostic tests considered but not performed: ct head. Nihss =0 Consideration for escalation of care with: diagnostics ammonia level, however, she has no liver failure hx hence not ordered . REVAL: CRITICAL CARE TIME PROCEDURES: Procedures FINAL IMPRESSION 1. Dementia, unspecified dementia severity, unspecified dementia type, unspecified whether behavioral, psychotic, or mood disturbance or anxiety (HCC) DISPOSITION/PLAN DISPOSITION Discharge 10/24/2024 02:49:54 PM PATIENT REFERRED TO: Kathi Juarez MD [address] [place] [address] [address] [place] [address] Call in 1 day I prescribed: Discharge Medication List as of 10/24/2024 2:50 PM (Comment: this report has been produced using speech recognition software and may contain errors related to that system including errors in grammar, punctuation, and spelling, as well as words and phrases that may be inappropriate) Marcos Araujo MD (electronically signed) Marcos Araujo MD 10/24/24 1618 documented in this encounter [facility] 10-24-2024 Emergency department Note Pt yelling in room, RN and medic to room. Pt stating she is getting pissed about being here. Pt states she wants to go home to the SNF and go back to her room. She states she is only here because she forgot something. Reassurance given. [facility] 10-24-2024 Emergency department Triage note Pt to ED7 via [facility] with report of altered mental status at [facility]. Per EMS they were called for the pt not herself. On their arrival the pt was in the beauty salon at the SNF and EMS noted strong odor of fumes from hair services. EMS report pt being A&Ox4 with hx dementia. On arrival to ED the pt has no c/o except wanting a drink of water. Ice chips given. Pt is A&Ox3, respirations even and unlabored, skin warm and dry, no distress noted. [facility] 10-24-2024 Physician Emergency department Note EMERGENCY DEPARTMENT ENCOUNTER Pt Name: Sommer Friedman Birthdate 1940 Date of evaluation: 10/24/2024 CHIEF COMPLAINT Chief Complaint Patient presents with Other AMS per SNF but pt is A&Ox4 for EMS HISTORY OF PRESENT ILLNESS HPI Sommer Friedman is a 84 y.o. female who presents to the emergency department with possible change in mental status. EMS reports that for them she has been normal mental status. Facility reported she was confused. Patient does have a history of dementia. No pain. Denies any blurry vision denies any double vision denies any numbness no weakness. REVIEW OF SYSTEMS Review of Systems Patient Active Problem List Diagnosis Low back pain without sciatica, unspecified back pain laterality, unspecified chronicity Lumbago New onset atrial fibrillation (HCC) Cognitive communication deficit Dementia (HCC) CURRENT MEDICATIONS Discharge Medication List as of 10/24/2024 2:50 PM CONTINUE these medications which have NOT CHANGED Details apixaban (Eliquis) 2.5 MG tablet Take 2.5 mg by mouth 2 times daily., Historical Med biotin 5 MG capsule Take 5 mg by mouth daily., Historical Med busPIRone (Buspar) 5 MG tablet Take 5 mg by mouth 2 times daily., Historical Med calcium carbonate (Tums) 500 MG chewable tablet Chew 500 mg as needed for indigestion or heartburn., Historical Med carboxymethylcellulose (Refresh Plus) 0.5 % ophthalmic solution Administer 2 drops into both eyes in the morning and 2 drops in the evening., Historical Med donepezil (Aricept) 10 MG tablet Take 10 mg by mouth Nightly., Historical Med escitalopram (Lexapro) 10 MG tablet Take 15 mg by mouth daily., Historical Med Fluticasone-Salmeterol (Advair Diskus) 500-50 MCG/ACT aerosol powder Inhale 1 puff in the morning and 1 puff in the evening., Historical Med furosemide (Lasix) 20 MG tablet Take 20 mg by mouth daily., Historical Med levothyroxine (Tirosint) 88 MCG capsule Take 88 mcg by mouth every morning (before breakfast)., Historical Med losartan (Cozaar) 50 MG tablet Take 50 mg by mouth 2 times daily., Historical Med Melatonin 3 MG tablet dispersible Take 9 mg by mouth Nightly., Historical Med metoprolol tartrate (Lopressor) 25 MG tablet Take 1 tablet (25 mg) by mouth 2 times daily., Starting 10/19/2024, Until 10/19/2025, No Print polyethylene glycol, PEG, 3350 (Miralax) 17 g packet Take 17 g by mouth daily., Historical Med senna-docusate (Juanis-Colace) 8.6-50 MG tablet Take 1 tablet by mouth daily., Historical Med spironolactone (Aldactone) 25 MG tablet Take 1 tablet (25 mg) by mouth daily., Starting 10/20/2024, Until 10/20/2025, No Print tiZANidine (Zanaflex) 4 MG tablet Take 4 mg by mouth in the morning and 4 mg at noon and 4 mg in the evening., Historical Med traZODone (Desyrel) 50 MG tablet Take 25 mg by mouth Nightly., Historical Med ALLERGIES Gabapentin and Propoxyphene SOCIAL HISTORY Social History Tobacco Use Smoking status: Unknown Vaping Use Vaping status: Unknown Substance Use Topics Alcohol use: Not Currently Drug use: Not Currently PHYSICAL EXAM Vitals: 10/24/24 1419 10/24/24 1427 BP: (!) 150/98 Pulse: 86 Resp: 16 Temp: 36.6 C (97.9 F) TempSrc: Temporal SpO2: 98% Weight: 61.2 kg (135 lb) Height: 1.6 m (5' 3) Physical Exam Vitals and nursing note reviewed. Constitutional: Appearance: She is normal weight. She is not toxic-appearing or diaphoretic. Eyes: General: No scleral icterus. Extraocular Movements: Extraocular movements intact. Pupils: Pupils are equal, round, and reactive to light. Funduscopic exam: Right eye: No papilledema. Left eye: No papilledema. Neck: Vascular: No carotid bruit. Cardiovascular: Rate and Rhythm: Normal rate and regular rhythm. Pulmonary: Effort: Pulmonary effort is normal. No respiratory distress. Breath sounds: No stridor. Abdominal: General: Bowel sounds are normal. Palpations: Abdomen is soft. Hernia: No hernia is present. Skin: General: Skin is warm and dry. Capillary Refill: Capillary refill takes less than 2 seconds. Coloration: Skin is not cyanotic or jaundiced. Neurological: Mental Status: She is alert and oriented to person, place, and time. Cranial Nerves: Cranial nerves 2-12 are intact. Sensory: Sensation is intact. Motor: Motor function is intact. Coordination: Coordination is intact. Gait: Gait is intact. Comments: Nih ss=0 Psychiatric: Attention and Perception: Attention and perception normal. Mood and Affect: Mood normal. Behavior: Behavior normal. Comments: Arms crossed and states don't mess with my brain When brokerage purchase and sale clerk told her she at least had a chance to go to [facility] facility she stuck her tongue out to medic. SCREENINGS Medical decision making DIAGNOSTIC RESULTS Procedures/EKG: Physician EKG interpretation can be found in [facility] if done Radiologist results reviewed: No orders to display LABS: Labs Reviewed POCT GLUCOSE METER UNSOLICITED RESULTS - Abnormal Result Value Glucose 116 (*) Narrative: [facility]: [facility], [address] [place] [address] CLIA ID: [id number] POCT GLUCOSE METER RADIOLOGY : Medications ordered: Medications - No data to display ED Course as of 10/24/24 1618 Crissy Oct 24, 2024 1423 Magnesium (10/18/24 1634) Prior medical records were reviewed: normal [NM] 1424 CBC (10/19/24 0256)(!) Prior medical records were reviewed: looks good [NM] 1425 TSH (10/17/24 1440) Prior medical records were reviewed: normal [NM] ED Course User Index [NM] Marcos Araujo MD Diagnoses as of 10/24/24 1618 Dementia, unspecified dementia severity, unspecified dementia type, unspecified whether behavioral, psychotic, or mood disturbance or anxiety (HCC) * No order type specified * Our workup consisted of ordering/reviewing: Orders Placed This Encounter Procedures POCT glucose meter MDM: 84 y.o. presented with reported confusion. The differential diagnosis considered: hypoglycemia. Patient's care was impacted by comorbidity of dementia, possibly impacting what happened at facility . Diagnostic tests considered but not performed: ct head. Nihss =0 Consideration for escalation of care with: diagnostics ammonia level, however, she has no liver failure hx hence not ordered . REVAL: CRITICAL CARE TIME PROCEDURES: Procedures FINAL IMPRESSION 1. Dementia, unspecified dementia severity, unspecified dementia type, unspecified whether behavioral, psychotic, or mood disturbance or anxiety (HCC) DISPOSITION/PLAN DISPOSITION Discharge 10/24/2024 02:49:54 PM PATIENT REFERRED TO: Kathi Juarez MD [address] [place] [address] [address] [place] [address] Call in 1 day I prescribed: Discharge Medication List as of 10/24/2024 2:50 PM (Comment: this report has been produced using speech recognition software and may contain errors related to that system including errors in grammar, punctuation, and spelling, as well as words and phrases that may be inappropriate) Marcos Araujo MD (electronically signed) Marcos Araujo MD 10/24/24 1618 [facility] 10-19-2024 Nurse Note Report called Nilam at [facility]. [facility] 10-19-2024 Nurse Note Report called Nilam at [facility]. Message left at [facility] for nurse to call back to get report on patient. Will be awaiting return phone call. 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 Heart monitor removed per nursing protocol. Cleaned, and returned to tele 21. Return call from son. He will be in shortly. Patient updated. Attempt to call patient's son Parris, on behalf of patient. No answer, no message left at this time. documented in this encounter [facility] 10-19-2024 Nurse Note Message left at [facility] for nurse to call back to get report on patient. Will be awaiting return phone call. 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 [facility] 10-19-2024 Nurse Note Heart monitor removed per nursing protocol. Cleaned, and returned to tele 21. [facility] 10-19-2024 Note Formatting of this n ote might be different from the original. Care Management Progress Note Discharge Plan: [facility] Discharge order noted. Case Management portion of Continuity of Care (WONG) updated. Scheduled discharge transportation in [employer], picker machine operator time confirmed for 1630. Updated bedside RN and requested completion of their portion of the WONG. Called patient's son Parris and updated him on discharge plan. Facility notified of transportation time and discharge documents including After Visit Summary, MAR, LABS, and Vitals were uploaded into [employer] for review. Length of Stay (Days): 0 GMLOS: No GMLOS Documented [facility] 10-19-2024 Note Formatting of this n ote might be different from the original. Care Management Progress Note Discharge Plan: [facility] Discharge order noted. Case Management portion of Continuity of Care (WONG) updated. Scheduled discharge transportation in [employer], picker machine operator time confirmed for 1630. Updated bedside RN and requested completion of their portion of the WONG. Called patient's son Parris and updated him on discharge plan. Facility notified of transportation time and discharge documents including After Visit Summary, MAR, LABS, and Vitals were uploaded into careport for review. Length of Stay (Days): 0 GMLOS: No GMLOS Documented [facility] 10-19-2024 Miscellaneous Notes Care Management Progress Note Discharge Plan: [facility] Discharge order noted. Case Management portion of Continuity of Care (WONG) updated. Scheduled discharge transportation in [employer], picker machine operator time confirmed for 1630. Updated bedside RN and requested completion of their portion of the WONG. Called patient's son Parris and updated him on discharge plan. Facility notified of transportation time and discharge documents including After Visit Summary, MAR, LABS, and Vitals were uploaded into careport for review. Length of Stay (Days): 0 GMLOS: No GMLOS Documented Problem: Knowledge Deficit Goal: Patient/family/caregiver demonstrates understanding of disease process, treatment plan, medications, and discharge instructions Outcome: Progressing Rounds this am DCP: From [facility] Sent return referral: she is LTC and a Bedhold, She can return when stable. Per notes: Atrial fibrillation, recurrent, appears to be symptomatic. Heart failure, based on dyspnea, jugular venous distention, and some evidence of congestion by chest x-ray With the high-sensitivity troponins being flat, this is probably not an acute coronary syndrome, probably just small myocardial injury related to the atrial fibrillation and heart failure Referral placed to return back to [facility] via [facility] per TCC request. Await review and response regarding ability to accept. TCC notified. documented in this encounter [facility] 10-19-2024 Note [facility] 10-19-2024 Hospital course Narrative Discharge Summary Sommer Friedman : 1940 ADMIT DATE: 10/17/2024 DISCHARGE DATE: 10/19/2024 PRIMARY CARE PHYSICIAN: Kathi Juarez VISIT STATUS: Admission CODE STATUS: Full Code DISCHARGE DIAGNOSES: Principal Problem: New onset atrial fibrillation (HCC) HOSPITAL COURSE: Sommer is a 84 y.o. female who presents to the emergency department with chest pain occurring this morning. She is from [facility]. Pain was midchest and she had hard describing it to me. But states no pain currently. She has known hx of A.fib and was in RVR with HR in the 120s in ER. She is very pleasant, appears comfortable in NAD, but could not tell me year (said 2015) and place (states she has no idea where she is). Currently not feeling particularly ill not having any pain anywhere. Denies any shortness of breath, cough, fever, nausea, vomiting, abdominal pain, extremity swelling. The following is a summary of her diagnosis management during her stay here at [facility]: Acute, acute on chronic, unstable/uncontrolled chronic problems/diagnoses: # Chronic A.fib with RVR - resumed Eliquis and started on metoprolol 25mg bid per cardiology. Rate is controlled now. Cardiology has cleared for discharge. # Mild acute on chronic HFpEF exacerbation due to above per cardiology - okay to continue lasix 20mg daily but cardiology added aldactone 25mg daily as well. Cardiology has cleared for discharge and patient is euvolemic # Chest pain with elevated troponin - suspect demand related to A.fib RVR per cardiology. # Acute proteus mirabilis UTI - on rocephin. Today is last dose (treated for 3 days). # 7 beat run of Vtach on 10/18 - cardiology aware and recommends to keep K above 4 and mag above 2. # Hypokalemia and hypomagnesemia on 10/18 was lab error (dilutional) - repeat was normal. # Code status: Called and spoke with son Parris who is POA ([phone]) on admission to verify. He states patient is to be Full code. Stable chronic problems affecting care, new non-acute diagnoses: # HLD - diet controlled? Not on antilipid meds # Chronic HTN - on Cozaar and was started here on metoprolol as per cardiology. BP controlled # Chronic Hypothyroidism - resumed synthroid. Check TSH # COPD - stable, resumed inhaler # Hx of depression and Anxiety - resumed buspar, trazodone and lexapro # Hx of L1 burst fracture # Alzheimers dementia # Hearing loss # Hx of lumbar Spinal stenosis and chronic back pain # Hx of Tinnitus # Chronic Diastolic heart failure - resumed home lasix and was started on Aldactone 25mg daily per cardiology. # Pulmonary HTN Physical exam: Cardiovascular: S1/S2 heard, irregular Respiratory: Clear to auscultation bilaterally Abdomen: Soft, non-tender, non-distended bowel sounds positive Musculoskeletal: No obvious deformities seen Skin: No visible rashes or lesions. SIGNIFICANT DIAGNOSTIC STUDIES: As above CONSULTANTS: Cardiology RECOMMENDED NEXT STEPS: DISCHARGE MEDICATIONS: Medication List START taking these medications metoprolol tartrate 25 MG tablet Commonly known as: Lopressor Take 1 tablet (25 mg) by mouth 2 times daily. spironolactone 25 MG tablet Commonly known as: Aldactone Take 1 tablet (25 mg) by mouth daily. Start taking on: October 20, 2024 CONTINUE taking these medications Advair Diskus 500-50 MCG/ACT aerosol powder Generic drug: Fluticasone-Salmeterol biotin 5 MG capsule busPIRone 5 MG tablet Commonly known as: Buspar calcium carbonate 500 MG chewable tablet Commonly known as: Tums carboxymethylcellulose 0.5 % ophthalmic solution Commonly known as: Refresh Plus donepezil 10 MG tablet Commonly known as: Aricept Eliquis 2.5 MG tablet Generic drug: apixaban escitalopram 10 MG tablet Commonly known as: Lexapro furosemide 20 MG tablet Commonly known as: Lasix levothyroxine 88 MCG capsule Commonly known as: Tirosint losartan 50 MG tablet Commonly known as: Cozaar Melatonin 3 MG tablet dispersible polyethylene glycol (PEG) 3350 17 g packet Commonly known as: Miralax senna-docusate 8.6-50 MG tablet Commonly known as: Juanis-Colace tiZANidine 4 MG tablet Commonly known as: Zanaflex traZODone 50 MG tablet Commonly known as: Desyrel STOP taking these medications potassium chloride CR 20 MEQ ER tablet Commonly known as: Klor-Con M20 Where to Get Your Medications Information about where to get these medications is not yet available Ask your nurse or doctor about these medications metoprolol tartrate 25 MG tablet spironolactone 25 MG tablet DIET: Adult diet Regular ACTIVITY: Up with assist COMPLEXITY OF FOLLOW UP: [] Moderate Complexity: follow up within 7-14 calendar days (79450) [] Severe Complexity: follow up within 7 calendar days (89419) FOLLOW UP TESTING, PENDING RESULTS OR REFERRALS AT TRANSITIONAL CARE VISIT: [] Yes [] No PENDING STUDIES: DISPOSITION: Skilled Facility FACILITY/HOME CARE AGENCY NAME: [facility] Follow up with No follow-up provider specified. Follow up with cardiology and pcp INSTRUCTIONS TO MA/SW: Please call patient on day after discharge (must document patient contacted within 2 business days of discharge). FOLLOW UP QUESTIONS FOR MA/SW: 1. Did you get medications filled and taking them as instructed from discharge? 2. Are you following your discharge instructions from your hospital stay? 3. Please confirm patient is scheduled for a follow up appointment within the above time frame. DISCHARGE TIME: > 30 minutes SIGNED: Phill Forte MD 10/19/2024, 2:06 PM documented in this encounter [facility] 10-19-2024 Hospital Discharge instructions Marta Peralta RN - 10/19/2024 2:06 PM EST Images from the original note were not included. Continuity of Care Form Patient Name: Sommer Friedman : 1940 Admit date: 10/17/2024 Discharge date: 10/19/2024 Code Status Order: Full Code Advance Directives: N Admitting Physician: Phill Forte MD PCP: Kathi Juarez MD Discharging Nurse: Malathi Discharging Hospital Unit/Room#: B2-254/B2-254 B Discharging Unit Phone Number: [phone] Emergency Contact: Extended Emergency Contact Information Primary Emergency Contact: Parris Friedman Mobile Relation: Son Secondary Emergency Contact: Jaylan Friedman Mobile Relation: Son Preferred language: Salvadorean Roll Cutter needed? No Past Surgical History: History reviewed. No pertinent surgical history. Immunization History: There is no immunization history on file for this patient. Active Problems: Medical Problems Problem List * (Principal) New onset atrial fibrillation (HCC) Low back pain without sciatica, unspecified back pain laterality, unspecified chronicity Lumbago Isolation/Infection: No active isolations No active infections Nurse Assessment: Last Vital Signs: BP 111/70 Pulse 85 Temp 37.1 C (98.8 F) (Temporal) Resp 20 Ht 5' 3 (1.6 m) Wt 135 lb (61.2 kg) SpO2 92% BMI 23.91 kg/m Last documented pain score (0-10 scale): Last Weight: Wt Readings from Last 1 Encounters: 10/18/24 135 lb (61.2 kg) Mental Status: WONG Patient Mental Status: disoriented, alert, and able to concentrate and follow conversation IV Access: WONG IV Access: None Nursing Mobility/ADLs: Walking Minimal assistance Transfer Minimal assistance Bathing Minimal assistance Dressing Minimal assistance Toileting Minimal assistance Feeding Minimal assistance Dry Sand Molder Independent Med Delivery no Wound Care Documentation and Therapy: Elimination: Continence: Bowel: no Bladder: yes Urinary Catheter: None Colostomy/Ileostomy/Ileal Conduit: None Date of Last BM: 10/18/2024 Intake/Output Summary (Last 24 hours) at 10/19/2024 1406 Last data filed at 10/19/2024 1245 Gross per 24 hour Intake 480 ml Output -- Net 480 ml No intake/output data recorded. Safety Concerns: at risk for falls Impairments/Disabilities: none Nutrition Therapy: Current Nutrition Therapy: Oral diet: general Routes of Feeding: oral Liquids: thin liquids Daily Fluid Restriction: no Last Modified Barium Swallow with Video (Video Swallowing Test): not done Treatments at the Time of Hospital Discharge: Respiratory Treatments: none Oxygen Therapy: is not on home oxygen therapy. Ventilator: No ventilator support Rehab Therapies: physical therapy and occupational therapy Weight Bearing Status/Restrictions: no restriction Other Medical Equipment (for information only, NOT a DME order): bedside commode, walker, and shower chair Other Treatments: bed alarm for safety Patient's personal belongings (please select all that are sent with patient): glasses, jewelry, and clothing RN SIGNATURE: MANAGEMENT/SOCIAL WORK SECTION Inpatient Status Date: 10/17/24 Discharging to Facility/ Agency Name: [facility] Address: [address] [place] [address] Nurse to Nurse report number is [phone] - 100/353 [place] Fax: Machine Grinder/Reed Maker signature: ICIAN SECTION Name: Sommer Friedman Prognosis: good Condition at Discharge: stable Rehab Potential (if transferring to Rehab): good Recommended Labs or Other Treatments After Discharge: The individual is being admitted to a nursing facility directly from an [facility] or a unit of a [facility] that is not operated by or licensed by [facility] under section 5119.14 or 5160-3-15.1 5 The individual requires the level of services provided by a nursing facility for the condition for which he or she was treated in the hospital and, Physician Certification: I certify the above information and transfer of Sommer Friedman is necessary for the continuing treatment of the diagnosis listed and that she requires nursing home facility for greater than 30 days. Update Admission H&P: No change in H&P PHYSICIAN SIGNATURE: documented in this encounter [email or web address] 10-19-2024 Nurse Note Return call from son. He will be in shortly. Patient updated. [email or web address] 10-19-2024 Nurse Note Attempt to call patient's son Parris, on behalf of patient. No answer, no message left at this time. [email or web address] 10-19-2024 History of Present illness Narrative [facility] [place] [facility] [place]Electrophysiology Progress Note HPI / Interval History: Sommer Friedman is a 84 y.o. year old female patient with A fib on OAC, hypertension, dementia, and COPD. She resides in a SNF, and her goals are for conservative mgt. It was noted per reviewing notes from [facility]-josephol and diltiazem both were discontinued due to bradycardia, presumably when in SR. She presented to [facility] due to symptoms of worsening fatigue. She was found to be in atrial fibrillation, heart rate elevated 111 bpm. Pt has denied specific symptoms of SOB or palpitations. She denies chest pain. She continues to describe significant symptoms of fatigue. Heart rate has been well controlled, started on metoprolol tartrate 25 mg twice daily. She has also been started on low dose Eliquis 2.5 mg twice daily for OAC, based on elderly age and low body weight. TTE 10/18/2024-EF-62%, normal wall motion. Pt has been well compensated. Today she feels well. Her A Fib is controlled with rates in the 70s. She still states she is feeling fatigued. She is presently being treated for UTI, IV atb per primary service. She denies SOB, palpitations, or chest pain. She appears to have poor insight into her care. She resides at a SNF. Assessment/Plan HF NYHA Class [] I [] II [] III [] IV []Unable to assess [] N/A Atrial fibrillation. Continues on Eliquis 2.5 mg BID, per age and wt Continues on Lopressor 25 mg BID, rate is well controlled No urgent indication for DCCV Echo 10/18/2024- EF- 62% with normal wall motion Mild Heart failure symptoms on admission-improved. Appears compensated Preserved EF per Echo 10/18/2024 as noted above Continues on PO Lasix 20 mg daily and Spironolactone 25 mg daily Trend BMP Continues on Losartan 50 mg BID Dementia. Per primary service UTI. Per primary- IV antibiotics continue Disp- appears pt is established with cardiology with the [facility] Medications: apixaban, 2.5 mg, Oral, BID busPIRone, 5 mg, Oral, BID cefTRIAXone, 1,000 mg, IntraVENous, q24h escitalopram, 15 mg, Oral, Daily furosemide, 20 mg, Oral, Daily levothyroxine, 25 mcg, Oral, qAM AC losartan, 50 mg, Oral, BID melatonin, 10 mg, Oral, Nightly metoprolol tartrate, 25 mg, Oral, BID mometasone-formoterol, 2 puff, Inhalation, BID senna-docusate sodium, 1 tablet, Oral, Daily spironolactone, 25 mg, Oral, Daily tiZANidine, 4 mg, Oral, TID traZODone, 25 mg, Oral, Nightly Infusion Medications: Physical Examination: Vitals: 10/18/24 2235 10/18/24 2326 10/19/24 0303 10/19/24 0745 BP: 152/92 151/93 143/89 BP Location: Patient Position: Pulse: 95 83 92 90 Resp: 18 18 18 Temp: 36.6 C (97.8 F) 36.2 C (97.2 F) 37 C (98.6 F) TempSrc: Temporal Temporal Temporal SpO2: (!) 89% 92% 90% 93% Weight: Height: No intake or output data in the 24 hours ending 10/19/24 0946 Patient Vitals for the past 168 hrs: Weight Weight Method 10/18/24 1101 135 lb (61.2 kg) -- 10/18/24 0215 135 lb 3.2 oz (61.3 kg) Bed scale 10/17/24 1058 123 lb (55.8 kg) Stated Physical Exam Constitutional: NAD Psychiatric: Alert, pleasant. Medical insight poor Neck: No JVD Respiratory: Lungs are diminished rales and rhonchi Heart: irreg ; Nl S1 and S2, no murmur, no rub, gallop Abdomen: NABS; soft, non-tender, non-distended Extremities: no LE edema Skin: Warm to touch and well perfused Laboratory Tests: TROPONIN I, CONVENTIONAL SENSITIVITY CK Date Value Ref Range Status 04/10/2024 29 (L) 30 - 170 U/L Final TROPONIN I Date Value Ref Range Status 04/10/2024 <0.012 <0.034 ng/mL Final TROPONIN I, HIGH SENSITIVITY Troponin HS Serial Baseline Date Value Ref Range Status 10/17/2024 76 (H) <=14 ng/L Final Comment: In individuals presenting with symptoms > 2h, a baseline troponin <= 5 ng/L suggests acute cardiac injury is unlikely and further serial testing is generally not indicated. 10/17/2024 82 (H) <=14 ng/L Final Comment: In individuals presenting with symptoms > 2h, a baseline troponin <= 5 ng/L suggests acute cardiac injury is unlikely and further serial testing is generally not indicated. 2h Troponin HS (Serial 2nd Troponin) Date Value Ref Range Status 10/17/2024 81 (H) <=14 ng/L Final Comment: Rising or falling troponin delta between 2 - 15 ng/L as compared to baseline value requires a 3rd serial troponin 10/17/2024 83 (H) <=14 ng/L Final Comment: Rising or falling troponin delta below 2 ng/L as compared to baseline value suggests that acute cardiac injury is unlikely. No results found for: TROPDELTBASE No results found for: TROPHS3 No results found for: TROPDELTSEC Recent Labs 10/17/24 1113 10/18/24 1506 10/18/24 1557 10/19/24 0223 NA 137 141 136 136 K 4.2 2.6* 4.0 3.6 CL 109* 120* 105 109* CO2 19* 14* 21* 20* BUN 17 18 26* 22 CREATININE 0.87 0.61 0.99 0.78 Recent Labs 10/17/24 1113 10/18/24 1506 10/19/24 0223 WBC 6.8 5.1 5.7 HGB 12.4 8.9* 12.0 HCT 37.1 27.7* 36.8 MCV 98.1 100.7* 98.7 PLT 303 215 296 No results for input(s): BNP in the last 72 hours. No results for input(s): TRIG, HDL, LDLCALC, CHOL in the last 72 hours. No results found for: LDLCHOLESTER Lab Results Component Value Date TSH 2.48 10/17/2024 EF BP Date Value Ref Range Status 10/18/2024 62 55 - 100 % Final 10/17/24 TRANSTHORACIC ECHOCARDIOGRAM (TTE) COMPLETE (CONTRAST/BUBBLE/3D PRN) 10/18/2024 2:37 PM (Final) Interpretation Summary Left Ventricle: Left ventricle size is normal. Mildly increased wall thickness. Mass index 2D is 129.3 g/m2. Findings consistent with mild concentric hypertrophy. Normal left ventricular systolic function. EF by 2D Simpsons Biplane is 62%. Normal wall motion. Right Ventricle: Right ventricle is moderately dilated. Normal systolic function. Aortic Valve: Trileaflet. Mild (1+) regurgitation with an eccentrically directed jet. No stenosis. Tricuspid Valve: No leaflet thickening. Moderate (2+) regurgitation. Moderately elevated RVSP. RVSP is 47 mmHg. Left Atrium: Left atrium is moderately dilated. LA Vol Index A/L is 47 mL/m2. Right Atrium: Right atrium is moderately dilated. IVC/SVC: IVC diameter is dilated and decreases less than 50% during inspiration; therefore the estimated right atrial pressure is elevated (~15 mmHg). Signed by: Casey Eller on 10/18/2024 2:37 PM Other reports reviewed: Cardiac Tests: ECG: Tracing reviewed. Telemetry findings reviewed: A fib 70s EF BP Date Value Ref Range Status 10/18/2024 62 55 - 100 % Final ZULAY Juarez CNP Date Of Service 10/19/2024 Nutrition rescreen completed. Chart reviewed. Patient to be monitored and followed by the diet research technician. Spiritual Care Note [facility] Palliative Care Patient Name:Sommer Friedman Chief Complaint: Chief Complaint Patient presents with Chest Pain Patient brought in by EMS from [facility] for chest pain that started last night. Per SNF patient was complaining of chest pain and SOB starting last night. They that is was due to patient being anxious. The nurse states that she was still having the complaints today so she called to have the patient brought in. Patient denies complaints now. EMS states Chest pain resolved during transport Patient is A&Ox3 Reason for visit: Initial Visit Services Provided To:patient Background and visit note: Patient sitting up in bed. No family present. Patient is Religious. Patient expressed her feelings of isolation and loneliness. Patient is frustrated and feels that she has been forgotten. Reassurance of God's presence and love. Provided empathetic listening, validation of feelings , companionship and supportive payer. Is there spiritual distress? YES Comment: Patient feels she has been abandoned. Interventions: spiritual support provided, emotional support provided, empathetic listening, validated feelings, and alleviation of fear and anxiety. Care Plan: regain a sense of hope/optimism, self reflection, find peace/acceptance, and connect to higher power. Follow Up: PRN. Debriefed: N/A. Teodoro Corrigan 10/18/24 [facility] [place] [facility] [place]Electrophysiology Progress Note HPI / Interval History: Sommer Friedman is a 84 y.o. year old female patient with A fib on OAC, hypertension, dementia, and COPD. She resides in a SNF, and her goals are for conservative mgt. She tells me, I'm not one of those people that runs to the doctor with every sniffle. Today she feels well. Her A Fib is controlled with rates in the 80s, and she doesn't report feeling symptoms surrounding this. She denies any chest pain, SOB, dizziness, and edema. She states that she does get a rattle wet rattle in her chest, for years. 2L 02 > 1L > room air. Assessment/Plan HF NYHA Class [] I [] II [] III [] IV []Unable to assess [] N/A Atrial fibrillation. Continues on Eliquis 2.5 mg BID, per age and wt Continues on Lopressor 25 mg BID, titrate as needed No urgent indication for DCCV Echo pending Mild Heart failure symptoms. Rhonchi, rales, pulmonary congestion on CXR, and improvement in symptoms with diuresis. Echo pending No HF sxs today Continues on PO Lasix 20 mg daily and Spironolactone 25 mg daily Trend BMP Continues on Losartan 50 mg BID Dementia. Per primary service Probable UTI. Per primary service Medications: apixaban, 2.5 mg, Oral, BID busPIRone, 5 mg, Oral, BID cefTRIAXone, 1,000 mg, IntraVENous, q24h escitalopram, 15 mg, Oral, Daily furosemide, 20 mg, Oral, Daily levothyroxine, 25 mcg, Oral, qAM AC losartan, 50 mg, Oral, BID melatonin, 10 mg, Oral, Nightly metoprolol tartrate, 25 mg, Oral, BID mometasone-formoterol, 2 puff, Inhalation, BID senna-docusate sodium, 1 tablet, Oral, Daily spironolactone, 25 mg, Oral, Daily tiZANidine, 4 mg, Oral, TID traZODone, 25 mg, Oral, Nightly Infusion Medications: Physical Examination: Vitals: 10/17/24 2335 10/18/24 0215 10/18/24 0759 10/18/24 1101 BP: (!) 149/99 114/65 115/77 BP Location: Left arm Left arm Left arm Patient Position: Lying Lying Sitting Pulse: 82 77 100 Resp: 18 18 16 Temp: 36 C (96.8 F) 36.1 C (97 F) TempSrc: Tympanic Temporal SpO2: 96% 96% 93% Weight: 135 lb 3.2 oz (61.3 kg) 135 lb (61.2 kg) Height: 5' 3 (1.6 m) 5' 3 (1.6 m) Intake/Output Summary (Last 24 hours) at 10/18/2024 1151 Last data filed at 10/17/2024 1532 Gross per 24 hour Intake 50 ml Output -- Net 50 ml Patient Vitals for the past 168 hrs: Weight Weight Method 10/18/24 1101 135 lb (61.2 kg) -- 10/18/24214 135 lb 3.2 oz (61.3 kg) Bed scale 10/17/24 1058 123 lb (55.8 kg) Stated Physical Exam Constitutional: NAD Psychiatric: Alert, pleasant. Medical insight poor Neck: No JVD Respiratory: Lungs are diminished rales and rhonchi Heart: irreg ; Nl S1 and S2, no murmur, no rub, gallop Abdomen: NABS; soft, non-tender, non-distended Extremities: no LE edema Skin: Warm to touch and well perfused Laboratory Tests: TROPONIN I, CONVENTIONAL SENSITIVITY CK Date Value Ref Range Status 04/10/2024 29 (L) 30 - 170 U/L Final TROPONIN I Date Value Ref Range Status 04/10/2024 <0.012 <0.034 ng/mL Final TROPONIN I, HIGH SENSITIVITY Troponin HS Serial Baseline Date Value Ref Range Status 10/17/2024 76 (H) <=14 ng/L Final Comment: In individuals presenting with symptoms > 2h, a baseline troponin <= 5 ng/L suggests acute cardiac injury is unlikely and further serial testing is generally not indicated. 10/17/2024 82 (H) <=14 ng/L Final Comment: In individuals presenting with symptoms > 2h, a baseline troponin <= 5 ng/L suggests acute cardiac injury is unlikely and further serial testing is generally not indicated. 2h Troponin HS (Serial 2nd Troponin) Date Value Ref Range Status 10/17/2024 81 (H) <=14 ng/L Final Comment: Rising or falling troponin delta between 2 - 15 ng/L as compared to baseline value requires a 3rd serial troponin 10/17/2024 83 (H) <=14 ng/L Final Comment: Rising or falling troponin delta below 2 ng/L as compared to baseline value suggests that acute cardiac injury is unlikely. No results found for: TROPDELTBASE No results found for: TROPHS3 No results found for: TROPDELTSEC Recent Labs 10/17/24 1113 NA 137 K 4.2 CL 109* CO2 19* BUN 17 CREATININE 0.87 Recent Labs 10/17/24 1113 WBC 6.8 HGB 12.4 HCT 37.1 MCV 98.1 PLT 303 No results for input(s): BNP in the last 72 hours. No results for input(s): TRIG, HDL, LDLCALC, CHOL in the last 72 hours. No results found for: LDLCHOLESTER Lab Results Component Value Date TSH 2.48 10/17/2024 EF BP Date Value Ref Range Status 10/18/2024 62 55 - 100 % No results found for this or any previous visit. Other reports reviewed: Cardiac Tests: ECG: Tracing reviewed. Telemetry findings reviewed: A fib 80s EF BP Date Value Ref Range Status 10/18/2024 62 55 - 100 % ZULAY Collins CNP Date Of Service 10/18/2024 Hospitalist Progress Note 10/18/[phone]: Please page me ([phone]) for patient care issues. [phone]: Please page [facility] Hospitalist for any issues. Subjective: Admit Date: 10/17/2024 PCP: Kathi Juarez MD Room#: B2-254/B2-254 B Interval History: patient reported to have 7 beats of v tach this afternoon. Denies chest pain or sob. No abdominal pain, nausea, vomiting. No fevers or chills. Has dementia but able to conversate. Appears comfortable in bed in NAD. Adult diet Regular @[id number]@ 24HR INTAKE/OUTPUT: Intake/Output Summary (Last 24 hours) at 10/18/2024 1054 Last data filed at 10/17/2024 1532 Gross per 24 hour Intake 50 ml Output -- Net 50 ml Past Medical History: Past Medical History: Diagnosis Date Afib (CMS/HCC) (HCC) Anxiety CHF (congestive heart failure) (HCC) COPD (chronic obstructive pulmonary disease) (HCC) Dementia (HCC) Hyperlipidemia Hypertension Hypothyroid LABS: CBC: Recent Labs 10/17/24 1113 WBC 6.8 RBC 3.78* HGB 12.4 HCT 37.1 MCV 98.1 RDW 13.2 PLT 303 BMP: Recent Labs 10/17/24 1113 NA 137 K 4.2 CL 109* CO2 19* BUN 17 CREATININE 0.87 GLUCOSE 114 CALCIUM 9.2 ANIONGAP 9 LIVER PROFILE: Recent Labs 10/17/24 1113 AST 30 ALT 14 BILITOT 1.0 ALKPHOS 70 PROT 6.6 PT/INR: No results for input(s): PROTIME, INR in the last 72 hours. CARDIAC ENZYMES: No results for input(s): TROPONINI in the last 72 hours. Procalcitonin: No results found for: PROCAL COVID-19 PCR: No results for input(s): COVID19 in the last 72 hours. Objective: Vitals: BP 115/77 (BP Location: Left arm, Patient Position: Sitting) Pulse 100 Temp 36.1 C (97 F) (Temporal) Resp 16 Ht 5' 3 (1.6 m) Wt 135 lb 3.2 oz (61.3 kg) SpO2 93% BMI 23.95 kg/m Pulse Ox: SpO2 Av.3 % Min: 93 % Max: 98 % Supplemental O2: O2 Flow Rate (L/min): 1 L/min General appearance: No apparent distress, appears stated age, HEENT: Eyes: No scleral icterus Oral: Tongue is semi-moist Cardiovascular: S1/S2 heard, irregular Respiratory: Clear to auscultation bilaterally Abdomen: Soft, non-tender, non-distended bowel sounds positive Musculoskeletal: No obvious deformities seen Skin: No visible rashes or lesions. Medications: apixaban, 2.5 mg, Oral, BID busPIRone, 5 mg, Oral, BID cefTRIAXone, 1,000 mg, IntraVENous, q24h escitalopram, 15 mg, Oral, Daily furosemide, 20 mg, Oral, Daily levothyroxine, 25 mcg, Oral, qAM AC losartan, 50 mg, Oral, BID melatonin, 10 mg, Oral, Nightly metoprolol tartrate, 25 mg, Oral, BID mometasone-formoterol, 2 puff, Inhalation, BID senna-docusate sodium, 1 tablet, Oral, Daily spironolactone, 25 mg, Oral, Daily tiZANidine, 4 mg, Oral, TID traZODone, 25 mg, Oral, Nightly Assessment Acute, acute on chronic, unstable/uncontrolled chronic problems/diagnoses: # Chronic A.fib with RVR - resumed Eliquis and started on metoprolol 25mg bid per cardiology. Rate is controlled now. # Mild acute on chronic HFpEF exacerbation due to above per cardiology - okay to continue lasix 20mg daily but cardiology added aldactone 25mg daily as well. # Chest pain with elevated troponin - suspect demand related to A.fib RVR per cardiology. # Acute UTI - on rocephin. Follow up urine cx/sens # 7 beat run of Vtach on 10/18 - cardiology aware and recommends to keep K above 4 and mag above 2. # Code status: Called and spoke with son Parris who is POA ([phone]) on admission to verify. He states patient is to be Full code. Stable chronic problems affecting care, new non-acute diagnoses: # HLD - diet controlled? Not on antilipid meds # Chronic HTN - on Cozaar and was started here on metoprolol as per cardiology. BP controlled # Chronic Hypothyroidism - resumed synthroid. Check TSH # COPD - stable, resumed inhaler # Hx of depression and Anxiety - resumed buspar, trazodone and lexapro # Hx of L1 burst fracture # Alzheimers dementia # Hearing loss # Hx of lumbar Spinal stenosis and chronic back pain # Hx of Tinnitus # Chronic Diastolic heart failure - resumed home lasix and was started on Aldactone 25mg daily per cardiology. # Pulmonary HTN Plan -Echo pending -cardiology added metoprolol BID. Continue eliquis -cardiology added Aldactone. Continue home lasix the same. -continue IV rocephin and follow up urine cx/sens (pending) -check mag and K -check daily labs Extended Emergency Contact Information Primary Emergency Contact: Parris Friedman Mobile Relation: Son Secondary Emergency Contact: Jaylan Friedman Mobile Relation: Son Preferred language: Salvadorean Roll Cutter needed? No Phill Forte MD Division of Hospitalist Medicine Inpatient Medical Services[place] [place]: Epic chat documented in this encounter [facility] 10-18-2024 Note Problem: Knowledge D eficit Goal: Patient/family/caregiver demonstrates understanding of disease process, treatment plan, medications, and discharge instructions Outcome: Progressing [facility] 10-18-2024 Plan of care note Problem: Knowledge Deficit Goal: Patient/family/caregiver demonstrates understanding of disease process, treatment plan, medications, and discharge instructions Outcome: Progressing [facility] 10-18-2024 Note Formatting of this n ote might be different from the original. Rounds this am DCP: From [facility] Sent return referral: she is LTC and a Bedhold, She can return when stable. Per notes: Atrial fibrillation, recurrent, appears to be symptomatic. Heart failure, based on dyspnea, jugular venous distention, and some evidence of congestion by chest x-ray With the high-sensitivity troponins being flat, this is probably not an acute coronary syndrome, probably just small myocardial injury related to the atrial fibrillation and heart failure [facility] 10-18-2024 Note Formatting of this n ote might be different from the original. Rounds this am DCP: [facility] Sent return referral: she is LTC and a Bedhold, She can return when stable. Per notes: Atrial fibrillation, recurrent, appears to be symptomatic. Heart failure, based on dyspnea, jugular venous distention, and some evidence of congestion by chest x-ray With the high-sensitivity troponins being flat, this is probably not an acute coronary syndrome, probably just small myocardial injury related to the atrial fibrillation and heart failure [facility] 10-18-2024 Note Formatting of this n ote might be different from the original. Referral placed to return back to [facility] via [facility] per [facility] request. Await review and response regarding ability to accept. TCC notified. [facility] 10-18-2024 Note Formatting of this n ote might be different from the original. Referral placed to return back to [facility] via [facility] per T[facility] request. Await review and response regarding ability to accept. TCC notified. [facility] 10-18-2024 Note Referral placed to r eturn back to [facility] via [facility] per TCC request. Await review and response regarding ability to accept. TCC notified. [facility] 10-17-2024 Consult note Associated Order (s): IP CONSULT TO CARDIOLOGY Images from the original note were not included. [facility] ED [address] [address] Dept: [phone] This is an 84-year-old woman seen for atrial fibrillation. Her history includes Paroxysmal atrial fibrillation. I followed the [facility] note from August 23, 2024 noting atrial fibrillation and the use of apixaban 2.5 mg twice daily based on her age and weight of 56 kg. Hypertension Dementia Chronic obstructive pulmonary disease She resides in a skilled facility. She says that she no longer drives. Her son does her shopping for her. She does state that she has memory problems. She does not know what medication she takes. She does not recall her medical history or remember atrial fibrillation. What she did tell me was that when she woke up this morning she felt very poorly. She was so fatigued that she could hardly get out of bed. She denied palpitations or chest pain or shortness of breath. She came to the emergency department and was found to be in atrial fibrillation. She was brought by EMS from [facility] in [place] for what they said was chest pain that started last night. They also noted shortness of breath. Thus, the history from the initial emergency department records is different than what she told me. Other notes state that the chest pain started this morning. Currently, she is not having any chest pain or shortness of breath. In reviewing the note from the [facility] sotalol and diltiazem was stopped due to bradycardia. According to the admission notes her outpatient medications included buspirone 5 mg twice a day, calcium carbonate 500 mg as needed for indigestion, escitalopram 15 mg daily, fluticasone salmeterol 1 puff in the morning and 1 puff in the evening, furosemide 20 mg daily, levothyroxine 88 mg daily, losartan 50 mg daily, melatonin 3 mg tablets 9 mg at night, MiraLAX, potassium chloride 60 mill equivalents daily, Juanis-Colace, tizanidine 4 mg 3 times a day and trazodone 25 mg at night. She is a former cigarette smoker On exam she is in no distress. She is lying flat and breathing quietly. Her heart rate is 106 222 and irregular, respirate 14, blood pressure 128/95, oxygen saturation 96% on room air. She does have jugular venous distention. Heart sounds are regular. She has no significant edema. She is breathing quietly lying supine. Electrocardiogram which I reviewed shows atrial fibrillation, leftward axis, poor R wave progression, nonspecific ST-T abnormality. I reviewed an electrocardiogram from April 10, 2024 which shows sinus bradycardia at 48, left axis, nonspecific ST-T abnormality. There is no record of echocardiograms in the chart. Urinalysis is consistent with a UTI. Complete metabolic panel is basically normal with a GFR of 67, troponin high-sensitivity 82 and 83, hemoglobin 12.4, platelets 303. I reviewed her chest x-ray which shows bilateral breast implants and mild increase in vascular blayne. So far all viral screening is negative. Medical decision making Atrial fibrillation, recurrent, appears to be symptomatic. Heart failure, based on dyspnea, jugular venous distention, and some evidence of congestion by chest x-ray With the high-sensitivity troponins being flat, this is probably not an acute coronary syndrome, probably just small myocardial injury related to the atrial fibrillation and heart failure Dementia Probable urinary tract infection Recommend Initially, I would just recommend rate control. At least short-term, I would put her on apixaban 2.5 mg twice a day. If she truly has a urinary tract infection, treating that will be helpful. Check an echocardiogram and based on her therapy on that. I will have her on oral furosemide and spironolactone at least short-term. [facility] [employer] Phone: 10-17-2024 Consult note Associated Order (s): IP CONSULT TO CARDIOLOGY Images from the original note were not included. [facility] ED [address] [address] Dept: [phone] This is an 84-year-old woman seen for atrial fibrillation. Her history includes Paroxysmal atrial fibrillation. I followed the [facility] note from August 23, 2024 noting atrial fibrillation and the use of apixaban 2.5 mg twice daily based on her age and weight of 56 kg. Hypertension Dementia Chronic obstructive pulmonary disease She resides in a skilled facility. She says that she no longer drives. Her son does her shopping for her. She does state that she has memory problems. She does not know what medication she takes. She does not recall her medical history or remember atrial fibrillation. What she did tell me was that when she woke up this morning she felt very poorly. She was so fatigued that she could hardly get out of bed. She denied palpitations or chest pain or shortness of breath. She came to the emergency department and was found to be in atrial fibrillation. She was brought by EMS from [facility] in [place] for what they said was chest pain that started last night. They also noted shortness of breath. Thus, the history from the initial emergency department records is different than what she told me. Other notes state that the chest pain started this morning. Currently, she is not having any chest pain or shortness of breath. In reviewing the note from the [facility] sotalol and diltiazem was stopped due to bradycardia. According to the admission notes her outpatient medications included buspirone 5 mg twice a day, calcium carbonate 500 mg as needed for indigestion, escitalopram 15 mg daily, fluticasone salmeterol 1 puff in the morning and 1 puff in the evening, furosemide 20 mg daily, levothyroxine 88 mg daily, losartan 50 mg daily, melatonin 3 mg tablets 9 mg at night, MiraLAX, potassium chloride 60 mill equivalents daily, Juanis-Colace, tizanidine 4 mg 3 times a day and trazodone 25 mg at night. She is a former cigarette smoker On exam she is in no distress. She is lying flat and breathing quietly. Her heart rate is 106 222 and irregular, respirate 14, blood pressure 128/95, oxygen saturation 96% on room air. She does have jugular venous distention. Heart sounds are regular. She has no significant edema. She is breathing quietly lying supine. Electrocardiogram which I reviewed shows atrial fibrillation, leftward axis, poor R wave progression, nonspecific ST-T abnormality. I reviewed an electrocardiogram from April 10, 2024 which shows sinus bradycardia at 48, left axis, nonspecific ST-T abnormality. There is no record of echocardiograms in the chart. Urinalysis is consistent with a UTI. Complete metabolic panel is basically normal with a GFR of 67, troponin high-sensitivity 82 and 83, hemoglobin 12.4, platelets 303. I reviewed her chest x-ray which shows bilateral breast implants and mild increase in vascular blayne. So far all viral screening is negative. Medical decision making Atrial fibrillation, recurrent, appears to be symptomatic. Heart failure, based on dyspnea, jugular venous distention, and some evidence of congestion by chest x-ray With the high-sensitivity troponins being flat, this is probably not an acute coronary syndrome, probably just small myocardial injury related to the atrial fibrillation and heart failure Dementia Probable urinary tract infection Recommend Initially, I would just recommend rate control. At least short-term, I would put her on apixaban 2.5 mg twice a day. If she truly has a urinary tract infection, treating that will be helpful. Check an echocardiogram and based on her therapy on that. I will have her on oral furosemide and spironolactone at least short-term. RBC documented in this encounter [facility] 10-17-2024 History and physical note Attending History and Physical Admit Date: 10/17/2024 PCP: Kathi Juarez MD CHIEF COMPLAINT: Chest pain History Obtained From: patient and ER HISTORY OF PRESENT ILLNESS: Sommer is a 84 y.o. female who presents to the emergency department with chest pain occurring this morning. She is from [facility]. Pain was midchest and she had hard describing it to me. But states no pain currently. She has known hx of A.fib and was in RVR with HR in the 120s in ER. She is very pleasant, appears comfortable in NAD, but could not tell me year (said 2015) and place (states she has no idea where she is). Currently not feeling particularly ill not having any pain anywhere. Denies any shortness of breath, cough, fever, nausea, vomiting, abdominal pain, extremity swelling. Past Medical History: Chronic A.fib HLD HTN Hypothyroidism COPD Anxiety L1 burst fracture Alzheimers dementia Depression Hearing loss Spinal stenosis Tinnitus Chronic Diastolic heart failure Chronic back pain Pulmonary HTN Past Surgical History: History reviewed. No pertinent surgical history. Family History: No family history on file. Medications Prior to Admission: No current facility-administered medications on file prior to encounter. Current Outpatient Medications on File Prior to Encounter Medication Sig Dispense Refill biotin 5 MG capsule Take 5 mg by mouth daily. busPIRone (Buspar) 5 MG tablet Take 5 mg by mouth 2 times daily. calcium carbonate (Tums) 500 MG chewable tablet Chew 500 mg as needed for indigestion or heartburn. carboxymethylcellulose (Refresh Plus) 0.5 % ophthalmic solution Administer 2 drops into both eyes in the morning and 2 drops in the evening. escitalopram (Lexapro) 10 MG tablet Take 15 mg by mouth daily. Fluticasone-Salmeterol (Advair Diskus) 500-50 MCG/ACT aerosol powder Inhale 1 puff in the morning and 1 puff in the evening. furosemide (Lasix) 20 MG tablet Take 20 mg by mouth daily. levothyroxine (Tirosint) 88 MCG capsule Take 88 mcg by mouth every morning (before breakfast). losartan (Cozaar) 50 MG tablet Take 50 mg by mouth 2 times daily. Melatonin 3 MG tablet dispersible Take 9 mg by mouth before bedtime. polyethylene glycol, PEG, 3350 (Miralax) 17 g packet Take 17 g by mouth Once. potassium chloride CR (Klor-Con M20) 20 MEQ ER tablet Take 60 mEq by mouth daily. Do not crush or chew. senna-docusate (Juanis-Colace) 8.6-50 MG tablet Take 1 tablet by mouth daily. tiZANidine (Zanaflex) 4 MG tablet Take 4 mg by mouth in the morning and 4 mg at noon and 4 mg in the evening. traZODone (Desyrel) 50 MG tablet Take 25 mg by mouth Nightly. Allergies: Gabapentin and Propoxyphene Social History: Social History Socioeconomic History Marital status: Spouse name: Not on file Number of children: Not on file Years of education: Not on file Highest education level: Not on file Occupational History Not on file Tobacco Use Smoking status: Unknown Smokeless tobacco: Not on file Vaping Use Vaping status: Unknown Substance and Sexual Activity Alcohol use: Not Currently Drug use: Defer Sexual activity: Not on file Other Topics Concern Not on file Social History Narrative Not on file Social Drivers of Health Financial Resource Strain: Not on file Food Insecurity: Not on file Transportation Needs: Not on file Physical Activity: Not on file Stress: Not on file Social Connections: Not on file Intimate Partner Violence: Patient Unable To Answer (04/11/2024) Humiliation, Afraid, Rape, and Kick questionnaire Fear of Current or Ex-Partner: Patient unable to answer Emotionally Abused: Patient unable to answer Physically Abused: Patient unable to answer Sexually Abused: Patient unable to answer Housing Stability: Not on file REVIEW OF SYSTEMS: Other than patient's chronic conditions and those complaints in the history above, the rest of the 10 systems review were done and were negative. Vitals: BP (!) 165/103 Pulse 108 Temp 36.6 C (97.9 F) (Oral) Resp 19 Ht 5' 3 (1.6 m) Wt 123 lb (55.8 kg) SpO2 94% BMI 21.79 kg/m BMI Classification: Normal Weight (BMI 18.5-24.9) Pulse Ox: SpO2 Av % Min: 94 % Max: 98 % Supplemental O2: PHYSICAL EXAM: General appearance: No apparent distress, appears stated age and cooperative with exam. HEENT: Eyes: No scleral icterus Oral: Tongue is semi-moist Cardiovascular: S1/S2 heard, irregular and tachy Respiratory: Clear to auscultation bilaterally Abdomen: Soft, non-tender, non-distended bowel sounds positive Musculoskeletal: No obvious deformities seen Skin: No visible rashes or lesions. DATA: CBC: Recent Labs 10/17/24 1113 WBC 6.8 RBC 3.78* HGB 12.4 HCT 37.1 MCV 98.1 RDW 13.2 PLT 303 BMP: Recent Labs 10/17/24 1113 NA 137 K 4.2 CL 109* CO2 19* BUN 17 CREATININE 0.87 GLUCOSE 114 CALCIUM 9.2 ANIONGAP 9 LIVER PROFILE: Recent Labs 10/17/24 1113 AST 30 ALT 14 BILITOT 1.0 ALKPHOS 70 PROT 6.6 PT/INR: No results for input(s): PROTIME, INR in the last 72 hours. CARDIAC ENZYMES: No results for input(s): TROPONINI in the last 72 hours. Procalcitonin: No results found for: PROCAL Urine Culture: No results found for this or any previous visit. COVID-19 PCR: No results for input(s): COVID19 in the last 72 hours. I reviewed: [x] laboratory results [x] radiographic results At the time of today's encounter. Pt was advised of the results. IMPRESSION: Acute, acute on chronic, unstable/uncontrolled chronic problems/diagnoses: # Chronic A.fib with RVR - resume Eliquis. # Chest pain with elevated troponin - suspect demand related to above. Rule out ACS # Acute UTI - on rocephin. Follow up urine cx/sens # Code status: Called and spoke with son Parris who is POA ([phone]) to verify. He states patient is to be Full code. Stable chronic problems affecting care, new non-acute diagnoses: # HLD - diet controlled? Not on antilipid meds # Chronic HTN # Chronic Hypothyroidism - resumed synthroid. Check TSH # COPD - stable, resumed inhaler # Hx of depression and Anxiety - resumed buspar, trazodone and lexapro # Hx of L1 burst fracture # Alzheimers dementia # Hearing loss # Hx of lumbar Spinal stenosis and chronic back pain # Hx of Tinnitus # Chronic Diastolic heart failure - resumed home lasix # Pulmonary HTN PLAN: Resume home meds, add PRN lopressor IV until seen by cardiology, monitor on tele, serial HS troponin, check echo, consult to cardiology, check TSH, Rocephin IV and follow up urine cx/sens, up with assist, PT/OT, called son Parris and updated him. -PT/OT eval/increase activity -am labs, replace lytes prn -vitals per routine -home meds as ordered -DVT prophylaxis: [] Lovenox [] Heparin [] SCDs [x] Encourage ambulation [] Already on Anticoagulation -see below for additional orders, further recommendations to follow Orders Placed This Encounter Procedures COVID-19, Flu A/B, and RSV Combo Urine culture XR chest 1 view Basic metabolic panel CBC auto differential Serial Troponin, High Sensitivity D-dimer, quantitative Lipase Hepatic function panel Complete Urinalysis with reflex to Culture Complete Urinalysis Troponin, High Sensitivity, Serial, Second Test Vital Signs Telemetry monitoring for Arrhythmia Management ECG 12 lead Insert peripheral IV Admit to inpatient Code status: Prior Please forward a copy of this H&P to the patient's PCP. Thank you. Electronically signed by @[email or web address]@ on @TDNR@ at @NOWNR@ [facility] 10-17-2024 Note [facility] 10-17-2024 History and physical note Attending History and Physical Admit Date: 10/17/2024 PCP: Kathi Juarez MD CHIEF COMPLAINT: Chest pain History Obtained From: patient and ER HISTORY OF PRESENT ILLNESS: Sommer is a 84 y.o. female who presents to the emergency department with chest pain occurring this morning. She is from [facility]. Pain was midchest and she had hard describing it to me. But states no pain currently. She has known hx of A.fib and was in RVR with HR in the 120s in ER. She is very pleasant, appears comfortable in NAD, but could not tell me year (said 2015) and place (states she has no idea where she is). Currently not feeling particularly ill not having any pain anywhere. Denies any shortness of breath, cough, fever, nausea, vomiting, abdominal pain, extremity swelling. Past Medical History: Chronic A.fib HLD HTN Hypothyroidism COPD Anxiety L1 burst fracture Alzheimers dementia Depression Hearing loss Spinal stenosis Tinnitus Chronic Diastolic heart failure Chronic back pain Pulmonary HTN Past Surgical History: History reviewed. No pertinent surgical history. Family History: No family history on file. Medications Prior to Admission: No current facility-administered medications on file prior to encounter. Current Outpatient Medications on File Prior to Encounter Medication Sig Dispense Refill biotin 5 MG capsule Take 5 mg by mouth daily. busPIRone (Buspar) 5 MG tablet Take 5 mg by mouth 2 times daily. calcium carbonate (Tums) 500 MG chewable tablet Chew 500 mg as needed for indigestion or heartburn. carboxymethylcellulose (Refresh Plus) 0.5 % ophthalmic solution Administer 2 drops into both eyes in the morning and 2 drops in the evening. escitalopram (Lexapro) 10 MG tablet Take 15 mg by mouth daily. Fluticasone-Salmeterol (Advair Diskus) 500-50 MCG/ACT aerosol powder Inhale 1 puff in the morning and 1 puff in the evening. furosemide (Lasix) 20 MG tablet Take 20 mg by mouth daily. levothyroxine (Tirosint) 88 MCG capsule Take 88 mcg by mouth every morning (before breakfast). losartan (Cozaar) 50 MG tablet Take 50 mg by mouth 2 times daily. Melatonin 3 MG tablet dispersible Take 9 mg by mouth before bedtime. polyethylene glycol, PEG, 3350 (Miralax) 17 g packet Take 17 g by mouth Once. potassium chloride CR (Klor-Con M20) 20 MEQ ER tablet Take 60 mEq by mouth daily. Do not crush or chew. senna-docusate (Juanis-Colace) 8.6-50 MG tablet Take 1 tablet by mouth daily. tiZANidine (Zanaflex) 4 MG tablet Take 4 mg by mouth in the morning and 4 mg at noon and 4 mg in the evening. traZODone (Desyrel) 50 MG tablet Take 25 mg by mouth Nightly. Allergies: Gabapentin and Propoxyphene Social History: Social History Socioeconomic History Marital status: Spouse name: Not on file Number of children: Not on file Years of education: Not on file Highest education level: Not on file Occupational History Not on file Tobacco Use Smoking status: Unknown Smokeless tobacco: Not on file Vaping Use Vaping status: Unknown Substance and Sexual Activity Alcohol use: Not Currently Drug use: Defer Sexual activity: Not on file Other Topics Concern Not on file Social History Narrative Not on file Social Drivers of Health Financial Resource Strain: Not on file Food Insecurity: Not on file Transportation Needs: Not on file Physical Activity: Not on file Stress: Not on file Social Connections: Not on file Intimate Partner Violence: Patient Unable To Answer (04/11/2024) Humiliation, Afraid, Rape, and Kick questionnaire Fear of Current or Ex-Partner: Patient unable to answer Emotionally Abused: Patient unable to answer Physically Abused: Patient unable to answer Sexually Abused: Patient unable to answer Housing Stability: Not on file REVIEW OF SYSTEMS: Other than patient's chronic conditions and those complaints in the history above, the rest of the 10 systems review were done and were negative. Vitals: BP (!) 165/103 Pulse 108 Temp 36.6 C (97.9 F) (Oral) Resp 19 Ht 5' 3 (1.6 m) Wt 123 lb (55.8 kg) SpO2 94% BMI 21.79 kg/m BMI Classification: Normal Weight (BMI 18.5-24.9) Pulse Ox: SpO2 Av % Min: 94 % Max: 98 % Supplemental O2: PHYSICAL EXAM: General appearance: No apparent distress, appears stated age and cooperative with exam. HEENT: Eyes: No scleral icterus Oral: Tongue is semi-moist Cardiovascular: S1/S2 heard, irregular and tachy Respiratory: Clear to auscultation bilaterally Abdomen: Soft, non-tender, non-distended bowel sounds positive Musculoskeletal: No obvious deformities seen Skin: No visible rashes or lesions. DATA: CBC: Recent Labs 10/17/24 1113 WBC 6.8 RBC 3.78* HGB 12.4 HCT 37.1 MCV 98.1 RDW 13.2 PLT 303 BMP: Recent Labs 10/17/24 1113 NA 137 K 4.2 CL 109* CO2 19* BUN 17 CREATININE 0.87 GLUCOSE 114 CALCIUM 9.2 ANIONGAP 9 LIVER PROFILE: Recent Labs 10/17/24 1113 AST 30 ALT 14 BILITOT 1.0 ALKPHOS 70 PROT 6.6 PT/INR: No results for input(s): PROTIME, INR in the last 72 hours. CARDIAC ENZYMES: No results for input(s): TROPONINI in the last 72 hours. Procalcitonin: No results found for: PROCAL Urine Culture: No results found for this or any previous visit. COVID-19 PCR: No results for input(s): COVID19 in the last 72 hours. I reviewed: [x] laboratory results [x] radiographic results At the time of today's encounter. Pt was advised of the results. IMPRESSION: Acute, acute on chronic, unstable/uncontrolled chronic problems/diagnoses: # Chronic A.fib with RVR - resume Eliquis. # Chest pain with elevated troponin - suspect demand related to above. Rule out ACS # Acute UTI - on rocephin. Follow up urine cx/sens # Code status: Called and spoke with kaushal Huitron who is POA ([phone]) to verify. He states patient is to be Full code. Stable chronic problems affecting care, new non-acute diagnoses: # HLD - diet controlled? Not on antilipid meds # Chronic HTN # Chronic Hypothyroidism - resumed synthroid. Check TSH # COPD - stable, resumed inhaler # Hx of depression and Anxiety - resumed buspar, trazodone and lexapro # Hx of L1 burst fracture # Alzheimers dementia # Hearing loss # Hx of lumbar Spinal stenosis and chronic back pain # Hx of Tinnitus # Chronic Diastolic heart failure - resumed home lasix # Pulmonary HTN PLAN: Resume home meds, add PRN lopressor IV until seen by cardiology, monitor on tele, serial HS troponin, check echo, consult to cardiology, check TSH, Rocephin IV and follow up urine cx/sens, up with assist, PT/OT, called kaushal Huitron and updated him. -PT/OT eval/increase activity -am labs, replace lytes prn -vitals per routine -home meds as ordered -DVT prophylaxis: [] Lovenox [] Heparin [] SCDs [x] Encourage ambulation [] Already on Anticoagulation -see below for additional orders, further recommendations to follow Orders Placed This Encounter Procedures COVID-19, Flu A/B, and RSV Combo Urine culture XR chest 1 view Basic metabolic panel CBC auto differential Serial Troponin, High Sensitivity D-dimer, quantitative Lipase Hepatic function panel Complete Urinalysis with reflex to Culture Complete Urinalysis Troponin, High Sensitivity, Serial, Second Test Vital Signs Telemetry monitoring for Arrhythmia Management ECG 12 lead Insert peripheral IV Admit to inpatient Code status: Prior Please forward a copy of this H&P to the patient's PCP. Thank you. Electronically signed by @MEMDNR@ on @TDNR@ at @NOWNR@ documented in this encounter [facility] 10-17-2024 Emergency department Note This is my TIMBO supervisory and shared visit note: I, Ag Meng MD, personally evaluated/saw the patient and made/approve the management plan and take responsibility for the patient management. I performed a substantive portion of the physical examination, history and medical decision making. Appropriate PPE including n 95, gown, gloves, goggles where worn when appropriate with this patient. History: Brought in via squad from [facility] [place] for chest pain started last night. Complaint chest pain shortness of breath. Exam: Heart irregular regular. Lungs coarse breath sounds. MDM: EKG shows irregular rhythm which appears to be atrial fibrillation. There is no history of atrial fibrillation in the past. Will obtain chest x-ray blood work D-dimer will get COVID RSV. I do not believe she is septic. She is tachycardic but it appears that she has new onset atrial fibrillation. At this time I do not believe she requires beta-neto but appears that the atrial fibrillation is new. She does not have any infectious complaints. Chest x-ray shows what I believe is likely atelectasis do not believe it is infiltrate. Her troponin is elevated at 82. I will give her aspirin and Lovenox. She has a heart score of 7. Through shared decision-making she agrees to this plan. Communicated with the hospitalist who agrees to admit. I do not believe this is PE. Age-adjusted D-dimer is normal. Further details please see TIMBO note. Critical care time: I personally saw the patient and independently provided least 35 minutes of non-concurrent critical care out of the total shared critical care time provided. Independent of any separately billable procedures. Please note TIMBO was reviewing records from the [facility] and it does appear that she has had atrial fibrillation in the past. Patient was unaware but that is certainly not unreasonable for her not to know. She is currently not anticoagulated. I still believe with her elevated troponin she does need to be admitted given that she was having chest pain. Via secure chat I did update the hospitalist. Comment: Please note this report has been produced using speech recognition software and may contain errors related to that system including errors in grammar, punctuation, and spelling, as well as words and phrases that may be inappropriate. If there is any questions or concerns please feel free to contact the dictating provider for clarification. Ag Meng MD 10/17/24 1218 Ag Meng MD 10/17/24 1319 EMERGENCY DEPARTMENT ENCOUNTER Pt Name: Sommer Friedman Birthdate 1940 Date of evaluation: 10/17/2024 ED Provider: Juno Velez PA-C CHIEF COMPLAINT Chief Complaint Patient presents with Chest Pain Patient brought in by EMS from [facility] for chest pain that started last night. Per SNF patient was complaining of chest pain and SOB starting last night. They that is was due to patient being anxious. The nurse states that she was still having the complaints today so she called to have the patient brought in. Patient denies complaints now. EMS states Chest pain resolved during transport Patient is A&Ox3 HISTORY OF PRESENT ILLNESS (Location/Symptom, Timing/Onset, Context/Setting, Quality, Duration, Modifying Factors, Severity) Note limiting factors. I wore appropriate PPE for the entirety of this encounter. HPI Sommer Friedman is a 84 y.o. female who presents to the emergency department with chest pain occurring this morning, stays at [facility], says and route to hospital pain resolved. Currently not feeling particularly ill not having any pain anywhere. Denies any chest pain, shortness of breath, cough, fever, nausea, vomiting, abdominal pain, extremity swelling. Denies recent sick contacts. Not clear about her own medical history. Nursing Notes were reviewed. Limitations to history: None Outside historians: EMS REVIEW OF SYSTEMS Review of Systems 8 systems reviewed, positives and pertinent negatives as per HPI. All other systems were reviewed and are negative. PAST MEDICAL HISTORY History reviewed. No pertinent past medical history. SURGICAL HISTORY History reviewed. No pertinent surgical history. CURRENT MEDICATIONS Previous Medications BIOTIN 5 MG CAPSULE Take 5 mg by mouth daily. BUSPIRONE (BUSPAR) 5 MG TABLET Take 5 mg by mouth 2 times daily. CALCIUM CARBONATE (TUMS) 500 MG CHEWABLE TABLET Chew 500 mg as needed for indigestion or heartburn. CARBOXYMETHYLCELLULOSE (REFRESH PLUS) 0.5 % OPHTHALMIC SOLUTION Administer 2 drops into both eyes in the morning and 2 drops in the evening. ESCITALOPRAM (LEXAPRO) 10 MG TABLET Take 15 mg by mouth daily. FLUTICASONE-SALMETEROL (ADVAIR DISKUS) 500-50 MCG/ACT AEROSOL POWDER Inhale 1 puff in the morning and 1 puff in the evening. FUROSEMIDE (LASIX) 20 MG TABLET Take 20 mg by mouth daily. LEVOTHYROXINE (TIROSINT) 88 MCG CAPSULE Take 88 mcg by mouth every morning (before breakfast). LOSARTAN (COZAAR) 50 MG TABLET Take 50 mg by mouth 2 times daily. MELATONIN 3 MG TABLET DISPERSIBLE Take 9 mg by mouth before bedtime. POLYETHYLENE GLYCOL, PEG, 3350 (MIRALAX) 17 G PACKET Take 17 g by mouth Once. POTASSIUM CHLORIDE CR (KLOR-CON M20) 20 MEQ ER TABLET Take 60 mEq by mouth daily. Do not crush or chew. SENNA-DOCUSATE (JUANIS-COLACE) 8.6-50 MG TABLET Take 1 tablet by mouth daily. TIZANIDINE (ZANAFLEX) 4 MG TABLET Take 4 mg by mouth in the morning and 4 mg at noon and 4 mg in the evening. TRAZODONE (DESYREL) 50 MG TABLET Take 25 mg by mouth Nightly. ALLERGIES Gabapentin and Propoxyphene FAMILY HISTORY No family history on file. SOCIAL HISTORY Social History Socioeconomic History Marital status: Tobacco Use Smoking status: Unknown Vaping Use Vaping status: Unknown Substance and Sexual Activity Alcohol use: Not Currently Drug use: Defer Social Drivers of Health Intimate Partner Violence: Patient Unable To Answer (04/11/2024) Humiliation, Afraid, Rape, and Kick questionnaire Fear of Current or Ex-Partner: Patient unable to answer Emotionally Abused: Patient unable to answer Physically Abused: Patient unable to answer Sexually Abused: Patient unable to answer SCREENINGS Stacy Coma Scale Best Eye Response: Spontaneous Best Verbal Response: Oriented Best Motor Response: Follows commands [place] Coma Scale Score: 15 PHYSICAL EXAM ED Triage Vitals [10/17/24 1058] Temp Heart Rate Resp BP 36.6 C (97.9 F) (!) 118 (!) 10 (!) 155/97 SpO2 Temp Source Heart Rate Source Patient Position 94 % Oral -- -- BP Location FiO2 (%) -- -- Physical Exam Constitutional: Comments: Elderly female, not overtly distressed cooperative. HENT: Head: Normocephalic and atraumatic. Cardiovascular: Rate and Rhythm: Tachycardia present. Rhythm irregular. Heart sounds: Normal heart sounds. Pulmonary: Effort: Pulmonary effort is normal. Breath sounds: Normal breath sounds and air entry. No decreased breath sounds, wheezing, rhonchi or rales. Abdominal: General: Abdomen is flat. Bowel sounds are normal. Palpations: Abdomen is soft. Comments: Patient winces somewhat when pressing over her belly however it is soft without palpable mass, no nata peritonitis, audible bowel sounds. Musculoskeletal: Cervical back: Normal range of motion. Right lower leg: No edema. Left lower leg: No edema. Skin: General: Skin is warm. Neurological: Mental Status: She is alert. DIAGNOSTIC RESULTS RADIOLOGY (Per Emergency Physician): Interpretation per the Radiologist below, if available at the time of this note: XR chest 1 view Final Result Mild left basilar atelectasis or infiltrates. Report Dictated on Electronically Signed By: Bakari Mcdonnell DR Electronically Signed Date/Time: 10/17/2024 11:35 AM EST LABS: Labs Reviewed BASIC METABOLIC PANEL - Abnormal Result Value SODIUM 137 POTASSIUM 4.2 CHLORIDE 109 (*) CARBON DIOXIDE 19 (*) UREA NITROGEN 17 CREATININE 0.87 GLUCOSE 114 CALCIUM 9.2 ANION GAP 9 eGFR 66.6 CBC WITH AUTO DIFFERENTIAL - Abnormal Auto WBC 6.8 RBC 3.78 (*) Hemoglobin 12.4 Hematocrit 37.1 MCV 98.1 MCH 32.8 MCHC 33.4 RDW 13.2 Platelets 303 MPV 8.9 (*) nRBC 0.0 Neutrophils Relative 62.2 Lymphocytes Relative 24.7 Monocytes Relative 10.5 Eosinophils Relative 1.6 Basophils Relative 0.7 Immature Grans % 0.3 Neutrophils Absolute 4.2 Lymphocytes Absolute 1.7 Monocytes Absolute 0.7 Eosinophils Absolute 0.1 Basophils Absolute 0.1 Immature Grans Absolute 0.0 HIGH SENSITIVITY TROPONIN, SERIAL BASELINE - Abnormal Troponin HS Serial Baseline 82 (*) D-DIMER,QUANTITATIVE - Abnormal D-DIMER, INNOVANCE 0.55 (*) Narrative: Innovance D-Dimer values of <0.50 mg/L FEU can be used in combination with a pre-test probability model (e.g. Well's) to exclude pulmonary embolism (PE) disease, as well as an aid in the diagnosis of deep vein thrombosis (DVT). HEPATIC FUNCTION PANEL - Abnormal BILIRUBIN, TOTAL 1.0 BILIRUBIN, DIRECT 0.4 ALKALINE PHOSPHATASE 70 AST (SGOT) 30 ALT 14 ALBUMIN 3.3 (*) TOTAL PROTEIN 6.6 COMPLETE URINALYSIS - Abnormal Color, Urine Yellow Clarity, Urine Extra Turbid (*) pH, Urine 8.0 Leukocytes, Urine 75 (*) Nitrite, Urine Negative Protein, Urine 30 (*) Glucose, Urine Normal Bilirubin, Urine Negative Ketones, Urine Negative Urobilinogen, Urine Normal Blood, Urine 0.03 (*) RBC, Urine 3-5 (*) WBC, Urine 11-25 (*) Squamous Epithelial, Urine 0-2 Bacteria, Urine Many (*) Triple Phosphate Crystals, Urine Moderate (*) SPECIFIC GRAVITY OF URINE (NUMERIC) 1.014 SARS-COV-2, FLU A/B, AND RSV COMBO - Normal SARS-CoV-2 Not Detected Respiratory Syncytial Virus Not Detected Influenza A Not Detected Influenza B Not Detected Narrative: Methodology: real-time, RT-PCR The SARS-CoV-2, Flu A/B, and RSV Combo assay is intended for in vitro diagnostic use under the FDA Emergency Use Authorization (EUA). This test has not been FDA cleared or approved. In compliance with this authorization, please visit www.fda.gov/media/739424/download or www.fda.gov/media/818511/download to access the applicable information sheets. LIPASE - Normal LIPASE 9 URINE CULTURE COMPLETE URINALYSIS WITH REFLEX TO CULTURE Narrative: The following orders were created for panel order Complete Urinalysis with reflex to Culture. Procedure Abnormality Status --------- ------ Complete Urinalysis[[id number]] Abnormal Final result Please view results for these tests on the individual orders. HIGH SENSITIVITY TROPONIN, SERIAL, SECOND TEST All other labs were within normal range or not returned as of this dictation. EMERGENCY DEPARTMENT COURSE and DIFFERENTIAL DIAGNOSIS/MDM: Vitals: Vitals: 10/17/24 1123 10/17/24 1233 10/17/24 1234 10/17/24 1236 BP: (!) 149/137 (!) 165/103 Pulse: 107 (!) 121 (!) 122 108 Resp: 15 25 17 19 Temp: TempSrc: SpO2: 94% 98% 94% Weight: Height: Medications enoxaparin (Lovenox) syringe 60 mg (60 mg SubCUTAneous Given 10/17/24 1316) aspirin chewable tablet 324 mg (324 mg Oral Given 10/17/24 1316) metoprolol tartrate (Lopressor) tablet 50 mg (50 mg Oral Given 10/17/24 1316) ED care was supervised by Dr. Meng who independently examined and evaluated the patient. Please see their attestation note for further details. In brief, Sommer Friedman is a 84 y.o. female who presented to the emergency department with transient episode of chest pain. Nursing notes and medical records reviewed, per review of external records from [facility] cardiology, office visit 08/23/2024 there is a listed history of atrial fibrillation appears previously on sotalol and diltiazem. Differential considerations included A-fib with RVR, considered underlying precipitant for this such as PE, underlying dehydration or infection. She is not describing any infectious symptoms. Considered atypical ACS. Initial medical management includes telemetry monitoring. On initial eval heart rate is low 100s, considered metoprolol or diltiazem, will hold for now, may consider later if heart rates are elevated, anticipate admission given mild RVR. Initial workup includes EKG, screening labs, D-dimer, troponin, chest x-ray. Other workup considerations included CTA chest if D-dimer is elevated. Upon reassessment patient stable, heart rate low 100s, still appears to be atrial fibrillation. Lab workup results reviewed, EKG showed atrial fibrillation rate 111 bpm with old anterior infarct, nonspecific lateral T abnormality and minimal ST elevation laterally, prior EKG from March 2024 was sinus bradycardia. CBC shows no significant leukocytosis or anemia. Metabolic panel shows serum bicarb slightly low at 19, normal anion gap, normal renal function, chloride 109 otherwise normal electrolytes. High-sensitivity troponin elevated at 84 suspect secondary to rate due to A-fib. D-dimer age-adjusted negative at 0.55. Lipase normal at 9. Viral panel negative. Single view chest x-ray radiology shows mild left basilar atelectasis or infiltrates. Patient not describing any cough, is not short of breath, is afebrile with normal WBC, less suspicion for pneumonia currently. Chronic conditions contributing to patients presentation include atrial fibrillation. I have low suspiscion for underlying PE in setting of age-adjusted negative D-dimer. Less suspicion for underlying sepsis given lack of clear infectious source, no SIRS criteria other than tachycardia. Social determinants to care: None identified Discussed results with patient recommended admission for atrial fibrillation with mild RVR and elevated troponin, further cardiac evaluation she was agreeable. Discussed case with admitting hospitalist Dr. Trent and Dr. Forte, agreed with plans for hospitalization, admitted to telemetry in stable condition. PROCEDURES: Unless otherwise noted below, none Procedures FINAL IMPRESSION 1. NSTEMI (non-ST elevated myocardial infarction) (HCC) 2. Atrial fibrillation with RVR (HCC) DISPOSITION Admit 10/17/2024 12:19:00 PM PATIENT REFERRED TO: No follow-up provider specified. DISCHARGE MEDICATIONS: New Prescriptions No medications on file (Comment: Please note this report has been produced using speech recognition software and may contain errors related to that system including errors in grammar, punctuation, and spelling, as well as words and phrases that may be inappropriate. If there are any questions or concerns please feel free to contact the dictating provider for clarification.) Juno Velez PA-C (electronically signed) Emergency Medicine Provider Juno Velez PA-C 10/17/24 1325 Juno Velez PA-C 10/17/241324 Cosigned by Ag Meng MD at 10/17/2024 2:06 PM EST Patient brought in by EMS from [facility] for chest pain that started last night. Per SNF patient was complaining of chest pain and SOB starting last night. They that is was due to patient being anxious. The nurse states that she was still having the complaints today so she called to have the patient brought in. Patient is A&Ox3 documented in this encounter [facility] 10-17-2024 Emergency department Triage note Patient brought in by EMS from [facility] for chest pain that started last night. Per SNF patient was complaining of chest pain and SOB starting last night. They that is was due to patient being anxious. The nurse states that she was still having the complaints today so she called to have the patient brought in. Patient is A&Ox3 [facility] 10-17-2024 Physician Emergency department Note This is my TIMBO supervisory and shared visit note: I, Ag Meng MD, personally evaluated/saw the patient and made/approve the management plan and take responsibility for the patient management. I performed a substantive portion of the physical examination, history and medical decision making. Appropriate PPE including n 95, gown, gloves, goggles where worn when appropriate with this patient. History: Brought in via squad from [facility] for chest pain started last night. Complaint chest pain shortness of breath. Exam: Heart irregular regular. Lungs coarse breath sounds. MDM: EKG shows irregular rhythm which appears to be atrial fibrillation. There is no history of atrial fibrillation in the past. Will obtain chest x-ray blood work D-dimer will get COVID RSV. I do not believe she is septic. She is tachycardic but it appears that she has new onset atrial fibrillation. At this time I do not believe she requires beta-neto but appears that the atrial fibrillation is new. She does not have any infectious complaints. Chest x-ray shows what I believe is likely atelectasis do not believe it is infiltrate. Her troponin is elevated at 82. I will give her aspirin and Lovenox. She has a heart score of 7. Through shared decision-making she agrees to this plan. Communicated with the hospitalist who agrees to admit. I do not believe this is PE. Age-adjusted D-dimer is normal. Further details please see TIMBO note. Critical care time: I personally saw the patient and independently provided least 35 minutes of non-concurrent critical care out of the total shared critical care time provided. Independent of any separately billable procedures. Please note TIMBO was reviewing records from the [facility] and it does appear that she has had atrial fibrillation in the past. Patient was unaware but that is certainly not unreasonable for her not to know. She is currently not anticoagulated. I still believe with her elevated troponin she does need to be admitted given that she was having chest pain. Via secure chat I did update the hospitalist. Comment: Please note this report has been produced using speech recognition software and may contain errors related to that system including errors in grammar, punctuation, and spelling, as well as words and phrases that may be inappropriate. If there is any questions or concerns please feel free to contact the dictating provider for clarification. Ag Meng MD 10/17/24 1218 Ag Meng MD 10/17/24 1319 [facility] 10-17-2024 Physician Emergency department Note EMERGENCY DEPARTMENT ENCOUNTER Pt Name: Sommer Friedman Birthdate 1940 Date of evaluation: 10/17/2024 ED Provider: Juno Velez PA-C CHIEF COMPLAINT Chief Complaint Patient presents with Chest Pain Patient brought in by EMS from [facility] for chest pain that started last night. Per SNF patient was complaining of chest pain and SOB starting last night. They that is was due to patient being anxious. The nurse states that she was still having the complaints today so she called to have the patient brought in. Patient denies complaints now. EMS states Chest pain resolved during transport Patient is A&Ox3 HISTORY OF PRESENT ILLNESS (Location/Symptom, Timing/Onset, Context/Setting, Quality, Duration, Modifying Factors, Severity) Note limiting factors. I wore appropriate PPE for the entirety of this encounter. HPI Sommer Friedman is a 84 y.o. female who presents to the emergency department with chest pain occurring this morning, stays at [facility], says and route to hospital pain resolved. Currently not feeling particularly ill not having any pain anywhere. Denies any chest pain, shortness of breath, cough, fever, nausea, vomiting, abdominal pain, extremity swelling. Denies recent sick contacts. Not clear about her own medical history. Nursing Notes were reviewed. Limitations to history: None Outside historians: EMS REVIEW OF SYSTEMS Review of Systems 8 systems reviewed, positives and pertinent negatives as per HPI. All other systems were reviewed and are negative. PAST MEDICAL HISTORY History reviewed. No pertinent past medical history. SURGICAL HISTORY History reviewed. No pertinent surgical history. CURRENT MEDICATIONS Previous Medications BIOTIN 5 MG CAPSULE Take 5 mg by mouth daily. BUSPIRONE (BUSPAR) 5 MG TABLET Take 5 mg by mouth 2 times daily. CALCIUM CARBONATE (TUMS) 500 MG CHEWABLE TABLET Chew 500 mg as needed for indigestion or heartburn. CARBOXYMETHYLCELLULOSE (REFRESH PLUS) 0.5 % OPHTHALMIC SOLUTION Administer 2 drops into both eyes in the morning and 2 drops in the evening. ESCITALOPRAM (LEXAPRO) 10 MG TABLET Take 15 mg by mouth daily. FLUTICASONE-SALMETEROL (ADVAIR DISKUS) 500-50 MCG/ACT AEROSOL POWDER Inhale 1 puff in the morning and 1 puff in the evening. FUROSEMIDE (LASIX) 20 MG TABLET Take 20 mg by mouth daily. LEVOTHYROXINE (TIROSINT) 88 MCG CAPSULE Take 88 mcg by mouth every morning (before breakfast). LOSARTAN (COZAAR) 50 MG TABLET Take 50 mg by mouth 2 times daily. MELATONIN 3 MG TABLET DISPERSIBLE Take 9 mg by mouth before bedtime. POLYETHYLENE GLYCOL, PEG, 3350 (MIRALAX) 17 G PACKET Take 17 g by mouth Once. POTASSIUM CHLORIDE CR (KLOR-CON M20) 20 MEQ ER TABLET Take 60 mEq by mouth daily. Do not crush or chew. SENNA-DOCUSATE (JUANIS-COLACE) 8.6-50 MG TABLET Take 1 tablet by mouth daily. TIZANIDINE (ZANAFLEX) 4 MG TABLET Take 4 mg by mouth in the morning and 4 mg at noon and 4 mg in the evening. TRAZODONE (DESYREL) 50 MG TABLET Take 25 mg by mouth Nightly. ALLERGIES Gabapentin and Propoxyphene FAMILY HISTORY No family history on file. SOCIAL HISTORY Social History Socioeconomic History Marital status: Tobacco Use Smoking status: Unknown Vaping Use Vaping status: Unknown Substance and Sexual Activity Alcohol use: Not Currently Drug use: [employer]er [email or web address] Intimate Partner Violence: Patient Unable To Answer (04/11/2024) Humiliation, Afraid, Rape, and Kick questionnaire Fear of Current or Ex-Partner: Patient unable to answer Emotionally Abused: Patient unable to answer Physically Abused: Patient unable to answer Sexually Abused: Patient unable to answer SCREENINGS Stacy Coma Scale Best Eye Response: Spontaneous Best Verbal Response: Oriented Best Motor Response: Follows commands Stacy Coma Scale Score: 15 PHYSICAL EXAM ED Triage Vitals [10/17/24 1058] Temp Heart Rate Resp BP 36.6 C (97.9 F) (!) 118 (!) 10 (!) 155/97 SpO2 Temp Source Heart Rate Source Patient Position 94 % Oral -- -- BP Location FiO2 (%) -- -- Physical Exam Constitutional: Comments: Elderly female, not overtly distressed cooperative. HENT: Head: Normocephalic and atraumatic. Cardiovascular: Rate and Rhythm: Tachycardia present. Rhythm irregular. Heart sounds: Normal heart sounds. Pulmonary: Effort: Pulmonary effort is normal. Breath sounds: Normal breath sounds and air entry. No decreased breath sounds, wheezing, rhonchi or rales. Abdominal: General: Abdomen is flat. Bowel sounds are normal. Palpations: Abdomen is soft. Comments: Patient winces somewhat when pressing over her belly however it is soft without palpable mass, no nata peritonitis, audible bowel sounds. Musculoskeletal: Cervical back: Normal range of motion. Right lower leg: No edema. Left lower leg: No edema. Skin: General: Skin is warm. Neurological: Mental Status: She is alert. DIAGNOSTIC RESULTS RADIOLOGY (Per Emergency Physician): Interpretation per the Radiologist below, if available at the time of this note: XR chest 1 view Final Result Mild left basilar atelectasis or infiltrates. Report Dictated on Electronically Signed By: Bakari Mcdonnell DR Electronically Signed Date/Time: 10/17/2024 11:35 AM EST LABS: Labs Reviewed BASIC METABOLIC PANEL - Abnormal Result Value SODIUM 137 POTASSIUM 4.2 CHLORIDE 109 (*) CARBON DIOXIDE 19 (*) UREA NITROGEN 17 CREATININE 0.87 GLUCOSE 114 CALCIUM 9.2 ANION GAP 9 eGFR 66.6 CBC WITH AUTO DIFFERENTIAL - Abnormal Auto WBC 6.8 RBC 3.78 (*) Hemoglobin 12.4 Hematocrit 37.1 MCV 98.1 MCH 32.8 MCHC 33.4 RDW 13.2 Platelets 303 MPV 8.9 (*) nRBC 0.0 Neutrophils Relative 62.2 Lymphocytes Relative 24.7 Monocytes Relative 10.5 Eosinophils Relative 1.6 Basophils Relative 0.7 Immature Grans % 0.3 Neutrophils Absolute 4.2 Lymphocytes Absolute 1.7 Monocytes Absolute 0.7 Eosinophils Absolute 0.1 Basophils Absolute 0.1 Immature Grans Absolute 0.0 HIGH SENSITIVITY TROPONIN, SERIAL BASELINE - Abnormal Troponin HS Serial Baseline 82 (*) D-DIMER,QUANTITATIVE - Abnormal D-DIMER, INNOVANCE 0.55 (*) Narrative: Innovance D-Dimer values of <0.50 mg/L FEU can be used in combination with a pre-test probability model (e.g. Well's) to exclude pulmonary embolism (PE) disease, as well as an aid in the diagnosis of deep vein thrombosis (DVT). HEPATIC FUNCTION PANEL - Abnormal BILIRUBIN, TOTAL 1.0 BILIRUBIN, DIRECT 0.4 ALKALINE PHOSPHATASE 70 AST (SGOT) 30 ALT 14 ALBUMIN 3.3 (*) TOTAL PROTEIN 6.6 COMPLETE URINALYSIS - Abnormal Color, Urine Yellow Clarity, Urine Extra Turbid (*) pH, Urine 8.0 Leukocytes, Urine 75 (*) Nitrite, Urine Negative Protein, Urine 30 (*) Glucose, Urine Normal Bilirubin, Urine Negative Ketones, Urine Negative Urobilinogen, Urine Normal Blood, Urine 0.03 (*) RBC, Urine 3-5 (*) WBC, Urine 11-25 (*) Squamous Epithelial, Urine 0-2 Bacteria, Urine Many (*) Triple Phosphate Crystals, Urine Moderate (*) SPECIFIC GRAVITY OF URINE (NUMERIC) 1.014 SARS-COV-2, FLU A/B, AND RSV COMBO - Normal SARS-CoV-2 Not Detected Respiratory Syncytial Virus Not Detected Influenza A Not Detected Influenza B Not Detected Narrative: Methodology: real-time, RT-PCR The SARS-CoV-2, Flu A/B, and RSV Combo assay is intended for in vitro diagnostic use under the FDA Emergency Use Authorization (EUA). This test has not been FDA cleared or approved. In compliance with this authorization, please visit www.fda.gov/media/031949/download or www.fda.gov/media/145693/download to access the applicable information sheets. LIPASE - Normal LIPASE 9 URINE CULTURE COMPLETE URINALYSIS WITH REFLEX TO CULTURE Narrative: The following orders were created for panel order Complete Urinalysis with reflex to Culture. Procedure Abnormality Status --------- ------ Complete Urinalysis[[id number]] Abnormal Final result Please view results for these tests on the individual orders. HIGH SENSITIVITY TROPONIN, SERIAL, SECOND TEST All other labs were within normal range or not returned as of this dictation. EMERGENCY DEPARTMENT COURSE and DIFFERENTIAL DIAGNOSIS/MDM: Vitals: Vitals: 10/17/24 1123 10/17/24 1233 10/17/24 1234 10/17/24 1236 BP: (!) 149/137 (!) 165/103 Pulse: 107 (!) 121 (!) 122 108 Resp: Temp: TempSrc: SpO2: 94% 98% 94% Weight: Height: Medications enoxaparin (Lovenox) syringe 60 mg (60 mg SubCUTAneous Given 10/17/24 1316) aspirin chewable tablet 324 mg (324 mg Oral Given 10/17/24 1316) metoprolol tartrate (Lopressor) tablet 50 mg (50 mg Oral Given 10/17/24 1316) ED care was supervised by Dr. Meng who independently examined and evaluated the patient. Please see their attestation note for further details. In brief, Sommer Friedman is a 84 y.o. female who presented to the emergency department with transient episode of chest pain. Nursing notes and medical records reviewed, per review of external records from [facility] cardiology, office visit 08/23/2024 there is a listed history of atrial fibrillation appears previously on sotalol and diltiazem. Differential considerations included A-fib with RVR, considered underlying precipitant for this such as PE, underlying dehydration or infection. She is not describing any infectious symptoms. Considered atypical ACS. Initial medical management includes telemetry monitoring. On initial eval heart rate is low 100s, considered metoprolol or diltiazem, will hold for now, may consider later if heart rates are elevated, anticipate admission given mild RVR. Initial workup includes EKG, screening labs, D-dimer, troponin, chest x-ray. Other workup considerations included CTA chest if D-dimer is elevated. Upon reassessment patient stable, heart rate low 100s, still appears to be atrial fibrillation. Lab workup results reviewed, EKG showed atrial fibrillation rate 111 bpm with old anterior infarct, nonspecific lateral T abnormality and minimal ST elevation laterally, prior EKG from March 2024 was sinus bradycardia. CBC shows no significant leukocytosis or anemia. Metabolic panel shows serum bicarb slightly low at 19, normal anion gap, normal renal function, chloride 109 otherwise normal electrolytes. High-sensitivity troponin elevated at 82 suspect secondary to rate due to A-fib. D-dimer age-adjusted negative at 0.55. Lipase normal at 9. Viral panel negative. Single view chest x-ray radiology shows mild left basilar atelectasis or infiltrates. Patient not describing any cough, is not short of breath, is afebrile with normal WBC, less suspicion for pneumonia currently. Chronic conditions contributing to patients presentation include atrial fibrillation. I have low suspiscion for underlying PE in setting of age-adjusted negative D-dimer. Less suspicion for underlying sepsis given lack of clear infectious source, no SIRS criteria other than tachycardia. Social determinants to care: None identified Discussed results with patient recommended admission for atrial fibrillation with mild RVR and elevated troponin, further cardiac evaluation she was agreeable. Discussed case with admitting hospitalist Dr. Trent and Dr. Forte, agreed with plans for hospitalization, admitted to telemetry in stable condition. PROCEDURES: Unless otherwise noted below, none Procedures FINAL IMPRESSION 1. NSTEMI (non-ST elevated myocardial infarction) (HCC) 2. Atrial fibrillation with RVR (HCC) DISPOSITION Admit 10/17/2024 12:19:00 PM PATIENT REFERRED TO: No follow-up provider specified. DISCHARGE MEDICATIONS: New Prescriptions No medications on file (Comment: Please note this report has been produced using speech recognition software and may contain errors related to that system including errors in grammar, punctuation, and spelling, as well as words and phrases that may be inappropriate. If there are any questions or concerns please feel free to contact the dictating provider for clarification.) Juno Velez PA-C (electronically signed) Emergency Medicine Provider Juno Velez PA-C 10/17/24 1325 Juno Velez PA-C 10/17/24 1325 Cosigned by Ag Meng MD at 10/17/2024 2:06 PM EST [facility] 08-23-2024 History of Present illness Narrative Images from the original note were not included. [facility] [place] SECTION OF REGIONAL CARDIOLOGY OUTPATIENT VISIT DATE 08/23/2024 OUTPATIENT VISIT TYPE NEW Patient is being seen at the request of Self for elevated BP. HISTORY OF PRESENT ILLNESS: Ms. Friedman is a 84 year old female, hx of atrial fibrillation, HLD, Hypertension, thyroid disease, COPD, anxiety, bradycardia presents for elevated BP. Accompanied by her caregiver. She resides [facility] of [facility] ([phone]). Her POA is her son Parris Friedman [phone]. She denies chest pain, SOB, palpitations, orthopnea, PND, leg swelling, lightheadedness, syncope. She feels well and states that she us unsure why she needs to see cardiology and does not have any cardiac concerns/ symptoms. EKG: NSR HR 74, biphasic appearing T waves in V4-V6, QTc 481, PACs. She had presented to [facility] ER on 04/10/2024 with lower back pain. Reported fall approximately 1.5 weeks prior to presentation. Reportedly heart rates were in the 40s. She was diagnosed with L1 burst fracture. Her sotalol and diltiazem were held with improvement in heart rates. Cardiology was consulted. Social History Tobacco Use Smoking status: Former Types: Cigarettes Smokeless tobacco: Never Vaping Use Vaping status: Never Used Substance Use Topics Alcohol use: Not Currently Drug use: Never No family history on file. ALLERGIES Allergen Reactions Gabapentin Intolerance Propoxyphene Intolerance CURRENT MEDICATIONS: fluticasone-salmeterol (ADVAIR) 500-50 mcg/dose dsdv Inhale 1 Puff as instructed. donepezil (ARICEPT) 10 mg tablet ibuprofen (ADVIL) 200 mg tablet Take 200 mg by mouth every 6 hours as needed. acetaminophen (TYLENOL) 325 mg cap Take by mouth. apixaban (ELIQUIS) 2.5 mg tab(s) Take by mouth two times a day. escitalopram oxalate (LEXAPRO) 20 mg tablet Take 20 mg by mouth once daily. lanolin alcohol/mo/w.pet/ceres (EUCERIN TOPICAL) Apply to affected area. furosemide (LASIX) 20 mg tablet Take 20 mg by mouth once daily. levothyroxine 88 mcg cap Take 88 mcg by mouth daily before breakfast. losartan (COZAAR) 50 mg tablet Take 50 mg by mouth once daily. melatonin 3 mg capsules Take by mouth. polyethylene glycol 3350 (MIRALAX) 17 gram packet Take 17 g by mouth once daily. Dissolve dose in 4 - 8 ounces of liquid and take as directed. multivit-min/iron/folic acid/K (MULTI-DAY PLUS MINERALS ORAL) Take by mouth. calcium carbonate/vitamin D3 (OYSTER SHELL + D3 ORAL) Take by mouth. potassium chloride (KLOR-CON) 20 mEq packet Take by mouth once daily. sennosides/docusate sodium (SENNA PLUS ORAL) Take by mouth. calcium carbonate (TUMS ORAL) Take by mouth. PHYSICAL EXAMINATION: BP 160/80 Pulse 74 Ht 162.6 cm (5' 4) Wt 57.6 kg (126 lb 15.8 oz) SpO2 97% BMI 21.80 kg/m General: Appears comfortable in no apparent cardiopulmonary distress Neck: No JVD, no bruits CVS: S1, S2, No m/r/g Chest: CTAB Abd: Soft, nontender, no masses, BS present Ext: No pedal edema, pedal pulses 2+ bilaterally Neuro: No focal neurological deficits ASSESSMENT/PLAN: 1. Hypertension, unspecified type - ICD9: 401.9, ICD10: I10 - She states that her BP are well controlled at her place of residence. - Will contact her nurse at her residence. Atrial fibrillation Stable - On Eliquis 2.5 mg p.o. twice daily based on age and weight - Sotalol and diltiazem were held due to bradycardia. - She is declining echocardiogram Abnormal EKG Noted to have QTc 481 and biphasic appearing T waves anterolaterally -She is declining ischemic workup including stress testing. She is aware of the possible cardiac risks of not having testing done in the event that she does have significant cardiac and coronary artery disease - Declining further cardiac testing - Avoid QT prolonging agents -She states that she will inform her nursing if she wishes a follow-up visit with cardiology. - She states that she is ok with us contacting her nurse to provide update on today's visit. I spoke to the retail interior designer at her residence who stated that her nurse was unavailable. I left a message for her nurse to contact me via telephone to update her on the visit. Joana Wilson MD, [facility] Non invasive and Sports Director Check documented in this encounter [facility] 08-23-2024 Note HNO ID: [id number] Author: JOANA WILSON MD Service: ? Author Type: Physician Type: Progress Notes Filed: 08/23/2024 16:35 Note Text: [facility] [place] SECTION OF REGIONAL CARDIOLOGY OUTPATIENT VISIT DATE 08/23/2024 OUTPATIENT VISIT TYPE NEW Patient is being seen at the request of Self for elevated BP. HISTORY OF PRESENT ILLNESS: Ms. Friedman is a 84 year old female, hx of atrial fibrillation, HLD, Hypertension, thyroid disease, COPD, anxiety, bradycardia presents for elevated BP. Accompanied by her caregiver. She resides [facility] ([phone]). Her POA is her son Parris Friedman [phone]. She denies chest pain, SOB, palpitations, orthopnea, PND, leg swelling, lightheadedness, syncope. She feels well and states that she us unsure why she needs to see cardiology and does not have any cardiac concerns/ symptoms. EKG: NSR HR 74, biphasic appearing T waves in V4-V6, QTc 481, PACs. She had presented to [facility] ER on 04/10/2024 with lower back pain. Reported fall approximately 1.5 weeks prior to presentation. Reportedly heart rates were in the 40s. She was diagnosed with L1 burst fracture. Her sotalol and diltiazem were held with improvement in heart rates. Cardiology was consulted. Social History Tobacco Use Smoking status: Former Types: Cigarettes Smokeless tobacco: Never Vaping Use Vaping status: Never Used Substance Use Topics Alcohol use: Not Currently Drug use: Never No family history on file. ALLERGIES Allergen Reactions Gabapentin Intolerance Propoxyphene Intolerance CURRENT MEDICATIONS: fluticasone-salmeterol (ADVAIR) 500-50 mcg/dose dsdv Inhale 1 Puff as instructed. donepezil (ARICEPT) 10 mg tablet ibuprofen (ADVIL) 200 mg tablet Take 200 mg by mouth every 6 hours as needed. acetaminophen (TYLENOL) 325 mg cap Take by mouth. apixaban (ELIQUIS) 2.5 mg tab(s) Take by mouth two times a day. escitalopram oxalate (LEXAPRO) 20 mg tablet Take 20 mg by mouth once daily. lanolin alcohol/mo/w.pet/ceres (EUCERIN TOPICAL) Apply to affected area. furosemide (LASIX) 20 mg tablet Take 20 mg by mouth once daily. levothyroxine 88 mcg cap Take 88 mcg by mouth daily before breakfast. losartan (COZAAR) 50 mg tablet Take 50 mg by mouth once daily. melatonin 3 mg capsules Take by mouth. polyethylene glycol 3350 (MIRALAX) 17 gram packet Take 17 g by mouth once daily. Dissolve dose in 4 - 8 ounces of liquid and take as directed. multivit-min/iron/folic acid/K (MULTI-DAY PLUS MINERALS ORAL) Take by mouth. calcium carbonate/vitamin D3 (OYSTER SHELL + D3 ORAL) Take by mouth. potassium chloride (KLOR-CON) 20 mEq packet Take by mouth once daily. sennosides/docusate sodium (SENNA PLUS ORAL) Take by mouth. calcium carbonate (TUMS ORAL) Take by mouth. PHYSICAL EXAMINATION: BP 160/80 Pulse 74 Ht 162.6 cm (5' 4) Wt 57.6 kg (126 lb 15.8 oz) SpO2 97% BMI 21.80 kg/m? General: Appears comfortable in no apparent cardiopulmonary distress Neck: No JVD, no bruits CVS: S1, S2, No m/r/g Chest: CTAB Abd: Soft, nontender, no masses, BS present Ext: No pedal edema, pedal pulses 2+ bilaterally Neuro: No focal neurological deficits ASSESSMENT/PLAN: 1. Hypertension, unspecified type - ICD9: 401.9, ICD10: I10 - She states that her BP are well controlled at her place of residence. - Will contact her nurse at her residence. Atrial fibrillation Stable - On Eliquis 2.5 mg p.o. twice daily based on age and weight - Sotalol and diltiazem were held due to bradycardia. - She is declining echocardiogram Abnormal EKG Noted to have QTc 481 and biphasic appearing T waves anterolaterally -She is declining ischemic workup including stress testing. She is aware of the possible cardiac risks of not having testing done in the event that she does have significant cardiac and coronary artery disease - Declining further cardiac testing - Avoid QT prolonging agents -She states that she will inform her nursing if she wishes a follow-up visit with cardiology. - She states that she is ok with us contacting her nurse to provide update on today's visit. I spoke to the retail interior designer at her residence who stated that her nurse was unavailable. I left a message for her nurse to contact me via telephone to update her on the visit. Joana Wilson MD, [facility] Non invasive and Sports Director Check [facility] 04-12-2024 Note [facility] 04-12-2024 Note Formatting of this n ote might be different from the original. Called son Parris to review discharge time/plan. He is agreeable and wants to talk with Dr. Shannon re: diagnosis.[facility] has notified pt of this request. [facility] 04-12-2024 Note Formatting of this n ote might be different from the original. Called kaushal Huitron to review discharge time/plan. He is agreeable and wants to talk with Dr. Shannon re: diagnosis.[facility] has notified pt of this request. [facility] 04-12-2024 Miscellaneous Notes Called kaushal Huitron to review discharge time/plan. He is agreeable and wants to talk with Dr. Shannon re: diagnosis.[facility] has notified pt of this request. MAR & Discharge med list transmitted to [facility] via Careport per TCC request. Pt passed void trial 04/11. Back brace from [facility] is at pt bedside, TCC reminded RN this needs to with pt at DC. Pt is from [facility], pt is LTC LOC, no auth needed, pt is bedhold, no covid needed. Pt is able to return when ready. TCC spoke to attending, pt is ready for DC today. TCC messaged attending to place DC order, and complete WONG, SW to set up transport, and RN to notify of DC. TCC updated pt at bedside, pt is agreeable to plan. TCC spoke to kaushal Huitron via phone call to notify, son is agreeable as well. TCC updated LTC via careport. Discharge order placed. WONG completed. SW set up transport for 3:30 pm today. SW will notify RN, typing secretary, son, and facility. TCC tasked BOWLING BALL GRADER to transmit discharge orders to LTC. Facility was placed in follow up provider section. Discharge date updated and milestones completed. Pt will be transported to [facility] via ambulance transport today at 3:30 pm. Problem: Knowledge Deficit Goal: Patient/family/caregiver demonstrates understanding of disease process, treatment plan, medications, and discharge instructions Outcome: Adequate for Discharge Problem: Potential for Compromised Skin Integrity Goal: Skin Integrity is Maintained or Improved Outcome: Adequate for Discharge Goal: Nutritional status is improving Outcome: Adequate for Discharge Problem: Urinary Incontinence Goal: Perineal skin integrity is maintained or improved Outcome: Adequate for Discharge The patient is Moderately Stable - Low risk of patient condition declining or worsening The patient's goals for the shift include pain control The clinical goals for the shift include pain control Arranged transport to [facility] via [facility] stretcher with pickup at 3:30pm. Notified snf of transport time via Careport message; reviewed time with RN, hospital unit clerk and TCC. Will update son. Care Managment Initial Assessment Date: 04/11/2024 Patient Name: Sommer Friedman : 1940 Patient Information Source of Information: Patient [place] Name/Contact Information: Parris robertson [phone] Cognition/Language: Confused at baseline Permission given to speak with patient in store representative/caregiver as indicated: Yes Confirmation of Payer with patient/family: Yes Payer Name: 1. [facility] [employer] plan medicare 2. [facility] medicaid : No Confirmation of Primary Care Physician: Confirmed PCP Name: Dr. Juarez Seen in last 2 years?: Yes Primary Caregiver: Other (Comment) (facility staff) If assistance needed, confirmed caregiver ready, willing and able to care for patient at discharge: Confirmed with: Living Arrangements Current Residence: Number of Floors Number of Entry Steps: Bed/Bath Levels: Facility: [facility] Facility Name: [facility] Plan to Return: Yes Lives with: Alone Support Systems: Children, Family members Activities of Daily Living Ambulation: Assistance Bathing/Dressing: Assistance Elimination/Continence/Toileting: Assistance Feeding: Independent Who Assists with Activities of Daily Living: DME and LTC staff Instrumental Activities of Daily Living Prescription Coverage: Yes Pharmacy Used: LTC facility provides Medication Management: Medication dispenser Who assists with medication securing and setup?: LTC Transportation/Shopping: Assistance Provider Transportation/Shopping Assistance Provider Name: ambulance transport or son transport to doctors appointmetns Transportation Mode: Car, Senior/disability transport service Needs Assistance with Transportation at Discharge: Yes, Comments (ambulance transport) Meal Preparation: Assistance Provider Meal Prep Assistance Provider Name: LTC Laundry/Cleaning: Assistance Provider Laundry/Cleaning Assistance Provider Name: LTC Finances/Bill Paying: Assistance Provider Finances/Bill Payer Assistance Provider Name: kaushal Huitron Communication: Independent Types of Care Services/Equipment Utilized Care Services: Dialysis Type: NA Durable Medical Equipment: Walker, Wheelchair (standard or power) DME Provider: purchased by son Patient's Goal/Discharge Plan Patient expects to be discharged to: return to [facility] Discharge Planning Actions: Continue to follow, Alf Facility referral indicated Yulan of choice: Yulan of choice discussed Patient's Choice Rights and [employer] and Collaborative Relationships Disclosed as Indicated for Post-Acute Care: Yes Interdisciplinary Team Engagement: PT/OT Social Work Referral for: Transportation Assistance Additional Information: Pt is A&O times 2 at baseline. Dementia. TCC called and spoke to pt's son Parris to complete IA. Introduced self and role. Pt admitted with low back pain. Pt has jones catheter, per son she did not have jones at facility. Pt may have had jones inserted in ER. Orthopedics consulted, per note no surgery needed, weight bearing as tolerated, wear back brace when up for comfort. Social Work Assistant consulted. PT and OT evals ordered, pending. Pt's son parris is agreeable for pt to return to [facility]. Pt has been there for almost 1 year. [facility] tasked [facility] to make a return referral. Plan is return to [facility] LT when pt is ready with ambulance transport. Son is agreeable to this plan and has no questions at this time. TCC will follow. Ebony Phipps RN documented in this encounter [facility] 04-12-2024 Note Formatting of this n ote might be different from the original. MAR & Discharge med list transmitted to [facility] via Careport per TCC request. [facility] 04-12-2024 Note Formatting of this n ote might be different from the original. MAR & Discharge med list transmitted to [facility] via Careport per TCC request. Electronically signed by [facility] William Cates [facility] 04-12-2024 Note Formatting of this n ote might be different from the original. Pt passed void trial 04/11. Back brace from [facility] is at pt bedside, TCC reminded RN this needs to with pt at [place]. Pt is from [facility], pt is LTC LOC, no auth needed, pt is bedhold, no covid needed. Pt is able to return when ready. TCC spoke to attending, pt is ready for DC today. TCC messaged attending to place DC order, and complete WONG, SW to set up transport, and RN to notify of DC. TCC updated pt at bedside, pt is agreeable to plan. TCC spoke to son Parris via phone call to notify, son is agreeable as well. TCC updated LTC via careport. Discharge order placed. WONG completed. SW set up transport for 3:30 pm today. SW will notify RN, typing secretary, son, and facility. TCC tasked [employer] to transmit discharge orders to LTC. Facility was placed in follow up provider section. Discharge date updated and milestones completed. Pt will be transported to [facility] via ambulance transport today at 3:30 pm. [facility] 04-12-2024 Note Formatting of this n ote might be different from the original. Pt passed void trial 04/11. Back brace from [facility] is at pt bedside, TCC reminded RN this needs to with pt at [place]. Pt is from [facility], pt is LTC LOC, no auth needed, pt is bedhold, no covid needed. Pt is able to return when ready. TCC spoke to attending, pt is ready for DC today. TCC messaged attending to place DC order, and complete WONG, SW to set up transport, and RN to notify of DC. TCC updated pt at bedside, pt is agreeable to plan. TCC spoke to son Parris via phone call to notify, son is agreeable as well. [facility] Discharge order placed. WONG completed. SW set up transport for 3:30 pm today. SW will notify RN, typing secretary, son, and facility. TCC tasked [employer] to transmit discharge orders to LTC. Facility was placed in follow up provider section. Discharge date updated and milestones completed. Pt will be transported to [facility] via ambulance transport today at 3:30 pm. T [facility] 04-12-2024 Nurse Note Report called to Joan Vyas. [facility] 04-12-2024 Nurse Note Report called to Joan Vyas. Attempted to call report to [facility]. The nurse was unavailable. Message left with typing secretary. Patient noted to be diaphoretic, clammy, and stated she felt woozy. BGT 103. BP 100/47 map 65. Pulse 51. Temp 98.2 oral and resps even and unlabored. USACS paged and lactic + 1000ml NS bolus ordered. Jones cath discontinued. 300 cc clear yellow urine in bag. Aisha well. documented in this encounter [facility] 04-12-2024 Nurse Note Attempted to call report to [facility]. The nurse was unavailable. Message left with typing secretary. [facility] 04-12-2024 Plan of care note Problem: Knowledge Deficit Goal: Patient/family/caregiver demonstrates understanding of disease process, treatment plan, medications, and discharge instructions Outcome: Adequate for Discharge Problem: Potential for Compromised Skin Integrity Goal: Skin Integrity is Maintained or Improved Outcome: Adequate for Discharge Goal: Nutritional status is improving Outcome: Adequate for Discharge Problem: Urinary Incontinence Goal: Perineal skin integrity is maintained or improved Outcome: Adequate for Discharge The patient is Moderately Stable - Low risk of patient condition declining or worsening The patient's goals for the shift include pain control The clinical goals for the shift include pain control [facility] 04-12-2024 Note Formatting of this n ote might be different from the original. Arranged transport to [facility] via [facility] with pickup at 3:30pm. Notified snf of transport time via Careport message; reviewed time with RN, hospital unit clerk and TCC. Will update son. T [facility] 04-12-2024 Note Formatting of this n ote might be different from the original. Arranged transport to [facility] via [facility] stretcher with pickup at 3:30pm. Notified snf of transport time via Careport message; reviewed time with RN, hospital unit clerk and TCC. Will update son. T [facility] 04-12-2024 History of Present illness Narrative Hospitalist Progress Note 04/12/2024 Subjective: Admit Date: 04/10/2024 PCP: Kathi Juarez MD Room#: E5-509/E5-509 A BRIEF HOSPITAL COURSE: Patient is an 84-year-old female with history of atrial fibrillation on sotalol and Cardizem, chronic back pain, thyroid disease, cognitive Ad/dementia who presents to the emergency department from her [facility] for worsening back pain. Reported fall approximately 1.5 weeks prior. In the emergency department patient had heart rates down into the 40s. Patient underwent CT scan of the abdomen pelvis which showed a L1 burst fracture. Was transferred to [facility] for orthopedic evaluation. Interval History: 04/11 -patient doing OK, still with some back pain- explained no need for surgical intervention and will continue pain control. 04/12 -patient is doing fairly well, heart rates are improved into the 70s. Seen by EP, sotalol discontinued. Diltiazem held. Patient still with back pain, no N/V, tolerating food. Adult diet Regular 24HR INTAKE/OUTPUT: Intake/Output Summary (Last 24 hours) at 04/12/2024 1024 Last data filed at 04/12/2024 0822 Gross per 24 hour Intake 240 ml Output 720 ml Net -480 ml Past Medical History: No past medical history on file. LABS: CBC: Recent Labs 04/10/24 1450 04/11/24 0402 04/11/24 2323 WBC 8.0 8.4 8.1 RBC 4.20 4.07 3.89 HGB 13.6 13.5 12.4 HCT 40.6 39.2 37.3 MCV 96.7 96.3 95.9 RDW 12.4 12.5 12.4 PLT 273 331 249 BMP: Recent Labs 04/10/24 1450 04/11/24 0528 04/11/24 2323 NA 135 133* 130* K 4.4 4.8 3.9 CL 105 108* 106 CO2 24 19* 20* BUN 23* 20* 19* CREATININE 1.03 0.73 0.81 GLUCOSE 94 100 108* CALCIUM 9.1 9.1 9.0 ANIONGAP 6 5 4 LIVER PROFILE: Recent Labs 04/10/24 1450 AST 24 ALT 19 BILITOT 0.4 ALKPHOS 78 PROT 5.8* PT/INR: No results for input(s): PROTIME, INR in the last 72 hours. CARDIAC ENZYMES: Recent Labs 04/10/24 1450 TROPONINI <0.012 Procalcitonin: No results found for: PROCAL COVID-19 PCR: No results for input(s): COVID19 in the last 72 hours. Objective: Vitals: BP (!) 164/82 (BP Location: Left arm, Patient Position: Lying) Pulse 71 Temp 36.9 C (98.4 F) (Temporal) Resp 16 Wt 125 lb (56.7 kg) SpO2 95% Pulse Ox: SpO2 Av.9 % Min: 93 % Max: 96 % Supplemental O2: Physical Exam Constitutional: Appearance: She is not ill-appearing or toxic-appearing. Cardiovascular: Rate and Rhythm: Normal rate and regular rhythm. Pulses: Normal pulses. Heart sounds: Normal heart sounds. Pulmonary: Breath sounds: Normal breath sounds. No wheezing or rales. Abdominal: General: There is no distension. Palpations: Abdomen is soft. Tenderness: There is no abdominal tenderness. Skin: General: Skin is warm. Findings: No rash. Neurological: Mental Status: She is alert. Medications: Scheduled PRN busPIRone, 5 mg, Oral, BID escitalopram, 15 mg, Oral, Daily levothyroxine, 88 mcg, Oral, qAM AC Lidocaine, 1 patch, TransDERmal, Daily losartan, 50 mg, Oral, BID melatonin, 10 mg, Oral, Nightly senna-docusate sodium, 1 tablet, Oral, Daily tiotropium, 2 puff, Inhalation, Daily tiZANidine, 4 mg, Oral, TID traZODone, 25 mg, Oral, Nightly PRN medications: acetaminophen OR acetaminophen, albuterol, naloxone, oxyCODONE OR oxyCODONE, polyethylene glycol (PEG) 3350, prochlorperazine Continuous Assessment Acute, acute on chronic, unstable/uncontrolled chronic problems/diagnoses: Incomplete L1 burst fracture Mild to moderate spinal stenosis from T12-L1 Bradycardia with history of atrial fibrillation Stable chronic problems affecting care, new non-acute diagnoses: Atrial fibrillation Dementia Thyroid disease Anxiety Hypertension/hyperlipidemia COPD Plan As a result of the above findings & factors, the following mgmt was pursued: -Patient has been admitted to the hospital to the medical unit with orthopedic spine consultation -Continue pain control as needed. Orthopedics has evaluated the patient does not recommend any surgical intervention at this time. LSO brace for comfort as needed. PT/OT eval-anticipate discharge to facility with therapy -For bradycardia, sotalol has been intervally held, heart rates now up in the 90s. Will consult EP to evaluate for adjustment in rate control medications as patient is on Cardizem as well as sotalol at baseline. It does not appear the patient is on anticoagulation prior to admission. -> Appreciate cardiology recommendations, will discontinue sotalol at this time. She is off Cardizem currently, heart rate 71, may consider resuming low-dose Cardizem if heart rates elevate. - am labs, replace lytes prn - discussed with care coordination- plan to return to [facility] with PT/OT - delirium precautions: increase activity and limit nighttime disturbances - DVT prophylaxis: enoxaparin Advance Directive: Full Code Anticipated Discharge - Date - 0-1 days - Location - Skilled Facility - Pending the following -pain control, stabilization Extended Emergency Contact Information Primary Emergency Contact: Parris Friedman Mobile Relation: Son Secondary Emergency Contact: Jaylan Friedman Mobile Relation: Son Preferred language: Salvadorean Roll Cutter needed? No Deshawn Shannon MD Division of Hospitalist Medicine [facility] Images from the original note were not included. OCCUPATIONAL THERAPY [facility] Initial Evaluation Name/MRN: Sommer Friedman ([id number]) Evaluation Date: 04/12/2024 Date of : 1940 Admission Date: 04/10/2024 1:43 PM Age: 84 y.o. Room/Bed: E5-509/E5-509 A Discharge Recommendation: Alf Facility Assessment IMPRESSION: Pt would benefit from continued therapies to maximize potential and increase indep with ADL's and transfers. Pt is below her baseline. Recommend SNF level therapies at discharge. Admitting Diagnosis: Bradycardia S/P L1 fx Performance Deficits /Impairments: Decreased Functional Mobility, Decreased ADL status, Decreased Safety Awareness, Decreased Endurance, Decreased Balance, Decreased High Level IADLs, and Decreased Posture Prognosis: Fair Decision Making: Medium Complexity Subjective Pt in bed. Pt is pleasant and cooperative. Pt agreeable to OT. Pain: 0-10 pain scale: 8/10 Location: low back and wraps around left side to abdomen Past Medical History: No past medical history on file. Past Surgical History: No past surgical history on file. Admission Diagnosis: Patient Active Problem List Diagnosis Date Noted Low back pain without sciatica, unspecified back pain laterality, unspecified chronicity 04/10/2024 Medical Precautions: No active isolations Proper PPE donned/doffed in accordance with facility standards. Fall Risk: Eckert Fall Risk Score: 100 (High Risk) Precautions/Restrictions: Braces or Orthoses: Jewitt Brace Spine Precautions: No Bending, No Lifting, No Twisting Family/Caregiver Present: none Overall Cognitive Status: Decreased cognition noted with conversation Overall Orientation Status: Ox3 Social/Functional History Patient admitted from [facility]. Assistive Equipment: front wheeled walker and wheelchair - manual Assist with ADLs and transfers. Prior Level of Function ADL Assistance: Needs Assist Ambulation Assistance: Needs Assistance Transfer Assistance: Needs Assist Objective ADLs LE Dressing: Don brief with max assist to thread legs in to leg holes and to pull up over waist. Don Jewitt brace with mod-max assist. Upper Extremity Assessment AROM: WFL Strength: WFL Vision: wears glasses for reading and and are NOT being used during the eval Hearing: normal Bed Mobility Supine to sit: Min Assist Rolling to right: SBA, log rolling Scooting: SBA Transfers/Functional Mobility Sit to stand: Min Assist Stand to sit: Min Assist Sitting balance: SBA, Static sitting balance at EOB unsupported with SBA. Standing balance: Min Assist, Static standing balance with min assist. Functional mobility: Min Assist, Pt able to take several steps from EOB to bedside chair with min assist and verbal cues. Device(s) used: None Coordination: WFL Tone: WFL Sensation: WFL AM-PAC AM-PAC Inpatient Daily Activity Raw Score: 14 ADL Inpatient CMS G-Code Modifier: CK Plan Pt would benefit from skilled acute OT services to address Balance Training, Self-Care/ADL Training, Functional Mobility Training, Endurance Training, Safety Education and Training, and Cognitive/Perceptual Training. Frequency: 3x/week for 4 weeks Barriers: Impaired balance, Decreased endurance, Limited safety awareness, and Cognitive deficit Safety/Education Safety Safety Devices in place: All fall risk precautions in place, call light within reach, left in chair, gait belt, patient at risk for falls, and no alarms engaged upon entry Restraints: No Education Education Given To: patient Education Provided: OT Role, Plan of Care, ADL Adaptive Strategies, and Transfer Training Education Method: Verbal Barriers to Learning: Cognition Education Outcome: Continued Education Needed Goals Patient Stated Goal: To have less pain. Encounter Problems Encounter Problems (Active) Balance Static standing balance during unilateral UE task x 1-3 mins with supervision. Start: 04/12/24 Expected End: 05/10/24 Dressings Lower Extremities LE dressing with/without use of AE with supervision. Start: 08/23/24 Expected End: 05/10/24 Transfers Toilet transfer with supervision. Start: 04/12/24 Expected End: 05/10/24 Therapy Time Individual Co-treatment Time In 0916 Time Out 0940 Minutes 24 Timed Code Treatment Minutes: 15 Minutes (funct act - 1) Patient's Occupational Therapy Plan of Care supervision is transferred to a [facility] Occupational Therapist. Goals and/or treatment plan was established in collaboration with patient/family/other representatives. Sugar Roberts MS, OTR/L Nutrition rescreen completed. Chart reviewed. Patient to be monitored and followed by the diet research technician. BENNIE Pandey Images from the original note were not included. PHYSICAL THERAPY [facility] Initial Evaluation Name/MRN: Sommer Friedman ([id number]) Evaluation Date: 04/11/2024 Date of : 1940 Admission Date: 04/10/2024 1:43 PM Age: 84 y.o. Room/Bed: E5-509/E5[facility] A Discharge Recommendation: Alf Facility Equipment Needed: (tbd) Assessment IMPRESSION: The pt is admitted with low back pain without sciatica, and she will benefit from therapy for the listed impairments and to improve her overall functional capacity. The pt is currently below her prior level of function and is currently unsafe to return home. The pt is a fall risk, and SNF is recommended at discharge. Assist was needed for donning/doffing of LSO. Repeated instruction and redirection to task was needed intermittently. Pain increased with all mobility, but brace did help with management. Assistance with hygiene post BM was required. Pt has experienced a recent fall. Admitting Diagnosis: chronic low back pain without sciatica From ortho note - L1 burst fracture with mild vertebral height loss and mild to moderate bony retropulsion at T12-L1 level Prognosis: fair Performance Deficits /Impairments: Increased Pain, Decreased Functional Mobility, Decreased Strength, Decreased Endurance, Decreased Balance, and Decreased Posture Decision Making: Medium Complexity Subjective Pt in bed and agreed to PT. [employer] rep present to fit pt with LSO. Pt agreeable to brace fitting as well. Pt is unable to remember how long ago she fell. Pain: 8/10 low back Past Medical History: No past medical history on file. Past Surgical History: No past surgical history on file. Admission Diagnosis: Patient Active Problem List Diagnosis Date Noted Low back pain without sciatica, unspecified back pain laterality, unspecified chronicity 04/10/2024 Medical Precautions: No active isolations Proper PPE donned/doffed in accordance with facility standards. Fall Risk: Eckert Fall Risk Score: 30 (Medium Risk) Precautions/Restrictions: Braces or Orthoses: LSO for comfort to be worn while up Spine Precautions: No Bending, No Lifting, No Twisting and for comfort Fall risk arm band Family/Caregiver Present: none Overall Cognitive Status: Exceptions - Arousal/alertness: appropriate responses to stimuli - Following commands: follows one step commands with increased time and follows one step commands with repetition - Attention span: attends with cues to redirect and difficulty dividing attention - Memory: decreased recall of biographical information, decreased recall of recent events, and decreased short term memory - Safety judgement: decreased awareness of need for assistance and decreased awareness of need for safety - Problem solving: decreased awareness of errors - Insights: decreased awareness of deficits - Initiation: requires cues for some - Sequencing: requires cues for some Overall Orientation Status: Oriented x4 Vision: wears glasses for reading and and are NOT being used during the eval Hearing: normal Social/Functional History Patient admitted from [facility]. Assistive Equipment: front wheeled walker and wheelchair - manual Prior Level of Function ADL Assistance: Needs Assist Ambulation Assistance: Device(s) used: Front wheeled walker and Wheelchair - manual Transfer Assistance: Independent Objective Lower Extremity Assessment AROM: WFL Strength: 3/5 observed bilat LE through function, pain guarding present Sensation: WFL Balance: Balance During Session: Posture: fair Sitting - Static: Supervision Sitting - Dynamic: SBA Standing - Static: Min Assist Standing - Dynamic: Min Assist Stood at sink to wash hands with use of UE for balance with min assist and a flexed posture. Pt stood for greater than one minute. Pt able to stand with use of bilat UE and min assist while PT assisted pt with hygiene post BM. Bed Mobility: Supine to sit: Max Assist Sit to supine: Max Assist Rolling to right: Max Assist Scooting: Max Assist Log roll for spine used to manage pain Transfers Sit to stand: Max Assist Stand to sit: Max Assist Initial sit to stand from EOB without brace required mod assist of 2 to a FWW. Pt stood 3 more trials with brace on, two from EOB and one from commode with max assist from bed and mod assist from commode with use of grab bar to help pull. Ambulation Ambulation 1 Assistive device(s) used: Front wheeled walker Assist level: Min Assist Distance (ft): 55 ft total with standing rest breaks as needed Quality of gait: unsteady, assist to turn walker, flexed posture, head down, decreased step length and height and velocity, increased weight on UE, Ambulation 2 Assistive device(s) used: Front wheeled walker Assist level: Min Assist Distance (ft): 15 ft x 2 with seated break on commode Quality of gait: unsteady, assist to turn walker, flexed posture, head down, decreased step length and height and velocity, increased weight on UE Tone: WFL Upper Extremity: 3+/5 observed bilat through function, ROM observed to be WFL Outcome Measures AM-PAC How much HELP from another person do you currently need Turning from your back to your side while in a flat bed without using bedrails?: A Lot Moving from lying on your back to sitting on the side of a flat bed without using bedrails?: A Lot Moving to and from a bed to a chair (including a wheelchair)?: A Little Standing up from a chair using your arms (wheelchair or bedside chair)?: A Lot Walking in a hospital room?: A Little Stair climbing assessed?: No AM-PAC Inpatient Mobility Raw Score (No Stairs) : 12 [facility] Score: Walked 25 ft or more (i.e. walked outside of room) Plan Pt would benefit from skilled acute PT services to address Strengthening, ROM, Gait Training, Balance Training, Self-Care/ADL Training, Functional Mobility Training, Endurance Training, Safety Education and Training, and Equipment Evaluation/Education. Frequency: 2x/week for 2 weeks Barriers: Pain, Impaired balance, Decreased endurance, Confusion, Limited insight into deficits, and Long standing deficits Safety/Education Safety Safety Devices in place: call light within reach, left in bed, gait belt, no alarms engaged upon entry, and fall risk arm band Restraints: No Education Education Given To: patient Education Provided: PT Role, PT Goals, Gait Training, Plan of Care, Precautions, and Transfer Training Education Method: Verbal Barriers to Learning: Cognition Education Outcome: Verbalized Understanding and Continued Education Needed Goals Patient Stated Goal: to have less pain Encounter Problems Encounter Problems (Active) Balance Patient will maintain static standing balance for 2-3 minutes with SBA in order to demonstrate decreased risk of falling. Start: 04/11/24 Expected End: 04/25/24 Mobility Patient will ambulate 50 feet with CGA and least restrictive device in order to improve safety and independence with mobility. Start: 04/11/24 Expected End: 04/25/24 PT Misc Misc: Pt will janeth and doff her LSO with supervision level assist Start: 04/11/24 Expected End: 04/25/24 Transfers Patient will perform bed mobility with min assist in order to improve independence and prepare for out of bed mobility. Start: 04/11/24 Expected End: 04/25/24 Patient will complete functional transfer with least restrictive device with min assist in order to prepare for ambulation. Start: 04/11/24 Expected End: 04/25/24 Therapy Time Individual Co-treatment Time In 09 (one eval mod complex, one gait) Time Out 1008 Minutes 26 Timed Code Treatment Minutes: 8 Minutes Jt Hidalgo PT Patient's Physical Therapy Plan of Care supervision is transferred to a [facility] Physical Therapist. Goals and/or treatment plan was established in collaboration with patient/family/other representatives. Hospitalist Progress Note 04/11/2024 Subjective: Admit Date: 04/10/2024 PCP: Kathi Juarez MD Room#: E5-509/E5-509 A BRIEF HOSPITAL COURSE: Patient is an 84-year-old female with history of atrial fibrillation on sotalol and Cardizem, chronic back pain, thyroid disease, cognitive Ad/dementia who presents to the emergency department from her [facility] for worsening back pain. Reported fall approximately 1.5 weeks prior. In the emergency department patient had heart rates down into the 40s. Patient underwent CT scan of the abdomen pelvis which showed a L1 burst fracture. Was transferred to [facility] for orthopedic evaluation. Interval History: 04/11 -patient doing OK, still with some back pain- explained no need for surgical intervention and will continue pain control. Adult diet Regular 24HR INTAKE/OUTPUT: Intake/Output Summary (Last 24 hours) at 04/11/2024 0955 Last data filed at 04/11/2024 0714 Gross per 24 hour Intake 240 ml Output 1175 ml Net -935 ml Past Medical History: No past medical history on file. LABS: CBC: Recent Labs 04/10/24 1450 04/11/24 0402 WBC 8.0 8.4 RBC 4.20 4.07 HGB 13.6 13.5 HCT 40.6 39.2 MCV 96.7 96.3 RDW 12.4 12.5 PLT 273 331 BMP: Recent Labs 04/10/24 1450 04/11/24 0528 NA 135 133* K 4.4 4.8 CL 105 108* CO2 24 19* BUN 23* 20* CREATININE 1.03 0.73 GLUCOSE 94 100 CALCIUM 9.1 9.1 ANIONGAP 6 5 LIVER PROFILE: Recent Labs 04/10/24 1450 AST 24 ALT 19 BILITOT 0.4 ALKPHOS 78 PROT 5.8* PT/INR: No results for input(s): PROTIME, INR in the last 72 hours. CARDIAC ENZYMES: Recent Labs 04/10/24 1450 TROPONINI <0.012 Procalcitonin: No results found for: PROCAL COVID-19 PCR: No results for input(s): COVID19 in the last 72 hours. Objective: Vitals: BP (!) 176/64 (BP Location: Left arm, Patient Position: Sitting) Pulse 92 Temp 36.4 C (97.5 F) (Temporal) Resp 18 Wt 125 lb (56.7 kg) SpO2 100% Pulse Ox: SpO2 Av % Min: 95 % Max: 100 % Supplemental O2: Physical Exam Constitutional: Appearance: She is not ill-appearing or toxic-appearing. Cardiovascular: Rate and Rhythm: Normal rate and regular rhythm. Pulses: Normal pulses. Heart sounds: Normal heart sounds. Pulmonary: Breath sounds: Normal breath sounds. No wheezing or rales. Abdominal: General: There is no distension. Palpations: Abdomen is soft. Tenderness: There is no abdominal tenderness. Skin: General: Skin is warm. Findings: No rash. Neurological: Mental Status: She is alert. Medications: Scheduled PRN busPIRone, 5 mg, Oral, BID dilTIAZem, 60 mg, Oral, 2 times per day escitalopram, 15 mg, Oral, Daily levothyroxine, 88 mcg, Oral, qAM AC Lidocaine, 1 patch, TransDERmal, Daily losartan, 50 mg, Oral, BID melatonin, 10 mg, Oral, Nightly senna-docusate sodium, 1 tablet, Oral, Daily tiotropium, 2 puff, Inhalation, Daily tiZANidine, 4 mg, Oral, TID traZODone, 25 mg, Oral, Nightly PRN medications: acetaminophen OR acetaminophen, albuterol, naloxone, oxyCODONE OR oxyCODONE, polyethylene glycol (PEG) 3350, prochlorperazine Continuous Assessment Acute, acute on chronic, unstable/uncontrolled chronic problems/diagnoses: Incomplete L1 burst fracture Mild to moderate spinal stenosis from T12-L1 Bradycardia with history of atrial fibrillation Stable chronic problems affecting care, new non-acute diagnoses: Atrial fibrillation Dementia Thyroid disease Anxiety Hypertension/hyperlipidemia COPD Plan As a result of the above findings & factors, the following mgmt was pursued: -Patient has been admitted to the hospital to the medical unit with orthopedic spine consultation -Continue pain control as needed. Orthopedics has evaluated the patient does not recommend any surgical intervention at this time. LSO brace for comfort as needed. PT/OT eval- -For bradycardia, sotalol has been intervally held, heart rates now up in the 90s. Will consult EP to evaluate for adjustment in rate control medications as patient is on Cardizem as well as sotalol at baseline. It does not appear the patient is on anticoagulation prior to admission - am labs, replace lytes prn - discussed with care coordination- plan to return to [facility] with PT/OT - delirium precautions: increase activity and limit nighttime disturbances - DVT prophylaxis: enoxaparin Advance Directive: Full Code Anticipated Discharge - Date - 1-2 days - Location - Skilled Facility - Pending the following -pain control, stabilization Total time spent (which include face to face and non face to face encounters) : 51 minutes Extended Emergency Contact Information Primary Emergency Contact: Parris Friedman Mobile Relation: Son Secondary Emergency Contact: Jaylan Friedman Mobile Relation: Son Preferred language: Salvadorean Roll Cutter needed? No Deshawn Shannon MD Division of Hospitalist Medicine [facility] documented in this encounter [facility] 04-11-2024 Nurse Note Patient noted to be diaphoretic, clammy, and stated she felt woozy. BGT 103. BP 100/47 map 65. Pulse 51. Temp 98.2 oral and resps even and unlabored. USACS paged and lactic + 1000ml NS bolus ordered. [facility] 04-11-2024 Nurse Note Jones cath discontinued. 300 cc clear yellow urine in bag. Aisha well. [facility] 04-11-2024 Consult note Associated Order (s): IP CONSULT TO CARDIOLOGY [facility] [place] [facility] [place]Electrophysiology Consult Note Reason for Consult/Chief Complaint: Bradycardia Referring provider: Dr. Shannon Established sign hanger: Outside provider History of Present Illness: Sommer Friedman is a 84 y.o. female with pAF, on sotalol and diltiazem prior to admission (no anticoagulation apparently), mild dementia and hypothyroidism who presented to the ED after a fall. She is alert and oriented including the situation and can say that she was in her restroom at her facility having just urinated and was standing at the sink, noticing some lightheadedness. She subsequently leaned against the wall and fell to the ground landing on her bottom. She cannot say whether she passed out or not and she cannot recall any other preceding symptoms other than lightheadedness. She did not feel out of the ordinary after the incident, however she had back pain which was worse but chronic for her. Because of her worsening back pain, she was brought to the ED at [facility]. On presentation to the ED, she was bradycardic HR 40s with ECG showing sinus bradycardia at this rate. Troponin negative, otherwise no leukocytosis or anemia. Creatinine 1.03. On discussions with the patient's son, she resides at a memory care facility and has done so for the last 2 years since they brought her up from [place] to live closer to them and given her declining cognitive function. He says she does not see a sign hanger but cannot be sure of that. The patient also says she does not see a sign hanger. They are both unsure why she is not on anticoagulation. Attempted to contact facility but line was disconnected. Assessment/Plan pAF Presyncope -It is overall unclear for what reason the patient has been taking sotalol, however she has also been on diltiazem, both of which have likely caused her ongoing bradycardia which may have caused her presyncope and fall. She does not seem to follow with a sign hanger and is unaware of her cardiac conditions, as is her family. Is made to call facility as well. For now, sotalol is not a good medication for her especially in the setting of her advanced age and so will monitor for recurrence off this medication. Sotalol on hold. Held diltiazem as well. Mild dementia -Resides at memory care facility and is alert and oriented. Hypertension -Acceptable blood pressures while in the hospital, on losartan 50 mg daily Agree with above. On sotalol and diltiazem symptomatic bradycardia. Also concerning is her prolonged QT on the sotalol, and in setting of age, sex, use of diltiazem and bradycardia she is at increased risk of torsades. I, Jt Hernandez MD, saw and evaluated the patient. I personally obtained the sanchez and critical portions of the history and physical exam. I reviewed the chart, the fellow's documentation, and discussed the patient with the fellow. I agree with the fellow's medical decision making and have edited the note to reflect my clinical findings and my assessment and plan. Medications: busPIRone, 5 mg, Oral, BID dilTIAZem, 60 mg, Oral, 2 times per day escitalopram, 15 mg, Oral, Daily levothyroxine, 88 mcg, Oral, qAM AC Lidocaine, 1 patch, TransDERmal, Daily losartan, 50 mg, Oral, BID melatonin, 10 mg, Oral, Nightly senna-docusate sodium, 1 tablet, Oral, Daily tiotropium, 2 puff, Inhalation, Daily tiZANidine, 4 mg, Oral, TID traZODone, 25 mg, Oral, Nightly Infusion Medications: Physical Examination: Vitals: 04/11/24 0112 04/11/24 0246 04/11/24 0714 04/11/24 0757 BP: 100/78 (!) 119/41 (!) 176/64 BP Location: Left arm Left arm Patient Position: Lying Sitting Pulse: 58 50 57 92 Resp: 16 18 Temp: 36.1 C (97 F) 36.4 C (97.5 F) TempSrc: Temporal Temporal SpO2: 95% 100% Weight: Intake/Output Summary (Last 24 hours) at 04/11/2024 1010 Last data filed at 04/11/2024 0714 Gross per 24 hour Intake 240 ml Output 1175 ml Net -935 ml Wt Readings from Last 3 Encounters: 04/10/24 125 lb (56.7 kg) Physical Exam General: no distress, alert Cardiovascular: RRR, no murmurs Pulmonary: lungs clear to auscultation bilaterally Extremities: no lower extremity edema Laboratory Tests: Recent Labs 04/10/24 1450 04/11/24 0528 NA 135 133* K 4.4 4.8 CL 105 108* CO2 24 19* BUN 23* 20* CREATININE 1.03 0.73 EGFR 54.4* 82.2 Recent Labs 04/10/24 1450 CKTOTAL 29* TROPONINI <0.012 Recent Labs 04/10/24 1450 04/11/24 0402 WBC 8.0 8.4 HGB 13.6 13.5 HCT 40.6 39.2 MCV 96.7 96.3 PLT 273 331 No results found for: HGBA1C No results found for: TSH No results found for: CHOL No results found for: HDL No results found for: LDLCALC No results found for: TRIG No results found for: CHOLHDL No results found for: LDLCHOLESTER No results for input(s): BNP in the last 72 hours. No results for input(s): INR in the last 72 hours. Results from last 7 days Lab Units 08/21/24 1450 AST U/L 24 ALT U/L 19 No results found for: IRON, TIBC, FERRITIN Radiology: CXR: personally reviewed: Cardiac Tests Personally Reviewed: Last EKG 04/10/24 ECG 12-LEAD 04/10/2024 3:24 PM (Final) Impression Sinus bradycardia Left ventricular hypertrophy Anterior Q waves, possibly due to LVH Prolonged QT interval EKG per my interpretation shows a sinus bradycardia at a rate of 48 with a left axis deviation. There is J-point elevation in V2 only. There were no reciprocal changes. There is no ST elevation or ST depression otherwise. There may be LVH. Intervals are within normal limits although QT may be slightly prolonged. There is no old EKG available for comparison. Electronically Signed On 04-10-2024 15:24:13 EDT by Dakota Dempsey Signed by: Dakota Dempsey MD on 04/10/2024 3:24 PM Reports reviewed: Last Echo No results found for this or any previous visit. Last Cath No results found for this or any previous visit. Last Stress Test No results found for this or any previous visit. Last EP study No results found for this or any previous visit. No results found for: EFBP, PLVEF, LVEFPHYS, LVEF2D, EF Rob Brown MD DATE of SERVICE: 04/11/2024 [facility] [email or web address] Work Phone: 04-11-2024 Consult note Associated Order (s): IP CONSULT TO CARDIOLOGY [facility] [place] [facility] [place]Electrophysiology Consult Note Reason for Consult/Chief Complaint: Bradycardia Referring provider: Dr. Shannon Established sign hanger: Outside provider History of Present Illness: Sommer Friedman is a 84 y.o. female with pAF, on sotalol and diltiazem prior to admission (no anticoagulation apparently), mild dementia and hypothyroidism who presented to the ED after a fall. She is alert and oriented including the situation and can say that she was in her restroom at her facility having just urinated and was standing at the sink, noticing some lightheadedness. She subsequently leaned against the wall and fell to the ground landing on her bottom. She cannot say whether she passed out or not and she cannot recall any other preceding symptoms other than lightheadedness. She did not feel out of the ordinary after the incident, however she had back pain which was worse but chronic for her. Because of her worsening back pain, she was brought to the ED at [facility]. On presentation to the ED, she was bradycardic HR 40s with ECG showing sinus bradycardia at this rate. Troponin negative, otherwise no leukocytosis or anemia. Creatinine 1.03. On discussions with the patient's son, she resides at a memory [facility] and has done so for the last 2 years since they brought her up from [place] to live closer to them and given her declining cognitive function. He says she does not see a sign hanger but cannot be sure of that. The patient also says she does not see a sign hanger. They are both unsure why she is not on anticoagulation. Attempted to contact facility but line was disconnected. Assessment/Plan pAF Presyncope -It is overall unclear for what reason the patient has been taking sotalol, however she has also been on diltiazem, both of which have likely caused her ongoing bradycardia which may have caused her presyncope and fall. She does not seem to follow with a sign hanger and is unaware of her cardiac conditions, as is her family. Is made to call facility as well. For now, sotalol is not a good medication for her especially in the setting of her advanced age and so will monitor for recurrence off this medication. Sotalol on hold. Held diltiazem as well. Mild dementia -Resides at [facility] and is alert and oriented. Hypertension -Acceptable blood pressures while in the hospital, on losartan 50 mg daily Agree with above. On sotalol and diltiazem symptomatic bradycardia. Also concerning is her prolonged QT on the sotalol, and in setting of age, sex, use of diltiazem and bradycardia she is at increased risk of torsades. I, Jt Hernandez MD, saw and evaluated the patient. I personally obtained the sanchez and critical portions of the history and physical exam. I reviewed the chart, the fellow's documentation, and discussed the patient with the fellow. I agree with the fellow's medical decision making and have edited the note to reflect my clinical findings and my assessment and plan. Medications: busPIRone, 5 mg, Oral, BID dilTIAZem, 60 mg, Oral, 2 times per day escitalopram, 15 mg, Oral, Daily levothyroxine, 88 mcg, Oral, qAM AC Lidocaine, 1 patch, TransDERmal, Daily losartan, 50 mg, Oral, BID melatonin, 10 mg, Oral, Nightly senna-docusate sodium, 1 tablet, Oral, Daily tiotropium, 2 puff, Inhalation, Daily tiZANidine, 4 mg, Oral, TID traZODone, 25 mg, Oral, Nightly Infusion Medications: Physical Examination: Vitals: 04/11/24 0112 04/11/24 0246 04/11/24 0714 04/11/24 0757 BP: 100/78 (!) 119/41 (!) 176/64 BP Location: Left arm Left arm Patient Position: Lying Sitting Pulse: 58 50 57 92 Resp: 16 18 Temp: 36.1 C (97 F) 36.4 C (97.5 F) TempSrc: Temporal Temporal SpO2: 95% 100% Weight: Intake/Output Summary (Last 24 hours) at 04/11/2024 1010 Last data filed at 04/11/2024 0714 Gross per 24 hour Intake 240 ml Output 1175 ml Net -935 ml Wt Readings from Last 3 Encounters: 04/10/24 125 lb (56.7 kg) Physical Exam General: no distress, alert Cardiovascular: RRR, no murmurs Pulmonary: lungs clear to auscultation bilaterally Extremities: no lower extremity edema Laboratory Tests: Recent Labs 04/10/24 1450 04/11/24 0528 NA 135 133* K 4.4 4.8 CL 105 108* CO2 24 19* BUN 23* 20* CREATININE 1.03 0.73 EGFR 54.4* 82.2 Recent Labs 04/10/24 1450 CKTOTAL 29* TROPONINI <0.012 Recent Labs 04/10/24 1450 04/11/24 0402 WBC 8.0 8.4 HGB 13.6 13.5 HCT 40.6 39.2 MCV 96.7 96.3 PLT 273 331 No results found for: HGBA1C No results found for: TSH No results found for: CHOL No results found for: HDL No results found for: LDLCALC No results found for: TRIG No results found for: CHOLHDL No results found for: LDLCHOLESTER No results for input(s): BNP in the last 72 hours. No results for input(s): INR in the last 72 hours. Results from last 7 days Lab Units 04/10/24 1450 AST U/L 24 ALT U/L 19 No results found for: IRON, TIBC, FERRITIN Radiology: CXR: personally reviewed: Cardiac Tests Personally Reviewed: Last EKG 04/10/24 ECG 12-LEAD 04/10/2024 3:24 PM (Final) Impression Sinus bradycardia Left ventricular hypertrophy Anterior Q waves, possibly due to LVH Prolonged QT interval EKG per my interpretation shows a sinus bradycardia at a rate of 48 with a left axis deviation. There is J-point elevation in V2 only. There were no reciprocal changes. There is no ST elevation or ST depression otherwise. There may be LVH. Intervals are within normal limits although QT may be slightly prolonged. There is no old EKG available for comparison. Electronically Signed On 04-10-2024 15:24:13 EDT by Dakota Dempsey Signed by: Dakota Dempsey MD on 04/10/2024 3:24 PM Reports reviewed: Last Echo No results found for this or any previous visit. Last Cath No results found for this or any previous visit. Last Stress Test No results found for this or any previous visit. Last EP study No results found for this or any previous visit. No results found for: EFBP, PLVEF, LVEFPHYS, LVEF2D, EF Rob Brown MD DATE of SERVICE: 04/11/2024 documented in this encounter [facility] 04-11-2024 Note Formatting of this n ote might be different from the original. Care Managment Initial Assessment Date: 04/11/2024 Patient Name: Sommer Friedman : 1940 Patient Information Source of Information: Patient [place] Name/Contact Information: Parris Friedman son [phone] Cognition/Language: Confused at baseline Permission given to speak with patient in store representative/caregiver as indicated: Yes Confirmation of Payer with patient/family: Yes Payer Name: 1. [employer] plan medicare 2. [facility] medicaid [place]: No Confirmation of Primary Care Physician: Confirmed PCP Name: Dr. Juarez Seen in last 2 years?: Yes Primary Caregiver: Other (Comment) (facility staff) If assistance needed, confirmed caregiver ready, willing and able to care for patient at discharge: Confirmed with: Living Arrangements Current Residence: Number of Floors Number of Entry Steps: Bed/Bath Levels: Facility: [facility] Facility Name: [facility] Plan to Return: Yes Lives with: Alone Support Systems: Children, Family members Activities of Daily Living Ambulation: Assistance Bathing/Dressing: Assistance Elimination/Continence/Toileting: Assistance Feeding: Independent Who Assists with Activities of Daily Living: DME and LTC staff Instrumental Activities of Daily Living Prescription Coverage: Yes Pharmacy Used: LTC facility provides Medication Management: Medication dispenser Who assists with medication securing and setup?: LTC Transportation/Shopping: Assistance Provider Transportation/Shopping Assistance Provider Name: ambulance transport or son transport to [facility] Transportation Mode: Car, Senior/disability transport service Needs Assistance with Transportation at Discharge: Yes, Comments (ambulance transport) Meal Preparation: Assistance Provider Meal Prep Assistance Provider Name: LTC Laundry/Cleaning: Assistance Provider Laundry/Cleaning Assistance Provider Name: LTC Finances/Bill Paying: Assistance Provider Finances/Bill Payer Assistance Provider Name: son Parris Communication: Independent Types of Care Services/Equipment Utilized Care Services: Dialysis Type: NA Durable Medical Equipment: Walker, Wheelchair (standard or power) DME Provider: purchased by son Patient's Goal/Discharge Plan Patient expects to be discharged to: return to [facility] Discharge Planning Actions: Continue to follow, Alf Facility referral indicated [place] of choice: [place] of choice discussed Patient's Choice Rights and [employer] and Collaborative Relationships Disclosed as Indicated for Post-Acute Care: Yes Interdisciplinary Team Engagement: PT/OT Social Work Referral for: Transportation Assistance Additional Information: Pt is A&O times 2 at baseline. Dementia. TCC called and spoke to pt's son Parris to complete IA. Introduced self and role. Pt admitted with low back pain. Pt has jones catheter, per son she did not have jones at facility. Pt may have had jones inserted in ER. Orthopedics consulted, per note no surgery needed, weight bearing as tolerated, wear back brace when up for comfort. Social Work Assistant consulted. PT and OT evals ordered, pending. Pt's son parris is agreeable for pt to return to [facility]. Pt has been there for almost 1 year. TCC tasked BOWLING BALL GRADER to make a return referral. Plan is return to [facility] when pt is ready with ambulance transport. Son is agreeable to this plan and has no questions at this time. TCC will follow. Ebony Phipps RN [facility] [email or web address] 04-11-2024 Note Formatting of this n ote might be different from the original. Care Managment Initial Assessment Date: 04/11/2024 Patient Name: Sommer Friedman : 1940 Patient Information Source of Information: Patient [place] Name/Contact Information: Parris robertson [phone] Cognition/Language: Confused at baseline Permission given to speak with patient in store representative/caregiver as indicated: Yes Confirmation of Payer with patient/family: Yes Payer Name: 1. [employer] plan medicare 2. [facility] medicaid [place]: No Confirmation of Primary Care Physician: Confirmed PCP Name: Dr. Juarez Seen in last 2 years?: Yes Primary Caregiver: Other (Comment) (facility staff) If assistance needed, confirmed caregiver ready, willing and able to care for patient at discharge: Confirmed with: Living Arrangements Current Residence: Number of Floors Number of Entry Steps: Bed/Bath Levels: Facility: [facility] Facility Name: [facility] Plan to Return: Yes Lives with: Alone Support Systems: Children, Family members Activities of Daily Living Ambulation: Assistance Bathing/Dressing: Assistance Elimination/Continence/Toileting: Assistance Feeding: Independent Who Assists with Activities of Daily Living: DME and LTC staff Instrumental Activities of Daily Living Prescription Coverage: Yes Pharmacy Used: LTC facility provides Medication Management: Medication dispenser Who assists with medication securing and setup?: LTC Transportation/Shopping: Assistance Provider Transportation/Shopping Assistance Provider Name: ambulance transport or son transport to doctors appointmetns Transportation Mode: Car, Senior/disability transport service Needs Assistance with Transportation at Discharge: Yes, Comments (ambulance transport) Meal Preparation: Assistance Provider Meal Prep Assistance Provider Name: LTC Laundry/Cleaning: Assistance Provider Laundry/Cleaning Assistance Provider Name: [facility] Finances/Bill Paying: Assistance Provider Finances/Bill Payer Assistance Provider Name: kaushal Huitron Communication: Independent Types of Care Services/Equipment Utilized Care Services: Dialysis Type: NA Durable Medical Equipment: Walker, Wheelchair (standard or power) DME Provider: purchased by son Patient's Goal/Discharge Plan Patient expects to be discharged to: return to [facility] Discharge Planning Actions: Continue to follow, Alf Facility referral indicated Yulan of choice: Yulan of choice discussed Patient's Choice Rights and [employer] and Collaborative Relationships Disclosed as Indicated for Post-Acute Care: Yes Interdisciplinary Team Engagement: PT/OT Social Work Referral for: Transportation Assistance Additional Information: Pt is A&O times 2 at baseline. Dementia. TCC called and spoke to pt's son Parris to complete IA. Introduced self and role. Pt admitted with low back pain. Pt has jones catheter, per son she did not have jones at facility. Pt may have had ojnes inserted in ER. Orthopedics consulted, per note no surgery needed, weight bearing as tolerated, wear back brace when up for comfort. Social Work Assistant consulted. PT and OT evals ordered, pending. Pt's son parris is agreeable for pt to return to [facility]. Pt has been there for almost 1 year. TCC tasked BOWLING BALL GRADER to make a return referral. Plan is return to [facility] when pt is ready with ambulance transport. Son is agreeable to this plan and has no questions at this time. TCC will follow. Ebony Phipps RN [facility] 04-11-2024 Hospital Discharge instructions Ivy Chawla - 04/11/2024 12:00 AM EDT Images from the original note were not included. Orthopaedic Surgery Discharge Instructions: -Weight bearing as tolerated -Activity as tolerated, except avoid heavy lifting/pulling/otherwise strenuous activity -Wear the back brace when up and moving. Ok for activity as tolerated without the brace. Ok to take off as needed. This brace is only for comfort. If the brace is not helping ok to go without it. Skin checks around brace for signs of skin breakdown. -Follow-up outpatient with Dr. Ruvalcaba. The office contact information is provided in your paperwork. -IF you experience SEVERE worsening of pain in short period of time and/or significant numbness/weakness in extremities or new loss of bowel or bladder function please call the office or return to the emergency department -Take medications as prescribed by the hospital doctors Deshawn Shannon MD - 04/12/2024 1:31 PM EDT As tolerated with PT/OT at facility Deshwan Shannon MD - 04/12/2024 1:31 PM EDT Resume usual Vicky Maguire RN - 04/12/2024 10:10 AM EDT Images from the original note were not included. Continuity of Care Form Patient Name: Sommer Friedman : 1940 Admit date: 04/10/2024 Discharge date: 04/12/24 Code Status Order: Full Code Advance Directives: N Admitting Physician: Wolf Cook MD PCP: Kathi Juarez MD Discharging Nurse: Harriett Maguire RN Discharging Hospital Unit/Room#: E5-509/E5-509 A Discharging Unit Emergency Contact: Extended Emergency Contact Information Primary Emergency Contact: Parris Friedman Mobile Relation: Son Secondary Emergency Contact: Jaylan Friedman Mobile Relation: Son Preferred language: Salvadorean Roll Cutter needed? No Past Surgical History: No past surgical history on file. Immunization History: There is no immunization history on file for this patient. Active Problems: Medical Problems Problem List * (Principal) Low back pain without sciatica, unspecified back pain laterality, unspecified chronicity Isolation/Infection: No active isolations No active infections Nurse Assessment: Last Vital Signs: BP (!) 164/82 (BP Location: Left arm, Patient Position: Lying) Pulse 71 Temp 36.9 C (98.4 F) (Temporal) Resp 16 Wt 56.7 kg (125 lb) SpO2 95% Last documented pain score (0-10 scale): Last Weight: Wt Readings from Last 1 Encounters: 04/10/24 56.7 kg (125 lb) Mental Status: WONG Patient Mental Status: oriented and alert IV Access: WONG IV Access: None Nursing Mobility/ADLs: Walking Minimal assistance Transfer Minimal assistance Bathing Minimal assistance Dressing Minimal assistance Toileting Minimal assistance Feeding Independent Dry Sand Molder Minimal assistance Med Delivery yes Wound Care Documentation and Therapy: Elimination: Continence: Bowel: yes Bladder: no Urinary Catheter: None Colostomy/Ileostomy/Ileal Conduit: None Date of Last BM: 04/11/24 Intake/Output Summary (Last 24 hours) at 04/12/2024 1009 Last data filed at 04/12/2024 0822 Gross per 24 hour Intake 240 ml Output 720 ml Net -480 ml I/O last 3 completed shifts: In: 240 (4.2 mL/kg) [P.O.:240] Out: 1195 (21.1 mL/kg) [Urine:1195 (0.6 mL/kg/hr)] Weight: 56.7 kg Safety Concerns: none Impairments/Disabilities: none Nutrition Therapy: Current Nutrition Therapy: Oral diet: general Routes of Feeding: oral Liquids: thin liquids Daily Fluid Restriction: no Last Modified Barium Swallow with Video (Video Swallowing Test): not done Treatments at the Time of Hospital Discharge: Respiratory Treatments: none Oxygen Therapy: is not on home oxygen therapy. Ventilator: No ventilator support Rehab Therapies: physical therapy and occupational therapy Weight Bearing Status/Restrictions: no restriction Other Medical Equipment (for information only, NOT a DME order): none Other Treatments: none Patient's personal belongings (please select all that are sent with patient): none RN SIGNATURE: MANAGEMENT/SOCIAL WORK SECTION Inpatient Status Date: 04/10/2024 Discharging to Facility/ Agency Name: [facility]eman [facility] Address:[address] [place] [address] [address] [facility] [address] Machine Grinder/Reed Maker signature: ICIAN SECTION Name: Sommer Friedman Prognosis: fair Condition at Discharge: stable Rehab Potential (if transferring to Rehab): fair Recommended Labs or Other Treatments After Discharge: none The individual is being admitted to a nursing facility directly from an [facility] or a unit of a [facility] that is not operated by or licensed by [facility] under section 5119.14 or 5160-3-15.1 5 The individual requires the level of services provided by a nursing facility for the condition for which he or she was treated in the hospital and, Physician Certification: I certify the above information and transfer of Sommer Friedman is necessary for the continuing treatment of the diagnosis listed and that she requires intermediate nursing care for greater than 30 days. Update Admission H&P: No changes in H&P PHYSICIAN SIGNATURE: documented in this encounter [facility] 04-10-2024 History and physical note Attending History and Physical Admit Date: 04/10/2024 PCP: Kathi Juarez MD CHIEF COMPLAINT: back pain Reason for Admission: low back fracture History Obtained From: patient, EHR and ED HISTORY OF PRESENT ILLNESS: Sommer is a 84 y.o. female with PMH of afib on rate and rhythm control, chronic back pain, thyroid disorder, anxiety, mild cog impairment/dementia, HTN, HLD, and COPD not on oxygen who presents with chronic back pain is worsened. States that at the [facility] they told her when she for started having the pain that it was mostly just slipped disc but given severity wanted to come in.. In the ED, at [facility] patient with some bradycardic episodes down to the 40s, blood pressure soft to 90s/40s but improved slowly up to the 150s/50s-70s, labs largely unremarkable including her CMP, troponin, CBC, UA. CT abdomen pelvis and CT lumbar spine showed burst fracture in lumbar region as well as mild to moderate spinal stenosis T12-L1. Moderate degenerative stenosis as well and L4-5. Orthopedic surgery recommended admission to [facility] for evaluation and pain control. Past Medical History: No past medical history on file. Past Surgical History: No past surgical history on file. Social History: Social History Socioeconomic History Marital status: Spouse name: Not on file Number of children: Not on file Years of education: Not on file Highest education level: Not on file Occupational History Not on file Tobacco Use Smoking status: Not on file Smokeless tobacco: Not on file Substance and Sexual Activity Alcohol use: Not on file Drug use: Not on file Sexual activity: Not on file Other Topics Concern Not on file Social History Narrative Not on file Social Determinants of Health Financial Resource Strain: Not on file Food Insecurity: Not on file Transportation Needs: Not on file Physical Activity: Not on file Stress: Not on file Social Connections: Not on file Intimate Partner Violence: Not on file Housing Stability: Not on file Family History: No family history on file. Medications Prior to Admission: No current facility-administered medications on file prior to encounter. Current Outpatient Medications on File Prior to Encounter Medication Sig Dispense Refill biotin 5 MG capsule Take 5 mg by mouth daily. carboxymethylcellulose (Refresh Plus) 0.5 % ophthalmic solution Administer 2 drops into both eyes in the morning and 2 drops in the evening. Fluticasone-Salmeterol (Advair Diskus) 500-50 MCG/ACT aerosol powder Inhale 1 puff in the morning and 1 puff in the evening. potassium chloride CR (Klor-Con M20) 20 MEQ ER tablet Take 60 mEq by mouth daily. Do not crush or chew. senna-docusate (Juanis-Colace) 8.6-50 MG tablet Take 1 tablet by mouth daily. sotalol (Betapace) 80 MG tablet Take 40 mg by mouth in the morning and 40 mg before bedtime. Hold for Sbp <100 and dbp < 60 and pulse <60. Allergies: Allergies Allergen Reactions Gabapentin Propoxyphene REVIEW OF SYSTEMS: NEG with pert pos in HPI Vitals: BP 103/63 (BP Location: Left arm, Patient Position: Lying) Pulse 56 Temp 36.9 C (98.4 F) (Temporal) Resp 18 Wt 125 lb (56.7 kg) SpO2 97% BMI Classification: There is no height or weight on file to calculate BMI. Unable to calc at this time Pulse Ox: SpO2 Av % Min: 95 % Max: 100 % Supplemental O2: PHYSICAL EXAM: Physical Exam Vitals reviewed. Constitutional: General: She is not in acute distress. Appearance: Normal appearance. HENT: Head: Normocephalic. Right Ear: External ear normal. Left Ear: External ear normal. Cardiovascular: Rate and Rhythm: Normal rate. Pulses: Normal pulses. Pulmonary: Effort: Pulmonary effort is normal. No respiratory distress. Skin: General: Skin is warm and dry. Neurological: Mental Status: She is alert. Psychiatric: Mood and Affect: Mood normal. Behavior: Behavior normal. DATA: CBC: Recent Labs 04/10/24 1450 WBC 8.0 RBC 4.20 HGB 13.6 HCT 40.6 MCV 96.7 RDW 12.4 PLT 273 BMP: Recent Labs 04/10/24 1450 NA 135 K 4.4 CL 105 CO2 24 BUN 23* CREATININE 1.03 GLUCOSE 94 CALCIUM 9.1 ANIONGAP 6 LIVER PROFILE: Recent Labs 04/10/24 1450 AST 24 ALT 19 BILITOT 0.4 ALKPHOS 78 PROT 5.8* PT/INR: No results for input(s): PROTIME, INR in the last 72 hours. CARDIAC ENZYMES: Recent Labs 04/10/24 1450 TROPONINI <0.012 Procalcitonin: No results found for: PROCAL Urine Culture: No results found for this or any previous visit. COVID-19 PCR: No results for input(s): COVID19 in the last 72 hours. I reviewed: [x] laboratory results [x] radiographic results At the time of today's encounter. Pt was advised of the results. Data: Per HPI (LOW: 2x CAT1 or independent historian MOD: 3x CAT1 or 1x CAT3 EXTENSIVE: 3x CAT1 and 1x CAT3) Assessment Discussed management with the ED provider and agree with hospitalization. Acute, acute on chronic, unstable/uncontrolled chronic problems/diagnoses: incomplete burst fracture of the L1, maif-bs-aafnqxbm spinal stenosis at the T12-L1 level Status post fall 1.5 weeks Pain secondary to above Stable chronic problems affecting care, new non-acute diagnoses: SEE PLAN BELOW Plan As a result of the above findings & factors, the following mgmt was pursued: incomplete burst fracture of the L1, ngol-mt-uymoflaz spinal stenosis at the T12-L1 level Status post fall 1.5 weeks Pain secondary to above -Admit for continued pain management both oral and as needed IV Orthopedic surgery consult (Ortho already aware of patient arriving from [facility]) Brief episode of bradycardia Continue patient on telemetry Continue monitoring and hold patient sotalol temporarily restarted stable A-fib on DOAC Continue patient's home diltiazem as well as her DOAC and hold sotalol due to bradycardic episode Dementia Continue patient's home medications and monitor for delirium protocol - am labs, replace lytes prn - PT/OT/CM/SW - delirium precautions: increase activity - DVT prophylaxis: enoxaparin and encourage ambulation Complexity: Chronic illness with severe exacerbation, progression, or side effect of tx (HIGH). Risk: Admission to hospital-level care was considered or occurred (HIGH). Advance Directive: No Order Anticipated Discharge - Date - 04/14 - Location - Skilled Facility - Pending the following - improvement in acute issue leading to hosp Toxic drug monitoring/narrow therapeutic index drug monitoring : # Drug name : n/a # Route administered : N/A # Method of monitoring : N/A Extended Emergency Contact Information Primary Emergency Contact: Parris Friedman Mobile Relation: Son Secondary Emergency Contact: Rachel Friedmantt Mobile Relation: Son Preferred language: Salvadorean Roll Cutter needed? No [employer] Sommer Friedman : 1940 Primary Care Physician: Kathi Juarez MD The patient and/or family/surrogate voluntarily agreed to participate in ACP services. Patient s cognitive capacity: cog impairmtne Code Status: [x] [FULL CODE - Continue all advanced life support: CPR,intubation,invasive procedures] [] [DNR-CCA - DO NOT do CPR, intubation] [] [DNR-FULLING MILL OPERATOR - Comfort care only] [] DNR form [was/was not] signed Summary of discussion: The patient health care POA/ surrogate is the following: per her records from facility Parris Friedman her son is MERVAT. ------- TOTAL time spent on H&P and ACP: 61 minutes were spent discussing the patient's resuscitation status, advance care planning, and end of life care, with patient and/or family/surrogate AND patient care for this admission (including face to face, chart review, including discussion with ED providers and/or review of their notes, labs and images). Anahi Woods MD Division of Hospitalist Medicine [facility] [employer] Work Phone: 04-10-2024 Note [employer] [facility] 04-10-2024 History and physical note Attending History and Physical Admit Date: 04/10/2024 PCP: Kathi Juarez MD CHIEF COMPLAINT: back pain Reason for Admission: low back fracture History Obtained From: patient, EHR and ED HISTORY OF PRESENT ILLNESS: Sommer is a 84 y.o. female with PMH of afib on rate and rhythm control, chronic back pain, thyroid disorder, anxiety, mild cog impairment/dementia, HTN, HLD, and COPD not on oxygen who presents with chronic back pain is worsened. States that at the [facility] they told her when she for started having the pain that it was mostly just slipped disc but given severity wanted to come in.. In the ED, at [facility] patient with some bradycardic episodes down to the 40s, blood pressure soft to 90s/40s but improved slowly up to the 150s/50s-70s, labs largely unremarkable including her CMP, troponin, CBC, UA. CT abdomen pelvis and CT lumbar spine showed burst fracture in lumbar region as well as mild to moderate spinal stenosis T12-L1. Moderate degenerative stenosis as well and L4-5. Orthopedic surgery recommended admission to [facility] for evaluation and pain control. Past Medical History: No past medical history on file. Past Surgical History: No past surgical history on file. Social History: Social History Socioeconomic History Marital status: Spouse name: Not on file Number of children: Not on file Years of education: Not on file Highest education level: Not on file Occupational History Not on file Tobacco Use Smoking status: Not on file Smokeless tobacco: Not on file Substance and Sexual Activity Alcohol use: Not on file Drug use: Not on file Sexual activity: Not on file Other Topics Concern Not on file Social History Narrative Not on file Social Determinants of Health Financial Resource Strain: Not on file Food Insecurity: Not on file Transportation Needs: Not on file Physical Activity: Not on file Stress: Not on file Social Connections: Not on file Intimate Partner Violence: Not on file Housing Stability: Not on file Family History: No family history on file. Medications Prior to Admission: No current facility-administered medications on file prior to encounter. Current Outpatient Medications on File Prior to Encounter Medication Sig Dispense Refill biotin 5 MG capsule Take 5 mg by mouth daily. carboxymethylcellulose (Refresh Plus) 0.5 % ophthalmic solution Administer 2 drops into both eyes in the morning and 2 drops in the evening. Fluticasone-Salmeterol (Advair Diskus) 500-50 MCG/ACT aerosol powder Inhale 1 puff in the morning and 1 puff in the evening. potassium chloride CR (Klor-Con M20) 20 MEQ ER tablet Take 60 mEq by mouth daily. Do not crush or chew. senna-docusate (Juanis-Colace) 8.6-50 MG tablet Take 1 tablet by mouth daily. sotalol (Betapace) 80 MG tablet Take 40 mg by mouth in the morning and 40 mg before bedtime. Hold for Sbp <100 and dbp < 60 and pulse <60. Allergies: Allergies Allergen Reactions Gabapentin Propoxyphene REVIEW OF SYSTEMS: NEG with pert pos in HPI Vitals: BP 103/63 (BP Location: Left arm, Patient Position: Lying) Pulse 56 Temp 36.9 C (98.4 F) (Temporal) Resp 18 Wt 125 lb (56.7 kg) SpO2 97% BMI Classification: There is no height or weight on file to calculate BMI. Unable to calc at this time Pulse Ox: SpO2 Av % Min: 95 % Max: 100 % Supplemental O2: PHYSICAL EXAM: Physical Exam Vitals reviewed. Constitutional: General: She is not in acute distress. Appearance: Normal appearance. HENT: Head: Normocephalic. Right Ear: External ear normal. Left Ear: External ear normal. Cardiovascular: Rate and Rhythm: Normal rate. Pulses: Normal pulses. Pulmonary: Effort: Pulmonary effort is normal. No respiratory distress. Skin: General: Skin is warm and dry. Neurological: Mental Status: She is alert. Psychiatric: Mood and Affect: Mood normal. Behavior: Behavior normal. DATA: CBC: Recent Labs 04/10/24 1450 WBC 8.0 RBC 4.20 HGB 13.6 HCT 40.6 MCV 96.7 RDW 12.4 PLT 273 BMP: Recent Labs 04/10/24 1450 NA 135 K 4.4 CL 105 CO2 24 BUN 23* CREATININE 1.03 GLUCOSE 94 CALCIUM 9.1 ANIONGAP 6 LIVER PROFILE: Recent Labs 04/10/24 1450 AST 24 ALT 19 BILITOT 0.4 ALKPHOS 78 PROT 5.8* PT/INR: No results for input(s): PROTIME, INR in the last 72 hours. CARDIAC ENZYMES: Recent Labs 04/10/24 1450 TROPONINI <0.012 Procalcitonin: No results found for: PROCAL Urine Culture: No results found for this or any previous visit. COVID-19 PCR: No results for input(s): COVID19 in the last 72 hours. I reviewed: [x] laboratory results [x] radiographic results At the time of today's encounter. Pt was advised of the results. Data: Per HPI (LOW: 2x CAT1 or independent historian MOD: 3x CAT1 or 1x CAT3 EXTENSIVE: 3x CAT1 and 1x CAT3) Assessment Discussed management with the ED provider and agree with hospitalization. Acute, acute on chronic, unstable/uncontrolled chronic problems/diagnoses: incomplete burst fracture of the L1, kiou-vk-wzehcioh spinal stenosis at the T12-L1 level Status post fall 1.5 weeks Pain secondary to above Stable chronic problems affecting care, new non-acute diagnoses: SEE PLAN BELOW Plan As a result of the above findings & factors, the following mgmt was pursued: incomplete burst fracture of the L1, iiad-zr-tqsrbhyg spinal stenosis at the T12-L1 level Status post fall 1.5 weeks Pain secondary to above -Admit for continued pain management both oral and as needed IV Orthopedic surgery consult (Ortho already aware of patient arriving from [facility]) Brief episode of bradycardia Continue patient on telemetry Continue monitoring and hold patient sotalol temporarily restarted stable A-fib on DOAC Continue patient's home diltiazem as well as her DOAC and hold sotalol due to bradycardic episode Dementia Continue patient's home medications and monitor for delirium protocol - am labs, replace lytes prn - PT/OT/CM/SW - delirium precautions: increase activity - DVT prophylaxis: enoxaparin and encourage ambulation Complexity: Chronic illness with severe exacerbation, progression, or side effect of tx (HIGH). Risk: Admission to hospital-level care was considered or occurred (HIGH). Advance Directive: No Order Anticipated Discharge - Date - 04/14 - Location - Skilled Facility - Pending the following - improvement in acute issue leading to hosp Toxic drug monitoring/narrow therapeutic index drug monitoring : # Drug name : n/a # Route administered : N/A # Method of monitoring : N/A Extended Emergency Contact Information Primary Emergency Contact: ElderParris Mobile Relation: Son Secondary Emergency Contact: Jaylan Friedman Mobile Relation: Son Preferred language: Salvadorean Roll Cutter needed? No [employer] Sommer Friedman : 1940 Primary Care Physician: Kathi Juarez MD The patient and/or family/surrogate voluntarily agreed to participate in ACP services. Patient s cognitive capacity: cog impairmtne Code Status: [x] [FULL CODE - Continue all advanced life support: CPR,intubation,invasive procedures] [] [DNR-CCA - DO NOT do CPR, intubation] [] [DNR-FULLING MILL OPERATOR - Comfort care only] [] DNR form [was/was not] signed Summary of discussion: The patient health care POA/ surrogate is the following: per her records from facility Parris Friedman her son is POA. ------- TOTAL time spent on H&P and ACP: 61 minutes were spent discussing the patient's resuscitation status, advance care planning, and end of life care, with patient and/or family/surrogate AND patient care for this admission (including face to face, chart review, including discussion with ED providers and/or review of their notes, labs and images). Anahi Woods MD Division of Hospitalist Medicine [facility] documented in this encounter [facility] 04-10-2024 Emergency department Note NEOAS arrives and report given. Patient loaded and sent. Renny Mahmood RN 04/10/[id number] [facility] 04-10-2024 Emergency department Note NEOAS arrives and report given. Patient loaded and sent. Renny Mahmood RN 04/10/241857 Report called to [address] for room 509-A. Renny Mahmood RN 04/10/24 3964 Pt fall was on 03/29. Pt had 2 XRs and both negative. Sugar Adlre RN 04/10/24 1409 EMERGENCY DEPARTMENT ENCOUNTER Pt Name: Sommer Friedman Birthdate 1940 Date of evaluation: 04/10/2024 ED Provider: Dakota Dempsey MD CHIEF COMPLAINT Chief Complaint Patient presents with Back Pain HISTORY OF PRESENT ILLNESS (Location/Symptom, Timing/Onset, Context/Setting, Quality, Duration, Modifying Factors, Severity) Note limiting factors. I wore appropriate PPE for the entirety of this encounter. HPI Sommer Friedman is a 84 y.o. who presents to the emergency department with chief complaint of low back pain. The patient comes in by EMS of her [facility]. Apparently she may have fallen a few weeks ago. She has been having back pain since then. She had an x-ray of her back a couple days ago which was unremarkable. She was getting Tylenol for pain at the nursing facility. She continues to have pain. The patient has dementia, but is still able to answer questions. There is no one with her at bedside as of yet. She says her stomach bothers her, but she thinks it is a result of being somewhat constipated. She does not murmur her last bowel movement. She denies any vomiting. The patient denies any shooting pains down her legs from her back. She denies any new numbness or weakness in her feet. She denies any numbness in the groin area. She denies any bowel or bladder dysfunction. She denies any fevers or chills today. No current headaches or visual complaints. No cough or URI symptoms. No chest pain. She said she feels little short of breath, but is not sure if that is anything new. No dysuria or frequency described. No rash or bruising. No other complaints. Nursing Notes were reviewed. Limitations to history: None Outside historians: None REVIEW OF SYSTEMS Review of Systems Constitutional: Negative for chills and fever. HENT: Negative for sore throat. Eyes: Negative for visual disturbance. Respiratory: Positive for shortness of breath. Negative for cough. Cardiovascular: Negative for chest pain and palpitations. Gastrointestinal: Positive for abdominal pain and constipation. Negative for diarrhea and vomiting. Genitourinary: Negative for difficulty urinating, dysuria and hematuria. Musculoskeletal: Positive for back pain. Negative for arthralgias. Skin: Negative for color change and rash. Neurological: Negative for weakness, numbness and headaches. All other systems reviewed and are negative. Pertinent positives and negatives as per HPI. PAST MEDICAL HISTORY No past medical history on file. SURGICAL HISTORY No past surgical history on file. CURRENT MEDICATIONS Previous Medications No medications on file ALLERGIES Gabapentin and Propoxyphene FAMILY HISTORY No family history on file. SOCIAL HISTORY Social History Socioeconomic History Marital status: SCREENINGS PHYSICAL EXAM ED Triage Vitals [04/10/24 1350] Temp Heart Rate Resp BP 36.4 C (97.6 F) (!) 47 18 (!) 93/43 SpO2 Temp Source Heart Rate Source Patient Position 95 % Oral Monitor Lying BP Location FiO2 (%) Left arm -- Physical Exam Vitals and nursing note reviewed. Constitutional: Appearance: Normal appearance. She is well-developed. She is not toxic-appearing. Comments: Patient is awake. She may be slightly or pleasantly confused. She appears slightly uncomfortable from pain. She is nontoxic and in no severe distress. HENT: Head: Normocephalic and atraumatic. Right Ear: External ear normal. Left Ear: External ear normal. Nose: Nose normal. Mouth/Throat: Mouth: Mucous membranes are moist. Pharynx: Oropharynx is clear. Eyes: General: No scleral icterus. Extraocular Movements: Extraocular movements intact. Conjunctiva/sclera: Conjunctivae normal. Pupils: Pupils are equal, round, and reactive to light. Cardiovascular: Rate and Rhythm: Regular rhythm. Bradycardia present. Heart sounds: Normal heart sounds. No murmur heard. Pulmonary: Effort: Pulmonary effort is normal. No respiratory distress. Breath sounds: Normal breath sounds. No rhonchi or rales. Abdominal: General: Bowel sounds are normal. Palpations: Abdomen is soft. There is no mass. Tenderness: There is generalized abdominal tenderness. There is no guarding or rebound. Hernia: No hernia is present. Musculoskeletal: Cervical back: Normal range of motion and neck supple. Right lower leg: No edema. Left lower leg: No edema. Comments: Patient is lying supine in the gurney. She has discomfort with movement because of her back. There are no signs of extremity trauma on exam. Skin: General: Skin is warm and dry. Capillary Refill: Capillary refill takes less than 2 seconds. Neurological: General: No focal deficit present. Mental Status: Mental status is at baseline. She is confused. GCS: GCS eye subscore is 4. GCS verbal subscore is 5. GCS motor subscore is 6. Cranial Nerves: Cranial nerves 2-12 are intact. Sensory: Sensation is intact. Motor: Motor function is intact. Coordination: Coordination is intact. Deep Tendon Reflexes: Reflexes are normal and symmetric. Reflex Scores: Patellar reflexes are 2+ on the right side and 2+ on the left side. Comments: Patient is awake. Answers questions appropriately. She has no focal or lateralizing deficits. She has no motor or sensory deficits in the lower extremities. Knee jerk reflexes are 2+ and symmetric. Dorsiflexion of the toes are normal bilaterally. There is no reproducible numbness around the groin area that would account for saddle anesthesia. Straight leg raise for the most part negative bilaterally with no crossed findings. There are no signs or symptoms consistent with a cauda equina syndrome. Psychiatric: Attention and Perception: Attention normal. Mood and Affect: Mood normal. Speech: Speech normal. Behavior: Behavior normal. Thought Content: Thought content normal. Cognition and Memory: Memory is impaired. Judgment: Judgment normal. DIAGNOSTIC RESULTS Lab work unremarkable except for BUN of 23. Cardiac enzymes are negative. Urinalysis is pending. Procedures/EKG: EKG per my interpretation showed a sinus bradycardia at a rate of 48 with a borderline left axis. There is LVH. There is J-point elevation in V2 only. There is no ST elevation or ST depression otherwise. Intervals are within normal limits although QT slightly prolonged. There is no old EKG available for comparison. EKG was reviewed by myself. [facility] (Per Emergency Physician): CT abdomen as interpreted by me showed no evidence of obstruction. Interpretation per the Radiologist below, if available at the time of this note: CT lumbar spine wo IV contrast Final Result 1. Acute incomplete burst fracture of the L1 superior endplate with mild vertebral height loss. Bony retropulsion produces zbrp-um-ajpzqyyl spinal stenosis at the T12-L1 level. 2. No intra-abdominal traumatic injuries. 3. Moderate degenerative spinal stenosis at L4-5. 4. Severe atherosclerotic disease with probable high-grade stenosis of the iliac arteries and possibly the mesenteric and renal arteries. Report Dictated on Electronically Signed By: Kathi Browne MD Electronically Signed Date/Time: 04/10/2024 3:[address] abdomen pelvis wo IV contrast Final Result 1. Acute incomplete burst fracture of the L1 superior endplate with mild vertebral height loss. Bony retropulsion produces [id number]-pqlojpvx spinal stenosis at the T12-L1 level. 2. No intra-abdominal traumatic injuries. 3. Moderate degenerative spinal stenosis at L4-5. 4. Severe atherosclerotic disease with probable high-grade stenosis of the iliac arteries and possibly the mesenteric and renal arteries. Report Dictated on Electronically Signed By: Kathi Browne MD Electronically Signed Date/Time: 04/10/2024 3:03 PM EDT ED BEDSIDE ULTRASOUND: Performed by ED Physician - none LABS: Labs Reviewed COMPREHENSIVE METABOLIC PANEL - Abnormal Result Value SODIUM 135 POTASSIUM 4.4 CHLORIDE 105 CARBON DIOXIDE 24 ANION GAP 6 UREA NITROGEN 23 (*) CREATININE 1.03 GLUCOSE 94 CALCIUM 9.1 AST (SGOT) 24 ALT 19 ALKALINE PHOSPHATASE 78 ALBUMIN 3.1 (*) BILIRUBIN, TOTAL 0.4 TOTAL PROTEIN 5.8 (*) eGFR 54.4 (*) CBC WITH AUTO DIFFERENTIAL - Abnormal Auto WBC 8.0 RBC 4.20 Hemoglobin 13.6 Hematocrit 40.6 MCV 96.7 MCH 32.4 MCHC 33.5 RDW 12.4 Platelets 273 MPV 8.9 (*) nRBC 0.0 Neutrophils Relative 52.6 Lymphocytes Relative 29.6 Monocytes Relative 14.0 (*) Eosinophils Relative 2.4 Basophils Relative 0.4 Immature Grans % 1.0 Neutrophils Absolute 4.2 Lymphocytes Absolute 2.4 Monocytes Absolute 1.1 (*) Eosinophils Absolute 0.2 Basophils Absolute 0.0 Immature Grans Absolute 0.1 (*) CK - Abnormal CK 29 (*) MAGNESIUM - Normal MAGNESIUM 2.0 TROPONIN, WITH SERIAL REFLEX - Normal TROPONIN I <0.012 Narrative: Patients with high levels of Biotin oral intake (ie >5 mg/day) may have falsely decreased Troponin levels. COMPLETE URINALYSIS WITH REFLEX TO CULTURE Narrative: The following orders were created for panel order Urinalysis complete with reflex to Culture. Procedure Abnormality Status --------- ------ Complete Urinalysis[[id number]] Please view results for these tests on the individual orders. COMPLETE URINALYSIS All other labs were within normal range or not returned as of this dictation. EMERGENCY DEPARTMENT COURSE and DIFFERENTIAL DIAGNOSIS/MDM: Vitals: Vitals: 04/10/24 1502 04/10/24 1533 04/10/24 1541 04/10/24 1602 BP: (!) 136/46 102/51 138/70 BP Location: Patient Position: Pulse: (!) 47 69 64 58 Resp: 13 19 (!) 27 13 Temp: TempSrc: SpO2: 98% 98% 100% 96% Weight: Diagnoses as of 04/10/24 1703 Low back pain without sciatica, unspecified back pain laterality, unspecified chronicity Bradycardia Closed fracture of first lumbar vertebra, unspecified fracture morphology, initial encounter ([facility]) The patient presented with chief complaint of back pain. The differential diagnosis associated with this patient's presentation includes back injury/strain, fracture less likely, sciatica less likely, constipation likely, AAA less likely, urinary tract infection less likely, no signs of cauda equina syndrome. Our workup consisted of ordering/reviewing: Imaging studies, EKG and lab work will be obtained. I will try to reach out to the [facility] physician. Patient is in agreement with this plan. Medications Lidocaine 4 % patch 1 patch (has no administration in time range) sodium chloride 0.9 % bolus 500 mL (500 mL IntraVENous New Bag 04/10/24 1453) morphine injection 2 mg (2 mg IntraVENous Given 04/10/24 1541) REVAL: When she first came in, she was transiently bradycardic and mildly hypotensive, although asymptomatic with that. I ordered a modest bolus of fluid. Heart rate came up. Blood pressure is currently normal. While here, she started complaining of pain so I ordered 2 mg of IV morphine. The CT report of the lumbar spine shows acute incomplete burst fracture of the L1 superior endplate with mild vertebral height loss. Bony retropulsion produces vdjb-pn-eeifbhss spinal stenosis at the T12-L1 level. I attempted to reach out to the [facility] physician. I did speak with the staff from the [facility]. They are aware of her injuries. I did consult the orthopedic spine team. They reviewed the images and did not feel as though any emergency surgery was indicated. They did say that she would likely require transfer to [facility] for a closer evaluation considering her symptoms. I did reach out to the hospitalist at [facility]. The transient hypotension and bradycardia was likely medication related. Vitals are currently stable. The patient will be transferred to the [facility] for pain control, vital sign monitoring and orthopedic consultation. CONSULTS: Orthopedics FINAL IMPRESSION 1. Low back pain without sciatica, unspecified back pain laterality, unspecified chronicity 2. Bradycardia 3. Closed fracture of first lumbar vertebra, unspecified fracture morphology, initial encounter ([facility]) DISPOSITION Admit 04/10/2024 04:59:22 PM PATIENT REFERRED TO: No follow-up provider specified. DISCHARGE MEDICATIONS: New Prescriptions No medications on file (Comment: Please note this report has been produced using speech recognition software and may contain errors related to that system including errors in grammar, punctuation, and spelling, as well as words and phrases that may be inappropriate. If there are any questions or concerns please feel free to contact the dictating provider for clarification.) Dakota Dempsey MD (electronically signed) Emergency Medicine Provider Dakota Dempsey MD 04/10/24 8295 Patient arrives via ambulance from SNF due to lower back pain caused by a fall several days ago. Patient has dementia and is a poor historian. documented in this encounter [facility] 04-10-2024 Emergency department Note Report called to [address] for room 509-A. Renny Mahmood RN 04/10/24 7689 [facility] 04-10-2024 Emergency department Note Pt fall was on 03/29. Pt had 2 XRs and both negative. Sugar Adler RN 04/10/24 5315 [facility] 04-10-2024 Emergency department Triage note Patient arrives via ambulance from [facility] due to lower back pain caused by a fall several days ago. Patient has dementia and is a poor historian. [facility] 04-10-2024 Physician Emergency department Note EMERGENCY DEPARTMENT ENCOUNTER Pt Name: Sommer Friedman Birthdate 1940 Date of evaluation: 04/10/2024 ED Provider: Dakota Dempsey MD CHIEF COMPLAINT Chief Complaint Patient presents with Back Pain HISTORY OF PRESENT ILLNESS (Location/Symptom, Timing/Onset, Context/Setting, Quality, Duration, Modifying Factors, Severity) Note limiting factors. I wore appropriate PPE for the entirety of this encounter. HPI Sommer Friedman is a 84 y.o. who presents to the emergency department with chief complaint of low back pain. The patient comes in by EMS of her [facility]. Apparently she may have fallen a few weeks ago. She has been having back pain since then. She had an x-ray of her back a couple days ago which was unremarkable. She was getting Tylenol for pain at the nursing facility. She continues to have pain. The patient has dementia, but is still able to answer questions. There is no one with her at bedside as of yet. She says her stomach bothers her, but she thinks it is a result of being somewhat constipated. She does not murmur her last bowel movement. She denies any vomiting. The patient denies any shooting pains down her legs from her back. She denies any new numbness or weakness in her feet. She denies any numbness in the groin area. She denies any bowel or bladder dysfunction. She denies any fevers or chills today. No current headaches or visual complaints. No cough or URI symptoms. No chest pain. She said she feels little short of breath, but is not sure if that is anything new. No dysuria or frequency described. No rash or bruising. No other complaints. Nursing Notes were reviewed. Limitations to history: None Outside historians: None REVIEW OF SYSTEMS Review of Systems Constitutional: Negative for chills and fever. HENT: Negative for sore throat. Eyes: Negative for visual disturbance. Respiratory: Positive for shortness of breath. Negative for cough. Cardiovascular: Negative for chest pain and palpitations. Gastrointestinal: Positive for abdominal pain and constipation. Negative for diarrhea and vomiting. Genitourinary: Negative for difficulty urinating, dysuria and hematuria. Musculoskeletal: Positive for back pain. Negative for arthralgias. Skin: Negative for color change and rash. Neurological: Negative for weakness, numbness and headaches. All other systems reviewed and are negative. Pertinent positives and negatives as per HPI. PAST MEDICAL HISTORY No past medical history on file. SURGICAL HISTORY No past surgical history on file. CURRENT MEDICATIONS Previous Medications No medications on file ALLERGIES Gabapentin and Propoxyphene FAMILY HISTORY No family history on file. SOCIAL HISTORY Social History Socioeconomic History Marital status: SCREENINGS PHYSICAL EXAM ED Triage Vitals [04/10/24 1350] Temp Heart Rate Resp BP 36.4 C (97.6 F) (!) 47 18 (!) 93/43 SpO2 Temp Source Heart Rate Source Patient Position 95 % Oral Monitor Lying BP Location FiO2 (%) Left arm -- Physical Exam Vitals and nursing note reviewed. Constitutional: Appearance: Normal appearance. She is well-developed. She is not toxic-appearing. Comments: Patient is awake. She may be slightly or pleasantly confused. She appears slightly uncomfortable from pain. She is nontoxic and in no severe distress. HENT: Head: Normocephalic and atraumatic. Right Ear: External ear normal. Left Ear: External ear normal. Nose: Nose normal. Mouth/Throat: Mouth: Mucous membranes are moist. Pharynx: Oropharynx is clear. Eyes: General: No scleral icterus. Extraocular Movements: Extraocular movements intact. Conjunctiva/sclera: Conjunctivae normal. Pupils: Pupils are equal, round, and reactive to light. Cardiovascular: Rate and Rhythm: Regular rhythm. Bradycardia present. Heart sounds: Normal heart sounds. No murmur heard. Pulmonary: Effort: Pulmonary effort is normal. No respiratory distress. Breath sounds: Normal breath sounds. No rhonchi or rales. Abdominal: General: Bowel sounds are normal. Palpations: Abdomen is soft. There is no mass. Tenderness: There is generalized abdominal tenderness. There is no guarding or rebound. Hernia: No hernia is present. Musculoskeletal: Cervical back: Normal range of motion and neck supple. Right lower leg: No edema. Left lower leg: No edema. Comments: Patient is lying supine in the gurney. She has discomfort with movement because of her back. There are no signs of extremity trauma on exam. Skin: General: Skin is warm and dry. Capillary Refill: Capillary refill takes less than 2 seconds. Neurological: General: No focal deficit present. Mental Status: Mental status is at baseline. She is confused. GCS: GCS eye subscore is 4. GCS verbal subscore is 5. GCS motor subscore is 6. Cranial Nerves: Cranial nerves 2-12 are intact. Sensory: Sensation is intact. Motor: Motor function is intact. Coordination: Coordination is intact. Deep Tendon Reflexes: Reflexes are normal and symmetric. Reflex Scores: Patellar reflexes are 2+ on the right side and 2+ on the left side. Comments: Patient is awake. Answers questions appropriately. She has no focal or lateralizing deficits. She has no motor or sensory deficits in the lower extremities. Knee jerk reflexes are 2+ and symmetric. Dorsiflexion of the toes are normal bilaterally. There is no reproducible numbness around the groin area that would account for saddle anesthesia. Straight leg raise for the most part negative bilaterally with no crossed findings. There are no signs or symptoms consistent with a cauda equina syndrome. Psychiatric: Attention and Perception: Attention normal. Mood and Affect: Mood normal. Speech: Speech normal. Behavior: Behavior normal. Thought Content: Thought content normal. Cognition and Memory: Memory is impaired. Judgment: Judgment normal. DIAGNOSTIC RESULTS Lab work unremarkable except for BUN of 23. Cardiac enzymes are negative. Urinalysis is pending. Procedures/EKG: EKG per my interpretation showed a sinus bradycardia at a rate of 48 with a borderline left axis. There is LVH. There is J-point elevation in V2 only. There is no ST elevation or ST depression otherwise. Intervals are within normal limits although QT slightly prolonged. There is no old EKG available for comparison. EKG was reviewed by myself. Physician EKG interpretation can be found in [facility] RADIOLOGY (Per Emergency Physician): CT abdomen as interpreted by me showed no evidence of obstruction. Interpretation per the Radiologist below, if available at the time of this note: CT lumbar spine wo IV contrast Final Result 1. Acute incomplete burst fracture of the L1 superior endplate with mild vertebral height loss. Bony retropulsion produces jyxt-vz-hkvedwnb spinal stenosis at the T12-L1 level. 2. No intra-abdominal traumatic injuries. 3. Moderate degenerative spinal stenosis at L4-5. 4. Severe atherosclerotic disease with probable high-grade stenosis of the iliac arteries and possibly the mesenteric and renal arteries. Report Dictated on Electronically Signed By: Kathi Browne MD Electronically Signed Date/Time: 04/10/2024 3:[address] abdomen pelvis wo IV contrast Final Result 1. Acute incomplete burst fracture of the L1 superior endplate with mild vertebral height loss. Bony retropulsion produces tcqz-to-wliuonnz spinal stenosis at the T12-L1 level. 2. No intra-abdominal traumatic injuries. 3. Moderate degenerative spinal stenosis at L4-5. 4. Severe atherosclerotic disease with probable high-grade stenosis of the iliac arteries and possibly the mesenteric and renal arteries. Report Dictated on Electronically Signed By: Kathi Browne MD Electronically Signed Date/Time: 04/10/2024 3:03 PM EDT ED BEDSIDE ULTRASOUND: Performed by ED Physician - none LABS: Labs Reviewed COMPREHENSIVE METABOLIC PANEL - Abnormal Result Value SODIUM 135 POTASSIUM 4.4 CHLORIDE 105 CARBON DIOXIDE 24 ANION GAP 6 UREA NITROGEN 23 (*) CREATININE 1.03 GLUCOSE 94 CALCIUM 9.1 AST (SGOT) 24 ALT 19 ALKALINE PHOSPHATASE 78 ALBUMIN 3.1 (*) BILIRUBIN, TOTAL 0.4 TOTAL PROTEIN 5.8 (*) eGFR 54.4 (*) CBC WITH AUTO DIFFERENTIAL - Abnormal Auto WBC 8.0 RBC 4.20 Hemoglobin 13.6 Hematocrit 40.6 MCV 96.7 MCH 32.4 MCHC 33.5 RDW 12.4 Platelets 273 MPV 8.9 (*) nRBC 0.0 Neutrophils Relative 52.6 Lymphocytes Relative 29.6 Monocytes Relative 14.0 (*) Eosinophils Relative 2.4 Basophils Relative 0.4 Immature Grans % 1.0 Neutrophils Absolute 4.2 Lymphocytes Absolute 2.4 Monocytes Absolute 1.1 (*) Eosinophils Absolute 0.2 Basophils Absolute 0.0 Immature Grans Absolute 0.1 (*) CK - Abnormal CK 29 (*) MAGNESIUM - Normal MAGNESIUM 2.0 TROPONIN, WITH SERIAL REFLEX - Normal TROPONIN I <0.012 Narrative: Patients with high levels of Biotin oral intake (ie >5 mg/day) may have falsely decreased Troponin levels. COMPLETE URINALYSIS WITH REFLEX TO CULTURE Narrative: The following orders were created for panel order Urinalysis complete with reflex to Culture. Procedure Abnormality Status --------- ------ Complete Urinalysis[[id number]] Please view results for these tests on the individual orders. COMPLETE URINALYSIS All other labs were within normal range or not returned as of this dictation. EMERGENCY DEPARTMENT COURSE and DIFFERENTIAL DIAGNOSIS/MDM: Vitals: Vitals: 04/10/24 1502 04/10/24 1533 04/10/24 1541 04/10/24 1602 BP: (!) 136/46 102/51 138/70 BP Location: Patient Position: Pulse: (!) 47 69 64 58 Resp: 13 19 (!) 27 13 Temp: TempSrc: SpO2: 98% 98% 100% 96% Weight: Diagnoses as of 04/10/24 1703 Low back pain without sciatica, unspecified back pain laterality, unspecified chronicity Bradycardia Closed fracture of first lumbar vertebra, unspecified fracture morphology, initial encounter ([facility]) The patient presented with chief complaint of back pain. The differential diagnosis associated with this patient's presentation includes back injury/strain, fracture less likely, sciatica less likely, constipation likely, AAA less likely, urinary tract infection less likely, no signs of cauda equina syndrome. Our workup consisted of ordering/reviewing: Imaging studies, EKG and lab work will be obtained. I will try to reach out to the [facility] physician. Patient is in agreement with this plan. Medications Lidocaine 4 % patch 1 patch (has no administration in time range) sodium chloride 0.9 % bolus 500 mL (500 mL IntraVENous New Bag 04/10/24 1453) morphine injection 2 mg (2 mg IntraVENous Given 04/10/24 1541) REVAL: When she first came in, she was transiently bradycardic and mildly hypotensive, although asymptomatic with that. I ordered a modest bolus of fluid. Heart rate came up. Blood pressure is currently normal. While here, she started complaining of pain so I ordered 2 mg of IV morphine. The CT report of the lumbar spine shows acute incomplete burst fracture of the L1 superior endplate with mild vertebral height loss. Bony retropulsion produces [id number]-yz-[id number] spinal stenosis at the T12-L1 level. I attempted to reach out to the [facility] physician. I did speak with the staff from the [facility]. They are aware of her injuries. I did consult the orthopedic spine team. They reviewed the images and did not feel as though any emergency surgery was indicated. They did say that she would likely require transfer to [facility] for a closer evaluation considering her symptoms. I did reach out to the hospitalist at [facility]. The transient hypotension and bradycardia was likely medication related. Vitals are currently stable. The patient will be transferred to the [facility] for pain control, vital sign monitoring and orthopedic consultation. CONSULTS: Orthopedics FINAL IMPRESSION 1. Low back pain without sciatica, unspecified back pain laterality, unspecified chronicity 2. Bradycardia 3. Closed fracture of first lumbar vertebra, unspecified fracture morphology, initial encounter ([facility]) DISPOSITION Admit 04/10/2024 04:59:22 PM PATIENT REFERRED TO: No follow-up provider specified. DISCHARGE MEDICATIONS: New Prescriptions No medications on file (Comment: Please note this report has been produced using speech recognition software and may contain errors related to that system including errors in grammar, punctuation, and spelling, as well as words and phrases that may be inappropriate. 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 Sensorineural hearing loss, unilateral, left ear, 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 Chronic eustachian salpingitis, unspecified ear Other abnormal auditory perceptions, unspecified ear documented in this encounter [facility]* Diagnosis Sensorineural hearing loss, unilateral, right ear, 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- Primary Sensorineural hearing loss, unilateral, left ear, 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 Chronic eustachian salpingitis, unspecified ear Other abnormal auditory perceptions, unspecified ear Sensorineural hearing loss, unilateral, right ear, 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 Sensorineural hearing loss, unilateral, left ear, 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 Chronic eustachian salpingitis, unspecified ear Other abnormal auditory perceptions, unspecified ear [facility]* Diagnosis Low back pain without sciatica, unspecified back pain laterality, unspecified chronicity- Primary Low back pain without sciatica, unspecified back pain laterality, unspecified chronicity Bradycardia Other specified cardiac dysrhythmias Closed fracture of first lumbar vertebra, unspecified fracture morphology, initial encounter ([facility]) [facility] Diagnosis Hypertension, unspecified type- Primary Atrial fibrillation, unspecified type ([facility]) [facility]* Diagnosis New onset atrial fibrillation ([facility])- Primary Atrial fibrillation NSTEMI (non-ST elevated myocardial infarction) ([facility]) Acute myocardial infarction, subendocardial infarction, episode of care unspecified Atrial fibrillation with RVR ([facility]) Chest pain, unspecified type documented in this encounter [facility]* Diagnosis Dementia, unspecified dementia severity, unspecified dementia type, unspecified whether behavioral, psychotic, or mood disturbance or anxiety (HCC)- Primary documented in this encounter [facility]* Diagnosis Acute heart failure with preserved ejection fraction (HFpEF) (HCC)- Primary Acute decompensated heart failure (HCC) Atrial fibrillation with rapid ventricular response (HCC) Dementia (HCC) Other persistent mental disorders due to conditions classified elsewhere Atrial fibrillation, permanent (HCC) Debility Unspecified debility Essential hypertension Unspecified essential hypertension documented in this encounter [facility] note* Diagnosis Permanent atrial fibrillation (HCC)- Primary Atrial fibrillation Atrial fibrillation with rapid ventricular response (HCC) Encounter to establish care with new provider Essential hypertension Unspecified essential hypertension [facility] Diagnosis H/O acute pancreatitis- Primary Acute pancreatitis, unspecified complication status, unspecified pancreatitis type Dementia without behavioral disturbance, psychotic disturbance, mood disturbance, or anxiety, unspecified dementia severity, unspecified dementia type (HCC) Slow transit constipation Delirium Other alteration of consciousness Debility Unspecified debility Acute pancreatitis, unspecified complication status, unspecified pancreatitis type documented in this encounter [facility] Discharge instructions* Attachments The following attachments cannot be sent through Care Everywhere. * Dementia Discharge Instructions (Salvadorean) [facility] Diagnostic Procedure Only (Routine) - New Request Specialty Diagnoses / Procedures Referred By Ghislaine rosenberg Referred To Contact MOLECULAR & FUNCTIONAL IMAGING Diagnoses Atrial fibrillation, unspecified type (HCC) Procedures NM CARDIAC PERF STRESS/PHARM MYOCARDIAL SPECT MULTIPLE STUDIES Joana Wilson MD [address] [place] [id number] [facility] [address] [place] [address] Referral ID Status Reason Start Date Expiration Date Visits Requested Visits Authorized [id number] New Request Auto-Generat ed Referral 08/23/2024 09/22/2025 1 1 * Outpatient Procedure (Routine) - New Request Specialty Diagnoses / Procedures Referred By Ghislaine rosenberg Referred To Contact [facility] Diagnoses Atrial fibrillation, unspecified type (HCC) Procedures ECHO ECHO TTHRC R-T 2D W/WOM-MODE COMPL SPEC&COLR D Joana Wilson MD [address] [place] [address] [facility] [place] [address] Referral ID Status Reason Start Date Expiration Date Visits Requested Visits Authorized [id number] New Request Auto-Generat ed Referral 08/23/2024 08/23/2025 1 1 [facility]No reason for [facility] Work Phone: Chief Complaint and Reason for Visit Chief Complaint LABWORK CUSTODIAL LAB WORK Chief Complaint LABWORK CUSTODIAL LAB WORK CUSTODIAL LAB WORK Chief Complaint LABWORK CUSTODIAL LAB WORK CUSTODIAL LAB WORK LABWORK Chief Complaint LABWORK CUSTODIAL LAB WORK CUSTODIAL LAB WORK LABWORK LABWORK Chief Complaint LABWORK CUSTODIAL LAB WORK CUSTODIAL LAB WORK LABWORK CUSTODIAL LABWORK LABWORK Chief Complaint LABWORK CUSTODIAL LAB WORK CUSTODIAL LAB WORK LABWORK CUSTODIAL LABWORK LABWORK LABWORK Chief Complaint CUSTODIAL LAB WOR K LABWORK CUSTODIAL LABWORK LABWORK LABWORK LABWORK Chief Complaint LABWORK LABWORK LABWORK LABWORK Chief Complaint LABWORK LABWORK LABWORK CUSTODIAL LAB WORK Chief Complaint LABWORK LABWORK LABWORK CUSTODIAL LAB WORK LABWORK Chief Complaint Admit Date CUSTODIAL LAB WORK October 08 4:00am LAB WORK October 23, 2024 5:00 am LABWORK October 25, 2024 6:20 am LABWORK October 28, 2024 5:0 0am LAB WORK November 04, 2024 5:0 0am CUSTODIAL LAB WORK November 26, 2024 4: 00am LABWORK December 04, 2024 5:0 0am Chief Complaint Admit Date CUSTODIAL LAB WORK October 08 4:00am LAB WORK October 23, 2024 5:00 am LABWORK October 25, 2024 6:20 am LABWORK October 28, 2024 5:0 0am LAB WORK November 04, 2024 5:0 0am CUSTODIAL LAB WORK November 26, 2024 4: 00am LABWORK December 04, 2024 5:0 0am LABWORK December 16, 2024 5:0 0am Chief Complaint Admit Date CUSTODIAL LAB WORK October 08 4:00am LAB WORK October 23, 2024 5:00 am LABWORK October 25, 2024 6:20 am LABWORK October 28, 2024 5:0 0am LAB WORK November 04, 2024 5:0 0am CUSTODIAL LAB WORK November 26, 2024 4: 00am LABWORK December 04, 2024 5:0 0am LABWORK December 16, 2024 5:0 0am LABOWRK December 30, 2024 5:00a m Reason for Referral Specialty Diagnoses / Procedures Referred By Ghislaine rosenberg Referred To Contact Radiology Diagnoses Sensorineural hearing loss, unilateral, right ear, 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 Sensorineural hearing loss, unilateral, left ear, 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 Chronic eustachian salpingitis, unspecified ear Other abnormal auditory perceptions, unspecified ear Procedures MR brain w and wo contrast Blayne Rojas, DO [address] [place] [address] [facility] [address] [place] [address] Referral ID Status Reason Start Date Expiration Date Visits Re quested Visits Authorized [id number] Closed 11/09/2023 11/08/2024 1 1 Specialty Diagnoses / Procedures Referred By Ghislaine rosenberg Referred To Contact Radiology Diagnoses Sensorineural hearing loss, unilateral, right ear, 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 Sensorineural hearing loss, unilateral, left ear, 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 Chronic eustachian salpingitis, unspecified ear Other abnormal auditory perceptions, unspecified ear Procedures MR brain w and wo contrast Blayne Rojas, DO [address] [place] [address] [facility] [address] [place] [address] Advance Directives No Advanced Directives Records Found Date Activated Date Inactivated Comments 04/10/2024 8:11 PM 04/12/2024 7:42 PM Date Activated Date Inactivated Comments 10/17/2024 2:05 PM 10/19/2024 9:48 PM Date Activated Date Inactivated Comments 04/10/2024 8:11 PM 04/12/2024 7:42 PM Date Activated Date Inactivated Comments 10/30/2024 7:37 AM 11/01/2024 9:04 PM Date Activated Date Inactivated Comments 10/17/2024 2:05 PM 10/19/2024 9:48 PM Date Activated Date Inactivated Comments 04/10/2024 8:11 PM 04/12/2024 7:42 PM Date Activated Date Inactivated Comments 10/30/2024 7:37 AM 11/01/2024 9:04 PM Date Activated Date Inactivated Comments 10/17/2024 2:05 PM 10/19/2024 9:48 PM Date Activated Date Inactivated Comments 04/10/2024 8:11 PM 04/12/2024 7:42 PM Date Activated Date Inactivated Comments 01/06/2025 10:39 AM 01/08/2025 6:29 PM Date Activated Date Inactivated Comments 10/30/2024 7:37 AM 11/01/2024 9:04 PM Date Activated Date Inactivated Comments 10/17/2024 2:05 PM 10/19/2024 9:48 PM Date Activated Date Inactivated Comments 04/10/2024 8:11 PM 04/12/2024 7:42 PM Summary Purpose Family History No Family History Records FoundNo Family History Records FoundNo Family History Records Found Additional Source Comments Care Teams (unrecognized sec tion and content) Team Status: Inactive Member Role Status Dates Kathi KULKARNI Attending Provider Active Team Status: Inactive Member Role Status Dates Kathi KULKARNI Attending Provider, Referring Provid er Active Team Status: Active Member Role Status Dates Kathi KULKARNI Attending Provider Active Reliability Technologist Relationship Specialty Start Date End Date System, [employer] [address] [place] [phone] PCP - General 11/22/23 Reliability Technologist Relationship Specialty Start Date End Date System, [place] [address] PCP - General 11/22/23 Reliability Technologist Relationship Specialty Start Date End Date Kathi Juarez MD [address] [place] [address] [address] [place], [place] [id number] PCP - General Family Medicine 04/10/24 Reliability Technologist Relationship Specialty Start Date End Date Kathi Juarez MD [address] [place] [address] PCP - General Family Medicine 08/23/24 Reliability Technologist Relationship Specialty Start Date End Date Kathi Juarez MD [address] [place] [address] [address] [place] [address] PCP - General Family Medicine 04/10/24 Reliability Technologist Relationship Specialty Start Date End Date Kathi Juarez MD [address] [place] [address] [address] [place] [address] PCP - General Family Medicine 04/10/24 Reliability Technologist Relationship Specialty Start Date End Date Kathi Juarez MD [address] [place] [address] [address] [place] [address] PCP - General Family Medicine 04/10/24 Reliability Technologist Relationship Specialty Start Date End Date Kathi Juarez MD [address] [place] [address] [address] [place] [address] PCP - General Family Medicine 04/10/24 Team Status: Active Member Role Status Dates Kathi KULKARNI Attending Provider Active Star t: October 08, 2024 Kathi KULKARNI Referring Provider Active Star t: October 08, 2024 Team Status: Active Member Role Status Dates [facility] Attending Provider Active Start: October 23, 2024 Team Status: Active Member Role Status Dates Kathi KULKARNI Attending Provider Active Star t: October 25, 2024 Team Status: Active Member Role Status Dates Kathi KULKARNI Attending Provider Active Star t: October 28, 2024 Team Status: Active Member Role Status Dates Kathi KULKARNI Attending Provider Active Star t: November 04, 2024 Team Status: Inactive Member Role Status Dates Kathi KULKARNI Attending Provider Active Star t: November 26, 2024 End: November 26, 2024 Kathi KULKARNI Referring Provider Active Star t: November 26, 2024 End: November 26, 2024 Team Status: Inactive Member Role Status Dates Kathi KULKARNI Attending Provider Active Star t: December 04, 2024 End: December 04, 2024 Team Status: Active Member Role Status Dates Kathi KULKARNI Attending Provider Active Star t: December 16, 2024 Team Status: Active Member Role Status Dates Kathi KULKARNI Attending Provider Active Star t: December 23, 2024 Team Status: Inactive Member Role Status Dates Kathi KULKARNI Attending Provider Active Star t: December 16, 2024 End: December 16, 2024 Team Status: Active Member Role Status Dates Kathi KULKARNI Attending Provider Active Star t: December 30, 2024 Reliability Technologist Relationship Specialty Start Date End Date Kathi Juarez MD [address] [place] [address] [place] [id number] PCP - General Family Medicine 04/10/24 Team Status: Inactive Member Role Status Dates Kathi KULKARNI Attending Provider Active Star t: December 30, 2024 End: December 30, 2024 Team Status: Active Member Role Status Dates Kathi KULKARNI Attending Provider Active Star t: January 14, 2025 Team Status: Active Member Role Status Dates Kathi KULKARNI Attending Provider Active Star t: January 15, 2025 Goals (unrecognized section and content) Goals may be documented in a n alternate sectionGoals may be documented in an alternate sectionGoals may be documented in an alternate sectionGoals may be documented in an alternate sectionGoals may be documented in an alternate sectionGoals may be documented in an alternate sectionGoals may be documented in an alternate sectionGoals may be documented in an alternate sectionGoals may be documented in an alternate sectionGoals may be documented in an alternate sectionGoals may be documented in an alternate sectionGoals may be documented in an alternate sectionGoals may be documented in an alternate section Reason for Visit (unrecogniz ed section and content) Specialty Diagnoses / Procedures Referred By Arleneac t Referred To Contact Radiology Diagnoses Sensorineural hearing loss, unilateral, right ear, 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 Sensorineural hearing loss, unilateral, left ear, 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 Chronic eustachian salpingitis, unspecified ear Other abnormal auditory perceptions, unspecified ear Procedures MR brain w and wo contrast Blayne Rojasen, DO [address] [place] [address] [facility] [address] [place] [address] Referral ID Status Reason Start Date Expiration Date Visits Re quested Visits Authorized [id number] Closed 11/09/2023 11/08/2024 1 1 Reason Comments Back Pain Specialty Diagnoses / Procedures Referred By Ghislaine t Referred To Contact Diagnoses Bradycardia Closed fracture of first lumbar vertebra, unspecified fracture morphology, initial encounter (HCC) Low back pain without sciatica, unspecified back pain laterality, unspecified chronicity Procedures [id number] De La Garza MD [address] [place] [address] Ach [address]e Obs [address] [place] [phone] Referral ID Status Reason Start Date Expiration Date Visits Re quested Visits Authorized [id number] 1 1 Reason Comments New Patient Room 15New Dr Carlita aggarwal Referral from 05/01/24EKG Today Specialty Diagnoses / Procedures Referred By Ghislaine rosenberg Referred To Contact Neurology / ADULT NEUROLOGY Diagnoses TIA (transient ischemic attack) TIA Procedures OFFICE/OUTPATIENT NEW HIGH MDM 60 MINUTES OFFICE/OUTPATIENT ESTABLISHED HIGH MDM 40 MIN [facility] Royer Zambrano, [address] [facility] [place] [address] José Black MD [address] [place] [address] [place] [address] Referral ID Status Reason Start Date Expiration Date Visits Requested Visits Authorized [id number] Authorized OON/Self Pay Override 4 08/05/2025 99 99 Reason Comments Chest Pain Patient brought in b y EMS from [facility] for chest pain that started last night. Per SNF patient was complaining of chest pain and SOB starting last night. They that is was due to patient being anxious. The nurse states that she was still having the complaints today so she called to have the patient brought in. Patient denies complaints now. EMS states Chest pain resolved during transport Patient is A&Ox3 Specialty Diagnoses / Procedures Referred By Ghislaine rosenberg Referred To Contact Diagnoses New onset atrial fibrillation (HCC) Procedures - Phill Forte MD [address] [place] [address] Phone: tel: fax: [facility] ED [address] [place] [address] Phone: tel: Referral ID Status Reason Start Date Expiration Date Visits Re quested Visits Authorized [id number] 1 1 Reason Comments Other AMS per SNF but pt i s A&Ox4 for EMS Reason Comments Irregular Heart Beat Specialty Diagnoses / Procedures Referred By Ghislaine rosenberg Referred To Contact Diagnoses Atrial fibrillation with rapid ventricular response (HCC) Acute decompensated heart failure (HCC) Procedures . Toribio Shepherd MD [address] [facility] [address] [place] [address] Phone: tel: fax: [facility] Cardiac Progressive Care Unit PCU [address] [place] [address] Phone: tel: Referral ID Status Reason Start Date Expiration Date Visits Re quested Visits Authorized [id number] 1 1 Reason Comments New Patient Congestive Heart Failure Atrial Fibrillation Specialty Diagnoses / Procedures Referred By Ghislaine rosenberg Referred To Contact Cardiology Diagnoses Atrial fibrillation with rapid ventricular response (HCC) Procedures CT OFFICE/OUTPATIENT NEW HIGH MDM 60 MINUTES Marcos Araujo MD [address] [place] [address] Phone: tel: fax: Tevin Conner MD [address] [place] [address] Phone: tel: fax: Referral ID Status Reason Start Date Expiration Date V isits Requested Visits Authorized [id number] Closed Specialty Services Required 10/29/2024 10/29/2025 1 1 Reason Comments Constipation Per patient she has no complaints. Per EMS she is constipated per nursing facility Specialty Diagnoses / Procedures Referred By Ghislaine t Referred To Contact Diagnoses H/O acute pancreatitis Acute pancreatitis, unspecified complication status, unspecified pancreatitis type Procedures . Vesta Amaya MD [address] [place] [address] Phone: tel: fax: [facility] [address] [address] Phone: tel: Referral ID Status Reason Start Date Expiration Date Visits Re quested Visits Authorized [id number] Scheduled Active and Recently Administ ered Medications (unrecognized section and content) Medication Order 04/10/2024 04/11/2024 04/12/2024 busPIRone (Buspar) tablet 5 mg 5 mg, Oral, 2 times daily, First dose on Mon04/10/24 at 2100 2212 (Given - Provider: Ethan Brower RN) 1038 (Given - Provider: Sunitha Qureshi RN)2103 (Given - Provider: Ethan Brower RN) 0828 (Given - Provider: Vicky Maguire, PAOLA) escitalopram (Lexapro) tablet 15 mg 15 mg, Oral, Daily, First dose on Mon04/10/24 at 2100 2215 (Given - Provider: Ethan Brower RN) 1038 (Given - Provider: Sunitha Qureshi, PAOLA) 0828 (Given - Provider: Vicky Maguire, PAOLA) levothyroxine (Synthroid, Levoxyl) tablet 88 mcg 88 mcg, Oral, Daily before breakfast, First dose on Mon04/11/24 at 0600 0518 (Given - Provider: Ethan Brower RN) 0522 (Given - Provider: Ethan Brower RN) Lidocaine 4 % patch 1 patch 1 patch, TransDERmal, Administer over 12 Hours, Daily, First dose on Mon04/10/24 at 1500, Apply patch to back. Patch may remain in place for up to 12 hours in any 24 hour period. 1500 (Canceled Entry - Provider: Automatic Discharge Provider - Comment: Automatically canceled at discontinue of medication order) 1043 (Medication Applied - Provider: Sunitha Qureshi RN)2243 (Medication Removed - Provider: Mar Kaiser RN) 0828 (Medication Applied - Provider: Vicky Maguire, PAOLA)1736 (Due: Medication Removed - Provider: Automatic Discharge Provider - Comment: Time automatically adjusted from order being discontinued) losartan (Cozaar) tablet 50 mg 50 mg, Oral, 2 times daily, First dose on Mon04/10/24 at 2100 2212 (Given - Provider: Ethan Brower RN) 1038 (Given - Provider: Sunitha Qureshi RN)210 (Given - Provider: Ethan Brower RN) 0828 (Given - Provider: Vicky Maguire RN) melatonin tablet 10 mg 10 mg, Oral, Nightly, First dose on Mon04/10/24 at 2100 2211 (Given - Provider: Ethan Brower RN) 2103 (Given - Provider: Ethan Brower RN) morphine injection 2 mg (COMPLETED) 2 mg, IntraVENous, Once, On Mon04/10/24 at 1535, For 1 dose, If oral and IV narcotics ordered, use oral first and only use IV if oral is ineffective or cannot take oral. Do Not give oral and IV within 1 hour of each other unless specifically ordered. 1541 (Given - Provider: Latonya Nelson, EMT) senna-docusate sodium (Senokot-S) 8.6-50 MG tablet 1 tablet 1 tablet, Oral, Daily, First dose on Mon04/10/24 at 2100 2212 (Given - Provider: Ethan Brower RN) 1038 (Given - Provider: Sunitha Qureshi RN) 0828 (Given - Provider: Vicky Maguire RN) sodium chloride 0.9 % bolus 1,000 mL (COMPLETED) 1,000 mL, IntraVENous, at 500 mL/hr, Administer over 2 Hours, Once, On Crissy 04/11/24 at 2315, For 1 dose 2325 (New Bag - Provider: Mar Kaiser RN) 0125 (Stopped - Provider: Mar Kaiser RN) sodium chloride 0.9 % bolus 500 mL (COMPLETED) 500 mL, IntraVENous, at 500 mL/hr, Administer over 1 Hours, Once, On Mon04/10/24 at 1450, For 1 dose 1453 (New Bag - Provider: Latonya Nelson, EMT)1553 (Due: Stopped - Provider: Latonya Nelson, EMT) tiotropium (Spiriva Respimat) 2.5 MCG/ACT inhaler 2 puff 2 puff, Inhalation, Daily, First dose on Mon04/11/24 at 0900, Instruct to hold breath for 10 seconds after each inhalation. Before first use, prime inhaler by actuating until aerosal cloud is seen, then actuating 3 more times. 1039 (Given - Provider: Sunitha Qureshi RN) 0829 (Given - Provider: Vicky Maguire RN) tiZANidine (Zanaflex) tablet 4 mg 4 mg, Oral, 3 times daily, First dose on Mon04/10/24 at 2100 2214 (Given - Provider: Ethan Brower RN) 1038 (Given - Provider: Sunitha Qureshi RN)1423 (Given - Provider: Sunitha Qureshi RN)2103 (Given - Provider: Ethan Brower RN) 0828 (Given - Provider: Vicky Maguire RN)1434 (Given - Provider: Vicky Maguire RN) traZODone (Desyrel) tablet 25 mg 25 mg, Oral, Nightly, First dose on Mon04/10/24 at 2100 2213 (Given - Provider: Ethan Brower RN) 2103 (Given - Provider: Ethan Brower RN) PRN Medication Order 04/10/2024 04/11/2024 04/12/2024 acetaminophen (Tylenol) suppository 650 mg(Linked Group 1) 650 mg, Rectal, Every 6 hours PRN, mild pain (1-3), fever, For temp greater than 100.4 F (38 C), Starting on Mon04/10/24 at 2008, Administer if oral route cannot be used. Maximum dose of acetaminophen is 4000 mg from all sources in 24 hours. 05 (See Alternativ e - Provider: Ethan Brower RN) acetaminophen (Tylenol) tablet 650 mg(Linked Group 1) 650 mg, Oral, Every 6 hours PRN, mild pain (1-3), fever, For temp greater than 100.4 F (38 C), Starting on Mon04/10/24 at 2008, Maximum dose of acetaminophen is 4000 mg from all sources in 24 hours. 05 (Given - Provid er: Ethan Brower RN) albuterol 108 (90 Base) MCG/ACT inhaler 2 puff 2 puff, Inhalation, Every 6 hours PRN, wheezing, Starting on Mon04/10/24 at 2107 naloxone (Narcan) injection 0.4 mg 0.4 mg, IntraVENous, Every 5 min PRN, opioid reversal, respiratory depression, Starting on Mon04/10/24 at 2021, +++ For RR <10, pinpoint pupils, over sedation for opioid reversal - MUST notify precision optics technician provider immediately after first dose, may give IM or SQ if no IV access +++ oxyCODONE (Roxicodone) immediate release tablet 10 mg(Linked Group 2) 10 mg, Oral, Every 4 hours PRN, severe pain (7-10), Starting on Mon04/10/24 at 2016 2102 (See Alternative - Provider: Ethan Brower RN) 0611 (See Alternative - Provider: Mar Kaiser RN)1206 (Given - Provider: Vicky Maguire RN)1633 (Given - Provider: Vicky Maguire RN) oxyCODONE (Roxicodone) immediate release tablet 5 mg(Linked Group 2) 5 mg, Oral, Every 4 hours PRN, moderate pain (4-6), Starting on Mon04/10/24 at 2016 2102 (Given - Provider: Ethan Brower RN) 0611 (Given - Provider: Mar Kaiser RN)1206 (See Alternative - Provider: Vicky Maguire RN)1633 (See Alternative - Provider: Vicky Maguire RN) polyethylene glycol (PEG) 3350 (Miralax) packet 17 g 17 g, Oral, Daily PRN, constipation, Starting on Mon04/10/24 at 2008, 1st line for treatment of constipation - give scheduled if no bowel movement in past 24 hours. prochlorperazine (Compazine) injection 5 mg 5 mg, IntraVENous, Every 6 hours PRN, nausea, vomiting, Starting on Mon04/10/24 at 2107 Linked Groups Order Group 1: acetaminophen (Tylenol) tablet 650 mgJump to med 650 mg, Oral, Every 6 hours PRN, mild pain (1-3), fever, For temp greater than 100.4 F (38 C), Starting on Mon04/10/24 at 2008, Maximum dose of acetaminophen is 4000 mg from all sources in 24 hours. Or acetaminophen (Tylenol) suppository 650 mgJump to med 650 mg, Rectal, Every 6 hours PRN, mild pain (1-3), fever, For temp greater than 100.4 F (38 C), Starting on Mon04/10/24 at 2008, Administer if oral route cannot be used. Maximum dose of acetaminophen is 4000 mg from all sources in 24 hours. Group 2: oxyCODONE (Roxicodone) immediate release tablet 5 mgJump to med 5 mg, Oral, Every 4 hours PRN, moderate pain (4-6), Starting on Mon04/10/24 at 2016 Or oxyCODONE (Roxicodone) immediate release tablet 10 mgJump to med 10 mg, Oral, Every 4 hours PRN, severe pain (7-10), Starting on Mon04/10/24 at 2016 Scheduled Medication Order 10/17/2024 10/18/2024 10/19/2024 apixaban (Eliquis) tablet 2.5 mg 2.5 mg, Oral, 2 times daily, First dose on Crissy 10/17/24 at 1445, Anticoagulant 1445 (Not Given - Provider: Tiffany Garcia RN - Reason: Other - Comment: Pt took at [facility] this morning)2018 (Given - Provider: Tiffany Garcia RN) 0938 (Given - Provider: Sheeba López RN)2099 (Given - Provider: Gabriel Boyer, PAOLA) 0847 (Given - Provider: Malathi Stern RN)2099 (Canceled Entry - Provider: Automatic Discharge Provider - Comment: Automatically canceled at discontinue of medication order) aspirin chewable tablet 324 mg (COMPLETED) 324 mg, Oral, Once, On Crissy 10/17/24 at 1220, For 1 dose 1316 (Given - Provider: Tiffany Garcia RN) busPIRone (Buspar) tablet 5 mg 5 mg, Oral, 2 times daily, First dose on Crissy 10/17/24 at 2099 2018 (Given - Provider: Tiffany Garcia RN) 0938 (Given - Provider: Sheeba López RN)2058 (Given - Provider: Gabriel BoyerPAOLA) 0847 (Given - Provider: Malathi Stern RN)2100 (Canceled Entry - Provider: Automatic Discharge Provider - Comment: Automatically canceled at discontinue of medication order) cefTRIAXone (Rocephin) 1,000 mg in sodium chloride 0.9 % 50 mL IVPB Mini-Bag Plus 1,000 mg, IntraVENous, at 100 mL/hr, Administer over 30 Minutes, Every 24 hours, First dose on Crissy 10/17/24 at 1500, Mini-Bag Plus bag, Suspected Indication (Select all that apply): Urinary Tract Infection 1502 (New Bag - Provider: Tiffany Garcia RN)1532 (Stopped - Provider: Christi Connelly, PAOLA) 1421 (New Bag - Provider: Sheeba López RN)1451 (Stopped - Provider: Sheeba López RN) 1407 (New Bag - Provider: Malathi Stern RN)1437 (Stopped - Provider: Malathi Stern RN) enoxaparin (Lovenox) syringe 60 mg (COMPLETED) 60 mg (rounded from 55.8 mg = 1 mg/kg 55.8 kg), SubCUTAneous, Once, On Crissy 10/17/24 at 1220, For 1 dose, Indication of Use: ACS 1316 (Given - Provider: Tiffany Garcia RN) escitalopram (Lexapro) tablet 15 mg 15 mg, Oral, Daily, First dose on Crissy 10/17/24 at 1410 1410 (Not Given - Provider: Christi Connelly RN - Reason: Other - Comment: Pt took this morning at [facility]) 0938 (Given - Provider: Sheeba López RN) 0847 (Given - Provider: Malathi Stern RN) furosemide (Lasix) tablet 20 mg 20 mg, Oral, Daily, First dose on Crissy 10/17/24 at 1410 1410 (Not Given - Provider: Christi Connelly RN - Reason: Other - Comment: Pt took this morning at [facility]) 0938 (Given - Provider: Sheeba López RN) 0847 (Given - Provider: Malathi Stern RN) levothyroxine (Synthroid, Levoxyl) tablet 25 mcg 25 mcg, Oral, Daily before breakfast, First dose on Mon10/18/24 at 0600 0625 (Given - Provider: Erlinda Zapata RN) 0611 (Given - Provider: Gabriel Boyer, PAOLA) losartan (Cozaar) tablet 50 mg 50 mg, Oral, 2 times daily, First dose on Crissy 10/17/24 at 2100 2018 (Given - Provider: Tiffany Garcia RN) 0938 (Given - Provider: Sheeba López, RN)2058 (Given - Provider: Gabriel Boyer, RN) 0847 (Given - Provider: Malathi Stern, PAOLA)2099 (Canceled Entry - Provider: Automatic Discharge Provider - Comment: Automatically canceled at discontinue of medication order) melatonin tablet 10 mg 10 mg, Oral, Nightly, First dose on Crissy 10/17/24 at 2099 2019 (Given - Provider: Tiffany Garcia RN) 2058 (Given - Provider: Gabriel Boyer, PAOLA) 2099 (Canceled Entry - Provider: Automatic Discharge Provider - Comment: Automatically canceled at discontinue of medication order) metoprolol tartrate (Lopressor) tablet 25 mg 25 mg, Oral, 2 times daily, First dose (after last reorder) on Crissy 10/17/24 at 1445 1500 (Given - Provider: Tiffany Garcia RN)2019 (Given - Provider: Tiffany Garcia RN) 0938 (Given - Provider: Sheeba López RN)2058 (Given - Provider: Gabriel Boyer, PAOLA) 0847 (Given - Provider: Malathi Stern, PAOLA)2099 (Canceled Entry - Provider: Automatic Discharge Provider - Comment: Automatically canceled at discontinue of medication order) metoprolol tartrate (Lopressor) tablet 50 mg (COMPLETED) 50 mg, Oral, Once, On Crissy 10/17/24 at 1220, For 1 dose 1316 (Given - Provider: Tiffany Garcia RN) mometasone-formoterol (Dulera 100) 100-5 MCG/ACT inhaler 2 puff 2 puff, Inhalation, 2 times daily, First dose on Crissy 10/17/24 at 2000, Rinse mouth with water after use to reduce aftertaste and incidence of candidiasis. Do not swallow. 2000 (Not Given - Provider: Christi Connelly RN - Reason: Patient/family refused) 1227 (Given - Provider: Sheeba López RN)2100 (Given - Provider: Gabriel Boyer, RN) 0800 (Not Given - Provider: Malathi Stern, PAOLA - Reason: Patient/family refused)1999 (Canceled Entry - Provider: Automatic Discharge Provider - Comment: Automatically canceled at discontinue of medication order) QUEtiapine (SEROquel) tablet 12.5 mg (COMPLETED) 12.5 mg, Oral, Once, On Mon10/18/24 at 2300, For 1 dose 2326 (Given - Provider: Gabriel Boyer, PAOLA) senna-docusate sodium (Senokot-S) 8.6-50 MG tablet 1 tablet 1 tablet, Oral, Daily, First dose on Crissy 10/17/24 at 1410 1410 (Not Given - Provider: Christi Connelly RN - Reason: Contraindicated - Comment: Pt having diarrhea) 0938 (Given - Provider: Sheeba López RN) 0847 (Given - Provider: Malathi Stern RN) spironolactone (Aldactone) tablet 25 mg 25 mg, Oral, Daily, First dose on Crissy 10/17/24 at 1445 1501 (Given - Provider: Tiffany Garcia RN) 0938 (Given - Provider: Sheeba López RN) 0847 (Given - Provider: Malathi Stern RN) tiZANidine (Zanaflex) tablet 4 mg 4 mg, Oral, 3 times daily, First dose on Crissy 10/17/24 at 1410 1501 (Given - Provider: Tiffany Garcia RN)2020 (Given - Provider: Tiffany Garcia RN) 0938 (Given - Provider: Sheeba López RN)1422 (Given - Provider: Sheeba López RN)2100 (Given - Provider: Gabriel Boyer, PAOLA) 0847 (Given - Provider: Malathi Stern, PAOLA)1403 (Given - Provider: Malathi Stern, PAOLA)1999 (Canceled Entry - Provider: Automatic Discharge Provider - Comment: Automatically canceled at discontinue of medication order) traZODone (Desyrel) tablet 25 mg 25 mg, Oral, Nightly, First dose on Mon10/17/24 at 2099 2018 (Given - Provider: Tiffany Garcia, PAOLA) 2058 (Given - Provider: Gabriel Boyer, PAOLA) 2099 (Canceled Entry - Provider: Automatic Discharge Provider - Comment: Automatically canceled at discontinue of medication order) PRN Medication Order 10/17/2024 10/18/2024 10/19/2024 acetaminophen (Tylenol) suppository 650 mg(Linked Group 1) 650 mg, Rectal, Every 6 hours PRN, fever, For temp greater than 100.4 F (38 C), Starting on Crissy 10/17/24 at 1400, Administer if oral route cannot be used. Maximum dose of acetaminophen is 4000 mg from all sources in 24 hours. acetaminophen (Tylenol) tablet 650 mg(Linked Group 1) 650 mg, Oral, Every 6 hours PRN, mild pain (1-3), fever, For temp greater than 100.4 F (38 C), Starting on Crissy 10/17/24 at 1400, Maximum dose of acetaminophen is 4000 mg from all sources in 24 hours. calcium carbonate (Tums) chewable tablet 500 mg 500 mg, Oral, PRN, indigestion, heartburn, Starting on Crissy 10/17/24 at 1408, Indications: Heartburn metoprolol tartrate (Lopressor) injection 5 mg 5 mg, IntraVENous, Every 6 hours PRN, tachycardia, for HR greater than 110, Starting on Crissy 10/17/24 at 1404 ondansetron (Zofran) injection 4 mg(Linked Group 2) 4 mg, IntraVENous, Every 6 hours PRN, nausea, vomiting, Starting on Crissy 10/17/24 at 1400, 1st Line. Give IV if patient is unable to take orally. If inadequate response within 60 minutes, proceed to next-line agent or contact provider if no further options ordered. ondansetron ODT (Zofran-ODT) disintegrating tablet 4 mg(Linked Group 2) 4 mg, Oral, Every 8 hours PRN, nausea, vomiting, Starting on Crissy 10/17/24 at 1400, 1st Line. If inadequate response within 60 minutes, proceed to next-line agent or contact provider if no further options ordered. Patient should allow tablet to dissolve on tongue. Do not remove from blister pack until just before administering. polyethylene glycol (PEG) 3350 (Miralax) packet 17 g 17 g, Oral, Daily PRN, constipation, Starting on Crissy 10/17/24 at 1400, 1st line for treatment of constipation - give scheduled if no bowel movement in past 24 hours. Propylene Glycol-Glycerin (Artificial tears) 1-0.3 % solution 2 drop 2 drop, Both Eyes, Every 2 hour PRN, dry eyes, Starting on Crissy 10/17/24 at 1408 Linked Groups Order Group 1: acetaminophen (Tylenol) tablet 650 mgJump to med 650 mg, Oral, Every 6 hours PRN, mild pain (1-3), fever, For temp greater than 100.4 F (38 C), Starting on Crissy 10/17/24 at 1400, Maximum dose of acetaminophen is 4000 mg from all sources in 24 hours. Or acetaminophen (Tylenol) suppository 650 mgJump to med 650 mg, Rectal, Every 6 hours PRN, fever, For temp greater than 100.4 F (38 C), Starting on Crissy 10/17/24 at 1400, Administer if oral route cannot be used. Maximum dose of acetaminophen is 4000 mg from all sources in 24 hours. Group 2: ondansetron ODT (Zofran-ODT) disintegrating tablet 4 mgJump to med 4 mg, Oral, Every 8 hours PRN, nausea, vomiting, Starting on Crissy 10/17/24 at 1400, 1st Line. If inadequate response within 60 minutes, proceed to next-line agent or contact provider if no further options ordered. Patient should allow tablet to dissolve on tongue. Do not remove from blister pack until just before administering. Or ondansetron (Zofran) injection 4 mgJump to med 4 mg, IntraVENous, Every 6 hours PRN, nausea, vomiting, Starting on Crissy 10/17/24 at 1400, 1st Line. Give IV if patient is unable to take orally. If inadequate response within 60 minutes, proceed to next-line agent or contact provider if no further options ordered. Scheduled Medication Order 10/30/2024 10/31/2024 11/01/2024 apixaban (Eliquis) tablet 2.5 mg 2.5 mg, Oral, 2 times daily, First dose on Mon10/30/24 at 0900, Anticoagulant 0926 (Given - Provider: Janett Roque RN)7315 (Given - Provider: Erlinda Zapata RN) 0916 (Given - Provider: Joana Levi, RN)210 (Given - Provider: Odette Anand, PAOLA) 100 (Given - Provider: Malathi Stern RN)2100 (Canceled Entry - Provider: Automatic Discharge Provider - Comment: Automatically canceled at discontinue of medication order) busPIRone (Buspar) tablet 10 mg 10 mg, Oral, Daily, First dose on Mon11/01/24 at 0945 1005 (Given - Provider: Malathi Stern RN) busPIRone (Buspar) tablet 5 mg (CANCELED) 5 mg, Oral, 2 times daily, First dose on Mon10/30/24 at 0900 0927 (Given - Provider: Janett Roque RN)2229 (Given - Provider: Erlinda Zapata RN) 09 (Given - Provider: Joana Levi, PAOLA)2101 (Given - Provider: Odette Anand RN) 0900 (Not Given - Provider: Malathi Stern RN - Reason: Other) busPIRone (Buspar) tablet 5 mg 5 mg, Oral, Nightly, First dose on Mon11/01/24 at 2100 2100 (Canceled Entry - Provider: Automatic Discharge Provider - Comment: Automatically canceled at discontinue of medication order) donepezil (Aricept) tablet 10 mg 10 mg, Oral, Nightly, First dose on Mon10/30/24 at 2100 2230 (Given - Provider: Erlinda Zapata RN) 2101 (Given - Provider: Odette Anand RN) 2099 (Canceled Entry - Provider: Automatic Discharge Provider - Comment: Automatically canceled at discontinue of medication order) escitalopram (Lexapro) tablet 15 mg 15 mg, Oral, Daily, First dose on Mon10/30/24 at 0900 0926 (Given - Provider: Janett Roque RN) 0915 (Given - Provider: Joana Levi, PAOLA) 1008 (Given - Provider: Malathi Stern, PAOLA) furosemide (Lasix) injection 40 mg (CANCELED) 40 mg, IntraVENous, 2 times daily, First dose on Mon10/30/24 at 1215, For 4 doses 1253 (Given - Provider: Joana Levi RN)2231 (Not Given - Provider: Erlinda Zapata RN - Reason: Patient/family refused) 0916 (Given - Provider: Joana Levi RN) furosemide (Lasix) tablet 40 mg 40 mg, Oral, Daily, First dose on Crissy 10/31/24 at 1230 1333 (Given - Provider: Joana Lvei RN) 1005 (Given - Provider: Malathi Stern, PAOLA) levothyroxine (Synthroid, Levoxyl) tablet 88 mcg 88 mcg, Oral, Daily before breakfast, First dose on Mon10/30/24 at 0600 0558 (Given - Provider: Ana Hayes RN) 0622 (Given - Provider: Erlinda Zapata, PAOLA) 0639 (Given - Provider: Odette Anand, PAOLA) melatonin tablet 3 mg 3 mg, Oral, Nightly, First dose on Mon10/29/24 at 2100 2231 (Given - Provider: Erlinda Zapata RN) 210 (Given - Provider: Odette Anand, PAOLA) 2100 (Canceled Entry - Provider: Automatic Discharge Provider - Comment: Automatically canceled at discontinue of medication order) metoprolol tartrate (Lopressor) tablet 25 mg (CANCELED) 25 mg, Oral, 2 times daily, First dose on Mon10/30/24 at 0900 0927 (Given - Provider: Janett Roque RN) metoprolol tartrate (Lopressor) tablet 25 mg 25 mg, Oral, 3 times daily, First dose (after last modification) on Mon10/30/24 at 1400, Hold SBP <95 mmHg, HR <55 bpm 1400 (Not Given - Provider: Joana Levi RN - Reason: Patient/family refused)2231 (Given - Provider: Erlinda Zapata, PAOLA) 0916 (Given - Provider: Joana Levi RN)1333 (Given - Provider: Joana Levi RN)2102 (Given - Provider: Odette Anand, PAOLA) 1005 (Given - Provider: Malathi Stern, PAOLA)1730 (Given - Provider: Malathi Stern, PAOLA)2100 (Canceled Entry - Provider: Automatic Discharge Provider - Comment: Automatically canceled at discontinue of medication order) morphine injection 2 mg (COMPLETED) 2 mg, IntraVENous, Once, On Mon10/30/24 at 0615, For 1 dose, If oral and IV narcotics ordered, use oral first and only use IV if oral is ineffective or cannot take oral. Do Not give oral and IV within 1 hour of each other unless specifically ordered. 0617 (Given - Provider: Ana Hayes, PAOLA) potassium chloride (Klor-Con) packet 40 mEq (COMPLETED) 40 mEq, Oral, Once, On Mon11/01/24 at 1115, For 1 dose, Dissolve each packet in 4 ounces of water = 5 mEq per 1 oz fluid. 1141 (Given - Provider: Malathi Stern, PAOLA) tiZANidine (Zanaflex) tablet 4 mg (CANCELED) 4 mg, Oral, 3 times daily, First dose on Mon10/30/24 at 0800 0927 (Given - Provider: Janett Roque RN)1253 (Given - Provider: Joana Levi RN)1400 (Canceled Entry - Provider: Joana Levi RN) traZODone (Desyrel) tablet 25 mg 25 mg, Oral, Nightly, First dose on Mon10/30/24 at 2100 2228 (Given - Provider: Erlinda Zapata RN) 2101 (Given - Provider: Odette Anand RN) 2100 (Canceled Entry - Provider: Automatic Discharge Provider - Comment: Automatically canceled at discontinue of medication order) PRN Medication Order 10/30/2024 10/31/2024 11/01/2024 acetaminophen (Tylenol) suppository 650 mg(Linked Group 1) 650 mg, Rectal, Every 6 hours PRN, fever, For temp greater than 100.4 F (38 C), Starting on Mon10/30/24 at 0736, Administer if oral route cannot be used. Maximum dose of acetaminophen is 4000 mg from all sources in 24 hours. acetaminophen (Tylenol) tablet 650 mg(Linked Group 1) 650 mg, Oral, Every 6 hours PRN, mild pain (1-3), fever, For temp greater than 100.4 F (38 C), Starting on Mon10/30/24 at 0736, Maximum dose of acetaminophen is 4000 mg from all sources in 24 hours. calcium carbonate (Tums) chewable tablet 500 mg 500 mg, Oral, PRN, indigestion, heartburn, Starting on Mon10/30/24 at 0319, Indications: Heartburn hydrALAZINE (Apresoline) injection 5 mg (CANCELED) 5 mg, IntraVENous, Every 4 hours PRN, high blood pressure, sbp greater than 160, Starting on Mon10/30/24 at 0432 0444 (Given - Provider: Ana Hayes RN) hydrALAZINE (Apresoline) tablet 25 mg 25 mg, Oral, 4 times daily PRN, SBP>160 mmHg, Starting on Mon10/30/24 at 1202 magnesium sulfate IVPB 4,000 mg(Linked Group 2) 4,000 mg, IntraVENous, at 25 mL/hr, Administer over 4 Hours, PRN, Magnesium Replacement, Starting on Mon10/30/24 at 0800, Mg Lab Replacement Action 1.4-1.6 2 gram IVPB x 1 doses (2 grams total) 1.0-1.3 4 gram IVPB x 1 doses (4 grams total) Less than 1.0 CALL PHYSICIAN and 4 gram IVPB x 1 doses (4 grams total) Infuse at 1 gram/hr. Repeat Mag level next AM. Not for use in Patients with CrCl less than 30 mL/min. magnesium sulfate IVPB premix 2,000 mg(Linked Group 2) 2,000 mg, IntraVENous, at 25 mL/hr, Administer over 2 Hours, PRN, Magnesium Replacement, Starting on Mon10/30/24 at 0800, Mg Lab Replacement Action 1.4-1.6 2 gram IVPB x 1 doses (2 grams total) 1.0-1.3 4 gram IVPB x 1 doses (4 grams total) Less than 1.0 CALL PHYSICIAN and 4 gram IVPB x 1 doses (4 grams total) Infuse at 1 gram/hr. Repeat Mag level next AM. Not for use in Patients with CrCl less than 30 mL/min. ondansetron (Zofran) injection 4 mg 4 mg, IntraVENous, Every 4 hours PRN, nausea, vomiting, Starting on Mon10/30/24 at 0159 0213 (Given - Provider: Ana Hayes RN) polyethylene glycol (PEG) 3350 (Miralax) packet 17 g 17 g, Oral, Daily PRN, constipation, Starting on Mon10/30/24 at 0736, 1st line for treatment of constipation - give scheduled if no bowel movement in past 24 hours. potassium chloride (Klor-Con) packet 40 mEq(Linked Group 3) 40 mEq, Oral, PRN, Per Potassium Replacement Protocol, Starting on Mon10/30/24 at 0739, Administer as alternative if patient unable to tolerate oral tablet. K Lab Replacement Action 3.1 to 3.5 40 mEq ORAL x 1 Under 3.1 Refer to IV replacement protocol Recheck K level in AM. Protocol not for use in patients with CrCl less than 30 mL/min. Dissolve each packet in 4 ounces of water = 5 mEq per 1 oz fluid. potassium chloride 40 mEq in sodium chloride 0.9 % 500 mL IVPB(Linked Group 3) 40 mEq, IntraVENous, at 130 mL/hr, Administer over 4 Hours, PRN, Per Potassium Replacement Protocol, Starting on Mon10/30/24 at 0739, K Lab Replacement Action 2.7 to 3.0 40 mEq in 500 mL IVPB Under 2.7 CALL PROVIDER and administer 40 mEq in 500 mL IVPB Infuse at 10 mEq/hr. Repeat Potassium lab 1 hour after final administration. Protocol not for use in patients with CrCl less than 30 mL/min. potassium chloride CR (Klor-Con M10) ER tablet 40 mEq(Linked Group 3) 40 mEq, Oral, PRN, Per Potassium Replacement Protocol, Starting on Mon10/30/24 at 0739, May give alternative linked oral order (ordered as effervescent, packet, or liquid solution) if patient unable to tolerate tablet. K Lab Replacement Action 3.1 to 3.5 40 mEq ORAL x 1 Under 3.1 Refer to IV replacement protocol Recheck K level in AM. Protocol not for use in patients with CrCl less than 30 mL/min. Do not crush or chew. QUEtiapine (SEROquel) tablet 12.5 mg 12.5 mg, Oral, 2 times daily PRN, agitation, Starting on Crissy 10/31/24 at 1652 1900 (Given - Provider: Joana Levi RN) 0204 (Given - Provider: Oedtte Anand RN) tiZANidine (Zanaflex) tablet 4 mg 4 mg, Oral, 3 times daily PRN, muscle spasms, Starting on Mon10/30/24 at 1715 1659 (Given - Provider: Joana Levi, RN)2101 (Given - Provider: Odette Anand RN) Linked Groups Order Group 1: acetaminophen (Tylenol) tablet 650 mgJump to med 650 mg, Oral, Every 6 hours PRN, mild pain (1-3), fever, For temp greater than 100.4 F (38 C), Starting on Mon10/30/24 at 0736, Maximum dose of acetaminophen is 4000 mg from all sources in 24 hours. Or acetaminophen (Tylenol) suppository 650 mgJump to med 650 mg, Rectal, Every 6 hours PRN, fever, For temp greater than 100.4 F (38 C), Starting on Mon10/30/24 at 0736, Administer if oral route cannot be used. Maximum dose of acetaminophen is 4000 mg from all sources in 24 hours. Group 2: magnesium sulfate IVPB premix 2,000 mgJump to med 2,000 mg, IntraVENous, at 25 mL/hr, Administer over 2 Hours, PRN, Magnesium Replacement, Starting on Mon10/30/24 at 0800, Mg Lab Replacement Action 1.4-1.6 2 gram IVPB x 1 doses (2 grams total) 1.0-1.3 4 gram IVPB x 1 doses (4 grams total) Less than 1.0 CALL PHYSICIAN and 4 gram IVPB x 1 doses (4 grams total) Infuse at 1 gram/hr. Repeat Mag level next AM. Not for use in Patients with CrCl less than 30 mL/min. Or magnesium sulfate IVPB 4,000 mgJump to med 4,000 mg, IntraVENous, at 25 mL/hr, Administer over 4 Hours, PRN, Magnesium Replacement, Starting on Mon10/30/24 at 0800, Mg Lab Replacement Action 1.4-1.6 2 gram IVPB x 1 doses (2 grams total) 1.0-1.3 4 gram IVPB x 1 doses (4 grams total) Less than 1.0 CALL PHYSICIAN and 4 gram IVPB x 1 doses (4 grams total) Infuse at 1 gram/hr. Repeat Mag level next AM. Not for use in Patients with CrCl less than 30 mL/min. Group 3: potassium chloride CR (Klor-Con M10) ER tablet 40 mEqJump to med 40 mEq, Oral, PRN, Per Potassium Replacement Protocol, Starting on Mon10/30/24 at 0739, May give alternative linked oral order (ordered as effervescent, packet, or liquid solution) if patient unable to tolerate tablet. K Lab Replacement Action 3.1 to 3.5 40 mEq ORAL x 1 Under 3.1 Refer to IV replacement protocol Recheck K level in AM. Protocol not for use in patients with CrCl less than 30 mL/min. Do not crush or chew. Or potassium chloride (Klor-Con) packet 40 mEqJump to med 40 mEq, Oral, PRN, Per Potassium Replacement Protocol, Starting on Mon10/30/24 at 0739, Administer as alternative if patient unable to tolerate oral tablet. K Lab Replacement Action 3.1 to 3.5 40 mEq ORAL x 1 Under 3.1 Refer to IV replacement protocol Recheck K level in AM. Protocol not for use in patients with CrCl less than 30 mL/min. Dissolve each packet in 4 ounces of water = 5 mEq per 1 oz fluid. Or potassium chloride 40 mEq in sodium chloride 0.9 % 500 mL IVPBJump to med 40 mEq, IntraVENous, at 130 mL/hr, Administer over 4 Hours, PRN, Per Potassium Replacement Protocol, Starting on Mon10/30/24 at 0739, K Lab Replacement Action 2.7 to 3.0 40 mEq in 500 mL IVPB Under 2.7 CALL PROVIDER and administer 40 mEq in 500 mL IVPB Infuse at 10 mEq/hr. Repeat Potassium lab 1 hour after final administration. Protocol not for use in patients with CrCl less than 30 mL/min. Scheduled Medication Order 01/06/2025 01/07/2025 01/08/2025 apixaban (Eliquis) tablet 5 mg 5 mg, Oral, 2 times daily, First dose (after last modification) on Mon01/06/25 at 2100, Anticoagulant 2235 (Given - Provider: Chrissy Krishnan RN) 0834 (Given - Provider: Joana Garcia LPN)2000 (Given - Provider: Chrissy Krishnan RN) 0741 (Given - Provider: Joana Garcia LPN) busPIRone (Buspar) tablet 5 mg 5 mg, Oral, 3 times daily, First dose on Mon01/07/25 at 1630 1708 (Given - Provider: Joana Garcia LPN)1999 (Given - Provider: Chrissy Krishnan RN) 0741 (Given - Provider: Joana Garcia LPN)1320 (Given - Provider: Joana Garcia LPN) cefTRIAXone (Rocephin) 1,000 mg in sodium chloride 0.9 % 50 mL IVPB Mini-Bag Plus (COMPLETED) 1,000 mg, IntraVENous, at 100 mL/hr, Administer over 30 Minutes, Once, On Mon01/06/25 at 0310, For 1 dose, Mini-Bag Plus bag, Suspected Indication (Select all that apply): Urinary Tract Infection 0355 (New Bag - Provider: Alysa Lugo RN)0420 (Stopped - Provider: Ginger Patrick RN) cefTRIAXone (Rocephin) 1,000 mg in sodium chloride 0.9 % 50 mL IVPB Mini-Bag Plus 1,000 mg, IntraVENous, at 100 mL/hr, Administer over 30 Minutes, Every 24 hours, First dose on Mon01/07/25 at 0000, Mini-Bag Plus bag, Suspected Indication (Select all that apply): Urinary Tract Infection 0059 (New Bag - Provider: Chrissy Krishnan RN)0234 (Stopped - Provider: Chrissy Krishnan RN) 0042 (New Bag - Provider: Chrissy Krishnan RN)0158 (Stopped - Provider: Chrissy Krishnan RN) donepezil (Aricept) tablet 10 mg 10 mg, Oral, Nightly, First dose on Mon01/06/25 at 2100 2235 (Given - Provider: Chrissy Krishnan RN) 1999 (Given - Provider: Chrissy Krishnan RN) escitalopram (Lexapro) tablet 15 mg 15 mg, Oral, Daily, First dose on Mon01/06/25 at 1045 1216 (Given - Provider: Luana Kiran RN) 0834 (Given - Provider: Joana Garcia LPN) 0741 (Given - Provider: Joana Garcia LPN) levothyroxine (Synthroid, Levoxyl) tablet 88 mcg 88 mcg, Oral, Daily before breakfast, First dose (after last modification) on Mon01/07/25 at 0600 0522 (Given - Provider: Chrissy Krishnan RN) 0501 (Given - Provider: Chrissy Krishnan RN) melatonin tablet 3 mg 3 mg, Oral, Nightly, First dose on Mon01/07/25 at 2100 2000 (Given - Provider: Chrissy Krishnan RN) metoprolol tartrate (Lopressor) tablet 25 mg 25 mg, Oral, 2 times daily, First dose on Mon01/06/25 at 1045 1216 (Given - Provider: Luana Kiran, PAOLA)2235 (Given - Provider: Chrissy Krishnan RN) 0834 (Given - Provider: Joana Garcia LPN)2000 (Given - Provider: Chrissy Krishnan RN) 0741 (Given - Provider: Joana Garcia LPN) morphine injection 2 mg 2 mg, IntraVENous, Once, On Mon01/06/25 at 0005, For 1 dose, If oral and injectable narcotics ordered, use oral first and only use injectable if oral is ineffective or cannot take oral. Do Not give oral and injectable within 1 hour of each other unless specifically ordered. 0207 (Not Given - Provider: Alysa Lugo RN - Reason: Patient/family refused - Comment: Patient refused stating she is not in any pain) ondansetron (Zofran) injection 4 mg (COMPLETED) 4 mg, IntraVENous, Once, On Mon01/06/25 at 0040, For 1 dose 0118 (Given - Provider: Ginger Patrick RN) senna-docusate sodium (Senokot-S) 8.6-50 MG tablet 2 tablet (CANCELED) 2 tablet, Oral, Daily, First dose on Mon01/06/25 at 1100 1216 (Given - Provider: Luana Kiran RN) 0834 (Given - Provider: Joana Garcia LPN) senna-docusate sodium (Senokot-S) 8.6-50 MG tablet 2 tablet 2 tablet, Oral, 2 times daily, First dose (after last modification) on Mon01/07/25 at 2100 2000 (Given - Provider: Chrissy Krishnan RN) 0741 (Given - Provider: Joana Garcia LPN) sodium chloride 0.9 % bolus 1,000 mL (COMPLETED) 1,000 mL, IntraVENous, at 1,000 mL/hr, Administer over 1 Hours, Once, On Mon01/06/25 at 0040, For 1 dose 0118 (New Bag - Provider: Ginger Patrick, RN)0420 (Stopped - Provider: Ginger Patrick RN) PRN Medication Order 01/06/2025 01/07/2025 01/08/2025 acetaminophen (Tylenol) suppository 650 mg(Linked Group 1) 650 mg, Rectal, Every 6 hours PRN, fever, For temp greater than 100.4 F (38 C), Starting on Mon01/06/25 at 1034, Administer if oral route cannot be used. Maximum dose of acetaminophen is 4000 mg from all sources in 24 hours. 1534 (See Alternative - Provider: Luana Kiran RN) acetaminophen (Tylenol) tablet 650 mg(Linked Group 1) 650 mg, Oral, Every 6 hours PRN, mild pain (1-3), fever, For temp greater than 100.4 F (38 C), Starting on Mon01/06/25 at 1034, Maximum dose of acetaminophen is 4000 mg from all sources in 24 hours. 1534 (Given - Provider: Luana Kiran RN) iopamidol (Isovue-370) 76 % injection 75 mL (COMPLETED) 75 mL, IntraVENous, IMG once PRN, contrast, Starting on Mon01/06/25 at 0216, For 1 dose 0217 (Given - Provider: Gail Mayo, RT (R)(CT)) ondansetron (Zofran) injection 4 mg(Linked Group 2) 4 mg, IntraVENous, Every 6 hours PRN, nausea, vomiting, Starting on Mon01/06/25 at 1034, 1st Line. Give IV if patient is unable to take orally. If inadequate response within 60 minutes, proceed to next-line agent or contact provider if no further options ordered. ondansetron ODT (Zofran-ODT) disintegrating tablet 4 mg(Linked Group 2) 4 mg, Oral, Every 8 hours PRN, nausea, vomiting, Starting on Mon01/06/25 at 1034, 1st Line. If inadequate response within 60 minutes, proceed to next-line agent or contact provider if no further options ordered. Patient should allow tablet to dissolve on tongue. Do not remove from blister pack until just before administering. Petrolatum ointment Topical, 2 times daily PRN, dry skin, Starting on Mon01/06/25 at 1625, Apply to legs polyethylene glycol (PEG) 3350 (Miralax) packet 17 g 17 g, Oral, Daily PRN, constipation, Starting on Mon01/06/25 at 1034, 1st line for treatment of constipation - give scheduled if no bowel movement in past 24 hours. Linked Groups Order Group 1: acetaminophen (Tylenol) tablet 650 mgJump to med 650 mg, Oral, Every 6 hours PRN, mild pain (1-3), fever, For temp greater than 100.4 F (38 C), Starting on Mon01/06/25 at 1034, Maximum dose of acetaminophen is 4000 mg from all sources in 24 hours. Or acetaminophen (Tylenol) suppository 650 mgJump to med 650 mg, Rectal, Every 6 hours PRN, fever, For temp greater than 100.4 F (38 C), Starting on Mon01/06/25 at 1034, Administer if oral route cannot be used. Maximum dose of acetaminophen is 4000 mg from all sources in 24 hours. Group 2: ondansetron ODT (Zofran-ODT) disintegrating tablet 4 mgJump to med 4 mg, Oral, Every 8 hours PRN, nausea, vomiting, Starting on Mon01/06/25 at 1034, 1st Line. If inadequate response within 60 minutes, proceed to next-line agent or contact provider if no further options ordered. Patient should allow tablet to dissolve on tongue. Do not remove from blister pack until just before administering. Or ondansetron (Zofran) injection 4 mgJump to med 4 mg, IntraVENous, Every 6 hours PRN, nausea, vomiting, Starting on Mon01/06/25 at 1034, 1st Line. Give IV if patient is unable to take orally. If inadequate response within 60 minutes, proceed to next-line agent or contact provider if no further options ordered. Source Comments (unrecognize d section and content) In the event this informatio n is protected by the Federal Confidentiality of Alcohol and Drug Abuse Patient Records regulations: The Federal rules restrict any use of the information to criminally investigate or prosecute any alcohol or drug abuse patient.[facility] INFORMATION SOURCE (unrecogn ized section and content) DATE CREATED AUTHOR 08/30/2024 [facility] DATE CREATED AUTHOR AUTHOR'S ORGANIZ ATION 01/14/2025 [facility] DATE CREATED AUTHOR AUTHOR'S ORGANIZ ATION 01/23/2025 [facility] FOR RECORDS PERTAINING TO PATIENTS WHO ARE OR HAVE BEEN ENROLLED IN A CHEMICAL DEPENDENCY/SUBSTANCEABUSE PROGRAM, SOME INFORMATION MAY BE OMITTED. This clinical summary was aggregated from multiple sources. Caution should be exercised in using it in the provision of clinical care. This summary normalizes information from multiple sources, and as a consequence, information in this document may materially change the coding, format and clinical context of patient data. In addition, data may be omitted in some cases. CLINICAL DECISIONS SHOULD BE BASED ON THE PRIMARY CLINICAL RECORDS. [email or web address] [facility]. provides no warranty or guarantee of the accuracy or completeness of information in this document.
[2025-01-29 08:36] LABS: ALB/GLOB Ratio 1.1 RATIO (0.9-2.4); AST(SGOT) 31 U/L (<=31); Alanine Aminotransfer ALT/SGPT 15 U/L (<=34); Albumin, Serum 3.8 g/dL (3.4-4.8); Alkaline Phosphatase 88 U/L (35-104); Anion Gap 10 (5-15); BUN 25 mg/dL (4-19); BUN/Creat Ratio 25.4 RATIO (10-20); Calcium,Total 9.9 mg/dL (7.6-11.0); Carbon Dioxide 24.3 mmol/L (21.0-32.0); Chloride 102 mmol/L (98-108); EST Glomerular Filtration Rate 56 (>60); Globulin 3.5 g/dL (2.2-4.2); Glucose 86 mg/dL (70-99); Potassium 4.4 mmol/L (3.3-5.1); Protein, Total 7.4 g/dL (5.9-8.4); Sodium Level 135 mmol/L (133-145); Total Bilirubin 0.74 mg/dL (0.00-1.30)
== END ==
LOC: OLS.ACW100 05:00
PROVIDERS: Visit Provider Family Medicine
DX: I50.23 Acute on chronic systolic (congestive) heart failure (principal)
CPT/HCPCS: 36415; 80053

== ENCOUNTER → 2025-03-21 05:00 | Outpatient (REF) | payer MEDICARE, MEDICAID, SELFPAY ==
--- OUTSIDE RECORDS SUMMARY | 2025-03-21 04:16 | XMS RPT_ITS | CCD ---
Author Organization [facility] Care Team Providers Care Kinder Teacher Name Role Phone System, [facility] Primary Care Provider Kathi Juarez MD Primary Care Provider Kathi Juarez MD Primary Care Provider ROYER ZAMBRANO Referring Unavailable JOAAN WILSON Attending Unavailable Kathi Melissa Attending Provider UnavailKathi Ramirez Referring [facility] Attending Provider U navailable KATHI JUAREZ Primary Care Unavailable PHILL FORTE Admitting Unavailable PHILL FORTE Attending Unavailable KATHI JUAREZ Primary Care Unavailable MIS OLVERA Attending Unavailable MIS OLVERA Admitting Unavailable KATHI JUAREZ Primary Care Unavailable TORIBIO SHEPHERD Admitting Unavailable AG TRENT Attending Unavailable KATHI JUAREZ Primary Care Unavailable MARCOS ARAUJO Attending Unavailable KATHI JUAREZ Primary Care Unavailable DESHAWN SHANNON Attending Unavailable TEVIN WHALEY Consulting Unavailable DESHAWN SHANNON Admitting Unavailable KATHI JUAREZ Primary Care Unavailable AG MENG Attending Unavailable TEVIN CONNER Attending Unavailable MARCOS ARAUJO Referring Unavailable KATHI JUAREZ Primary Care Unavailable Kathi Melissa Attending Unavailable Kathi Melissa Referring Unavailable Kathi Melissa Attending Unavailable Kathi Melissa Referring Unavailable Kathi Melissa Attending Unavailable [facility] Attending Unav ailable Kathi Melissa Attending Unavailable Kathi Melissa Attending Unavailable Kathi Melissa Attending Unavailable Kathi Melissa Attending Unavailable Kathi Melissa Attending Unavailable Kathi Melissa Referring Unavailable Kathi Melissa Attending Unavailable Kathi Melissa Referring Unavailable Ann KULKARNI, Kathi Attending Unavailable Ann KULKARNI, Kathi Attending Unavailable Ann KULKARNI, Kathi Attending Unavailable Ann KULKARNI, Kathi Attending Unavailable Ann KULKARNI, Kathi Attending Unavailable Allergies Allergy Classification Reported Allergen(s) Allergy Type Date of Onset Reaction(s) Facility (14 sources) gabapentin Drug Allergy 04-10-2024 Intolerance [facility] (14 sources) Propoxyphene Drug Allergy 04-10-2024 Intolerance [facility] (7 sources) Doxycycline Drug Allergy 12-02-2013 [facility] Medications Current Medications Medication Drug Class(es) Dates Sig (Normalized) Sig (Original) biotin 5 mg oral capsule (13 sources) take 1 capsule by mouth once daily biotin 5 MG capsule Take 5 mg by mouth daily. Active Calcium Carbonate / vitamin D3 (1 source) calcium carbonate/vitamin D3 (OYSTER SHELL + D3 ORAL) Take by mouth. Active carboxymethylcellulose sodium 5 mg/ml ophthalmic solution (13 sources) take 2 drop(s) into the eye(s) in the morning carboxymethylcellulose (Refresh Plus) 0.5 % ophthalmic solution Administer 2 drops into both eyes in the morning and 2 drops in the evening. Active cephalexin 500 mg oral capsule (2 sources) Cephalosporin Antibacterial Start: End: take 1 capsule by mouth twice daily cephalexin (Keflex) 500 MG capsule Take 1 capsule (500 mg) by mouth 2 times daily for 7 days. 14 capsule 02/18/2025 12:57 PM EDT 02/18/2025 02/25/2025 Active docusate sodium 50 mg / sennosides, alf 8.6 mg oral tablet (18 sources) Start: End: take 2 tablets by mouth twice daily as needed for constipation senna-docusate sodium (Senokot-S) 8.6-50 MG tablet Take 2 tablets by mouth 2 times daily as needed for constipation for up to 10 days. 40 tablet 01/08/2025 01/18/2025 Active Start: 01-06-2025 End: 01-07-2025 take 2 tablets by mouth once daily 2 tablet, Oral, Kusum ly, First dose on Mon01/06/25 at 1100 Start: 04-10-2024 End: 11-01-2024 take 1 tablet by mouth once daily 1 tablet, Oral, Hayley y, First dose on Mon10/17/24 at 1410 60 actuat fluticasone propionate 0.5 mg/actuat / salmeterol 0.05 mg/actuat dry powder inhaler (14 sources) Corticosteroid, beta2-Adrenergic Agonist take 1 puff(s) [...] at 1410 hydrocortisone 20 mg/ml topical lotion (4 sources) Corticosteroid Hydrocortisone 2 % lotion Apply topically. Active ibuprofen 200 mg oral tablet (1 source) Nonsteroidal Anti-inflammatory Drug take 1 tablet by mouth every six hours as needed ibuprofen (ADVIL) 200 mg tablet Take 200 mg by mouth every 6 hours as needed. Active lanolin alcohol/mo/w.pet/ceres (EUCERIN TOPICAL) (1 source) lanolin alcohol/mo/w.pet/cere s (EUCERIN TOPICAL) Apply to affected area. Active metoprolol tartrate 25 mg oral tablet (20 sources) beta-Adrenergic Neto Start: 025 End: 025 take 1 tablet by mouth three times [...] 50 MG tablet Take by mouth. Active multivit-min/iron/folic acid/K (MULTI-DAY PLUS MINERALS ORAL) (1 source) multivit-min/iro n/folic acid/K (MULTI-DAY PLUS MINERALS ORAL) Take by mouth. Active mupirocin 0.02 mg/mg topical ointment (4 sources) RNA Synthetase Inhibitor Antibacterial mupirocin (Bactroban ) 2 % ointment Apply topically three times daily. Active oxyCODONE hydrochloride 5 mg oral tablet (4 sources) Opioid Agonist Star t: 03-22 End: 03-22 take 1 tablet by mouth every four hours as needed for pain oxyCODONE (Roxicodone) 5 MG immediate release tablet Indications: Closed fracture of first lumbar vertebra, unspecified fracture morphology, initial encounter ([facility]) Take 1 tablet (5 mg) by mouth every 4 hours as needed for moderate pain (4-6) for up to 5 days. 04/12/2024 04/17/2024 Active Start: 04-10-2024 End: 04-12-2024 take 1 tablet by mouth every four hours as needed for pain oxyCODONE (Roxicodone) immediate release tablet 5 mg potassium chloride 1.33 meq/ml oral solution (15 sources) Start: 11-01-2024 End: 11-08-2024 take 15 [...] 325 mg cap Take by mouth. Active [id number] 200 actuat albuterol 0.09 mg/actuat metered dose inhaler (2 sources) beta2-Adrenergic Agonist Start: 04-10-2024 End: 04-12-2024 take 2 puff(s) by inhalation every six hours as needed for wheezing 2 puff, Inhalation, Every 6 hours PRN, wheezing, Starting on Mon04/10/24 at 2108 apixaban 5 mg oral tablet (18 sources) Factor Xa Inhibitor Start: 01-06-2025 End: [...] calcium carbonate 500 mg rayshawn wable tablet (18 sources) Start: 10-30-2024 End: 11-01-2024 Start: 10-17-2024 End: 10-19-2024 calcium carbonat e (TUMS ORAL) Take by mouth. Active cefTRIAXone (Rocephin) 1,000 mg in sodium chloride 0.9 % 50 mL IVPB Mini-Bag Plus (8 sources) Start: 02-18-2025 End: 02-18-2025 1,000 mg, IntraVENous, at 10 0 mL/hr, Administer over 30 Minutes, Once, On Mon02/18/25 at 1005, For 1 dose, Mini-Bag Plus bag, Suspected Indication (Select all that apply): Urinary Tract Infection Start: 01-07-2025 End: 01-08-2025 1,000 mg, IntraVENous, [...] discharge) donepezil hydrochloride 10 mg oral tablet (16 sources) Start: 01-06-2025 End: 01-08-2025 take 10 [...] mouth daily. Active take 1 tablet by keren th once daily escitalopram oxalate (LEXAPRO) 20 mg [...] iopamidol (Isovue-370) 76 % injection 75 mL (4 sources) Start: 02-18-2025 End: 02-18-2025 take 75 mL intravenously once as needed 75 mL, IntraVENous, IMG once PRN, contrast, Starting on Mon02/18/25 at 1106, For 1 dose Start: 01-06-2025 End: 01-06-2025 take 75 mL intravenously once as needed 75 mL, IntraVENous, IMG once PRN, contrast, Starting on Mon01/06/25 at 0216, For 1 dose levothyroxine sodium 0.088 mg oral tablet (20 sources) l-Thyroxine Start: 01-07-2025 End: 01-08-2025 take 88 ug [...] Mon04/11/24 at 0600 take 1 capsule by [facility] once daily before breakfast levothyroxine (Tirosint) 88 [...] mg c apsules Take by mouth. Active 1 ml morphine [...] dose 2 ml ondansetron 2 mg/ml injection (6 sources) Serotonin-3 Receptor Antagonist Start: 02-18-2025 End: 02-18-2025 4 mg, IntraVENous, Once, On Mon02/18/25 at 0855, For 1 dose Start: 01-06-2025 End: 01-06-2025 4 mg, IntraVENous, [...] 1625, Apply to legs polyethylene glycol 3350 [id number] mg powder for oral solution (20 sources) [...] On Mon10/18/24 at 2300, For 1 dose 50 ml sodium chloride 9 mg/m l injection (8 sources) Start: 02-18-2025 End: 02-18-2025 1,000 mL, IntraVENous, at 1, 000 mL/hr, Administer over 1 Hours, Once, On Mon02/18/25 at 0855, For 1 dose Start: 01-06-2025 End: 01-06-2025 1,000 mL, IntraVENous, [...] at discharge) spironolactone 25 mg oral tablet (12 sources) Aldosterone Antagonist Start: 10-17-2024 End: 10-20-2025 take 1 tablet by mouth once daily spironolactone (Aldactone) 25 MG tablet Take 1 tablet (25 mg) by mouth daily. 10/20/2024 11/01/2024 Discontinued (Stop taking at discharge) 10 actuat tiotropium 0.0025 mg/actuat inhalation spray (2 sources) Anticholinergic Start: 04-11-2024 End: 04-12-2024 2 puff, Inhalation, Daily, First dose on [...] times daily, First dose on Mon04/10/24 at 2099 traZODone hydrochloride 50 mg oral tablet (19 sources) Serotonin Reuptake Inhibitor Start: 10-30-2024 End: 11-01-2024 take 25 mg by mouth once daily 25 mg, Oral, Nightly, First dose on Mon10/30/24 at 2099 Start: 10-17-2024 End: 10-19-2024 take 25 mg by mouth once daily 25 mg, Oral, Nightly, F irst dose on Mon10/17/24 at 2099 Start: 04-10-2024 End: 04-12-2024 take 25 mg by mouth once daily 25 mg, Oral, Nightly, F irst dose on Mon04/10/24 at 2099 traZODone (Desyr el) 50 MG tablet Take 25 mg by mouth Nightly. Active Problems Active Problems Problem Classification Problem Date Documented Da te Episodic/Chronic Acute myocardial infarction (4 sources) Myocardial infarction; Translations: [Non-ST elevation (NSTEMI) myocardial infarction] Onset: 10-17-2024 10-17-2024 Chronic Anxiety disorders (7 sources) Anxiety state; Translations: [Generalized anxiety disorder] Onset: 07-28-2014 10-30-2024 Chronic Cardiac dysrhythmias (20 sources) Atrial fibrillation; Translations: [Unspecified atrial fibrillation] Onset: 10-17-2024 Resolved: 10-30-2024 08-23-2024 Chronic Congestive heart failure; nonhypertensive (17 sources) Acute heart failure; Translations: [Heart failure, unspecified] Onset: 10-29-2024 10-29-2024 Chronic Delirium, dementia, and amnestic and other cognitive disorders (18 sources) Dementia; Translations: [Unspecified dementia without behavioral disturbance] Onset: 08-02-2022 10-24-2024 Chronic Disorders of lipid metabolism (7 sources) Pure hypercholesterolemi a; Translations: [Pure hypercholesterolemi a, unspecified] Onset: 10-30-2024 10-30-2024 Chronic Essential hypertension (14 sources) Hypertensive disorder; Translations: [Essential (primary) hypertension] Onset: 08-23-2024 08-19-2024 Chronic Fluid and electrolyte disorders (4 sources) Dehydration; Translations: [Dehydration] Onset: 02-18-2025 02-18-2025 Episodic Malaise and fatigue (15 sources) Asthenia; Translations: [Other malaise] Onset: 10-30-2024 10-30-2024 Episodic Mood disorders (7 sources) Depressive disorder; Translations: [Depressive disorder] Onset: 10-30-2024 10-30-2024 Chronic Nausea and vomiting (4 sources) Nausea; Translations: [Nausea] Onset: 02-18-2025 02-18-2025 Episodic Other ear and sense organ disorders [...] encounter for closed fracture] 04-10-2024 Episodic Other fractures (1 source) Stable burst fracture of first lumbar vertebra, subsequent encounter for fracture with routine healing; Translations: [Stable burst fracture of first lumbar vertebra, subsequent encounter for fracture with routine healing] Onset: 03-06-2025 Episodic Other gastrointestinal disorders (3 sources) Slow transit constipation; Translations: [Slow transit constipation] Onset: 01-05-2025 01-07-2025 Episodic Other gastrointestinal disorders (6 sources) History of pancreatitis; Translations: [Personal history of other diseases of the digestive system] Onset: 01-06-2025 01-06-2025 Episodic Other nervous system disorders (9 sources) Cognitive deficit in communication skills; Translations: [Cognitive communication deficit] Onset: 12-22-2023 10-24-2024 Chronic Other nervous system disorders (2 sources) Unspecified lack of coordination; Translations: [Unspecified lack of coordination] Onset: 01-29-2025 Episodic Other screening for suspected conditions (not mental disorders or infectious disease) (4 sources) Raised cardiac enzyme or marker; Translations: [Other specified abnormal findings of blood chemistry] Onset: 02-18-2025 02-18-2025 Episodic Otitis media and related conditions (3 sources) Chronic eustachian tube salpingitis; Translations: [Chronic Eustachian salpingitis, unspecified ear] 11-22-2023 Chronic Pancreatic disorders (not diabetes) (11 sources) Acute pancreatitis; Translations: [Acute pancreatitis without necrosis or infection, unspecified] Onset: 01-05-2025 01-06-2025 Episodic Residual codes; unclassified (2 sources) Restlessness and agitation; Translations: [Restlessness and agitation] Onset: 01-30-2025 Chronic Residual codes; unclassified (2 sources) Delirium; Translations: [Disorientation, unspecified] 01-07-2025 Episodic Residual codes; unclassified (2 sources) Disorientation, unspecified; Translations: [Disorientation, unspecified] Onset: 01-05-2025 Episodic Thyroid disorders (8 sources) Hypothyroidism; Translations: [Hypothyroidism, unspecified] Onset: 10-30-2024 10-30-2024 Chronic Unclassified (2 sources) Permanent atrial fibrillation; Translations: [Permanent atrial fibrillation (HCC)] Onset: 11-19-2024 Unclassified (1 source) Low back pain, unspecified; Translations: [Low back pain, unspecified] Onset: 04-10-2024 Unclassified (2 sources) Chronic atrial fibrillation, unspecified; Translations: [Chronic atrial fibrillation, unspecified] Onset: 01-30-2025 Urinary tract infections (4 sources) Urinary tract infectious disease; Translations: [Urinary tract infection, site not specified] Onset: 02-18-2025 02-18-2025 Episodic Past or Other Problems Problem Classification Problem Date Documented Da te Episodic/Chronic Administrative/social admission (3 sources) First encounter by subject; Translations: [Persons encountering health services in other specified circumstances] Onset: 11-19-2024 11-19-2024 Episodic Cardiac dysrhythmias (4 sources) Bradycardia; Translations: [Bradycardia, unspecified] Onset: 04-10-2024 04-10-2024 Episodic Nonspecific chest pain (4 sources) Chest pain; Translations: [Chest pain, unspecified] Onset: 10-17-2024 10-17-2024 Episodic Other and unspecified benign neoplasm (7 sources) History of polyp of colon; Translations: [History of colonic polyps] Onset: 03-19-2020 10-30-2024 Episodic Other bone disease and musculoskeletal deformities (7 sources) Osteopenia; Translations: [Other specified disorders of bone density and structure, unspecified site] Onset: 03-19-2020 10-30-2024 Episodic Other bone disease and musculoskeletal deformities (7 sources) Disorder of bone and articular cartilage; Translations: [Disorder of bone, unspecified] Onset: 10-30-2024 10-30-2024 Episodic Other ear and sense organ disorders (7 sources) Bilateral tinnitus; Translations: [Tinnitus, bilateral] Onset: 03-19-2020 10-30-2024 Episodic Other fractures (2 sources) Unspecified fracture of first lumbar vertebra, initial encounter for closed fracture; Translations: [Unspecified fracture of first lumbar vertebra, initial encounter for closed fracture (HCC)] Onset: 04-10-2024 Episodic Other gastrointestinal disorders (7 sources) Constipation; Translations: [Constipation, unspecified] Onset: 08-10-2022 10-30-2024 Episodic Other gastrointestinal disorders (1 source) Slow transit constipation; Translations: [Slow transit constipation] Onset: 10-30-2024 Episodic Spondylosis; intervertebral disc disorders; other back problems (20 sources) Low back pain; Translations: [Low back pain without sciatica, unspecified back pain laterality, unspecified chronicity] Onset: 03-19-2020 04-10-2024 Episodic Unclassified (1 source) Low back pain, unspecified; Translations: [Low back pain, unspecified] Onset: 04-10-2024 Results Test Name Value Interpretation Reference Range Facility Progress Noteon 02-20-2025 Progress Note Culture reviewed, culture is positive but resistant to antibiotics prescribed at discharge. Antibiotic needs to be changed to Nitrofurantoin 100mg PO BID x7d Normal [facility] Progress Noteon 02-19-2025 Progress Note Culture reviewed. Awaiting sensitivity results. Discharged on Keflex Normal [facility] BLOOD CULTUREon 02-18-2025 Bacteria identified Cx Nom (Bld) Normal [facility] Comment on above: Performed By: #### L [id number] ####Shank Burnisher: SHEEBA MUSTAFA ([id number])[facility] ([address] Bacteria identified Cx Nom (Bld) Normal [facility] Comment on above: Performed By: #### L [id number] ####Shank Burnisher: SHEEBA MUSTAFA ([id number])[facility] ([address] CBC W Auto Differential pane l (Bld)Ordered By: Babar Vang on 02-18-2025 Basophils (Bld) [#/Vol] 0 10*3/uL 0.0 - 0.2 10*3/uL [facility] Basophils/100 WBC (Bld) 0.6 % 0.0 - 2.0 % [facility] Eosinophils (Bld) [#/Vol] 0.1 10*3/uL 0. 0 - 0.5 10*3/uL [facility] Eosinophils/100 WBC (Bld) 1 % 0.0 - 6.0 % [facility] Erythrocyte distribution width (RBC) [Ratio] 20.8 % High 11.5 - 15.0 % [facility] Hematocrit (Bld) [Volume fraction] 44.7 % 35.0 - 47.0 % [facility] Hemoglobin (Bld) [Mass/Vol] 14.8 g/dL 11.7 - 16.0 g/dL [facility] Immature granulocytes (Bld) [#/Vol] 0 10*3/uL NINF - 0.1 10*3/uL [facility] Immature granulocytes/100 WBC (Bld) 0.4 % 0.0 - 2.0 % [facility] Interpretation and review of laboratory results Abnormal [facility] th Lymphocytes (Bld) [#/Vol] 2 10*3/uL 1. 0 - 4.3 10*3/uL [facility] Lymphocytes/100 WBC (Bld) 30 % 15 .0 - 45.0 % [facility] MCH (RBC) [Entitic mass] 29.1 pg 26. 0 - 34.0 pg [facility] MCHC (RBC) [Mass/Vol] 33.1 % 30.5 - 36.0 % [facility] MCV (RBC) [Entitic vol] 88 fL 77.0 - 99.0 fL [facility] Monocytes (Bld) [#/Vol] 0.7 10*3/uL 0.0 - 0.9 10*3/uL [facility] Monocytes/100 WBC (Bld) 10.8 % 5.0 - 13.0 % [facility] Neutrophils (Bld) [#/Vol] 3.9 10*3/uL 1. 8 - 7.5 10*3/uL [facility] Neutrophils/100 WBC (Bld) 57.2 % 38 .0 - 82.0 % [facility] Nucleated RBC/100 WBC (Bld) [Ratio] 0 % [facility] Platelet mean volume (Bld) [Entitic vol] 8.5 fL Low 9.0 - 12.7 fL [facility] Platelets (Bld) [#/Vol] 245 10*3/uL 140 - 440 10*3/uL [facility] RBC (Bld) [#/Vol] 5.08 10*6/uL 3.80 - 5.2 0 10*6/uL [facility] WBC (Bld) [#/Vol] 6.8 10*3/uL 3.6 - 10.7 10*3/uL [facility] CBC WITH AUTO DIFFERENTIALon 02-18-2025 Basophils (Bld) [#/Vol] 0.0 10*3/uL Normal 0.0-0.2 [facility] Comment on above: Performed By: #### L [id number] ####Shank Burnisher: ROSETTE ZHAO ([id number])[facility] ([facility])[address] [place] [address] Basophils/100 WBC (Bld) 0.6 % Normal 0.0-2.0 [facility] Comment on above: Performed By: #### L [id number] ####Shank Burnisher: ROSETTE ZHAO ([id number])[facility])[address] Eosinophils (Bld) [#/Vol] 0.1 10*3/uL Normal 0.0-0.5 [facility] Comment on above: Performed By: #### L [id number] ####Shank Burnisher: ROSETTE ZHAO ([id number])[facility])[address] Eosinophils/100 WBC (Bld) 1.0 % Normal 0.0-6.0 [facility] Comment on above: Performed By: #### L [id number] ####Shank Burnisher: ROSETTE ZHAO ([id number])[facility] ([facility])[address] [place] [address] Erythrocyte distribution width (RBC) [Ratio] 20.8 % High 11.5-15.0 [facility] Comment on above: Performed By: #### L [id number] ####Shank Burnisher: ROSETTE MONTALVOVIK ([id number])[facility] ([facility])[address] Hematocrit (Bld) [Volume fraction] 44.7 % Normal 35.0-47.0 [facility] Comment on above: Performed By: #### L [id number] ####Shank Burnisher: ROSETTE MONTALVOVIK ([id number])[facility] ([facility])[address] [place] [address] Hemoglobin (Bld) [Mass/Vol] 14.8 g/dL Normal 11.7-16.0 [facility] Comment on above: Performed By: #### L [id number] ####Shank Burnisher: ROSETTE ZHAO ([id number])[facility] ([facility])[address] [place] [address] IMMATURE GRANS % 0.4 % Normal 0.0-2.0 [facility] Comment on above: Performed By: #### L [id number] ####Shank Burnisher: ROSETTE ZHAO ([id number])[facility] ([facility])[address] [place] [address] IMMATURE GRANS ABSOLUTE 0.0 10*3/uL Normal <0.1 [facility] Comment on above: Performed By: #### L [id number] ####Shank Burnisher: ROSETTE ZHAO ([id number])[facility] ([facility])[address] [place] [address] Lymphocytes (Bld) [#/Vol] 2.0 10*3/uL Normal 1.0-4.3 [facility] Comment on above: Performed By: #### L [id number] ####Shank Burnisher: ROSETTE MONTALVOVIK ([id number])[facility] ([facility])[address] Lymphocytes/100 WBC (Bld) 30.0 % Normal 15.0-45.0 [facility] Comment on above: Performed By: #### L [id number] ####Shank Burnisher: ROSETTE MONTALVOVIK ([id number])[facility] ([facility])[address] MCH (RBC) [Entitic mass] 29.1 pg Normal 26.0-34.0 [facility] Comment on above: Performed By: #### L [id number] ####Shank Burnisher: ROSETTE HUMPHREYSKyawVIK ([id number])[facility] ([facility])[address] [place] [address] MCHC 33.1 % Normal 30.5-36.0 [facility] Comment on above: Performed By: #### L [id number] ####Shank Burnisher: ROSETTE MONTALVOVIK ([id number])[facility] ([facility])[address] MCV (RBC) [Entitic vol] 88.0 fL Normal 77.0-99.0 [facility] Comment on above: Performed By: #### L [id number] ####Shank Burnisher: ROSETTE ZHAO ([id number])[facility] ([facility])[address] Monocytes (Bld) [#/Vol] 0.7 10*3/uL Normal 0.0-0.9 [facility] Comment on above: Performed By: #### L [id number] ####Shank Burnisher: ROSETTE ZHAO ([id number])[facility] ([facility])[address] Monocytes/100 WBC (Bld) 10.8 % Normal 5.0-13.0 [facility] Comment on above: Performed By: #### L [id number] ####Shank Burnisher: ROSETTE MONTALVOVIK ([id number])[facility] ([facility])[address] NEUTROPHILS ABSOLUTE 3.9 10*3/uL Normal 1.8-7.5 [facility] Comment on above: Performed By: #### L [id number] ####Shank Burnisher: ROSETTE ZHAO ([id number])[facility] ([facility])[address] Neutrophils/100 WBC (Bld) 57.2 % Normal 38.0-82.0 [facility] Comment on above: Performed By: #### L [id number] ####Shank Burnisher: ROSETTE MONTALVOVIK ([id number])[facility] ([facility])[address] NRBC 0.0 /100 WBCs Normal 0.0-2.0 [facility] Comment on above: Performed By: #### L [id number] ####Shank Burnisher: ROSETTE ZHAO ([id number])[facility] ([facility])[address] Platelet mean volume (Bld) [Entitic vol] 8.5 fL Low 9.0-12.7 [facility] Comment on above: Performed By: #### L [id number] ####Shank Burnisher: ROSETTE ZHAO ([id number])[facility] ([facility])[address] [place] [address] [place] Platelets (Bld) [#/Vol] 245 10*3/uL Normal 140-440 [facility] Comment on above: Performed By: #### L [id number] ####Shank Burnisher: ROSETTE ZHAO ([phone])[facility] (SB[facility])[address] RBC (Bld) [#/Vol] 5.08 10*6/uL Normal 3.80-5.20 [facility] Comment on above: Performed By: #### L [id number] ####Shank Burnisher: ROSETTE ZHAO ([phone])[facility]ALTH[facility] (SBHLAB)[address] [place] [address] WBC (Bld) [#/Vol] 6.8 10*3/uL Normal 3.6-10.7 [facility] Comment on above: Performed By: #### L [id number] ####Shank Burnisher: ROSETTE ZHAO ([phone])[facility] (SBHLAB)[address] [place] [address] COMPLETE URINALYSIS WITH REF MAGNOLIA TO CULTUREon 02-18-2025 BACTERIA (#/HPF) IN URINE Few Abnormal Negative [facility] Comment on above: Performed By: #### L [id number] ####Shank Burnisher: ROSETTE ZHAO ([phone])[facility] (SB[facility])[address] [place] [address]#### [id number] ####Shank Burnisher: SHEEBA MUSTAFA ([phone])[facility] (SACLAB)[address] [place] [address] BILIRUBIN, TOTAL PRESENCE IN URINE Negative Normal Negative [facility] Comment on above: Performed By: #### L [id number] ####Shank Burnisher: ROSETTE ZHAO ([phone])[facility] (SB[facility])[address] [place] [address]#### [id number] ####Shank Burnisher: SHEEBA MUSTAFA ([phone])[facility] ([facility])[address] [place] [address] Clarity (U) Turbid Abnormal Clear [facility] Comment on above: Performed By: #### L [id number] ####Shank Burnisher: ROSETTE ZHAO ([phone])[facility] (SBHLAB)[address] [place] [address]#### [id number] ####Shank Burnisher: SHEEBA MUSTAFA ([phone])[facility] ([facility])[address] [place] [address] Color (U) Yellow Normal Lt. Yellow [facility] Comment on above: Performed By: #### L [id number] ####Shank Burnisher: ROSETTE ZHAO ([phone])[facility] (SBHLAB)[address] [place] [address]#### [id number] ####Shank Burnisher: SHEEBA MUSTAFA ([phone])[facility] ([facility])[address] [place] [address] GLUCOSE (MG/DL) IN URINE Normal Normal Normal (<70 ) [facility] Comment on above: Performed By: #### L [id number] ####Shank Burnisher: ROSETTE ZHAO ([phone])[facility] ([facility] [place] [address]#### [id number] ####Shank Burnisher: SHEEBA MUSTAFA ([phone])[facility] ([facility] [place] [address] HEMOGLOBIN PRESENCE IN URINE Negative Normal Negative [facility] Comment on above: Performed By: #### L [id number] ####Shank Burnisher: ROSETTE ZHAO ([phone])[facility] ([facility])[address] [place] [address]#### [id number] ####Shank Burnisher: SHEEBA MUSTAFA ([phone])[facility] ([facility])[address] [place] [address] Ketones Ql (U) Negative Normal Negative [facility] Comment on above: Performed By: #### L [id number] ####Shank Burnisher: ROSETTE ZHAO ([phone])[facility] (SBHLAB)[address] [place] [address]#### [id number] ####Shank Burnisher: SHEEBA MUSTAFA ([phone])[facility] ([facility])[address] [place] [address] LEUKOCYTE ESTERASE PRESENCE IN URINE BY TEST STRIP 250 Cathy/uL Abnormal Negative [facility] Comment on above: Performed By: #### L [id number] ####Shank Burnisher: ROSETTE ZHAO ([phone])[facility] ([facility])[address]#### [id number] ####Shank Burnisher: SHEEBA MUSTAFA ([phone])[facility] ([facility])[address] [place] [address] MUCUS (#/LPF) IN URINE SEDIMENT Few Normal Negative [facility] Comment on above: Performed By: #### L [id number] ####Shank Burnisher: ROSETTE ZHAO ([phone])[facility] ([facility])[address]#### [id number] ####Shank Burnisher: SHEEBA MUSTAFA ([phone])[facility] ([facility])[address] [place] [address] NITRITE PRESENCE IN URINE Positive Abnormal Negative [facility] Comment on above: Performed By: #### L [id number] ####Shank Burnisher: ROSETTE ZHAO ([phone])[facility]IK[facility] (SBHLAB)[address] [place] [address]#### [id number] ####Shank Burnisher: SHEEBA MUSTAFA ([phone])[facility] ([facility])[address] [place] [address] pH (U) 5.5 [pH] Normal 5.0-8.0 [facility] Comment on above: Performed By: #### L [id number] ####Shank Burnisher: ROSETTE ZHAO ([phone])[facility] ([facility])[address] [place] [address] [place]#### [id number] ####Shank Burnisher: SHEEBA MUSTAFA ([phone])[facility] ([facility])[address] [place] [address] Protein (U) [Mass/Vol] 70 mg/dL Abnormal Negative [facility] Comment on above: Performed By: #### L [id number] ####Shank Burnisher: ROSETTE ZHAO ([phone])[facility] (SB[facility]AB)[address]#### [id number] ####Shank Burnisher: SHEEBA MUSTAFA ([phone])[facility] ([facility])[address] [place] [address] RBC (#/HPF) IN URINE SEDIMENT 3-5 Abnormal 0-2 [facility] Comment on above: Performed By: #### L [id number] ####Shank Burnisher: ROSETTE ZHAO ([phone])[facility] (SBHLAB)[address]#### [id number] ####Shank Burnisher: SHEEBA MUSTAFA ([id number])[facility] ([facility])[address] [place] [address] Specific gravity (U) [Rel density] 1.014 Normal 1.005-1.030 [facility] Comment on above: Result Comment: HUSSAIN Bhatt COMMENTS:This specimen has been reflexed to urine culture. Performed By: #### L [id number] ####Shank Burnisher: ROSETTE ZHAO ([phone])[facility]ALTHYamliet [facility] (SBHLAB)[address]#### [id number] ####Shank Burnisher: SHEEBA MUSTAFA ([phone])[facility] ([facility])[address] [place] [address] SQUAMOUS EPITHELIAL CELLS (#/HPF) IN URINE SEDIMENT Negative Normal 3-5 [facility] Comment on above: Performed By: #### L [id number] ####Shank Burnisher: ROSETTE ZHAO ([phone])[facility] (SBHLAB)[address] [place] [address] [place]#### [id number] ####Shank Burnisher: SHEEBA MUSTAFA ([phone])[facility] ([facility])[address] [place] [address] UROBILINOGEN (MG/DL) IN URINE Normal Normal Normal (0-1) [facility] Comment on above: Performed By: #### L [id number] ####Shank Burnisher: ROSETTE ZHAO ([phone])[facility] ([facility])[address]#### [id number] ####Shank Burnisher: SHEEBA MUSTAFA ([phone])[facility] ([facility])[address] [place] [address] WBC (LEUKOCYTE) (#/HPF) IN URINE SEDIMENT 51-100 Abnormal 0-5 [facility] Comment on above: Performed By: #### L [id number] ####Shank Burnisher: ROSETTE ZHAO ([phone])[facility] (SBHLAB)[address]#### [id number] ####Shank Burnisher: SHEEBA MUSTAFA ([phone])[facility] ([facility])[address] [place] [address] COMPREHENSIVE METABOLIC PANE Hua 02-18-2025 Albumin [Mass/Vol] 3.5 g/dL Normal 3.4-4.8 [facility] Comment on above: Performed By: #### L [id number], LAB17, LAB99, [id number] ####Shank Burnisher: ROSETTE ZHAO ([phone])[facility] ([facility])[address] [place] [address] ALP [Catalytic activity/Vol] 76 U/L Normal 40-150 [facility] Comment on above: Performed By: #### L [id number], LAB17, LAB99, [id number] ####Shank Burnisher: ROSETTE ZHAO ([phone])[facility] ([facility])[address] ALT [Catalytic activity/Vol] 20 U/L Normal <30 [facility] Comment on above: Performed By: #### L [id number], LAB17, LAB99, [id number] ####Shank Burnisher: ROSETTE ZHAO ([id number])[facility] ([facility])[address] [place] [address] Anion gap [Moles/Vol] 10 mmol/L Normal 3-13 [facility] Comment on above: Performed By: #### L AB103, LAB17, LAB99, [id number] ####Shank Burnisher: ROSETTE ZHAO ([id number])[facility] (SB[facility]AB)[address] AST [Catalytic activity/Vol] 40 U/L High <34 [facility] Comment on above: Performed By: #### Albert AB103, LAB17, LAB99, [id number] ####Shank Burnisher: ROSETTE ZHAO ([id number])[facility] (SBHLAB)[address] Bilirubin [Mass/Vol] 0.6 mg/dL Normal <1.2 [facility] Comment on above: Performed By: #### L AB103, LAB17, LAB99, [id number] ####Shank Burnisher: ROSETTE ZHAO ([phone])[facility] (HLAB)[address] Calcium [Mass/Vol] 9.7 mg/dL Normal 8.8-10.0 [facility] Comment on above: Performed By: #### Albert AB103, LAB17, LAB99, [id number] ####Shank Burnisher: ROSETTE ZHAO ([phone])[facility] [place] (SBHLAB)[address] [place] [address] [place] Chloride [Moles/Vol] 109 mmol/L High 98-107 [facility] Comment on above: Performed By: #### L AB103, LAB17, LAB99, [id number] ####Shank Burnisher: ROSETTE ZHAO ([phone])[facility] ([facility])[address] [place] [address] [place] CO2 [Moles/Vol] 19 mmol/L Low 23-31 [facility] Comment on above: Performed By: #### L AB103, LAB17, LAB99, [id number] ####Shank Burnisher: ROSETTE ZHAO ([phone])[facility] (SBHLAB)[address] Creatinine [Mass/Vol] 1.01 mg/dL Normal 0.57-1.11 [facility] Comment on above: Performed By: #### Albert AB103, LAB17, LAB99, [id number] ####Shank Burnisher: ROSETTE ZHAO ([phone])[facility] (SBHLAB)[address] GLOMERULAR FILTRATION RATE ML/MIN/1.73 SQ M.PREDICTED 55.3 mL/min/1.73m*2 Low >60.0 [facility] Comment on above: Result Comment: Calc ulation based on the Chronic Kidney Disease Epidemiology Collaboration (CKD-EPI) equation refit without adjustment for race Performed By: #### Albert ABJody, LAB17, LAB99, [id number] ####Shank Burnisher: ROSETTE ZHAO ([phone])[facility] ([facility])[address] [place] [address] Glucose [Mass/Vol] 137 mg/dL High 82-115 [facility] Comment on above: Performed By: #### Albert BERNARDO, LAB17, LAB99, [id number] ####Shank Burnisher: ROSETTE ZHAO ([phone])[facility] (HLAB)[address] [place] [address] Potassium [Moles/Vol] 4.3 mmol/L Normal 3.5-5.1 [facility] Comment on above: Result Comment: [facility] potassium values may be up to 0.5 mmol/L lower than serum values. Performed By: #### Albert AB103, LAB17, LAB99, [id number] ####Shank Burnisher: ROSETTE ZHAO ([phone])[facility] ([facility])[address] Protein [Mass/Vol] 7.4 g/dL Normal 6.4-8.3 [facility] Comment on above: Performed By: #### Albert AB103, LAB17, LAB99, [id number] ####Shank Burnisher: ROSETTE ZHAO ([id number])[facility] (SBHLAB)[address] Sodium [Moles/Vol] 138 mmol/L Normal 136-145 [facility] Comment on above: Performed By: #### L AB103, LAB17, LAB99, [id number] ####Shank Burnisher: ROSETTE ZHAO ([phone])[facility] (SBHLAB)[address] Urea nitrogen [Mass/Vol] 26 mg/dL High 9-23 [facility] Comment on above: Performed By: #### L AB103, LAB17, LAB99, [id number] ####Shank Burnisher: ROSETTE ZHAO ([phone])[facility] (SBHLAB)[address] ABDOMEN PELVIS W CONTRAST on 02-18-2025 CT ABDOMEN PELVIS W CONTRAST Normal [facility] CT Abdomen and Pelvis W cont rast Susan 02-18-2025 Patient Name: SOMMER FRIEDMAN : 1940 Exam Date/Time: 02/18/2025 10:49 Procedure: CT ABDOMEN PELVIS W CONTRAST Ordering Provider: MENG GREGORY Reason For Exam: Hematuria nausea evaluate for mass/hydronephrosis HISTORY: Hematuria nausea After intravenous contrast sections are performed through the abdomen and pelvis. Dose reduction was employed with automatic exposure control. Comparison study 01/06/2025. FINDINGS: 1. Just included lower chest shows inferior aspect of right calcified breast implant with nonspecific adjacent soft tissue thickening anteriorly. Cardiomegaly is present with some areas of probable scarring lung bases. 2. Fatty infiltration liver. 3. No renal masses are identified. Small left upper pole cortical cyst, slightly atrophic right kidney with two renal arteries bilaterally. 4. Marked generalized calcific atherosclerosis with heavy calcified plaquing about visceral artery origins, occluded right common iliac artery with marked atherosclerosis bilateral iliac systems and upper SFAs. Right leg intramedullary mariann. 5. 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 Absent uterus, diverticulosis left colon with generalized wall thickening (colitis cannot be excluded) Report Dictated on Electronically Signed By: Cash Coffey MD Electronically Signed Date/Time: 02/18/2025 11:32 AM EDT [facility] Cash Coffey MD - 02/18/2025 Patient Name: SOMMER FRIEDMAN : 1940 [facility]#: [id number] Exam Date/Time: 02/18/2025 10:49 Procedure: CT ABDOMEN PELVIS W CONTRAST Ordering Provider: MENG GREGORY Reason For Exam: Hematuria nausea evaluate for mass/hydronephrosis HISTORY: Hematuria nausea After intravenous contrast sections are performed through the abdomen and pelvis. Dose reduction was employed with automatic exposure control. Comparison study 01/06/2025. FINDINGS: 1. Just included lower chest shows inferior aspect of right calcified breast implant with nonspecific adjacent soft tissue thickening anteriorly. Cardiomegaly is present with some areas of probable scarring lung bases. 2. Fatty infiltration liver. 3. No renal masses are identified. Small left upper pole cortical cyst, slightly atrophic right kidney with two renal arteries bilaterally. 4. Marked generalized calcific atherosclerosis with heavy calcified plaquing about visceral artery origins, occluded right common iliac artery with marked atherosclerosis bilateral iliac systems and upper SFAs. Right leg intramedullary mariann. 5. 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 Absent uterus, diverticulosis left colon with generalized wall thickening (colitis cannot be excluded) Report Dictated on Electronically Signed By: Cash Coffey MD Electronically Signed Date/Time: 02/18/2025 11:32 AM EDT [facility] Radiology Study observation (narrative) [facility] Comprehensive metabolic 1998 panelon 02-18-2025 Albumin [Mass/Vol] 3.5 g/dL 3.4 - 4.8 g/dL [facility] ALP [Catalytic activity/Vol] 76 U/L 40 - 150 U/L [facility] ALT [Catalytic activity/Vol] 20 U/L NINF - 30 U/L [facility] Anion gap [Moles/Vol] 10 mmol/L 3 - 13 mmol/L [facility] AST [Catalytic activity/Vol] 40 U/L High NINF - 34 U/L [facility] Bilirubin [Mass/Vol] 0.6 mg/dL NINF - 1.2 mg/dL [facility] Calcium [Mass/Vol] 9.7 mg/dL 8.8 - 10. 0 mg/dL [facility] Chloride [Moles/Vol] 109 mmol/L High 98 - 10 7 mmol/L [facility] CO2 [Moles/Vol] 19 mmol/L Low 23 - 31 mmol/L [facility] Creatinine [Mass/Vol] 1.01 mg/dL 0.57 - 1.11 mg/dL [facility] GFR/1.73 sq M.predicted (S/P/Bld) [Vol rate/Area] 55.3 mL/min Low - PINF [facility] Comment on above: Calculation based on the Chronic Kidney Disease Epidemiology Collaboration (CKD-EPI) equation refit without adjustment for race Glucose [Mass/Vol] 137 mg/dL High 82 - 115 mg/dL [facility] Interpretation and review of laboratory results Abnormal [facility] th Potassium [Moles/Vol] 4.3 mmol/L 3.5 - 5.1 mmol/L [facility] Comment on above: Plasma potassium morro ues may be up to 0.5 mmol/L lower than serum values. Protein [Mass/Vol] 7.4 g/dL 6.4 - 8.3 g/dL [facility] Sodium [Moles/Vol] 138 mmol/L 136 - 145 mmol/L [facility] Urea nitrogen [Mass/Vol] 26 mg/dL High 9 - 23 mg/d L [facility] ECG 12-LEADon 02-18-2025 ECG 12-LEAD Normal [facility] ED Nursing Noteon 02-18-2025 ED Nursing Note Report given to Danika RN and Candice RN [facility] ED Nursing Note This RN called [facility] to update on eta for transport back around 1430. RN also made aware of new medication Keflex going home with pt. [facility] ED Nursing Note This RN spoke with PAOLA Gaviria at [facility] with update on pt condition, pt baseline and possible transfer back to facility Normal [facility] ED Nursing Note This RN spoke with son Jaylan with update on pt condition at this time Normal [facility] ED Provider Noteon ED Provider Note Normal [facility] HIGH SENSITIVITY TROPONIN, S ERIAL BASELINEon 02-18-2025 TROPONIN HS SERIAL BASELINE 12 ng/L Normal <=14 [facility] Comment on above: Result Comment: In i ndividuals presenting with symptoms > 2h, a baseline troponin <= 5 ng/L suggests acutecardiac injury is unlikely and further serial testing is generally not indicated. Performed By: #### L AB103, LAB17, LAB99, [id number] ####Shank Burnisher: ROSETTE ZHAO ([phone])[facility]ALTH[facility] [place] [address] HIGH SENSITIVITY TROPONIN, S ERIAL, SECOND TESTon 02-18-2025 2H TROPONIN HS (SERIAL 2ND TROPONIN) 18 ng/L High <=14 [facility] Comment on above: Result Comment: Risi ng or falling troponin delta between 2 ??? 15 ng/L as compared to baseline value requires a 3rd serial troponin Performed By: #### L [id number] ####Shank Burnisher: ROSETTE ZHAO ([id number])[facility] ([facility])[address] [place] [address] LACTIC ACID WITH REFLEXon Lactate [Moles/Vol] 0.9 mmol/L Normal 0.5-2.2 [facility] Comment on above: Performed By: #### L [id number] ####Shank Burnisher: ROSETTE ZHAO ([id number])[facility] (SB[facility])[address] LIPASEon 02-18-2025 Lipase [Catalytic activity/Vol] 48 U/L Normal <55 [facility] Comment on above: Performed By: #### L AB103, LAB17, LAB99, [id number] ####Shank Burnisher: ROSETTE ZHAO ([phone])[facility] ([facility])[address] Laboratory - Chemistry and C hemistry - challengeon 02-18-2025 Lactate [Moles/Vol] 0.9 mmol/L 0.5 - 2. 2 mmol/L [facility] Lipase [Catalytic activity/Vol] 48 U/L NINF - 55 U/L [facility] Magnesium [Mass/Vol] 2 mg/dL 1.6 - 2 .6 mg/dL [facility] MAGNESIUMon 02-18-2025 Magnesium [Mass/Vol] 2.0 mg/dL Normal 1.6-2.6 [facility] Comment on above: Result Comment: ORDE R COMMENTS:Higher values can be expected in females during menses. Performed By: #### L AB103, LAB17, LAB99, [id number] ####Shank Burnisher: ROSETTE ZHAO ([phone])[facility] (SB[facility])[address] [place] [address] Magnesium [Mass/Vol]on 02-18 Higher values can be expected in females during menses. [facility] No Panel Informationon 02-18 2h Troponin HS (Serial 2nd Troponin) 18 ng/L High NINF - 14 ng/L [facility] Comment on above: Rising or falling tr oponin delta between 2 15 ng/L as compared to baseline value requires a 3rd serial troponin Interpretation and review of laboratory results Abnormal [facility] Interpretation and review of laboratory results Normal [facility] Troponin HS Serial Baseline 12 ng/L NINF - 14 ng/L [facility] Comment on above: In individuals prese nting with symptoms > 2h, a baseline troponin <= 5 ng/L suggests acute cardiac injury is unlikely and further serial testing is generally not indicated. [facility] Interpretation and review of laboratory results Normal [facility] Interpretation and review of laboratory results Normal [facility] P [place] 0 degrees [facility] FL Interval 0 ms [facility] QRS [place] -58 degrees [facility] QRSD Interval 100 ms [facility] QT Interval 377 ms [facility] QTC Interval 478 ms [facility] T Wave [place] 92 degrees [facility] Atrial fibrillation Ventricular premature complex Left anterior fascicular block LVH with secondary repolarization abnormality Anterior Q waves, possibly due to LVH Borderline ST elevation, lateral leads No acute change compared to first previous EKG. Electronically Signed On 02-18-2025 09:54:57 EDT by Ag Meng CV Ag Garrett MD - 02/18/2025 IMPRESSION: Atrial fibrillation Ventricular premature complex Left anterior fascicular block LVH with secondary repolarization abnormality Anterior Q waves, possibly due to LVH Borderline ST elevation, lateral leads No acute change compared to first previous EKG. Electronically Signed On 02-18-2025 09:54:57 EDT by Ag Meng [facility] URINE CULTUREon 02-18-2025 Bacteria identified Cx Nom (U) Normal [facility] Comment on above: Performed By: #### L [id number] ####Shank Burnisher: ROSETTE ZHAO ([phone])[facility] ([facility])[address] [place] [address]#### [id number] ####Shank Burnisher: SHEEBA MUSTAFA ([phone])[facility] ([facility])[address] [place] [address] Urinalysis complete panel (U )Ordered By: America Crews on 02-18-2025 Bacteria LM.HPF (Urine sed) [#/Area] Few Abnormal Negative /HPF [facility] Bilirubin Ql (U) Negative Negative mg/dL [facility] Clarity (U) Turbid Abnormal Clear [facility] Color (U) Yellow Lt. Yellow [facility] Epithelial cells.squamous LM.HPF (Urine sed) [#/Area] Negative [facility] Glucose Ql (U) Normal Normal (<70) mg/dL [facility] Hemoglobin Ql (U) Negative Negative mg/dL [facility] Interpretation and review of laboratory results Abnormal [facility] th Ketones (U) [Mass/Vol] Negative Negat jaciel mg/dL [facility] Leukocyte esterase Test strip Ql (U) 250 Abnormal Negative Cathy/uL [facility] Mucus LM.HPF (Urine sed) [#/Area] Few Negative /LPF [facility] [facility] Nitrite Ql (U) Positive Abnormal Negative [facility] th pH (U) 5.5 [pH] 5.0 - 8.0 pH [facility] Protein (U) [Mass/Vol] 70 mg/dL Abnormal Negative [facility] RBC LM.HPF (Urine sed) [#/Area] 3-5 Abnormal [facility] Specific gravity (U) [Rel density] 1.014 1.005 - 1.030 [facility] Urobilinogen (U) [Mass/Vol] Normal Normal (0-1) mg/dL [facility] WBC LM.HPF (Urine sed) [#/Area] 51-100 Abnormal [facility] This specimen has been reflexed to urine culture. [facility] Vital signson 02-18-2025 Heart rate 91 /min bpm [facility] XR Chest Single viewon 02-18 Patient Name: SOMMER FRIEDMAN : 1940 Exam Date/Time: 02/18/2025 10:08 Procedure: XR CHEST 1 VIEW Ordering Provider: MENG GREGORY Reason For Exam: Diaphoresis HISTORY diaphoresis Frontal view the chest shows no definite acute finding, unchanged since last exam of 10/29/2024. Degenerative changes spine and shoulders with osteopenia, atherosclerosis aorta, calcified breast implants Report Dictated on Electronically Signed By: Cash Coffey MD Electronically Signed Date/Time: 02/18/2025 10:28 AM T [facility] Cash Coffey MD - 02/18/2025 Patient Name: SOMMER FRIEDMAN : 1940 Exam Date/Time: 02/18/2025 10:08 Procedure: XR CHEST 1 VIEW Ordering Provider: MENG GREGORY Reason For Exam: Diaphoresis HISTORY diaphoresis Frontal view the chest shows no definite acute finding, unchanged since last exam of 10/29/2024. Degenerative changes spine and shoulders with osteopenia, atherosclerosis aorta, calcified breast implants Report Dictated on Electronically Signed By: Cash Coffey MD Electronically Signed Date/Time: 02/18/2025 10:28 AM T [facility] Radiology Study observation (narrative) [facility] XR Chest Single viewOrdered By: Cash Coffey on 02-18-2025 [facility] Work Phone: Anion gap in Serum or Plasma Ordered By: Kathi Juarez on 01-15-2025 Anion gap [Moles/Vol] 12 mmol/L 5-15 [facility] BUN/creatinine ratioOrdered By: Kathi Juarez on 01-15-2025 Urea nitrogen/Creatinine [Mass ratio] 17.1 mg/mg 10-20 [facility] Carbon dioxide, total [Moles /volume] in Central venous bloodOrdered By: Kathi Juarez on 01-15-2025 CO2 [Moles/Vol] 21.1 mmol/L 21.0-32.0 [facility] Chloride assayOrdered By: Emir Juarez on 01-15-2025 Chloride [Moles/Vol] 101 mmol/L 98-108 [facility] Glomerular filtration rate ( GFR) estimation/1.73 sq m using serum, plasma, or whole bOrdered By: Kathi Juarez on 01-15-2025 GFR/1.73 sq M.predicted among non-blacks MDRD (S/P/Bld) [Vol rate/Area] 56 mL/min/{1.73_m2} Low >60 [facility] Comment on above: mL/min/1.73m2 CKD-EP I Creatinine Equation (2020) Magnesium measurement (mass/ volume)Ordered By: Kathi Juarez on 01-15-2025 Magnesium (Unsp spec) [Mass/Vol] 2.1 mg/dL 1.5-2.2 [facility] Potassium measurement (mass/ volume)Ordered By: Kathi Juarez on 01-15-2025 Potassium (Unsp spec) [Mass/Vol] 4.2 mmol/L 3.3-5.1 [facility] Serum creatinine measurement (mass/volume)Ordered By: Kathi Juarez on 01-15-2025 Creatinine [Mass/Vol] 1.01 mg/dL 0.70-1.20 [facility] Serum glucose measurement (m ass/volume)Ordered By: Kathi Juarez on 01-15-2025 Glucose [Mass/Vol] 94 mg/dL 70-99 [facility] Serum or plasma calcium adam urement (mass/volume)Ordered By: Kathi Juarez on 01-15-2025 Calcium [Mass/Vol] 9.7 mg/dL 7.6-11.0 [facility] Serum or plasma urea nitroge n measurement (mass/volume)Ordered By: Kathi Juarez on 01-15-2025 Urea nitrogen [Mass/Vol] 17 mg/dL 4-19 [facility] Sodium levelOrdered By: Fuentes Juarez on 01-15-2025 Sodium [Moles/Vol] 134 mmol/L 133-145 [facility] Anion gap in Serum or Plasma Ordered By: Kathi Juarez on 01-14-2025 Anion gap [Moles/Vol] 9 mmol/L 5-15 [facility] BUN/creatinine ratioOrdered By: Kathi Juarez on 01-14-2025 Urea nitrogen/Creatinine [Mass ratio] 17.9 mg/mg 10- [facility] Carbon dioxide, total [Moles /volume] in Central venous bloodOrdered By: Kathi Juarez on 01-14-2025 CO2 [Moles/Vol] 24.2 mmol/L 21.0-32.0 [facility] Chloride assayOrdered By: Emir Juarez on 01-14-2025 Chloride [Moles/Vol] 103 mmol/L 98-108 [facility] Glomerular filtration rate ( GFR) estimation/1.73 sq m using serum, plasma, or whole bOrdered By: Kathi Juarez on 01-14-2025 GFR/1.73 sq M.predicted among non-blacks MDRD (S/P/Bld) [Vol rate/Area] 60 mL/min/{1.73_m2} >60 [facility] Comment on above: mL/min/1.73m2 CKD-EP I Creatinine Equation (2020) Magnesium measurement (mass/ volume)Ordered By: Kathi Juarez on 01-14-2025 Magnesium (Unsp spec) [Mass/Vol] 2.3 mg/dL High 1.5-2.2 [facility] Potassium measurement (mass/ volume)Ordered By: Kathi Juarez on 01-14-2025 Potassium (Unsp spec) [Mass/Vol] 4.3 mmol/L 3.3-5.1 [facility] Serum creatinine measurement (mass/volume)Ordered By: Kathi Juarez on 01-14-2025 Creatinine [Mass/Vol] 0.95 mg/dL 0.70-1.20 [facility] Serum glucose measurement (m ass/volume)Ordered By: Kathi Juarez on 01-14-2025 Glucose [Mass/Vol] 94 mg/dL 70-99 [facility] Serum or plasma calcium adam urement (mass/volume)Ordered By: Kathi Juarez on 01-14-2025 Calcium [Mass/Vol] 9.7 mg/dL 7.6-11.0 [facility] Serum or plasma urea nitroge n measurement (mass/volume)Ordered By: Kathi Juarez on 01-14-2025 Urea nitrogen [Mass/Vol] 17 mg/dL 4-19 [facility] Sodium levelOrdered By: Fuentes Juarez on 01-14-2025 Sodium [Moles/Vol] 137 mmol/L 133-145 [facility] 30on 01-08-2025 30 Normal [facility] 30 [facility] [phone] 01-08-2025 [id number] [facility] [phone] Transportation has been confirmed for 3 PM. RN and post anesthesia care unit nurse notified via secure chat. SonParris, notified via TC; VM left. [facility] [phone] [facility] [phone] Discharge med list transmitted to [facility] via Careport per TCC request. [facility] [phone] Discharge order noted in epic. SHOULDER PAD [employer]DER tasked to set up cot transport. [facility] [phone] [facility] CBC (HEMOGRAM)on 01-08-2025 Erythrocyte distribution width (RBC) [Ratio] 15.9 % High 11.5-15.0 [facility] Comment on above: Performed By: #### L [id number] ####Shank Burnisher: SHEEBA MUSTAFA ([phone])[facility])[address] [place] [address] Hematocrit (Bld) [Volume fraction] 41.2 % Normal 35.0-47.0 [facility] Comment on above: Performed By: #### L [id number] ####Shank Burnisher: SHEEBA MUSTAFA ([phone])[facility])[address] [place] [address] Hemoglobin (Bld) [Mass/Vol] 13.2 g/dL Normal 11.7-16.0 [facility] Comment on above: Performed By: #### L [id number] ####Shank Burnisher: SHEEBA MUSTAFA ([id number])[facility])[address] [place] [address] MCH (RBC) [Entitic mass] 28.4 pg Normal 26.0-34.0 [facility] Comment on above: Performed By: #### L [id number] ####Shank Burnisher: SHEEBA MUSTAFA ([phone])[facility])[address] [place] [address] MCHC 32.0 % Normal 30.5-36.0 [facility] Comment on above: Performed By: #### L [id number] ####Shank Burnisher: SHEEBA MUSTAFA ([phone])[facility])[address] [place] [address] MCV (RBC) [Entitic vol] 88.6 fL Normal 77.0-99.0 [facility] Comment on above: Performed By: #### L [id number] ####Shank Burnisher: SHEEBA MUSTAFA ([phone])[facility])[address] [place] [address] Platelet mean volume (Bld) [Entitic vol] 9.4 fL Normal 9.0-12.7 [facility] Comment on above: Performed By: #### L [id number] ####Shank Burnisher: SHEEBA MUSTAFA ([phone])[facility])[address] [place] [address] Platelets (Bld) [#/Vol] 248 10*3/uL Normal 140-440 [facility] Comment on above: Performed By: #### L [id number] ####Shank Burnisher: SHEEBA MUSTAFA ([phone])[facility])[address] [place] [address] RBC (Bld) [#/Vol] 4.65 10*6/uL Normal 3.80-5.20 [facility] Comment on above: Performed By: #### L [id number] ####Shank Burnisher: SHEEBA MUSTAFA ([phone])[facility] ([facility])[address] [place] [address] WBC (Bld) [#/Vol] 6.6 10*3/uL Normal 3.6-10.7 [facility] Comment on above: Performed By: #### L [id number] ####Shank Burnisher: SHEEBA MUSTAFA ([phone])[address] CBC panel Auto (Bld)on 01-08 Erythrocyte distribution width (RBC) [Ratio] 15.9 % High 11.5 - 15.0 % [facility] Hematocrit (Bld) [Volume fraction] 41.2 % 35.0 - 47.0 % [facility] Hemoglobin (Bld) [Mass/Vol] 13.2 g/dL 11.7 - 16.0 g/dL [facility] Interpretation and review of laboratory results Abnormal [facility] MCH (RBC) [Entitic mass] 28.4 pg 26. 0 - 34.0 pg [facility] MCHC (RBC) [Mass/Vol] 32 % 30.5 - 36.0 % [facility] MCV (RBC) [Entitic vol] 88.6 fL 77.0 - 99.0 fL [facility] Platelet mean volume (Bld) [Entitic vol] 9.4 fL 9.0 - 12.7 fL [facility] Platelets (Bld) [#/Vol] 248 10*3/uL 140 - 440 10*3/uL [facility] RBC (Bld) [#/Vol] 4.65 10*6/uL 3.80 - 5.2 0 10*6/uL [facility] WBC (Bld) [#/Vol] 6.6 10*3/uL 3.6 - 10.7 10*3/uL [facility] COMPREHENSIVE METABOLIC PANE Hua 01-08-2025 Albumin [Mass/Vol] 3.1 g/dL Low 3.4-4.8 [facility] Comment on above: Performed By: #### L [id number] ####Shank Burnisher: SHEEBA MUSTAFA ([phone])[facility] ([facility])[address] [place] [address] ALP [Catalytic activity/Vol] 65 U/L Normal 40-150 [facility] Comment on above: Performed By: #### L [id number] ####Shank Burnisher: SHEEBA MUSTAFA ([phone])[facility] ([facility])[address] [place] [address] ALT [Catalytic activity/Vol] 17 U/L Normal <30 [facility] Comment on above: Performed By: #### L [id number] ####Shank Burnisher: SHEEBA MUSTAFA ([phone])[facility] ([facility])[address] [place] [address] Anion gap [Moles/Vol] 8 mmol/L Normal 3-13 [facility] Comment on above: Performed By: #### L [id number] ####Shank Burnisher: SHEEBA MUSTAFA ([phone])[facility] ([facility])[address] [place] [address] [place] AST [Catalytic activity/Vol] 25 U/L Normal <34 [facility] Comment on above: Performed By: #### L [id number] ####Shank Burnisher: SHEEBA MUSTAFA ([phone])[facility] ([facility])[address] [place] [address] [place] Bilirubin [Mass/Vol] 0.6 mg/dL Normal <1.2 [facility] Comment on above: Performed By: #### L [id number] ####Shank Burnisher: SHEEBA MUSTAFA ([phone])[facility] ([facility])[address] [place] [address] [place] Calcium [Mass/Vol] 9.2 mg/dL Normal 8.8-10.0 [facility] Comment on above: Performed By: #### L [id number] ####Shank Burnisher: SHEEBA MUSTAFA ([phone])[facility] ([facility])[address] [place] [address] Chloride [Moles/Vol] 111 mmol/L High 98-107 [facility] Comment on above: Performed By: #### L [id number] ####Shank Burnisher: SHEEBA MUSTAFA ([phone])[facility] [place] [address] CO2 [Moles/Vol] 19 mmol/L Low 23-31 [facility] Comment on above: Performed By: #### L [id number] ####Shank Burnisher: SHEEBA MUSTAFA ([phone])[facility] ([facility])[address] [place] [address] Creatinine [Mass/Vol] 0.86 mg/dL Normal 0.57-1.11 [facility] Comment on above: Performed By: #### L [id number] ####Shank Burnisher: SHEEBA MUSTAFA ([phone])[facility] ([facility])[address] [place] [address] [place] GLOMERULAR FILTRATION RATE ML/MIN/1.73 SQ M.PREDICTED 67.5 mL/min/1.73m*2 Normal >60.0 [facility] Comment on above: Result Comment: Calc ulation based on the Chronic Kidney Disease Epidemiology Collaboration (CKD-EPI) equation refit without adjustment for race Performed By: #### L [id number] ####Shank Burnisher: SHEEBA MUSTAFA ([phone])[facility])[address] [place] [address] [place] Glucose [Mass/Vol] 111 mg/dL Normal 82-115 [facility] Comment on above: Performed By: #### L [id number] ####Shank Burnisher: SHEEBA MUSTAFA ([id number])[facility])[address] [place] [address] [place] Potassium [Moles/Vol] 4.1 mmol/L Normal 3.5-5.1 [facility] Comment on above: Result Comment: Plas ma potassium values may be up to 0.5 mmol/L lower than serum values. Performed By: #### L [id number] ####Shank Burnisher: SHEEBA MUSTAFA ([phone])[facility] ([facility])[address] [place] [address] Protein [Mass/Vol] 6.5 g/dL Normal 6.4-8.3 [facility] Comment on above: Performed By: #### L [id number] ####Shank Burnisher: SHEEBA MUSTAFA ([phone])[facility] ([facility])[address] [place] [address] Sodium [Moles/Vol] 138 mmol/L Normal 136-145 [facility] Comment on above: Performed By: #### L [id number] ####Shank Burnisher: SHEEBA MUSTAFA ([phone])[facility] ([facility])[address] [place] [address] Urea nitrogen [Mass/Vol] 21 mg/dL Normal 9-23 [facility] Comment on above: Performed By: #### L [id number] ####Shank Burnisher: SHEEBA MUSTAFA ([phone])[facility] ([facility])[address] [place] [address] Comprehensive metabolic 1998 panelon 01-08-2025 Albumin [Mass/Vol] 3.1 g/dL Low 3.4 - 4.8 g/dL [facility] ALP [Catalytic activity/Vol] 65 U/L 40 - 150 U/L [facility] ALT [Catalytic activity/Vol] 17 U/L NINF - 30 U/L [facility] Anion gap [Moles/Vol] 8 mmol/L 3 - 13 mmol/L [facility] AST [Catalytic activity/Vol] 25 U/L NINF - 34 U/L [facility] Bilirubin [Mass/Vol] 0.6 mg/dL NINF - 1.2 mg/dL [facility] Calcium [Mass/Vol] 9.2 mg/dL 8.8 - 10. 0 mg/dL [facility] Chloride [Moles/Vol] 111 mmol/L High 98 - 10 7 mmol/L [facility] CO2 [Moles/Vol] 19 mmol/L Low 23 - 31 mmol/L [facility] Creatinine [Mass/Vol] 0.86 mg/dL 0.57 - 1.11 mg/dL [facility] GFR/1.73 sq M.predicted (S/P/Bld) [Vol rate/Area] 67.5 mL/min - PINF [facility] Comment on above: Calculation based on the Chronic Kidney Disease Epidemiology Collaboration (CKD-EPI) equation refit without adjustment for race Glucose [Mass/Vol] 111 mg/dL 82 - 115 mg/dL [facility] Interpretation and review of laboratory results Abnormal [facility] Potassium [Moles/Vol] 4.1 mmol/L 3.5 - 5.1 mmol/L [facility] Comment on above: Plasma potassium morro ues may be up to 0.5 mmol/L lower than serum values. Protein [Mass/Vol] 6.5 g/dL 6.4 - 8.3 g/dL [facility] Sodium [Moles/Vol] 138 mmol/L 136 - 145 mmol/L [facility] Urea nitrogen [Mass/Vol] 21 mg/dL 9 - 23 mg/d L [facility] Progress Noteon 01-08-2025 Progress Note Normal [facility] 30on 01-07-2025 30 Normal [facility] 30 Normal [facility] Bacteria identified Cx Nom ( U)Ordered By: Addis Lutz on 01-07-2025 Interpretation and review of laboratory results Normal [facility] CBC W Auto Differential pane l (Bld)Ordered By: Deshawn Granger on 01-07-2025 Basophils (Bld) [#/Vol] 0 10*3/uL 0.0 - 0.2 10*3/uL [facility] Basophils/100 WBC (Bld) 0.5 % 0.0 - 2.0 % [facility] Eosinophils (Bld) [#/Vol] 0.1 10*3/uL 0. 0 - 0.5 10*3/uL [facility] Eosinophils/100 WBC (Bld) 1.9 % 0.0 - 6.0 % [facility] Erythrocyte distribution width (RBC) [Ratio] 15.9 % High 11.5 - 15.0 % [facility] Hematocrit (Bld) [Volume fraction] 42.9 % 35.0 - 47.0 % [facility] Hemoglobin (Bld) [Mass/Vol] 13.4 g/dL 11.7 - 16.0 g/dL [facility] Immature granulocytes (Bld) [#/Vol] 0 10*3/uL NINF - 0.1 10*3/uL [facility] Immature granulocytes/100 WBC (Bld) 0.3 % 0.0 - 2.0 % [facility] Interpretation and review of laboratory results Abnormal [facility] th Lymphocytes (Bld) [#/Vol] 2.9 10*3/uL 1. 0 - 4.3 10*3/uL [facility] Lymphocytes/100 WBC (Bld) 49.1 % High 15 .0 - 45.0 % [facility] MCH (RBC) [Entitic mass] 27.5 pg 26. 0 - 34.0 pg [facility] MCHC (RBC) [Mass/Vol] 31.2 % 30.5 - 36.0 % [facility] MCV (RBC) [Entitic vol] 87.9 fL 77.0 - 99.0 fL [facility] Monocytes (Bld) [#/Vol] 0.6 10*3/uL 0.0 - 0.9 10*3/uL [facility] Monocytes/100 WBC (Bld) 9.5 % 5.0 - 13.0 % [facility] Neutrophils (Bld) [#/Vol] 2.2 10*3/uL 1. 8 - 7.5 10*3/uL [facility] Neutrophils/100 WBC (Bld) 38.7 % 38 .0 - 82.0 % [facility] Nucleated RBC/100 WBC (Bld) [Ratio] 0 % [facility] Platelet mean volume (Bld) [Entitic vol] 9.6 fL 9.0 - 12.7 fL [facility] Platelets (Bld) [#/Vol] 248 10*3/uL 140 - 440 10*3/uL [facility] RBC (Bld) [#/Vol] 4.88 10*6/uL 3.80 - 5.2 0 10*6/uL [facility] WBC (Bld) [#/Vol] 5.8 10*3/uL 3.6 - 10.7 10*3/uL [facility] CBC WITH AUTO DIFFERENTIALon 01-07-2025 Basophils (Bld) [#/Vol] 0.0 10*3/uL Normal 0.0-0.2 [facility] Comment on above: Performed By: #### L [id number] ####Shank Burnisher: SHEEBA MUSTAFA ([phone])[facility])[address] [place] [address] Basophils/100 WBC (Bld) 0.5 % Normal 0.0-2.0 [facility] Comment on above: Performed By: #### L [id number] ####Shank Burnisher: SHEEBA MUSTAFA ([phone])[facility] ([facility])[address] [place] [address] Eosinophils (Bld) [#/Vol] 0.1 10*3/uL Normal 0.0-0.5 [facility] Comment on above: Performed By: #### L [id number] ####Shank Burnisher: SHEEBA MUSTAFA ([phone])[facility])[address] [place] [address] Eosinophils/100 WBC (Bld) 1.9 % Normal 0.0-6.0 [facility] Comment on above: Performed By: #### L [id number] ####Shank Burnisher: SHEEBA MUSTAFA ([phone])[facility])[address] [place] [address] Erythrocyte distribution width (RBC) [Ratio] 15.9 % High 11.5-15.0 [facility] Comment on above: Performed By: #### L [id number] ####Shank Burnisher: SHEEBA MUSTAFA ([phone])[facility])[address] [place] [address] Hematocrit (Bld) [Volume fraction] 42.9 % Normal 35.0-47.0 [facility] Comment on above: Performed By: #### L [id number] ####Shank Burnisher: SHEEBA MUSTAFA ([phone])[facility])[address] [place] [address] Hemoglobin (Bld) [Mass/Vol] 13.4 g/dL Normal 11.7-16.0 [facility] Comment on above: Performed By: #### L [id number] ####Shank Burnisher: SHEEBA MUSTAFA ([phone])[facility])[address] [place] [address] IMMATURE GRANS % 0.3 % Normal 0.0-2.0 [facility] Comment on above: Performed By: #### L [id number] ####Shank Burnisher: SHEEBA MUSTAFA ([phone])[facility])[address] [place] [address] IMMATURE GRANS ABSOLUTE 0.0 10*3/uL Normal <0.1 [facility] Comment on above: Performed By: #### L [id number] ####Shank Burnisher: SHEEBA MUSTAFA ([phone])[address] Lymphocytes (Bld) [#/Vol] 2.9 10*3/uL Normal 1.0-4.3 [facility] Comment on above: Performed By: #### L [id number] ####Shank Burnisher: SHEEBA MUSTAFA ([phone])[facility])[address] [place] [address] Lymphocytes/100 WBC (Bld) 49.1 % High 15.0-45.0 [facility] Comment on above: Performed By: #### L [id number] ####Shank Burnisher: SHEEBA MUSTAFA ([phone])[facility])[address] [place] [address] MCH (RBC) [Entitic mass] 27.5 pg Normal 26.0-34.0 [facility] Comment on above: Performed By: #### L [id number] ####Shank Burnisher: SHEEBA MUSTAFA ([id number])[facility])[address] [place] [address] MCHC 31.2 % Normal 30.5-36.0 [facility] Comment on above: Performed By: #### L [id number] ####Shank Burnisher: SHEEBA MUSTAFA ([phone])[facility] ([facility])[address] [place] [address] MCV (RBC) [Entitic vol] 87.9 fL Normal 77.0-99.0 [facility] Comment on above: Performed By: #### L [id number] ####Shank Burnisher: SHEEBA MUSTAFA ([phone])[facility] ([facility])[address] [place] [address] Monocytes (Bld) [#/Vol] 0.6 10*3/uL Normal 0.0-0.9 [facility] Comment on above: Performed By: #### L [id number] ####Shank Burnisher: SHEEBA MUSTAFA ([phone])[facility] ([facility])[address] [place] [address] Monocytes/100 WBC (Bld) 9.5 % Normal 5.0-13.0 [facility] Comment on above: Performed By: #### L [id number] ####Shank Burnisher: SHEEBA MUSTAFA ([phone])[facility] ([facility])[address] [place] [address] NEUTROPHILS ABSOLUTE 2.2 10*3/uL Normal 1.8-7.5 [facility] Comment on above: Performed By: #### L [id number] ####Shank Burnisher: SHEEBA MUSTAFA ([phone])[facility] ([facility])[address] [place] [address] Neutrophils/100 WBC (Bld) 38.7 % Normal 38.0-82.0 [facility] Comment on above: Performed By: #### L [id number] ####Shank Burnisher: SHEEBA MUSTAFA ([phone])[facility] ([facility])[address] [place] [address] [place] NRBC 0.0 /100 WBCs Normal 0.0-2.0 [facility] Comment on above: Performed By: #### L [id number] ####Shank Burnisher: SHEEBA MUSTAFA ([phone])[facility] ([facility])[address] [place] [address] Platelet mean volume (Bld) [Entitic vol] 9.6 fL Normal 9.0-12.7 [facility] Comment on above: Performed By: #### L [id number] ####Shank Burnisher: SHEEBA MUSTAFA ([phone])[facility] ([facility])[address] [place] [address] Platelets (Bld) [#/Vol] 248 10*3/uL Normal 140-440 [facility] Comment on above: Performed By: #### L [id number] ####Shank Burnisher: SHEEBA MUSTAFA ([phone])[facility] ([facility])[address] [place] [address] RBC (Bld) [#/Vol] 4.88 10*6/uL Normal 3.80-5.20 [facility] Comment on above: Performed By: #### L [id number] ####Shank Burnisher: SHEEBA MUSTAFA ([phone])[facility] ([facility])[address] [place] [address] WBC (Bld) [#/Vol] 5.8 10*3/uL Normal 3.6-10.7 [facility] Comment on above: Performed By: #### L [id number] ####Shank Burnisher: SHEEBA MUSTAFA ([phone])[facility] ([facility])[address] [place] [address] COMPREHENSIVE METABOLIC PANE Hua 01-07-2025 Albumin [Mass/Vol] 3.1 g/dL Low 3.4-4.8 [facility] Comment on above: Performed By: #### L [id number] ####Shank Burnisher: SHEEBA MUSTAFA ([phone])[facility] ([facility])[address] [place] [address] ALP [Catalytic activity/Vol] 65 U/L Normal 40-150 [facility] Comment on above: Performed By: #### L [id number] ####Shank Burnisher: SHEEBA MUSTAFA ([phone])[facility] ([facility])[address] [place] [address] ALT [Catalytic activity/Vol] 20 U/L Normal <30 [facility] Comment on above: Performed By: #### L [id number] ####Shank Burnisher: SHEEBA MUSTAFA ([phone])[facility] [place] [address] Anion gap [Moles/Vol] 8 mmol/L Normal 3-13 [facility] Comment on above: Performed By: #### L [id number] ####Shank Burnisher: SHEEBA MUSTAFA ([phone])[facility] ([facility])[address] [place] [address] AST [Catalytic activity/Vol] 30 U/L Normal <34 [facility] Comment on above: Performed By: #### L [id number] ####Shank Burnisher: SHEEBA MUSTAFA ([phone])[facility] ([facility])[address] [place] [address] Bilirubin [Mass/Vol] 0.7 mg/dL Normal <1.2 [facility] Comment on above: Performed By: #### L [id number] ####Shank Burnisher: SHEEBA MUSTAFA ([phone])[facility] ([facility])[address] [place] [address] Calcium [Mass/Vol] 8.9 mg/dL Normal 8.8-10.0 [facility] Comment on above: Performed By: #### L [id number] ####Shank Burnisher: SHEEBA MUSTAFA ([phone])[facility] ([facility])[address] [place] [address] [place] Chloride [Moles/Vol] 111 mmol/L High 98-107 [facility] Comment on above: Performed By: #### L [id number] ####Shank Burnisher: SHEEBA MUSTAFA ([phone])[facility] [place] [address] [place] CO2 [Moles/Vol] 19 mmol/L Low 23-31 [facility] Comment on above: Performed By: #### L [id number] ####Shank Burnisher: SHEEBA MUSTAFA ([phone])[facility] ([facility])[address] [place] [address] [place] Creatinine [Mass/Vol] 0.88 mg/dL Normal 0.57-1.11 [facility] Comment on above: Performed By: #### L AB17 ####Shank Burnisher: SHEEBA MUSTAFA ([phone])[address] GLOMERULAR FILTRATION RATE ML/MIN/1.73 SQ M.PREDICTED 65.7 mL/min/1.73m*2 Normal >60.0 [facility] Comment on above: Result Comment: Calc ulation based on the Chronic Kidney Disease Epidemiology Collaboration (CKD-EPI) equation refit without adjustment for race Performed By: #### L AB17 ####Shank Burnisher: SHEEBA MUSTAFA ([phone])[address] Glucose [Mass/Vol] 102 mg/dL Normal 82-115 [facility] Comment on above: Performed By: #### L AB17 ####Shank Burnisher: SHEEBA MUSTAFA ([phone])[address] Potassium [Moles/Vol] 3.9 mmol/L Normal 3.5-5.1 [facility] Comment on above: Result Comment: [facility] potassium values may be up to 0.5 mmol/L lower than serum values. Performed By: #### L AB17 ####Shank Burnisher: SHEEBA MUSTAFA ([phone])[address] Protein [Mass/Vol] 6.4 g/dL Normal 6.4-8.3 [facility] Comment on above: Performed By: #### L AB17 ####Shank Burnisher: SHEEBA MUSTAFA ([phone])[facility] [place] [address] Sodium [Moles/Vol] 138 mmol/L Normal 136-145 [facility] Comment on above: Performed By: #### L AB17 ####Shank Burnisher: SHEEBA MUSTAFA ([phone])[address] Urea nitrogen [Mass/Vol] 16 mg/dL Normal 9-23 [facility] Comment on above: Performed By: #### L [id number] ####Shank Burnisher: SHEEBA MUSTAFA ([phone])[facility] ([facility])[address] [place] [address] Comprehensive metabolic 1998 panelon 01-07-2025 Albumin [Mass/Vol] 3.1 g/dL Low 3.4 - 4.8 g/dL [facility] ALP [Catalytic activity/Vol] 65 U/L 40 - 150 U/L [facility] ALT [Catalytic activity/Vol] 20 U/L NINF - 30 U/L [facility] Anion gap [Moles/Vol] 8 mmol/L 3 - 13 mmol/L [facility] AST [Catalytic activity/Vol] 30 U/L NINF - 34 U/L [facility] Bilirubin [Mass/Vol] 0.7 mg/dL NINF - 1.2 mg/dL [facility] Calcium [Mass/Vol] 8.9 mg/dL 8.8 - 10. 0 mg/dL [facility] Chloride [Moles/Vol] 111 mmol/L High 98 - 10 7 mmol/L [facility] CO2 [Moles/Vol] 19 mmol/L Low 23 - 31 mmol/L [facility] Creatinine [Mass/Vol] 0.88 mg/dL 0.57 - 1.11 mg/dL [facility] GFR/1.73 sq M.predicted (S/P/Bld) [Vol rate/Area] 65.7 mL/min - PINF [facility] Comment on above: Calculation based on the Chronic Kidney Disease Epidemiology Collaboration (CKD-EPI) equation refit without adjustment for race Glucose [Mass/Vol] 102 mg/dL 82 - 115 mg/dL [facility] Interpretation and review of laboratory results Abnormal [facility] th Potassium [Moles/Vol] 3.9 mmol/L 3.5 - 5.1 mmol/L [facility] Comment on above: Plasma potassium morro ues may be up to 0.5 mmol/L lower than serum values. Protein [Mass/Vol] 6.4 g/dL 6.4 - 8.3 g/dL [facility] Sodium [Moles/Vol] 138 mmol/L 136 - 145 mmol/L [facility] Urea nitrogen [Mass/Vol] 16 mg/dL 9 - 23 mg/d L [facility] Laboratory - Microbiology an d Antimicrobial susceptibilityOrdered By: Addis Lutz on 01-07-2025 Bacteria identified Cx Nom (U) Normal urogenital shonda present [facility] Progress Noteon 01-07-2025 Progress Note Normal [facility] Progress Note Normal [facility] Progress Note Nutrition rescreen completed. Chart reviewed. Patient to be monitored and followed by the diet gastrointestinal technician. Lisa Munroe, DT Normal [facility] Progress Note Normal [facility] CBC W Auto Differential pane l (Bld)Ordered By: Travis Tee on 01-06-2025 Erythrocyte distribution width (RBC) [Ratio] 15.7 % High 11.5 - 15.0 % [facility] Hematocrit (Bld) [Volume fraction] 40.7 % 35.0 - 47.0 % [facility] Hemoglobin (Bld) [Mass/Vol] 13.3 g/dL 11.7 - 16.0 g/dL [facility] MCH (RBC) [Entitic mass] 28.5 pg 26. 0 - 34.0 pg [facility] MCHC (RBC) [Mass/Vol] 32.7 % 30.5 - 36.0 % [facility] MCV (RBC) [Entitic vol] 87.3 fL 77.0 - 99.0 fL [facility] Nucleated RBC/100 WBC (Bld) [Ratio] 0 % [facility] Platelet mean volume (Bld) [Entitic vol] 9.2 fL 9.0 - 12.7 fL [facility] Comment on above: MPV is a calculated measurement using platelet volume ratio Platelets (Bld) [#/Vol] 271 10*3/uL 140 - 440 10*3/uL [facility] RBC (Bld) [#/Vol] 4.66 10*6/uL 3.80 - 5.2 0 10*6/uL [facility] WBC (Bld) [#/Vol] 6.2 10*3/uL 3.6 - 10.7 10*3/uL [facility] CBC WITH AUTO DIFFERENTIALon 01-06-2025 Erythrocyte distribution width (RBC) [Ratio] 15.7 % High 11.5-15.0 [facility] Comment on above: Performed By: #### Albert [id number], [id number] ####Shank Burnisher: SHEEBA MUSTAFA ([id number])[facility])[address] [place] [address] Hematocrit (Bld) [Volume fraction] 40.7 % Normal 35.0-47.0 [facility] Comment on above: Performed By: #### Albert [id number], [id number] ####Shank Burnisher: SHEEBA MUSTAFA ([id number])[facility] ([facility])[address] [place] [address] Hemoglobin (Bld) [Mass/Vol] 13.3 g/dL Normal 11.7-16.0 [facility] Comment on above: Performed By: #### Albert [id number], [id number] ####Shank Burnisher: SHEEBA MUSTAFA ([phone])[facility] ([facility])[address] [place] [address] MCH (RBC) [Entitic mass] 28.5 pg Normal 26.0-34.0 [facility] Comment on above: Performed By: #### Albert [id number], [id number] ####Shank Burnisher: SHEEBA MUSTAFA ([phone])[facility] ([facility])[address] [place] [address] MCHC 32.7 % Normal 30.5-36.0 [facility] Comment on above: Performed By: #### Albert [id number], [id number] ####Shank Burnisher: SHEEBA MUSTAFA ([phone])[facility] ([facility])[address] MCV (RBC) [Entitic vol] 87.3 fL Normal 77.0-99.0 [facility] Comment on above: Performed By: #### L [id number], [id number] ####Shank Burnisher: SHEEBA MUSTAFA ([phone])[facility] ([facility])[address] NRBC 0.0 /100 WBCs Normal 0.0-2.0 [facility] Comment on above: Performed By: #### L [id number], [id number] ####Shank Burnisher: SHEEBA MUSTAFA ([phone])[facility] ([facility])[address] [place] [address] Platelet mean volume (Bld) [Entitic vol] 9.2 fL Normal 9.0-12.7 [facility] Comment on above: Result Comment: MPV is a calculated measurement using platelet volume ratio Performed By: #### L [id number], [id number] ####Shank Burnisher: SHEEBA MUSTAFA ([phone])[facility] ([facility])[address] [place] [address] Platelets (Bld) [#/Vol] 271 10*3/uL Normal 140-440 [facility] Comment on above: Performed By: #### Albert CONNOR, [id number] ####Shank Burnisher: SHEEBA MUSTAFA ([phone])[facility] ([facility])[address] [place] [address] RBC (Bld) [#/Vol] 4.66 10*6/uL Normal 3.80-5.20 [facility] Comment on above: Performed By: #### Albert [id number], [id number] ####Shank Burnisher: SHEEBA MUSTAFA ([phone])[facility])[address] [place] [address] [place] WBC (Bld) [#/Vol] 6.2 10*3/uL Normal 3.6-10.7 [facility] Comment on above: Performed By: #### L [id number], [id number] ####Shank Burnisher: SHEEBA MSUTAFA ([id number])[facility])[address] [place] [address] COMPLETE URINALYSIS WITH REF MAGNOLIA TO CULTUREon 01-06-2025 AMORPHOUS PHOSPHATES (#/HPF) IN URINE Few Abnormal Negative [facility] Comment on above: Performed By: #### L [id number] ####Shank Burnisher: SHEEBA MUSTAFA ([phone])[facility] ([facility])[address] [place] [address] [place] BACTERIA (#/HPF) IN URINE Moderate Abnormal Negative [facility] Comment on above: Performed By: #### L [id number] ####Shank Burnisher: SHEEBA MUSTAFA ([phone])[facility])[address] [place] [address] [place] BILIRUBIN, TOTAL PRESENCE IN URINE Negative Normal Negative [facility] Comment on above: Performed By: #### L [id number] ####Shank Burnisher: SHEEBA MUSTAFA ([phone])[facility] ([facility])[address] [place] [address] Clarity (U) Clear Normal Clear [facility] Comment on above: Performed By: #### L [id number] ####Shank Burnisher: SHEEBA MUSTAFA ([phone])[facility])[address] [place] [address] [place] Color (U) Yellow Normal Lt. Yellow [facility] Comment on above: Performed By: #### L [id number] ####Shank Burnisher: SHEEBA MUSTAFA ([phone])[facility])[address] [place] [address] [place] GLUCOSE (MG/DL) IN URINE Normal Normal Normal (<70 ) [facility] Comment on above: Performed By: #### L [id number] ####Shank Burnisher: SHEEBA MUSTAFA ([phone])[facility] ([facility])[address] [place] [address] [place] HEMOGLOBIN PRESENCE IN URINE 0.06 mg/dL Abnormal Negative [facility] Comment on above: Performed By: #### L [id number] ####Shank Burnisher: SHEEBA MUSTAFA ([phone])[facility])[address] [place] [address] [place] Ketones Ql (U) Negative Normal Negative [facility] Comment on above: Performed By: #### L [id number] ####Shank Burnisher: SHEEBA MUSTAFA ([id number])[facility] ([facility])[address] LEUKOCYTE ESTERASE PRESENCE IN URINE BY TEST STRIP 75 Cathy/uL Abnormal Negative [facility] Comment on above: Performed By: #### L [id number] ####Shank Burnisher: SHEEBA MUSTAFA ([id number])[facility] ([facility])[address] MUCUS (#/LPF) IN URINE SEDIMENT Negative Normal Negative [facility] Comment on above: Performed By: #### L [id number] ####Shank Burnisher: SHEEBA MUSTAFA ([id number])[facility])[address] [place] [address] [place] NITRITE PRESENCE IN URINE Negative Normal Negative [facility] Comment on above: Performed By: #### L [id number] ####Shank Burnisher: SHEEBA MUSTAFA ([id number])[facility] ([facility])[address] pH (U) 7.0 [pH] Normal 5.0-8.0 [facility] Comment on above: Performed By: #### L [id number] ####Shank Burnisher: SHEEBA MUSTAFA ([id number])[facility] ([facility])[address] Protein (U) [Mass/Vol] Negative Normal Negative [facility] Comment on above: Performed By: #### L [id number] ####Shank Burnisher: SHEEBA MUSTAFA ([id number])[facility] ([facility])[address] [place] [address] [place] RBC (#/HPF) IN URINE SEDIMENT 0-2 Normal 0-2 [facility] Comment on above: Performed By: #### L [id number] ####Shank Burnisher: SHEEBA MUSTAFA ([id number])[facility] ([facility])[address] [place] [address] Specific gravity (U) [Rel density] 1.013 Normal 1.005-1.030 [facility] Comment on above: Result Comment: HUSSAIN R COMMENTS:A specimen with <=10 WBC is not consistent with inflammation. This specimen will not reflex to a urine culture. Performed By: #### L [id number] ####Shank Burnisher: SHEEBA MUSTAFA ([id number])[facility] ([facility])[address] [place] [address] Specimen volume (U) 12 mL Normal [facility] Comment on above: Performed By: #### L [id number] ####Shank Burnisher: SHEEBA MUSTAFA ([id number])[facility] ([facility])[address] [place] [address] [place] SQUAMOUS EPITHELIAL CELLS (#/HPF) IN URINE SEDIMENT 3-5 Normal 3-5 [facility] Comment on above: Performed By: #### L [id number] ####Shank Burnisher: SHEEBA MUSTAFA ([phone])[facility] ([facility])[address] [place] [address] UROBILINOGEN (MG/DL) IN URINE Normal Normal Normal (0-1) [facility] Comment on above: Performed By: #### L [id number] ####Shank Burnisher: SHEEBA MUSTAFA ([id number])[facility] ([facility])[address] [place] [address] WBC (LEUKOCYTE) (#/HPF) IN URINE SEDIMENT 3-5 Normal 0-5 [facility] Comment on above: Performed By: #### L [id number] ####Shank Burnisher: SHEEBA MUSTAFA ([phone])[facility] ([facility])[address] COMPREHENSIVE METABOLIC PANE Hua 01-06-2025 Albumin [Mass/Vol] 3.3 g/dL Low 3.4-4.8 [facility] Comment on above: Performed By: #### L AB17, LAB99, [id number] ####Shank Burnisher: SHEEBA MUSTAFA ([phone])[facility] ([facility])[address] ALP [Catalytic activity/Vol] 70 U/L Normal 40-150 [facility] Comment on above: Performed By: #### Albert AB17, LAB99, [id number] ####Shank Burnisher: SHEEBA MUSTAFA ([phone])[facility] ([facility])[address] [place] [address] [place] ALT [Catalytic activity/Vol] 24 U/L Normal <30 [facility] Comment on above: Performed By: #### Albert AB17, LAB99, [id number] ####Shank Burnisher: SHEEBA MUSTAFA ([phone])[facility] ([facility])[address] Anion gap [Moles/Vol] 8 mmol/L Normal 3-13 [facility] Comment on above: Performed By: #### Albert AB17, LAB99, [id number] ####Shank Burnisher: SHEEBA MUSTAFA ([phone])[facility] ([facility])[address] [place] [address] [place] AST [Catalytic activity/Vol] 31 U/L Normal <34 [facility] Comment on above: Performed By: #### L AB17, LAB99, [id number] ####Shank Burnisher: SHEEBA MUSTAFA ([phone])[facility] ([facility])[address] [place] [address] [place] Bilirubin [Mass/Vol] 0.6 mg/dL Normal <1.2 [facility] Comment on above: Performed By: #### L AB17, LAB99, [id number] ####Shank Burnisher: SHEEBA MUSTAFA ([id number])[facility] ([facility])[address] [place] [address] [place] Calcium [Mass/Vol] 9.0 mg/dL Normal 8.8-10.0 [facility] Comment on above: Performed By: #### Albert AB17, LAB99, [id number] ####Shank Burnisher: SHEEBA MUSTAFA ([id number])[facility] ([facility])[address] [place] [address] [place] Chloride [Moles/Vol] 105 mmol/L Normal 98-107 [facility] Comment on above: Performed By: #### Albert AB17, LAB99, [id number] ####Shank Burnisher: SHEEBA MUSTAFA ([id number])[facility] ([facility])[address] [place] [address] [place] CO2 [Moles/Vol] 23 mmol/L Normal 23-31 [facility] Comment on above: Performed By: #### Albert JUARES, LAB99, [id number] ####Shank Burnisher: SHEEBA MUSTAFA ([id number])[facility] ([facility])[address] [place] [address] [place] Creatinine [Mass/Vol] 1.02 mg/dL Normal 0.57-1.11 [facility] Comment on above: Performed By: #### Albert AB17, LAB99, [id number] ####Shank Burnisher: SHEEBA MUSTAFA ([id number])[facility] ([facility])[address] [place] [address] [place] GLOMERULAR FILTRATION RATE ML/MIN/1.73 SQ M.PREDICTED 55.0 mL/min/1.73m*2 Low >60.0 [facility] Comment on above: Result Comment: Calc ulation based on the Chronic Kidney Disease Epidemiology Collaboration (CKD-EPI) equation refit without adjustment for race Performed By: #### Albert AB17, LAB99, [id number] ####Shank Burnisher: SHEEBA MUSTAFA ([phone])[facility] ([facility])[address] [place] [address] [place] Glucose [Mass/Vol] 108 mg/dL Normal 82-115 [facility] Comment on above: Performed By: #### L AB17, LAB99, [id number] ####Shank Burnisher: SHEEBA MUSTAFA ([phone])[facility] ([facility])[address] Potassium [Moles/Vol] 3.9 mmol/L Normal 3.5-5.1 [facility] Comment on above: Result Comment: [facility] potassium values may be up to 0.5 mmol/L lower than serum values. Performed By: #### L AB17, LAB99, [id number] ####Shank Burnisher: SHEEBA MUSTAFA ([phone])[facility] ([facility])[address] [place] [address] [place] Protein [Mass/Vol] 6.9 g/dL Normal 6.4-8.3 [facility] Comment on above: Performed By: #### Albert AB17, LAB99, [id number] ####Shank Burnisher: SHEEBA MUSTAFA ([id number])[facility] ([facility])[address] [place] [address] [place] Sodium [Moles/Vol] 136 mmol/L Normal 136-145 [facility] Comment on above: Performed By: #### Albert AB17, LAB99, [id number] ####Shank Burnisher: SHEEBA MUSTAFA ([phone])[facility] ([facility])[address] [place] [address] [place] Urea nitrogen [Mass/Vol] 25 mg/dL High 9-23 [facility] Comment on above: Performed By: #### L AB17, LAB99, [id number] ####Shank Burnisher: SHEEBA MUSTAFA ([phone])[facility] ([facility])[address] [place] [address] CT ABDOMEN PELVIS W CONTRAST on 01-06-2025 CT ABDOMEN PELVIS W CONTRAST Normal [facility] CT Abdomen and Pelvis W cont rast Susan 01-06-2025 1. 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 2. Fatty liver 3. Sigmoid diverticulosis Report Dictated on Electronically Signed By: Dion Valenzuela MD Electronically Signed Date/Time: 01/06/2025 3:00 AM [facility] [employer] [facility] Name[facility]MER [facility] 1940 [id number] Exam Date/Time: 01/06/2025 01:53 Procedure: CT ABDOMEN [...] 04/10/2024. Degenerative change also noted at L5-S1. [facility] Dion Valenzuela MD - 01/06/2025 Patient Name: SOMMER FRIEDMAN : 1940 [facility]#: [id number] Exam Date/Time: 01/06/2025 01:53 Procedure: CT ABDOMEN [...] Electronically Signed Date/Time: 01/06/2025 3:00 AM EDT [facility] Radiology Study observation (narrative) [facility] alth CT Abdomen and Pelvis W cont rast IVOrdered By: Dion Valenzuela on 01-06-2025 [facility] Work Phone: Comprehensive metabolic 1998 panelon 01-06-2025 Albumin [Mass/Vol] 3.3 g/dL Low 3.4 - 4.8 g/dL [facility] ALP [Catalytic activity/Vol] 70 U/L 40 - 150 U/L [facility] ALT [Catalytic activity/Vol] 24 U/L NINF - 30 U/L [facility] Anion gap [Moles/Vol] 8 mmol/L 3 - 13 mmol/L [facility] AST [Catalytic activity/Vol] 31 U/L NINF - 34 U/L [facility] Bilirubin [Mass/Vol] 0.6 mg/dL NINF - 1.2 mg/dL [facility] Calcium [Mass/Vol] 9 mg/dL 8.8 - 10. 0 mg/dL [facility] Chloride [Moles/Vol] 105 mmol/L 98 - 10 7 mmol/L [facility] CO2 [Moles/Vol] 23 mmol/L 23 - 31 mmol/L [facility] Creatinine [Mass/Vol] 1.02 mg/dL 0.57 - 1.11 mg/dL [facility] GFR/1.73 sq M.predicted (S/P/Bld) [Vol rate/Area] 55 mL/min Low - PINF [facility] Comment on above: Calculation based on the Chronic Kidney Disease Epidemiology Collaboration (CKD-EPI) equation refit without adjustment for race Glucose [Mass/Vol] 108 mg/dL 82 - 115 mg/dL [facility] Potassium [Moles/Vol] 3.9 mmol/L 3.5 - 5.1 mmol/L [facility] Comment on above: Plasma potassium morro ues may be up to 0.5 mmol/L lower than serum values. Protein [Mass/Vol] 6.9 g/dL 6.4 - 8.3 g/dL [facility] Sodium [Moles/Vol] 136 mmol/L 136 - 145 mmol/L [facility] Urea nitrogen [Mass/Vol] 25 mg/dL High 9 - 23 mg/d [facility] [facility] 01-[facility]2025 Consult Normal [facility] ED Nursing Noteon 01-06-2025 ED Nursing Note Report called to BETTY Banda RN Normal [facility] LACTIC ACID WITH REFLEXon Lactate [Moles/Vol] 0.9 mmol/L Normal 0.5-2.2 [facility] Comment on above: Performed By: #### L [id number] ####Shank Burnisher: SHEEBA MUSTAFA ([phone])[facility] ARIZMENDI RITTMAN (SWRLAB)[address] LIPASEon 01-06-2025 Lipase [Catalytic activity/Vol] 112 U/L High <55 [facility] Comment on above: Performed By: #### L [id number], [id number], [id number] ####Shank Burnisher: SHEEBA MUSTAFA ([phone])[facility] NIXMITRA RITTMAN (SWRLAB)[address] [place] [address] Laboratory - Chemistry and C hemistry - challengeon 01-06-2025 TSH Qn 2.81 m[IU]/L [facility] Lactate [Moles/Vol] 0.9 mmol/L 0.5 - 2. 2 mmol/L [facility] Lipase [Catalytic activity/Vol] 112 U/L High NINF - 55 U/L [facility] MANUAL DIFFERENTIALon 2024 ANISOCYTOSIS PRESENCE IN BLOOD BY LIGHT MICROSCOPY Slight Abnormal (none) [facility] Comment on above: Performed By: #### L [id number], [id number] ####Shank Burnisher: SHEEBA MUSTAFA ([phone])[facility]ZMENDI [facility] (SWRLAB)[address] [place] [address] CELLS COUNTED TOTAL (#) IN BLOOD 100 Normal [facility] Comment on above: Performed By: #### L [id number], [id number] ####Shank Burnisher: SHEEBA MUSTAFA ([phone])[facility] GOLDMANMITRA RITTMAN (SWRLAB)[address] [place] [address] [place] EOSINOPHILS (10*3/UL) IN BLOOD BY MANUAL COUNT 0.1 10*3/uL Normal 0.0-0.5 [facility] Comment on above: Performed By: #### L [id number], [id number] ####Shank Burnisher: SHEEBA MUSTAFA ([phone])[facility]ALTHA [place] [facility] (SWRLAB)[address] [place] [address] [place] EOSINOPHILS TOTAL PER COUNTED LEUKOCYTES BY MANUAL COUNT 1 Normal 0-1 [facility] Comment on above: Performed By: #### L [id number], [id number] ####Shank Burnisher: SHEEBA MUSTAFA ([phone])[facility] [place] (SWRLAB)[address] [place] [address] [place] EOSINOPHILS/100 LEUKOCYTES IN BLOOD BY MANUAL COUNT 1 % Normal 0-6 [facility] Comment on above: Performed By: #### L [id number], [id number] ####Shank Burnisher: SHEEBA MUSTAFA ([phone])[facility] [place] (SWRLAB)[address] [place], [place] [address] [place] LEUKOCYTES (10*3/UL) NUCLEATED ERYTHROCYTE ADJUST 6.2 10*3/uL Normal 3.6-10.7 [facility] Comment on above: Performed By: #### L [id number], [id number] ####Shank Burnisher: SHEEBA MUSTAFA ([phone])[facility] IMTRA RITTMAN (SWRLAB)[address] [place], [place] [address] [place] LYMPHOCYTES (10*3/UL) IN BLOOD BY MANUAL COUNT 2.8 10*3/uL Normal 1.0-4.3 [facility] Comment on above: Performed By: #### L [id number], [id number] ####Shank Burnisher: SHEEBA MUSTAFA ([phone])[facility] [place] (SWRLAB)[address] [place], [place] [address] [place] LYMPHOCYTES TOTAL PER COUNTED LEUKOCYTES BY MANUAL COUNT 45 Normal [facility] Comment on above: Performed By: #### L [id number], [id number] ####Shank Burnisher: SHEEBA MUSTAFA ([phone])[facility] [place] (SWRLAB)[address] [place] [address] [place] LYMPHOCYTES VARIANT/100 LEUKOCYTES IN BLOOD 2 % High <=0 [facility] Comment on above: Performed By: #### L [id number], [id number] ####Shank Burnisher: SHEEBA MUSTAFA ([phone])[facility] [place] (SWRLAB)[address] [place] [address] [place] LYMPHOCYTES/100 LEUKOCYTES IN BLOOD BY MANUAL COUNT 45 % Normal 15-45 [facility] Comment on above: Performed By: #### L [id number], [id number] ####Shank Burnisher: SHEEBA MUSTAFA ([phone])[facility] [place] (SWRLAB)[address] [place] [address] [place] MONOCYTES (10*3/UL) IN BLOOD BY MANUAL COUNT 0.6 10*3/uL Normal 0.0-0.9 [facility] Comment on above: Performed By: #### L [id number], [id number] ####Shank Burnisher: SHEEBA MUSTAFA ([phone])[facility] [place] (SWRLAB)[address] [place] [address] [place] MONOCYTES TOTAL PER COUNTED LEUKOCYTES BY MANUAL COUNT 9 Normal [facility] Comment on above: Performed By: #### L [id number], [id number] ####Shank Burnisher: SHEEBA MUSTAFA ([phone])[facility] [place] (SWRLAB)[address] [place] [address] [place] MONOCYTES/100 LEUKOCYTES IN BLOOD BY MANUAL COUNT 9 % Normal 5-13 [facility] Comment on above: Performed By: #### L [id number], [id number] ####Shank Burnisher: SHEEBA MUSTAFA ([phone])[facility] [place] [facility] (SWRLAB)[address] [place] [address] [place] NEUTROPHILS (SEGS+BANDS) (10*3/UL) BY MANUAL COUNT 2.7 10*3/uL Normal 1.8-7.0 [facility] Comment on above: Performed By: #### L [id number], [id number] ####Shank Burnisher: SHEEBA MUSTAFA ([phone])JCARLOSA [place]RA R[place]TMAN (SWRLAB)[address] [place] [address] [place] NEUTROPHILS TOTAL PER COUNTED LEUKOCYTES BY MANUAL COUNT 43 Normal [facility] Comment on above: Performed By: #### L [id number], [id number] ####Shank Burnisher: SHEEBA MUSTAFA ([phone])[facility] [place] (SWRLAB)[address] [place] [address] [place] PLATELETS GIANT PRESENCE IN BLOOD BY LIGHT MICROSCOPY Slight Abnormal (none) [facility] Comment on above: Performed By: #### L [id number], [id number] ####Shank Burnisher: SHEEBA MUSTAFA ([phone])[facility] [place] (SWRLAB)[address] [place] [address] [place] SEGEMENTED NEUTROPHILS/100 LEUKOCYTES BY MANUAL COUNT 43 % Normal 38-82 [facility] Comment on above: Performed By: #### L [id number], [id number] ####Shank Burnisher: SHEEBA MUSTAFA ([phone])[facility] [place] [facility] (SWRLAB)[address] [place] [address] [place] TOXIC GRANULES PRESENCE IN BLOOD BY LIGHT MICROSCOPY (PRESENT) Present Abnormal (none) [facility] Comment on above: Performed By: #### L [id number], [id number] ####Shank Burnisher: SHEEBA MUSTAFA ([phone])[facility] [place] [facility] (SWRLAB)[address] [place] [address] [place] VARIANT LYMPHOCYTES (10*3/UL) IN BLOOD BY MANUAL COUNT 0.1 10*3/uL High <=0.0 [facility] Comment on above: Performed By: #### L [id number], [id number] ####Shank Burnisher: SHEEBA MUSTAFA ([phone])[facility] [place] [facility] (SWRLAB)[address] [place] [address] [place] VARIANT LYMPHOCYTES TOTAL PER COUNTED LEUKOCYTES BY MANUAL COUNT 2 Normal [facility] Comment on above: Performed By: #### L [id number], [id number] ####Shank Burnisher: SHEEBA MUSTAFA ([phone])[facility] [place] (SWRLAB)[address] [place] [address] Manual differential performe d Ql (Bld)on 01-06-2025 Anisocytosis Ql (Bld) Slight Abnormal (none) [facility] Atypical Lymphocytes Manual 2 [facility] Cells Counted Total (Bld) [#] 100 {cells} [facility] Eosinophils (Bld) [#/Vol] 0.1 10*3/uL 0. 0 - 0.5 10*3/uL [facility] Eosinophils Manual 1 0 - 1 [facility] Eosinophils/100 WBC (Bld) 1 % 0 - 6 % [facility] Giant platelets LM Ql (Bld) Slight Abnormal (none) [facility] Lymphocytes (Bld) [#/Vol] 2.8 10*3/uL 1. 0 - 4.3 10*3/uL [facility] Lymphocytes Manual 45 [facility] Lymphocytes/100 WBC (Bld) 45 % 15 - 45 % [facility] Monocytes (Bld) [#/Vol] 0.6 10*3/uL 0.0 - 0.9 10*3/uL [facility] Monocytes Manual 9 [facility] alth Monocytes/100 WBC (Bld) 9 % 5 - 13 % [facility] Neutrophils (Bld) [#/Vol] 2.7 10*3/uL 1. 8 - 7.0 10*3/uL [facility] Neutrophils Manual 43 [facility] Segmented neutrophils/100 WBC (Bld) 43 % 38 - 82 % [facility] Toxic granules LM Ql (Bld) Present Abnormal (none) [facility] Variant lymphocytes (Bld) [#/Vol] 0.1 10*3/uL High NINF - 0.0 10*3/uL [facility] Variant lymphocytes/100 WBC (Bld) 2 % High NINF - 0 % [facility] WBC corrected for nucl RBC (Bld) [#/Vol] 6.2 10*3/uL 3.6 - 10.7 10*3/uL [facility] No Panel InformationOrdered By: Travis Daily on 01-06-2025 Interpretation and review of laboratory results Abnormal [facility] No Panel Informationon 01-06 Interpretation and review of laboratory results Normal [facility] Interpretation and review of laboratory results Abnormal [facility] THYROID STIMULATING HORMONEo n 01-06-2025 THYROID STIMULATING HORMONE 2.81 uIU/mL Normal 0.35-4.94 [facility] Comment on above: Performed By: #### L [id number], [id number], [id number] ####Shank Burnisher: SHEEBA MUSTAFA ([phone])[facility] (SWRLAB)[address] [place] [address] TSH Qnon 01-06-2025 Interpretation and review of laboratory results Normal [facility] URINE CULTUREon 01-06-2025 Bacteria identified Cx Nom (U) Normal [facility] Comment on above: Performed By: #### L [id number] ####Shank Burnisher: SHEEBA MUSTAFA ([phone])[facility] (SAC[facility])[address] [place] [address] Urinalysis complete panel (U )on 01-06-2025 Amorphous Phosphates, Urine Few Abnormal Negative /HPF [facility] Bacteria LM.HPF (Urine sed) [#/Area] Moderate Abnormal Negative /HPF [facility] Bilirubin Ql (U) Negative Negative mg/dL [facility] Clarity (U) Clear Clear [facility] Color (U) Yellow Lt. Yellow [facility] Epithelial cells.squamous LM.HPF (Urine sed) [#/Area] 3-5 [facility] Glucose Ql (U) Normal Normal (<70) mg/dL [facility] Hemoglobin Ql (U) 0.06 mg/dL Abnormal Negative [facility] Interpretation and review of laboratory results Abnormal [facility] Ketones (U) [Mass/Vol] Negative Negat jaciel mg/dL [facility] Leukocyte esterase Test strip Ql (U) 75 Abnormal Negative Cathy/uL [facility] Mucus LM.HPF (Urine sed) [#/Area] Negative Negative /LPF [facility] Nitrite Ql (U) Negative Negative [facility] pH (U) 7.0 [pH] 5.0 - 8.0 pH [facility] Protein (U) [Mass/Vol] Negative Negat jaciel mg/dL [facility] RBC LM.HPF (Urine sed) [#/Area] 0-2 [facility] Specific gravity (U) [Rel density] 1.013 1.005 - 1.030 [facility] Urobilinogen (U) [Mass/Vol] Normal Normal (0-1) mg/dL [facility] Volume, Urine 12 mL [facility] WBC LM.HPF (Urine sed) [#/Area] 3-5 [facility] A specimen with <=10 WBC is not consistent with inflammation. This specimen will not reflex to a urine culture. [facility] ED Nursing Noteon 01-05-2025 ED Nursing Note Normal [facility] ED Provider Noteon ED Provider Note [facility] Anion gap in Serum or Plasma Ordered By: Kathi Juarez on 12-30-2024 Anion gap [Moles/Vol] 13 mmol/L 5-15 [facility] BUN/creatinine ratioOrdered By: Kathi Juarez on 12-30-2024 Urea nitrogen/Creatinine [Mass ratio] 22.1 mg/mg High 10-20 [facility] Carbon dioxide, total [Moles /volume] in Central venous bloodOrdered By: Kathi Juarez on 12-30-2024 CO2 [Moles/Vol] 19.3 mmol/L Low 21.0-32.0 [facility] Chloride assayOrdered By: Emir Juarez on 12-30-2024 Chloride [Moles/Vol] 102 mmol/L 98-108 [facility] Glomerular filtration rate ( GFR) estimation/1.73 sq m using serum, plasma, or whole bOrdered By: Kathi Juarez on 12-30-2024 GFR/1.73 sq M.predicted among non-blacks MDRD (S/P/Bld) [Vol rate/Area] 55 mL/min/{1.73_m2} Low >60 [facility] Comment on above: mL/min/1.73m2 CKD-EP I Creatinine Equation (2020) Potassium measurement (mass/ volume)Ordered By: Kathi Juarez on 12-30-2024 Potassium (Unsp spec) [Mass/Vol] 4.0 mmol/L 3.3-5.1 [facility] Serum creatinine measurement (mass/volume)Ordered By: Kathi Juarez on 12-30-2024 Creatinine [Mass/Vol] 1.02 mg/dL 0.70-1.20 [facility] Serum glucose measurement (m ass/volume)Ordered By: Kathi Juarez on 12-30-2024 Glucose [Mass/Vol] 101 mg/dL High 70-99 [facility] Serum or plasma calcium adam urement (mass/volume)Ordered By: Kathi Juarez on 12-30-2024 Calcium [Mass/Vol] 9.6 mg/dL 7.6-11.0 [facility] Serum or plasma urea nitroge n measurement (mass/volume)Ordered By: Kathi Juarez on 12-30-2024 Urea nitrogen [Mass/Vol] 23 mg/dL High 4-19 [facility] Sodium levelOrdered By: Fuentes Juarez on 12-30-2024 Sodium [Moles/Vol] 135 mmol/L 133-145 [facility] Anion gap in Serum or Plasma Ordered By: Kathi Juarez on 12-23-2024 Anion gap [Moles/Vol] 12 mmol/L 5-15 [facility] BUN/creatinine ratioOrdered By: Kathi Juarez on 12-23-2024 Urea nitrogen/Creatinine [Mass ratio] 19.6 mg/mg 10-20 [facility] Carbon dioxide, total [Moles /volume] in Central venous bloodOrdered By: Kathi Juarez on 12-23-2024 CO2 [Moles/Vol] 21.1 mmol/L 21.0-32.0 [facility] Chloride assayOrdered By: Emir Juarez on 12-23-2024 Chloride [Moles/Vol] 102 mmol/L 98-108 [facility] Glomerular filtration rate ( GFR) estimation/1.73 sq m using serum, plasma, or whole bOrdered By: Kathi Juarez on 12-23-2024 GFR/1.73 sq M.predicted among non-blacks MDRD (S/P/Bld) [Vol rate/Area] 52 mL/min/{1.73_m2} Low >60 [facility] Comment on above: mL/min/1.73m2 CKD-EP I Creatinine Equation (2020) Natriuretic peptide.B prohor pina N-Terminal [Mass/volume] in Serum or PlasmaOrdered By: Kathi Juarez on 12-23-2024 Natriuretic peptide.B prohormone N-Terminal [Mass/Vol] 22297 pg/mL High <1800 [facility] Comment on above: Heart Failure Unlike ly: < 300 pg/mLHeart Failure Likely< 50 Years: > 450 pg/mL50-75 Years: > 900 pg/mL>75 Years: > 1800 pg/mL Potassium measurement (mass/ volume)Ordered By: Kathi Juarez on 12-23-2024 Potassium (Unsp spec) [Mass/Vol] 4.1 mmol/L 3.3-5.1 [facility] Serum creatinine measurement (mass/volume)Ordered By: Kathi Juarez on 12-23-2024 Creatinine [Mass/Vol] 1.06 mg/dL 0.70-1.20 [facility] Serum glucose measurement (m ass/volume)Ordered By: Kathi Juarez on 12-23-2024 Glucose [Mass/Vol] 111 mg/dL High 70-99 [facility] Serum or plasma calcium adam urement (mass/volume)Ordered By: Kathi Juarez on 12-23-2024 Calcium [Mass/Vol] 9.8 mg/dL 7.6-11.0 [facility] Serum or plasma urea nitroge n measurement (mass/volume)Ordered By: Kathi Juarez on 12-23-2024 Urea nitrogen [Mass/Vol] 21 mg/dL High 4-19 [facility] Sodium levelOrdered By: Fuentes Juarez on 12-23-2024 Sodium [Moles/Vol] 135 mmol/L 133-145 [facility] Anion gap in Serum or Plasma Ordered By: Kathi Juarez on 12-16-2024 Anion gap [Moles/Vol] 11 mmol/L 5-15 [facility] BUN/creatinine ratioOrdered By: Kathi Juarez on 12-16-2024 Urea nitrogen/Creatinine [Mass ratio] 17.5 mg/mg 10-20 [facility] Bilirubin Test strip Ql (U)O rdered By: Kathi Juarez on 12-16-2024 Bilirubin Ql (U) Negative Negative [facility] Bilirubin, totalOrdered By: Kathi Juarez on 12-16-2024 Bilirubin [Mass/Vol] 0.96 mg/dL 0.00-1.30 [facility] Carbon dioxide, total [Moles /volume] in Central venous bloodOrdered By: Kathi Juarez on 12-16-2024 CO2 [Moles/Vol] 24.7 mmol/L 21.0-32.0 [facility] Chloride assayOrdered By: Emir Juarez on 12-16-2024 Chloride [Moles/Vol] 102 mmol/L 98-108 [facility] Erythrocyte distribution wid th ratioOrdered By: Kathi Juarez on 12-16-2024 Erythrocyte distribution width (RBC) [Ratio] 14.6 % 11.6-14.6 [facility] Erythrocyte distribution wid th standard deviationOrdered By: Kathi Juarez on 12-16-2024 Erythrocyte distribution width (RBC) [Ratio] 49.2 fl High 35.1-43.9 [facility] Glomerular filtration rate ( GFR) estimation/1.73 sq m using serum, plasma, or whole bOrdered By: Kathi Juarez on 12-16-2024 GFR/1.73 sq M.predicted among non-blacks MDRD (S/P/Bld) [Vol rate/Area] 64 mL/min/{1.73_m2} >60 [facility] Comment on above: mL/min/1.73m2 CKD-EP I Creatinine Equation (2020) Hematocrit Auto (Bld) [Volum e fraction]Ordered By: Kathi Juarez on 12-16-2024 Hematocrit (Bld) [Volume fraction] 40.1 % 37-47 [facility] Hemoglobin measurementOrdere d By: Kathi Juarez on 12-16-2024 Hemoglobin (Bld) [Mass/Vol] 12.8 g/dL 12.0-15.0 [facility] Ketones Test strip Ql (U)Ord ered By: Kathi Juarez on 12-16-2024 Ketones Ql (U) Negative Negative [facility] Laboratory - Chemistry and C hemistry - challengeOrdered By: Kathi Juarez on 12-16-2024 AST [Catalytic activity/Vol] 29 U/L <32 [facility] MCV (mean corpuscular volume ) determinationOrdered By: Kathi Juarez on 12-16-2024 MCV (RBC) [Entitic vol] 93.7 fL 81-99 [facility] Magnesium measurement (mass/ volume)Ordered By: Kathi Juarez on 12-16-2024 Magnesium (Unsp spec) [Mass/Vol] 2.2 mg/dL 1.5-2.2 [facility] Mean corpuscular hemoglobin (MCH) determinationOrdered By: Kathi Juarez on 12-16-2024 MCH (RBC) [Entitic mass] 29.9 pg 27.0-32.0 [facility] Mean corpuscular hemoglobin concentration (MCHC) determinationOrdered By: Kathi Juarez on 12-16-2024 MCHC (RBC) [Mass/Vol] 31.9 g/dL Low 32-36 [facility] Mean platelet volume determi nationOrdered By: Kathi Juarez on 12-16-2024 Platelet mean volume (Bld) [Entitic vol] 9.5 fL 6.2-12.0 [facility] Microscopic analysis of urin e for red blood cells (RBC)Ordered By: Kathi Juarez on 12-16-2024 Microscopic analysis of urine for red blood cells (RBC) 0-5 SEEN /hpf 0-5 [facility] Mucus LM Ql (Urine sed)Order ed By: Kathi Juarez on 12-16-2024 Mucus Ql (Urine sed) 0 SEEN /hpf [facility] Natriuretic peptide.B prohor pina N-Terminal [Mass/volume] in Serum or PlasmaOrdered By: Kathi Juarez on 12-16-2024 Natriuretic peptide.B prohormone N-Terminal [Mass/Vol] 50800 pg/mL High <1800 [facility] Comment on above: Heart Failure Unlike ly: < 300 pg/mLHeart Failure Likely< 50 Years: > 450 pg/mL50-75 Years: > 900 pg/mL>75 Years: > 1800 pg/mL Nitrite Test strip Ql (U)Ord ered By: Kathi Juarez on 12-16-2024 Nitrite Ql (U) Negative Negative [facility] Platelet countOrdered By: Emir Juarez on 12-16-2024 Platelets (Bld) [#/Vol] 258 10*3/uL 150-450 [facility] Potassium measurement (mass/ volume)Ordered By: Kathi Juarez on 12-16-2024 Potassium (Unsp spec) [Mass/Vol] 3.4 mmol/L 3.3-5.1 [facility] Protein Test strip Ql (U)Ord ered By: Kathi Juarez on 12-16-2024 Protein Ql (U) 30 mg/dl High Negative [facility] RBC Auto (Bld) [#/Vol]Ordere d By: Kathi Juarez on 12-16-2024 RBC (Bld) [#/Vol] 4.28 10*6/uL 4.2-5.4 [facility] Serum creatinine measurement (mass/volume)Ordered By: Kathi Juarez on 12-16-2024 Creatinine [Mass/Vol] 0.90 mg/dL 0.70-1.20 [facility] Serum globulin measurementOr dered By: Kathi Juarez on 12-16-2024 Globulin (S) [Mass/Vol] 3.1 g/dL 2.2-4.2 [facility] Serum glucose measurement (m ass/volume)Ordered By: Kathi Juarez on 12-16-2024 Glucose [Mass/Vol] 110 mg/dL High 70-99 [facility] Serum or plasma alanine jiang otransferase (ALT) measurementOrdered By: Kathi Juarez on 12-16-2024 ALT [Catalytic activity/Vol] 15 U/L <35 [facility] Serum or plasma albumin adam urement (mass/volume)Ordered By: Kathi Juarez on 12-16-2024 Albumin [Mass/Vol] 3.6 g/dL 3.4-4.8 [facility] Serum or plasma albumin/glob ulin mass ratioOrdered By: Kathi Juarez on 12-16-2024 Albumin/Globulin [Mass ratio] 1.2 {ratio} 0.9-2.4 [facility] Serum or plasma alkaline herminio sphatase measurementOrdered By: Kathi Juarez on 12-16-2024 ALP [Catalytic activity/Vol] 72 U/L 35-104 [facility] Serum or plasma calcium adam urement (mass/volume)Ordered By: Kathi Juarez on 12-16-2024 Calcium [Mass/Vol] 9.3 mg/dL 7.6-11.0 [facility] Serum or plasma urea nitroge n measurement (mass/volume)Ordered By: Kathi Juarez on 12-16-2024 Urea nitrogen [Mass/Vol] 16 mg/dL 4-19 [facility] Sodium levelOrdered By: Fuentes Juarez on 12-16-2024 Sodium [Moles/Vol] 138 mmol/L 133-145 [facility] Squamous epithelial cells de tection in urine sediment by light microscopyOrdered By: Kathi Juarez on 12-16-2024 Epithelial cells.squamous LM Ql (Urine sed) 0-5 SEEN /hpf 5-10 [facility] Total proteinOrdered By: Sarthak Juarez on 12-16-2024 Protein [Mass/Vol] 6.6 g/dL 5.9-8.4 [facility] Urine clarityOrdered By: Sarthak Juarez on 12-16-2024 Clarity (U) Cloudy Clear [facility] Urine color determinationOrd ered By: Kathi Juarez on 12-16-2024 Color (U) Yellow Yellow [facility] Urine cultureOrdered By: Sarthak Juarez on 12-16-2024 Bacteria identified Cx Nom (U) ESBL Escherichia coli Abnormal [facility] Urine glucose detectionOrder ed By: Kathi Juarez on 12-16-2024 Glucose Ql (U) Normal mg/dl Normal [facility] Urine leukocyte esterase det ection by dipstickOrdered By: Kathi Juarez on 12-16-2024 Leukocyte esterase Test strip Ql (U) 500 /ul High Negative [facility] Urine pHOrdered By: Kathi lyn on 12-16-2024 pH (U) 6.0 [pH] 5.0 - 8.0 [facility] Urine sediment bacteria coun t by microscopy (number/high power field)Ordered By: Kathi Juarez on 12-16-2024 Bacteria LM.HPF (Urine sed) [#/Area] 4 /[HPF] None Seen [facility] Urine specific gravity measu rementOrdered By: Kathi Juarez on 12-16-2024 Specific gravity (U) [Rel density] 1.020 1.002-1.030 [facility] Urine urobilinogen measureme ntOrdered By: Kathi Juarez on 12-16-2024 Urobilinogen Ql (U) Normal mg/dl Normal [facility] White blood cell (WBC) count Ordered By: Kathi Juarez on 12-16-2024 WBC (Bld) [#/Vol] 7.1 10*3/uL 4.4-11.0 [facility] White blood cell countOrdere d By: Kathi Juarez on 12-16-2024 White blood cell count >100 SEEN /hpf 0-5 [facility] Anion gap in Serum or Plasma Ordered By: Kathi Juarez on 12-04-2024 Anion gap [Moles/Vol] 10 mmol/L 5-15 [facility] BUN/creatinine ratioOrdered By: Kathi Juarez on 12-04-2024 Urea nitrogen/Creatinine [Mass ratio] 17.7 mg/mg 10-20 [facility] Bilirubin, totalOrdered By: Kathi Juarez on 12-04-2024 Bilirubin [Mass/Vol] 0.71 mg/dL 0.00-1.30 [place] [facility] Carbon dioxide, total [Moles /volume] in Central venous bloodOrdered By: Kathi Juarez on 12-04-2024 CO2 [Moles/Vol] 23.9 mmol/L 21.0-32.0 [facility] Chloride assayOrdered By: Emir Juarez on 12-04-2024 Chloride [Moles/Vol] 104 mmol/L 98-108 [facility] Erythrocyte distribution wid th ratioOrdered By: Kathi Juarez on 12-04-2024 Erythrocyte distribution width (RBC) [Ratio] 14.0 % 11.6-14.6 [facility] Erythrocyte distribution wid th standard deviationOrdered By: Kathi Juarez on 12-04-2024 Erythrocyte distribution width (RBC) [Ratio] 47.5 fl High 35.1-43.9 [facility] Glomerular filtration rate ( GFR) estimation/1.73 sq m using serum, plasma, or whole bOrdered By: Kathi Juarez on 12-04-2024 GFR/1.73 sq M.predicted among non-blacks MDRD (S/P/Bld) [Vol rate/Area] 53 mL/min/{1.73_m2} Low >60 [facility] Comment on above: mL/min/1.73m2 CKD-EP I Creatinine Equation (2020) Hematocrit Auto (Bld) [Volum e fraction]Ordered By: Kathi Juarez on 12-04-2024 Hematocrit (Bld) [Volume fraction] 38.0 % 37-47 [facility] Hemoglobin measurementOrdere d By: Kathi Juarez on 12-04-2024 Hemoglobin (Bld) [Mass/Vol] 12.5 g/dL 12.0-15.0 [facility] Laboratory - Chemistry and C hemistry - challengeOrdered By: Kathi Juarez on 12-04-2024 AST [Catalytic activity/Vol] 29 U/L <32 [facility] MCV (mean corpuscular volume ) determinationOrdered By: Kathi Juarez on 12-04-2024 MCV (RBC) [Entitic vol] 92.9 fL 81-99 [facility] Mean corpuscular hemoglobin (MCH) determinationOrdered By: Kathi Juarez on 12-04-2024 MCH (RBC) [Entitic mass] 30.6 pg 27.0-32.0 [facility] Mean corpuscular hemoglobin concentration (MCHC) determinationOrdered By: Kathi Juarez on 12-04-2024 MCHC (RBC) [Mass/Vol] 32.9 g/dL 32-36 [facility] Mean platelet volume determi nationOrdered By: Kathi Juarez on 12-04-2024 Platelet mean volume (Bld) [Entitic vol] 9.2 fL 6.2-12.0 [facility] Platelet countOrdered By: Emir Juarez on 12-04-2024 Platelets (Bld) [#/Vol] 266 10*3/uL 150-450 [facility] Potassium measurement (mass/ volume)Ordered By: Kathi Juarez on 12-04-2024 Potassium (Unsp spec) [Mass/Vol] 3.4 mmol/L 3.3-5.1 [facility] RBC Auto (Bld) [#/Vol]Ordere d By: Kathi Juarez on 12-04-2024 RBC (Bld) [#/Vol] 4.09 10*6/uL Low 4.2-5.4 [facility] Serum creatinine measurement (mass/volume)Ordered By: Kathi Juarez on 12-04-2024 Creatinine [Mass/Vol] 1.05 mg/dL 0.70-1.20 [facility] Serum globulin measurementOr dered By: Kathi Juarez on 12-04-2024 Globulin (S) [Mass/Vol] 3.0 g/dL 2.2-4.2 [facility] Serum glucose measurement (m ass/volume)Ordered By: Kathi Juarez on 12-04-2024 Glucose [Mass/Vol] 112 mg/dL High 70-99 [facility] Serum or plasma alanine jiang otransferase (ALT) measurementOrdered By: Kathi Juarez on 12-04-2024 ALT [Catalytic activity/Vol] 20 U/L <35 [facility] Serum or plasma albumin adam urement (mass/volume)Ordered By: Kathi Juarez on 12-04-2024 Albumin [Mass/Vol] 3.6 g/dL 3.4-4.8 [facility] Serum or plasma albumin/glob ulin mass ratioOrdered By: Kathi Juarez on 12-04-2024 Albumin/Globulin [Mass ratio] 1.2 {ratio} 0.9-2.4 [facility] Serum or plasma alkaline herminio sphatase measurementOrdered By: Kathi Juarez on 12-04-2024 ALP [Catalytic activity/Vol] 74 U/L 35-104 [facility] Serum or plasma calcium adam urement (mass/volume)Ordered By: Kathi Juarez on 12-04-2024 Calcium [Mass/Vol] 9.3 mg/dL 7.6-11.0 [facility] Serum or plasma urea nitroge n measurement (mass/volume)Ordered By: Kathi Juarez on 12-04-2024 Urea nitrogen [Mass/Vol] 19 mg/dL 4-19 [facility] Sodium levelOrdered By: Fuentes Juarez on 12-04-2024 Sodium [Moles/Vol] 138 mmol/L 133-145 [facility] Total proteinOrdered By: Sarthak Juarez on 12-04-2024 Protein [Mass/Vol] 6.6 g/dL 5.9-8.4 [facility] White blood cell (WBC) count Ordered By: Kathi Juarez on 12-04-2024 WBC (Bld) [#/Vol] 6.3 10*3/uL 4.4-11.0 [facility] Anion gap in Serum or Plasma Ordered By: Kathi Juarez on 11-26-2024 Anion gap [Moles/Vol] 11 mmol/L 5-15 [facility] BUN/creatinine ratioOrdered By: Kathi Jaurez on 11-26-2024 Urea nitrogen/Creatinine [Mass ratio] 17.8 mg/mg 10-20 [facility] Bilirubin directOrdered By: Kathi Juarez on 11-26-2024 Bilirubin.direct [Mass/Vol] 0.28 mg/dL 0.00-0.30 [facility] Bilirubin, totalOrdered By: Kathi Juarez on 11-26-2024 Bilirubin [Mass/Vol] 0.62 mg/dL 0.00-1.30 [facility] Carbon dioxide, total [Moles /volume] in Central venous bloodOrdered By: Kathi Juarez on 11-26-2024 CO2 [Moles/Vol] 22.3 mmol/L 21.0-32.0 [facility] Chloride assayOrdered By: Emir Juarez on 11-26-2024 Chloride [Moles/Vol] 106 mmol/L 98-108 [facility] Glomerular filtration rate ( GFR) estimation/1.73 sq m using serum, plasma, or whole bOrdered By: Kathi Juarez on 11-26-2024 GFR/1.73 sq M.predicted among non-blacks MDRD (S/P/Bld) [Vol rate/Area] 59 mL/min/{1.73_m2} Low >60 [facility] Comment on above: mL/min/1.73m2 CKD-EP I Creatinine Equation (2020) Laboratory - Chemistry and C hemistry - challengeOrdered By: Kathi Juarez on 11-26-2024 AST [Catalytic activity/Vol] 35 U/L High <32 [facility] Magnesium measurement (mass/ volume)Ordered By: Kathi Juarez on 11-26-2024 Magnesium (Unsp spec) [Mass/Vol] 2.2 mg/dL 1.5-2.2 [facility] Potassium measurement (mass/ volume)Ordered By: Kathi Juarez on 11-26-2024 Potassium (Unsp spec) [Mass/Vol] 3.5 mmol/L 3.3-5.1 [facility] Serum creatinine measurement (mass/volume)Ordered By: Kathi Juarez on 11-26-2024 Creatinine [Mass/Vol] 0.96 mg/dL 0.70-1.20 [facility] Serum globulin measurementOr dered By: Kathi Juarez on 11-26-2024 Globulin (S) [Mass/Vol] 2.8 g/dL 2.2-4.2 [facility] Serum glucose measurement (m ass/volume)Ordered By: Kathi Juarez on 11-26-2024 Glucose [Mass/Vol] 97 mg/dL 70-99 [facility] Serum or plasma alanine jiang otransferase (ALT) measurementOrdered By: Kathi Juarez on 11-26-2024 ALT [Catalytic activity/Vol] 30 U/L <35 [facility] Serum or plasma albumin adam urement (mass/volume)Ordered By: Kathi Juarez on 11-26-2024 Albumin [Mass/Vol] 3.2 g/dL Low 3.4-4.8 [facility] Serum or plasma alkaline herminio sphatase measurementOrdered By: Kathi Juarez on 11-26-2024 ALP [Catalytic activity/Vol] 72 U/L 35-104 [facility] Serum or plasma calcium adam urement (mass/volume)Ordered By: Kathi Juarez on 11-26-2024 Calcium [Mass/Vol] 9.2 mg/dL 7.6-11.0 [facility] Serum or plasma urea nitroge n measurement (mass/volume)Ordered By: Kathi Juarez on 11-26-2024 Urea nitrogen [Mass/Vol] 17 mg/dL 4-19 [facility] Sodium levelOrdered By: Fuentes Juarez on 11-26-2024 Sodium [Moles/Vol] 139 mmol/L 133-145 [facility] TSH DL <= 0.005 mIU/L QnOrde red By: Kathi Juarez on 11-26-2024 TSH Qn 1.450 uIU/mL 0.300-4.200 [facility] Total proteinOrdered By: Sarthak Juarez on 11-26-2024 Protein [Mass/Vol] 6.0 g/dL 5.9-8.4 [facility] ECG 12 lead - CLINIC PERFORM EDon 11-19-2024 Atrial fibrillation -occasional ectopic ventricular beat -Consider old anteroseptal infarct. -Negative T-waves -Lateral ischemia. ABNORMAL [facility] Progress Noteon 11-19-2024 Progress Note Normal [facility] Anion gap in Serum or Plasma Ordered By: Kathi Juarez on 11-04-2024 Anion gap [Moles/Vol] 9 mmol/L 5-15 [facility] BUN/creatinine ratioOrdered By: Kathi Juarez on 11-04-2024 Urea nitrogen/Creatinine [Mass ratio] 21.7 mg/mg High 10-20 [facility] Bilirubin, totalOrdered By: Kathi Juarez on 11-04-2024 Bilirubin [Mass/Vol] 0.69 mg/dL 0.00-1.30 [facility] Carbon dioxide, total [Moles /volume] in Central venous bloodOrdered By: Kathi Juarez on 11-04-2024 CO2 [Moles/Vol] 23.3 mmol/L 21.0-32.0 [facility] Chloride assayOrdered By: Emir Juarez on 11-04-2024 Chloride [Moles/Vol] 102 mmol/L 98-108 [facility] Erythrocyte distribution wid th ratioOrdered By: Kathi Juarez on 11-04-2024 Erythrocyte distribution width (RBC) [Ratio] 13.2 % 11.6-14.6 [facility] Erythrocyte distribution wid th standard deviationOrdered By: Kathi Juarez on 11-04-2024 Erythrocyte distribution width (RBC) [Ratio] 47.2 fl High 35.1-43.9 [facility] Glomerular filtration rate ( GFR) estimation/1.73 sq m using serum, plasma, or whole bOrdered By: Kathi Juarez on 11-04-2024 GFR/1.73 sq M.predicted among non-blacks MDRD (S/P/Bld) [Vol rate/Area] 49 mL/min/{1.73_m2} Low >60 [facility] Comment on above: mL/min/1.73m2 CKD-EP I Creatinine Equation (2020) Hematocrit Auto (Bld) [Volum e fraction]Ordered By: Kathi Juarez on 11-04-2024 Hematocrit (Bld) [Volume fraction] 42.3 % 37-47 [facility] Hemoglobin measurementOrdere d By: Kathi Juarez on 11-04-2024 Hemoglobin (Bld) [Mass/Vol] 13.8 g/dL 12.0-15.0 [facility] Laboratory - Chemistry and C hemistry - challengeOrdered By: Kathi Juarez on 11-04-2024 AST [Catalytic activity/Vol] 27 U/L <32 [facility] MCV (mean corpuscular volume ) determinationOrdered By: Kathi Juarez on 11-04-2024 MCV (RBC) [Entitic vol] 98.4 fL 81-99 [facility] Mean corpuscular hemoglobin (MCH) determinationOrdered By: Kathi Juarez on 11-04-2024 MCH (RBC) [Entitic mass] 32.1 pg High 27.0-32.0 [facility] Mean corpuscular hemoglobin concentration (MCHC) determinationOrdered By: Kathi Juarez on 11-04-2024 MCHC (RBC) [Mass/Vol] 32.6 g/dL 32-36 [facility] Mean platelet volume determi nationOrdered By: Kathi Juarez on 11-04-2024 Platelet mean volume (Bld) [Entitic vol] 8.7 fL 6.2-12.0 [facility] Platelet countOrdered By: Emir Juarez on 11-04-2024 Platelets (Bld) [#/Vol] 359 10*3/uL 150-450 [facility] Potassium measurement (mass/ volume)Ordered By: Kathi Juarez on 11-04-2024 Potassium (Unsp spec) [Mass/Vol] 4.7 mmol/L 3.3-5.1 [facility] RBC Auto (Bld) [#/Vol]Ordere d By: Kathi Juarez on 11-04-2024 RBC (Bld) [#/Vol] 4.30 10*6/uL 4.2-5.4 [facility] Serum creatinine measurement (mass/volume)Ordered By: Kathi Juarez on 11-04-2024 Creatinine [Mass/Vol] 1.12 mg/dL 0.70-1.20 [facility] Serum globulin measurementOr dered By: Kathi Juarez on 11-04-2024 Globulin (S) [Mass/Vol] 3.4 g/dL 2.2-4.2 [facility] Serum glucose measurement (m ass/volume)Ordered By: Kathi Juarez on 11-04-2024 Glucose [Mass/Vol] 117 mg/dL High 70-99 [facility] Serum or plasma alanine jiang otransferase (ALT) measurementOrdered By: Kathi Juarez on 11-04-2024 ALT [Catalytic activity/Vol] 20 U/L <35 [facility] Serum or plasma albumin adam urement (mass/volume)Ordered By: Kathi Juarez on 11-04-2024 Albumin [Mass/Vol] 3.9 g/dL 3.4-4.8 [facility] Serum or plasma albumin/glob ulin mass ratioOrdered By: Kathi Juarez on 11-04-2024 Albumin/Globulin [Mass ratio] 1.2 {ratio} 0.9-2.4 [facility] Serum or plasma alkaline herminio sphatase measurementOrdered By: Kathi Juarez on 11-04-2024 ALP [Catalytic activity/Vol] 82 U/L 35-104 [facility] Serum or plasma calcium adam urement (mass/volume)Ordered By: Kathi Juarez on 11-04-2024 Calcium [Mass/Vol] 9.9 mg/dL 7.6-11.0 [facility] Serum or plasma urea nitroge n measurement (mass/volume)Ordered By: Kathi Juarez on 11-04-2024 Urea nitrogen [Mass/Vol] 24 mg/dL High 4-19 [facility] Sodium levelOrdered By: Fuentes Juarez on 11-04-2024 Sodium [Moles/Vol] 134 mmol/L 133-145 [facility] Total proteinOrdered By: Sarthak Juarez on 11-04-2024 Protein [Mass/Vol] 7.3 g/dL 5.9-8.4 [facility] White blood cell (WBC) count Ordered By: Kathi Juarez on 11-04-2024 WBC (Bld) [#/Vol] 8.0 10*3/uL 4.4-11.0 [facility] 30on 11-01-2024 30 Normal [facility] 30 Normal [facility] [id number] 11-01-2024 [id number] Normal [facility] [id number] Normal [facility] [id number] Discharge med list transmitted to return back to [facility] via [employer] per TCC request. [facility] [phone] [facility] [id number] Sent updated notes to return back to [facility] via [employer] per TCC request. Await review and response regarding ability to accept. TCC notified. [facility] CBC W Auto Differential pane l (Bld)on 11-01-2024 Basophils (Bld) [#/Vol] 0.1 10*3/uL 0.0 - 0.2 10*3/uL [facility] Basophils/100 WBC (Bld) 0.8 % 0.0 - 2.0 % [facility] Eosinophils (Bld) [#/Vol] 0.4 10*3/uL 0. 0 - 0.5 10*3/uL [facility] Eosinophils/100 WBC (Bld) 5.1 % 0.0 - 6.0 % [facility] Erythrocyte distribution width (RBC) [Ratio] 13.2 % 11.5 - 15.0 % [facility] Hematocrit (Bld) [Volume fraction] 42.3 % 35.0 - 47.0 % [facility] Hemoglobin (Bld) [Mass/Vol] 13.8 g/dL 11.7 - 16.0 g/dL [facility] Immature granulocytes (Bld) [#/Vol] 0 10*3/uL NINF - 0.1 10*3/uL [facility] Immature granulocytes/100 WBC (Bld) 0.4 % 0.0 - 2.0 % [facility] Interpretation and review of laboratory results Abnormal [facility] th Lymphocytes (Bld) [#/Vol] 2.4 10*3/uL 1. 0 - 4.3 10*3/uL [facility] Lymphocytes/100 WBC (Bld) 31.1 % 15 .0 - 45.0 % [facility] MCH (RBC) [Entitic mass] 31.3 pg 26. 0 - 34.0 pg [facility] MCHC (RBC) [Mass/Vol] 32.6 % 30.5 - 36.0 % [facility] MCV (RBC) [Entitic vol] 95.9 fL 77.0 - 99.0 fL [facility] Monocytes (Bld) [#/Vol] 1 10*3/uL High 0.0 - 0.9 10*3/uL [facility] Monocytes/100 WBC (Bld) 13.1 % High 5.0 - 13.0 % [facility] Neutrophils (Bld) [#/Vol] 3.8 10*3/uL 1. 8 - 7.5 10*3/uL [facility] Neutrophils/100 WBC (Bld) 49.5 % 38 .0 - 82.0 % [facility] Nucleated RBC/100 WBC (Bld) [Ratio] 0 % [facility] Platelet mean volume (Bld) [Entitic vol] 8.4 fL Low 9.0 - 12.7 fL [facility] Platelets (Bld) [#/Vol] 313 10*3/uL 140 - 440 10*3/uL [facility] RBC (Bld) [#/Vol] 4.41 10*6/uL 3.80 - 5.2 0 10*6/uL [facility] WBC (Bld) [#/Vol] 7.8 10*3/uL 3.6 - 10.7 10*3/uL [facility] CBC WITH AUTO DIFFERENTIALon 11-01-2024 Basophils (Bld) [#/Vol] 0.1 10*3/uL Normal 0.0-0.2 [facility] Comment on above: Performed By: #### L [id number] ####Shank Burnisher: ROSETTE ZHAO ([id number])[facility] ([facility])[address] [place] [address] Basophils/100 WBC (Bld) 0.8 % Normal 0.0-2.0 [facility] Comment on above: Performed By: #### L [id number] ####Shank Burnisher: ROSETTE ZHAO ([phone])[facility] ([facility])[address] Eosinophils (Bld) [#/Vol] 0.4 10*3/uL Normal 0.0-0.5 [facility] Comment on above: Performed By: #### L [id number] ####Shank Burnisher: ROSETTE ZHAO ([phone])[facility] [place] ([facility])[address] Eosinophils/100 WBC (Bld) 5.1 % Normal 0.0-6.0 [facility] Comment on above: Performed By: #### L [id number] ####Shank Burnisher: ROSETTE ZHAO ([phone])[facility] [place] [address] Erythrocyte distribution width (RBC) [Ratio] 13.2 % Normal 11.5-15.0 [facility] Comment on above: Performed By: #### L [id number] ####Shank Burnisher: ROSETTE ZHAO ([id number])[facility] [place] [address] Hematocrit (Bld) [Volume fraction] 42.3 % Normal 35.0-47.0 [facility] Comment on above: Performed By: #### L [id number] ####Shank Burnisher: ROSETTE ZHAO ([phone])[facility] ([facility])[address] [place] [address] Hemoglobin (Bld) [Mass/Vol] 13.8 g/dL Normal 11.7-16.0 [facility] Comment on above: Performed By: #### L [id number] ####Shank Burnisher: ROSETTE ZHAO ([phone])[facility] ([facility])[address] IMMATURE GRANS % 0.4 % Normal 0.0-2.0 [facility] Comment on above: Performed By: #### L [id number] ####Shank Burnisher: ROSETTE MONTALVOVIK ([phone])[facility] ([facility])[address] IMMATURE GRANS ABSOLUTE 0.0 10*3/uL Normal <0.1 [facility] Comment on above: Performed By: #### L [id number] ####Shank Burnisher: ROSETTE ZHAO ([id number])[facility] ([facility])[address] Lymphocytes (Bld) [#/Vol] 2.4 10*3/uL Normal 1.0-4.3 [facility] Comment on above: Performed By: #### L [id number] ####Shank Burnisher: ROSETTE MONTALVOVIK ([phone])[facility] ([facility])[address] [place] [address] Lymphocytes/100 WBC (Bld) 31.1 % Normal 15.0-45.0 [facility] Comment on above: Performed By: #### L [id number] ####Shank Burnisher: ROSETTE ZHAO ([phone])[facility] [place] [address] MCH (RBC) [Entitic mass] 31.3 pg Normal 26.0-34.0 [facility] Comment on above: Performed By: #### L [id number] ####Shank Burnisher: ROSETTE MONTALVOVIK ([phone])[facility])[address] [place] [address] MCHC 32.6 % Normal 30.5-36.0 [facility] Comment on above: Performed By: #### L [id number] ####Shank Burnisher: ROSETTE ZHAO ([id number])[facility] ([facility])[address] [place] [address] MCV (RBC) [Entitic vol] 95.9 fL Normal 77.0-99.0 [facility] Comment on above: Performed By: #### L [id number] ####Shank Burnisher: ROSETTE ZHAO ([id number])[facility] ([facility]HLAB)[address] Monocytes (Bld) [#/Vol] 1.0 10*3/uL High 0.0-0.9 [facility] Comment on above: Performed By: #### L [id number] ####Shank Burnisher: ROSETTE ZHAO ([phone])[facility] ([facility])[address] Monocytes/100 WBC (Bld) 13.1 % High 5.0-13.0 [facility] Comment on above: Performed By: #### L [id number] ####Shank Burnisher: ROSETTE ZHAO ([phone])[facility] ([facility])[address] NEUTROPHILS ABSOLUTE 3.8 10*3/uL Normal 1.8-7.5 [facility] Comment on above: Performed By: #### L [id number] ####Shank Burnisher: ROSETTE ZHAO ([id number])[facility] ([facility])[address] Neutrophils/100 WBC (Bld) 49.5 % Normal 38.0-82.0 [facility] Comment on above: Performed By: #### L [id number] ####Shank Burnisher: ROSETTE ZHAO ([id number])[facility] ([facility])[address] NRBC 0.0 /100 WBCs Normal 0.0-2.0 [facility] Comment on above: Performed By: #### L [id number] ####Shank Burnisher: ROSETTE ZHAO ([id number])[facility] ([facility])[address] Platelet mean volume (Bld) [Entitic vol] 8.4 fL Low 9.0-12.7 [facility] Comment on above: Performed By: #### L [id number] ####Shank Burnisher: ROSETTE ZHAO ([id number])[facility] ([facility])[address] Platelets (Bld) [#/Vol] 313 10*3/uL Normal 140-440 [facility] Comment on above: Performed By: #### L [id number] ####Shank Burnisher: ROSETTE ZHAO ([phone])[facility] ([facility])[address] RBC (Bld) [#/Vol] 4.41 10*6/uL Normal 3.80-5.20 [facility] Comment on above: Performed By: #### L [id number] ####Shank Burnisher: ROSETTE ZHAO ([id number])[facility] ([facility])[address] WBC (Bld) [#/Vol] 7.8 10*3/uL Normal 3.6-10.7 [facility] Comment on above: Performed By: #### L [id number] ####Shank Burnisher: ROSETTE ZHAO ([id number])[facility] ([facility])[address] COMPREHENSIVE METABOLIC PANE Hua 11-01-2024 Albumin [Mass/Vol] 3.1 g/dL Low 3.4-4.8 [facility] Comment on above: Performed By: #### L [id number], LAB17 ####Shank Burnisher: ROSETTE ZHAO ([id number])[facility] ([facility])[address] ALP [Catalytic activity/Vol] 67 U/L Normal 40-150 [facility] Comment on above: Performed By: #### L AB103, LAB17 ####Shank Burnisher: ROSETTE ZHAO ([phone])[facility] ([facility])[address] [place] [address] [place] ALT [Catalytic activity/Vol] 26 U/L Normal <30 [facility] Comment on above: Performed By: #### L [id number], LAB17 ####Shank Burnisher: ROSETTE ZHAO ([id number])[facility] ([facility])[address] Anion gap [Moles/Vol] 9 mmol/L Normal 3-13 [facility] Comment on above: Performed By: #### L [id number], LAB17 ####Shank Burnisher: ROSETTE ZHAO ([id number])[facility] ([facility])[address] AST [Catalytic activity/Vol] 29 U/L Normal <34 [facility] Comment on above: Performed By: #### L [id number], LAB17 ####Shank Burnisher: ROSETTE ZHAO ([id number])[facility] [place] ([facility])[address] [place] [address] [place] Bilirubin [Mass/Vol] 0.5 mg/dL Normal <1.2 [facility] Comment on above: Performed By: #### L [id number], LAB17 ####Shank Burnisher: ROSETTE ZHAO ([id number])[facility] ([facility])[address] Calcium [Mass/Vol] 9.1 mg/dL Normal 8.8-10.0 [facility] Comment on above: Performed By: #### L [id number], LAB17 ####Shank Burnisher: ROSETTE ZHAO ([id number])[facility] ([facility])[address] [place] [address] [place] Chloride [Moles/Vol] 102 mmol/L Normal 98-107 [facility] Comment on above: Performed By: #### L [id number], LAB17 ####Shank Burnisher: ROSETTE ZHAO ([id number])[facility] ([facility])[address] [place] [address] [place] CO2 [Moles/Vol] 23 mmol/L Normal 23-31 [facility] Comment on above: Performed By: #### L AB103, LAB17 ####Shank Burnisher: ROSETTE ZHAO ([id number])[facility] ([facility])[address] Creatinine [Mass/Vol] 1.01 mg/dL Normal 0.57-1.11 [facility] Comment on above: Performed By: #### L AB103, LAB17 ####Shank Burnisher: ROSETTE ZHAO ([phone])[facility] ([facility])[address] GLOMERULAR FILTRATION RATE ML/MIN/1.73 SQ M.PREDICTED 55.7 mL/min/1.73m*2 Low >60.0 [facility] Comment on above: Result Comment: Calc ulation based on the Chronic Kidney Disease Epidemiology Collaboration (CKD-EPI) equation refit without adjustment for race Performed By: #### L [place], LAB17 ####Shank Burnisher: ROSETTE ZHAO ([id number])[facility] (SBHLAB)[address] Glucose [Mass/Vol] 120 mg/dL High 82-115 [facility] Comment on above: Performed By: #### L AB103, LAB17 ####Shank Burnisher: ROSETTE ZHAO ([id number])[facility] Potassium [Moles/Vol] 3.5 mmol/L Normal 3.5-5.1 [facility] Comment on above: Result Comment: [facility] potassium values may be up to 0.5 mmol/L lower than serum values. Performed By: #### L AB103, LAB17 ####Shank Burnisher: ROSETTE ZHAO ([phone])[facility] (HLAB)[address] Protein [Mass/Vol] 6.4 g/dL Normal 6.4-8.3 [facility] Comment on above: Performed By: #### L AB103, LAB17 ####Shank Burnisher: ROSETTE PABLOCER ([id number])[facility] (SBHLAB)[address] Sodium [Moles/Vol] 134 mmol/L Low 136-145 [facility] Comment on above: Performed By: #### L AB103, LAB17 ####Shank Burnisher: ROSETTELITZY ZHAO ([id number])[facility] (SBHLAB)[address] Urea nitrogen [Mass/Vol] 26 mg/dL High 9-23 [facility] Comment on above: Performed By: #### L AB103, LAB17 ####Shank Burnisher: ROSETTELITZY ZHAO ([id number])[facility] (SBHLAB)[address] Comprehensive metabolic 1998 panelon 11-01-2024 Albumin [Mass/Vol] 3.1 g/dL Low 3.4 - 4.8 g/dL [facility] ALP [Catalytic activity/Vol] 67 U/L 40 - 150 U/L [facility] ALT [Catalytic activity/Vol] 26 U/L [facility] Anion gap [Moles/Vol] 9 mmol/L 3 - 13 mmol/L [facility] AST [Catalytic activity/Vol] 29 U/L [facility] U/L [facility] Bilirubin [Mass/Vol] 0.5 mg/dL [facility] 1.[facility] mg/dL [facility] Calcium [Mass/Vol] 9.1 mg/dL 8.8 - 10. 0 mg/dL [facility] Chloride [Moles/Vol] 102 mmol/L 98 - 10 7 mmol/L [facility] CO2 [Moles/Vol] 23 mmol/L 23 - 31 mmol/L [facility] Creatinine [Mass/Vol] 1.01 mg/dL 0.57 - 1.11 mg/dL [facility] GFR/1.73 sq M.predicted (S/P/Bld) [Vol rate/Area] 55.7 mL/min Low - PINF [facility] Comment on above: Calculation based on the Chronic Kidney Disease Epidemiology Collaboration (CKD-EPI) equation refit without adjustment for race Glucose [Mass/Vol] 120 mg/dL High 82 - 115 mg/dL [facility] Interpretation and review of laboratory results Abnormal [facility] Potassium [Moles/Vol] 3.5 mmol/L 3.5 - 5.1 mmol/L [facility] Comment on above: Plasma potassium morro ues may be up to 0.5 mmol/L lower than serum values. Protein [Mass/Vol] 6.4 g/dL 6.4 - 8.3 g/dL [facility] Sodium [Moles/Vol] 134 mmol/L Low 136 - 145 mmol/L [facility] Urea nitrogen [Mass/Vol] 26 mg/dL High 9 - 23 mg/d L [facility] Laboratory - Chemistry and C hemistry - challengeon 11-01-2024 Magnesium [Mass/Vol] 1.9 mg/dL 1.6 - 2 .6 mg/dL [facility] MAGNESIUMon 11-01-2024 Magnesium [Mass/Vol] 1.9 mg/dL Normal 1.6-2.6 [facility] Comment on above: Result Comment: HUSSAIN Bhatt COMMENTS:Higher values can be expected in females during menses. Performed By: #### L AB103, LAB17 ####Shank Burnisher: ROSETTE ZHAO ([id number])[facility] ([facility])[address] [place] [address] Magnesium [Mass/Vol]on 11-01 Interpretation and review of laboratory results Normal [facility] Higher values can be expected in females during menses. [facility] Nursing Noteon 11-01-2024 Nursing Note Report called to [facility] Kilpatrick RN. Normal [facility] Nursing Note Attempt to call repost to [facility] for nut picker time at 1900. The nurse was not available that this time. Will attempt again Call to family. Voicemail left for son Parris to update him as well. Normal [facility] Progress Noteon 11-01-2024 Progress Note Normal [facility] Progress Note Normal [facility] CBC W Auto Differential pane l (Bld)on 10-31-2024 Basophils (Bld) [#/Vol] 0.1 10*3/uL 0.0 - 0.2 10*3/uL [facility] Basophils/100 WBC (Bld) 0.8 % 0.0 - 2.0 % [facility] Eosinophils (Bld) [#/Vol] 0.3 10*3/uL 0. 0 - 0.5 10*3/uL [facility] Eosinophils/100 WBC (Bld) 3.8 % 0.0 - 6.0 % [facility] Erythrocyte distribution width (RBC) [Ratio] 13.2 % 11.5 - 15.0 % [facility] Hematocrit (Bld) [Volume fraction] 44.3 % 35.0 - 47.0 % [facility] Hemoglobin (Bld) [Mass/Vol] 14.5 g/dL 11.7 - 16.0 g/dL [facility] Immature granulocytes (Bld) [#/Vol] 0 10*3/uL NINF - 0.1 10*3/uL [facility] Immature granulocytes/100 WBC (Bld) 0.2 % 0.0 - 2.0 % [facility] Interpretation and review of laboratory results Abnormal [facility] th Lymphocytes (Bld) [#/Vol] 3 10*3/uL 1. 0 - 4.3 10*3/uL [facility] Lymphocytes/100 WBC (Bld) 33.3 % 15 .0 - 45.0 % [facility] MCH (RBC) [Entitic mass] 31.8 pg 26. 0 - 34.0 pg [facility] MCHC (RBC) [Mass/Vol] 32.7 % 30.5 - 36.0 % [facility] MCV (RBC) [Entitic vol] 97.1 fL 77.0 - 99.0 fL [facility] Monocytes (Bld) [#/Vol] 1 10*3/uL High 0.0 - 0.9 10*3/uL [facility] Monocytes/100 WBC (Bld) 11.5 % 5.0 - 13.0 % [facility] Neutrophils (Bld) [#/Vol] 4.5 10*3/uL 1. 8 - 7.5 10*3/uL [facility] Neutrophils/100 WBC (Bld) 50.4 % 38 .0 - 82.0 % [facility] Nucleated RBC/100 WBC (Bld) [Ratio] 0 % [facility] Platelet mean volume (Bld) [Entitic vol] 8.7 fL Low 9.0 - 12.7 fL [facility] Platelets (Bld) [#/Vol] 319 10*3/uL 140 - 440 10*3/uL [facility] RBC (Bld) [#/Vol] 4.56 10*6/uL 3.80 - 5.2 0 10*6/uL [facility] WBC (Bld) [#/Vol] 9 10*3/uL 3.6 - 10.7 10*3/uL [facility] CBC WITH AUTO DIFFERENTIALon 10-31-2024 Basophils (Bld) [#/Vol] 0.1 10*3/uL Normal 0.0-0.2 [facility] Comment on above: Performed By: #### L [id number] ####Shank Burnisher: ROSETTE ZHAO ([id number])[facility] (SBHLAB)[address] [place] [address] Basophils/100 WBC (Bld) 0.8 % Normal 0.0-2.0 [facility] Comment on above: Performed By: #### L [id number] ####Shank Burnisher: ROSETTE ZHAO ([id number])[facility] (SBHLAB)[address] Eosinophils (Bld) [#/Vol] 0.3 10*3/uL Normal 0.0-0.5 [facility] Comment on above: Performed By: #### L [id number] ####Shank Burnisher: ROSETTE ZHAO ([id number])[facility] (SBHLAB)[address] Eosinophils/100 WBC (Bld) 3.8 % Normal 0.0-6.0 [facility] Comment on above: Performed By: #### L [id number] ####Shank Burnisher: ROSETTE ZHAO ([id number])[facility] (SBHLAB)[address] [place] [address] Erythrocyte distribution width (RBC) [Ratio] 13.2 % Normal 11.5-15.0 [facility] Comment on above: Performed By: #### L [id number] ####Shank Burnisher: ROSETTE ZHAO ([id number])[facility] (SBHLAB)[address] [place] [address] Hematocrit (Bld) [Volume fraction] 44.3 % Normal 35.0-47.0 [facility] Comment on above: Performed By: #### L [id number] ####Shank Burnisher: ROSETTE MONTALVOVIK ([id number])[facility] Hemoglobin (Bld) [Mass/Vol] 14.5 g/dL Normal 11.7-16.0 [facility] Comment on above: Performed By: #### L [id number] ####Shank Burnisher: ROSETTE ZHAO ([phone])[facility] ([facility])[address] [place] [address] IMMATURE GRANS % 0.2 % Normal 0.0-2.0 [facility] Comment on above: Performed By: #### L [id number] ####Shank Burnisher: ROSETTE MONTALVOVIK ([id number])[facility] [place] [address] IMMATURE GRANS ABSOLUTE 0.0 10*3/uL Normal <0.1 [facility] Comment on above: Performed By: #### L [id number] ####Shank Burnisher: ROSETTE ZHAO ([id number])[facility] [place] [address] Lymphocytes (Bld) [#/Vol] 3.0 10*3/uL Normal 1.0-4.3 [facility] Comment on above: Performed By: #### L [id number] ####Shank Burnisher: ROSETTE ZHAO ([id number])[facility] Lymphocytes/100 WBC (Bld) 33.3 % Normal 15.0-45.0 [facility] Comment on above: Performed By: #### L [id number] ####Shank Burnisher: ROSETTE ZHAO ([id number])[facility] (SBHLAB)[address] MCH (RBC) [Entitic mass] 31.8 pg Normal 26.0-34.0 [facility] Comment on above: Performed By: #### L [id number] ####Shank Burnisher: ROSETTE MONTALVOVIK ([id number])[facility] (SBHLAB)[address] MCHC 32.7 % Normal 30.5-36.0 [facility] Comment on above: Performed By: #### L [id number] ####Shank Burnisher: ROSETTE ZHAO ([id number])[facility] (SBHLAB)[address] MCV (RBC) [Entitic vol] 97.1 fL Normal 77.0-99.0 [facility] Comment on above: Performed By: #### L [id number] ####Shank Burnisher: ROSETTE ZHAO ([id number])[facility] (SBHLAB)[address] Monocytes (Bld) [#/Vol] 1.0 10*3/uL High 0.0-0.9 [facility] Comment on above: Performed By: #### L [id number] ####Shank Burnisher: ROSETTE ZHAO ([id number])[facility] (SBHLAB)[address] [place] [address] [place] Monocytes/100 WBC (Bld) 11.5 % Normal 5.0-13.0 [facility] Comment on above: Performed By: #### L [id number] ####Shank Burnisher: ROSETTE ZHAO ([id number])[facility] (SBHLAB)[address] NEUTROPHILS ABSOLUTE 4.5 10*3/uL Normal 1.8-7.5 [facility] Comment on above: Performed By: #### L [id number] ####Shank Burnisher: ROSETTE ZHAO ([id number])[facility] (SBHLAB)[address] Neutrophils/100 WBC (Bld) 50.4 % Normal 38.0-82.0 [facility] Comment on above: Performed By: #### L [id number] ####Shank Burnisher: ROSETTE ZHAO ([id number])[facility] [place] (SBHLAB)[address] NRBC 0.0 /100 WBCs Normal 0.0-2.0 [facility] Comment on above: Performed By: #### L [id number] ####Shank Burnisher: ROSETTE ZHAO ([id number])[facility] [place] (SBHLAB)[address] Platelet mean volume (Bld) [Entitic vol] 8.7 fL Low 9.0-12.7 [facility] Comment on above: Performed By: #### L [id number] ####Shank Burnisher: ROSETTE ZHAO ([id number])[facility] [place] (SBHLAB)[address] Platelets (Bld) [#/Vol] 319 10*3/uL Normal 140-440 [facility] Comment on above: Performed By: #### L [id number] ####Shank Burnisher: ROSETTE ZHAO ([id number])[facility] [place] (SBHLAB)[address] [place] [address] [place] RBC (Bld) [#/Vol] 4.56 10*6/uL Normal 3.80-5.20 [facility] Comment on above: Performed By: #### L [id number] ####Shank Burnisher: ROSETTE ZHAO ([id number])[facility] [place] (SBHLAB)[address] WBC (Bld) [#/Vol] 9.0 10*3/uL Normal 3.6-10.7 [facility] Comment on above: Performed By: #### L [id number] ####Shank Burnisher: ROSETTE ZHAO ([id number])[facility] (SBHLAB)[address] COMPREHENSIVE METABOLIC PANE Hua 10-31-2024 Albumin [Mass/Vol] 3.4 g/dL Normal 3.4-4.8 [facility] Comment on above: Performed By: #### L AB17 ####Shank Burnisher: ROSETTE ZHAO ([id number])[facility] (SBHLAB)[address] ALP [Catalytic activity/Vol] 75 U/L Normal 40-150 [facility] Comment on above: Performed By: #### L AB17 ####Shank Burnisher: ROSETTE ZHAO ([id number])[facility] (SBHLAB)[address] ALT [Catalytic activity/Vol] 33 U/L High <30 [facility] Comment on above: Performed By: #### L AB17 ####Shank Burnisher: ROSETTE ZHAO ([id number])[facility] [place] (SB[facility]AB)[address] Anion gap [Moles/Vol] 7 mmol/L Normal 3-13 [facility] Comment on above: Performed By: #### L AB17 ####Shank Burnisher: ROSETTE ZHAO ([id number])[facility] [place] (SBHLAB)[address] AST [Catalytic activity/Vol] 39 U/L High <34 [facility] Comment on above: Performed By: #### L AB17 ####Shank Burnisher: ROSETTE ZHAO ([id number])[facility] [place] (SBHLAB)[address] Bilirubin [Mass/Vol] 0.7 mg/dL Normal <1.2 [facility] Comment on above: Performed By: #### L AB17 ####Shank Burnisher: ROSETTE ZHAO ([id number])[facility] [place] (SB[facility]AB)[address] Calcium [Mass/Vol] 9.5 mg/dL Normal 8.8-10.0 [facility] Comment on above: Performed By: #### L AB17 ####Shank Burnisher: ROSETTE ZHAO ([id number])[facility]AL[facility] (SBHLAB)[address] Chloride [Moles/Vol] 104 mmol/L Normal 98-107 [facility] Comment on above: Performed By: #### L AB17 ####Shank Burnisher: ROSETTE ZHAO ([id number])[facility] [place] (SBHLAB)[address] CO2 [Moles/Vol] 24 mmol/L Normal 23-31 [facility] Comment on above: Performed By: #### L AB17 ####Shank Burnisher: ROSETTE ZHAO ([id number])[facility] [place] (SBHLAB)[address] Creatinine [Mass/Vol] 1.08 mg/dL Normal 0.57-1.11 [facility] Comment on above: Performed By: #### L AB17 ####Shank Burnisher: ROSETTE ZHAO ([id number])[facility]ALTH[facility]KEON[facility] CENTER[facility] (SBHLAB)[address] GLOMERULAR FILTRATION RATE ML/MIN/1.73 SQ M.PREDICTED 51.4 mL/min/1.73m*2 Low >60.0 [facility] Comment on above: Result Comment: Calc ulation based on the Chronic Kidney Disease Epidemiology Collaboration (CKD-EPI) equation refit without adjustment for race Performed By: #### L AB17 ####Shank Burnisher: ROSETTE ZHAO ([id number])[facility] [place] (SBHLAB)[address] Glucose [Mass/Vol] 98 mg/dL Normal 82-115 [facility] Comment on above: Performed By: #### L AB17 ####Shank Burnisher: ROSETTE ZHAO ([phone])[facility] (SBHLAB)[address] Potassium [Moles/Vol] 3.7 mmol/L Normal 3.5-5.1 [facility] Comment on above: Result Comment: [facility] potassium values may be up to 0.5 mmol/L lower than serum values. Performed By: #### L AB17 ####Shank Burnisher: ROSETTE ZHAO ([id number])[facility] [place] (SB[facility]AB)[address] Protein [Mass/Vol] 6.8 g/dL Normal 6.4-8.3 [facility] Comment on above: Performed By: #### L AB17 ####Shank Burnisher: ROSETTE ZHAO ([id number])[facility] [place] (SB[facility]AB)[address] Sodium [Moles/Vol] 135 mmol/L Low 136-145 [facility] Comment on above: Performed By: #### L AB17 ####Shank Burnisher: ROSETTE ZHAO ([id number])[facility] (SBHLAB)[address] Urea nitrogen [Mass/Vol] 24 mg/dL High 9-23 [facility] Comment on above: Performed By: #### L AB17 ####Shank Burnisher: ROSETTE ZHAO ([id number])[facility] (SB[facility])[address] [place] [address] Comprehensive metabolic 1998 panelon 10-31-2024 Albumin [Mass/Vol] 3.4 g/dL 3.4 - 4.8 g/dL [facility] ALP [Catalytic activity/Vol] 75 U/L 40 - 150 U/L [facility] ALT [Catalytic activity/Vol] 33 U/L High NINF - 30 U/L [facility] Anion gap [Moles/Vol] 7 mmol/L 3 - 13 mmol/L [facility] AST [Catalytic activity/Vol] 39 U/L High NINF - 34 U/L [facility] Bilirubin [Mass/Vol] 0.7 mg/dL NINF - 1.2 mg/dL [facility] Calcium [Mass/Vol] 9.5 mg/dL 8.8 - 10. 0 mg/dL [facility] Chloride [Moles/Vol] 104 mmol/L 98 - 10 7 mmol/L [facility] CO2 [Moles/Vol] 24 mmol/L 23 - 31 mmol/L [facility] Creatinine [Mass/Vol] 1.08 mg/dL 0.57 - 1.11 mg/dL [facility] GFR/1.73 sq M.predicted (S/P/Bld) [Vol rate/Area] 51.4 mL/min Low - PINF [facility] Comment on above: Calculation based on the Chronic Kidney Disease Epidemiology Collaboration (CKD-EPI) equation refit without adjustment for race Glucose [Mass/Vol] 98 mg/dL 82 - 115 mg/dL [facility] Interpretation and review of laboratory results Abnormal [facility] Potassium [Moles/Vol] 3.7 mmol/L 3.5 - 5.1 mmol/L [facility] Comment on above: Plasma potassium morro ues may be up to 0.5 mmol/L lower than serum values. Protein [Mass/Vol] 6.8 g/dL 6.4 - 8.3 g/dL [facility] Sodium [Moles/Vol] 135 mmol/L Low 136 - 145 mmol/L [facility] Urea nitrogen [Mass/Vol] 24 mg/dL High 9 - 23 mg/d L [facility] Consulton 10-31-2024 Consult Normal [facility] Progress Noteon 10-31-2024 Progress Note Normal [facility] Progress Note Normal [facility] Progress Note Normal [facility] Progress Note Nutrition rescreen complete. Pt assigned a level one for nutrition care. Normal [facility] 30on 10-30-2024 30 Normal [facility] [id number] 10-30-2024 [id number] Normal [facility] 36on 10-30-2024 36 [facility] 36 Received urgent new patient request from [facility] to schedule for Atrial Fibrillation. She is scheduled to see Dr. Conner 11/19/24, but should be seen sooner. Message to veneer taper to review for sooner appointment. Normal [facility] BASIC METABOLIC PANELon 10-19 Anion gap [Moles/Vol] 12 mmol/L Normal 3-13 [facility] Comment on above: Performed By: #### L AB15, LAB67, [id number] ####Shank Burnisher: ROSETTE ZHAO ([id number])[facility] [place] (SBHLAB)[address] Calcium [Mass/Vol] 9.3 mg/dL Normal 8.8-10.0 [facility] Comment on above: Performed By: #### L AB15, LAB67, [id number] ####Shank Burnisher: ROSETTE ZHAO ([id number])[facility] [place] (SBHLAB)[address] Chloride [Moles/Vol] 105 mmol/L Normal 98-107 [facility] Comment on above: Performed By: #### L AB15, LAB67, [id number] ####Shank Burnisher: ROSETTE ZHAO ([id number])[facility] [place] (SBHLAB)[address] CO2 [Moles/Vol] 20 mmol/L Low 23-31 [facility] Comment on above: Performed By: #### L AB15, LAB67, [id number] ####Shank Burnisher: ROSETTE ZHAO ([id number])[facility] [place] (SBHLAB)[address] Creatinine [Mass/Vol] 1.04 mg/dL Normal 0.57-1.11 [facility] Comment on above: Performed By: #### L AB15, LAB67, [id number] ####Shank Burnisher: ROSETTE ZHAO ([id number])[facility] [place] (SBHLAB)[address] [place] [address] [place] GLOMERULAR FILTRATION RATE ML/MIN/1.73 SQ M.PREDICTED 53.8 mL/min/1.73m*2 Low >60.0 [facility] Comment on above: Result Comment: Calc ulation based on the Chronic Kidney Disease Epidemiology Collaboration (CKD-EPI) equation refit without adjustment for race Performed By: #### L AB15, LAB67, [id number] ####Shank Burnisher: ROSETTE ZHAO ([id number])[facility] (SBHLAB)[address] Glucose [Mass/Vol] 126 mg/dL High 82-115 [facility] Comment on above: Performed By: #### L AB15, LAB67, [id number] ####Shank Burnisher: ROSETTE ZHAO ([id number])[facility] (SBHLAB)[address] Potassium [Moles/Vol] 3.4 mmol/L Low 3.5-5.1 [facility] Comment on above: Result Comment: [facility] potassium values may be up to 0.5 mmol/L lower than serum values. Performed By: #### L AB15, LAB67, [id number] ####Shank Burnisher: ROSETTE ZHAO ([id number])[facility] (SBHLAB)[address] Sodium [Moles/Vol] 137 mmol/L Normal 136-145 [facility] Comment on above: Performed By: #### L AB15, LAB67, [id number] ####Shank Burnisher: ROSETTE ZHAO ([id number])[facility] Urea nitrogen [Mass/Vol] 19 mg/dL Normal 9-23 [facility] Comment on above: Performed By: #### L AB15, LAB67, [id number] ####Shank Burnisher: ROSETTE ZHAO ([id number])[facility] (SBHLAB)[address] Basic metabolic 1998 panelon 10-30-2024 Anion gap [Moles/Vol] 12 mmol/L 3 - 13 mmol/L [facility] Calcium [Mass/Vol] 9.3 mg/dL 8.8 - 10. 0 mg/dL [facility] Chloride [Moles/Vol] 105 mmol/L 98 - 10 7 mmol/L [facility] CO2 [Moles/Vol] 20 mmol/L Low 23 - 31 mmol/L [facility] Creatinine [Mass/Vol] 1.04 mg/dL 0.57 - 1.11 mg/dL [facility] GFR/1.73 sq M.predicted (S/P/Bld) [Vol rate/Area] 53.8 mL/min Low - PINF [facility] Comment on above: Calculation based on the Chronic Kidney Disease Epidemiology Collaboration (CKD-EPI) equation refit without adjustment for race Glucose [Mass/Vol] 126 mg/dL High 82 - 115 mg/dL [facility] Interpretation and review of laboratory results Abnormal [facility] Potassium [Moles/Vol] 3.4 mmol/L Low 3.5 - 5.1 mmol/L [facility] Comment on above: Plasma potassium morro ues may be up to 0.5 mmol/L lower than serum values. Sodium [Moles/Vol] 137 mmol/L 136 - 145 mmol/L [facility] Urea nitrogen [Mass/Vol] 19 mg/dL 9 - 23 mg/d L [facility] CBC (HEMOGRAM)on 10-30-2024 Erythrocyte distribution width (RBC) [Ratio] 13.4 % Normal 11.5-15.0 [facility] Comment on above: Performed By: #### L AB294 ####Shank Burnisher: ROSETTE ZHAO ([id number])[facility] ([facility])[address] [place] [address] Hematocrit (Bld) [Volume fraction] 41.2 % Normal 35.0-47.0 [facility] Comment on above: Performed By: #### L AB294 ####Shank Burnisher: ROSETTE ZHAO ([id number])[facility] ([facility])[address] [place] [address] Hemoglobin (Bld) [Mass/Vol] 13.4 g/dL Normal 11.7-16.0 [facility] Comment on above: Performed By: #### L [id number] ####Shank Burnisher: ROSETTE ZHAO ([id number])[facility] ([facility])[address] [place] [address] MCH (RBC) [Entitic mass] 31.8 pg Normal 26.0-34.0 [facility] Comment on above: Performed By: #### L [id number] ####Shank Burnisher: ROSETTE ZHAO ([id number])SALAS SANDOVALKeren (SBHLAB)[address] MCHC 32.5 % Normal 30.5-36.0 [facility] Comment on above: Performed By: #### L [id number] ####Shank Burnisher: ROSETTE ZHAO ([id number])[facility] HEALTHYamilet MCKEONCH[facility] CENTERN (SBHLAB)[address] MCV (RBC) [Entitic vol] 97.9 fL Normal 77.0-99.0 S [facility] Comment on above: Performed By: #### L [id number] ####Shank Burnisher: ROSETTE ZHAO ([id number])PREMIER HEALTHaYmilet [facility]ON[facility]YSICIANS MEDICAL CENTERKeren (SBHLAB)[address] Platelet mean volume (Bld) [Entitic vol] 8.8 fL Low 9.0-12.7 [facility] Comment on above: Performed By: #### L AB294 ####Shank Burnisher: ROSETTE ZHAO ([id number])PREMIER HEALTHYamilet [facility]ENTERN (SBHLAB)[address] Platelets (Bld) [#/Vol] 315 10*3/uL Normal 140-440 [facility] Comment on above: Performed By: #### L AB294 ####Shank Burnisher: ROSETTE ZHAO ([id number])PREMIER HEALTHYamilet [facility] CENTERN (SBHLAB)155 [place] [address] [place] RBC (Bld) [#/Vol] 4.21 10*6/uL Normal 3.80-5.20 [facility] Comment on above: Performed By: #### L AB294 ####Shank Burnisher: ROSETTE ZHAO ([id number])PREMIER HEALTHYamilet [facility]ENTERN (SBHLAB)155 [place] [address] [place] WBC (Bld) [#/Vol] 7.8 10*3/uL Normal 3.6-10.7 [facility] Comment on above: Performed By: #### L [id number] ####Shank Burnisher: ROSETTE ZHAO ([id number])[facility] PETER (SBHLAB)[address] [place] [address] CBC panel Auto (Bld)on 10-30 Erythrocyte distribution width (RBC) [Ratio] 13.4 % 11.5 - 15.0 % [facility] Hematocrit (Bld) [Volume fraction] 41.2 % 35.0 - 47.0 % [facility] Hemoglobin (Bld) [Mass/Vol] 13.4 g/dL 11.7 - 16.0 g/dL [facility] Interpretation and review of laboratory results Abnormal [facility] MCH (RBC) [Entitic mass] 31.8 pg 26. 0 - 34.0 pg [facility] MCHC (RBC) [Mass/Vol] 32.5 % 30.5 - 36.0 % [facility] MCV (RBC) [Entitic vol] 97.9 fL 77.0 - 99.0 fL [facility] Platelet mean volume (Bld) [Entitic vol] 8.8 fL Low 9.0 - 12.7 fL [facility] Platelets (Bld) [#/Vol] 315 10*3/uL 140 - 440 10*3/uL [facility] RBC (Bld) [#/Vol] 4.21 10*6/uL 3.80 - 5.2 0 10*6/uL [facility] WBC (Bld) [#/Vol] 7.8 10*3/uL 3.6 - 10.7 10*3/uL [facility] Cobalamin (Vitamin B12) [Mas s/Vol]on 10-30-2024 Interpretation and review of laboratory results Abnormal [facility] Consulton 10-30-2024 Consult Normal [facility] Consult Normal [facility] ECG 12-LEADon 10-30-2024 ECG 12-LEAD IMPRESSION: Atrial fibrillation Left anterior fascicular block Anteroseptal infarct, old Abnormal T, consider ischemia, lateral leads no stemi Electronically Signed On 10-30-2024 07:01:44 EDT by Jt Diaz Normal [facility] ED Nursing Noteon 10-30-2024 ED Nursing Note Report called to Mark nurse Normal [facility] ED Nursing Note Report called to Gloria Normal [facility] Laboratory - Chemistry and C hemistry - challengeon 10-30-2024 Cobalamin (Vitamin B12) [Mass/Vol] 1124 pg/mL High 213 - 816 pg/mL [facility] [employer] Magnesium [Mass/Vol] 1.9 mg/dL 1.6 - 2 .6 mg/dL [facility] MAGNESIUMon 10-30-2024 Magnesium [Mass/Vol] 1.9 mg/dL Normal 1.6-2.6 [facility] Comment on above: Result Comment: HUSSAIN Bhatt COMMENTS:Higher values can be expected in females during menses. Performed By: #### L AB15, LAB67, [id number] ####Shank Burnisher: ROSETTE ZHAO ([id number])[facility] (SBHLAB)[address] [place] [address] Magnesium [Mass/Vol]on 10-30 Interpretation and review of laboratory results Normal [facility] Higher values can be expected in females during menses. [facility] Desk [employer] No Panel InformationOrdered By: Jt Diaz on 10-30-2024 P [place] 0 degrees [employer] Work Phone: FL Interval 0 ms [employer] Work Phone: QRS [place] -52 degrees [employer] Work Phone: QRSD Interval 93 ms [facility] YesPlz! Work Phone: QT Interval 350 ms [employer] Work Phone: QTC Interval 462 ms [employer] Work Phone: T Wave [place] 0 degrees [employer] Work Phone: Roadmap Work Phone: No Panel Informationon 10-30 Atrial fibrillation Left anterior fascicular block Anteroseptal infarct, old Abnormal T, consider ischemia, lateral leads no stemi Electronically Signed On 10-30-2024 07:01:44 EDT by Jt Diaz CV Jt Skelton MD - 10/30/2024 IMPRESSION: Atrial fibrillation Left anterior fascicular block Anteroseptal infarct, old Abnormal T, consider ischemia, lateral leads no stemi Electronically Signed On 10-30-2024 07:01:44 EDT by Jt Diaz [facility] Nursing Noteon 10-30-2024 Nursing Note Normal [facility] Progress Noteon 10-30-2024 Progress Note Normal [facility] Progress Note Normal [facility] VITAMIN B12on 10-30-2024 Cobalamin (Vitamin B12) [Mass/Vol] 1124 pg/mL High 213-816 [facility] Comment on above: Performed By: #### L AB15, LAB67, [id number] ####Shank Burnisher: ROSETTE ZHAO ([id number])[facility] (SBHLAB)[address] [place] [address] Vital signsOrdered By: Shaka Diaz on 10-30-2024 Heart rate 104 /min bpm [facility] Work Phone: BASIC METABOLIC PANELon 10-19 Anion gap [Moles/Vol] 9 mmol/L Normal 3-13 [facility] Comment on above: Performed By: #### L AB15, [id number] ####Shank Burnisher: SHEEBA MUSTAFA ([id number])[facility] (SWRLAB)[address] [place] [address] Calcium [Mass/Vol] 9.7 mg/dL Normal 8.8-10.0 [facility] Comment on above: Performed By: #### L AB15, [id number] ####Shank Burnisher: SHEEBA MUSTAFA ([id number])[facility] (SWRLAB)[address] [place] [address] [place] Chloride [Moles/Vol] 105 mmol/L Normal 98-107 [facility] Comment on above: Performed By: #### L AB15, [id number] ####Shank Burnisher: SHEEBA MUSTAFA ([phone])[facility] (SWRLAB)[address] [place], [place] [address] [place] CO2 [Moles/Vol] 25 mmol/L Normal 23-31 [facility] Comment on above: Performed By: #### L AB15, [id number] ####Shank Burnisher: SHEEBA MUSTAFA ([id number])PREMIER HEALTHYamilet [facility] (SWRLAB)[address] Creatinine [Mass/Vol] 1.17 mg/dL High 0.57-1.11 [facility] Comment on above: Performed By: #### L AB15, [id number] ####Shank Burnisher: SHEEBA MUSTAFA ([id number])[facility] HEALTHYamilet [facility] (SWRLAB)[address] [place] [address] [place] GLOMERULAR FILTRATION RATE ML/MIN/1.73 SQ M.PREDICTED 46.7 mL/min/1.73m*2 Low >60.0 [facility] Comment on above: Result Comment: Calc ulation based on the Chronic Kidney Disease Epidemiology Collaboration (CKD-EPI) equation refit without adjustment for race Performed By: #### L AB15, [id number] ####Shank Burnisher: SHEEBA MUSTAFA ([id number])[facility] HEALTHYamilet [facility] (SWRLAB)[address] [place] [address] [place] Glucose [Mass/Vol] 145 mg/dL High 82-115 [facility] Comment on above: Performed By: #### L AB15, [id number] ####Shank Burnisher: SHEEBA MUSTAFA ([id number])[facility] HEALTHYamilet [facility] (SWRLAB)[address] [place] [address] [place] Potassium [Moles/Vol] 3.9 mmol/L Normal 3.5-5.1 [facility] Comment on above: Result Comment: [facility] potassium values may be up to 0.5 mmol/L lower than serum values. Performed By: #### L AB15, [id number] ####Shank Burnisher: SHEEBA MUSTAFA ([id number])[facility] HEALTHYamilet [facility] (SWRLAB)[address] [place] [address] [place] Sodium [Moles/Vol] 139 mmol/L Normal 136-145 [facility] Comment on above: Performed By: #### L AB15, [id number] ####Shank Burnisher: SHEEBA MUSTAFA ([id number])[facility] (SWRLAB)[address] Urea nitrogen [Mass/Vol] 19 mg/dL Normal 9-23 [facility] Comment on above: Performed By: #### L AB15, [id number] ####Shank Burnisher: SHEEBA MUSTAFA ([id number])[facility] DEBORAHTMAN (SWRLAB)[address] Basic metabolic 1998 panelon 10-29-2024 Anion gap [Moles/Vol] 9 mmol/L 3 - 13 mmol/L [facility] Calcium [Mass/Vol] 9.7 mg/dL 8.8 - 10. 0 mg/dL [facility] Chloride [Moles/Vol] 105 mmol/L 98 - 10 7 mmol/L [facility] CO2 [Moles/Vol] 25 mmol/L 23 - 31 mmol/L [facility] Creatinine [Mass/Vol] 1.17 mg/dL High 0.57 - 1.11 mg/dL [facility] GFR/1.73 sq M.predicted (S/P/Bld) [Vol rate/Area] 46.7 mL/min Low - PINF [facility] Comment on above: Calculation based on the Chronic Kidney Disease Epidemiology Collaboration (CKD-EPI) equation refit without adjustment for race Glucose [Mass/Vol] 145 mg/dL High 82 - 115 mg/dL [facility] Interpretation and review of laboratory results Abnormal [facility] Potassium [Moles/Vol] 3.9 mmol/L 3.5 - 5.1 mmol/L [facility] Comment on above: Plasma potassium morro ues may be up to 0.5 mmol/L lower than serum values. Sodium [Moles/Vol] 139 mmol/L 136 - 145 mmol/L [facility] Urea nitrogen [Mass/Vol] 19 mg/dL 9 - 23 mg/d L [facility] C-REACTIVE PROTEINon 025 CRP [Mass/Vol] 6.5 mg/L High <5.0 [facility] Comment on above: Performed By: #### L AB99, [id number], LAB17, [id number] ####Shank Burnisher: SHEEBA MUSTAFA ([id number])[facility] (SWRLAB)[address] [place] [address] COMPLETE URINALYSISon 2024 BILIRUBIN, TOTAL PRESENCE IN URINE Negative Normal Negative [facility] Comment on above: Performed By: #### L AB347 ####Shank Burnisher: SHEEBA MUSTAFA ([phone])[facility] (SWRLAB)[address] [place] [address] Clarity (U) Clear Normal Clear [facility] Comment on above: Performed By: #### L AB347 ####Shank Burnisher: SHEEBA MUSTAFA ([id number])[facility] (SWRLAB)[address] [place] [address] Color (U) Light Yellow Normal Lt. Yellow [facility] Comment on above: Performed By: #### L AB347 ####Shank Burnisher: SHEEBA MUSTAFA ([id number])[facility] (SWRLAB)[address] [place] [address] [place] GLUCOSE (MG/DL) IN URINE Normal Normal Normal (<70 ) [facility] Comment on above: Performed By: #### L AB347 ####Shank Burnisher: SHEEBA MUSTAFA ([id number])[facility] (SWRLAB)[address] [place] [address] [place] HEMOGLOBIN PRESENCE IN URINE Negative Normal Negative [facility] Comment on above: Performed By: #### L AB347 ####Shank Burnisher: SHEEBA MUSTAFA ([id number])[facility] (SWRLAB)[address] [place] [address] [place] Ketones Ql (U) Negative Normal Negative [facility] Comment on above: Performed By: #### L AB347 ####Shank Burnisher: SHEEBA MUSTAFA ([id number])PREMI[facility] HEALTHYamilet [facility] (SWRLAB)[address] [place] [address] [place] LEUKOCYTE ESTERASE PRESENCE IN URINE BY TEST STRIP Negative Normal Negative [facility] Comment on above: Performed By: #### L AB347 ####Shank Burnisher: SHEEBA MUSTAFA ([id number])[facility] HEALTHYamilet [facility] (SWRLAB)[address] [place] [address] [place] NITRITE PRESENCE IN URINE Negative Normal Negative [facility] Comment on above: Performed By: #### L AB347 ####Shank Burnisher: SHEEBA MUSTAFA ([id number])[facility] HEALTHYamilet [place] [place] (SWRLAB)[address] pH (U) 6.5 [pH] Normal 5.0-8.0 [facility] Comment on above: Performed By: #### L AB347 ####Shank Burnisher: SHEEBA MUSTAFA ([id number])[facility] HEALTHYamilet [facility] (SWRLAB)[address] [place] [address] [place] Protein (U) [Mass/Vol] Negative Normal Negative [facility] Comment on above: Performed By: #### L AB347 ####Shank Burnisher: SHEEBA MUSTAFA ([id number])PREMIER HEALTHYamilet [facility] (SWRLAB)[address] [place] [address] Specific gravity (U) [Rel density] 1.008 Normal 1.005-1.030 [facility] Comment on above: Performed By: #### L AB347 ####Shank Burnisher: SHEEBA MUSTAFA ([id number])PREMIER HEALTHYamilet [facility] (SWRLAB)[address] [place] [address] [place] UROBILINOGEN (MG/DL) IN URINE Normal Normal Normal (0-1) [facility] Comment on above: Performed By: #### L AB347 ####Shank Burnisher: SHEEBA MUSTAFA ([id number])[facility] HEALTHYamilet [facility] (SWRLAB)[address] [place] [address] [place] COMPREHENSIVE METABOLIC PANE Hua 10-29-2024 Albumin [Mass/Vol] 3.6 g/dL Normal 3.4-4.8 [facility] Comment on above: Performed By: #### L AB99, [id number], LAB17, FQU029 ####Shank Burnisher: SHEEBA MUSTAFA ([id number])[facility] HEALTHYamilet [facility] (SWRLAB)[address] ALP [Catalytic activity/Vol] 84 U/L Normal 40-150 [facility] Comment on above: Performed By: #### L AB99, [id number], LAB17, RAK457 ####Shank Burnisher: SHEEBA MUSTAFA ([id number])[facility] HEALTHYamilet [facility] (SWRLAB)[address] [place] [address] ALT [Catalytic activity/Vol] 37 U/L High <30 [facility] Comment on above: Performed By: #### L AB99, GQR132, LAB17, EFA120 ####Shank Burnisher: SHEEBA MUSTAFA ([id number])[facility] HEALTHYamilet [facility] (SWRLAB)[address] [place] [address] Anion gap [Moles/Vol] 9 mmol/L Normal 3-13 [facility] Comment on above: Performed By: #### L AB99, OSV456, LAB17, UKM483 ####Shank Burnisher: SHEEBA MUSTAFA ([id number])[facility] HEALTHYamilet [facility] (SWRLAB)[address] [place] [address] AST [Catalytic activity/Vol] 37 U/L High <34 [facility] Comment on above: Performed By: #### L AB99, XRU670, LAB17, MGG428 ####Shank Burnisher: SHEEBA MUSTAFA ([id number])[facility]ALTHYamilet [facility] (SWRLAB)[address] [place] [address] Bilirubin [Mass/Vol] 0.6 mg/dL Normal <1.2 [facility] Comment on above: Performed By: #### L AB99, RVP495, LAB17, EZM250 ####Shank Burnisher: SHEEBA MUSTAFA ([id number])[facility]ALTHYamile[facility] (SWRLAB)[address] [place] [address] [place] Calcium [Mass/Vol] 9.7 mg/dL Normal 8.8-10.0 [facility] Comment on above: Performed By: #### L AB99, GRY765, LAB17, LAJ800 ####Shank Burnisher: SHEEBA MUSTAFA ([id number])[facility]ALTHYam[facility] (SWRLAB)[address] [place] [address] [place] Chloride [Moles/Vol] 108 mmol/L High 98-107 [facility] Comment on above: Performed By: #### L AB99, UOD931, LAB17, REB464 ####Shank Burnisher: SHEEBA MUSTAFA ([id number])[facility] HEALTHYamilet [facility] (SWRLAB)[address] [place] [address] [place] CO2 [Moles/Vol] 21 mmol/L Low 23-31 [facility] Comment on above: Performed By: #### L AB99, AGB015, LAB17, ZIY521 ####Shank Burnisher: SHEEBA MUSTAFA ([id number])[facility]ALTHYamile[facility] (SWRLAB)[address] [place] [address] [place] Creatinine [Mass/Vol] 1.06 mg/dL Normal 0.57-1.11 [facility] Comment on above: Performed By: #### L AB99, TGN820, LAB17, KEO148 ####Shank Burnisher: SHEEBA MUSTAFA ([id number])[facility]ALTHYamilet [facility] (SWRLAB)[address] [place] [address] [place] GLOMERULAR FILTRATION RATE ML/MIN/1.73 SQ M.PREDICTED 52.6 mL/min/1.73m*2 Low >60.0 [facility] Comment on above: Result Comment: Calc ulation based on the Chronic Kidney Disease Epidemiology Collaboration (CKD-EPI) equation refit without adjustment for race Performed By: #### L AB99, VDF789, LAB17, IYQ228 ####Shank Burnisher: SHEEBA MUSTAFA ([id number])[facility]ALTHYamile[facility] (SWRLAB)[address] [place] [address] [place] Glucose [Mass/Vol] 98 mg/dL Normal 82-115 [facility] Comment on above: Performed By: #### L AB99, BDE299, LAB17, XWQ160 ####Shank Burnisher: SHEEBA MUSTAFA ([id number])[facility]ALTHYamilet [facility] (SWRLAB)[address] Potassium [Moles/Vol] 4.0 mmol/L Normal 3.5-5.1 [facility] Comment on above: Result Comment: [facility] potassium values may be up to 0.5 mmol/L lower than serum values. Performed By: #### L AB99, XQW912, LAB17, RHI152 ####Shank Burnisher: SHEEBA MUSTAFA ([id number])[facility]ALTH[facility]am[facility] (SWRLAB)[address] Protein [Mass/Vol] 7.3 g/dL Normal 6.4-8.3 [facility] Comment on above: Performed By: #### L AB99, [id number], LAB17, DQN367 ####Shank Burnisher: SHEEBA MUSTAFA ([id number])[facility]ALTHYamile[facility] (SWRLAB)[address] [place] [address] [place] Sodium [Moles/Vol] 138 mmol/L Normal 136-145 [facility] Comment on above: Performed By: #### L AB99, [id number], LAB17, ZJY544 ####Shank Burnisher: SHEEBA MUSTAFA ([id number])[facility]ALTH[facility]am[facility] (SWRLAB)[address] [place] [address] [place] Urea nitrogen [Mass/Vol] 18 mg/dL Normal 9-23 [facility] Comment on above: Performed By: #### L AB99, [id number], LAB17, MLB096 ####Shank Burnisher: SHEEBA MUSTAFA ([id number])[facility] (SWRLAB)[address] [place] [address] [facility] Comprehensive metabolic 1998 panelon 10-29-2024 Albumin [Mass/Vol] 3.6 g/dL 3.4 - 4.8 g/dL [facility] ALP [Catalytic activity/Vol] 84 U/L 40 - 150 U/L [facility] ALT [Catalytic activity/Vol] 37 U/L High NINF - 30 U/L [facility] Anion gap [Moles/Vol] 9 mmol/L 3 - 13 mmol/L [facility] AST [Catalytic activity/Vol] 37 U/L High NINF - 34 U/L [facility] Bilirubin [Mass/Vol] 0.6 mg/dL NINF - 1.2 mg/dL [facility] Calcium [Mass/Vol] 9.7 mg/dL 8.8 - 10. 0 mg/dL [facility] Chloride [Moles/Vol] 108 mmol/L High 98 - 10 7 mmol/L [facility] CO2 [Moles/Vol] 21 mmol/L Low 23 - 31 mmol/L [facility] Creatinine [Mass/Vol] 1.06 mg/dL 0.57 - 1.11 mg/dL [facility] GFR/1.73 sq M.predicted (S/P/Bld) [Vol rate/Area] 52.6 mL/min Low - PINF [facility] Comment on above: Calculation based on the Chronic Kidney Disease Epidemiology Collaboration (CKD-EPI) equation refit without adjustment for race Glucose [Mass/Vol] 98 mg/dL 82 - 115 mg/dL [facility] Potassium [Moles/Vol] 4 mmol/L 3.5 - 5.1 mmol/L [facility] Comment on above: Plasma potassium morro ues may be up to 0.5 mmol/L lower than serum values. Protein [Mass/Vol] 7.3 g/dL 6.4 - 8.3 g/dL [facility] Sodium [Moles/Vol] 138 mmol/L 136 - 145 mmol/L [facility] Urea nitrogen [Mass/Vol] 18 mg/dL 9 - 23 mg/d L [facility] D-DIMER,QUANTITATIVEon 10-29 D-DIMER, INNOVANCE 0.81 mg/L High <0.50 [facility] Comment on above: Result Comment: HUSSAIN Bhatt COMMENTS:[employer] D-Dimer values of <0.50 mg/L FEU can be used in combination with a pre-test probability model (e.g. Well's) to exclude pulmonary embolism (PE) disease, as well as an aid in the diagnosis of deep vein thrombosis (DVT). Performed By: #### L [id number] ####Shank Burnisher: SHEEBA MUSTAFA ([phone])[facility] (SWRLAB)[address] [place] [address] ECG 12-LEADon 10-29-2024 ECG 12-LEAD IMPRESSION: Atrial fibrillation Left anterior fascicular block hr improved from prior ekg Electronically Signed On 10-29-2024 09:39:59 EDT by Marcos Araujo Normal [facility] ED Nursing Noteon 10-29-2024 ED Nursing Note Normal [facility] ED Nursing Note Patient has been incontinent of three loose bowel movements. Patient had a small emesis. Linens and gown changed, juanis care given. New purwick applied. Patient is also c/o leg cramps. Dr. Araujo aware. Normal [facility] ED Nursing Note Pur wick initiated due to incontinence, and strict intake and output. Normal [facility] ED Nursing Note Patient to room 4 with c/o atrial fibrillation that is chronic via [facility]. Per EMS it was reported to them that the patient did not sleep well last night. V/S obtained, EKG completed, call light within reach. Normal [facility] ED Provider Noteon ED Provider Note Normal [facility] Fibrin D-dimer FEU (PPP) [Ma ss/Vol]on 10-29-2024 Interpretation and review of laboratory results Abnormal [facility]-Dimer values of <0.50 mg/L FEU can be used in combination with a pre-test probability model (e.g. Well's) to exclude pulmonary embolism (PE) disease, as well as an aid in the diagnosis of deep vein thrombosis (DVT). [facility] HIGH SENSITIVITY TROPONIN, S ERIAL BASELINEon 10-29-2024 TROPONIN HS SERIAL BASELINE 18 ng/L High <=14 [facility] Comment on above: Result Comment: In i ndividuals presenting with symptoms > 2h, a baseline troponin <= 5 ng/L suggests acutecardiac injury is unlikely and further serial testing is generally not indicated. Performed By: #### L [id number] ####Shank Burnisher: SHEEBA MUSTAFA ([id number])[facility] (SWRLAB)[address] [place] [address] TROPONIN HS SERIAL BASELINE 19 ng/L High <=14 [facility] Comment on above: Result Comment: In i ndividuals presenting with symptoms > 2h, a baseline troponin <= 5 ng/L suggests acutecardiac injury is unlikely and further serial testing is generally not indicated. Performed By: #### L [id number] ####Shank Burnisher: SHEEBA MUSTAFA ([id number])[facility] [employer] (SWRLAB)[address] [place] [address] HIGH SENSITIVITY TROPONIN, S ERIAL, SECOND TESTon 10-29-2024 2H TROPONIN HS (SERIAL 2ND TROPONIN) 19 ng/L High <=14 [facility] Comment on above: Result Comment: Risi ng or falling troponin delta below 2 ng/L as compared to baseline value suggests thatacute cardiac injury is unlikely. Performed By: #### L [id number] ####Shank Burnisher: SHEEBA MUSTAFA ([id number])[facility] [employer]itness[employer]eeperTAYLOR (SWRLAB)[address] [place] [address] LIPASEon 10-29-2024 Lipase [Catalytic activity/Vol] 26 U/L Normal <55 [facility] Comment on above: Performed By: #### L AB99, [id number], LAB17, [id number] ####Shank Burnisher: SHEEBA MUSTAFA ([id number])[facility] [employer] (SWRLAB)[address] [place] [address] Laboratory - Chemistry and C hemistry - challengeon 10-29-2024 Magnesium [Mass/Vol] 2 mg/dL 1.6 - 2 .6 mg/dL [facility] [employer] Lipase [Catalytic activity/Vol] 26 U/L NINF - 55 U/L [facility] CRP [Mass/Vol] 6.5 mg/L High NINF - 5.0 mg/L [facility] Laboratory - Coagulationon 0 10-29-2024 Fibrin D-dimer FEU (PPP) [Mass/Vol] 0.81 mg/L High NINF - 0.50 mg/L [facility] Laboratory - Microbiology an d Antimicrobial susceptibilityon 10-29-2024 FLUAV RNA ISSAC+probe Ql (Resp) Not detected Not Detected [facility] FLUBV RNA ISSAC+probe Ql (Resp) Not detected Not Detected [facility] RSV RNA ISSAC+probe Ql (Resp) Not detected Not Detected [facility] SARS-CoV-2 (COVID-19) RNA ISSAC+probe Ql (Resp) Not detected Not Detected [facility] SARS-CoV-2 (COVID-19) RNA ISSAC+probe Ql (Unsp spec) Methodology: real-time, RT-PCR The SARS-CoV-2, Flu A/B, and RSV Combo assay is intended for in vitro diagnostic use under the FDA Emergency Use Authorization (EUA). This test has not been FDA cleared or approved. In compliance with this authorization, please visit www.fda.gov/media/ 7981/download or www.fda.gov/media/ 3604/download to access the applicable information sheets. [facility] Lipase [Catalytic activity/V ol]on 10-29-2024 Interpretation and review of laboratory results Normal [facility] MAGNESIUMon 10-29-2024 Magnesium [Mass/Vol] 2.0 mg/dL Normal 1.6-2.6 [facility] Comment on above: Result Comment: HUSSAIN Bhatt COMMENTS:Higher values can be expected in females during menses. Performed By: #### L [id number], [id number] ####Shank Burnisher: SHEEBA MUSTAFA ([phone])[facility] (SWRL[facility])[address] [place] [address] Magnesium [Mass/Vol]on 10-29 Interpretation and review of laboratory results Normal [facility] Higher values can be expected in females during menses. [facility] NT PRO BNPon 10-29-2024 Natriuretic peptide B (Bld) [Mass/Vol] 64386 pg/mL High <450 [facility] Comment on above: Performed By: #### L AB99, [id number], [id number], [id number] ####Shank Burnisher: SHEEBA MUSTAFA ([id number])[facility] ([facility])[address] [place] [address] Natriuretic peptide B [Mass/ Vol]on 10-29-2024 Interpretation and review of laboratory results Abnormal [facility] Natriuretic peptide B (Bld) [Mass/Vol] 65265 pg/mL High NINF - 450 pg/mL [facility] No Panel Informationon 10-29 [facility] Interpretation and review of laboratory results Abnormal [facility] Troponin HS Serial Baseline 18 ng/L High NINF - 14 ng/L [facility] Comment on above: In individuals prese nting with symptoms > 2h, a baseline troponin <= 5 ng/L suggests acute cardiac injury is unlikely and further serial testing is generally not indicated. [facility] 2h Troponin HS (Serial 2nd Troponin) 19 ng/L High NINF - 14 ng/L [facility] Comment on above: Rising or falling tr oponin delta below 2 ng/L as compared to baseline value suggests that acute cardiac injury is unlikely. Interpretation and review of laboratory results Abnormal [facility] Interpretation and review of laboratory results Abnormal [facility] Troponin HS Serial Baseline 19 ng/L High NINF - 14 ng/L [facility] Comment on above: In individuals prese nting with symptoms > 2h, a baseline troponin <= 5 ng/L suggests acute cardiac injury is unlikely and further serial testing is generally not indicated. [facility] Interpretation and review of laboratory results Abnormal [facility] P [place] 0 degrees [facility] FL Interval 0 ms [facility] QRS [place] -40 degrees [facility] QRSD Interval 84 ms [facility] QT Interval 350 ms [facility] QTC Interval 467 ms [facility] T Wave [place] 122 degrees [facility] Atrial fibrillation Left anterior fascicular block hr improved from prior ekg Electronically Signed On 10-29-2024 09:39:59 EDT by Marcos Araujo CV Marcos Garza MD - 10/29/2024 IMPRESSION: Atrial fibrillation Left anterior fascicular block hr improved from prior ekg Electronically Signed On 10-29-2024 09:39:59 EDT by Marcos Araujo [facility] SARS-COV-2, FLU A/B, AND RSV COMBOon 10-29-2024 SARS-CoV-2 (COVID-19) RNA ISSAC+probe Ql (Unsp spec) Normal [facility] Comment on above: Performed By: #### L [id number] ####Shank Burnisher: SHEEBA MUSTAFA ([id number])[facility] ([facility])[address] [place] [address] SARS-CoV-2, Flu A/B, and RSV Comboon 10-29-2024 Interpretation and review of laboratory results Normal [facility] Urinalysis complete panel (U )on 10-29-2024 Bilirubin Ql (U) Negative Negative mg/dL [facility] Clarity (U) Clear Clear [facility] Color (U) Light Yellow Lt. Yellow [facility] Glucose Ql (U) Normal Normal (<70) mg/dL [facility] Hemoglobin Ql (U) Negative Negative mg/dL [facility] Interpretation and review of laboratory results Normal [facility] Ketones (U) [Mass/Vol] Negative Negat jaciel mg/dL [facility] Leukocyte esterase Test strip Ql (U) Negative Negative Cathy/uL [facility] Nitrite Ql (U) Negative Negative [facility] pH (U) 6.5 [pH] 5.0 - 8.0 pH [facility] Protein (U) [Mass/Vol] Negative Negat jaciel mg/dL [facility] Specific gravity (U) [Rel density] 1.008 1.005 - 1.030 [facility] Urobilinogen (U) [Mass/Vol] Normal Normal (0-1) mg/dL [facility] Vital signson 10-29-2024 Heart rate 107 /min bpm [facility] XR Chest 2 Viewson Mild atelectasis in left lung base. 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 [facility] Jt Munson MD - 10/29/2024 Patient Name: SOMMER FRIEDMAN : 1940 Exam [...] Electronically Signed Date/Time: 10/29/2024 10:55 AM EDT [facility] Radiology Study observation (narrative) [facility] alth XR Chest 2 ViewsOrdered By: Jt Munson on 10-29-2024 [facility] Work Phone: Anion gap in Serum or Plasma Ordered By: Kathi Juarez on 10-28-2024 Anion gap [Moles/Vol] 12 mmol/L - [facility] BUN/creatinine ratioOrdered By: Kathi Juarez on 10-28-2024 Urea nitrogen/Creatinine [Mass ratio] 20.8 mg/mg High 10- [facility] Carbon dioxide, total [Moles /volume] in Central venous bloodOrdered By: Kathi Juarez on 10-28-2024 CO2 [Moles/Vol] 21.0 mmol/L 21.0-32.0 [facility] Chloride assayOrdered By: Emir Juarez on 10-28-2024 Chloride [Moles/Vol] 106 mmol/L 98-108 [facility] Glomerular filtration rate ( GFR) estimation/1.73 sq m using serum, plasma, or whole bOrdered By: Kathi Juarez on 10-28-2024 GFR/1.73 sq M.predicted among non-blacks MDRD (S/P/Bld) [Vol rate/Area] 55 mL/min/{1.73_m2} Low >60 [facility] Comment on above: mL/min/1.73m2 CKD-EP I Creatinine Equation (2020) Potassium measurement (mass/ volume)Ordered By: Kathi Juarez on 10-28-2024 Potassium (Unsp spec) [Mass/Vol] 4.3 mmol/L 3.3-5.1 [facility] Serum creatinine measurement (mass/volume)Ordered By: Kathi Juarez on 10-28-2024 Creatinine [Mass/Vol] 1.02 mg/dL 0.70-1.20 [facility] Serum glucose measurement (m ass/volume)Ordered By: Kathi Juarez on 10-28-2024 Glucose [Mass/Vol] 103 mg/dL High 70-99 [facility] Serum or plasma calcium adam urement (mass/volume)Ordered By: Kathi Juarez on 10-28-2024 Calcium [Mass/Vol] 9.3 mg/dL 7.6-11.0 [facility] Serum or plasma urea nitroge n measurement (mass/volume)Ordered By: Kathi Juarez on 10-28-2024 Urea nitrogen [Mass/Vol] 21 mg/dL High 4-19 [facility] Sodium levelOrdered By: Fuentes Juarez on 10-28-2024 Sodium [Moles/Vol] 138 mmol/L 133-145 [facility] Anion gap in Serum or Plasma Ordered By: Kathi Juarez on 10-25-2024 Anion gap [Moles/Vol] 11 mmol/L 5-15 [facility] BUN/creatinine ratioOrdered By: Kathi Juarez on 10-25-2024 Urea nitrogen/Creatinine [Mass ratio] 18.5 mg/mg 10-20 [facility] Carbon dioxide, total [Moles /volume] in Central venous bloodOrdered By: Kathi Juarez on 10-25-2024 CO2 [Moles/Vol] 22.2 mmol/L 21.0-32.0 [facility] Chloride assayOrdered By: Emir Juarez on 10-25-2024 Chloride [Moles/Vol] 104 mmol/L 98-108 [facility] Erythrocyte distribution wid th ratioOrdered By: Kathi Juarez on 10-25-2024 Erythrocyte distribution width (RBC) [Ratio] 13.5 % 11.6-14.6 [facility] Erythrocyte distribution wid th standard deviationOrdered By: Kathi Juarez on 10-25-2024 Erythrocyte distribution width (RBC) [Ratio] 49.5 fl High 35.1-43.9 [facility] Glomerular filtration rate ( GFR) estimation/1.73 sq m using serum, plasma, or whole bOrdered By: Kathi Juarez on 10-25-2024 GFR/1.73 sq M.predicted among non-blacks MDRD (S/P/Bld) [Vol rate/Area] 53 mL/min/{1.73_m2} Low >60 [facility] Comment on above: mL/min/1.73m2 CKD-EP I Creatinine Equation (2020) Hematocrit Auto (Bld) [Volum e fraction]Ordered By: Kathi Juarez on 10-25-2024 Hematocrit (Bld) [Volume fraction] 41.2 % 37-47 [facility] Hemoglobin measurementOrdere d By: Kathi Juarez on 10-25-2024 Hemoglobin (Bld) [Mass/Vol] 13.3 g/dL 12.0-15.0 [facility] MCV (mean corpuscular volume ) determinationOrdered By: Kathi Juarez on 10-25-2024 MCV (RBC) [Entitic vol] 100.2 fL High 81-99 [facility] Mean corpuscular hemoglobin (MCH) determinationOrdered By: Kathi Juarez on 10-25-2024 MCH (RBC) [Entitic mass] 32.4 pg High 27.0-32.0 [facility] Mean corpuscular hemoglobin concentration (MCHC) determinationOrdered By: Kathi Juarez on 10-25-2024 MCHC (RBC) [Mass/Vol] 32.3 g/dL 32-36 [facility] Mean platelet volume determi nationOrdered By: Kathi Juarez on 10-25-2024 Platelet mean volume (Bld) [Entitic vol] 8.8 fL 6.2-12.0 [facility] No Panel InformationOrdered By: Kathi Juarez on 10-25-2024 Troponin T High Sensitivity 30 ng/L High <14 [facility] Platelet countOrdered By: Emir Juarez on 10-25-2024 Platelets (Bld) [#/Vol] 336 10*3/uL 150-450 [facility] Potassium measurement (mass/ volume)Ordered By: Kathi Juarez on 10-25-2024 Potassium (Unsp spec) [Mass/Vol] 4.0 mmol/L 3.3-5.1 [facility] RBC Auto (Bld) [#/Vol]Ordere d By: Kathi Juarez on 10-25-2024 RBC (Bld) [#/Vol] 4.11 10*6/uL Low 4.2-5.4 [facility] Serum creatinine measurement (mass/volume)Ordered By: Kathi Juarez on 10-25-2024 Creatinine [Mass/Vol] 1.05 mg/dL 0.70-1.20 [facility] Serum glucose measurement (m ass/volume)Ordered By: Kathi Juarez on 10-25-2024 Glucose [Mass/Vol] 80 mg/dL 70-99 [facility] Serum or plasma calcium adam urement (mass/volume)Ordered By: Kathi Juarez on 10-25-2024 Calcium [Mass/Vol] 9.6 mg/dL 7.6-11.0 [facility] Serum or plasma urea nitroge n measurement (mass/volume)Ordered By: Kathi Juarez on 10-25-2024 Urea nitrogen [Mass/Vol] 19 mg/dL 4-19 [facility] Sodium levelOrdered By: Fuentes Juarez on 10-25-2024 Sodium [Moles/Vol] 137 mmol/L 133-145 [facility] White blood cell (WBC) count Ordered By: Kathi Juarez on 10-25-2024 WBC (Bld) [#/Vol] 8.2 10*3/uL 4.4-11.0 [facility] ED Nursing Noteon 10-24-2024 ED Nursing Note 13/03 Medical Transport here to transport pt back to [facility]. Pt has been very anxious to go back to the facility, no repeat VS obtained. Normal [facility] ED Nursing Note Pt yelling in room, RN and medic to room. Pt stating she is "getting pissed" about being here. Pt states she wants to go home to the SNF and go back to her room. She states she is only here because she forgot something. Reassurance given. Normal [facility] ED Nursing Note Normal [facility] ED Provider Noteon ED Provider Note Normal [facility] Laboratory - Chemistry and C hemistry - challengeon 10-24-2024 Glucose [Mass/Vol] 116 mg/dL High 70 - 100 mg/dL [facility] No Panel Informationon 10-24 Interpretation and review of laboratory results Abnormal [facility] th Performed by: [facility], [address] [place] [address] CLIA ID: [id number] [facility] Anion gap in Serum or Plasma Ordered By: [facility] on 10-23-2024 Anion gap [Moles/Vol] 12 mmol/L 5-15 [facility] BUN/creatinine ratioOrdered By: [facility] on 10-23-2024 Urea nitrogen/Creatinine [Mass ratio] 17.3 mg/mg 10-20 [facility] Bilirubin directOrdered By: [facility] on 10-23-2024 Bilirubin.direct [Mass/Vol] 0.16 mg/dL 0.00-0.30 [facility] Bilirubin, totalOrdered By: [facility] on 10-23-2024 Bilirubin [Mass/Vol] 0.32 mg/dL 0.00-1.30 [facility] Carbon dioxide, total [Moles /volume] in Central venous bloodOrdered By: [facility] on 10-23-2024 CO2 [Moles/Vol] 20.0 mmol/L Low 21.0-32.0 [facility] Chloride assayOrdered By: Juan [facility] on 10-23-2024 Chloride [Moles/Vol] 105 mmol/L 98-108 [facility] Erythrocyte distribution wid th ratioOrdered By: [facility] on 10-23-2024 Erythrocyte distribution width (RBC) [Ratio] 13.8 % 11.6-14.6 [facility] Erythrocyte distribution wid th standard deviationOrdered By: [facility] on 10-23-2024 Erythrocyte distribution width (RBC) [Ratio] 51.0 fl High 35.1-43.9 [facility] Glomerular filtration rate ( GFR) estimation/1.73 sq m using serum, plasma, or whole bOrdered By: [facility] on 10-23-2024 GFR/1.73 sq M.predicted among non-blacks MDRD (S/P/Bld) [Vol rate/Area] 58 mL/min/{1.73_m2} Low >60 [facility] Comment on above: mL/min/1.73m2 CKD-EP I Creatinine Equation (2020) Hematocrit Auto (Bld) [Volum e fraction]Ordered By: [facility] on 10-23-2024 Hematocrit (Bld) [Volume fraction] 37.9 % 37-47 [facility] Hemoglobin measurementOrdere d By: [facility] on 10-23-2024 Hemoglobin (Bld) [Mass/Vol] 12.2 g/dL 12.0-15.0 [facility] Laboratory - Chemistry and C hemistry - challengeOrdered By: [facility] on 10-23-2024 AST [Catalytic activity/Vol] 22 U/L <32 [facility] MCV (mean corpuscular volume ) determinationOrdered By: [facility] on 10-23-2024 MCV (RBC) [Entitic vol] 101.3 fL High 81-99 [facility] Mean corpuscular hemoglobin (MCH) determinationOrdered By: [facility] on 10-23-2024 MCH (RBC) [Entitic mass] 32.6 pg High 27.0-32.0 [facility] Mean corpuscular hemoglobin concentration (MCHC) determinationOrdered By: [facility] on 10-23-2024 MCHC (RBC) [Mass/Vol] 32.2 g/dL 32-36 [facility] Mean platelet volume determi nationOrdered By: [facility] on 10-23-2024 Platelet mean volume (Bld) [Entitic vol] 8.8 fL 6.2-12.0 [facility] Platelet countOrdered By: Juan [facility] on 10-23-2024 Platelets (Bld) [#/Vol] 310 10*3/uL 150-450 [facility] Potassium measurement (mass/ volume)Ordered By: [facility] on 10-23-2024 Potassium (Unsp spec) [Mass/Vol] 4.0 mmol/L 3.3-5.1 [facility] RBC Auto (Bld) [#/Vol]Ordere d By: [facility] on 10-23-2024 RBC (Bld) [#/Vol] 3.74 10*6/uL Low 4.2-5.4 [facility] Serum creatinine measurement (mass/volume)Ordered By: [facility] on 10-23-2024 Creatinine [Mass/Vol] 0.97 mg/dL 0.70-1.20 [facility] Serum globulin measurementOr dered By: [facility] on 10-23-2024 Globulin (S) [Mass/Vol] 3.0 g/dL 2.2-4.2 [facility] Serum glucose measurement (m ass/volume)Ordered By: [facility] on 10-23-2024 Glucose [Mass/Vol] 99 mg/dL 70-99 [facility] Serum or plasma alanine jiang otransferase (ALT) measurementOrdered By: [facility] on 10-23-2024 ALT [Catalytic activity/Vol] 14 U/L <35 [facility] Serum or plasma albumin adam urement (mass/volume)Ordered By: [facility] on 10-23-2024 Albumin [Mass/Vol] 3.6 g/dL 3.4-4.8 [facility] Serum or plasma alkaline herminio sphatase measurementOrdered By: [facility] on 10-23-2024 ALP [Catalytic activity/Vol] 70 U/L 35-104 [facility] Serum or plasma calcium adam urement (mass/volume)Ordered By: [facility] on 10-23-2024 Calcium [Mass/Vol] 9.4 mg/dL 7.6-11.0 [facility] Serum or plasma urea nitroge n measurement (mass/volume)Ordered By: [facility] on 10-23-2024 Urea nitrogen [Mass/Vol] 17 mg/dL 4-19 [facility] Sodium levelOrdered By: [facility] on 10-23-2024 Sodium [Moles/Vol] 137 mmol/L 133-145 [facility] Total proteinOrdered By: [facility] on 10-23-2024 Protein [Mass/Vol] 6.7 g/dL 5.9-8.4 [facility] White blood cell (WBC) count Ordered By: [facility] on 10-23-2024 WBC (Bld) [#/Vol] 5.9 10*3/uL 4.4-11.0 [facility] [id number] 10-19-2024 [id number] Normal [facility] [id number] Normal [facility] BASIC METABOLIC PANELon Anion gap [Moles/Vol] 7 mmol/L Normal 3-13 [facility] Comment on above: Performed By: #### L AB15 ####Shank Burnisher: ROSETTE HZAO ([phone])[facility] ([facility])[address] [place] [address] Calcium [Mass/Vol] 8.6 mg/dL Low 8.8-10.0 [facility] Comment on above: Performed By: #### L AB15 ####Shank Burnisher: ROSETTE ZHAO ([id number])[facility] ([facility])[address] [place] [address] Chloride [Moles/Vol] 109 mmol/L High 98-107 [facility] Comment on above: Performed By: #### L AB15 ####Shank Burnisher: ROSETTE ZHAO ([id number])[facility] ([facility])[address] [place] [address] CO2 [Moles/Vol] 20 mmol/L Low 23-31 [facility] Comment on above: Performed By: #### L AB15 ####Shank Burnisher: ROSETTE ZHAO ([id number])[facility] ([facility])[address] Creatinine [Mass/Vol] 0.78 mg/dL Normal 0.57-1.11 [facility] Comment on above: Performed By: #### L AB15 ####Shank Burnisher: ROSETTE ZHAO ([id number])[facility] ([facility])[address] GLOMERULAR FILTRATION RATE ML/MIN/1.73 SQ M.PREDICTED 75.9 mL/min/1.73m*2 Normal >60.0 [facility] Comment on above: Result Comment: Calc ulation based on the Chronic Kidney Disease Epidemiology Collaboration (CKD-EPI) equation refit without adjustment for race Performed By: #### L AB15 ####Shank Burnisher: ROSETTE ZHAO ([id number])[facility] ([facility])[address] Glucose [Mass/Vol] 111 mg/dL Normal 82-115 [facility] Comment on above: Performed By: #### L AB15 ####Shank Burnisher: ROSETTE ZHAO ([id number])[facility])[address] Potassium [Moles/Vol] 3.6 mmol/L Normal 3.5-5.1 [facility] Comment on above: Result Comment: [facility] potassium values may be up to 0.5 mmol/L lower than serum values. Performed By: #### L AB15 ####Shank Burnisher: ROSETTE ZHAO ([id number])[facility] ([facility])[address] [place] [address] [place] Sodium [Moles/Vol] 136 mmol/L Normal 136-145 [facility] Comment on above: Performed By: #### L AB15 ####Shank Burnisher: ROSETTE ZHAO ([id number])[facility] ([facility])[address] [place] [address] [place] Urea nitrogen [Mass/Vol] 22 mg/dL Normal 9-23 [facility] Comment on above: Performed By: #### L AB15 ####Shank Burnisher: ROSETTE ZHAO ([id number])[facility] ([facility])[address] [place] [address] Bacteria identified Cx Nom ( U)Ordered By: Sven Samuel on 10-19-2024 Interpretation and review of laboratory results Abnormal [facility] Basic metabolic 1998 panelon 10-19-2024 Anion gap [Moles/Vol] 7 mmol/L 3 - 13 mmol/L [facility] Calcium [Mass/Vol] 8.6 mg/dL Low 8.8 - 10. 0 mg/dL [facility] Chloride [Moles/Vol] 109 mmol/L High 98 - 10 7 mmol/L [facility] CO2 [Moles/Vol] 20 mmol/L Low 23 - 31 mmol/L [facility] Creatinine [Mass/Vol] 0.78 mg/dL 0.57 - 1.11 mg/dL [facility] GFR/1.73 sq M.predicted (S/P/Bld) [Vol rate/Area] 75.9 mL/min - PINF [facility] Comment on above: Calculation based on the Chronic Kidney Disease Epidemiology Collaboration (CKD-EPI) equation refit without adjustment for race Glucose [Mass/Vol] 111 mg/dL 82 - 115 mg/dL [facility] Interpretation and review of laboratory results Abnormal [facility] Potassium [Moles/Vol] 3.6 mmol/L 3.5 - 5.1 mmol/L [facility] Comment on above: Plasma potassium morro ues may be up to 0.5 mmol/L lower than serum values. Sodium [Moles/Vol] 136 mmol/L 136 - 145 mmol/L [facility] Urea nitrogen [Mass/Vol] 22 mg/dL 9 - 23 mg/d L [facility] CBC (HEMOGRAM)on 10-19-2024 Erythrocyte distribution width (RBC) [Ratio] 13.3 % Normal 11.5-15.0 [facility] Comment on above: Performed By: #### L [id number] ####Shank Burnisher: ROSETTE ZHAO ([id number])[facility] ([facility])[address] Hematocrit (Bld) [Volume fraction] 36.8 % Normal 35.0-47.0 [facility] Comment on above: Performed By: #### L AB294 ####Shank Burnisher: ROSETTE ZHAO ([id number])[facility] ([facility])[address] Hemoglobin (Bld) [Mass/Vol] 12.0 g/dL Normal 11.7-16.0 [facility] Comment on above: Performed By: #### L [id number] ####Shank Burnisher: ROSETTE ZHAO ([id number])[facility] ([facility])[address] MCH (RBC) [Entitic mass] 32.2 pg Normal 26.0-34.0 [facility] Comment on above: Performed By: #### L [id number] ####Shank Burnisher: ROSETTE ZHAO ([id number])[facility] ([facility])[address] MCHC 32.6 % Normal 30.5-36.0 [facility] Comment on above: Performed By: #### L [id number] ####Shank Burnisher: ROSETTE ZHAO ([id number])[facility] ([facility])[address] [place] [address] MCV (RBC) [Entitic vol] 98.7 fL Normal 77.0-99.0 [facility] Comment on above: Performed By: #### L [id number] ####Shank Burnisher: ROSETTE ZHAO ([id number])[facility] ([facility])[address] Platelet mean volume (Bld) [Entitic vol] 9.2 fL Normal 9.0-12.7 [facility] Comment on above: Performed By: #### L [id number] ####Shank Burnisher: ROSETTE ZHAO ([id number])[facility] ([facility])[address] Platelets (Bld) [#/Vol] 296 10*3/uL Normal 140-440 [facility] Comment on above: Performed By: #### L [id number] ####Shank Burnisher: ROSETTE ZHAO ([id number])[facility] ([facility])[address] RBC (Bld) [#/Vol] 3.73 10*6/uL Low 3.80-5.20 [facility] Comment on above: Performed By: #### L [id number] ####Shank Burnisher: ROSETTE ZHAO ([id number])[facility] ([facility])[address] [place] [address] WBC (Bld) [#/Vol] 5.7 10*3/uL Normal 3.6-10.7 [facility] Comment on above: Performed By: #### L [id number] ####Shank Burnisher: ROSETTE ZHAO ([id number])[facility] ([facility])[address] [place] [address] CBC panel Auto (Bld)Ordered By: Nasim Ag on 10-19-2024 Erythrocyte distribution width (RBC) [Ratio] 13.3 % 11.5 - 15.0 % [facility] Hematocrit (Bld) [Volume fraction] 36.8 % 35.0 - 47.0 % [facility] Hemoglobin (Bld) [Mass/Vol] 12 g/dL 11.7 - 16.0 g/dL [facility] Interpretation and review of laboratory results Abnormal [facility] MCH (RBC) [Entitic mass] 32.2 pg 26. 0 - 34.0 pg [facility] MCHC (RBC) [Mass/Vol] 32.6 % 30.5 - 36.0 % [facility] MCV (RBC) [Entitic vol] 98.7 fL 77.0 - 99.0 fL [facility] Platelet mean volume (Bld) [Entitic vol] 9.2 fL 9.0 - 12.7 fL [facility] Platelets (Bld) [#/Vol] 296 10*3/uL 140 - 440 10*3/uL [facility] RBC (Bld) [#/Vol] 3.73 10*6/uL Low 3.80 - 5.2 0 10*6/uL [facility] WBC (Bld) [#/Vol] 5.7 10*3/uL 3.6 - 10.7 10*3/uL [facility] Laboratory - Microbiology an d Antimicrobial susceptibilityOrdered By: Sven Samuel on 10-19-2024 Bacteria identified Cx Nom (U) >100,000 CFU/mL Proteus mirabilis Abnormal [facility] Nursing Noteon 10-19-2024 [facility] Nursing Note Message left at [facility] for nurse to call back to get report on patient. Will be awaiting return phone call. Noted at that patient nut picker time is 1630 from this facility. Normal [facility] Nursing Note Heart monitor removed per nursing protocol. Cleaned, and returned to tele 21. Normal [facility] Nursing Note Return call from son. He will be in shortly. Patient updated. Normal [facility] Nursing Note Attempt to call patient's son Parris, on behalf of patient. No answer, no message left at this time. Normal [facility] Progress Noteon 10-19-2024 Progress Note Normal [facility] Progress Note Nutrition rescreen completed. Chart reviewed. Patient to be monitored and followed by the diet gastrointestinal technician. Normal [facility] [id number] 10-18-2024 [id number] [facility] BASIC METABOLIC PANELon 09-22 Anion gap [Moles/Vol] 10 mmol/L Normal 3-13 [facility] Comment on above: Performed By: #### L AB103, LAB15 ####Shank Burnisher: ROSETTE ZHAO ([id number])[facility] (SBHLAB)[address] [place] [address] Calcium [Mass/Vol] 8.8 mg/dL Normal 8.8-10.0 [facility] Comment on above: Performed By: #### L AB103, LAB15 ####Shank Burnisher: ROSETTE ZHAO ([phone])[facility] (SBHLAB)[address] Chloride [Moles/Vol] 105 mmol/L Normal 98-107 [facility] Comment on above: Performed By: #### L AB103, LAB15 ####Shank Burnisher: ROSETTE ZHAO ([id number])[facility] (SBHLAB)[address] CO2 [Moles/Vol] 21 mmol/L Low 23-31 [facility] Comment on above: Performed By: #### L AB103, LAB15 ####Shank Burnisher: ROSETTE ZHAO ([phone])[facility] Creatinine [Mass/Vol] 0.99 mg/dL Normal 0.57-1.11 [facility] Comment on above: Performed By: #### L AB103, LAB15 ####Shank Burnisher: ROSETTE ZHAO ([id number])[facility] GLOMERULAR FILTRATION RATE ML/MIN/1.73 SQ M.PREDICTED 57.0 mL/min/1.73m*2 Low >60.0 [facility] Comment on above: Result Comment: Calc ulation based on the Chronic Kidney Disease Epidemiology Collaboration (CKD-EPI) equation refit without adjustment for race Performed By: #### L AB103, LAB15 ####Shank Burnisher: ROSETTE ZHAO ([id number])[facility] (HLAB)[address] Glucose [Mass/Vol] 120 mg/dL High 82-115 [facility] Comment on above: Performed By: #### L AB103, LAB15 ####Shank Burnisher: ROSETTE ZHAO ([id number])[facility] Potassium [Moles/Vol] 4.0 mmol/L Normal 3.5-5.1 [facility] Comment on above: Result Comment: [facility] potassium values may be up to 0.5 mmol/L lower than serum values. Performed By: #### L AB103, LAB15 ####Shank Burnisher: ROSETTE ZHAO ([id number])[facility] [place] ([facility])[address] Sodium [Moles/Vol] 136 mmol/L Normal 136-145 [facility] Comment on above: Performed By: #### L AB103, LAB15 ####Shank Burnisher: ROSETTE ZHAO ([id number])[facility] [place] ([facility])[address] Urea nitrogen [Mass/Vol] 26 mg/dL High 9-23 [facility] Comment on above: Performed By: #### L AB103, LAB15 ####Shank Burnisher: ROSETTE ZHAO ([id number])[facility] [place] ([facility])[address] Anion gap [Moles/Vol] 7 mmol/L Normal 3-13 [facility] Comment on above: Performed By: #### L AB15, [id number] ####Shank Burnisher: ROSETTE ZHAO ([id number])[facility] (SBHLAB)[address] Calcium [Mass/Vol] 5.4 mg/dL Critically low 8.8-10.0 [facility] Comment on above: Performed By: #### L AB15, [id number] ####Shank Burnisher: ROSETTE ZHAO ([id number])[facility] [place] (SB[facility])[address] [place] [address] [place] Chloride [Moles/Vol] 120 mmol/L High 98-107 [facility] Comment on above: Performed By: #### L AB15, [id number] ####Shank Burnisher: ROSETTE ZHAO ([id number])[facility] [place] ([facility])[address] CO2 [Moles/Vol] 14 mmol/L Low 23-31 [facility] Comment on above: Performed By: #### L AB15, [id number] ####Shank Burnisher: ROSETTE ZHAO ([id number])[facility] (SBHLAB)[address] Creatinine [Mass/Vol] 0.61 mg/dL Normal 0.57-1.11 [facility] Comment on above: Performed By: #### L AB15, [id number] ####Shank Burnisher: ROSETTE ZHAO ([id number])[facility] (SBHLAB)[address] GLOMERULAR FILTRATION RATE ML/MIN/1.73 SQ M.PREDICTED 89.4 mL/min/1.73m*2 Normal >60.0 [facility] Comment on above: Result Comment: Calc ulation based on the Chronic Kidney Disease Epidemiology Collaboration (CKD-EPI) equation refit without adjustment for race Performed By: #### L AB15, [id number] ####Shank Burnisher: ROSETTE ZHAO ([id number])[facility] Glucose [Mass/Vol] 79 mg/dL Low 82-115 [facility] Comment on above: Performed By: #### L AB15, [id number] ####Shank Burnisher: ROSETTE ZHAO ([id number])[facility] Potassium [Moles/Vol] 2.6 mmol/L Critically low 3.5-5.1 [facility] Comment on above: Result Comment: [facility] potassium values may be up to 0.5 mmol/L lower than serum values. Performed By: #### L AB15, [id number] ####Shank Burnisher: ROSETTE ZHAO ([id number])[facility] [place] [address] [place] Sodium [Moles/Vol] 141 mmol/L Normal 136-145 [facility] Comment on above: Performed By: #### L AB15, [id number] ####Shank Burnisher: ROSETTE ZHAO ([id number])[facility] (SBHL[facility])[address] Urea nitrogen [Mass/Vol] 18 mg/dL Normal 9-23 [facility] Comment on above: Performed By: #### L AB15, [id number] ####Shank Burnisher: ROSETTE ZHAO ([id number])[facility] (SBHLAB)[address] Basic metabolic 1997 panelOr dered By: Trista Gtz on 10-18-2024 Anion gap [Moles/Vol] 10 mmol/L 3 - 13 mmol/L [facility] Calcium [Mass/Vol] 8.8 mg/dL 8.8 - 10. 0 mg/dL [facility] Chloride [Moles/Vol] 105 mmol/L 98 - 10 7 mmol/L [facility] CO2 [Moles/Vol] 21 mmol/L Low 23 - 31 mmol/L [facility] Creatinine [Mass/Vol] 0.99 mg/dL 0.57 - 1.11 mg/dL [facility] GFR/1.73 sq M.predicted (S/P/Bld) [Vol rate/Area] 57 mL/min Low - PINF [facility] Comment on above: Calculation based on the Chronic Kidney Disease Epidemiology Collaboration (CKD-EPI) equation refit without adjustment for race Glucose [Mass/Vol] 120 mg/dL High 82 - 115 mg/dL [facility] Interpretation and review of laboratory results Abnormal [facility] Potassium [Moles/Vol] 4 mmol/L 3.5 - 5.1 mmol/L [facility] Comment on above: Plasma potassium morro ues may be up to 0.5 mmol/L lower than serum values. Sodium [Moles/Vol] 136 mmol/L 136 - 145 mmol/L [facility] Urea nitrogen [Mass/Vol] 26 mg/dL High 9 - 23 mg/d L [facility] Basic metabolic 1997 panelOr dered By: Nina Love on 10-18-2024 Anion gap [Moles/Vol] 7 mmol/L 3 - 13 mmol/L [facility] Calcium [Mass/Vol] 5.4 mg/dL Critically low 8.8 - 1 0.0 mg/dL [facility] Chloride [Moles/Vol] 120 mmol/L High 98 - 10 7 mmol/L [facility] CO2 [Moles/Vol] 14 mmol/L Low 23 - 31 mmol/L [facility] Creatinine [Mass/Vol] 0.61 mg/dL 0.57 - 1.11 mg/dL [facility] GFR/1.73 sq M.predicted (S/P/Bld) [Vol rate/Area] 89.4 mL/min - PINF [facility] Comment on above: Calculation based on the Chronic Kidney Disease Epidemiology Collaboration (CKD-EPI) equation refit without adjustment for race Glucose [Mass/Vol] 79 mg/dL Low 82 - 115 mg/dL [facility] Interpretation and review of laboratory results Abnormal [facility] th Potassium [Moles/Vol] 2.6 mmol/L Critically low 3.5 - 5.1 mmol/L [facility] Comment on above: Plasma potassium morro ues may be up to 0.5 mmol/L lower than serum values. Sodium [Moles/Vol] 141 mmol/L 136 - 145 mmol/L [facility] Urea nitrogen [Mass/Vol] 18 mg/dL 9 - 23 mg/d L [facility] CBC (HEMOGRAM)on 10-18-2024 Erythrocyte distribution width (RBC) [Ratio] 13.3 % Normal 11.5-15.0 [facility] Comment on above: Performed By: #### L [id number] ####Shank Burnisher: ROSETTE ZHAO ([id number])[facility] ([facility])[address] [place] [address] Hematocrit (Bld) [Volume fraction] 27.7 % Low 35.0-47.0 [facility] Comment on above: Performed By: #### L AB294 ####Shank Burnisher: ROSETTE ZHAO ([id number])[facility] ([facility])[address] [place] [address] Hemoglobin (Bld) [Mass/Vol] 8.9 g/dL Low 11.7-16.0 [facility] Comment on above: Performed By: #### L AB294 ####Shank Burnisher: ROSETTE ZHAO ([id number])[facility] (SBHLAB)[address] MCH (RBC) [Entitic mass] 32.4 pg Normal 26.0-34.0 [facility] Comment on above: Performed By: #### L AB294 ####Shank Burnisher: ROSETTE ZHAO ([id number])[facility] (SBHLAB)[address] MCHC 32.1 % Normal 30.5-36.0 [facility] Comment on above: Performed By: #### L AB294 ####Shank Burnisher: ROSETTE ZHAO ([id number])[facility] (SBHLAB)[address] MCV (RBC) [Entitic vol] 100.7 fL High 77.0-99.0 S [facility] Comment on above: Performed By: #### L AB294 ####Shank Burnisher: ROSETTE ZHAO ([id number])[facility] [place] (SBHLAB)[address] Platelet mean volume (Bld) [Entitic vol] 8.9 fL Low 9.0-12.7 [facility] Comment on above: Performed By: #### L AB294 ####Shank Burnisher: ROSETTE ZHAO ([id number])[facility] [place] (SBHLAB)[address] Platelets (Bld) [#/Vol] 215 10*3/uL Normal 140-440 [facility] Comment on above: Performed By: #### L AB294 ####Shank Burnisher: ROSETTE ZHAO ([id number])[facility] [place] ([facility])[address] RBC (Bld) [#/Vol] 2.75 10*6/uL Low 3.80-5.20 [facility] Comment on above: Performed By: #### L AB294 ####Shank Burnisher: ROSETTE ZHAO ([id number])[facility] (SBHLAB)[address] WBC (Bld) [#/Vol] 5.1 10*3/uL Normal 3.6-10.7 [facility] Comment on above: Performed By: #### L AB294 ####Shank Burnisher: ROSETTE ZHAO ([id number])[facility] (SBHLAB)[address] CBC panel Auto (Bld)Ordered By: Babar Vang on 10-18-2024 Erythrocyte distribution width (RBC) [Ratio] 13.3 % 11.5 - 15.0 % [facility] Hematocrit (Bld) [Volume fraction] 27.7 % Low 35.0 - 47.0 % [facility] Hemoglobin (Bld) [Mass/Vol] 8.9 g/dL Low 11.7 - 16.0 g/dL [facility] Interpretation and review of laboratory results Abnormal [facility] MCH (RBC) [Entitic mass] 32.4 pg 26. 0 - 34.0 pg [facility] MCHC (RBC) [Mass/Vol] 32.1 % 30.5 - 36.0 % [facility] MCV (RBC) [Entitic vol] 100.7 fL High 77.0 - 99.0 fL [facility] Platelet mean volume (Bld) [Entitic vol] 8.9 fL Low 9.0 - 12.7 fL [facility] Platelets (Bld) [#/Vol] 215 10*3/uL 140 - 440 10*3/uL [facility] RBC (Bld) [#/Vol] 2.75 10*6/uL Low 3.80 - 5.2 0 10*6/uL [facility] WBC (Bld) [#/Vol] 5.1 10*3/uL 3.6 - 10.7 10*3/uL [facility] Laboratory - Chemistry and C hemistry - challengeon 10-18-2024 Magnesium [Mass/Vol] 1.9 mg/dL 1.6 - 2 .6 mg/dL [facility] Magnesium [Mass/Vol] 1.2 mg/dL Low 1.6 - 2 .6 mg/dL [facility] MAGNESIUMon 10-18-2024 Magnesium [Mass/Vol] 1.9 mg/dL Normal 1.6-2.6 [facility] Comment on above: Result Comment: ORDE R COMMENTS:Higher values can be expected in females during menses. Performed By: #### L AB103, LAB15 ####Shank Burnisher: ROSETTE ZHAO ([id number])[facility] (SBHLAB)[address] Magnesium [Mass/Vol] 1.2 mg/dL Low 1.6-2.6 [facility] Comment on above: Result Comment: ORDE R COMMENTS:Higher values can be expected in females during menses. Performed By: #### L AB15, [id number] ####Shank Burnisher: ROSETTE ZHAO ([id number])[facility] DANIKACHRISTUS [facility]YSICIANS MEDICAL CENTERKeren (SBHLAB)[address] Magnesium [Mass/Vol]on 10-18 Interpretation and review of laboratory results Normal [facility] th Higher values can be expected in females during menses. [facility] Interpretation and review of laboratory results Abnormal [facility] Higher values can be expected in females during menses. [facility] Progress Noteon 10-18-2024 Progress Note Normal [facility] US Heart TransthoracicOrdere d By: Casey Eller on 10-18-2024 Aortic Sinus Valsalva 3.7 cm [facility] [employer] Work Phone: [phone] Aortic Sinus Valsalva Index 2.26 cm/m2 [facility] [employer] Phone: Aortic valve Mean systole pressure gradient by US.doppler derived full Bernoulli 1 mmHg [facility] [employer] Work Phone: Aortic valve Orifice area by US 3.1 cm2 [facility] [employer] Phone: Aortic valve Peak systolic flow by US.doppler 0.6 m/s [facility] [employer] Phone: AR Max Velocity PISA 3.6 m/s [facility] [employer] Work Phone: AR PHT 660.9 ms [facility] [employer] Work Phone: Ascending Aorta 3.3 cm [facility] Work Phone: Ascending Aorta Index 2.01 cm/m2 [facility] Work Phone: AV Area by Peak Velocity 2.4 cm2 [facility] Work Phone: AV Area by VTI 2.2 cm2 [facility] Work Phone: AV Peak Gradient 3 mmHg [facility] Work Phone: AV Peak Velocity 0.8 m/s [facility] Work Phone: AV Velocity Ratio 0.75 [facility] Work Phone: AV VTI 15.5 cm [facility] Work Phone: MISA/BSA Peak Velocity 1.5 cm2/m2 [facility] Work Phone: MISA/BSA VTI 1.3 cm2/m2 [facility] Work Phone: Est. RA Pressure 15 mmHg [facility] Work Phone: Fractional Shortening 2D 32 % 28 - 44 % [facility] Work Phone: Interpretation and review of laboratory results Abnormal [facility] Work Phone: IVC Diameter 2.5 cm [facility] Work Phone: IVSd 1.2 cm Abnormal 0.6 - 0.9 cm [facility] Work Phone: LA Diameter 4.5 cm [facility] Work Phone: LA Size Index 2.74 cm/m2 [facility] Work Phone: LA Volume 2C 75 mL Abnormal 22 - 52 mL [facility] Work Phone: LA Volume 4C 67 mL Abnormal 22 - 52 mL [facility] Work Phone: LA Volume A/L 77 mL [facility] Work Phone: LA Volume BP 73 mL Abnormal 22 - 52 mL [facility] Work Phone: LA Volume Index 2C 46 mL/m2 Abnormal 16 - 34 mL/m2 [facility] Work Phone: LA Volume Index 4C 41 mL/m2 Abnormal 16 - 34 mL/m2 [facility] Work Phone: LA Volume Index A/L 47 mL/m2 16 - 34 mL/m2 [facility] Work Phone: LA Volume Index BP 45 ml/m2 Abnormal 16 - 34 ml/m2 [facility] Work Phone: Left ventricular Ejection fraction by US.2D+Calculated by biplane method of disks 62 % 55 - 100 % [facility] Work Phone: LV EDV A2C 36 mL [facility] Work Phone: LV EDV A4C 34 mL [facility] Work Phone: LV EDV BP 36 mL Abnormal 56 - 104 mL [facility] Work Phone: LV EDV Index A2C 22 mL/m2 [facility] Work Phone: LV EDV Index A4C 21 mL/m2 [facility] Work Phone: LV EDV Index BP 22 mL/m2 [facility] Work Phone: LV Ejection Fraction A2C 65 % [facility] Work Phone: LV Ejection Fraction A4C 58 % [facility] Work Phone: LV ESV A2C 13 mL [facility] Work Phone: LV ESV A4C 14 mL [facility] Work Phone: LV ESV BP 14 mL Abnormal 19 - 49 mL [facility] Work Phone: LV ESV Index A2C 8 mL/m2 [facility] Work Phone: LV ESV Index A4C 9 mL/m2 [facility] Work Phone: LV ESV Index BP 9 mL/m2 [facility] Work Phone: LV Mass 2D 212 g Abnormal 67 - 162 g [facility] Work Phone: LV Mass 2D Index 129.3 g/m2 Abnormal 43 - 95 g/m2 [facility] Work Phone: LV RWT Ratio 0.51 [facility] Work Phone: LVIDd 4.7 cm 3.9 - 5.3 cm [facility] Work Phone: LVIDd Index 2.87 cm/m2 [facility] Work Phone: LVIDs 3.2 cm [facility] Work Phone: LVIDs Index 1.95 cm/m2 [facility] Work Phone: LVOT Cardiac Output 3 liter/minute [facility] Work Phone: LVOT Diameter 2 cm [facility] Work Phone: LVOT Mean Gradient 1 mmHg [facility] Work Phone: LVOT Peak Gradient 2 mmHg [facility] Work Phone: LVOT Peak Velocity 0.6 m/s [facility] Work Phone: LVOT Stroke Volume Index 20.7 mL/m2 [facility] Work Phone: LVOT SV 33.9 ml [facility] Work Phone: LVOT VTI 10.8 cm [facility] Work Phone: LVOT:AV VTI Index 0.7 [facility] Work Phone: LVPWd 1.2 cm Abnormal 0.6 - 0.9 cm [facility] Work Phone: RA Area 4C 94.8 mL [facility] Work Phone: RA Area 4C 90 mL [facility] Work Phone: RV Basal Dimension 4.4 cm [facility] Work Phone: RV Mid Dimension 3.2 cm [facility] Work Phone: RVSP 47 mmHg [facility] Work Phone: Sinotubular Junction 3.1 cm [facility] Work Phone: TR Max Velocity 2.81 m/s [facility] Work Phone: TR Peak Gradient 32 mmHg [facility] Work Phone: TR Peak Velocity PISA 2.1 m/s [facility] Work Phone: TR VTI 65.3 cm [facility] Work Phone: TV EROA 0.2 cm2 [facility] Work Phone: [phone] TV Nyquist Velocity 36 cm/s [facility] Work Phone: [facility] [employer] Work Phone: Heart Transthoracicon Left Ventricle: Left [...] Breast Implants CV CPACS BASIC METABOLIC PANELon 02-2 Anion gap [Moles/Vol] 9 mmol/L Normal 3-13 [facility] Comment on above: Performed By: #### Albert [id number], LAB20, LAB99, LAB15 ####Shank Burnisher: ROSETTE ZHAO ([id number])[facility] ([facility])[address] [place] [address] Calcium [Mass/Vol] 9.2 mg/dL Normal 8.8-10.0 [facility] Comment on above: Performed By: #### L [id number], LAB20, LAB99, LAB15 ####Shank Burnisher: ROSETTE ZHAO ([id number])[facility] [place] [address] Chloride [Moles/Vol] 109 mmol/L High 98-107 [facility] Comment on above: Performed By: #### L [id number], LAB20, LAB99, LAB15 ####Shank Burnisher: ROSETTE ZHAO ([id number])[facility] [place] [address] CO2 [Moles/Vol] 19 mmol/L Low 23-31 [facility] Comment on above: Performed By: #### L [id number], LAB20, LAB99, LAB15 ####Shank Burnisher: ROSETTE ZHAO ([id number])[facility] ([facility])[address] Creatinine [Mass/Vol] 0.87 mg/dL Normal 0.57-1.11 [facility] Comment on above: Performed By: #### L [id number], LAB20, LAB99, LAB15 ####Shank Burnisher: ROSETTE ZHAO ([id number])[facility] ([facility])[address] [place] [address] [place] GLOMERULAR FILTRATION RATE ML/MIN/1.73 SQ M.PREDICTED 66.6 mL/min/1.73m*2 Normal >60.0 [facility] Comment on above: Result Comment: Calc ulation based on the Chronic Kidney Disease Epidemiology Collaboration (CKD-EPI) equation refit without adjustment for race Performed By: #### L [id number], LAB20, LAB99, LAB15 ####Shank Burnisher: ROSETTE ZHAO ([id number])[facility] ([facility])[address] Glucose [Mass/Vol] 114 mg/dL Normal 82-115 [facility] Comment on above: Performed By: #### L [id number], LAB20, LAB99, LAB15 ####Shank Burnisher: ROSETTE ZHAO ([id number])[facility] ([facility])[address] Potassium [Moles/Vol] 4.2 mmol/L Normal 3.5-5.1 [facility] Comment on above: Result Comment: [facility] potassium values may be up to 0.5 mmol/L lower than serum values. Performed By: #### L [id number], LAB20, LAB99, LAB15 ####Shank Burnisher: ROSETTE ZHAO ([id number])[facility] ([facility])[address] [place] [address] [place] Sodium [Moles/Vol] 137 mmol/L Normal 136-145 [facility] Comment on above: Performed By: #### L [id number], LAB20, LAB99, LAB15 ####Shank Burnisher: ROSETTE ZHAO ([id number])[facility] ([facility])[address] [place] [address] [place] Urea nitrogen [Mass/Vol] 17 mg/dL Normal 9-23 [facility] Comment on above: Performed By: #### L [id number], LAB20, LAB99, LAB15 ####Shank Burnisher: ROSETTE ZHAO ([id number])[facility] ([facility])[address] Basic metabolic 1998 panelon 10-17-2024 Anion gap [Moles/Vol] 9 mmol/L 3 - 13 mmol/L [facility] Calcium [Mass/Vol] 9.2 mg/dL 8.8 - 10. 0 mg/dL [facility] Chloride [Moles/Vol] 109 mmol/L High 98 - 10 7 mmol/L [facility] CO2 [Moles/Vol] 19 mmol/L Low 23 - 31 mmol/L [facility] Creatinine [Mass/Vol] 0.87 mg/dL 0.57 - 1.11 mg/dL [facility] GFR/1.73 sq M.predicted (S/P/Bld) [Vol rate/Area] 66.6 mL/min - PINF [facility] Comment on above: Calculation based on the Chronic Kidney Disease Epidemiology Collaboration (CKD-EPI) equation refit without adjustment for race Glucose [Mass/Vol] 114 mg/dL 82 - 115 mg/dL [facility] Potassium [Moles/Vol] 4.2 mmol/L 3.5 - 5.1 mmol/L [facility] Comment on above: Plasma potassium morro ues may be up to 0.5 mmol/L lower than serum values. Sodium [Moles/Vol] 137 mmol/L 136 - 145 mmol/L [facility] [employer] Urea nitrogen [Mass/Vol] 17 mg/dL 9 - 23 mg/d L [facility] CBC W Auto Differential pane l (Bld)on 10-17-2024 Basophils (Bld) [#/Vol] 0.1 10*3/uL 0.0 - 0.2 10*3/uL [facility] Basophils/100 WBC (Bld) 0.7 % 0.0 - 2.0 % [facility] Eosinophils (Bld) [#/Vol] 0.1 10*3/uL 0. 0 - 0.5 10*3/uL [facility] Eosinophils/100 WBC (Bld) 1.6 % 0.0 - 6.0 % [facility] Erythrocyte distribution width (RBC) [Ratio] 13.2 % 11.5 - 15.0 % [facility] Hematocrit (Bld) [Volume fraction] 37.1 % 35.0 - 47.0 % [facility] Hemoglobin (Bld) [Mass/Vol] 12.4 g/dL 11.7 - 16.0 g/dL [facility] Immature granulocytes (Bld) [#/Vol] 0 10*3/uL NINF - 0.1 10*3/uL [facility] Immature granulocytes/100 WBC (Bld) 0.3 % 0.0 - 2.0 % [facility] Interpretation and review of laboratory results Abnormal [facility] th Lymphocytes (Bld) [#/Vol] 1.7 10*3/uL 1. 0 - 4.3 10*3/uL [facility] Lymphocytes/100 WBC (Bld) 24.7 % 15 .0 - 45.0 % [facility] MCH (RBC) [Entitic mass] 32.8 pg 26. 0 - 34.0 pg [facility] MCHC (RBC) [Mass/Vol] 33.4 % 30.5 - 36.0 % [facility] MCV (RBC) [Entitic vol] 98.1 fL 77.0 - 99.0 fL [facility] Monocytes (Bld) [#/Vol] 0.7 10*3/uL 0.0 - 0.9 10*3/uL [facility] Monocytes/100 WBC (Bld) 10.5 % 5.0 - 13.0 % [facility] Neutrophils (Bld) [#/Vol] 4.2 10*3/uL 1. 8 - 7.5 10*3/uL [facility] Neutrophils/100 WBC (Bld) 62.2 % 38 .0 - 82.0 % [facility] Nucleated RBC/100 WBC (Bld) [Ratio] 0 % [facility] Platelet mean volume (Bld) [Entitic vol] 8.9 fL Low 9.0 - 12.7 fL [facility] Platelets (Bld) [#/Vol] 303 10*3/uL 140 - 440 10*3/uL [facility] RBC (Bld) [#/Vol] 3.78 10*6/uL Low 3.80 - 5.2 0 10*6/uL [facility] WBC (Bld) [#/Vol] 6.8 10*3/uL 3.6 - 10.7 10*3/uL [facility] CBC WITH AUTO DIFFERENTIALon 10-17-2024 Basophils (Bld) [#/Vol] 0.1 10*3/uL Normal 0.0-0.2 [facility] Comment on above: Performed By: #### L [id number] ####Shank Burnisher: ROSETTE MONTALVOVIK ([phone])[facility] (SBHLAB)[address] Basophils/100 WBC (Bld) 0.7 % Normal 0.0-2.0 [facility] Comment on above: Performed By: #### L [id number] ####Shank Burnisher: ROSETTE MONTALVOVIK ([id number])[facility] (SBHLAB)[address] Eosinophils (Bld) [#/Vol] 0.1 10*3/uL Normal 0.0-0.5 [facility] Comment on above: Performed By: #### L [id number] ####Shank Burnisher: ROSETTE ZHAO ([id number])[facility] (SBHLAB)[address] Eosinophils/100 WBC (Bld) 1.6 % Normal 0.0-6.0 [facility] Comment on above: Performed By: #### L [id number] ####Shank Burnisher: ROSETTE MONTALVOVIK ([id number])[facility] (SBHLAB)[address] Erythrocyte distribution width (RBC) [Ratio] 13.2 % Normal 11.5-15.0 [facility] Comment on above: Performed By: #### L [id number] ####Shank Burnisher: ROSETTE ZHAO ([phone])[facility] (SBHLAB)[address] Hematocrit (Bld) [Volume fraction] 37.1 % Normal 35.0-47.0 [facility] Comment on above: Performed By: #### L [id number] ####Shank Burnisher: ROSETTE ZHAO ([phone])[facility] ([facility])[address] Hemoglobin (Bld) [Mass/Vol] 12.4 g/dL Normal 11.7-16.0 [facility] Comment on above: Performed By: #### L [id number] ####Shank Burnisher: ROSETTE ZHAO ([phone])[facility] ([facility])[address] IMMATURE GRANS % 0.3 % Normal 0.0-2.0 [facility] Comment on above: Performed By: #### L [id number] ####Shank Burnisher: ROSETTE ZHAO ([phone])[facility] ([facility])[address] IMMATURE GRANS ABSOLUTE 0.0 10*3/uL Normal <0.1 [facility] Comment on above: Performed By: #### L [id number] ####Shank Burnisher: ROSETTE ZHAO ([phone])[facility] Lymphocytes (Bld) [#/Vol] 1.7 10*3/uL Normal 1.0-4.3 [facility] Comment on above: Performed By: #### L [id number] ####Shank Burnisher: ROSETTE ZHAO ([phone])[facility] ([facility])[address] Lymphocytes/100 WBC (Bld) 24.7 % Normal 15.0-45.0 [facility] Comment on above: Performed By: #### L [id number] ####Shank Burnisher: ROSETTE ZHAO ([phone])[facility] (SB[facility])[address] MCH (RBC) [Entitic mass] 32.8 pg Normal 26.0-34.0 [facility] Comment on above: Performed By: #### L [id number] ####Shank Burnisher: ROSETTE ZHAO ([phone])[facility] (SBAB)[address] MCHC 33.4 % Normal 30.5-36.0 [facility] Comment on above: Performed By: #### L [id number] ####Shank Burnisher: ROSETTE ZHAO ([id number])[facility] (SBHLAB)[address] MCV (RBC) [Entitic vol] 98.1 fL Normal 77.0-99.0 [facility] Comment on above: Performed By: #### L [id number] ####Shank Burnisher: ROSETTE ZHAO ([phone])[facility] (SB[facility]AB)[address] Monocytes (Bld) [#/Vol] 0.7 10*3/uL Normal 0.0-0.9 [facility] Comment on above: Performed By: #### L [id number] ####Shank Burnisher: ROSETTE ZHAO ([phone])[facility] (SB[facility])[address] Monocytes/100 WBC (Bld) 10.5 % Normal 5.0-13.0 [facility] Comment on above: Performed By: #### L [id number] ####Shank Burnisher: ROSETTE ZHAO ([id number])[facility] (SBHLAB)[address] [place] [address] NEUTROPHILS ABSOLUTE 4.2 10*3/uL Normal 1.8-7.5 [facility] Comment on above: Performed By: #### L [id number] ####Shank Burnisher: ROSETTE ZHAO ([phone])[facility] (SBHLAB)[address] Neutrophils/100 WBC (Bld) 62.2 % Normal 38.0-82.0 [facility] Comment on above: Performed By: #### L [id number] ####Shank Burnisher: ROSETTE ZHAO ([phone])[facility] ([facility])[address] NRBC 0.0 /100 WBCs Normal 0.0-2.0 [facility] Comment on above: Performed By: #### L [id number] ####Shank Burnisher: ROSETTE ZHAO ([phone])[facility] ([facility])[address] Platelet mean volume (Bld) [Entitic vol] 8.9 fL Low 9.0-12.7 [facility] Comment on above: Performed By: #### L [id number] ####Shank Burnisher: ROSETTE ZHAO ([id number])[facility] ([facility])[address] Platelets (Bld) [#/Vol] 303 10*3/uL Normal 140-440 [facility] Comment on above: Performed By: #### L [id number] ####Shank Burnisher: ROSETTE ZHAO ([phone])[facility] ([facility])[address] RBC (Bld) [#/Vol] 3.78 10*6/uL Low 3.80-5.20 [facility] Comment on above: Performed By: #### L [id number] ####Shank Burnisher: ROSETTE ZHAO ([phone])[facility] ([facility])[address] WBC (Bld) [#/Vol] 6.8 10*3/uL Normal 3.6-10.7 [facility] Comment on above: Performed By: #### L [id number] ####Shank Burnisher: ROSETTE ZHAO ([phone])[facility] ([facility])[address] COMPLETE URINALYSISon 2024 BACTERIA (#/HPF) IN URINE Many Abnormal Negative [facility] Comment on above: Performed By: #### L [id number] ####Shank Burnisher: ROSETTE ZHAO ([phone])[facility] ([facility])[address] [place] [address]#### [id number] ####Shank Burnisher: SHEEBA MUSTAFA ([phone])[facility] ([facility])[address] [place] [address] BILIRUBIN, TOTAL PRESENCE IN URINE Negative Normal Negative [facility] Comment on above: Performed By: #### L [id number] ####Shank Burnisher: ROSETTE ZHAO ([phone])[facility] (SBHLAB)[address] [place] [address]#### [id number] ####Shank Burnisher: SHEEBA MUSTAFA ([phone])[facility] ([facility])[address] [place] [address] Clarity (U) Extra Turbid Abnormal Clear [facility] Comment on above: Performed By: #### L [id number] ####Shank Burnisher: ROSETTE ZHAO ([phone])[facility] (SBHLAB)[address] [place] [address]#### [id number] ####Shank Burnisher: SHEEBA MUSTAFA ([phone])[facility] ([facility])[address] [place] [address] Color (U) Yellow Normal Lt. Yellow [facility] Comment on above: Performed By: #### L [id number] ####Shank Burnisher: ROSETTE ZHAO ([phone])[facility] (SB[facility])[address] [place] [address]#### [id number] ####Shank Burnisher: SHEEBA MUSTAFA ([phone])[facility] ([facility])[address] [place] [address] GLUCOSE (MG/DL) IN URINE Normal Normal Normal (<70 ) [facility] Comment on above: Performed By: #### L [id number] ####Shank Burnisher: ROSETTE ZHAO ([id number])[facility] (SBHL[facility])[address] [place] [address]#### [id number] ####Shank Burnisher: SHEEBA MUSTAFA ([phone])[facility] ([facility])[address] [place] [address] HEMOGLOBIN PRESENCE IN URINE 0.03 mg/dL Abnormal Negative [facility] Comment on above: Performed By: #### L [id number] ####Shank Burnisher: ROSETTE ZHAO ([id number])[facility] (SBHLAB)[address] [place] [address]#### [id number] ####Shank Burnisher: SHEEBA MUSTAFA ([phone])[facility] ([facility])[address] [place] [address] Ketones Ql (U) Negative Normal Negative [facility] Comment on above: Performed By: #### L [id number] ####Shank Burnisher: ROSETTE ZHAO ([phone])[facility] ([facility])[address] [place] [address]#### [id number] ####Shank Burnisher: SHEEBA MUSTAFA ([phone])[facility] ([facility])[address] [place] [address] LEUKOCYTE ESTERASE PRESENCE IN URINE BY TEST STRIP 75 Cathy/uL Abnormal Negative [facility] Comment on above: Performed By: #### L [id number] ####Shank Burnisher: ROSETTE ZHAO ([id number])[facility] ([facility])[address] [place] [address]#### [id number] ####Shank Burnisher: SHEEBA MUSTAFA ([phone])[facility] ([facility])[address] [place] [address] NITRITE PRESENCE IN URINE Negative Normal Negative [facility] Comment on above: Performed By: #### L [id number] ####Shank Burnisher: ROSETTE ZHAO ([phone])[facility] ([facility])[address] [place] [address]#### [id number] ####Shank Burnisher: SHEEBA MUSTAFA ([phone])[facility] ([facility])[address] [place] [address] pH (U) 8.0 [pH] Normal 5.0-8.0 [facility] Comment on above: Performed By: #### L [id number] ####Shank Burnisher: ROSETTE ZHAO ([phone])[facility]Ke[facility] (SBHLAB)[address] [place] [address]#### [id number] ####Shank Burnisher: SHEEBA MUSTAFA ([phone])[facility] ([facility])[address] [place] [address] Protein (U) [Mass/Vol] 30 mg/dL Abnormal Negative [facility] Comment on above: Performed By: #### L [id number] ####Shank Burnisher: ROSETTE ZHAO ([phone])[facility]ALTH[facility] MCKEONARACELI (SBHLAB)[address] [place] [address]#### [id number] ####Shank Burnisher: SHEEBA MUSTAFA ([phone])[facility] ([facility])[address] [place] [address] RBC (#/HPF) IN URINE SEDIMENT 3-5 Abnormal 0-2 [facility] Comment on above: Performed By: #### L [id number] ####Shank Burnisher: ROSETTE ZHAO ([phone])[facility] S[facility]ALKe[facility] (SBHLAB)[address] [place] [address]#### [id number] ####Shank Burnisher: SHEEBA MUSTAFA ([phone])[facility] ([facility])[address] [place] [address] Specific gravity (U) [Rel density] 1.014 Normal 1.005-1.030 [facility] Comment on above: Performed By: #### L [id number] ####Shank Burnisher: ROSETTE ZHAO ([phone])[facility] (SBHLAB)[address] [place] [address]#### [id number] ####Shank Burnisher: SHEEBA MUSTAFA ([phone])[facility] ([facility])[address] [place] [address] SQUAMOUS EPITHELIAL CELLS (#/HPF) IN URINE SEDIMENT 0-2 Normal 3-5 [facility] Comment on above: Performed By: #### L [id number] ####Shank Burnisher: ROSETTE ZHAO ([phone])[facility] (SBHLAB)[address]#### [id number] ####Shank Burnisher: SHEEBA MUSTAFA ([phone])[facility] ([facility])[address] [place] [address] TRIPLE PHOSPHATE CRYSTALS (#/HPF) IN URINE Moderate Abnormal Negative [facility] Comment on above: Performed By: #### L [id number] ####Shank Burnisher: ROSETTE ZHAO ([phone])[facility] (SBHLAB)[address] [place] [address] [place]#### [id number] ####Shank Burnisher: SHEEBA MUSTAFA ([phone])[facility] ([facility])[address] [place] [address] UROBILINOGEN (MG/DL) IN URINE Normal Normal Normal (0-1) [facility] Comment on above: Performed By: #### L [id number] ####Shank Burnisher: ROSETTE ZHAO ([phone])[facility] ([facility])[address] [place] [address]#### [id number] ####Shank Burnisher: SHEEBA MUSTAFA ([phone])[facility] ([facility])[address] [place] [address] WBC (LEUKOCYTE) (#/HPF) IN URINE SEDIMENT 11-25 Abnormal 0-5 [facility] Comment on above: Performed By: #### L [id number] ####Shank Burnisher: ROSETTE ZHAO ([phone])[facility] (SB[facility])[address] [place] [address] [place]#### [id number] ####Shank Burnisher: SHEEBA MUSTAFA ([phone])[facility] ([facility])[address] [place] [address] COVID-19, Flu A/B, and RSV C omboon 10-17-2024 Interpretation and review of laboratory results [facility] Normal [facility] D-DIMER,QUANTITATIVEon 10-17 D-DIMER, INNOVANCE 0.55 mg/L High <0.50 [facility] Comment on above: Result Comment: HUSSAIN Bhatt COMMENTS:[employer] D-Dimer values of <0.50 mg/L FEU can be used in combination with a pre-test probability model (e.g. Well's) to exclude pulmonary embolism (PE) disease, as well as an aid in the diagnosis of deep vein thrombosis (DVT). Performed By: #### L [id number] ####Shank Burnisher: ROSETTE ZHAO ([phone])[facility] ([facility])[address] [place] [address] ECG 12-LEADon 10-17-2024 ECG 12-LEAD IMPRESSION: Atrial fibrillation Anterior infarct, old Nonspecific T abnormalities, lateral leads Minimal ST elevation, lateral leads Electronically Signed On 10-17-2024 11:13:09 EST by Ag Meng Normal [facility] ED Nursing Noteon 10-17-2024 ED Nursing Note Normal [facility] ED Provider Noteon ED Provider Note Normal [facility] Fibrin D-dimer FEU (PPP) [Ma ss/Vol]on 10-17-2024 Interpretation and review of laboratory results Abnormal [facility] D-Dimer values of <0.50 mg/L FEU can be used in combination with a pre-test probability model (e.g. Well's) to exclude pulmonary embolism (PE) disease, as well as an aid in the diagnosis of deep vein thrombosis (DVT). [facility] HEPATIC FUNCTION PANELon Albumin [Mass/Vol] 3.3 g/dL Low 3.4-4.8 [facility] Comment on above: Performed By: #### L [id number], LAB20, LAB99, LAB15 ####Shank Burnisher: ROSETTE ZHAO ([phone])[facility] ([facility])[address] [place] [address] ALP [Catalytic activity/Vol] 70 U/L Normal 40-150 [facility] Comment on above: Performed By: #### L [id number], LAB20, LAB99, LAB15 ####Shank Burnisher: ROSETTE ZHAO ([phone])[facility] ([facility])[address] ALT [Catalytic activity/Vol] 14 U/L Normal <30 [facility] Comment on above: Performed By: #### L [id number], LAB20, LAB99, LAB15 ####Shank Burnisher: ROSETTE ZHAO ([phone])[facility] ([facility])[address] AST [Catalytic activity/Vol] 30 U/L Normal <34 [facility] Comment on above: Performed By: #### L [id number], LAB20, LAB99, LAB15 ####Shank Burnisher: ROSETTE ZHAO ([phone])[facility] ([facility])[address] Bilirubin [Mass/Vol] 1.0 mg/dL Normal <1.2 [facility] Comment on above: Performed By: #### L [id number], LAB20, LAB99, LAB15 ####Shank Burnisher: ROSETTE ZHAO ([phone])[facility] (HLAB)[address] Bilirubin.indirect [Mass/Vol] 0.4 mg/dL Normal <0.5 [facility] Comment on above: Performed By: #### L [id number], LAB20, LAB99, LAB15 ####Shank Burnisher: ROSETTE ZHAO ([phone])[facility] ([facility])[address] Protein [Mass/Vol] 6.6 g/dL Normal 6.4-8.3 [facility] Comment on above: Result Comment: Seru m protein values are higher than plasma values. Samples from recumbent persons are lower by up to 0.5 g/dL as compared to ambulatory persons. After 60 years values are lower by up to 0.2 g/dL. Performed By: #### L [id number], LAB20, LAB99, LAB15 ####Shank Burnisher: ROSETTE ZHAO ([phone])[facility] ([facility])[address] [place] [address] HIGH SENSITIVITY TROPONIN, S ERIAL BASELINEon 10-17-2024 TROPONIN HS SERIAL BASELINE 76 ng/L High <=14 [facility] Comment on above: Result Comment: In i ndividuals presenting with symptoms > 2h, a baseline troponin <= 5 ng/L suggests acutecardiac injury is unlikely and further serial testing is generally not indicated. Performed By: #### L [id number] ####Shank Burnisher: ROSETTE ZHAO ([phone])[facility] ([facility])[address] [place] [address] TROPONIN HS SERIAL BASELINE 82 ng/L High <=14 [facility] Comment on above: Result Comment: In i ndividuals presenting with symptoms > 2h, a baseline troponin <= 5 ng/L suggests acutecardiac injury is unlikely and further serial testing is generally not indicated. Performed By: #### L [id number], LAB20, LAB99, LAB15 ####Shank Burnisher: ROSETTE ZHAO ([phone])[facility] ([facility])[address] [place] [address] HIGH SENSITIVITY TROPONIN, S ERIAL, SECOND TESTon 10-17-2024 2H TROPONIN HS (SERIAL 2ND TROPONIN) 81 ng/L High <=14 [facility] Comment on above: Result Comment: Risi ng or falling troponin delta between 2 ??? 15 ng/L as compared to baseline value requires a 3rd serial troponin Performed By: #### L [id number] ####Shank Burnisher: ROSETTE ZHAO ([phone])[facility] ([facility])[address] [place] [address] 2H TROPONIN HS (SERIAL 2ND TROPONIN) 83 ng/L High <=14 [facility] Comment on above: Result Comment: Risi ng or falling troponin delta below 2 ng/L as compared to baseline value suggests thatacute cardiac injury is unlikely. Performed By: #### L [id number], [id number] ####Shank Burnisher: ROSETTE ZHAO ([phone])[facility] ([facility])[address] [place] [address] Hepatic function 2000 panelo n 10-17-2024 Albumin [Mass/Vol] 3.3 g/dL Low 3.4 - 4.8 g/dL [facility] ALP [Catalytic activity/Vol] 70 U/L 40 - 150 U/L [facility] ALT [Catalytic activity/Vol] 14 U/L NINF - 30 U/L [facility] AST [Catalytic activity/Vol] 30 U/L NINF - 34 U/L [facility] Bilirubin [Mass/Vol] 1 mg/dL NINF - 1.2 mg/dL [facility] Bilirubin.conjugated [Mass/Vol] 0.4 mg/dL NINF - 0.5 mg/dL [facility] Protein [Mass/Vol] 6.6 g/dL 6.4 - 8.3 g/dL [facility] Comment on above: Serum protein values are higher than plasma values. Samples from recumbent persons are lower by up to 0.5 g/dL as compared to ambulatory persons. After 60 years values are lower by up to 0.2 g/dL. LIPASEon 10-17-2024 Lipase [Catalytic activity/Vol] 9 U/L Normal <55 [facility] Comment on above: Performed By: #### L [id number], LAB20, LAB99, LAB15 ####Shank Burnisher: ROSETTE ZHAO ([phone])[facility] ([facility])[address] [place] [address] Laboratory - Chemistry and C hemistry - challengeon 10-17-2024 TSH Qn 2.48 m[IU]/L [facility] Lipase [Catalytic activity/Vol] 9 U/L NINF - 55 U/L [facility] Laboratory - Coagulationon 0 10-17-2024 Fibrin D-dimer FEU (PPP) [Mass/Vol] 0.55 mg/L High NINF - 0.50 mg/L [facility] Laboratory - Microbiology an d Antimicrobial susceptibilityon 10-17-2024 FLUAV RNA ISSAC+probe Ql (Resp) Not detected Not Detected [facility] FLUBV RNA ISSAC+probe Ql (Resp) Not detected Not Detected [facility] RSV RNA ISSAC+probe Ql (Resp) Not detected Not Detected [facility] SARS-CoV-2 (COVID-19) RNA ISSAC+probe Ql (Resp) Not detected Not Detected [facility] SARS-CoV-2 (COVID-19) RNA ISSAC+probe Ql (Unsp spec) Methodology: real-time, RT-PCR The SARS-CoV-2, Flu A/B, and RSV Combo assay is intended for in vitro diagnostic use under the FDA Emergency Use Authorization (EUA). This test has not been FDA cleared or approved. In compliance with this authorization, please visit www.fda.gov/media/ 1571/download or www.[employer].gov/media/ 1441/download to access the applicable information sheets. [facility] Lipase [Catalytic activity/V ol]on 10-17-2024 Interpretation and review of laboratory results Normal [facility] No Panel InformationOrdered By: Atilio Chaparro on 10-17-2024 2h Troponin HS (Serial 2nd Troponin) 81 ng/L High NINF - 14 ng/L [facility] Comment on above: Rising or falling tr oponin delta between 2 15 ng/L as compared to baseline value requires a 3rd serial troponin Interpretation and review of laboratory results Abnormal [facility] No Panel Informationon 10-17 Interpretation and review of laboratory results Abnormal [facility] Troponin HS Serial Baseline 76 ng/L High NINF - 14 ng/L [facility] Comment on above: In individuals prese nting with symptoms > 2h, a baseline troponin <= 5 ng/L suggests acute cardiac injury is unlikely and further serial testing is generally not indicated. [facility] 2h Troponin HS (Serial 2nd Troponin) 83 ng/L High NINF - 14 ng/L [facility] Comment on above: Rising or falling tr oponin delta below 2 ng/L as compared to baseline value suggests that acute cardiac injury is unlikely. Interpretation and review of laboratory results Abnormal [facility] Interpretation and review of laboratory results Abnormal [facility] Troponin HS Serial Baseline 82 ng/L High NINF - 14 ng/L [facility] Comment on above: In individuals prese nting with symptoms > 2h, a baseline troponin <= 5 ng/L suggests acute cardiac injury is unlikely and further serial testing is generally not indicated. [facility] Interpretation and review of laboratory results Abnormal [facility] P [place] 0 degrees [facility] FL Interval 0 ms [facility] QRS [place] -34 degrees [facility] QRSD Interval 83 ms [facility] QT Interval 346 ms [facility] QTC Interval 471 ms [facility] T Wave [place] 107 degrees [facility] Atrial fibrillation Anterior infarct, old Nonspecific T abnormalities, lateral leads Minimal ST elevation, lateral leads Electronically Signed On 10-17-2024 11:13:09 EST by Ag Meng CV Ag Garrett MD - 10/17/2024 IMPRESSION: Atrial fibrillation Anterior infarct, old Nonspecific T abnormalities, lateral leads Minimal ST elevation, lateral leads Electronically Signed On 10-17-2024 11:13:09 EST by Ag Meng [facility] SARS-COV-2, FLU A/B, AND RSV COMBOon 10-17-2024 SARS-CoV-2 (COVID-19) RNA ISSAC+probe Ql (Unsp spec) Normal [facility] Comment on above: Performed By: #### L [id number] ####Shank Burnisher: ROSETTE ZHAO ([phone])[facility] ([facility])[address] [place] [address] THYROID STIMULATING HORMONEo n 10-17-2024 THYROID STIMULATING HORMONE 2.48 uIU/mL Normal 0.35-4.94 [facility] Comment on above: Performed By: #### L [id number] ####Shank Burnisher: ROSETTE ZHAO ([id number])[facility] ([facility])[address] [place] [address] TSH Qnon 10-17-2024 Interpretation and review of laboratory results Normal [facility] URINE CULTUREon 10-17-2024 Bacteria identified Cx Nom (U) Normal [facility] Comment on above: Performed By: #### L [id number] ####Shank Burnisher: ROSETTE ZHAO ([phone])[facility] ([facility])[address] [place] [address]#### [id number] ####Shank Burnisher: SHEEBA MUSTAFA ([phone])[facility] ([address] Urinalysis complete panel (U )Ordered By: Marcela Sahu on 10-17-2024 Bacteria LM.HPF (Urine sed) [#/Area] Many Abnormal Negative /HPF [facility] Bilirubin Ql (U) Negative Negative mg/dL [facility] Clarity (U) Extra Turbid Abnormal Clear [facility] ([facility] Yellow Lt. Yellow [facility] Epithelial cells.squamous LM.HPF (Urine sed) [#/Area] 0-2 [facility] Glucose Ql (U) Normal Normal (<70) mg/dL [facility] Hemoglobin Ql (U) 0.03 mg/dL Abnormal Negative [facility] Interpretation and review of laboratory results Abnormal [facility] Ketones (U) [Mass/Vol] Negative Negat jaciel mg/dL [facility] Leukocyte esterase Test strip Ql (U) 75 Abnormal Negative Cathy/uL [facility] Nitrite Ql (U) Negative Negative [facility] th pH (U) 8.0 [pH] 5.0 - 8.0 pH [facility] Protein (U) [Mass/Vol] 30 mg/dL Abnormal Negative [facility] RBC LM.HPF (Urine sed) [#/Area] 3-5 Abnormal [facility] Specific gravity (U) [Rel density] 1.014 1.005 - 1.030 [facility] Triple phosphate crystals LM.HPF (Urine sed) [#/Area] Moderate Abnormal Negative /HPF [facility] Urobilinogen (U) [Mass/Vol] Normal Normal (0-1) mg/dL [facility] WBC LM.HPF (Urine sed) [#/Area] 11-25 Abnormal [facility] Vital signson 10-17-2024 Heart rate 111 /min bpm [facility] XR Chest Single viewon 10-17 Mild left basilar atelectasis or infiltrates. Report Dictated on Electronically Signed By: Bakari Mcdonnell DR Electronically Signed Date/Time: 10/17/2024 11:35 AM [facility] [employer] RADIOLOGY SYSTEM Patient Name: SOMMER FRIEDMAN : 1940 Exam Date/Time: 10/17/2024 11:20 Procedure: XR CHEST 1 VIEW Ordering Provider: VELEZ CONNOR Reason For Exam: CHEST PAIN Clinical History: CHEST PAIN Comparison: None Technique: Single AP radiograph of the chest. Findings: Borderline cardiomegaly. Pulmonary vasculature is normal. Bilateral calcified breast prostheses obscuring the lower lungs. Left costophrenic patchy opacity. The lungs and pleural spaces are otherwise clear. No sizable pneumothorax. [facility] Bakari Mcdonnell MD - 10/17/2024 Patient Name: SOMMER FRIEDMAN : 1940 Exam Date/Time: 10/17/2024 11:20 Procedure: XR CHEST [...] Electronically Signed Date/Time: 10/17/2024 11:35 AM EST [facility] Radiology Study observation (narrative) [facility]th XR Chest Single viewOrdered By: Bakari Mcdonnell on 10-17-2024 [facility] Work Phone: Serum or plasma thyroid stim ulating hormone (TSH) measurement (units/volume)Ordered By: Kathi Juarez on 10-08-2024 TSH Qn 3.490 uIU/mL 0.358-3.740 [facility] Serum or plasma thyroxine (T 4) measurement (mass/volume)Ordered By: Kathi Juarez on 10-08-2024 T4 [Mass/Vol] 11.8 ug/dL 4.8-13.9 [facility] Serum or plasma triiodothyro nine measurement by immunoassay (mass/volume)Ordered By: Kathi Juarez on 10-08-2024 T3 IA [Mass/Vol] 0.75 ng/mL 0.6-1.81 [facility] CNOVon 08-23-2024 CNOV Office Visit ([place]) SOMMER FRIEDMAN ([id number]) 1940 F Date Time Provider Department 08/23/24 9:00 AM JOANA WILSON During your visit today, we recorded the following information about you: Pulse Blood pressure Weight Height 74/minute 160/80 57.6 kg 1.626 m Joana Wilson MD 08/23/2024 4:35 PM Signed [facility] [place] SECTION OF REGIONAL CARDIOLOGY OUTPATIENT VISIT DATE 08/23/2024 OUTPATIENT VISIT TYPE NEW Patient is being seen at the request of Self for elevated BP. HISTORY OF PRESENT ILLNESS: Ms. Friedman is a 84 year old female, hx of atrial fibrillation, HLD, Hypertension, thyroid disease, COPD, anxiety, bradycardia presents for elevated BP. Accompanied by her caregiver. She resides [facility] ([phone]). Her POA is her son Parris Friedman [phone]. She denies chest pain, SOB, palpitations, orthopnea, PND, leg swelling, lightheadedness, syncope. She feels well and states that she us unsure why she needs to see cardiology and does not have any cardiac concerns/ symptoms. EKG: NSR HR 74, biphasic appearing T waves in V4-V6, QTc 481, PACs. She had presented to [facility] ER on 04/10/2024 with lower back pain. [...] 160/80 Pulse 74 Ht 162.6 cm (5' 4") Wt 57.6 kg (126 lb 15.8 oz) [...] on today's visit. I spoke to the night coordinator at her residence who stated that her nurse was unavailable. I left a message for her nurse to contact me via telephone to update her on the visit. Joana Wilson MD, [facility] invasive [facility] Client Service Supervisor Referring Provider: ROYER ZAMBRANO [[id number]] Allergies As of Date: 08/23/2024 Noted Allergy Reaction GABAPENTIN 08/23/2024 5 - Intolerance PROPOXYPHENE 08/23/2024 5 - Intolerance Date Reviewed: 08/23/2024 Reviewed by: Campbell Blake LPN - Fully Assessed Reason for Visit: Emmett Hatfield (more content not included)... Normal [facility] [id number] 08-23-2024 ECG01 Ventricular Rate : 74 BPM Atrial Rate : 74 BPM P-R Interval : 126 ms QRS Duration : 78 ms Q-T Interval : 434 ms QTC Calculation(Bazett) : 481 ms Calculated P [place] : 108 degrees Calculated R [place] : -3 degrees Calculated T [place] : 101 degrees SINUS RHYTHM WITH PREMATURE ATRIAL COMPLEXES MINIMAL VOLTAGE CRITERIA FOR LVH, MAY BE NORMAL VARIANT ( Corona product ) Septal Infarct , AGE UNDETERMINED LATERAL T WAVE ABNORMALITY ABNORMAL ECG Confirmed by MD ACEVEDO GREGORY () on 08/26/2024 4:41:23 PM NAME : SOMMER FRIEDMAN PID : [id number] : 1940 Gender : Female Race : ORD : Procedure Date : Aug 23 2024 09:00:02 Edit Date : Aug 26 2024 16:41:24 Diagnosis: SINUS RHYTHM WITH PREMATURE ATRIAL COMPLEXES MINIMAL VOLTAGE CRITERIA FOR LVH, MAY BE NORMAL VARIANT ( Corona product ) Septal Infarct , AGE UNDETERMINED LATERAL T WAVE ABNORMALITY ABNORMAL ECG Confirmed by MD ACEVEDO GREGORY () on 08/26/2024 4:41:23 PM Test Reason : Location : 211 : MECARD Overread By : MD ACEVEDO GREGORY Edited By : MD ACEVEDO GREGORY Referred By : ROYER ZAMBRANO Acquired by : Laura MALAVE [facility] CARECOORDon 04-12-2024 [facility] CARECOORD Called son Parris to review discharge time/plan. He is agreeable and wants to talk with Dr. Shannon re: diagnosis.[facility] has notified [facility] of [facility]. [facility] MAR & Discharge med list transmitted to [facility] Return - [facility] via [facility] per [facility] request. Electronically signed by ALECIA Cates [facility] CARECOORD [facility] IDNon 04-12-2024 IDN [facility] Nursing Noteon 04-12-2024 Nursing Note Report called to Joan Vyas. [facility] Nursing Note Attempted to call report to [facility]. The nurse was unavailable. Message left with veneer taper. [facility] Progress Noteon 04-12-2024 Progress Note Normal [facility] Progress Note Normal [facility] Progress Note Nutrition rescreen completed. Chart reviewed. Patient to be monitored and followed by the diet gastrointestinal technician. BENNIE Pandey [facility] BASIC METABOLIC PANELon 03-22 Anion gap [Moles/Vol] 4 mmol/L Normal 3-13 [facility] Comment on above: Performed By: #### L [id number] ####Shank Burnisher: SHEEBA MUSTAFA ([phone])[facility] [place] [address] Calcium [Mass/Vol] 9.0 mg/dL Normal 8.4-10.4 [facility] Comment on above: Performed By: #### L [id number] ####Shank Burnisher: SHEEBA MUSTAFA ([phone])[facility] [place] [address] Chloride [Moles/Vol] 106 mmol/L Normal 98-107 [facility] Comment on above: Performed By: #### L [id number] ####Shank Burnisher: SHEEBA MUSTAFA ([id number])[facility] ([facility])[address] [place] [address] CO2 [Moles/Vol] 20 mmol/L Low 22-30 [facility] Comment on above: Performed By: #### L [id number] ####Shank Burnisher: SHEEBA MUSTAFA ([id number])[facility] ([facility])[address] [place] [address] Creatinine [Mass/Vol] 0.81 mg/dL Normal 0.52-1.04 [facility] Comment on above: Performed By: #### L [id number] ####Shank Burnisher: SHEEBA MUSTAFA ([phone])[facility] ([facility])[address] [place] [address] [place] GLOMERULAR FILTRATION RATE ML/MIN/1.73 SQ M.PREDICTED 72.6 mL/min/1.73m*2 Normal >60.0 [facility] Comment on above: Result Comment: Calc ulation based on the Chronic Kidney Disease Epidemiology Collaboration (CKD-EPI) equation refit without adjustment for race Performed By: #### L [id number] ####Shank Burnisher: SHEEBA MUSTAFA ([phone])[facility] ([facility])[address] [place] [address] [place] Glucose [Mass/Vol] 108 mg/dL High 70-100 [facility] Comment on above: Performed By: #### L [id number] ####Shank Burnisher: SHEEBA MUSTAFA ([phone])[facility] ([facility])[address] [place] [address] [place] Potassium [Moles/Vol] 3.9 mmol/L Normal 3.5-5.1 [facility] Comment on above: Performed By: #### L [id number] ####Shank Burnisher: SHEEBA MUSTAFA ([phone])[facility] ([facility])[address] [place] [address] Sodium [Moles/Vol] 130 mmol/L Low 135-145 [facility] Comment on above: Performed By: #### L [id number] ####Shank Burnisher: SHEEBA MUSTAFA ([phone])[facility] ([facility])[address] [place] [address] Urea nitrogen [Mass/Vol] 19 mg/dL High 7-17 [facility] Comment on above: Performed By: #### L [id number] ####Shank Burnisher: SHEEBA MUSTAFA ([phone])[facility] ([facility])[address] [place] [address] Anion gap [Moles/Vol] 5 mmol/L Normal 3-13 [facility] Comment on above: Performed By: #### L [id number] ####Shank Burnisher: SHEEBA MUSTAFA ([phone])[facility] ([facility])[address] [place] [address] Calcium [Mass/Vol] 9.1 mg/dL Normal 8.4-10.4 [facility] Comment on above: Performed By: #### L [id number] ####Shank Burnisher: SHEEBA MUSTAFA ([phone])[facility] ([facility])[address] [place] [address] Chloride [Moles/Vol] 108 mmol/L High 98-107 [facility] Comment on above: Performed By: #### L [id number] ####Shank Burnisher: SHEEBA MUSTAFA ([id number])[facility] ([facility])[address] [place] [address] CO2 [Moles/Vol] 19 mmol/L Low 22-30 [facility] Comment on above: Performed By: #### L [id number] ####Shank Burnisher: SHEEBA MUTSAFA ([phone])[facility] [place] [address] Creatinine [Mass/Vol] 0.73 mg/dL Normal 0.52-1.04 [facility] Comment on above: Performed By: #### L [id number] ####Shank Burnisher: SHEEBA MUSTAFA ([phone])[facility] ([facility])[address] [place] [address] [place] GLOMERULAR FILTRATION RATE ML/MIN/1.73 SQ M.PREDICTED 82.2 mL/min/1.73m*2 Normal >60.0 [facility] Comment on above: Result Comment: Calc ulation based on the Chronic Kidney Disease Epidemiology Collaboration (CKD-EPI) equation refit without adjustment for raceORDER COMMENTS:Slightly Hemolyzed. Interpret K+ with caution. Performed By: #### L [id number] ####Shank Burnisher: SHEBEA MUSTAFA ([phone])[facility] ([facility])[address] [place] [address] Glucose [Mass/Vol] 100 mg/dL Normal 70-100 [facility] Comment on above: Performed By: #### L [id number] ####Shank Burnisher: SHEEBA MUSTAFA ([phone])[facility] ([facility])[address] [place] [address] Potassium [Moles/Vol] 4.8 mmol/L Normal 3.5-5.1 [facility] Comment on above: Performed By: #### L [id number] ####Shank Burnisher: SHEEBA MUSTAFA ([phone])[facility])[address] [place] [address] Sodium [Moles/Vol] 133 mmol/L Low 135-145 [facility] Comment on above: Performed By: #### L [id number] ####Shank Burnisher: SHEEBA MUSTAFA ([phone])[facility])[address] [place] [address] Urea nitrogen [Mass/Vol] 20 mg/dL High 7-17 [facility] Comment on above: Performed By: #### L [id number] ####Shank Burnisher: SHEEBA MUSTAFA ([phone])[facility] ([facility])[address] [place] [address] Basic metabolic 1998 panelon 04-11-2024 Anion gap [Moles/Vol] 4 mmol/L 3 - 13 mmol/L [facility] Calcium [Mass/Vol] 9.0 mg/dL 8.4 - 10. 4 mg/dL [facility] Chloride [Moles/Vol] 106 mmol/L 98 - 10 7 mmol/L [facility] CO2 [Moles/Vol] 20 mmol/L Low 22 - 30 mmol/L [facility] Creatinine [Mass/Vol] 0.81 mg/dL 0.52 - 1.04 mg/dL [facility] GFR/1.73 sq M.predicted (S/P/Bld) [Vol rate/Area] 72.6 mL/min - PINF [facility] [employer] Comment on above: Calculation based on the Chronic Kidney Disease Epidemiology Collaboration (CKD-EPI) equation refit without adjustment for race Glucose [Mass/Vol] 108 mg/dL High 70 - 100 mg/dL [facility] Interpretation and review of laboratory results Abnormal [facility] Potassium [Moles/Vol] 3.9 mmol/L 3.5 - 5.1 mmol/L [facility] Sodium [Moles/Vol] 130 mmol/L Low 135 - 145 mmol/L [facility] Urea nitrogen [Mass/Vol] 19 mg/dL High 7 - 17 mg/d L [facility] Anion gap [Moles/Vol] 5 mmol/L 3 - 13 mmol/L [facility] Calcium [Mass/Vol] 9.1 mg/dL 8.4 - 10. 4 mg/dL [facility] Chloride [Moles/Vol] 108 mmol/L High 98 - 10 7 mmol/L [facility] CO2 [Moles/Vol] 19 mmol/L Low 22 - 30 mmol/L [facility] Creatinine [Mass/Vol] 0.73 mg/dL 0.52 - 1.04 mg/dL [facility] GFR/1.73 sq M.predicted (S/P/Bld) [Vol rate/Area] 82.2 mL/min - PINF [facility] Comment on above: Calculation based on the Chronic Kidney Disease Epidemiology Collaboration (CKD-EPI) equation refit without adjustment for race Glucose [Mass/Vol] 100 mg/dL 70 - 100 mg/dL [facility] Interpretation and review of laboratory results Abnormal [facility] Potassium [Moles/Vol] 4.8 mmol/L 3.5 - 5.1 mmol/L [facility] Sodium [Moles/Vol] 133 mmol/L Low 135 - 145 mmol/L [facility] Urea nitrogen [Mass/Vol] 20 mg/dL High 7 - 17 mg/d L [facility] Slightly Hemolyzed. Interpret K+ with caution. [facility] CARECOORDon 04-11-2024 CARECOORD Normal [facility] CBC W Auto Differential pane l (Bld)on 04-11-2024 Basophils (Bld) [#/Vol] 0.0 10*3/uL 0.0 - 0.2 10*3/uL [facility] Basophils/100 WBC (Bld) 0.4 % 0.0 - 2.0 % [facility] Eosinophils (Bld) [#/Vol] 0.2 10*3/uL 0. 0 - 0.5 10*3/uL [facility] Eosinophils/100 WBC (Bld) 2.3 % 0.0 - 6.0 % [facility] Erythrocyte distribution width (RBC) [Ratio] 12.4 % 11.5 - 15.0 % [facility] Hematocrit (Bld) [Volume fraction] 37.3 % 35.0 - 47.0 % [facility] Hemoglobin (Bld) [Mass/Vol] 12.4 g/dL 11.7 - 16.0 g/dL [facility] Immature granulocytes (Bld) [#/Vol] 0.1 10*3/uL High NINF - 0.1 10*3/uL [facility] Immature granulocytes/100 WBC (Bld) 0.7 % 0.0 - 2.0 % [facility] Interpretation and review of laboratory results Abnormal [facility] Lymphocytes (Bld) [#/Vol] 2.5 10*3/uL 1. 0 - 4.3 10*3/uL [facility] Lymphocytes/100 WBC (Bld) 30.3 % 15 .0 - 45.0 % [facility] MCH (RBC) [Entitic mass] 31.9 pg 26. 0 - 34.0 pg [facility] MCHC (RBC) [Mass/Vol] 33.2 % 30.5 - 36.0 % [facility] MCV (RBC) [Entitic vol] 95.9 fL 77.0 - 99.0 fL [facility] Monocytes (Bld) [#/Vol] 1.0 10*3/uL High 0.0 - 0.9 10*3/uL [facility] Monocytes/100 WBC (Bld) 12.0 % 5.0 - 13.0 % [facility] Neutrophils (Bld) [#/Vol] 4.4 10*3/uL 1. 8 - 7.5 10*3/uL [facility] Neutrophils/100 WBC (Bld) 54.3 % 38 .0 - 82.0 % [facility] Nucleated RBC/100 WBC (Bld) [Ratio] 0.0 % [facility] Platelet mean volume (Bld) [Entitic vol] 9.0 fL 9.0 - 12.7 fL [facility] Platelets (Bld) [#/Vol] 249 10*3/uL 140 - 440 10*3/uL [facility] RBC (Bld) [#/Vol] 3.89 10*6/uL 3.80 - 5.2 0 10*6/uL [facility] WBC (Bld) [#/Vol] 8.1 10*3/uL 3.6 - 10.7 10*3/uL [facility] Basophils (Bld) [#/Vol] 0.0 10*3/uL 0.0 - 0.2 10*3/uL [facility] Basophils/100 WBC (Bld) 0.4 % 0.0 - 2.0 % [facility] Eosinophils (Bld) [#/Vol] 0.2 10*3/uL 0. 0 - 0.5 10*3/uL [facility] Eosinophils/100 WBC (Bld) 2.5 % 0.0 - 6.0 % [facility] Erythrocyte distribution width (RBC) [Ratio] 12.5 % 11.5 - 15.0 % [facility] Hematocrit (Bld) [Volume fraction] 39.2 % 35.0 - 47.0 % [facility] Hemoglobin (Bld) [Mass/Vol] 13.5 g/dL 11.7 - 16.0 g/dL [facility] Immature granulocytes (Bld) [#/Vol] 0.0 10*3/uL NINF - 0.1 10*3/uL [facility] Immature granulocytes/100 WBC (Bld) 0.5 % 0.0 - 2.0 % [facility] Interpretation and review of laboratory results Abnormal [facility] Lymphocytes (Bld) [#/Vol] 2.8 10*3/uL 1. 0 - 4.3 10*3/uL [facility] Lymphocytes/100 WBC (Bld) 33.7 % 15 .0 - 45.0 % [facility] MCH (RBC) [Entitic mass] 33.2 pg 26. 0 - 34.0 pg [facility] MCHC (RBC) [Mass/Vol] 34.4 % 30.5 - 36.0 % [facility] MCV (RBC) [Entitic vol] 96.3 fL 77.0 - 99.0 fL [facility] Monocytes (Bld) [#/Vol] 1.2 10*3/uL High 0.0 - 0.9 10*3/uL [facility] Monocytes/100 WBC (Bld) 14.3 % High 5.0 - 13.0 % [facility] Neutrophils (Bld) [#/Vol] 4.1 10*3/uL 1. 8 - 7.5 10*3/uL [facility] Neutrophils/100 WBC (Bld) 48.6 % 38 .0 - 82.0 % [facility] Nucleated RBC/100 WBC (Bld) [Ratio] 0.0 % [facility] Platelet mean volume (Bld) [Entitic vol] 9.9 fL 9.0 - 12.7 fL [facility] Platelets (Bld) [#/Vol] 331 10*3/uL 140 - 440 10*3/uL [facility] RBC (Bld) [#/Vol] 4.07 10*6/uL 3.80 - 5.2 0 10*6/uL [facility] WBC (Bld) [#/Vol] 8.4 10*3/uL 3.6 - 10.7 10*3/uL [facility] CBC WITH AUTO DIFFERENTIALon 04-11-2024 Basophils (Bld) [#/Vol] 0.0 10*3/uL Normal 0.0-0.2 [facility] Comment on above: Performed By: #### L [id number] ####Shank Burnisher: SHEEBA MUSTAFA ([id number])[facility])[address] [place] [address] Basophils/100 WBC (Bld) 0.4 % Normal 0.0-2.0 [facility] Comment on above: Performed By: #### L [id number] ####Shank Burnisher: SHEEBA MUSTAFA ([id number])[facility])[address] [place] [address] Eosinophils (Bld) [#/Vol] 0.2 10*3/uL Normal 0.0-0.5 [facility] Comment on above: Performed By: #### L [id number] ####Shank Burnisher: SHEEBA MUSTAFA ([phone])[facility])[address] [place] [address] Eosinophils/100 WBC (Bld) 2.3 % Normal 0.0-6.0 [facility] Comment on above: Performed By: #### L [id number] ####Shank Burnisher: SHEEBA MUSTAFA ([id number])[facility])[address] [place] [address] Erythrocyte distribution width (RBC) [Ratio] 12.4 % Normal 11.5-15.0 [facility] Comment on above: Performed By: #### L [id number] ####Shank Burnisher: SHEEBA MUSTAFA ([id number])[address] Hematocrit (Bld) [Volume fraction] 37.3 % Normal 35.0-47.0 [facility] Comment on above: Performed By: #### L [id number] ####Shank Burnisher: SHEEBA MUSTAFA ([id number])[facility])[address] [place] [address] Hemoglobin (Bld) [Mass/Vol] 12.4 g/dL Normal 11.7-16.0 [facility] Comment on above: Performed By: #### L [id number] ####Shank Burnisher: SHEEBA MUSTAFA ([phone])[facility])[address] [place] [address] IMMATURE GRANS % 0.7 % Normal 0.0-2.0 [facility] Comment on above: Performed By: #### L [id number] ####Shank Burnisher: SHEEBA MUSTAFA ([phone])[facility])[address] [place] [address] IMMATURE GRANS ABSOLUTE 0.1 10*3/uL High <0.1 [facility] Comment on above: Performed By: #### L [id number] ####Shank Burnisher: SHEEBA MUSTAFA ([phone])[facility])[address] [place] [address] Lymphocytes (Bld) [#/Vol] 2.5 10*3/uL Normal 1.0-4.3 [facility] Comment on above: Performed By: #### L [id number] ####Shank Burnisher: SHEEBA MUSTAFA ([phone])[address] Lymphocytes/100 WBC (Bld) 30.3 % Normal 15.0-45.0 [facility] Comment on above: Performed By: #### L [id number] ####Shank Burnisher: SHEEBA MUSTAFA ([phone])[facility])[address] [place] [address] MCH (RBC) [Entitic mass] 31.9 pg Normal 26.0-34.0 [facility] Comment on above: Performed By: #### L [id number] ####Shank Burnisher: SHEEBA MUSTAFA ([phone])[address] MCHC 33.2 % Normal 30.5-36.0 [facility] Comment on above: Performed By: #### L [id number] ####Shank Burnisher: SHEEBA MUSTAFA ([phone])[facility])[address] [place] [address] MCV (RBC) [Entitic vol] 95.9 fL Normal 77.0-99.0 [facility] Comment on above: Performed By: #### L [id number] ####Shank Burnisher: SHEEBA MUSTAFA ([phone])[facility] ([facility])[address] [place] [address] Monocytes (Bld) [#/Vol] 1.0 10*3/uL High 0.0-0.9 [facility] Comment on above: Performed By: #### L [id number] ####Shank Burnisher: SHEEBA MUSTAFA ([phone])[facility] ([facility])[address] [place] [address] Monocytes/100 WBC (Bld) 12.0 % Normal 5.0-13.0 [facility] Comment on above: Performed By: #### L [id number] ####Shank Burnisher: SHEEBA MUSTAFA ([phone])[facility] ([facility])[address] [place] [address] NEUTROPHILS ABSOLUTE 4.4 10*3/uL Normal 1.8-7.5 [facility] Comment on above: Performed By: #### L [id number] ####Shank Burnisher: SHEEBA MUSTAFA ([phone])[facility] ([facility])[address] [place] [address] Neutrophils/100 WBC (Bld) 54.3 % Normal 38.0-82.0 [facility] Comment on above: Performed By: #### L [id number] ####Shank Burnisher: SHEEBA MUSTAFA ([phone])[facility] ([facility])[address] [place] [address] NRBC 0.0 /100 WBCs Normal 0.0-2.0 [facility] Comment on above: Performed By: #### L [id number] ####Shank Burnisher: SHEEBA MUSTAFA ([phone])[facility] ([facility])[address] [place] [address] Platelet mean volume (Bld) [Entitic vol] 9.0 fL Normal 9.0-12.7 [facility] Comment on above: Performed By: #### L [id number] ####Shank Burnisher: SHEEBA MUSTAFA ([phone])[facility])[address] [place] [address] Platelets (Bld) [#/Vol] 249 10*3/uL Normal 140-440 [facility] Comment on above: Performed By: #### L [id number] ####Shank Burnisher: SHEEBA MUSTAFA ([phone])[facility])[address] [place] [address] RBC (Bld) [#/Vol] 3.89 10*6/uL Normal 3.80-5.20 [facility] Comment on above: Performed By: #### L [id number] ####Shank Burnisher: SHEEBA MUSTAFA ([phone])[facility])[address] [place] [address] WBC (Bld) [#/Vol] 8.1 10*3/uL Normal 3.6-10.7 [facility] Comment on above: Performed By: #### L [id number] ####Shank Burnisher: SHEEBA MUSTAFA ([phone])[facility] ([facility])[address] [place] [address] Basophils (Bld) [#/Vol] 0.0 10*3/uL Normal 0.0-0.2 [facility] Comment on above: Performed By: #### L [id number] ####Shank Burnisher: SHEEBA MUSTAFA ([phone])[facility])[address] [place] [address] Basophils/100 WBC (Bld) 0.4 % Normal 0.0-2.0 [facility] Comment on above: Performed By: #### L [id number] ####Shank Burnisher: SHEEBA MUSTAFA ([phone])[facility])[address] [place] [address] [place] Eosinophils (Bld) [#/Vol] 0.2 10*3/uL Normal 0.0-0.5 [facility] Comment on above: Performed By: #### L [id number] ####Shank Burnisher: SHEEBA MUSTAFA ([phone])[facility] Eosinophils/100 WBC (Bld) 2.5 % Normal 0.0-6.0 [facility] Comment on above: Performed By: #### L [id number] ####Shank Burnisher: SHEEBA MUSTAFA ([phone])[facility])[address] [place] [address] Erythrocyte distribution width (RBC) [Ratio] 12.5 % Normal 11.5-15.0 [facility] Comment on above: Performed By: #### L [id number] ####Shank Burnisher: SHEEBA MUSTAFA ([phone])[address] Hematocrit (Bld) [Volume fraction] 39.2 % Normal 35.0-47.0 [facility] Comment on above: Performed By: #### L [id number] ####Shank Burnisher: SHEEBA MUSTAFA ([phone])[facility])[address] [place] [address] Hemoglobin (Bld) [Mass/Vol] 13.5 g/dL Normal 11.7-16.0 [facility] Comment on above: Performed By: #### L [id number] ####Shank Burnisher: SHEEBA MUSTAFA ([phone])[facility])[address] [place] [address] IMMATURE GRANS % 0.5 % Normal 0.0-2.0 [facility] Comment on above: Performed By: #### L [id number] ####Shank Burnisher: SHEEBA MUSTAFA ([phone])[facility])[address] [place] [address] IMMATURE GRANS ABSOLUTE 0.0 10*3/uL Normal <0.1 [facility] Comment on above: Performed By: #### L [id number] ####Shank Burnisher: SHEEBA MUSTAFA ([phone])[facility])[address] [place] [address] Lymphocytes (Bld) [#/Vol] 2.8 10*3/uL Normal 1.0-4.3 [facility] Comment on above: Performed By: #### L [id number] ####Shank Burnisher: SHEEBA MUSTAFA ([phone])[facility])[address] [place] [address] Lymphocytes/100 WBC (Bld) 33.7 % Normal 15.0-45.0 [facility] Comment on above: Performed By: #### L [id number] ####Shank Burnisher: SHEEBA MUSTAFA ([phone])[facility] ([facility])[address] [place] [address] MCH (RBC) [Entitic mass] 33.2 pg Normal 26.0-34.0 [facility] Comment on above: Performed By: #### L [id number] ####Shank Burnisher: SHEEBA MUSTAFA ([phone])[facility])[address] [place] [address] MCHC 34.4 % Normal 30.5-36.0 [facility] Comment on above: Performed By: #### L [id number] ####Shank Burnisher: SHEEBA MUSTAFA ([phone])[facility])[address] [place] [address] MCV (RBC) [Entitic vol] 96.3 fL Normal 77.0-99.0 [facility] Comment on above: Performed By: #### L [id number] ####Shank Burnisher: SHEEBA MUSTAFA ([phone])[facility])[address] [place] [address] Monocytes (Bld) [#/Vol] 1.2 10*3/uL High 0.0-0.9 [facility] Comment on above: Performed By: #### L [id number] ####Shank Burnisher: SHEEBA MUSTAFA ([phone])[facility])[address] [place] [address] Monocytes/100 WBC (Bld) 14.3 % High 5.0-13.0 [facility] Comment on above: Performed By: #### L [id number] ####Shank Burnisher: SHEEBA MUSTAFA ([phone])[facility] ([facility])[address] [place] [address] NEUTROPHILS ABSOLUTE 4.1 10*3/uL Normal 1.8-7.5 [facility] Comment on above: Performed By: #### L [id number] ####Shank Burnisher: SHEEBA MUSTAFA ([phone])[facility])[address] [place] [address] Neutrophils/100 WBC (Bld) 48.6 % Normal 38.0-82.0 [facility] Comment on above: Performed By: #### L [id number] ####Shank Burnisher: SHEEBA MUSTAFA ([phone])[facility])[address] [place] [address] NRBC 0.0 /100 WBCs Normal 0.0-2.0 [facility] Comment on above: Performed By: #### L [id number] ####Shank Burnisher: SHEEBA MUSTAFA ([id number])[facility] ([facility])[address] [place] [address] Platelet mean volume (Bld) [Entitic vol] 9.9 fL Normal 9.0-12.7 [facility] Comment on above: Performed By: #### L [id number] ####Shank Burnisher: SHEEBA MUSTAFA ([phone])[facility] ([facility])[address] [place] [address] Platelets (Bld) [#/Vol] 331 10*3/uL Normal 140-440 [facility] Comment on above: Performed By: #### L [id number] ####Shank Burnisher: SHEEBA MUSTAFA ([phone])[facility] ([facility])[address] [place] [address] RBC (Bld) [#/Vol] 4.07 10*6/uL Normal 3.80-5.20 [facility] Comment on above: Performed By: #### L [id number] ####Shank Burnisher: SHEEBA MUSTAFA ([phone])[facility] ([facility])[address] [place] [address] WBC (Bld) [#/Vol] 8.4 10*3/uL Normal 3.6-10.7 [facility] Comment on above: Performed By: #### L [id number] ####Shank Burnisher: SHEEBA MUSTAFA ([phone])[facility] ([facility])[address] [place] [address] Consulton 04-11-2024 Consult Normal [facility] LACTIC ACID WITH REFLEXon Lactate [Moles/Vol] 0.6 mmol/L Low 0.7-2.0 [facility] Comment on above: Performed By: #### L [id number] ####Shank Burnisher: SHEEBA MUSTAFA ([phone])[facility] ([facility])[address] [place] [address] Laboratory - Chemistry and C hemistry - challengeon 04-11-2024 Lactate [Moles/Vol] 0.6 mmol/L Low 0.7 - 2. 0 mmol/L [facility] Glucose [Mass/Vol] 103 mg/dL High 70 - 100 mg/dL [facility] No Panel Informationon 04-11 Interpretation and review of laboratory results Abnormal [facility] Interpretation and review of laboratory results Abnormal [facility] Performed by: [facility], [address] [place] [address] CLIA ID: [id number] [facility] Nursing Noteon 04-11-2024 Nursing Note Patient noted to be diaphoretic, clammy, and stated she felt "woozy". BGT 103. BP 100/47 map 65. Pulse 51. Temp 98.2 oral and resps even and unlabored. USACS paged and lactic + 1000ml NS bolus ordered. Normal [facility] Nursing Note Jones cath discontinued. 300 cc clear yellow urine in bag. Aisha well. Normal [facility] Progress Noteon 04-11-2024 Progress Note Normal [facility] Progress Note Normal [facility] CBC W Auto Differential pane l (Bld)on 04-10-2024 Basophils (Bld) [#/Vol] 0.0 10*3/uL 0.0 - 0.2 10*3/uL [facility] Basophils/100 WBC (Bld) 0.4 % 0.0 - 2.0 % [facility] Eosinophils (Bld) [#/Vol] 0.2 10*3/uL 0. 0 - 0.5 10*3/uL [facility] Eosinophils/100 WBC (Bld) 2.4 % 0.0 - 6.0 % [facility] Erythrocyte distribution width (RBC) [Ratio] 12.4 % 11.5 - 15.0 % [facility] Hematocrit (Bld) [Volume fraction] 40.6 % 35.0 - 47.0 % [facility] Hemoglobin (Bld) [Mass/Vol] 13.6 g/dL 11.7 - 16.0 g/dL [facility] Immature granulocytes (Bld) [#/Vol] 0.1 10*3/uL High NINF - 0.1 10*3/uL [facility] Immature granulocytes/100 WBC (Bld) 1.0 % 0.0 - 2.0 % [facility] Interpretation and review of laboratory results Abnormal [facility] Lymphocytes (Bld) [#/Vol] 2.4 10*3/uL 1. 0 - 4.3 10*3/uL [facility] Lymphocytes/100 WBC (Bld) 29.6 % 15 .0 - 45.0 % [facility] MCH (RBC) [Entitic mass] 32.4 pg 26. 0 - 34.0 pg [facility] MCHC (RBC) [Mass/Vol] 33.5 % 30.5 - 36.0 % [facility] MCV (RBC) [Entitic vol] 96.7 fL 77.0 - 99.0 fL [facility] Monocytes (Bld) [#/Vol] 1.1 10*3/uL High 0.0 - 0.9 10*3/uL [facility] Monocytes/100 WBC (Bld) 14.0 % High 5.0 - 13.0 % [facility] Neutrophils (Bld) [#/Vol] 4.2 10*3/uL 1. 8 - 7.5 10*3/uL [facility] Neutrophils/100 WBC (Bld) 52.6 % 38 .0 - 82.0 % [facility] Nucleated RBC/100 WBC (Bld) [Ratio] 0.0 % [facility] Platelet mean volume (Bld) [Entitic vol] 8.9 fL Low 9.0 - 12.7 fL [facility] Platelets (Bld) [#/Vol] 273 10*3/uL 140 - 440 10*3/uL [facility] RBC (Bld) [#/Vol] 4.20 10*6/uL 3.80 - 5.2 0 10*6/uL [facility] WBC (Bld) [#/Vol] 8.0 10*3/uL 3.6 - 10.7 10*3/uL [facility] CBC WITH AUTO DIFFERENTIALon 04-10-2024 Basophils (Bld) [#/Vol] 0.0 10*3/uL Normal 0.0-0.2 [facility] Comment on above: Performed By: #### L [id number] ####Shank Burnisher: ROSETTE ZHAO ([phone])[facility] ([facility])[address] [place] [address] Basophils/100 WBC (Bld) 0.4 % Normal 0.0-2.0 [facility] Comment on above: Performed By: #### L [id number] ####Shank Burnisher: ROSETTE ZHAO ([phone])[facility] ([facility])[address] [place] [address] Eosinophils (Bld) [#/Vol] 0.2 10*3/uL Normal 0.0-0.5 [facility] Comment on above: Performed By: #### L [id number] ####Shank Burnisher: ROSETTE ZHAO ([phone])[facility] ([facility])[address] [place] [address] Eosinophils/100 WBC (Bld) 2.4 % Normal 0.0-6.0 [facility] Comment on above: Performed By: #### L [id number] ####Shank Burnisher: ROSETTE ZHAO ([phone])[facility] ([facility])[address] [place] [address] Erythrocyte distribution width (RBC) [Ratio] 12.4 % Normal 11.5-15.0 [facility] Comment on above: Performed By: #### L [id number] ####Shank Burnisher: ROSETTE ZHAO ([phone])[facility] ([facility])[address] Hematocrit (Bld) [Volume fraction] 40.6 % Normal 35.0-47.0 [facility] Comment on above: Performed By: #### L [id number] ####Shank Burnisher: ROSETTE ZHAO ([phone])[facility] ([facility])[address] [place] [address] Hemoglobin (Bld) [Mass/Vol] 13.6 g/dL Normal 11.7-16.0 [facility] Comment on above: Performed By: #### L [id number] ####Shank Burnisher: ROSETTE ZHAO ([phone])[facility] ([facility])[address] [place] [address] IMMATURE GRANS % 1.0 % Normal 0.0-2.0 [facility] Comment on above: Performed By: #### L [id number] ####Shank Burnisher: ROSETTE ZHAO ([id number])[facility] [place] [address] IMMATURE GRANS ABSOLUTE 0.1 10*3/uL High <0.1 [facility] Comment on above: Performed By: #### L [id number] ####Shank Burnisher: ROSETTE ZHAO ([id number])[facility] ([facility])[address] [place] [address] Lymphocytes (Bld) [#/Vol] 2.4 10*3/uL Normal 1.0-4.3 [facility] Comment on above: Performed By: #### L [id number] ####Shank Burnisher: ROSETTE ZHAO ([phone])[facility] ([facility])[address] [place] [address] Lymphocytes/100 WBC (Bld) 29.6 % Normal 15.0-45.0 [facility] Comment on above: Performed By: #### L [id number] ####Shank Burnisher: ROSETTE ZHAO ([phone])[facility] ([facility])[address] MCH (RBC) [Entitic mass] 32.4 pg Normal 26.0-34.0 [facility] Comment on above: Performed By: #### L [id number] ####Shank Burnisher: ROSETTE ZHAO ([id number])[facility] ([facility])[address] MCHC 33.5 % Normal 30.5-36.0 [facility] Comment on above: Performed By: #### L [id number] ####Shank Burnisher: ROSETTE MONTALVOVIK ([phone])[facility]OVAL[facility] ([facility])[address] [place] [address] MCV (RBC) [Entitic vol] 96.7 fL Normal 77.0-99.0 [facility] Comment on above: Performed By: #### L [id number] ####Shank Burnisher: ROSETTE ZHAO ([phone])[facility] ([facility])[address] [place] [address] Monocytes (Bld) [#/Vol] 1.1 10*3/uL High 0.0-0.9 [facility] Comment on above: Performed By: #### L [id number] ####Shank Burnisher: ROSETTE ZHAO ([phone])[facility] ([facility])[address] [place] [address] [place] Monocytes/100 WBC (Bld) 14.0 % High 5.0-13.0 [facility] Comment on above: Performed By: #### L [id number] ####Shank Burnisher: ROSETTE ZHAO ([phone])[facility] ([facility])[address] [place] [address] NEUTROPHILS ABSOLUTE 4.2 10*3/uL Normal 1.8-7.5 [facility] Comment on above: Performed By: #### L [id number] ####Shank Burnisher: ROSETTE ZHAO ([phone])[facility] ([facility])[address] Neutrophils/100 WBC (Bld) 52.6 % Normal 38.0-82.0 [facility] Comment on above: Performed By: #### L [id number] ####Shank Burnisher: ROSETTE ZHAO ([id number])[facility] ([facility])[address] NRBC 0.0 /100 WBCs Normal 0.0-2.0 [facility] Comment on above: Performed By: #### L [id number] ####Shank Burnisher: ROSETTE ZHAO ([phone])[facility] ([facility])[address] Platelet mean volume (Bld) [Entitic vol] 8.9 fL Low 9.0-12.7 [facility] Comment on above: Performed By: #### L [id number] ####Shank Burnisher: ROSETTE ZHAO ([phone])[facility] ([facility])[address] [place] [address] [place] Platelets (Bld) [#/Vol] 273 10*3/uL Normal 140-440 [facility] Comment on above: Performed By: #### L [id number] ####Shank Burnisher: ROSETTE ZHAO ([phone])[facility] ([facility])[address] [place] [address] [place] RBC (Bld) [#/Vol] 4.20 10*6/uL Normal 3.80-5.20 [facility] Comment on above: Performed By: #### L [id number] ####Shank Burnisher: ROSETTE ZHAO ([phone])[facility] ([facility])[address] [place] [address] [place] WBC (Bld) [#/Vol] 8.0 10*3/uL Normal 3.6-10.7 [facility] Comment on above: Performed By: #### L [id number] ####Shank Burnisher: ROSETTE ZHAO ([phone])[facility] ([facility])[address] CKon 04-10-2024 CK [Catalytic activity/Vol] 29 U/L Low 30-170 [facility] Comment on above: Performed By: #### L [id number], [id number], LAB62, LAB17 ####Shank Burnisher: ROSETTE ZHAO ([phone])[facility] COMPLETE URINALYSISon 2023 BILIRUBIN, TOTAL PRESENCE IN URINE Negative Normal Negative [facility] Comment on above: Performed By: #### L [id number] ####Shank Burnisher: ROSETTE ZHAO ([phone])[facility])[address] Clarity (U) Turbid Abnormal Clear [facility] Comment on above: Performed By: #### L [id number] ####Shank Burnisher: ROSETTE ZHAO ([phone])[facility] [place] [address] Color (U) Colorless Normal Lt. Yellow [facility] Comment on above: Performed By: #### L [id number] ####Shank Burnisher: ROSETTE ZHAO ([phone])[facility] [place] [address] GLUCOSE (MG/DL) IN URINE Normal Normal Normal (<70 ) [facility] Comment on above: Performed By: #### L [id number] ####Shank Burnisher: ROSETTE ZHAO ([phone])[facility] [place] [address] HEMOGLOBIN PRESENCE IN URINE Negative Normal Negative [facility] Comment on above: Performed By: #### L [id number] ####Shank Burnisher: ROSETTE ZHAO ([phone])[facility] ([facility])[address] Ketones Ql (U) Negative Normal Negative [facility] Comment on above: Performed By: #### L [id number] ####Shank Burnisher: ROSETTE PAVEL ([phone])[facility] ([facility])[address] LEUKOCYTE ESTERASE PRESENCE IN URINE BY TEST STRIP Negative Normal Negative [facility] Comment on above: Performed By: #### L [id number] ####Shank Burnisher: ROSETTE PAVEL ([id number])[facility] ([facility])[address] NITRITE PRESENCE IN URINE Negative Normal Negative [facility] Comment on above: Performed By: #### L [id number] ####Shank Burnisher: ROSETTE HUMPHREYSJONNIE ([id number])[facility] ([facility])[address] pH (U) 7.0 [pH] Normal 5.0-8.0 [facility] Comment on above: Performed By: #### L [id number] ####Shank Burnisher: ROSETTE MONTALVOVIK ([phone])[facility] ([facility])[address] Protein (U) [Mass/Vol] Negative Normal Negative [facility] Comment on above: Performed By: #### L [id number] ####Shank Burnisher: ROSETTE MONTALVOVIK ([id number])[facility] ([facility])[address] Specific gravity (U) [Rel density] 1.009 Normal 1.005-1.030 [facility] Comment on above: Performed By: #### L AB347 ####Shank Burnisher: ROSETTE MONTALVOVIK ([id number])[facility] (SBHLAB)[address] [place] [address] [place] UROBILINOGEN (MG/DL) IN URINE Normal Normal Normal (0-1) [facility] Comment on above: Performed By: #### L AB347 ####Shank Burnisher: ROSETTE ZHAO ([id number])[facility] (SBHLAB)[address] COMPREHENSIVE METABOLIC PANE Hua 04-10-2024 Albumin [Mass/Vol] 3.1 g/dL Low 3.5-5.0 [facility] Comment on above: Performed By: #### L AB103, [id number], LAB62, LAB17 ####Shank Burnisher: ROSETTE ZHAO ([id number])[facility] ([facility])[address] ALP [Catalytic activity/Vol] 78 U/L Normal 38-126 [facility] Comment on above: Performed By: #### L AB103, [id number], LAB62, LAB17 ####Shank Burnisher: ROSETTE HZAO ([id number])[facility] ([facility])[address] ALT [Catalytic activity/Vol] 19 U/L Normal 0-34 [facility] Comment on above: Performed By: #### L AB103, [id number], LAB62, LAB17 ####Shank Burnisher: ROSETTE ZHAO ([id number])[facility] ([facility])[address] Anion gap [Moles/Vol] 6 mmol/L Normal 3-13 [facility] Comment on above: Performed By: #### L AB103, [id number], LAB62, LAB17 ####Shank Burnisher: ROSETTE ZHAO ([id number])[facility] ([facility])[address] AST [Catalytic activity/Vol] 24 U/L Normal 15-46 [facility] Comment on above: Performed By: #### L AB103, [id number], LAB62, LAB17 ####Shank Burnisher: ROSETTE ZHAO ([id number])[facility] ([facility])[address] Bilirubin [Mass/Vol] 0.4 mg/dL Normal 0.2-1.3 [facility] Comment on above: Performed By: #### L AB103, [id number], LAB62, LAB17 ####Shank Burnisher: ROSETTE ZHAO ([id number])[facility] ([facility]AB)[address] Calcium [Mass/Vol] 9.1 mg/dL Normal 8.4-10.4 [facility] Comment on above: Performed By: #### L [id number], [id number], [id number], LAB17 ####Shank Burnisher: ROSETTE ZHAO ([phone])[facility] ([facility])[address] Chloride [Moles/Vol] 105 mmol/L Normal 98-107 [facility] Comment on above: Performed By: #### L [id number], [id number], LAB62, LAB17 ####Shank Burnisher: ROSETTE ZHAO ([phone])[facility] ([facility])[address] CO2 [Moles/Vol] 24 mmol/L Normal 22-30 [facility] Comment on above: Performed By: #### L [id number], [id number], LAB62, LAB17 ####Shank Burnisher: ROSETTE ZHAO ([phone])[facility] ([facility])[address] Creatinine [Mass/Vol] 1.03 mg/dL Normal 0.52-1.04 [facility] Comment on above: Performed By: #### L [id number], [id number], LAB62, LAB17 ####Shank Burnisher: ROSETTE ZHAO ([id number])[facility] ([facility])[address] GLOMERULAR FILTRATION RATE ML/MIN/1.73 SQ M.PREDICTED 54.4 mL/min/1.73m*2 Low >60.0 [facility] Comment on above: Result Comment: Calc ulation based on the Chronic Kidney Disease Epidemiology Collaboration (CKD-EPI) equation refit without adjustment for race Performed By: #### Albert BERNARDO, [id number], [id number], LAB17 ####Shank Burnisher: ROSETTE ZHAO ([id number])[facility] Glucose [Mass/Vol] 94 mg/dL Normal 70-100 [facility] Comment on above: Performed By: #### L AB103, [id number], LAB62, LAB17 ####Shank Burnisher: ROSETTE ZHAO ([id number])[facility] Potassium [Moles/Vol] 4.4 mmol/L Normal 3.5-5.1 [facility] Comment on above: Performed By: #### Albert BERNARDO, [id number], [id number], LAB17 ####Shank Burnisher: ROSETTE ZHAO ([phone])[facility] Protein [Mass/Vol] 5.8 g/dL Low 6.3-8.2 [facility] Comment on above: Performed By: #### L AB103, [id number], LAB62, LAB17 ####Shank Burnisher: ROSETTE ZHAO ([id number])[facility] [place] [address] [place] Sodium [Moles/Vol] 135 mmol/L Normal 135-145 [facility] Comment on above: Performed By: #### L AB103, [id number], LAB62, LAB17 ####Shank Burnisher: ROSETTE ZHAO ([id number])[facility] [place] [address] [place] Urea nitrogen [Mass/Vol] 23 mg/dL High 7-17 [facility] Comment on above: Performed By: #### L AB103, [id number], LAB62, LAB17 ####Shank Burnisher: ROSETTE ZHAO ([id number])[facility] ([facility])[address] [place] [address] CT ABDOMEN PELVIS WO IV CONT RASTon 04-10-2024 CT ABDOMEN PELVIS WO IV CONTRAST Normal [facility] CT Abdomen WO contraston Patient Name: SOMMER [...] superior endplate with retropulsed bone producing approximately mlpm-gh-hjxoaiib spinal stenosis. Mild paraspinal soft tissue swelling. No other acute fractures identified. Lumbar spinal alignment is anatomic. There is moderate degenerative spinal stenosis at L4-5. [facility] [employer] Kathi Browne MD - 04/10/2024 Patient Name: SOMMER FRIEDMAN : 1940 Exam [...] superior endplate with retropulsed bone producing approximately bnfa-im-kvkiwavu spinal stenosis. Mild paraspinal soft tissue swelling. No other acute fractures identified. Lumbar spinal alignment is anatomic. There is moderate degenerative spinal stenosis at L4-5. IMPRESSION: 1. Acute incomplete burst fracture of the L1 superior endplate with mild vertebral height loss. Bony retropulsion produces nies-qm-keqdcrle spinal stenosis at the T12-L1 level. 2. No intra-abdominal traumatic injuries. 3. Moderate degenerative spinal stenosis at L4-5. 4. Severe atherosclerotic disease with probable high-grade stenosis of the iliac arteries and possibly the mesenteric and renal arteries. Report Dictated on Electronically Signed By: Kathi Browne MD Electronically Signed Date/Time: 04/10/2024 3:03 PM EDT [facility] Radiology Study observation (narrative) [facility] Jesus crisostomo CT LUMBAR SPINE WO IV CONTRA Myke 04-10-2024 CT LUMBAR SPINE WO IV CONTRAST Normal [facility] CT Lumbar spine WO contrasto n 04-10-2024 Patient Name: SOMMER FRIEDMAN : 1940 Exam Date/Time: 04/10/2024 14:26 Procedure: CT LUMBAR [...] superior endplate with retropulsed bone producing approximately ubuh-kd-dlqcjcag spinal stenosis. Mild paraspinal soft tissue swelling. No other acute fractures identified. Lumbar spinal alignment is anatomic. There is moderate degenerative spinal stenosis at L4-5. [facility] Kathi Browne MD - 04/10/2024 Patient Name: SOMMER FRIEDMAN : 1940 Exam Date/Time: 04/10/2024 14:26 Procedure: CT LUMBAR [...] superior endplate with retropulsed bone producing approximately fpvb-uy-yvmfmuoi spinal stenosis. Mild paraspinal soft tissue swelling. No other acute fractures identified. Lumbar spinal alignment is anatomic. There is moderate degenerative spinal stenosis at L4-5. IMPRESSION: 1. Acute incomplete burst fracture of the L1 superior endplate with mild vertebral height loss. Bony retropulsion produces eoka-nt-aenbewpg spinal stenosis at the T12-L1 level. 2. No intra-abdominal traumatic injuries. 3. Moderate degenerative spinal stenosis at L4-5. 4. Severe atherosclerotic disease with probable high-grade stenosis of the iliac arteries and possibly the mesenteric and renal arteries. Report Dictated on Electronically Signed By: Kathi Browne MD Electronically Signed Date/Time: 04/10/2024 3:03 PM EDT [facility] Radiology Study observation (narrative) [facility] metabolic 1998 panelon 04-10-2024 Albumin [Mass/Vol] 3.1 g/dL Low 3.5 - 5.0 g/dL [facility] ALP [Catalytic activity/Vol] 78 U/L 38 - 126 U/L [facility] ALT [Catalytic activity/Vol] 19 U/L 0 - 34 U/L [facility] Anion gap [Moles/Vol] 6 mmol/L 3 - 13 mmol/L [facility] AST [Catalytic activity/Vol] 24 U/L 15 - 46 U/L [facility] Bilirubin [Mass/Vol] 0.4 mg/dL 0.2 - 1 .3 mg/dL [facility] Calcium [Mass/Vol] 9.1 mg/dL 8.4 - 10. 4 mg/dL [facility] Chloride [Moles/Vol] 105 mmol/L 98 - 10 7 mmol/L [facility] CO2 [Moles/Vol] 24 mmol/L 22 - 30 mmol/L [facility] Creatinine [Mass/Vol] 1.03 mg/dL 0.52 - 1.04 mg/dL [facility] GFR/1.73 sq M.predicted (S/P/Bld) [Vol rate/Area] 54.4 mL/min Low - PINF [facility] Comment on above: Calculation based on the Chronic Kidney Disease Epidemiology Collaboration (CKD-EPI) equation refit without adjustment for race Glucose [Mass/Vol] 94 mg/dL 70 - 100 mg/dL [facility] Potassium [Moles/Vol] 4.4 mmol/L 3.5 - 5.1 mmol/L [facility] Protein [Mass/Vol] 5.8 g/dL Low 6.3 - 8.2 g/dL [facility] Sodium [Moles/Vol] 135 mmol/L 135 - 145 mmol/L [facility] Urea nitrogen [Mass/Vol] 23 mg/dL High 7 - 17 mg/d L [facility] Consulton 04-10-2024 Consult Normal [facility] ECG 12-LEADon 04-10-2024 ECG 12-LEAD Normal [facility] ED Nursing Noteon 04-10-2024 ED Nursing Note NEOAS arrives and report given. Patient loaded and sent. Renny Mahmood RN 04/10/24 [id number] Normal [facility] ED Nursing Note Report called to [address] for room 509-A. Renny Mahmood RN 04/10/24 [id number] Normal [facility] ED Nursing Note Pt fall was on 03/29. Pt had 2 XRs and both negative. Sugar Adler RN 04/10/24 140 Normal [facility] ED Nursing Note Patient arrives via ambulance from SNF due to lower back pain caused by a fall several days ago. Patient has dementia and is a poor historian. Normal [facility] ED Provider Noteon ED Provider Note Normal [facility] Laboratory - Chemistry and C hemistry - challengeon 04-10-2024 Troponin I.cardiac [Mass/Vol] ng/mL NINF - 0.034 ng/mL [facility] CK [Catalytic activity/Vol] 29 U/L Low 30 - 170 U/L [facility] Magnesium [Mass/Vol] 2.0 mg/dL 1.6 - 2 .3 mg/dL [facility] MAGNESIUMon 04-10-2024 Magnesium [Mass/Vol] 2.0 mg/dL Normal 1.6-2.3 [facility] Comment on above: Performed By: #### L AB103, [id number], LAB62, LAB17 ####Shank Burnisher: ROSETTE ZHAO ([phone])[facility] ([facility])[address] [place] [address] Magnesium [Mass/Vol]on 04-10 Interpretation and review of laboratory results Normal [facility] No Panel Informationon 04-10 P [place] 46 degrees [facility] FL Interval 146 ms [facility] QRS [place] -27 degrees [facility] QRSD Interval 77 ms [facility] h QT Interval 583 ms [facility] QTC Interval 519 ms [facility] T Wave [place] 69 degrees [facility] Sinus bradycardia Left ventricular hypertrophy Anterior [...] On 04-10-2024 15:24:13 EDT by Dakota Dempsey [facility] Interpretation and review of laboratory results Abnormal [facility] 1. Acute incomplete burst fracture of the L1 superior endplate with mild vertebral height loss. Bony retropulsion produces dfwu-cp-awpqqtns spinal stenosis at the T12-L1 level. 2. No intra-abdominal traumatic injuries. 3. Moderate degenerative spinal stenosis at L4-5. 4. Severe atherosclerotic disease with probable high-grade stenosis of the iliac arteries and possibly the mesenteric and renal arteries. Report Dictated on Electronically Signed By: Kathi Browne MD Electronically Signed Date/Time: 04/10/2024 3:03 PM EDT [facility] No Panel InformationOrdered By: Kathi Browne on 04-10-2024 [facility] Work Phone: TROPONIN, WITH SERIAL REFLEX on 04-10-2024 Troponin I.cardiac [Mass/Vol] ng/mL Normal <0.034 [facility] Comment on above: Result Comment: HUSSAIN Bhatt COMMENTS:Patients with high levels of Biotin oral intake (ie >5 mg/day) may have falsely decreased Troponin levels. Performed By: #### L AB103, [id number], LAB62, LAB17 ####Shank Burnisher: ROSETTE ZHAO ([id number])[facility] ([facility])[address] [place] [address] Troponin I.cardiac [Mass/Vol ]on 04-10-2024 Interpretation and review of laboratory results Normal [facility] Patients with high levels of Biotin oral intake (ie >5 mg/day) may have falsely decreased Troponin levels. [facility] Urinalysis complete panel (U )Ordered By: Atilio Chaparro on 04-10-2024 Bilirubin Ql (U) Negative Negative mg/dL [facility] Clarity (U) Turbid Abnormal Clear [facility] Color (U) Colorless Lt. Yellow [facility] Glucose Ql (U) Normal Normal (<70) mg/dL [facility] Hemoglobin Ql (U) Negative Negative mg/dL [facility] Interpretation and review of laboratory results Abnormal [facility] Ketones (U) [Mass/Vol] Negative Negat jaciel mg/dL [facility] Leukocyte esterase Test strip Ql (U) Negative Negative Cathy/uL [facility] Nitrite Ql (U) Negative Negative [facility] pH (U) 7.0 [pH] 5.0 - 8.0 pH [facility] Protein (U) [Mass/Vol] Negative Negat jaciel mg/dL [facility] Specific gravity (U) [Rel density] 1.009 1.005 - 1.030 [facility] Urobilinogen (U) [Mass/Vol] Normal Normal (0-1) mg/dL [facility] Vital signson 04-10-2024 Heart rate 48 /min bpm [facility] MR Brain WO and W contrast I Von 11-27-2023 Patchy and confluent areas of hyperintense signal on T2-weighted and FLAIR images is nonspecific but likely represent moderate chronic microvascular ischemia. Report Dictated on Electronically Signed By: Jt Munson MD Electronically Signed Date/Time: 11/27/2023 8:37 AM [facility] Patient Name: SOMMER FRIEDMAN [facility] 1940 [id number] Exam Date/Time: 11/22/2023 16:03 Procedure: MR BRAIN [...] cells and middle ear cavities are clear. [facility] Jt Munson MD - 11/27/2023 Patient Name: SOMMER FRIEDMAN : 1940 [id number] Exam Date/Time: 11/22/2023 16:03 Procedure: MR BRAIN [...] Electronically Signed Date/Time: 11/27/2023 8:37 AM EDT [facility] [employer] MR Brain WO and W contrast I VOrdered By: Jt Munson on 11-27-2023 [facility] [employer] Work Phone: MR Brain WO and W contrast I Von 11-22-2023 Radiology Study observation (narrative) [facility] alth Basophil percentageOrdered B y: Kathi Juarez on 11-17-2023 Chloride [Moles/Vol] 108 mmol/L 98-107 [facility] Glucose [Mass/Vol] 100 mg/dL 74-106 [facility] Comment on above: Fasting Glucose resu lt from 100 to 125 mg/dL suggests IMPAIRED HOMEOSTASIS per A.D.A. criteria. Potassium [Moles/Vol] 4.2 mmol/L 3.5-5.1 [facility] Sodium [Moles/Vol] 137 mmol/L 136-145 [facility] Laboratory - Chemistry and C hemistry - challengeOrdered By: Kathi Juarez on 11-17-2023 CO2 [Moles/Vol] 24.0 mmol/L 21.0-32.0 [facility] Urea nitrogen/Creatinine [Mass ratio] 20.4 mg/mg 10-20 [facility] No Panel InformationOrdered By: Kathi Juarez on 11-17-2023 Estimated GFR (MDRD) Amer 70 mL/min >60 [facility] Comment on above: GFR Calc Estimated GFR (MDRD) Non-Af Amer 58 mL/min >60 [facility] Comment on above: Non- GFR Calc Serum or plasma calcium adam urement (mass/volume)Ordered By: Kathi Juarez on 11-17-2023 Calcium [Mass/Vol] 10.1 mg/dL 8.5-10.1 [facility] Serum or plasma creatinine m easurement (mass/volume)Ordered By: Kathi Juarez on 11-17-2023 Creatinine [Mass/Vol] 0.98 mg/dL 0.55-1.02 [facility] Comment on above: The validity of the calculated GFR & GFRAA in patients over 70 years has not been determined. Clinical correlation is essential. Serum or plasma urea nitroge n measurement (mass/volume)Ordered By: Kathi Juarez on 11-17-2023 Urea nitrogen [Mass/Vol] 20 mg/dL 7-18 [facility] Thin prep Papanicolaou smear with manual screeningOrdered By: Kathi Juarez on 11-17-2023 Thin prep Papanicolaou smear with manual screening 5 5-15 [facility] Serum or plasma thyroid stim ulating hormone (TSH) measurement (units/volume)Ordered By: Kathi Juarez on 11-06-2023 TSH Qn 0.32 uIU/mL 0.358-3.74 [facility] Serum or plasma thyroxine (T 4) measurement (mass/volume)Ordered By: Kathi Juarez on 11-06-2023 T4 [Mass/Vol] 9.1 ug/dL 4.8-13.9 [facility] Serum or plasma triiodothyro nine measurement by immunoassay (mass/volume)Ordered By: Kathi Juarez on 11-06-2023 T3 IA [Mass/Vol] 0.59 ng/mL 0.6-1.81 [facility] Basophil percentageOrdered B y: Kathi Juarez on 11-02-2023 Chloride [Moles/Vol] 107 mmol/L 98-107 [facility] Glucose [Mass/Vol] 97 mg/dL 74-106 [facility] Hemoglobin (Bld) [Mass/Vol] 13.2 g/dL 12.0-15.0 [facility] Potassium [Moles/Vol] 4.1 mmol/L 3.5-5.1 [facility] Sodium [Moles/Vol] 138 mmol/L 136-145 [facility] WBC (Bld) [#/Vol] 10.6 10*3/uL 4.4-11.0 [facility] Determination of erythrocyte mean corpuscular volume (MCV)Ordered By: Kathi Juarez on 11-02-2023 MCV (RBC) [Entitic vol] 94.4 fL 81-99 [facility] Erythrocyte distribution wid th ratioOrdered By: Kathi Juarez on 11-02-2023 Erythrocyte distribution width (RBC) [Ratio] 11.9 % 11.6-14.6 [facility] Erythrocyte distribution wid th standard deviationOrdered By: Kathi Juarez on 11-02-2023 Erythrocyte distribution width (RBC) [Entitic vol] 41.3 fL 35.1-43.9 [facility] Erythrocyte sedimentation ra teOrdered By: Kathi Juarez on 11-02-2023 ESR (Bld) [Velocity] 44 mm/h 0-30 [facility] Hematocrit Auto (Bld) [Volum e fraction]Ordered By: Kathi Juarez on 11-02-2023 Hematocrit (Bld) [Volume fraction] 38.8 % 37-47 [facility] Laboratory - Chemistry and C hemistry - challengeOrdered By: Kathi Juarez on 11-02-2023 CO2 [Moles/Vol] 23.0 mmol/L 21.0-32.0 [facility] Urea nitrogen/Creatinine [Mass ratio] 28.4 mg/mg 10-20 [facility] Laboratory - Hematology and Cell countsOrdered By: Kathi Juarez on 11-02-2023 MCH (RBC) [Entitic mass] 32.1 pg 27.0-32.0 [facility] MCHC (RBC) [Mass/Vol] 34.0 g/dL 32-36 [facility] Platelet mean volume (Bld) [Entitic vol] 9.5 fL 6.2-12.0 [facility] Platelets (Bld) [#/Vol] 372 10*3/uL 150-450 [facility] No Panel InformationOrdered By: Kathi Juarez on 11-02-2023 Estimated GFR (MDRD) Amer 102 mL/min >60 [facility] Comment on above: GFR Calc Estimated GFR (MDRD) Non-Af Amer 85 mL/min >60 [facility] Comment on above: Non- GFR Calc RBC Auto (Bld) [#/Vol]Ordere d By: Kathi Juarez on 11-02-2023 RBC (Bld) [#/Vol] 4.11 10*6/uL 4.2-5.4 [facility] Serum or plasma calcium adam urement (mass/volume)Ordered By: Kathi Juarez on 11-02-2023 Calcium [Mass/Vol] 10.0 mg/dL 8.5-10.1 [facility] Serum or plasma creatinine m easurement (mass/volume)Ordered By: Kathi Juarez on 11-02-2023 Creatinine [Mass/Vol] 0.70 mg/dL 0.55-1.02 [facility] Comment on above: The validity of the calculated GFR & GFRAA in patients over 70 years has not been determined. Clinical correlation is essential. Serum or plasma urea nitroge n measurement (mass/volume)Ordered By: Kathi Juarez on 11-02-2023 Urea nitrogen [Mass/Vol] 20 mg/dL 7-18 [facility] Serum or plasma uric acid me asurement (mass/volume)Ordered By: Kathi Juarez on 11-02-2023 Urate [Mass/Vol] 3.0 mg/dL 2.6-6.0 [facility] Comment on above: The drugs N-Acetylcy steine and Metamizole may falsely depress this assay. Serum procalcitonin measurem entOrdered By: Kathi Juarez on 11-02-2023 Procalcitonin [Mass/Vol] ng/mL 0.00-0.09 [facility] Comment on above: A procalcitonin (PCT ) [...] Papanicolaou smear with manual screening 8 5-15 [facility] Serum or plasma thyroid stim ulating hormone (TSH) measurement (units/volume)Ordered By: Kathi Juarez on 09-21-2023 TSH Qn 0.14 uIU/mL 0.358-3.74 [facility] Serum or plasma thyroxine (T 4) measurement (mass/volume)Ordered By: Kathi Juarez on 09-21-2023 T4 [Mass/Vol] 12.1 ug/dL 4.8-13.9 [facility] Serum or plasma triiodothyro nine measurement by immunoassay (mass/volume)Ordered By: Kathi Juarez on 09-21-2023 T3 IA [Mass/Vol] 1.15 ng/mL 0.6-1.81 [facility] Basophil percentageOrdered B y: Kathi Juarez on 08-16-2023 Chloride [Moles/Vol] 108 mmol/L 98-107 [facility] Glucose [Mass/Vol] 100 mg/dL 74-106 [facility] Comment on above: Fasting Glucose resu lt from 100 to 125 mg/dL suggests IMPAIRED HOMEOSTASIS per A.D.A. criteria. Potassium [Moles/Vol] 4.0 mmol/L 3.5-5.1 [facility] Sodium [Moles/Vol] 138 mmol/L 136-145 [facility] Laboratory - Chemistry and C hemistry - challengeOrdered By: Kathi Juarez on 08-16-2023 CO2 [Moles/Vol] 25.0 mmol/L 21.0-32.0 [facility] Urea nitrogen/Creatinine [Mass ratio] 27.2 mg/mg 10-20 [facility] No Panel InformationOrdered By: Kathi Juarez on 08-16-2023 Estimated GFR (MDRD) Amer 87 mL/min >60 [facility] Comment on above: GFR Calc Estimated GFR (MDRD) Non-Af Amer 72 mL/min >60 [facility] Comment on above: Non- GFR Calc Serum or plasma calcium adam urement (mass/volume)Ordered By: Kathi Juarez on 08-16-2023 Calcium [Mass/Vol] 9.9 mg/dL 8.5-10.1 [facility] Serum or plasma creatinine m easurement (mass/volume)Ordered By: Kathi Juarez on 08-16-2023 Creatinine [Mass/Vol] 0.81 mg/dL 0.55-1.02 [facility] Comment on above: The validity of the calculated GFR & GFRAA in patients over 70 years has not been determined. Clinical correlation is essential. Serum or plasma urea nitroge n measurement (mass/volume)Ordered By: Kathi Juarez on 08-16-2023 Urea nitrogen [Mass/Vol] 22 mg/dL 7-18 [facility] Thin prep Papanicolaou smear with manual screeningOrdered By: Kathi Juarez on 08-16-2023 Thin prep Papanicolaou smear with manual screening 5 5-15 [facility] Laboratory - Chemistry and C hemistry - challengeOrdered By: Kathi Juarez on 07-21-2023 Cobalamin (Vitamin B12) [Mass/Vol] 1516 pg/mL 211-911 [facility] Basophil percentageOrdered B y: Kathi Juarez on 07-17-2023 Chloride [Moles/Vol] 107 mmol/L 98-107 [facility] Glucose [Mass/Vol] 95 mg/dL 74-106 [facility] Potassium [Moles/Vol] 3.7 mmol/L 3.5-5.1 [facility] Sodium [Moles/Vol] 139 mmol/L 136-145 [facility] WBC (Bld) [#/Vol] 7.1 10*3/uL 4.4-11.0 [facility] Blood erythrocytes count (nu mber/volume)Ordered By: Kathi Juarez on 07-17-2023 RBC (Bld) [#/Vol] 3.95 10*6/uL 4.2-5.4 [facility] Blood hemoglobin measurement (mass/volume)Ordered By: Kathi Juarez on 07-17-2023 Hemoglobin (Bld) [Mass/Vol] 12.7 g/dL 12.0-15.0 [facility] Blood platelet mean volumeOr dered By: Kathi Juarez on 07-17-2023 Platelet mean volume (Bld) [Entitic vol] 9.2 fL 6.2-12.0 [facility] Determination of erythrocyte mean corpuscular volume (MCV)Ordered By: Kathi Juarez on 07-17-2023 MCV (RBC) [Entitic vol] 100.0 fL 81-99 [facility] Hematocrit Auto (Bld) [Volum e fraction]Ordered By: Kathi Juarez on 07-17-2023 Hematocrit (Bld) [Volume fraction] 39.5 % 37-47 [facility] Laboratory - Chemistry and C hemistry - challengeOrdered By: Kathi Juarez on 07-17-2023 CO2 [Moles/Vol] 27.0 mmol/L 21.0-32.0 [facility] Urea nitrogen/Creatinine [Mass ratio] 26.1 mg/mg 10-20 [facility] Laboratory - Hematology and Cell countsOrdered By: Kathi Juarez on 07-17-2023 Erythrocyte distribution width (RBC) [Entitic vol] 47.0 fL 35.1-43.9 [facility] Erythrocyte distribution width (RBC) [Ratio] 12.6 % 11.6-14.6 [facility] MCH (RBC) [Entitic mass] 32.2 pg 27.0-32.0 [facility] MCHC Auto (RBC) [Mass/Vol]Or dered By: Kathi Juarez on 07-17-2023 MCHC (RBC) [Mass/Vol] 32.2 g/dL 32-36 [facility] No Panel InformationOrdered By: Kathi Juarez on 07-17-2023 Estimated GFR (MDRD) Amer 88 mL/min >60 [facility] Comment on above: GFR Calc Estimated GFR (MDRD) Non-Af Amer 73 mL/min >60 [facility] Comment on above: Non- GFR Calc Platelets bldOrdered By: Sarthak Juarez on 07-17-2023 Platelets (Bld) [#/Vol] 337 10*3/uL 150-450 [facility] Serum or plasma calcium adam urement (mass/volume)Ordered By: Kathi Juarez on 07-17-2023 Calcium [Mass/Vol] 9.7 mg/dL 8.5-10.1 [facility] Serum or plasma creatinine m easurement (mass/volume)Ordered By: Kathi Juarez on 07-17-2023 Creatinine [Mass/Vol] 0.80 mg/dL 0.55-1.02 [facility] Comment on above: The validity of the calculated GFR & GFRAA in patients over 70 years has not been determined. Clinical correlation is essential. Serum or plasma urea nitroge n measurement (mass/volume)Ordered By: Kathi Juarez on 07-17-2023 Urea nitrogen [Mass/Vol] 21 mg/dL 7-18 [facility] Thin prep Papanicolaou smear with manual screeningOrdered By: Kathi Juarez on 07-17-2023 Thin prep Papanicolaou smear with manual screening 5 5-15 [facility] Laboratory - Chemistry and C hemistry - challengeOrdered By: Kathi Juarez on 07-03-2023 T4 [Mass/Vol] 8.8 ug/dL 4.8-13.9 [facility] No Panel InformationOrdered By: Kathi Juarez on 07-03-2023 Thyroid Stimulating Hormone (TSH) 1.44 uIU/mL 0.358-3.74 [facility] Total Triiodothyronine 0.86 ng/mL 0.6-1.81 [facility] Basophil percentageOrdered B y: Kathi Juarez on 06-26-2023 Chloride [Moles/Vol] 106 mmol/L 98-107 [facility] Glucose [Mass/Vol] 97 mg/dL 74-106 [facility] Potassium [Moles/Vol] 4.2 mmol/L 3.5-5.1 [facility] Sodium [Moles/Vol] 139 mmol/L 136-145 [facility] Laboratory - Chemistry and C hemistry - challengeOrdered By: Kathi Juarez on 06-26-2023 CO2 [Moles/Vol] 30.0 mmol/L 21.0-32.0 [facility] Urea nitrogen/Creatinine [Mass ratio] 29.1 mg/mg 10-20 [facility] No Panel InformationOrdered By: Kathi Juarez on 06-26-2023 Estimated GFR (MDRD) Amer 90 mL/min >60 [facility] Comment on above: GFR Calc Estimated GFR (MDRD) Non-Af Amer 74 mL/min >60 [facility] Comment on above: Non- GFR Calc Serum or plasma calcium adam urement (mass/volume)Ordered By: Kathi Juarez on 06-26-2023 Calcium [Mass/Vol] 9.7 mg/dL 8.5-10.1 [facility] Serum or plasma creatinine m easurement (mass/volume)Ordered By: Kathi Juarez on 06-26-2023 Creatinine [Mass/Vol] 0.79 mg/dL 0.55-1.02 [facility] Comment on above: The validity of the calculated GFR & GFRAA in patients over 70 years has not been determined. Clinical correlation is essential. Serum or plasma urea nitroge n measurement (mass/volume)Ordered By: Kathi Juarez on 06-26-2023 Urea nitrogen [Mass/Vol] 23 mg/dL 7-18 [facility] Thin prep Papanicolaou smear with manual screeningOrdered By: Kathi Juarez on 06-26-2023 Thin prep Papanicolaou smear with manual screening 3 5-15 [facility] Basophil percentageOrdered B y: Kathi Juarez on 06-01-2023 Chloride [Moles/Vol] 110 mmol/L 98-107 [facility] Glucose [Mass/Vol] 101 mg/dL 74-106 [facility] Comment on above: Fasting Glucose resu lt from 100 to 125 mg/dL suggests IMPAIRED HOMEOSTASIS per A.D.A. criteria. Potassium [Moles/Vol] 4.2 mmol/L 3.5-5.1 [facility] Sodium [Moles/Vol] 141 mmol/L 136-145 [facility] Laboratory - Chemistry and C hemistry - challengeOrdered By: Kathi Juarez on 06-01-2023 CO2 [Moles/Vol] 27.0 mmol/L 21.0-32.0 [facility] Urea nitrogen/Creatinine [Mass ratio] 33.3 mg/mg 10-20 [facility] No Panel InformationOrdered By: Kathi Juarez on 06-01-2023 Estimated GFR (MDRD) Amer 91 mL/min >60 [facility] Comment on above: GFR Calc Estimated GFR (MDRD) Non-Af Amer 75 mL/min >60 [facility] Comment on above: Non- GFR Calc Serum or plasma calcium adam urement (mass/volume)Ordered By: Kathi Juarez on 06-01-2023 Calcium [Mass/Vol] 9.7 mg/dL 8.5-10.1 [facility] Serum or plasma creatinine m easurement (mass/volume)Ordered By: Kathi Juarez on 06-01-2023 Creatinine [Mass/Vol] 0.78 mg/dL 0.55-1.02 [facility] Comment on above: The validity of the calculated GFR & GFRAA in patients over 70 years has not been determined. Clinical correlation is essential. Serum or plasma urea nitroge n measurement (mass/volume)Ordered By: Kathi Juarez on 06-01-2023 Urea nitrogen [Mass/Vol] 26 mg/dL 7-18 [facility] Thin prep Papanicolaou smear with manual screeningOrdered By: Kathi Juarez on 06-01-2023 Thin prep Papanicolaou smear with manual screening 4 5-15 [facility] Basophil percentageOrdered B y: Kathi Juarez on 05-24-2023 Bilirubin [Mass/Vol] 0.30 mg/dL 0.20-1.00 [facility] Comment on above: For patients on eltr ombopag therapy, use of Dimension [place] TBIL is not recommended. Chloride [Moles/Vol] 109 mmol/L 98-107 [facility] Cholesterol [Mass/Vol] 172 mg/dL <200 [facility] Comment on above: <200 mg/dL Desirable 200-240 mg/dL Borderline >240 mg/dL High Risk Glucose [Mass/Vol] 91 mg/dL 74-106 [facility] Potassium [Moles/Vol] 3.2 mmol/L 3.5-5.1 [facility] Protein [Mass/Vol] 6.8 g/dL 6.4-8.2 [facility] Sodium [Moles/Vol] 140 mmol/L 136-145 [facility] Triglyceride [Mass/Vol] 57 mg/dL <199 [facility] Comment on above: The drugs N-Acetylcy steine and Metamizole may falsely depress this assay.Serum Triglycerides Reference Interval Normal <150 mg/dL Borderline high 150 - 199 mg/dL High 200 - 499 mg/dL Very High > or = 500 mg/dL WBC (Bld) [#/Vol] 6.9 10*3/uL 4.4-11.0 [facility] Blood erythrocytes count (nu mber/volume)Ordered By: Kathi Juarez on 05-24-2023 RBC (Bld) [#/Vol] 3.61 10*6/uL 4.2-5.4 [facility] Blood hemoglobin measurement (mass/volume)Ordered By: Kathi Juarez on 05-24-2023 Hemoglobin (Bld) [Mass/Vol] 11.7 g/dL 12.0-15.0 [facility] Blood platelet mean volumeOr dered By: Kathi Juarez on 05-24-2023 Platelet mean volume (Bld) [Entitic vol] 9.3 fL 6.2-12.0 [facility] Determination of erythrocyte mean corpuscular volume (MCV)Ordered By: Kathi Juarez on 05-24-2023 MCV (RBC) [Entitic vol] 99.4 fL 81-99 [facility] Hematocrit Auto (Bld) [Volum e fraction]Ordered By: Kathi Juarez on 05-24-2023 Hematocrit (Bld) [Volume fraction] 35.9 % 37-47 [facility] Laboratory - Chemistry and C hemistry - challengeOrdered By: Kathi Juarez on 05-24-2023 ALP [Catalytic activity/Vol] 84 U/L 45-117 [facility] ALT [Catalytic activity/Vol] 15 U/L 13-56 [facility] CO2 [Moles/Vol] 26.0 mmol/L 21.0-32.0 [facility] Globulin (S) [Mass/Vol] 3.9 g/dL 2.2-4.2 [facility] Urea nitrogen/Creatinine [Mass ratio] 23.9 mg/mg 10-20 [facility] Laboratory - Hematology and Cell countsOrdered By: Kathi Juarez on 05-24-2023 Erythrocyte distribution width (RBC) [Entitic vol] 48.2 fL 35.1-43.9 [facility] Erythrocyte distribution width (RBC) [Ratio] 13.2 % 11.6-14.6 [facility] MCH (RBC) [Entitic mass] 32.4 pg 27.0-32.0 [facility] MCHC Auto (RBC) [Mass/Vol]Or dered By: Kathi Juarez on 05-24-2023 MCHC (RBC) [Mass/Vol] 32.6 g/dL 32-36 [facility] No Panel InformationOrdered By: Kathi Juarez on 05-24-2023 Estimated GFR (MDRD) Amer 95 mL/min >60 [facility] Comment on above: GFR Calc Estimated GFR (MDRD) Non-Af Amer 79 mL/min >60 [facility] Comment on above: Non- GFR Calc Thyroid Stimulating Hormone (TSH) 0.39 uIU/mL 0.358-3.74 [facility] Platelets bldOrdered By: Sarthak Juarez on 05-24-2023 Platelets (Bld) [#/Vol] 311 10*3/uL 150-450 [facility] Serum or plasma albumin adam urement (mass/volume)Ordered By: Kathi Juarez on 05-24-2023 Albumin [Mass/Vol] 2.9 g/dL 3.2-5.0 [facility] Serum or plasma albumin/glob ulin mass ratioOrdered By: Kathi Juarez on 05-24-2023 Albumin/Globulin [Mass ratio] 0.7 {ratio} 0.9-2.4 [facility] Serum or plasma calcium adam urement (mass/volume)Ordered By: Kathi Juarez on 05-24-2023 Calcium [Mass/Vol] 9.4 mg/dL 8.5-10.1 [facility] Serum or plasma cholesterol in HDL measurement (mass/volume)Ordered By: Kathi Juarez on 05-24-2023 Cholesterol in HDL [Mass/Vol] 53 mg/dL >40 [facility] Comment on above: The drugs N-Acetylcy steine and Metamizole may falsely depress this assay. Reference Range HDL <40 mg/dL Low HDL Cholesterol HDL >or= 60 mg/dL High HDL Cholesterol Serum or plasma cholesterol in VLDL measurement (mass/volume)Ordered By: Kathi Juarez on 05-24-2023 Cholesterol in VLDL [Mass/Vol] 11 mg/dL 5-40 [facility] Serum or plasma creatinine m easurement (mass/volume)Ordered By: Kathi Juarez on 05-24-2023 Creatinine [Mass/Vol] 0.75 mg/dL 0.55-1.02 [facility] Comment on above: The validity of the calculated GFR & GFRAA in patients over 70 years has not been determined. Clinical correlation is essential. Serum or plasma low density lipoprotein (LDL) cholesterol measurement (mass/volume)Ordered By: Kathi Juarez on 05-24-2023 Cholesterol in LDL [Mass/Vol] 108 mg/dL 0-130 [facility] Serum or plasma urea nitroge n measurement (mass/volume)Ordered By: Kathi Juarez on 05-24-2023 Urea nitrogen [Mass/Vol] 18 mg/dL 7-18 [facility] Thin prep Papanicolaou smear with manual screeningOrdered By: Kathi Juarez on 05-24-2023 Thin prep Papanicolaou smear with manual screening 19 U/L 15-37 [facility] Thin prep Papanicolaou smear with manual screening 5 5-15 [facility] Vital Signs Date Time Vital Sign Value Performing Clinician Faci nikitay 02-18-2025 15:27-0400 Body height 162.6 cm Ag Meng MD Work Phone: [facility] [employer] 02-18-2025 15:27-0400 Body mass index (BMI) [Ratio] 25.75 kg/m2 Ag Meng MD Work Phone: [facility] [employer] 02-18-2025 15:27-0400 Body weight 68.04 kg Ag Meng MD Work Phone: [facility] [employer] 02-18-2025 14:30-0400 Diastolic blood pressure 92 mm[Hg] Ag Meng MD Work Phone: [facility] [employer] 02-18-2025 14:30-0400 Heart rate 94 /min Ag Meng MD Work Phone: [facility] [employer] 02-18-2025 14:30-0400 Respiratory rate 18 /min Ag Meng MD Work Phone: [employer] 02-18-2025 14:30-0400 SaO2% (BldA) [Mass fraction] 96 % Ag Meng MD Work Phone: [employer] 02-18-2025 14:30-0400 Systolic blood pressure 132 mm[Hg] Ag Meng MD Work Phone: [employer] 02-18-2025 09:27-0400 Body temperature 96.69 [degF] Ag Meng MD Work Phone: [employer] 01-08-2025 07:20-0400 Body temperature 97.39 [degF] Luana Trinidad DO Work Phone: [employer] 01-08-2025 07:20-0400 Diastolic blood pressure 89 mm[Hg] Luana Trinidad DO Work Phone: [employer] 01-08-2025 07:20-0400 Heart rate 89 /min Luana Trinidad DO Work Phone: [employer] 01-08-2025 07:20-0400 Respiratory rate 18 /min Luana Trinidad DO Work Phone: [employer] 01-08-2025 07:20-0400 SaO2% (BldA) [Mass fraction] 88 % Luana Trinidad DO Work Phone: [employer] 01-08-2025 07:20-0400 Systolic blood pressure 147 mm[Hg] Luana Trinidad DO Work Phone: [employer] 01-06-2025 00:03-0400 Body height 165.1 cm Luana Trinidad DO Work Phone: [employer] 01-06-2025 00:03-0400 Body mass index (BMI) [Ratio] 24.13 kg/m2 Luana Trinidad DO Work Phone: [employer] 01-06-2025 00:03-0400 Body weight 65.77 kg Luana Trinidad DO Work Phone: [employer] 11-19-2024 13:02-0400 Body height 162.6 cm Tevin Conner MD Work Phone: [facility] [employer] 11-19-2024 13:02-0400 Body mass index (BMI) [Ratio] 22.66 kg/m2 Tevin Conner MD Work Phone: [facility] [employer] 11-19-2024 13:02-0400 Body weight 59.88 kg Tevin Conner MD Work Phone: [facility] [employer] 11-19-2024 13:02-0400 Diastolic blood pressure 70 mm[Hg] Tevin Conner MD Work Phone: [facility] [employer] 11-19-2024 13:02-0400 Heart rate 86 /min Tevin Conner MD Work Phone: [facility] [employer] 11-19-2024 13:02-0400 Respiratory rate 16 /min Tevin Conner MD Work Phone: [facility] [employer] 11-19-2024 13:02-0400 SaO2% (BldA) [Mass fraction] 97 % Tevin Conner MD Work Phone: [facility] [employer] 11-19-2024 13:02-0400 Systolic blood pressure 110 mm[Hg] Tevin Conner MD Work Phone: [facility] [employer] 11-01-2024 14:54-0400 Body temperature 97.9 [degF] Marcos Araujo MD Work Phone: [facility] [employer] 11-01-2024 14:54-0400 Diastolic blood pressure 82 mm[Hg] Marcos Araujo MD Work Phone: [facility] [employer] 11-01-2024 14:54-0400 Heart rate 102 /min Marcos Araujo MD Work Phone: [facility] [employer] 11-01-2024 14:54-0400 Respiratory rate 18 /min Marcos Araujo MD Work Phone: [facility] [employer] 11-01-2024 14:54-0400 SaO2% (BldA) [Mass fraction] 95 % Marcos Araujo MD Work Phone: [facility] [employer] 11-01-2024 14:54-0400 Systolic blood pressure 142 mm[Hg] Marcos Araujo MD Work Phone: [facility] [employer] 10-29-2024 09:29-0400 Body height 162.6 cm Marcos Araujo MD Work Phone: [facility] [employer] 10-29-2024 09:29-0400 Body mass index (BMI) [Ratio] 21.97 kg/m2 Marcos Araujo MD Work Phone: [facility] [employer] 10-29-2024 09:29-0400 Body weight 58.06 kg Marcos Araujo MD Work Phone: [facility] [employer] 10-24-2024 14:27-0500 Body height 160 cm Marcos Araujo MD Work Phone: [facility] [employer] 10-24-2024 14:27-0500 Body mass index (BMI) [Ratio] 23.91 kg/m2 Marcos Araujo MD Work Phone: [facility] [employer] 10-24-2024 14:27-0500 Body weight 61.24 kg Marcos Araujo MD Work Phone: [facility] [employer] 10-24-2024 14:19-0500 Body temperature 97.9 [degF] Marcos Araujo MD Work Phone: [facility] [employer] 10-24-2024 14:19-0500 Diastolic blood pressure 98 mm[Hg] Marcos Araujo MD Work Phone: [facility] [employer] 10-24-2024 14:19-0500 Heart rate 86 /min Marcos Araujo MD Work Phone: [facility] [employer] 10-24-2024 14:19-0500 Respiratory rate 16 /min Marcos Araujo MD Work Phone: [facility] [employer] 10-24-2024 14:19-0500 SaO2% (BldA) [Mass fraction] 98 % [facility]cos [facility]ujo MD [facility] 10-24-2024 14:19-0500 Systolic blood pressure 150 mm[Hg] Marcos Araujo MD Work Phone: [facility] [employer] 10-19-2024 11:24-0500 Body temperature 98.8 [degF] Ag Meng MD Work Phone: [facility] [employer] 10-19-2024 11:24-0500 Diastolic blood pressure 70 mm[Hg] Ag Meng MD Work Phone: [facility] [employer] 10-19-2024 11:24-0500 Heart rate 85 /min Ag Meng MD Work Phone: [facility] [employer] 10-19-2024 11:24-0500 Respiratory rate 20 /min Ag Meng MD Work Phone: [facility] [employer] 10-19-2024 11:24-0500 SaO2% (BldA) [Mass fraction] 92 % Ag Meng MD Work Phone: [facility] [employer] 10-19-2024 11:24-0500 Systolic blood pressure 111 mm[Hg] Ag Meng MD Work Phone: [facility] [employer] 10-18-2024 11:01-0500 Body height 160 cm Ag Meng MD Work Phone: [facility] [employer] 10-18-2024 11:01-0500 Body mass index (BMI) [Ratio] 23.91 kg/m2 Ag Meng MD Work Phone: [facility] [employer] 10-18-2024 11:01-0500 Body weight 61.24 kg Ag Meng MD Work Phone: [facility] 08-23-2024 09:03-0500 Body height 162.6 cm Joana Wilson MD Work Phone: [facility] 08-23-2024 09:03-0500 Body mass index (BMI) [Ratio] 21.8 kg/m2 Joana Wilson MD Work Phone: [facility] 08-23-2024 09:03-0500 Body weight 57.6 kg Joana Wilson MD Work Phone: [facility] 08-23-2024 09:03-0500 Diastolic blood pressure 80 mm[Hg] Joana Wilson MD Work Phone: [facility] 08-23-2024 09:03-0500 Heart rate 74 /min Joana Wilson MD Work Phone: [facility] 08-23-2024 09:03-0500 SaO2% (BldA) [Mass fraction] 97 % Joana Wilson MD Work Phone: [facility] 08-23-2024 09:03-0500 Systolic blood pressure 160 mm[Hg] Joana Wilson MD Work Phone: [facility] 04-12-2024 11:33-0400 Body temperature 96.8 [degF] Dakota Dempsey MD Work Phone: [employer] 04-12-2024 11:33-0400 Diastolic blood pressure 46 mm[Hg] Dakota Dempsey MD Work Phone: [employer] 04-12-2024 11:33-0400 Heart rate 55 /min Dakota Dempsey MD Work Phone: [employer] 04-12-2024 11:33-0400 Respiratory rate 16 /min Dakota Dempsey MD Work Phone: [employer] 04-12-2024 11:33-0400 SaO2% (BldA) [Mass fraction] 97 % Dakota Dempsey MD Work Phone: [employer] 04-12-2024 11:33-0400 Systolic blood pressure 125 mm[Hg] Dakota Dempsey MD Work Phone: [employer] 04-10-2024 13:50-0400 Body weight 56.7 kg Dakota Dempsey MD Work Phone: [employer] Encounters Encounter Date Encounter Type Care Provider Facility Start: 02-18-2025 End: 02-18-2025 Emergency department patient visit Ag Meng MD Work Phone: [facility] ED Comment on above: Urinary tract infect ion without hematuria, site unspecified (Primary Dx); Nausea; Dehydration; Elevated troponin Start: 01-29-2025 ambulatory Kathi KULKARNI Facil ity:[facility] Start: 01-15-2025 ambulatory Kathi KULKARNI Facil ity:[facility] Start: 01-15-2025 Registered Referred Kathi Nixworth - [address] Start: 01-14-2025 ambulatory Kathi KULKARNI Facil ity:[facility] Start: 01-14-2025 Registered Referred Kathi choudhary [place] - [address] Start: 01-05-2025 End: 01-08-2025 ambulatory KATHI JUAREZ [facility] Start: 01-05-2025 End: 01-08-2025 Evaluation and management of inpatient Luana Trinidad DO Work Phone: [facility] Comment on above: Acute pancreatitis, unspecified complication status, unspecified pancreatitis type (Primary Dx); Dementia without behavioral disturbance, psychotic disturbance, mood disturbance, or anxiety, unspecified dementia severity, unspecified dementia type (HCC); Slow transit constipation; Delirium; Debility Start: 12-30-2024 End: 12-30-2024 ambulatory Kathi Ann KULKARNI [facility] Work Phone: Start: 12-30-2024 End: 12-30-2024 Departed Referred Kathi Ann KyawWen Mitra - [address] Start: 12-30-2024 Registered Referred Kathi Ann -A funmi Arizmendi - [address] Start: 12-30-2024 End: 12-30-2024 ambulatory Kathi Collinshner CAYLA Facility:[facility] Start: 12-23-2024 End: 12-23-2024 ambulatory Kathi KULKARNI [facility] Work Phone: Start: 12-23-2024 End: 12-23-2024 Departed Referred Kathi Ann Coxsinan Mitra - [address] Start: 12-23-2024 Registered Referred Kathi Annkashmir Gordillo marthahayden [place] - [address] Start: 12-23-2024 End: 12-23-2024 ambulatory Kathi KULKARNI Facility:[facility] Start: 12-16-2024 End: 12-16-2024 ambulatory Kathi KULKARNI [facility] Work Phone: Start: 12-16-2024 End: 12-16-2024 Departed Referred Kathi Arizmendi - [address] Start: 12-16-2024 Registered Referred Kathi Arizmendi - [address] Start: 12-16-2024 End: 12-16-2024 ambulatory Kathi Ann KULKARNI Facility:[facility] Start: 12-04-2024 End: 12-04-2024 Departed Referred Kathi Arizmendi - [address] Start: 12-04-2024 End: 12-04-2024 ambulatory Kathi Ann KULKARNI Facility:[facility] Start: 11-26-2024 End: 11-26-2024 ambulatory Kathi KULKARNI [facility] Work Phone: Start: 11-26-2024 End: 11-26-2024 Departed Referred Kathi Arizmendi - [address] Start: 11-26-2024 End: 11-26-2024 ambulatory Kathi KULKARNI Facility:[facility] Start: 11-19-2024 End: 11-19-2024 Office outpatient new 30 minutes Tevin Conner MD Work Phone: [facility] Cardiology [facility] Comment on above: Permanent atrial fib rillation (HCC) (Primary Dx); Atrial fibrillation with rapid ventricular response (HCC); Encounter to establish care with new provider; Essential hypertension Start: 11-19-2024 End: 11-19-2024 ambulatory [facility] Start: 11-04-2024 ambulatory Kathi KULKARNI Facil ity:[facility] Start: 11-04-2024 Registered Referred Kathi Arizmendi - [address] Start: 10-29-2024 End: 11-01-2024 Evaluation and management of inpatient Marcos Araujo MD Work Phone: [facility] Cardiac Progressive Care Unit PCU 2E Comment on above: Acute decompensated heart failure (HCC) (Primary Dx); Atrial fibrillation with rapid ventricular response (HCC) Start: 10-28-2024 ambulatory Kathi KULKARNI Facil ity:[facility] Start: 10-28-2024 Registered Referred Kathi Arizmendi - [address] Start: 10-25-2024 ambulatory Kathi KULKARNI Facil ity:[facility] Start: 10-25-2024 Registered Referred Kathi Arizmendi - [address] Start: 10-24-2024 End: 10-24-2024 Emergency department patient visit Marcos Araujo MD Work Phone: [facility] ED Comment on above: Dementia, unspecifie d dementia severity, unspecified dementia type, unspecified whether behavioral, psychotic, or mood disturbance or anxiety (HCC) (Primary Dx) Start: 10-23-2024 ambulatory [facility] Facility:[facility] Start: 10-23-2024 Registered Referred [facility] - [address] Start: 10-17-2024 End: 10-19-2024 ambulatory KATHI JUAREZ [facility] Start: 10-17-2024 End: 10-19-2024 Emergency department patient visit Ag Meng MD Work Phone: [facility] Cardiac Progressive Care Unit PCU 2E Comment on above: NSTEMI (non-ST eleva josé myocardial infarction) (HCC) (Primary Dx); Atrial fibrillation with RVR (HCC); Chest pain, unspecified type Start: 10-08-2024 ambulatory Kathi KULKARNI Facil ity:[facility] Start: 10-08-2024 Registered Referred Kathi Arizmendi - [address] Start: 08-23-2024 End: 08-23-2024 ambulatory ROYER ZAMBRANO Facility:[facility] Start: 08-23-2024 End: 08-23-2024 Patient encounter procedure Joana Wilson MD Work Phone: Cardiology Comment on above: Hypertension, unspec ified type (Primary Dx); Atrial fibrillation, unspecified type (HCC) Start: 07-25-2024 End: 07-25-2024 ambulatory Kathi Annkashmir KULKARNI Facility:[facility] Start: 07-08-2024 End: 07-08-2024 ambulatory Kathi KULKARNI [facility] [facility] Start: 04-10-2024 End: 04-12-2024 [facility] Start: 04-10-2024 End: 04-12-2024 Evaluation and management of inpatient Dakota Dempsey MD Work Phone: [facility] Observation Unit 5E Comment on above: Low back pain withou t sciatica, unspecified back pain laterality, unspecified chronicity (Primary Dx); Bradycardia; Closed fracture of first lumbar vertebra, unspecified fracture morphology, initial encounter ([facility]) Start: 11-22-2023 End: 11-22-2023 Subsequent hospital visit by physician Blayne Rojas DO Work Phone: [facility] MRI Comment on above: Sensorineural hearin g loss, unilateral, right ear, 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; Sensorineural hearing loss, unilateral, left ear, 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; Chronic eustachian salpingitis, unspecified ear; Other abnormal auditory perceptions, unspecified ear Start: 11-17-2023 End: 11-17-2023 ambulatory [facility] Work Phone: Start: 11-17-2023 End: 11-17-2023 Departed Referred [facility] [address] Start: 11-17-2023 Registered Referred [facility] [address] Start: 11-09-2023 End: 02-08-2024 Transcribe Orders Blayne Rojas DO Work Phone: [facility] Central Scheduling Comment on above: Sensorineural hearin g loss, unilateral, right ear, 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 (Primary Dx); Sensorineural hearing loss, unilateral, left ear, 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; Chronic eustachian salpingitis, unspecified ear; Other abnormal auditory perceptions, unspecified ear Start: 11-06-2023 End: 11-06-2023 ambulatory [facility] Work Phone: Start: 11-06-2023 End: 11-06-2023 Departed Referred [facility] Start: 11-06-2023 Registered [facility] Start: 11-02-2023 End: 11-02-2023 ambulatory [facility] Work Phone: Start: 11-02-2023 End: 11-02-2023 Departed Referred [facility] Start: 09-21-2023 End: 09-21-2023 ambulatory [facility] Work Phone: Start: 09-21-2023 End: 09-21-2023 Departed Referred [facility] Start: 08-16-2023 End: 08-16-2023 ambulatory [facility] Work Phone: Start: 08-16-2023 End: 08-16-2023 Departed Referred [facility] Start: 07-21-2023 End: 07-21-2023 ambulatory [facility] Work Phone: Start: 07-21-2023 End: 07-21-2023 Departed Referred [facility] Start: 07-17-2023 End: 07-17-2023 ambulatory [facility] Work Phone: Start: 07-17-2023 End: 07-17-2023 Departed Referred [facility] Start: 07-17-2023 Registered Referred [facility] Start: 07-03-2023 End: 07-03-2023 ambulatory [facility] Work Phone: Start: 07-03-2023 End: 07-03-2023 Departed Referred [facility] Start: 07-03-2023 Registered [facility]erred [facility] Start: 06-26-2023 End: 06-26-2023 ambulatory [facility] Work Phone: Start: 06-26-2023 End: 06-26-2023 Departed Referred [facility] - Unit 100 Start: 06-01-2023 End: 06-01-2023 ambulatory [facility] Work Phone: Start: 06-01-2023 End: 06-01-2023 Departed Referred [facility] - [address] Start: 05-24-2023 End: 05-24-[address] [facility] 100 Procedures Date Procedure Procedure Detail Performing Clinician Start: 02-18-2025 Assay of troponin quantitative Ag Meng MD Work Phone: Start: 02-18-2025 Ct abdomen & pelvis w/contrast material Ag Meng MD Work Phone: Start: 02-18-2025 Radiologic exam ches t single view Ag Meng MD Work Phone: Start: 02-18-2025 Urnls dip stick/tabl et reagent auto microscopy Ag Meng MD Work Phone: Start: 02-18-2025 End: 02-18-2025 Bacteria identified in Blood by Culture Ag Meng MD Work Phone: Start: 02-18-2025 Comprehensive metabo lic panel Ag Meng MD Work Phone: Start: 02-18-2025 Ecg routine ecg w/le ast 12 lds trcg only w/o i&r Ag Meng MD Work Phone: Start: 01-08-2025 Comprehensive metabo lic panel Mis Olvera MD Work Phone: Start: 01-07-2025 Comprehensive metabo [...] MD Work Phone: Start: 11-19-2024 Follow-up visit KATHI JUAREZ Start: 11-01-2024 Comprehensive metabo lic panel Ag [...] HIGH SENSITIVITY TRO PONIN, SERIAL, SECOND TEST Pihll Forte MD Work Phone: Start: 10-17-2024 HIGH [...] Start: 04-11-2027 Diabetes Screening Diabetes Screenin g [facility] Start: 02-18-2026 Creatinine measurement Creatinine Le ines [facility] Start: 02-18-2026 Potassium measurement Potassium Leve l [facility] Start: 01-08-2026 Creatinine measurement Creatinine Le ines [facility] Start: 01-08-2026 Potassium measurement Potassium Leve l [facility] Start: 01-06-2026 Thyroid stimulating hormone measurement TSH Level [facility] Start: 11-19-2025 End: 11-19-2025 Patient encounter procedure 11/19/2025 3:00 PM EDT Office Visit [facility] [address] [id number] Tevin Conner MD [address] [id number] [facility] Start: 11-01-2025 Creatinine measurement Creatinine Le ines [facility] Start: 11-01-2025 Potassium measurement Potassium Leve l [facility] Start: 10-18-2025 Echocardiography Echocardiogram [facility] Start: 10-17-2025 Thyroid stimulating hormone measurement TSH Level [facility] Start: 04-21-2025 Influenza vaccination [facility] Start: 11-19-2024 End: 11-19-2024 Patient encounter procedure 11/19/2024 1:00 PM EDT Office Visit [facility] [address] [id number] Tevin Conner MD [address] [address] [facility] Start: 08-23-2024 End: 08-23-2025 Echocardiography ECHO Cardiology Routine Atrial fibrillation, unspecified type (HCC) Expected: 08/23/2024, Expires: 08/23/2025 [facility] Work Phone: Comment on above: Expected: 08/23/2024 , Expires: 08/23/2025 Start: 08-21-2024 Advance Directive Discussion Advance Directive Discussion [facility] Start: 08-21-2024 Medicare Advantage A nnual Wellness Visit Medicare Advantage Annual Wellness Visit [facility] Start: 04-21-2024 Covid-19 Vaccine ( season) Covid-19 Vaccine ( season) [facility] Start: 04-21-2024 Influenza vaccination [facility] Start: 08-21-2023 Medicare Advantage A nnual Wellness Visit Medicare Advantage Annual Wellness Visit [facility] Start: 04-21-2023 COVID-19 Vaccine ( season) COVID-19 Vaccine ( season) [facility] Start: 2017 RSV Immunization for Adults (1 - 1-dose 75+ series) RSV Immunization for Adults (1 - 1-dose 75+ series) [facility] Start: 2017 RSV Vaccine (1 - 1-d ose 75+ series) RSV Vaccine (1 - 1-dose 75+ series) [facility] Start: 2007 Pneumococcal Vaccine : 65+ Years (1 of 1 - PCV) Pneumococcal Vaccine: 65+ Years (1 of 1 - PCV) [facility] Start: 2007 Screening for osteoporosis Bone Dens ity Screening [facility] Start: 2002 RSV Immunization age d 60 or older (1 - 1-dose 60+ series) RSV Immunization aged 60 or older (1 - 1-dose 60+ series) [facility] Start: 02-11-1992 Shingrix Vaccine (1 of 2) Husain grix Vaccine (1 of 2) [facility] Start: 02-11-1992 Zoster Vaccines (1 of 2) Zoste r Vaccines (1 of 2) [facility] Start: 1961 DTaP/Tdap/Td Vaccine s (1 - Tdap) DTaP/Tdap/Td Vaccines (1 - Tdap) [facility] Start: 1961 Urine microalbumin profile DTa P,Tdap,Td Vaccine (1 - Tdap) [facility] Start: 02-11-1960 Anxiety Screening Anxiety Screening [facility] Start: 02-11-1960 Depression Screening Depression Scre ing [facility] Start: 1954 Depression Monitoring Depression Mon itoring [facility] Start: 1954 Depression Screening Depression Scre ing [facility] Start: 1942 Lipid panel Lipid Panel [facility] Start: 1942 Screening for osteoporosis Bone Dens ity Scan [facility] Start: 1942 Thyroid stimulating hormone measurement TSH Level [facility] [employer] Bacteria identified in Blood by Culture [facility] [employer] End: 01-06-2025 Bacteria identified in Urine by Culture [facility] [employer] Work Phone: Comment on above: Once (Lab) for 1 Occ urrences starting 01/06/2025 until 01/06/2025 End: 02-18-2025 Bacteria identified in Urine by Culture [facility] [employer] Work Phone: Comment on above: Once (Lab) for 1 Occ urrences starting 02/18/2025 until 02/18/2025 ECG COMPLETE ECG COMPLETE ECG 08/23/2024 9:00 AM EST [facility] End: 11-22-2023 MR Brain WO and W contrast IV [facility] [employer] Work Phone: Comment on above: Once for 1 Occurrenc es starting 11/22/2023 until 11/22/2023 End: 09-23-2025 NM Heart Perfusion W stress and W radionuclide IV NM CARDIAC PERF STRESS/PHARM Radiology Routine Atrial fibrillation, unspecified type (HCC) 1 Occurrences starting 08/23/2024 until 09/23/2025 [facility] Comment on above: 1 Occurrences starti ng 08/23/2024 until 09/23/2025 OUTSIDE PROCEDURE SCAN OUTSIDE P ROCEDURE SCAN Procedures Ordered: 11/21/2023 [facility] [employer] [facility] Comment on above: Ordered: 11/21/2023 End: 01-06-2025 Urine Hold Cup Urine Hold Cup Lab Timed Once for 1 Occurrences starting 01/06/2025 until 01/06/2025 [facility] Comment on above: Once for 1 Occurrenc es starting 01/06/2025 until 01/06/2025 Immunizations Immunization Date Immunization Notes Care Provider Cayden zambrano 06-10-2022 influenza virus vacc ine, unspecified formulation Joana Wilson MD Work Phone: [facility] Payers Date Payer Category Payer Medicaid [id number] 2024 Self-pay 2024 Medicaid [id number] 2024 Medicaid O [facility] ONLY [id number] 2024 Medicaid [id number] 2023 Unknown [facility] [facility] [employer] HMO SNP [id number] 2023-Present [phone] [address] [place] [address] HMO [id number] 2022 Medicare [facility] MEDICARE [employer] [id number] 2022-Present [address] [place] [address] Medicare HMO [id number] 2022 Medicare HMO [employer] [id number] 2022 Unknown [id number] Medicare MEDICARE PART A B [id number] 5 [id number] [facility] [id number] Unknown [id number] Unknown [id number] Unknown [id number] Unknown [id number] Unknown [id number] Unknown [id number] Unknown [id number] Unknown [id number] Unknown [id number] [id number] Unknown [id number] [id number] Unknown [id number] [id number] Unknown [id number] Unknown [id number] [id number] Unknown [id number] [id number] Unknown [id number] Social History Date Type Detail Facility Tobacco smoking stat [facility] Unknown if ever smoked [facility] Work Phone: Start: 1940 Sex Assigned At Female [facility] Start: 04-11-2024 Tobacco smoking stat [facility] Tobacco smoking consumption unknown [facility] Start: 1940 Sex Assigned At Not on file [facility] Start: 04-11-2024 End: 01-08-2025 Gender identity Not on file [facility] Start: 04-11-2024 End: 01-08-2025 History of Social function [facility] Within the last year , have you been afraid of your partner or ex-partner? Patient unable to answer [facility] Start: 08-23-2024 End: 01-08-2025 Tobacco smoking status NHIS Ex-smoker [facility] Start: 08-21-2024 History of tobacco use Current smoke r [facility] Start: 08-21-2024 History of tobacco use Cigarette Smo ker [facility] Start: 08-23-2024 Tobacco use and exposure Smokeless tobacco non-user [facility] Start: 08-23-2024 End: 01-08-2025 Alcoholic beverage intake Ex-drinker (finding) [facility] Within the last year , have you been afraid of your partner or ex-partner? No [facility] How often to you hav e a drink containing alcohol? Never [facility] Start: 11-09-2023 Sex Female (finding) [facility] (I/We) worried shaila er (my/our) food would run out before (I/we) got money to buy more. Never true [facility] Start: 01-08-2025 Tobacco Comment 01/08/25 Not voss re of age started, amounts or when she quit. "Didn't smoke much" and "I quit many years ago." [facility] Functional Status Date Assessment Result Facility [facility] Clinical Notes 04-10-2024 to 02-18-2025 Chey Sotomayor RN - 02/18/2025 1:09 PM EDSaúl Sotomayor RN - 02/18/2025 1:09 PM EDSaúl Sotomayor RN - 02/18/2025 12:45 PM EDSaúl Sotomayor RN - 02/18/2025 12:17 PM EDTDischarge Instructions Note Date & Type Note Facility 02-18-2025 Emergency department Note Report given to Danika VYAS and Candice RN [facility] 02-18-2025 Emergency department Note Report given to Danika RN and Candice RN This RN called [facility] to update on eta for transport back around 1430. RN also made aware of new medication Keflex going home with pt. This RN spoke with PAOLA Gaviria at [facility] with update on pt condition, pt baseline and possible transfer back to facility This RN spoke with son Jaylan with update on pt condition at this time [facility] ED EMERGENCY DEPARTMENT ENCOUNTER Pt Name: Sommer Friedman Birthdate 1940 Date of evaluation: 02/18/2025 Provider: Ag Meng MD CHIEF COMPLAINT Chief Complaint Patient presents with Nausea Vomiting Dizziness Pt arrives via EMS from nursing facility where staff stating she was diaphoretic with nausea and vomiting. Pt denies abdominal pain, but states she feels chilled. HISTORY OF PRESENT ILLNESS (Location/Symptom, Timing/Onset,Context/Setting, Quality, Duration, Modifying Factors, Severity) Note limiting factors. Sommer Friedman is a 85 y.o. female who presents to the emergency department Nausea vomiting dizziness patient sent in from a alf they are concerned she is diaphoretic with nausea. Patient sent in via squad. Patient cannot give good history. Patient says she does not feel well. She denies chest pain. Patient says she has had chills. She denies abdominal pain. Patient no other complaints HPI Historian is the patient but overall limited historian Nurse's notes for past medical history, surgical history, social history were reviewed. Medications and allergies reviewed. PAST MEDICAL HISTORY Medical History[1] SURGICALHISTORY Surgical History[2] CURRENT MEDICATIONS Previous Medications APIXABAN (ELIQUIS) 2.5 MG TABLET Take 2.5 mg by mouth 2 times daily. BIOTIN 5 MG CAPSULE Take 5 mg by mouth daily. BUSPIRONE (BUSPAR) 5 MG TABLET 5 mg oral nightly for one week then increase to 10 mg oral nightly BUSPIRONE (BUSPAR) 5 MG TABLET Take by mouth 2 times daily. CALCIUM CARBONATE [...] evening. FUROSEMIDE (LASIX) 20 MG TABLET Take by mouth. FUROSEMIDE (LASIX) 40 MG TABLET Take 1 tablet (40 mg) by mouth daily. FUROSEMIDE (LASIX) 40 MG TABLET Take by mouth. HYDROCORTISONE 2 % LOTION Apply topically. LEVOTHYROXINE (TIROSINT) 88 MCG CAPSULE Take 88 mcg by mouth every morning (before breakfast). MELATONIN 3 MG TABLET DISPERSIBLE Take 9 mg by mouth Nightly. METOPROLOL TARTRATE (LOPRESSOR) 25 MG TABLET Take 1 tablet (25 mg) by mouth 3 times daily. METOPROLOL TARTRATE (LOPRESSOR) 50 MG TABLET Take by mouth. MUPIROCIN (BACTROBAN) 2 % OINTMENT Apply topically three times daily. POLYETHYLENE GLYCOL, PEG, 3350 (MIRALAX) 17 G PACKET Take 17 g by mouth daily. POTASSIUM CHLORIDE CR (KLOR-CON M10) 10 MEQ ER TABLET Take 10 mEq by mouth daily. Do not crush or chew. SPIRONOLACTONE (ALDACTONE) 25 MG TABLET Take by mouth daily. TRAZODONE (DESYREL) 50 MG TABLET Take 25 mg by mouth Nightly. Doxycycline, Gabapentin, and Propoxyphene FAMILY HISTORY Family History[3] SOCIAL HISTORY Social History[4] SCREENINGS PHYSICAL EXAM (up to 7 for level 4, 8 or more for level 5) @EDTRIAGEVSS@ Appropriate PPE including n 95, gown, gloves, goggles where worn when appropriate with this patient. Physical Exam General She appears dehydrated slightly diaphoretic ill-appearing but awake answering questions. Oropharynx dry. Heart is irregularly irregular. lungs are clear. Abdomen is soft no rebound or guarding. Extremities no focal deficit generalized weakness. Neurologically no focal deficits she is alert and oriented to person but not place. Cranial nerves grossly intact sensation strength intact although diffusely weak no focal weakness. NIH is 1 as she is not fully alert and oriented. DIAGNOSTIC RESULTS RADIOLOGY: Interpretation per the Radiologist below, if availableat the time of this note: CT abdomen pelvis w contrast Final Result XR chest 1 view Final Result ED BEDSIDE ULTRASOUND: Performed by ED Physician - none LABS: Labs Reviewed COMPREHENSIVE METABOLIC PANEL - Abnormal Result Value SODIUM 138 POTASSIUM 4.3 CHLORIDE 109 (*) CARBON DIOXIDE 19 (*) ANION GAP 10 UREA NITROGEN 26 (*) CREATININE 1.01 GLUCOSE 137 (*) CALCIUM 9.7 AST (SGOT) 40 (*) ALT 20 ALKALINE PHOSPHATASE 76 ALBUMIN 3.5 BILIRUBIN, TOTAL 0.6 TOTAL PROTEIN 7.4 eGFR 55.3 (*) CBC WITH AUTO DIFFERENTIAL - Abnormal Auto WBC 6.8 RBC 5.08 Hemoglobin 14.8 Hematocrit 44.7 MCV 88.0 MCH 29.1 MCHC 33.1 RDW 20.8 (*) Platelets 245 MPV 8.5 (*) nRBC 0.0 Neutrophils Relative 57.2 Lymphocytes Relative 30.0 Monocytes Relative 10.8 Eosinophils Relative 1.0 Basophils Relative 0.6 Immature Grans % 0.4 Neutrophils Absolute 3.9 Lymphocytes Absolute 2.0 Monocytes Absolute 0.7 Eosinophils Absolute 0.1 Basophils Absolute 0.0 Immature Grans Absolute 0.0 COMPLETE URINALYSIS WITH REFLEX TO CULTURE - Abnormal Color, Urine Yellow Clarity, Urine Turbid (*) pH, Urine 5.5 Leukocytes, Urine 250 (*) Nitrite, Urine Positive (*) Protein, Urine 70 (*) Glucose, Urine Normal Bilirubin, Urine Negative Ketones, Urine Negative Urobilinogen, Urine Normal Blood, Urine Negative RBC, Urine 3-5 (*) WBC, Urine 51-100 (*) Squamous Epithelial, Urine Negative Bacteria, Urine Few (*) Mucus, Urine Few SPECIFIC GRAVITY OF URINE (NUMERIC) 1.014 Narrative: This specimen has been reflexed to urine culture. HIGH SENSITIVITY TROPONIN, SERIAL, SECOND TEST - Abnormal 2h Troponin HS (Serial 2nd Troponin) 18 (*) MAGNESIUM - Normal MAGNESIUM 2.0 Narrative: Higher values can be expected in females during menses. LIPASE - Normal LIPASE 48 HIGH SENSITIVITY TROPONIN, SERIAL BASELINE - Normal Troponin HS Serial Baseline 12 LACTIC ACID WITH REFLEX - Normal LACTIC ACID 0.9 BLOOD CULTURE BLOOD CULTURE URINE CULTURE HIGH SENSITIVITY TROPONIN, SERIAL, THIRD TEST All other labs were within normal range or not returned as of thisdictation. EMERGENCYDEPARTMENT COURSE and DIFFERENTIAL DIAGNOSIS/MDM: Vitals: Vitals: 02/18/25 0844 02/18/25 0927 02/18/25 1215 BP: (!) 173/85 Pulse: 96 95 Resp: 20 15 Temp: (!) 35.9 C (96.7 F) TempSrc: Rectal SpO2: 95% 96% Medical Decision Making Problems Addressed: Dehydration: complicated acute illness or injury Elevated troponin: complicated acute illness or injury Nausea: complicated acute illness or injury Urinary tract infection without hematuria, site unspecified: complicated acute illness or injury Amount and/or Complexity of Data Reviewed Labs: ordered. Radiology: ordered. ECG/medicine tests: ordered. Risk Prescription drug management. EMERGENCY DEPARTMENT COURSE and DIFFERENTIAL DIAGNOSIS/MDM: Vitals: Vitals: 02/18/25 0844 02/18/25 0927 02/18/25 1215 BP: (!) 173/85 Pulse: 96 95 Resp: 20 15 Temp: (!) 35.9 C (96.7 F) TempSrc: Rectal SpO2: 95% 96% The patient presented with a chief complaint of nausea weakness. The differential diagnosis associated with this patient's presentation includes ACS viral illness bacterial infection sepsis pneumonia. Our workup consisted of ordering/reviewing blood work urine chest x-ray. Patient given 1 L of IV fluids. Given 4 of Zofran IV. ED Course as of 02/18/25 1237 Tue Feb 18, 2025 1001 Urine does show signs of infection with nitrates leukocytes WBCs. Urine will be sent for culture. Normal white blood cell count. [GS] 1024 Normal sodium potassium. Normal lactic acid. High-sensitivity troponin is 12. Chloride is 109 bicarb 19. Creatinine is 1.01. Glucose 137. Normal magnesium normal lipase. [GS] 1025 Patient does have blood in her urine will obtain a CT. [GS] 1145 CT abdomen pelvis: FINDINGS: 1. Just included lower chest shows inferior aspect of right calcified breast implant with nonspecific adjacent soft tissue thickening anteriorly. Cardiomegaly is present with some areas of probable scarring lung bases. 2. Fatty infiltration liver. 3. No renal masses are identified. Small left upper pole cortical cyst, slightly atrophic right kidney with two renal arteries bilaterally. 4. Marked generalized calcific atherosclerosis with heavy calcified plaquing about visceral artery origins, occluded right common iliac artery with marked atherosclerosis bilateral iliac systems and upper SFAs. Right leg intramedullary mariann. 5. 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 Absent uterus, diverticulosis left colon with generalized wall thickening (colitis cannot be excluded) [GS] 1229 Patient feels better. Her initial troponin was 12 and the repeat was 18. I do not believe this is active ACS. [GS] 1233 Had extensive discussion with the patient's son Parris Friedman. I explained to her over slightly elevated troponin and he did confirm that he would prefer her to go back to the alf. They do not want her to have aggressive therapy such as heart catheterization or heart surgery they want medical management. I think it is reasonable that this is likely slightly elevated given her known A-fib and dehydration but this can be followed up as an outpatient. Will send her home on Keflex. She received IV Keflex here. She is tolerating p.o. well. Patient has no chest pain no diaphoresis. She feels better tolerating p.o. well. [GS] 1234 Patient overall has a heart score of 6. Through shared decision making she cannot do that but the son is comfortable with the plan. [GS] ED Course User Index [GS] Ag Meng MD Diagnoses as of 02/18/25 1237 Nausea Urinary tract infection without hematuria, site unspecified Dehydration Elevated troponin Diagnostics considered but not indicated based on history, physical, testing: CT of the head however not clinical indicated based on history and physical as I do not believe this is CVA. External records reviewed: Patient's been admitted in the past for heart failure. 10/29/2024 she has history of A-fib seen cardiology for 125. Admitted 01/05/2025 for acute pancreatitis in addition to mention delirium Radiologic diagnostics interpreted by me: film images such as CT, Ultrasound and MRI are read by the radiologist. Plain radiographic images are visualized and preliminarily interpreted by the emergency physician with the below findings: EKG(s) EKG per my interpretation atrial fibrillation nonsevere T wave changes left anterior fascicular block. Borderline ST elevation changes but compared to previous no acute change. Xray(s) chest x-ray per my interpretation no acute process. CT ABD/PELVIS FINDINGS: 1. Just included lower chest shows inferior aspect of right calcified breast implant with nonspecific adjacent soft tissue thickening anteriorly. Cardiomegaly is present with some areas of probable scarring lung bases. 2. Fatty infiltration liver. 3. No renal masses are identified. Small left upper pole cortical cyst, slightly atrophic right kidney with two renal arteries bilaterally. 4. Marked generalized calcific atherosclerosis with heavy calcified plaquing about visceral artery origins, occluded right common iliac artery with marked atherosclerosis bilateral iliac systems and upper SFAs. Right leg intramedullary mariann. 5. 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 Absent uterus, diverticulosis left colon with generalized wall thickening (colitis cannot be excluded) Discussions with other clinicians: None Chronic conditions impacting care: Patient has a history of dementia A-fib depression anxiety pancreatitis Social determinants of health affecting care: Lives in alf Shared decision making: Patient agrees to treatment plan Admission to the hospital considered : Given her UTI given her cognitive situation given slight elevated troponin but with discussion with the patient's son who is decision-maker both the patient and the son would like to go back to the alf facility and is comfortable this plan I personally discussed it with him. Patient has a normal lactic acid. She is not septic or bacteremic. ED Medications managed: Medications sodium chloride 0.9 % bolus 1,000 mL (0 mL IntraVENous Stopped 02/18/25 1125) ondansetron (Zofran) injection 4 mg (4 mg IntraVENous Given 02/18/25 0944) cefTRIAXone (Rocephin) 1,000 mg in sodium chloride 0.9 % 50 mL IVPB Mini-Bag Plus (0 mg IntraVENous Stopped 02/18/25 1101) iopamidol (Isovue-370) 76 % injection 75 mL (75 mL IntraVENous Given 02/18/25 1106) Prescription drugs prescribed: Keflex PROCEDURES: Unless otherwise noted below, none Procedures IMPRESSION 1. Urinary tract infection without hematuria, site unspecified 2. Nausea 3. Dehydration 4. Elevated troponin DISPOSITION/PLAN DISPOSITION Discharge 02/18/2025 12:26:50 PM PATIENT REFERRED TO: Kathi Juarez MD [address] [facility] [address] In 3 days Tevin Conner MD [address] [facility] [address] In 1 week Would recommend that you follow-up with Dr. Staples in regards to the slightly elevated troponin. DISCHARGE MEDICATIONS: New Prescriptions CEPHALEXIN (KEFLEX) 500 MG CAPSULE Take 1 capsule (500 mg) by mouth 2 times daily for 7 days. @[facility]([id number]:LAST:1)@ (Comment: Please notethis report has been produced using speech recognition software and may contain errors related to that system including errors in grammar, punctuation, and spelling, as well as words and phrases that may be inappropriate.If there is any questions or concerns please feel free to contact the dictating provider for clarification). Ag Meng MD (electronically signed) Attending Emergency Physician [1] Past Medical History: Diagnosis Date Afib (CMS/HCC) (HCC) Anxiety CHF (congestive heart failure) (HCC) COPD (chronic obstructive pulmonary disease) (HCC) Dementia (HCC) Depression Hyperlipidemia Hypertension Hypothyroid Insomnia Pulmonary HTN (HCC) [2] No past surgical history on file. [3] No family history on file. [4] Social History Socioeconomic History Marital status: Tobacco Use Smoking status: Former Current packs/day: 1.00 Average packs/day: 1 pack/day for 0.5 years (0.5 ttl pk-yrs) Types: Cigarettes Start date: 2024 Tobacco comments: 01/08/25 Not sure of age started, amounts or when she quit. "Didn't smoke much" and "I quit many years ago." Vaping Use Vaping status: Never Used Substance and Sexual Activity Alcohol use: Not Currently Drug use: Not Currently Social Drivers of Health Food Insecurity: No Food Insecurity (01/08/2025) Hunger Vital Sign Worried About Running Out of Food in the Last Year: Never true Ran Out of Food in the Last Year: Never true Transportation Needs: No Transportation Needs (01/08/2025) PRAPARE - Transportation Lack of Transportation (Medical): No Lack of Transportation (Non-Medical): No Intimate Partner Violence: Not At Risk (01/08/2025) Humiliation, Afraid, Rape, and Kick questionnaire Fear of Current or Ex-Partner: No Emotionally Abused: No Physically Abused: No Sexually Abused: No Housing Stability: Low Risk (01/08/2025) Housing Stability Vital Sign Unable to Pay for Housing in the Last Year: No Number of Times Moved in the Last Year: 0 Homeless in the Last Year: No Ag Meng MD 02/18/25 1237 documented in this encounter [facility] 02-18-2025 Emergency department Note This RN called [facility] to update on eta for transport back around 1430. RN also made aware of new medication Keflex going home with pt. [facility] 02-18-2025 Hospital Discharge instructions Ag Meng MD - 02/18/2025 12:27 PM EDT The troponin was slightly elevated. I think this is more reflection of demand likely from dehydration after discussion with the patient's son, Parris, they are doing medical management would not like acute intervention such as heart catheter heart surgery therefore I think it is appropriate for this to be followed up as an outpatient with her personal companion. Continue all other medications. The following attachments cannot be sent through Care Everywhere.Urinary Tract Infection, Adult ED (Hungarian)Dehydration Discharge Instructions, Adult (Hungarian)Nausea and Vomiting, Adult (Hungarian)documented in this encounter [facility] 02-18-2025 Emergency department Note This RN spoke with PAOLA Gaviria at [facility] with update on pt condition, pt baseline and possible transfer back to facility [facility] 02-18-2025 Emergency department Note This RN spoke with kaushal Tian with update on pt condition at this time [facility] 02-18-2025 Physician Emergency department Note [facility] ED EMERGENCY DEPARTMENT ENCOUNTER Pt Name: Sommer Friedman Birthdate 1940 Date of evaluation: 02/18/2025 Provider: Ag Meng MD CHIEF COMPLAINT Chief Complaint Patient presents with Nausea Vomiting Dizziness Pt arrives via EMS from nursing facility where staff stating she was diaphoretic with nausea and vomiting. Pt denies abdominal pain, but states she feels chilled. HISTORY OF PRESENT ILLNESS (Location/Symptom, Timing/Onset,Context/Setting, Quality, Duration, Modifying Factors, Severity) Note limiting factors. Sommer Friedman is a 85 y.o. female who presents to the emergency department Nausea vomiting dizziness patient sent in from a alf they are concerned she is diaphoretic with nausea. Patient sent in via squad. Patient cannot give good history. Patient says she does not feel well. She denies chest pain. Patient says she has had chills. She denies abdominal pain. Patient no other complaints HPI Historian is the patient but overall limited historian Nurse's notes for past medical history, surgical history, social history were reviewed. Medications and allergies reviewed. PAST MEDICAL HISTORY Medical History[1] SURGICALHISTORY Surgical History[2] CURRENT MEDICATIONS Previous Medications APIXABAN (ELIQUIS) 2.5 MG TABLET Take 2.5 mg by mouth 2 times daily. BIOTIN 5 MG CAPSULE Take 5 mg by mouth daily. BUSPIRONE (BUSPAR) 5 MG TABLET 5 mg oral nightly for one week then increase to 10 mg oral nightly BUSPIRONE (BUSPAR) 5 MG TABLET Take by mouth 2 times daily. CALCIUM CARBONATE [...] evening. FUROSEMIDE (LASIX) 20 MG TABLET Take by mouth. FUROSEMIDE (LASIX) 40 MG TABLET Take 1 tablet (40 mg) by mouth daily. FUROSEMIDE (LASIX) 40 MG TABLET Take by mouth. HYDROCORTISONE 2 % LOTION Apply topically. LEVOTHYROXINE (TIROSINT) 88 MCG CAPSULE Take 88 mcg by mouth every morning (before breakfast). MELATONIN 3 MG TABLET DISPERSIBLE Take 9 mg by mouth Nightly. METOPROLOL TARTRATE (LOPRESSOR) 25 MG TABLET Take 1 tablet (25 mg) by mouth 3 times daily. METOPROLOL TARTRATE (LOPRESSOR) 50 MG TABLET Take by mouth. MUPIROCIN (BACTROBAN) 2 % OINTMENT Apply topically three times daily. POLYETHYLENE GLYCOL, PEG, 3350 (MIRALAX) 17 G PACKET Take 17 g by mouth daily. POTASSIUM CHLORIDE CR (KLOR-CON M10) 10 MEQ ER TABLET Take 10 mEq by mouth daily. Do not crush or chew. SPIRONOLACTONE (ALDACTONE) 25 MG TABLET Take by mouth daily. TRAZODONE (DESYREL) 50 MG TABLET Take 25 mg by mouth Nightly. Doxycycline, Gabapentin, and Propoxyphene FAMILY HISTORY Family History[3] SOCIAL HISTORY Social History[4] SCREENINGS PHYSICAL EXAM (up to 7 for level 4, 8 or more for level 5) @[facility]@ Appropriate PPE including n 95, gown, gloves, goggles where worn when appropriate with this patient. Physical Exam General She appears dehydrated slightly diaphoretic ill-appearing but awake answering questions. Oropharynx dry. Heart is irregularly irregular. lungs are clear. Abdomen is soft no rebound or guarding. Extremities no focal deficit generalized weakness. Neurologically no focal deficits she is alert and oriented to person but not place. Cranial nerves grossly intact sensation strength intact although diffusely weak no focal weakness. NIH is 1 as she is not fully alert and oriented. DIAGNOSTIC RESULTS RADIOLOGY: Interpretation per the Radiologist below, if availableat the time of this note: CT abdomen pelvis w contrast Final Result XR chest 1 view Final Result ED BEDSIDE ULTRASOUND: Performed by ED Physician - none LABS: Labs Reviewed COMPREHENSIVE METABOLIC PANEL - Abnormal Result Value SODIUM 138 POTASSIUM 4.3 CHLORIDE 109 (*) CARBON DIOXIDE 19 (*) ANION GAP 10 UREA NITROGEN 26 (*) CREATININE 1.01 GLUCOSE 137 (*) CALCIUM 9.7 AST (SGOT) 40 (*) ALT 20 ALKALINE PHOSPHATASE 76 ALBUMIN 3.5 BILIRUBIN, TOTAL 0.6 TOTAL PROTEIN 7.4 eGFR 55.3 (*) CBC WITH AUTO DIFFERENTIAL - Abnormal Auto WBC 6.8 RBC 5.08 Hemoglobin 14.8 Hematocrit 44.7 MCV 88.0 MCH 29.1 MCHC 33.1 RDW 20.8 (*) Platelets 245 MPV 8.5 (*) nRBC 0.0 Neutrophils Relative 57.2 Lymphocytes Relative 30.0 Monocytes Relative 10.8 Eosinophils Relative 1.0 Basophils Relative 0.6 Immature Grans % 0.4 Neutrophils Absolute 3.9 Lymphocytes Absolute 2.0 Monocytes Absolute 0.7 Eosinophils Absolute 0.1 Basophils Absolute 0.0 Immature Grans Absolute 0.0 COMPLETE URINALYSIS WITH REFLEX TO CULTURE - Abnormal Color, Urine Yellow Clarity, Urine Turbid (*) pH, Urine 5.5 Leukocytes, Urine 250 (*) Nitrite, Urine Positive (*) Protein, Urine 70 (*) Glucose, Urine Normal Bilirubin, Urine Negative Ketones, Urine Negative Urobilinogen, Urine Normal Blood, Urine Negative RBC, Urine 3-5 (*) WBC, Urine 51-100 (*) Squamous Epithelial, Urine Negative Bacteria, Urine Few (*) Mucus, Urine Few SPECIFIC GRAVITY OF URINE (NUMERIC) 1.014 Narrative: This specimen has been reflexed to urine culture. HIGH SENSITIVITY TROPONIN, SERIAL, SECOND TEST - Abnormal 2h Troponin HS (Serial 2nd Troponin) 18 (*) MAGNESIUM - Normal MAGNESIUM 2.0 Narrative: Higher values can be expected in females during menses. LIPASE - Normal LIPASE 48 HIGH SENSITIVITY TROPONIN, SERIAL BASELINE - Normal Troponin HS Serial Baseline 12 LACTIC ACID WITH REFLEX - Normal LACTIC ACID 0.9 BLOOD CULTURE BLOOD CULTURE URINE CULTURE HIGH SENSITIVITY TROPONIN, SERIAL, THIRD TEST All other labs were within normal range or not returned as of thisdictation. EMERGENCYDEPARTMENT COURSE and DIFFERENTIAL DIAGNOSIS/MDM: Vitals: Vitals: 02/18/25 0844 02/18/25 0927 02/18/25 1215 BP: (!) 173/85 Pulse: 96 95 Resp: 20 15 Temp: (!) 35.9 C (96.7 F) TempSrc: Rectal SpO2: 95% 96% Medical Decision Making Problems Addressed: Dehydration: complicated acute illness or injury Elevated troponin: complicated acute illness or injury Nausea: complicated acute illness or injury Urinary tract infection without hematuria, site unspecified: complicated acute illness or injury Amount and/or Complexity of Data Reviewed Labs: ordered. Radiology: ordered. ECG/medicine tests: ordered. Risk Prescription drug management. EMERGENCY DEPARTMENT COURSE and DIFFERENTIAL DIAGNOSIS/MDM: Vitals: Vitals: 02/18/25 0844 02/18/25 0927 02/18/25 1215 BP: (!) 173/85 Pulse: 96 95 Resp: 20 15 Temp: (!) 35.9 C (96.7 F) TempSrc: Rectal SpO2: 95% 96% The patient presented with a chief complaint of nausea weakness. The differential diagnosis associated with this patient's presentation includes ACS viral illness bacterial infection sepsis pneumonia. Our workup consisted of ordering/reviewing blood work urine chest x-ray. Patient given 1 L of IV fluids. Given 4 of Zofran IV. ED Course as of 02/18/25 1237 Tue Feb 18, 2025 100 Urine does show signs of infection with nitrates leukocytes WBCs. Urine will be sent for culture. Normal white blood cell count. [GS] 1024 Normal sodium potassium. Normal lactic acid. High-sensitivity troponin is 12. Chloride is 109 bicarb 19. Creatinine is 1.01. Glucose 137. Normal magnesium normal lipase. [GS] 1025 Patient does have blood in her urine will obtain a CT. [GS] 1145 CT abdomen pelvis: FINDINGS: 1. Just included lower chest shows inferior aspect of right calcified breast implant with nonspecific adjacent soft tissue thickening anteriorly. Cardiomegaly is present with some areas of probable scarring lung bases. 2. Fatty infiltration liver. 3. No renal masses are identified. Small left upper pole cortical cyst, slightly atrophic right kidney with two renal arteries bilaterally. 4. Marked generalized calcific atherosclerosis with heavy calcified plaquing about visceral artery origins, occluded right common iliac artery with marked atherosclerosis bilateral iliac systems and upper SFAs. Right leg intramedullary mariann. 5. 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 Absent uterus, diverticulosis left colon with generalized wall thickening (colitis cannot be excluded) [GS] 1229 Patient feels better. Her initial troponin was 12 and the repeat was 18. I do not believe this is active ACS. [GS] 1233 Had extensive discussion with the patient's son Parris Friedman. I explained to her over slightly elevated troponin and he did confirm that he would prefer her to go back to the alf. They do not want her to have aggressive therapy such as heart catheterization or heart surgery they want medical management. I think it is reasonable that this is likely slightly elevated given her known A-fib and dehydration but this can be followed up as an outpatient. Will send her home on Keflex. She received IV Keflex here. She is tolerating p.o. well. Patient has no chest pain no diaphoresis. She feels better tolerating p.o. well. [GS] 1234 Patient overall has a heart score of 6. Through shared decision making she cannot do that but the son is comfortable with the plan. [GS] ED Course User Index [GS] Ag Meng MD Diagnoses as of 02/18/25 1237 Nausea Urinary tract infection without hematuria, site unspecified Dehydration Elevated troponin Diagnostics considered but not indicated based on history, physical, testing: CT of the head however not clinical indicated based on history and physical as I do not believe this is CVA. External records reviewed: Patient's been admitted in the past for heart failure. 10/29/2024 she has history of A-fib seen cardiology for 125. Admitted 01/05/2025 for acute pancreatitis in addition to mention delirium Radiologic diagnostics interpreted by me: film images such as CT, Ultrasound and MRI are read by the radiologist. Plain radiographic images are visualized and preliminarily interpreted by the emergency physician with the below findings: EKG(s) EKG per my interpretation atrial fibrillation nonsevere T wave changes left anterior fascicular block. Borderline ST elevation changes but compared to previous no acute change. Xray(s) chest x-ray per my interpretation no acute process. CT ABD/PELVIS FINDINGS: 1. Just included lower chest shows inferior aspect of right calcified breast implant with nonspecific adjacent soft tissue thickening anteriorly. Cardiomegaly is present with some areas of probable scarring lung bases. 2. Fatty infiltration liver. 3. No renal masses are identified. Small left upper pole cortical cyst, slightly atrophic right kidney with two renal arteries bilaterally. 4. Marked generalized calcific atherosclerosis with heavy calcified plaquing about visceral artery origins, occluded right common iliac artery with marked atherosclerosis bilateral iliac systems and upper SFAs. Right leg intramedullary mariann. 5. 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 Absent uterus, diverticulosis left colon with generalized wall thickening (colitis cannot be excluded) Discussions with other clinicians: None Chronic conditions impacting care: Patient has a history of dementia A-fib depression anxiety pancreatitis Social determinants of health affecting care: Lives in alf Shared decision making: Patient agrees to treatment plan Admission to the hospital considered : Given her UTI given her cognitive situation given slight elevated troponin but with discussion with the patient's son who is decision-maker both the patient and the son would like to go back to the alf facility and is comfortable this plan I personally discussed it with him. Patient has a normal lactic acid. She is not septic or bacteremic. ED Medications managed: Medications sodium chloride 0.9 % bolus 1,000 mL (0 mL IntraVENous Stopped 02/18/25 1125) ondansetron (Zofran) injection 4 mg (4 mg IntraVENous Given 02/18/25 0965) cefTRIAXone (Rocephin) 1,000 mg in sodium chloride 0.9 % 50 mL IVPB Mini-Bag Plus (0 mg IntraVENous Stopped 02/18/25 1101) iopamidol (Isovue-370) 76 % injection 75 mL (75 mL IntraVENous Given 02/18/25 1106) Prescription drugs prescribed: Keflex PROCEDURES: Unless otherwise noted below, none Procedures IMPRESSION 1. Urinary tract infection without hematuria, site unspecified 2. Nausea 3. Dehydration 4. Elevated troponin DISPOSITION/PLAN DISPOSITION Discharge 02/18/2025 12:26:50 PM PATIENT REFERRED TO: Kathi Juarez MD [address] [facility] [address] In 3 days Tevin Conner MD [address] [facility] [address] In 1 week Would recommend that you follow-up with Dr. Staples in regards to the slightly elevated troponin. DISCHARGE MEDICATIONS: New Prescriptions CEPHALEXIN (KEFLEX) 500 MG CAPSULE Take 1 capsule (500 mg) by mouth 2 times daily for 7 days. @[facility]([id number]:LAST:1)@ (Comment: Please notethis report has been produced using speech recognition software and may contain errors related to that system including errors in grammar, punctuation, and spelling, as well as words and phrases that may be inappropriate.If there is any questions or concerns please feel free to contact the dictating provider for clarification). Ag Meng MD (electronically signed) Attending Emergency Physician [1] Past Medical History: Diagnosis Date Afib (CMS/HCC) (HCC) Anxiety CHF (congestive heart failure) (HCC) COPD (chronic obstructive pulmonary disease) (HCC) Dementia (HCC) Depression Hyperlipidemia Hypertension Hypothyroid Insomnia Pulmonary HTN (HCC) [2] No past surgical history on file. [3] No family history on file. [4] Social History Socioeconomic History Marital status: Tobacco Use Smoking status: Former Current packs/day: 1.00 Average packs/day: 1 pack/day for 0.5 years (0.5 ttl pk-yrs) Types: Cigarettes Start date: 2024 Tobacco comments: 01/08/25 Not sure of age started, amounts or when she quit. "Didn't smoke much" and "I quit many years ago." Vaping Use Vaping status: Never Used Substance and Sexual Activity Alcohol use: Not Currently Drug use: Not Currently Social Drivers of Health Food Insecurity: No Food Insecurity (01/08/2025) Hunger Vital Sign Worried About Running Out of Food in the Last Year: Never true Ran Out of Food in the Last Year: Never true Transportation Needs: No Transportation Needs (01/08/2025) PRAPARE - Transportation Lack of Transportation (Medical): No Lack of Transportation (Non-Medical): No Intimate Partner Violence: Not At Risk (01/08/2025) Humiliation, Afraid, Rape, and Kick questionnaire Fear of Current or Ex-Partner: No Emotionally Abused: No Physically Abused: No Sexually Abused: No Housing Stability: Low Risk (01/08/2025) Housing Stability Vital Sign Unable to Pay for Housing in the Last Year: No Number of Times Moved in the Last Year: 0 Homeless in the Last Year: No Ag Meng MD 02/18/25 1237 [facility] 01-08-2025 Plan of care note Problem: Knowledge [...] maintained or improved Outcome: Adequate for Discharge [facility] 01-08-2025 Miscellaneous Notes Problem: Knowledge Deficit [...] been confirmed for 3 PM. RN and post anesthesia care unit nurse notified via secure chat. SonParris, notified via TC; VM left. Confirmed pickup time of 3:00pm on 01/08/25 by transport Ugenieald Rupa at phone number [phone]. Location of facility drop off is [facility]. Facility notified via [facility], [facility] notified on secure chat. Discharge med list transmitted to [facility] via [employer] per [facility] request. Discharge order noted in epic. SHOULDER PAD MOLDER tasked to set up cot transport. Care Managment Initial Assessment Date: 01/08/2025 Patient Name: Sommer Friedman : 1940 Patient Information Source of Information: Patient Ribbon Sweatband Operator Name/Contact Information: kaushal Huitron via TC Cognition/Language: Impaired, Confused at baseline Permission given to speak with patient sales representative girls' apparel/caregiver as indicated: Yes Confirmation of Payer with patient/family: Yes Payer Name: [employer] and [facility] Mycare medicaid only [place]: No Confirmation of Primary Care Physician: Confirmed PCP Name: MD at facility Seen in last 2 years?: Yes Primary Caregiver: Other (Comment) (facility staff) If assistance needed, confirmed caregiver ready, willing and able to care for patient at discharge: Confirmed with: Living Arrangements Facility: [facility] Facility Name: [facility] Plan to Return: Yes Lives with: Other (Comment) (at [facility]) Support Systems: Children, Family members, Comments (Other) [...] expects to be discharged to: return to [facility] Discharge Planning Actions: Continue to follow, [facility] Facility referral indicated [place] of choice: [place] of choice discussed (choice list not indicated. Patient is LTC at [facility]/ son stated plan is to return) Patient's Choice Rights and [employer] and Collaborative Relationships Disclosed as Indicated for Post-Acute Care: NA Interdisciplinary Team Engagement: Social Work Referral for: Additional Information: Introduced self and role to patient sonParris, via TC. Patient admitted from [facility] 2/2 pain, constipation, ?UTI. Geriatrics consulted. Per Parris, plan is for return at discharge. [facility] tasked to place return referral. Hazel Jain RN Return Referral placed to [facility] per [facility]CC request. Await review and response [...] improved Outcome: Progressing documented in this encounter [facility] 01-08-2025 Note Formatting of this n ote might be different from the original. Transportation has been confirmed for 3 PM. RN and post anesthesia care unit nurse notified via secure chat. SonParris, notified via TC; VM left. [facility] 01-08-2025 Note Formatting of this n ote might be different from the original. Transportation has been confirmed for 3 PM. RN and post anesthesia care unit nurse notified via secure chat. SonParris, notified via TC; VM left. [facility] 01-08-2025 Note Formatting of this n ote might be different from the original. Confirmed pickup time of 3:00pm on 01/08/25 by transport [email or web address] at phone number [phone]. Location of facility drop off is [facility]. Facility notified via [facility], TCC notified on secure chat. [facility] 01-08-2025 Note Formatting of this n ote might be different from the original. Confirmed pickup time of 3:00pm on 01/08/25 by transport [email or web address] at phone number [phone]. Location of facility drop off is [facility]. Facility notified via [facility], TCC notified on secure chat. [facility] 01-08-2025 Note Formatting of this n ote might be different from the original. Discharge med list transmitted to [facility] per TCC request. [facility] 01-08-2025 Note Formatting of this n ote might be different from the original. Discharge med list transmitted to [facility] per [facility]CC request. [facility] 01-08-2025 Note Formatting of this n ote might be different from the original. Discharge order noted in epic. [facility] tasked to set up cot transport. [facility] 01-08-2025 Note Formatting of this n ote might be different from the original. Discharge order noted in epic. [facility] tasked to set up cot transport. [facility] 01-08-2025 Note [facility] 01-08-2025 Hospital course Narrative Images from the [...] above. Pt was brought by EMS From [facility] after staff reporting that she was screaming [...] 6.4 6.5 PT/INR: No results for input(s): "PROTIME", "INR" in the last 72 hours. CARDIAC ENZYMES: No results for input(s): "TROPONINI" in the last 72 hours. Procalcitonin: No results found for: "PROCAL" COVID-19 PCR: No results for input(s): "COVID19" in the last 72 hours. Objective: Vitals: BP 147/89 (BP Location: Left arm, Patient Position: Lying) Pulse 89 Temp 36.3 C (97.4 F) (Temporal) Resp 18 Ht 5' 5" (1.651 m) Wt 145 lb (65.8 kg) [...] DIAGNOSTIC STUDIES: CT abdomen pelvis w contrast [[id number]] Collected: 01/06/25254 Order Status: Completed Updated: 01/06/25300 Narrative: Patient Name: SOMMER FRIEDMAN : 1940 [facility]#: [id number] Exam Date/Time: 01/06/2025 01:53 Procedure: CT ABDOMEN [...] to [facility] [address] [facility] [id number] Hours: Monday to Monday 10 am to 6 pm senna-docusate sodium 8.6-50 MG tablet DIET: Adult diet Regular ACTIVITY: No restriction. COMPLEXITY OF FOLLOW UP: [] Moderate Complexity: follow up within 7-14 calendar days (73883) [] Severe Complexity: follow up within 7 calendar days (76366) FOLLOW UP TESTING, PENDING RESULTS OR REFERRALS [...] frame. DISCHARGE TIME: 31.5 minutes SIGNED: Mis Olvera MD 01/08/2025, 11:27 AM documented in this encounter [facility] 01-08-2025 Hospital Discharge instructions Joana Garcia LPN - 01/08/2025 11:24 AM EDT Images from the original note were not included. Continuity of Care Form Patient Name: Sommer Friedman : 1940 Admit date: 01/05/2025 Discharge date: 01/08/25 Code Status Order: Full Code Advance Directives: N Admitting Physician: Mis Olvera MD PCP: Kathi Juarez MD Discharging Nurse: RAYMON Garcia Discharging Hospital Unit/Room#: W6-629/W6-629 A Discharging Unit Emergency Contact: Extended Emergency Contact Information Primary Emergency Contact: Parris Friedman Mobile Relation: Mother Secondary Emergency Contact: Jaylan Friedman Mobile Relation: Mother Preferred language: Hungarian Laserist needed? No Past Surgical History: History reviewed. [...] (97.4 F) (Temporal) Resp 18 Ht 5' 5" (1.651 m) Wt 145 lb (65.8 kg) [...] Minimal assistance Toileting Minimal assistance Feeding Independent Water Sponger Minimal assistance Med Delivery yes Wound Care [...] OBS 01/05 Discharging to Facility/ Agency Name: [facility] Address: [address] [place] [id number] Dialysis Facility (if applicable) Name: Address: Dialysis Schedule: Phone: Fax: Aircraft Pne[employer]raulic Systems Mechanic/Templer Head signature: ICIAN SECTION Name: Sommer Friedman Prognosis: fair Condition at Discharge: stable Rehab Potential (if transferring to Rehab): fair Recommended Labs or Other Treatments After Discharge: cbc, cmp The individual is being admitted to a nursing facility directly from an [facility] or a unit of a [facility] that is not operated by or licensed by [facility] under section 5119.14 or 5160-3-15.1 5 The [...] H&P PHYSICIAN SIGNATURE: documented in this encounter [facility] 01-08-2025 Note Formatting of this n ote might be different from the original. Care Managment Initial Assessment Date: 01/08/2025 Patient Name: Sommer Friedman : 1940 Patient Information Source of Information: Patient Ribbon Sweatband Operator Name/Contact Information: kaushal Huitron via TC Cognition/Language: Impaired, Confused at baseline Permission given to speak with patient sales representative girls' apparel/caregiver as indicated: Yes Confirmation of Payer with patient/family: Yes [facility] [employer] [facility] [place]: No Confirmation of Primary Care Physician: Confirmed PCP Name: MD at facility Seen in last 2 years?: Yes Primary Caregiver: Other (Comment) (facility staff) If assistance needed, confirmed caregiver ready, willing and able to care for patient at discharge: Confirmed with: Living Arrangements Facility: [facility] Facility Name: [facility] Plan to Return: Yes Lives with: Other (Comment) (at [facility]) Support Systems: Children, Family members, Comments (Other) [...] expects to be discharged to: return to [facility] Discharge Planning Actions: Continue to follow, [facility] Facility referral indicated [place] of choice: [place] of choice discussed (choice list not indicated. Patient is LTC at SNF/ son stated plan is to return) Patient's Choice Rights and [employer] and Collaborative Relationships Disclosed as Indicated for Post-Acute Care: NA Interdisciplinary Team Engagement: Social Work Referral for: Additional Information: Introduced self and role to patient sonParris, via TC. Patient admitted from [facility] 2/2 pain, constipation, ?UTI. Geriatrics consulted. Per Parris, plan is for return at discharge. [facility] tasked to place return referral. Hazel Jain RN [facility] 01-08-2025 Note Formatting of this n ote might be different from the original. Care Managment Initial Assessment Date: 01/08/2025 Patient Name: Sommer Friedman : 1940 Patient Information Source of Information: Patient Ribbon Sweatband Operator Name/Contact Information: kaushal Huitron via TC Cognition/Language: Impaired, Confused at baseline Permission given to speak with patient sales representative girls' apparel/caregiver as indicated: Yes Confirmation of Payer with patient/family: Yes Payer Name: [employer] and [facility] medicaid only [place]: No Confirmation of Primary Care Physician: Confirmed PCP Name: MD at facility Seen in last 2 years?: Yes Primary Caregiver: Other (Comment) (facility staff) If assistance needed, confirmed caregiver ready, willing and able to care for patient at discharge: Confirmed with: Living Arrangements Facility: [facility] Facility Name: [facility] Plan to Return: Yes Lives with: Other (Comment) (at [facility]) Support Systems: Children, Family members, Comments (Other) [...] expects to be discharged to: return to [facility] Discharge Planning Actions: Continue to follow, [facility] Facility referral indicated [place] of choice: [place] of choice discussed (choice list not indicated. Patient is LTC at SNF/ son stated plan is to return) Patient's Choice Rights and [employer] and Collaborative Relationships Disclosed as Indicated for Post-Acute Care: NA Interdisciplinary Team Engagement: Social Work Referral for: Additional Information: Introduced self and role to patient sonParris, via TC. Patient admitted from [facility] 2/2 pain, constipation, ?UTI. Geriatrics consulted. Per Parris, plan is for return at discharge. [facility] tasked to place return referral. Hazel Jain RN [facility] 01-08-2025 Note Formatting of this n ote might be different from the original. Return Referral placed to [facility] via [facility] per TCC request. Await review and response regarding ability to accept. TCC notified. T [facility] 01-08-2025 Note Formatting of this n ote might be different from the original. Return Referral placed to [facility] via [facility] per TCC request. Await review and response regarding ability to accept. TCC notified. T [facility] 01-08-2025 Note Return Referral plac ed to [facility] via [facility] per TCC request. Await review and response regarding ability to accept. TCC notified. [facility] 01-08-2025 Note Problem: Potential f or Compromised Skin Integrity Goal: Nutritional status is improving Outcome: Progressing [facility] 01-08-2025 Plan of care note Problem: Potential for Compromised Skin Integrity Goal: Nutritional status is improving Outcome: Progressing [facility] 01-08-2025 History of Present illness Narrative Hospitalist Progress Note Subjective: Admit Date: 01/05/2025 PCP: Kathi Juarez MD Room#: W0-883/W6-789 A Chief Complaint Patient presents with Constipation Per patient she has no complaints. Per EMS she is constipated per nursing facility Brief Hospital course: oSmmer is a 84 y.o. female with past medical history below who presents with chief complaint listed above. Pt was brought by EMS From [facility] after staff reporting that she was screaming [...] 6.4 6.5 PT/INR: No results for input(s): "PROTIME", "INR" in the last 72 hours. CARDIAC ENZYMES: No results for input(s): "TROPONINI" in the last 72 hours. Procalcitonin: No results found for: "PROCAL" COVID-19 PCR: No results for input(s): "COVID19" in the last 72 hours. Objective: Vitals: BP 147/89 (BP Location: Left arm, Patient Position: Lying) Pulse 89 Temp 36.3 C (97.4 F) (Temporal) Resp 18 Ht 5' 5" (1.651 m) Wt 145 lb (65.8 kg) [...] ElderReaganParris Mobile Relation: Son Secondary Emergency Contact: Jaylan Friedman Mobile Relation: Son Preferred language: Hungarian Laserist needed? No Mis Olvera MD Division of Hospital Medicine Inpatient Medical Services/[facility] [1] Past Medical History: Diagnosis Date Afib [...] ondansetron, Petrolatum, polyethylene glycol (PEG) 3350 [4] [facility] Geriatric Medicine Inpatient Consult Service Admission Date: 01/05/2025 Assessment Principal Problem: H/O acute pancreatitis Active Problems: Acute pancreatitis, unspecified complication status, unspecified pancreatitis type Plan Dementia -Resides in long-term care. Has been at [facility] for about 2 years per family report. [...] pulmonary hypertension, L1 compression fracture presented from snf care on 01/04/25 with complaints of abdominal [...] Dementia. Son Parris reported she lives in [facility] for 2 years. Diagnosed with Dementia at that time. Cognition declining. Can get irritable and agitated. [facility] nurse reported patient gets agitated easily. Mostly pleasant. May need Standby assist for bathing. Usually dresses self. Uses a wheelchair. Taking Buspar, Donepezil, and Lexapro. Interval History: Remains on general medical/surgical floor . -Patient reports she is at [facility] and is here due to her [...] (96.5 F) (Temporal) Resp 18 Ht 5' 5" (1.651 m) Wt 145 lb (65.8 kg) [...] alert. She is disoriented. Comments: Place is "[facility]" Oriented to month, not date or year. [...] 2.81 01/06/2025 Lab Results Component Value Date DVARGEUP24 1,124 (H) 10/30/2024 No results found for: "VITD25" Reviewed: allergies, previous encounters, social history, imaging, [...] 2 tablet, 2 tablet, Oral, BID, Mis Olvera MD Images from the original note were not included. PHYSICAL THERAPY [facility] Initial Evaluation Name/MRN: Clemencia Friedman ([id number]) Evaluation Date: 01/07/2025 Date of : 1940 Admission Date: 01/05/2025 11:54 PM Age: 84 y.o. [facility]: [facility] A Discharge Recommendation: ECF without PT Assessment [...] grossly WFL Social/Functional History Patient admitted from [facility]. Assistive Equipment: front wheeled walker and wheelchair [...] Safety Safety Devices in place: with nursing agency manager, gait belt Restraints: No Education Education Given To: patient Education Provided: PT Role Education Method: Verbal Barriers to Learning: Education Outcome: Goals Patient Stated Goal: none stated when asked Therapy Time Individual Co-Treatment Co-Evaluation Time In 1130 Time Out 1144 Minutes 14 Joanne Ferreira PT Patient's Physical Therapy Plan of Care supervision is transferred to a [facility] Therapy Services Physical Therapist. Goals and/or [...] be monitored and followed by the diet gastrointestinal technician. BENNIE Pandey Hospitalist Progress Note Subjective: Admit Date: 01/05/2025 PCP: Kathi Juarez MD Room#: W6-629/W6-629 A Chief Complaint Patient presents with Constipation Per patient she has no complaints. Per EMS she is constipated per nursing facility Brief Hospital course: Sommer is a 84 y.o. female with past medical history below who presents with chief complaint listed above. Pt was brought by EMS From [facility] after staff reporting that she was screaming [...] 6.9 6.4 PT/INR: No results for input(s): "PROTIME", "INR" in the last 72 hours. CARDIAC ENZYMES: No results for input(s): "TROPONINI" in the last 72 hours. Procalcitonin: No results found for: "PROCAL" COVID-19 PCR: No results for input(s): "COVID19" in the last 72 hours. Objective: Vitals: BP 140/81 (BP Location: Left arm, Patient Position: Sitting) Pulse 85 Temp (!) 35.8 C (96.5 F) (Temporal) Resp 18 Ht 5' 5" (1.651 m) Wt 145 lb (65.8 kg) [...] Jaylan Friedman Mobile Relation: Son Preferred language: Hungarian Laserist needed? No Mis Olvera MD Division of Hospital Medicine Inpatient Medical Services/[facility] [1] Past Medical History: Diagnosis Date Afib (CMS/HCC) ([facility]) Anxiety CHF (congestive heart failure) (HCC) COPD [...] (PEG) 3350 [4] documented in this encounter [facility] 01-08-2025 Plan of care note Problem: Potential for Compromised Skin Integrity Goal: Skin Integrity is Maintained or Improved Outcome: Progressing Goal: Nutritional status is improving Outcome: Progressing Problem: Urinary Incontinence Goal: Perineal skin integrity is maintained or improved Outcome: Progressing [facility] 01-07-2025 Note Problem: Urinary Inc ontinence Goal: Perineal skin integrity is maintained or improved Outcome: Progressing [facility] 01-07-2025 Plan of care note Problem: Urinary Incontinence Goal: Perineal skin integrity is maintained or improved Outcome: Progressing [facility] 01-07-2025 Plan of care note Problem: Knowledge Deficit Goal: Patient/family/caregiver demonstrates understanding of disease process, treatment plan, medications, and discharge instructions Outcome: Progressing Problem: Potential for Compromised Skin Integrity Goal: Skin Integrity is Maintained or Improved Outcome: Progressing [facility] 01-07-2025 Plan of care note Problem: Potential for Compromised Skin Integrity Goal: Skin Integrity is Maintained or Improved Outcome: Progressing Goal: Nutritional status is improving Outcome: Progressing Problem: Urinary Incontinence Goal: Perineal skin integrity is maintained or improved Outcome: Progressing [facility] 01-06-2025 Consult note Associated Order (s): IP CONSULT TO GERIATRICS Images from the original note were not included. [facility] Geriatric Medicine Inpatient Consult Service Admission [...] Resides in long-term care. Has been at [facility] for about 2 years per family report. [...] HPI 84 y.o. year-old female presented from [facility] for pain on 01/05/2025. Staff from [facility] reported that she was screaming [...] Quick Cognitive Screen (QCS): Positive QCS Intervention windows mobile developer completed: Pt deemed to not be an elopement risk Nursing Delirium Screen (Nu-Desc): Nursing Delirium Symptom Checklist Total Score: 2 Known to the [facility]? NoSeen by geriatric medicine inpatient team at [facility] in October. Allergies[1] Medications reviewed in [...] Living arrangement: Long-term care has lived in [facility] for the last 2 years. Household safety problems: N/A Driving safety concerns: Does not drive Elder abuse: Community resources: . N/A Healthcare Power of [place]: yes Living Will: unknown Code Status: Full [...] (97.1 F) (Temporal) Resp 18 Ht 5' 5" (1.651 m) Wt 145 lb (65.8 kg) [...] Signed Date/Time: 10/29/2024 10:55 AM EDT === 04/03/24 === MR BRAIN W AND WO CONTRAST [...] history. [4] No family history on file. [facility] 01-06-2025 Consult note Associated Order (s): IP CONSULT TO GERIATRICS Images from the original note were not included. [facility] Geriatric Medicine Inpatient Consult Service Admission [...] Resides in long-term care. Has been at [facility] for about 2 years per family report. [...] HPI 84 y.o. year-old female presented from snf care for pain on 01/05/2025. Staff from [facility] reported that she was screaming [...] Quick Cognitive Screen (QCS): Positive QCS Intervention windows mobile developer completed: Pt deemed to not be an elopement risk Nursing Delirium Screen (Nu-Desc): Nursing Delirium Symptom Checklist Total Score: 2 Known to the [facility]? NoSeen by geriatric medicine inpatient team at [facility] in October. Allergies[1] Medications reviewed in [...] Living arrangement: Long-term care has lived in [facility] for the last 2 years. Household safety problems: N/A Driving safety concerns: Does not drive Elder abuse: Community resources: . N/A Healthcare Power of [place]: yes Living Will: unknown Code Status: Full [...] (97.1 F) (Temporal) Resp 18 Ht 5' 5" (1.651 m) Wt 145 lb (65.8 kg) [...] history on file. documented in this encounter [facility] 01-06-2025 History and physical note Attending History and Physical Admit Date: 01/05/2025 PCP: Kathi Juarez MD CHIEF COMPLAINT: concern for agitation vs abd pain Reason for Admission: History Obtained From: ER note, transfer from [facility] ER HISTORY OF PRESENT ILLNESS: Sommer is a 84 y.o. female with past medical history below who presents with chief complaint listed above. Pt was brought by EMS From [facility] after staff reporting that she was screaming [...] (97.1 F) (Temporal) Resp 18 Ht 5' 5" (1.651 m) Wt 145 lb (65.8 kg) [...] PROT 6.9 PT/INR: No results for input(s): "PROTIME", "INR" in the last 72 hours. CARDIAC ENZYMES: No results for input(s): "TROPONINI" in the last 72 hours. Procalcitonin: No results found for: "PROCAL" Urine Culture: Results for orders placed or [...] ug/ml COVID-19 PCR: No results for input(s): "COVID19" in the last 72 hours. I reviewed: [...] Restrictions Full code Inpatient consult to Geriatric Medicine--[facility]; severe dementia with concern for agitation [...] Doxycycline Other Reaction(s): Not available Gabapentin Propoxyphene [facility] 01-06-2025 Note [facility] 01-06-2025 History and physical note Attending History and Physical Admit Date: 01/05/2025 PCP: Kathi Juarez MD CHIEF COMPLAINT: concern for agitation vs abd pain Reason for Admission: History Obtained From: ER note, transfer from [facility] ER HISTORY OF PRESENT ILLNESS: Sommer is a 84 y.o. female with past medical history below who presents with chief complaint listed above. Pt was brought by EMS From [facility] after staff reporting that she was screaming [...] (97.1 F) (Temporal) Resp 18 Ht 5' 5" (1.651 m) Wt 145 lb (65.8 kg) [...] PROT 6.9 PT/INR: No results for input(s): "PROTIME", "INR" in the last 72 hours. CARDIAC ENZYMES: No results for input(s): "TROPONINI" in the last 72 hours. Procalcitonin: No results found for: "PROCAL" Urine Culture: Results for orders placed or [...] ug/ml COVID-19 PCR: No results for input(s): "COVID19" in the last 72 hours. I reviewed: [...] Restrictions Full code Inpatient consult to Geriatric Medicine--[facility]; severe dementia with concern for agitation [...] available Gabapentin Propoxyphene documented in this encounter [facility] 01-06-2025 Emergency department Note Report called to BETTY Banda RN [facility] 01-06-2025 Emergency department Note Report called [...] who presents to the emergency department from [facility] for abdominal pain. Per transporting EMS, they [...] (Temporal) Resp 16 Ht 1.651 m (5' 5") Wt 65.8 kg (145 lb) SpO2 95% [...] culture. Procedure Abnormality Status --------- ------ Urine culture[[id number]] In process Urine Hold Cup[[id number]] Please view results for these tests on the individual orders. URINE CULTURE URINE HOLD CUP CBC WITH AUTO DIFFERENTIAL COMPREHENSIVE METABOLIC PANEL WITH MG REFLEX Narrative: The following orders were created for panel order Comprehensive Metabolic Panel w/ Mg Reflex. Procedure Abnormality Status --------- ------ Comprehensive metabolic ...[[id number]] Please view results for these tests on [...] who presents to the emergency department from [facility] for abdominal pain. Per transporting EMS, they [...] endorsed leg pain. Patient admitted medically to [facility] service for continued management. ED Medications managed: Medications morphine injection 2 mg (2 mg IntraVENous Not Given 01/06/257) donepezil (Aricept) tablet 10 mg (10 mg Oral Given 01/06/252234) escitalopram (Lexapro) tablet 15 mg (15 mg Oral Given 01/06/251215) metoprolol tartrate (Lopressor) tablet 25 mg (25 mg Oral Given 01/06/252234) acetaminophen (Tylenol) tablet 650 mg (650 mg Oral Given 01/06/25 153) Or acetaminophen (Tylenol) suppository 650 mg ( Rectal See Alternative 01/06/25 153) ondansetron ODT (Zofran-ODT) disintegrating tablet 4 mg [...] IVPB Mini-Bag Plus (0 mg IntraVENous Stopped 01/06/25 6260) PROCEDURES: Unless otherwise noted below, none Procedures [...] oriented to self. documented in this encounter [facility] 01-05-2025 Emergency department Triage note The patient came in via ambulance. Per ems the nursing facility stated that the patient was screaming in pain and is complaining of constipation. When squad arrived the patient denies any pain or discomfort. The patient stated to this nurse she does not know why she is here. Patient is oriented to self. [facility] 01-05-2025 Physician Emergency department Note EMERGENCY [...] who presents to the emergency department from [facility] for abdominal pain. Per transporting EMS, they [...] (Temporal) Resp 16 Ht 1.651 m (5' 5") Wt 65.8 kg (145 lb) SpO2 95% [...] culture. Procedure Abnormality Status --------- ------ Urine culture[[id number]] In process Urine Hold Cup[[id number]] Please view results for these tests on the individual orders. URINE CULTURE URINE HOLD CUP CBC WITH AUTO DIFFERENTIAL COMPREHENSIVE METABOLIC PANEL WITH MG REFLEX Narrative: The following orders were created for panel order Comprehensive Metabolic Panel w/ Mg Reflex. Procedure Abnormality Status --------- ------ Comprehensive metabolic ...[[id number]] Please view results for these tests on the individual orders. COMPREHENSIVE METABOLIC PANEL All other labs were within normal range or not returned as of this dictation. EMERGENCY DEPARTMENT COURSE and DIFFERENTIAL DIAGNOSIS/MDM: Vitals: Vitals: 01/06/25 0650 01/06/25 0809 01/06/25 0900 01/06/252 BP: (!) 153/88 (!) 156/98 (!) 164/82 [...] who presents to the emergency department from [facility] for abdominal pain. Per transporting EMS, they [...] endorsed leg pain. Patient admitted medically to [facility] service for continued management. ED Medications managed: Medications morphine injection 2 mg (2 mg IntraVENous Not Given 01/06/257) donepezil (Aricept) tablet 10 mg (10 mg Oral Given 01/06/252234) escitalopram (Lexapro) tablet 15 mg (15 mg Oral Given 01/06/25 1216) metoprolol tartrate (Lopressor) tablet 25 mg (25 mg Oral Given 01/06/252234) acetaminophen (Tylenol) tablet 650 mg (650 mg Oral Given 01/06/251533) Or acetaminophen (Tylenol) suppository 650 mg ( Rectal See Alternative 01/06/25 153) ondansetron ODT (Zofran-ODT) disintegrating tablet 4 mg [...] Year: No Luana Trinidad DO 01/07/25 0048 [facility] 11-19-2024 History of Present illness Narrative [facility] - [address] [facility] [address] Dept: [phone] Dept Visit type: New : 1940 Chief Complaint: Chief Complaint Patient presents with New Patient Congestive Heart Failure Atrial Fibrillation History of Present Illness: Sommer Friedman is a 84 y.o. female who was referred here for atrial fibrillation. She had been living in [place] to take care of her mother who [...] Weight: 132 lb (59.9 kg) Height: 5' 4" (1.626 m) Body mass index is 22.66 [...] Controlled. 3. Dementia. documented in this encounter [facility] 11-01-2024 Nurse Note Report called to [facility] Kilpatrick RN. [facility] 11-01-2024 Nurse Note Report called to [facility] Kilpatrick RN. Attempt to call repost to [facility] for nut picker time at 1900. The nurse was not available that this time. Will attempt again Call to family. Voicemail left for kaushal Huitron to update him as well. Patients updated home meds list was not on the patients file so called [facility] for home meds list . They fax thrice but only can get front page . Informed them about the fax received but can't resolve this problem at the moment. alf wants us to call after 0830 for follow up. documented in this encounter [facility] 11-01-2024 Nurse Note Attempt to call repost to [facility] for nut picker time at 1900. The nurse was not available that this time. Will attempt again Call to family. Voicemail left for kaushal Huitron to update him as well. [facility] 11-01-2024 Note Formatting of this n ote might be different from the original. [facility] evening at 7:00. ( That was next available in [place]. [facility] messaged the snf to notify them of dc time. Spoke with patients kaushal Huitron to discuss dc planning. Report number provided to the bedside nurse. [facility] 11-01-2024 Note Formatting of this n ote might be different from the original. Dc to [facility] this evening at 7:00. ( That was next available in [facility] [place]. [facility] messaged the snf to notify them of dc time. Spoke with patients kaushal Huitron to discuss dc planning. Report number provided to the bedside nurse. [facility] 11-01-2024 Miscellaneous Notes Dc to [facility] this evening at 7:00. ( That was next available in [facility] [place]. [facility] messaged the snf to notify them of dc time. Spoke with patients kaushal Huitron to discuss dc planning. Report number provided to the bedside nurse. Discharge med list transmitted to return back to [facility] per [facility] request. Care Management Progress Note DC order noted. 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 SW to set up transport. Length of Stay (Days): 2 GMLOS: 3.9 Sent updated notes to return back to [facility] per TCC request. Await review and response regarding ability to accept. TCC notified. Problem: Knowledge Deficit Goal: Patient/family/caregiver demonstrates understanding of disease process, treatment plan, medications, and discharge instructions 11/01/2024 0558 by Odette Anand RN Outcome: Progressing 11/01/2024 0509 by Odette Anand RN Outcome: Progressing Problem: Potential for Compromised Skin Integrity Goal: Skin Integrity is Maintained or Improved 11/01/2024 05 by Odette Anand RN Outcome: Progressing 11/01/2024 0509 by Odette Anand RN Outcome: Progressing Goal: Nutritional status is improving 11/01/2024 0558 by Odette Anand RN Outcome: Progressing 11/01/2024 0509 by Odette Anand RN Outcome: Progressing Problem: Urinary Incontinence Goal: Perineal skin integrity is maintained or improved 11/01/2024 05 by Odette Anand RN Outcome: Progressing 11/01/2024 050 by Odette Anand RN Outcome: Progressing Problem: Potential for Falls Goal: I will remain free of falls 11/01/2024 05 by Odette Anand RN Outcome: Progressing 11/01/2024 0509 by Odette Anand RN Outcome: Progressing Problem: Discharge Barriers Goal: My discharge needs are met 11/01/2024557 by Odette Anand RN Outcome: Progressing [...] Progressing Referral placed to return back to [facility] via [facility] per [facility] request. Await review and response regarding ability to accept. TCC notified. Care Management Progress Note Spoke with pt's son Parris and he states he is okay with pt going back to [facility]. SHOULDER PAD MOLDER tasked to make ICF return to [facility]. Length of Stay (Days): 1 GMLOS: No [...] Outcome: Not Progressing documented in this encounter [facility] 11-01-2024 Note Formatting of this n ote might be different from the original. Discharge med list transmitted to return back to [facility] via [facility] per TCC request. [facility] 11-01-2024 Note Formatting of this n ote might be different from the original. Discharge med list transmitted to return back to [facility] via [facility] per TCC request. [facility] 11-01-2024 Note Formatting of this n ote might be different from the original. Care Management Progress Note DC order noted. SHOULDER PAD MOLDER tasked to send DC packet and MAR to [facility] where pt is snf care there and bedhold. SW to set up transport. Length of Stay (Days): 2 GMLOS: 3.9 [facility] 11-01-2024 Note Formatting of this n ote might be different from the original. Care Management Progress Note DC order noted. SHOULDER PAD MOLDER tasked to send DC packet and MAR to [facility] where pt is snf care there and bedhold. SW to set up transport. Length of Stay (Days): 2 GMLOS: 3.9 [facility] 11-01-2024 Note [facility] 11-01-2024 Hospital Discharge instructions Malathi Stern RN [...] Unit/Room#: B2-245/B2-245 A Discharging Unit Phone Number: [phone] Emergency Contact: Extended Emergency Contact Information Primary Emergency Contact: Parris Friedman Mobile Relation: Son Secondary Emergency Contact: Jaylan Friedman Mobile Relation: Son Preferred language: Hungarian Laserist needed? No Past Surgical History: History reviewed. [...] (97.1 F) (Temporal) Resp 16 Ht 5' 4" (1.626 m) Wt 128 lb (58.1 kg) [...] assistance Toileting Total assistance Feeding Minimal assistance Water Sponger Independent Med Delivery yes Wound Care Documentation [...] and clothing RN SIGNATURE: Patient returning to [place] [id number] [phone] [facility] PHYSICIAN SECTION Name: Sommer Friedman Prognosis: good Condition at Discharge: stable Rehab Potential (if transferring to Rehab): fair Recommended Labs or Other Treatments After Discharge: BMP/CBC on 11/06/2024 The individual is being admitted to a nursing facility directly from an [facility] or a unit of a [facility] that is not operated by or licensed by [facility] under section 5119.14 or 5160-3-15.1 5 The [...] through Care Everywhere.Heart Failure and Atrial Fibrillation (Hungarian)documented in this encounter [facility] 11-01-2024 History of Present illness Narrative Images from the original note were not included. OCCUPATIONAL THERAPY [facility] Initial Evaluation Name/MRN: Clemencia Friedman ([id number]) Evaluation Date: 11/01/2024 Date of : 1940 Admission Date: 10/29/2024 9:29 AM Age: 84 y.o. Room/Bed: [facility] A Discharge Recommendation: [facility] Facility Assessment IMPRESSION: Pt admitted to ED [...] Pt denies any current pain. But says "ouch" when moving Past Medical History: Past Medical [...] heart failure with preserved ejection fraction (HFpEF) ([facility]) 10/29/2024 Lumbago 04/12/2024 Low back pain without sciatica, unspecified back pain laterality, unspecified chronicity 04/10/2024 Cognitive communication deficit 12/22/2023 Constipation 08/10/2022 Dementia ([facility]) 08/02/2022 Spinal stenosis of lumbar region 03/19/2020 [...] events, decreased short term memory, and decreased exterminator termite memory - Safety judgement: decreased awareness of [...] to Place Social/Functional History Patient admitted from [facility] . Assistive Equipment: front wheeled walker and [...] Daily Activity Raw Score: 17 ADL Inpatient [facility] G-Code Modifier: CK Plan Pt would benefit [...] In 1131 Time Out 1156 Minutes 25 Angeline Luna OT Patient's Occupational Therapy Plan of Care supervision is transferred to a [facility] Therapy Services Occupational Therapist. Goals and/or treatment plan was established in collaboration with patient/family/other representatives. [facility] Geriatric Medicine Inpatient Consult Service Admission Date: 10/29/2024 Assessment Principal Problem: Acute heart failure with preserved ejection fraction (HFpEF) (HCC) Active Problems: Dementia (HCC) Atrial fibrillation, permanent (HCC) Debility Essential hypertension Plan Dementia --Lives at [facility] for 2 years --continue Donepezil 10mg daily [...] but it has been on hold at [facility] since recent hospitalization. Continue to use only [...] year-old female admitted to acute care from [facility] for SOB. Admitted with acute heart failure, [...] (97.1 F) (Temporal) Resp 16 Ht 5' 4" (1.626 m) Wt 128 lb (58.1 kg) SpO2 94% BMI 21.97 kg/m Intake/Output Summary (Last 24 hours) at 11/01/2024 0931 Last data filed at 10/31/2024 1700 Gross per 24 hour Intake 200 ml Output -- Net 200 ml Wt Readings from Last 3 Encounters: 10/29/24 128 lb (58.1 kg) 03/06/25 135 lb (61.2 kg) 10/18/24 135 lb (61.2 kg) Current Facility-Administered Medications: acetaminophen (Tylenol) tablet 650 mg, 650 mg, Oral, q6h PRN OR acetaminophen (Tylenol) suppository 650 mg, 650 mg, Rectal, q6h PRN, Travis Goncalves MD apixaban (Eliquis) tablet 2.5 mg, 2.5 mg, Oral, BID, Travis Goncalves MD, 2.5 mg at 10/31/242101 busPIRone (Buspar) tablet 10 mg, 10 mg, Oral, BID, Amy Mathew, [employer] calcium carbonate (Tums) chewable tablet 500 mg, 500 mg, Oral, PRN, Travis Goncalves MD donepezil (Aricept) tablet 10 mg, 10 mg, Oral, Nightly, Travis Goncalves MD, 10 mg at 10/31/242101 escitalopram (Lexapro) tablet 15 mg, 15 mg, Oral, Daily, Travis Goncalves MD, 15 mg at 10/31/24 0915 furosemide (Lasix) tablet 40 mg, 40 mg, Oral, Daily, Marlyn Montenegro, [facility], 40 mg at 10/31/24 1333 hydrALAZINE (Apresoline) [...] Travis Goncalves MD, 4 mg at 10/30/24 021 polyethylene glycol (PEG) 3350 (Miralax) packet 17 [...] 12.5 mg, Oral, BID PRN, Elisabeth Ezzie, VENDING TECHNICIAN - [employer], 12.5 mg at 11/01/24 0204 tiZANidine (Zanaflex) tablet 4 mg, 4 mg, Oral, TID PRN, Elisabeth Ezzie, VENDING TECHNICIAN - [employer], 4 mg at 10/31/242100 traZODone (Desyrel) tablet 25 mg, 25 mg, [...] 2.48 10/17/2024 Lab Results Component Value Date [id number] 1,124 (H) 10/30/2024 No results found for: "VITD25" Reviewed: allergies, previous encounters, social history, imaging, active problem lists, medications, and labs [facility] Geriatric Medicine Inpatient Consult Service Admission Date: 10/29/2024 Assessment Principal Problem: Acute heart failure with preserved ejection fraction (HFpEF) ([facility]) Active Problems: Dementia (HCC) Atrial fibrillation, permanent ([facility]) Debility Essential hypertension Plan Dementia --Lives at [facility] for 2 years --continue Donepezil 10mg daily [...] stenosis, heart failure, COPD, Dementia --lives in [facility] --PT and OT --Anticipate return to SNF/LTC at discharge --10/31: stable. Continue plan. Depression/Anxiety --Continue Lexapro 15mg daily. Recommend as outpatient lowering to 10mg daily. Can consider switching to Sertraline outpatient. --Continue Buspar 5mg BID --10/31: +anxiety. Consider increasing Buspar. Chronic pain --takes Tizanidine 4mg TID but it has been on hold at [facility] since recent hospitalization. Changed to PRN. May have contributed to confusion. -Monitor LFTs, consider adding scheduled Tylenol. --10/31: Discussed with nursing to treat pain and see if mood improves. Follow-up: will follow with you Subjective Chief Complaint: I want to go home Geriatrics consulted for functional and cognitive decline/dementia" HPI- The patient is known to me. 84 y.o. year-old female with PMH of atrial fibrillation, anxiety, CHF, COPD, Dementia, Depression, HLD, HTN, Hypothyroidism, Insomnia, Pulmonary hypertension, L1 Burst fracture, spinal stenosis presented to [facility] from [facility] on 10/29 with complaints of shortness of [...] any longer and feels fine. Looks at [employer] and states she is at [employer]. States she does not know where she normally lives but just wants to get back there. States it is Sep and if not Fe than October. Denies pain. -Nursing reports increased [...] (97.5 F) (Temporal) Resp 16 Ht 5' 4" (1.626 m) Wt 128 lb (58.1 kg) [...] mg, 40 mg, Oral, Daily, Marlyn Montenegro, VENDING TECHNICIAN - [employer], 40 mg at 10/31/24 1333 hydrALAZINE (Apresoline) [...] 4 mg, Oral, TID PRN, Elisabeth Ezzie, VENDING TECHNICIAN - [employer] traZODone (Desyrel) tablet 25 mg, 25 mg, [...] 2.48 10/17/2024 Lab Results Component Value Date [id number] 1,124 (H) 10/30/2024 No results found for: "VITD25" Reviewed: allergies, previous encounters, active problem lists, medications, and labs [facility] Cardiology /Electrophysiology Progress Note HPI / Interval History: Clemencia Friedman has as history of Afib on OAC (failed sotalol and diltiazem at [facility] due to bradycardia, HTN, dementia, [...] the hospital. She states she wants to "go home", but is unsure where that is. She [...] primary service arrange f/u with patient's outpatient personal companion 1-2 wks. [] Recommended; unable to arrange at this time, will arrange post-discharge [x] Arranged as follows: Dr. Conner 11/19/2024 at 1:00pm If there are any questions/concerns, please contact the covering provider. If no answer by Secure Chat, please call the cardiology office to obtain appropriate covering [employer]/physician. Medications: apixaban, 2.5 mg, Oral, BID busPIRone, [...] found for: TROPDELTBASE No results found for: "TROPHS3" No results found for: TROPDELTSEC Recent Labs [...] 1022 BNP 11,795* No results for input(s): "TRIG", "HDL", "LDLCALC", "CHOL" in the last 72 hours. No results [...] 7.3 6.8 PT/INR: No results for input(s): "PROTIME", "INR" in the last 72 hours. CARDIAC ENZYMES: No results for input(s): "TROPONINI" in the last 72 hours. Procalcitonin: No results found for: "PROCAL" COVID-19 PCR: No results for input(s): "COVID19" in the last 72 hours. Objective: Vitals: BP 143/76 (BP Location: Right arm, Patient Position: Lying) Pulse 87 Temp 36.4 C (97.6 F) (Temporal) Resp 16 Ht 5' 4" (1.626 m) Wt 128 lb (58.1 kg) [...] Jaylan Friedman Mobile Relation: Son Preferred language: Hungarian Laserist needed? No Ag Trent MD Division of Hospitalist Medicine Acute [facility] Nutrition rescreen complete. Pt assigned a level one for nutrition care. Images from the original note were not included. PHYSICAL THERAPY [facility] Initial Evaluation Name/MRN: Clemencia Friedman ([id number]) Evaluation Date: 10/30/2024 Date of : 1940 Admission Date: 10/29/2024 9:29 AM Age: 84 y.o. Room/Bed: [facility] A Discharge Recommendation: [facility] Facility Other: TBD at next level of [...] failure (HCC) 10/29/2024 New onset atrial fibrillation ([facility]) 10/17/2024 Lumbago 04/12/2024 Low back pain without [...] Hearing: impaired Social/Functional History Patient admitted from [facility] . Assistive Equipment: front wheeled walker and [...] Raw Score (No Stairs) : 15 [facility] Score: Static standing (1 or more [...] of Care supervision is transferred to a [facility] Therapy Services Physical Therapist. Goals and/or [...] PROT 7.3 PT/INR: No results for input(s): "PROTIME", "INR" in the last 72 hours. CARDIAC ENZYMES: No results for input(s): "TROPONINI" in the last 72 hours. Procalcitonin: No results found for: "PROCAL" COVID-19 PCR: No results for input(s): "COVID19" in the last 72 hours. Objective: Vitals: BP (!) 172/94 (BP Location: Right arm, Patient Position: Lying) Pulse 95 Temp 36.2 C (97.1 F) (Temporal) Resp 22 Ht 5' 4" (1.626 m) Wt 128 lb (58.1 kg) [...] Date - 11/01-11/02 - Location - Skilled Facility/ICF - Pending [...] Jaylan Friedman Mobile Relation: Son Preferred language: Hungarian Laserist needed? No Ag Trent MD Division of Hospitalist Medicine [facility] documented in this encounter [facility] 11-01-2024 Note Formatting of this n ote might be different from the original. Sent updated notes to return back to [facility] via [facility] per TCC request. Await review and response regarding ability to accept. TCC notified. [facility] 11-01-2024 Note Formatting of this n ote might be different from the original. Sent updated notes to return back to [facility] via [facility] per TCC request. Await review and response regarding ability to accept. TCC notified. [facility] 11-01-2024 Plan of care note Problem: Knowledge Deficit Goal: Patient/family/caregiver demonstrates understanding of disease process, treatment plan, medications, and discharge instructions 11/01/2024 0558 by Odette Anand RN Outcome: Progressing 11/01/2024 0509 by Odette Anand RN Outcome: Progressing Problem: Potential for Compromised Skin Integrity Goal: Skin Integrity is Maintained or Improved 11/01/2024 0558 by Odette Anand RN Outcome: [...] by Odette Anand RN Outcome: Progressing T [facility] 11-01-2024 Plan of care note Problem: [...] My discharge needs are met Outcome: Progressing T [facility] 10-31-2024 Consult note Associated Order (s): [...] include pt as much as possible -NOK: tunrer Huitron [phone], Jaylan [phone]--> no paperwork on chart but kaushal Huitron shares he thinks Jaylan is medical POA -goals of care: For patient to get out of the hospital, ongoing GOC discussions -CHAIR POST MACHINE OPERATOR: Patient residing at [facility] -see subjective for details of conversation Dementia -Geriatrics consulted -pt with gradual cognitive decline, irritable at baseline gets -A&Ox2 during exam -resides at [facility] ECF -On Aricept Anxiety Agitation Depression -BuSpar BID -Lexapro -PRN seroquel Afib HFpEF -Cardiology following -BNP 11,795 -ECHO--> Findings consistent with mild concentric hypertrophy. Normal left ventricular systolic function. EF by 2D [employer] is 62% -Eliquis, metoprolol -transition IV lasix to PO today Debility -resides at [facility] -PT/OT rec SNF -Uses walker and wheelchair [...] of vomiting and diarrhea. Was evaluated at [place] ED and found to have elevated BNP. [...] just be laying around without quality of life." Unsure her wishes regarding CPR. Encouraged her to discuss this with her sons. All questions answered. -Called patient's son Parris. Introduced self and role and provided medical updates. Parris shares that he thinks his brother Jaylan is medical POA and that he is financial POA. He shares that pt used to [employer] a lot back in the day [...] the difference between full code, DNR-CCA and DNR-BIOLOGICAL SCIENCES PROFESSOR. Encourage him and his brother to think [...] status: Children: 2 adult child(essence) Living status: alf Work history: Unknown [place] status: No Adventism maria fernanda: Islam ROS: See palliative care ROS/ESAS below; All other systems were reviewed and are negative. [place] Symptom Assessment Score [place] Score Pain Score (if non-verbal, add .FLACC [...] (98.6 F) (Temporal) Resp 14 Ht 5' 4" (1.626 m) Wt 128 lb (58.1 kg) [...] Ferro MD at 11/01/2024 11:36 AM EDT [facility]: 10-31-2024 Consult note Associated Order (s): [...] as much as possible -NOK: turner Huitron [phone], Jaylan [phone]--> no paperwork on chart but son Parris shares he thinks Jaylan is medical POA -goals of care: For patient to get out of the hospital, ongoing GOC discussions -CHAIR POST MACHINE OPERATOR: Patient residing at [facility] -see subjective for details of conversation Dementia -Geriatrics consulted -pt with gradual cognitive decline, irritable at baseline gets -A&Ox2 during exam -resides at [facility] ECF -On Aricept Anxiety Agitation Depression -BuSpar BID -Lexapro -PRN seroquel Afib HFpEF -Cardiology following -BNP 11,795 -ECHO--> Findings consistent with mild concentric hypertrophy. Normal left ventricular systolic function. EF by 2D Simpsons Biplane is 62% -Eliquis, metoprolol -transition IV lasix to PO today Debility -resides at [facility] -PT/OT rec SNF -Uses walker and wheelchair [...] of vomiting and diarrhea. Was evaluated at [facility] and found to have elevated BNP. [...] pain during exam. Last documented BM 10/29. [facility] discussions: Met with patient at bedside. [...] just be laying around without quality of life." Unsure her wishes regarding CPR. Encouraged her to discuss this with her sons. All questions answered. -Called patient's son Parris. Introduced self and role and provided medical updates. Parris shares that he thinks his brother Jaylan is medical POA and that he is financial POA. He shares that pt used to alliance party a lot back in the day [...] the difference between full code, DNR-CCA and DNR-BIOLOGICAL SCIENCES PROFESSOR. Encourage him and his brother to think [...] status: Children: 2 adult child(essence) Living status: alf Work history: Unknown [place] status: No Adventism maria fernanda: Islam ROS: See palliative care ROS/ESAS below; All other systems were reviewed and are negative. [place] Symptom Assessment Score [place] Score Pain Score (if non-verbal, add .FLACC [...] (98.6 F) (Temporal) Resp 14 Ht 5' 4" (1.626 m) Wt 128 lb (58.1 kg) [...] EDT Associated Order(s): IP CONSULT TO GERIATRICS [facility] Geriatric Medicine Inpatient Consult Service Admission Date: 10/29/2024 Admission Status: INPATIENT Chief Complaint: confusion Reason for Appointment Geriatrics consulted for functional and cognitive decline/dementia" Assessment & Plan Principal Problem: Acute heart failure with preserved ejection fraction (HFpEF) (HCC) Active Problems: Dementia (HCC) Atrial fibrillation, permanent (HCC) Debility Essential hypertension Dementia --Lives at [facility] for 2 years --continue Donepezil 10mg daily [...] but it has been on hold at [facility] since recent hospitalization. Will change to PRN. [...] presented to [facility] from [facility] on 10/29 with complaints of shortness of breath. Admitted with acute heart failure, atrial fibrillation with RVR. -Recently hospitalized 10/17 - 10/19 ago for CHF, atrial fibrillation with RVR and proteus UTI. -ER visit 10/24 for altered mental status. Discharged back to facility. Nursing Delirium Screen (Nu-Desc): Nursing Delirium Symptom Checklist Total Score: 0 Conversation with patient: --Patient states used to live in [place]. She has been living in an apartment and was going to have her own room. She states she is here because she "is losing her mind". Looks at board and states she is in [place] at [facility]. Thinks it is end of October 2024. States her son Parris is her main contact and POA. Conversation with caregiver: Kaushal Huitron . -Lives in [facility] since 2 years in Apr. Living in [place] prior to that. Diagnosed with Dementia then. Has short term memory loss. Repeating. They moved her room recently closer to nursing station. -Memory getting worse more recently. -Mood is ok. Always has been impatient. Can get irritable quickly. Agitated at times. Nurse at [facility] - patient gets very anxious easily. Very pleasant. May need Standby assist for bathing. Usually dresses self. Uses a wheelchair. Reviewed medications. Does take Buspar, Donepezil, Lexapro as ordered. Has been on Tizanidine 4mg TID, it has been on hold since she was in the hospital recently. Nurse unsure how long she has been on this. Advance Care Planning Healthcare Power of Mill Turner: Yes kaushal [employer] Power of Mill Turner: Yes, kaushal Huitron Code Status: Full Code [...] (97.1 F) (Temporal) Resp 18 Ht 5' 4" (1.626 m) Wt 128 lb (58.1 kg) [...] TSH 2.48 10/17/2024 No components found for: "B12" No results found for: "VITD25" Reviewed: active problem list, medication list, allergies, social history, notes from last encounter, notes from last several encounters, lab results, imaging Follow-up: will follow with you ZULAY Rossi CNP 10/30/24 2:02 PM Associated Order(s): IP CONSULT TO CARDIOLOGY [facility] [place] [facility] Cardiology Consult Note Reason for Consult/Chief Complaint: Afib Established personal [facility]. History of Present Illness: Sommer Friedman is a 84 y.o. female A fib on OAC, hypertension, dementia, and COPD. Lives at SNF. Failed sotalol and diltiazem when at [facility] due to bradycardia. Seen at [facility] for cardiology 08/2024. Do not see f/u since 08/2024 at [facility]. [facility] - Sep 2024 adm for Afib/HF. Conservative mgt Stable in Afib on lopressor 25 bid and Eliquis 2.5. LVEF normal. Plan was to stay at SNF and f/u with [facility] cardiology. Poor ROS due to dementia. Denies CP, SOB, palpitations. Lying in bed comfortable. Chart review says adm w/decr fxn/mobility, decr strength, decr "awareness"/balance. By report an TIMBO at facility saw [...] found for: TROPDELTBASE No results found for: "TROPHS3" No results found for: TROPDELTSEC Recent Labs 10/29/24 1022 10/29/24 1626 10/30/24 0355 NA 138 139 137 K 4.0 3.9 3.4* CL 108* 105 105 CO2 21* 25 20* BUN 18 19 19 CREATININE 1.06 1.17* 1.04 EGFR 52.6* 46.7* 53.8* Recent Labs 10/30/24 0355 WBC 7.8 HGB 13.4 HCT 41.2 MCV 97.9 PLT 315 No results found for: "HGBA1C" Lab Results Component Value Date TSH 2.48 10/17/2024 No results found for: "CHOL" No results found for: "HDL" No results found for: "LDLCALC" No results found for: "TRIG" No results found for: "CHOLHDL" No results found for: LDLCHOLESTER Recent Labs 10/29/24 1022 BNP 11,795* No results for input(s): "INR" in the last 72 hours. Results from last 7 days Lab Units 10/29/24 1022 AST U/L 37* ALT U/L 37* No results found for: "IRON", "TIBC", "FERRITIN" Radiology: CXR: personally reviewed: No acute disease [...] of SERVICE: 10/30/2024 documented in this encounter [facility] 10-30-2024 Consult note Associated Order (s): IP CONSULT TO GERIATRICS [facility] Geriatric Medicine Inpatient Consult Service Admission Date: 10/29/2024 Admission Status: INPATIENT Chief Complaint: confusion Reason for Appointment Geriatrics consulted for functional and cognitive decline/dementia" Assessment & Plan Principal Problem: Acute heart failure with preserved ejection fraction (HFpEF) (HCC) Active Problems: Dementia (HCC) Atrial fibrillation, permanent (HCC) Debility Essential hypertension Dementia --Lives at [facility] for 2 years --continue Donepezil 10mg daily [...] but it has been on hold at [facility] since recent hospitalization. Will change to PRN. [...] presented to [facility] from [facility] on 10/29 with complaints of shortness of breath. Admitted with acute heart failure, atrial fibrillation with RVR. -Recently hospitalized 10/17 - 10/19 ago for CHF, atrial fibrillation with RVR and proteus UTI. -ER visit 10/24 for altered mental status. Discharged back to facility. Nursing Delirium Screen (Nu-Desc): Nursing Delirium Symptom Checklist Total Score: 0 Conversation with patient: --Patient states used to live in [place]. She has been living in an apartment and was going to have her own room. She states she is here because she "is losing her mind". Looks at board and states she is in [place] at [facility]. Thinks it is end of October 2024. States her son Parris is her main contact and POA. Conversation with caregiver: Kaushal Huitron . -Lives in [facility] since 2 years in Apr. Living in [place] prior to that. Diagnosed with Dementia then. Has short term memory loss. Repeating. They moved her room recently closer to nursing station. -Memory getting worse more recently. -Mood is ok. Always has been impatient. Can get irritable quickly. Agitated at times. Nurse at [facility] - patient gets very anxious easily. Very pleasant. May need Standby assist for bathing. Usually dresses self. Uses a wheelchair. Reviewed medications. Does take Buspar, Donepezil, Lexapro as ordered. Has been on Tizanidine 4mg TID, it has been on hold since she was in the hospital recently. Nurse unsure how long she has been on this. Advance Care Planning Healthcare Power of Mill Turner: Yes kaushal [employer] Power of Mill Turner: Yes, kaushal Huitron Code Status: Full Code [...] Travis Goncalves MD, 5 mg at 10/30/24 09 calcium carbonate (Tums) chewable tablet 500 mg, 500 mg, Oral, PRN, Travis Goncalves MD donepezil (Aricept) tablet 10 mg, 10 mg, Oral, Nightly, Travis Goncalves MD escitalopram (Lexapro) tablet 15 mg, 15 mg, Oral, Daily, Travis Goncalves MD, 15 mg at 10/30/24 09 furosemide (Lasix) injection 40 mg, 40 mg, [...] (97.1 F) (Temporal) Resp 18 Ht 5' 4" (1.626 m) Wt 128 lb (58.1 kg) [...] TSH 2.48 10/17/2024 No components found for: "B12" No results found for: "VITD25" Reviewed: active problem list, medication list, allergies, social history, notes from last encounter, notes from last several encounters, lab results, imaging Follow-up: will follow with you ZULAY Rossi CNP 10/30/24 2:02 PM [facility] 10-30-2024 Note Formatting of this n ote might be different from the original. Referral placed to return back to ICF [facility] via [facility] per TCC request. Await review and response regarding ability to accept. TCC notified. [facility] 10-30-2024 Note Formatting of this n ote might be different from the original. Referral placed to return back to ICF [facility] via [facility] per TCC request. Await review and response regarding ability to accept. TCC notified. T [facility] 10-30-2024 Note Referral placed to r eturn back to [facility] via [facility] per TCC request. Await review and response regarding ability to accept. TCC notified. [facility] 10-30-2024 Note Formatting of this n ote might be different from the original. Care Management Progress Note Spoke with pt's son Parris and he states he is okay with pt going back to [facility]. SHOULDER PAD MOLDER tasked to make ICF return to [facility]. Length of Stay (Days): 1 GMLOS: No GMLOS Documented [facility] 10-30-2024 Note Formatting of this n ote might be different from the original. Care Management Progress Note Spoke with pt's son Parris and he states he is okay with pt going back to [facility]. SHOULDER PAD MOLDER tasked to make ICF return to [facility]. Length of Stay (Days): 1 GMLOS: No GMLOS Documented [facility] 10-30-2024 Consult note Associated Order (s): IP CONSULT TO CARDIOLOGY [facility] [place] [facility] Cardiology Consult Note Reason for Consult/Chief Complaint: Afib Established personal companion: Joana Sánchez MD. History of Present Illness: Sommer Friedman is a 84 y.o. female A fib on OAC, hypertension, dementia, and COPD. Lives at SNF. Failed sotalol and diltiazem when at [facility] due to bradycardia. Seen at [facility] for cardiology 08/2024. Do not see f/u since 08/2024 at [facility]. [facility] - Sep 2024 adm for Afib/HF. Conservative mgt Stable in Afib on lopressor 25 bid and Eliquis 2.5. LVEF normal. Plan was to stay at SNF and f/u with [facility] cardiology. Poor ROS due to dementia. Denies CP, SOB, palpitations. Lying in bed comfortable. Chart review says adm w/decr fxn/mobility, decr strength, decr "awareness"/balance. By report an TIMBO at facility saw [...] found for: TROPDELTBASE No results found for: "TROPHS3" No results found for: TROPDELTSEC Recent Labs 10/29/24 1022 10/29/24 1626 10/30/24 0355 NA 138 139 137 K 4.0 3.9 3.4* CL 108* 105 105 CO2 21* 25 20* BUN 18 19 19 CREATININE 1.06 1.17* 1.04 EGFR 52.6* 46.7* 53.8* Recent Labs 10/30/24 0355 WBC 7.8 HGB 13.4 HCT 41.2 MCV 97.9 PLT 315 No results found for: "HGBA1C" Lab Results Component Value Date TSH 2.48 10/17/2024 No results found for: "CHOL" No results found for: "HDL" No results found for: "LDLCALC" No results found for: "TRIG" No results found for: "CHOLHDL" No results found for: LDLCHOLESTER Recent Labs 10/29/24 1022 BNP 11,795* No results for input(s): "INR" in the last 72 hours. Results from last 7 days Lab Units 10/29/24 1022 AST U/L 37* ALT U/L 37* No results found for: "IRON", "TIBC", "FERRITIN" Radiology: CXR: personally reviewed: No acute disease [...] Casey Elkins MD DATE of SERVICE: 10/30/2024 [facility] [employer] 10-30-2024 Nurse Note Patients updated home meds list was not on the patients file so called [facility] for home meds list . They fax thrice but only can get front page . Informed them about the fax received but can't resolve this problem at the moment. alf wants us to call after 0830 for follow up. T [facility] [employer] 10-30-2024 Plan of care note Problem: Potential [...] falls Outcome: Not Progressing [facility] 10-30-2024 History and physical note History and Physical [facility] Sommer Friedman : 1940 AGE 84 [...] name and date. She was currently at [facility]. There she was sent over to [facility] ED for rapid heart rate. Also reports that she had a couple episodes of vomiting couple episodes of nonbloody diarrhea. She was seen at [facility] had elevated BNP was given some furosemide [...] Past Medical History: Diagnosis Date Afib (CMS/HCC) ([facility]LY [facility]) Anxiety CHF (congestive heart failure) ([facility]) COPD (chronic obstructive pulmonary disease) ([facility]) Dementia ([facility]) Depression Hyperlipidemia Hypertension Hypothyroid Insomnia Pulmonary HTN ([facility]) History reviewed. No pertinent surgical history. Allergies [...] C (98.5 F) Resp 16 Ht 5' 4" (1.626 m) Wt 128 lb (58.1 kg) [...] 10/29/2024 350 QTC Interval 10/29/2024 467 P [place] 10/29/2024 0 QRS [place] 10/29/2024 -40 T Wave [place] 10/29/2024 122 FL Interval 10/29/2024 0 SODIUM 10/29/2024 138 POTASSIUM [...] 10/29/2024 350 QTC Interval 10/29/2024 462 P [place] 10/29/2024 0 QRS [place] 10/29/2024 -52 T Wave [place] 10/29/2024 0 FL Interval 10/29/2024 0 2h Troponin HS (Serial [...] QT Interval 350 QTC Interval 462 P [place] 0 QRS [place] -52 T Wave [place] 0 FL Interval 0 Impression Atrial fibrillation Left anterior [...] Time spent on admission 10/30/2024 Sommer Friedman [id number] Any scheduled follow up appointments Future Appointments Date Time Provider Department Center 11/19/2024 1:00 PM [facility] Contact Information Primary Emergency Contact: TommichelleParris Mobile Relation: Son Secondary Emergency Contact: Rachel Friedmantt Mobile Relation: Son Preferred language: Hungarian Laserist needed? No Portions of this note may be electronically transcribed. Please forward a copy of this H&P to the primary care physician. [facility] [employer] Work Phone: 10-30-2024 [facility] 10-30-2024 History and physical note History and Physical [facility] Sommer Friedman : 1940 AGE 84 [...] name and date. She was currently at [facility]. There she was sent over to [facility] ED for rapid heart rate. Also reports that she had a couple episodes of vomiting couple episodes of nonbloody diarrhea. She was seen at [facility] had elevated BNP was given some furosemide [...] Past Medical History: Diagnosis Date Afib (CMS/HCC) ([facility]) Anxiety CHF (congestive heart failure) ([facility]) COPD (chronic obstructive pulmonary disease) ([facility]) Dementia ([facility]) Depression Hyperlipidemia Hypertension Hypothyroid Insomnia Pulmonary HTN ([facility]) History reviewed. No pertinent surgical history. Allergies [...] C (98.5 F) Resp 16 Ht 5' 4" (1.626 m) Wt 128 lb (58.1 kg) [...] 10/29/2024 350 QTC Interval 10/29/2024 467 P [place] 10/29/2024 0 QRS [place] 10/29/2024 -40 T Wave [place] 10/29/2024 122 FL Interval 10/29/2024 0 SODIUM 10/29/2024 138 POTASSIUM [...] 10/29/2024 350 QTC Interval 10/29/2024 462 P [place] 10/29/2024 0 QRS [place] 10/29/2024 -52 T Wave [place] 10/29/2024 0 FL Interval 10/29/2024 0 2h Troponin HS (Serial [...] QT Interval 350 QTC Interval 462 P [place] 0 QRS [place] -52 T Wave [place] 0 FL Interval 0 Impression Atrial fibrillation Left anterior [...] Time spent on admission 10/30/2024 Sommer Friedman [id number] Any scheduled follow up appointments Future Appointments Date Time Provider Department Center 11/19/2024 1:00 PM [facility] Contact Information Primary Emergency Contact: TommichelleParris Mobile Relation: Son Secondary Emergency Contact: Jaylan Friedman Mobile Relation: Son Preferred language: Hungarian Laserist needed? No Portions of this note may be electronically transcribed. Please forward a copy of this H&P to the primary care physician. documented in this encounter [facility] 10-30-2024 Emergency department Note Report called to 2E nurse [facility] 10-30-2024 Emergency department Note Report called to 2E nurse Report called to Gloria Wen was called to notify of patient being discharged and to give report. [facility] RN notified their PATTERN DRAFTER and DON and they refused to accept the patient. Patient will now be admitted to [facility]. [facility] notifed that patient will need a private [...] no alcohol use recently. She reports she is" healthy as a horse". No severe pain. Denies paroxysmal nocturnal dyspnea. Reports she was not able to sleep because of racing thoughts. Per her son patient is in alf she is walker to wheelchair bound. REVIEW [...] intact. Motor: Motor function is intact. Coordination: Hgpcci-Aofr-Eusnrp Test normal. Gait: Gait is intact. Deep [...] Culture. Procedure Abnormality Status --------- ------ Complete Urinalysis[[id number]] Normal Final result Please view results for [...] and patient was accepted for admission to [facility] PATIENT REFERRED TO: Kathi Juarez MD [address] [facility] [address] Call in 1 day Roney Jerry MD [address] [facility] [phone] Call in 1 day [facility] Cardiology [address] [facility] [phone] Call in 1 day I prescribed: [...] c/o atrial fibrillation that is chronic via [facility]. Per EMS it was reported to them that the patient did not sleep well last night. V/S obtained, EKG completed, call light within reach. documented in this encounter [facility] 10-30-2024 Emergency department Note Report called to Gloria [facility] 10-29-2024 Emergency department Note Wen was called to notify of patient being discharged and to give report. [facility] RN notified their PATTERN DRAFTER and DON and they refused to accept the patient. Patient will now be admitted to [facility]. [facility] notifed that patient will need a private room due to vomiting and diarrhea. Jon Goode was notified that the ride was cancelled in roundtrip due to patient needing admission. [facility] 10-29-2024 Emergency department Note Patient has been incontinent of three loose bowel movements. Patient had a small emesis. Linens and gown changed, juanis care given. New purwick applied. Patient is also c/o leg cramps. Dr. Araujo aware. [facility] 10-29-2024 Emergency department Note Pur wick initiated due to incontinence, and strict intake and output. [facility] 10-29-2024 Emergency department Triage note Patient to room 4 with c/o atrial fibrillation that is chronic via [facility]. Per EMS it was reported to them that the patient did not sleep well last night. V/S obtained, EKG completed, call light within reach. [facility] 10-29-2024 Physician Emergency department Note EMERGENCY [...] no alcohol use recently. She reports she is" healthy as a horse". No severe pain. Denies paroxysmal nocturnal dyspnea. Reports she was not able to sleep because of racing thoughts. Per her son patient is in alf she is walker to wheelchair bound. REVIEW [...] intact. Motor: Motor function is intact. Coordination: Dulkue-Fitr-Ucnxcr Test normal. Gait: Gait is intact. Deep [...] Culture. Procedure Abnormality Status --------- ------ Complete Urinalysis[[id number]] Normal Final result Please view results for [...] and patient was accepted for admission to [facility] PATIENT REFERRED TO: Kathi Juarez MD [address] [facility] [phone] Call in 1 day Roney Jerry MD [address] [facility] [phone] Call in 1 day [facility] Cardiology [address] [facility] [address] Call in 1 day I prescribed: New Prescriptions No medications on file (Comment: this report has been produced using speech recognition software and may contain errors related to that system including errors in grammar, punctuation, and spelling, as well as words and phrases that may be inappropriate) Marcos Araujo MD (electronically signed) Marcos Araujo MD 10/29/241910 [facility] 10-24-2024 Emergency department Note 13/03 Medical Transport here to transport pt back to [facility]. Pt has been very anxious to go back to the facility, no repeat VS obtained. [facility] 10-24-2024 Emergency department Note 13/03 Medical Transport here to transport pt back to [facility]. Pt has been very anxious to go back to the facility, no repeat VS obtained. Pt yelling in room, RN and medic to room. Pt stating she is "getting pissed" about being here. Pt states she wants to go home to the SNF and go back to her room. She states she is only here because she forgot something. Reassurance given. Pt to ED7 via [facility] with report of altered mental status at [facility]. Per EMS they were called for the pt "not herself." On their arrival the pt was in [...] kg (135 lb) Height: 1.6 m (5' 3") Physical Exam Vitals and nursing note reviewed. [...] states don't mess with my brain When cod clerk told her she at least had a chance to go to [facility] at facility she stuck her tongue out to medic. SCREENINGS Medical decision making DIAGNOSTIC RESULTS Procedures/EKG: Physician EKG interpretation can be found in [facility] if done Radiologist results reviewed: No orders to display LABS: Labs Reviewed POCT GLUCOSE METER UNSOLICITED RESULTS - Abnormal Result Value Glucose 116 (*) Narrative: Performed by: [facility], [address] [place] [address] CLIA ID: [id number] POCT GLUCOSE METER RADIOLOGY : Medications ordered: [...] PM PATIENT REFERRED TO: Kathi Juarez MD [address] [place] [address] [address] [place] [phone] Call in 1 day I prescribed: Discharge Medication List as of 10/24/2024 2:50 PM (Comment: this report has been produced using speech recognition software and may contain errors related to that system including errors in grammar, punctuation, and spelling, as well as words and phrases that may be inappropriate) Marcos Araujo MD (electronically signed) Marcos Araujo MD 10/24/24 1618 documented in this encounter [facility] 10-24-2024 Emergency department Note Pt yelling in room, RN and medic to room. Pt stating she is "getting pissed" about being here. Pt states she wants to go home to the SNF and go back to her room. She states she is only here because she forgot something. Reassurance given. [facility] 10-24-2024 Emergency department Triage note Pt to ED7 via [facility] with report of altered mental status at [facility]. Per EMS they were called for the pt "not herself." On their arrival the pt was in the beauty salon at the SNF and EMS noted strong odor of fumes from hair services. EMS report pt being A&Ox4 with hx dementia. On arrival to ED the pt has no c/o except wanting a drink of water. Ice chips given. Pt is A&Ox3, respirations even and unlabored, skin warm and dry, no distress noted. [facility] 10-24-2024 Physician Emergency department Note EMERGENCY [...] kg (135 lb) Height: 1.6 m (5' 3") Physical Exam Vitals and nursing note reviewed. [...] states don't mess with my brain When cod clerk told her she at least had a chance to go to [facility] at facility she stuck her tongue out to medic. SCREENINGS Medical decision making DIAGNOSTIC RESULTS Procedures/EKG: Physician EKG interpretation can be found in [facility] if done Radiologist results reviewed: No orders to display LABS: Labs Reviewed POCT GLUCOSE METER UNSOLICITED RESULTS - Abnormal Result Value Glucose 116 (*) Narrative: [facility] by: [facility], [address] [place] [address] CLIA ID: [id number] POCT GLUCOSE METER RADIOLOGY : Medications ordered: [...] PM PATIENT REFERRED TO: Kathi Juarez MD [address] [place] [address] [address] [facility] [id number] Call in 1 day I prescribed: Discharge Medication List as of 10/24/2024 2:50 PM (Comment: this report has been produced using speech recognition software and may contain errors related to that system including errors in grammar, punctuation, and spelling, as well as words and phrases that may be inappropriate) Marcos Araujo MD (electronically signed) Marcos Araujo MD 10/24/24 1618 [facility] 10-19-2024 Nurse Note Report called Nilam at [facility]. [facility] 10-19-2024 Nurse Note Report called Nilam at [facility]. Message left at [facility] for nurse to call back to get report on patient. Will be awaiting return phone call. Noted at that patient nut picker time is 1630 from this facility. Heart monitor removed per nursing protocol. Cleaned, and returned to tele 21. Return call from son. He will be in shortly. Patient updated. Attempt to call patient's son Parris, on behalf of patient. No answer, no message left at this time. documented in this encounter [facility] 10-19-2024 Nurse Note Message left at [facility] for nurse to call back to get report on patient. Will be awaiting return phone call. Noted at that patient nut picker time is 1630 from this facility. [facility] 10-19-2024 Nurse Note Heart monitor removed per nursing protocol. Cleaned, and returned to tele 21. [facility] 10-19-2024 Note Formatting of this n ote might be different from the original. Care Management Progress Note Discharge Plan: [facility] [place] Discharge order noted. Case Management portion of Continuity of Care (WONG) updated. Scheduled discharge transportation in [facility], nut picker time confirmed for 1630. Updated bedside RN and requested completion of their portion of the WONG. Called patient's son Parris and updated him on discharge plan. Facility notified of transportation time and discharge documents including After Visit Summary, MAR, LABS, and Vitals were uploaded into [facility] for review. Length of Stay (Days): 0 GMLOS: No GMLOS Documented [facility] 10-19-2024 Note Formatting of this n ote might be different from the original. Care Management Progress Note Discharge Plan: [facility] Discharge order noted. Case Management portion of Continuity of Care (WONG) updated. Scheduled discharge transportation in [facility], nut picker time confirmed for 1630. Updated bedside RN and requested completion of their portion of the WONG. Called patient's son Parris and updated him on discharge plan. Facility notified of transportation time and discharge documents including After Visit Summary, MAR, LABS, and Vitals were uploaded into [facility]port for review. Length of Stay (Days): 0 GMLOS: No GMLOS Documented [facility] 10-19-2024 Miscellaneous Notes Care Management Progress Note Discharge Plan: [facility] [place] Discharge order noted. Case Management portion of Continuity of Care (WONG) updated. [facility], nut picker time confirmed for 1630. Updated bedside RN [...] Outcome: Progressing Rounds this am DCP: From [facility] Sent return referral: she is LTC and [...] failure Referral placed to return back to [facility] via [facility] per [facility] request. Await review and response regarding ability to accept. TCC notified. documented in this encounter [facility] 10-19-2024 Note [facility] 10-19-2024 Hospital course Narrative Discharge Summary Sommer Friedman : 1940 ADMIT DATE: 10/17/2024 DISCHARGE DATE: 10/19/2024 PRIMARY CARE PHYSICIAN: Kathi Juarez VISIT STATUS: Admission CODE STATUS: Full Code DISCHARGE DIAGNOSES: Principal Problem: New onset atrial fibrillation (HCC) HOSPITAL COURSE: Sommer is a 84 y.o. female who presents to the emergency department with chest pain occurring this morning. She is from [facility]. Pain was midchest and she had hard [...] diagnosis management during her stay here at [facility]: Acute, acute on chronic, unstable/uncontrolled chronic problems/diagnoses: [...] spoke with son Parris who is POA ([phone]) on admission to verify. He states patient [...] Complexity: follow up within 7-14 calendar days (05721) [] Severe Complexity: follow up within 7 calendar days (81834) FOLLOW UP TESTING, PENDING RESULTS OR REFERRALS AT TRANSITIONAL CARE VISIT: [] Yes [] No PENDING STUDIES: DISPOSITION: Skilled Facility FACILITY/HOME CARE AGENCY NAME: [facility] Follow up with No follow-up provider specified. [...] 10/19/2024, 2:06 PM documented in this encounter [facility] 10-19-2024 Hospital Discharge instructions Marta Peralta [...] Unit/Room#: B2-254/B2-254 B Discharging Unit Phone Number: [phone] Emergency Contact: Extended Emergency Contact Information Primary Emergency Contact: Parris Friedman Mobile Relation: Son Secondary Emergency Contact: Jaylan Friedman Mobile Relation: Son Preferred language: Hungarian Laserist needed? No Past Surgical History: History reviewed. [...] (98.8 F) (Temporal) Resp 20 Ht 5' 3" (1.6 m) Wt 135 lb (61.2 kg) [...] assistance Toileting Minimal assistance Feeding Minimal assistance Water Sponger Independent Med Delivery no Wound Care Documentation [...] Date: 10/17/24 Discharging to Facility/ Agency Name: [facility] [place] Address: [address] [place] [address] [address] [place] [address] Nurse to Nurse report number is [phone] - [phone] vivar Fax: [employer] Mechanic/Templer Head signature: ICIAN SECTION Name: Sommer Friedman Prognosis: good Condition at Discharge: stable Rehab Potential (if transferring to Rehab): good Recommended Labs or Other Treatments After Discharge: The individual is being admitted to a nursing facility directly from an [facility] or a unit of a [facility] that is not operated by or licensed by [facility] under section 5119.14 or 5160-3-15.1 5 The individual requires the level of services provided by a nursing facility for the condition for which he or she was treated in the hospital and, Physician Certification: I certify the above information and transfer of Sommer Friedman is necessary for the continuing treatment of the diagnosis listed and that she requires longterm facility for greater than 30 days. Update Admission H&P: No change in H&P PHYSICIAN SIGNATURE: documented in this encounter [facility] 10-19-2024 Nurse Note Return call from son. He will be in shortly. Patient updated. [facility] 10-19-2024 Nurse Note Attempt to call patient's son Parris, on behalf of patient. No answer, no message left at this time. [facility] 10-19-2024 History of Present illness Narrative [facility] Cardiology /Electrophysiology Progress Note HPI / Interval History: Sommer Friedman is a 84 y.o. year old female patient with A fib on OAC, hypertension, dementia, and COPD. She resides in a SNF, and her goals are for conservative mgt. It was noted per reviewing notes from [facility]-sotalol and diltiazem both were discontinued due to bradycardia, presumably when in SR. She presented to [facility] due to symptoms of worsening fatigue. [...] found for: TROPDELTBASE No results found for: "TROPHS3" No results found for: TROPDELTSEC Recent Labs [...] 303 215 296 No results for input(s): "BNP" in the last 72 hours. No results for input(s): "TRIG", "HDL", "LDLCALC", "CHOL" in the last 72 hours. No results [...] be monitored and followed by the diet gastrointestinal technician. Spiritual Care Note [facility] Palliative Care Patient Name:Sommer Friedman Chief Complaint: Chief Complaint Patient presents with Chest Pain Patient brought in by EMS from [facility] for chest pain that started last night. [...] in bed. No family present. Patient is Islam. Patient expressed her feelings of isolation and [...] Up: PRN. Debriefed: N/A. Teodoro Corrigan 10/18/24 [facility] [place] [facility] Cardiology /Electrophysiology Progress Note HPI / Interval History: Sommer Friedman is a 84 y.o. year old female patient with A fib on OAC, hypertension, dementia, and COPD. She resides in a SNF, and her goals are for conservative mgt. She tells me, "I'm not one of those people that runs to the doctor with every sniffle." Today she feels well. Her A Fib is controlled with rates in the 80s, and she doesn't report feeling symptoms surrounding this. She denies any chest pain, SOB, dizziness, and edema. She states that she does get a rattle wet rattle in her chest, "for years." 2L 02 > 1L > room air. [...] kg) 135 lb (61.2 kg) Height: 5' 3" (1.6 m) 5' 3" (1.6 m) Intake/Output Summary (Last 24 hours) [...] found for: TROPDELTBASE No results found for: "TROPHS3" No results found for: TROPDELTSEC Recent Labs 10/17/24 1113 NA 137 K 4.2 CL 109* CO2 19* BUN 17 CREATININE 0.87 Recent Labs 10/17/24 1113 WBC 6.8 HGB 12.4 HCT 37.1 MCV 98.1 PLT 303 No results for input(s): "BNP" in the last 72 hours. No results for input(s): "TRIG", "HDL", "LDLCALC", "CHOL" in the last 72 hours. No results [...] Of Service 10/18/2024 Hospitalist Progress Note 10/18/2024 [phone]: Please page wi ([phone]) for patient care issues. [phone]: Please page [place] Hospitalist for any issues. Subjective: Admit Date: 10/17/2024 PCP: Kathi Juarez MD Room#: B2-254/B2-254 B Interval History: patient reported to have 7 beats of v tach this afternoon. Denies chest pain or sob. No abdominal pain, nausea, vomiting. No fevers or chills. Has dementia but able to conversate. Appears comfortable in bed in NAD. Adult diet Regular @[id number]@ 24HR INTAKE/OUTPUT: Intake/Output Summary (Last 24 hours) [...] PROT 6.6 PT/INR: No results for input(s): "PROTIME", "INR" in the last 72 hours. CARDIAC ENZYMES: No results for input(s): "TROPONINI" in the last 72 hours. Procalcitonin: No results found for: "PROCAL" COVID-19 PCR: No results for input(s): "COVID19" in the last 72 hours. Objective: Vitals: BP 115/77 (BP Location: Left arm, Patient Position: Sitting) Pulse 100 Temp 36.1 C (97 F) (Temporal) Resp 16 Ht 5' 3" (1.6 m) Wt 135 lb 3.2 oz [...] spoke with son Parris who is POA ([phone]) on admission to verify. He states patient [...] Jaylan Friedman Mobile Relation: Son Preferred language: Hungarian Laserist needed? No Phill Forte MD Division of Hospitalist Medicine Inpatient Medical Services/[facility] PAGER: Epic chat documented in this encounter [facility] 10-18-2024 Note Problem: Knowledge D eficit Goal: Patient/family/caregiver demonstrates understanding of disease process, treatment plan, medications, and discharge instructions Outcome: Progressing [facility] 10-18-2024 Plan of care note Problem: Knowledge Deficit Goal: Patient/family/caregiver demonstrates understanding of disease process, treatment plan, medications, and discharge instructions Outcome: Progressing [facility] 10-18-2024 Note Formatting of this n ote might be different from the original. Rounds this am DCP: From [facility] Sent return referral: she is LTC and [...] to the atrial fibrillation and heart failure [facility] 10-18-2024 Note Formatting of this n ote might be different from the original. Rounds this am DCP: From [facility] Sent return referral: she is LTC and [...] to the atrial fibrillation and heart failure [facility] 10-18-2024 Note Formatting of this n ote might be different from the original. Referral placed to return back to [facility] via [facility] per [facility] request. Await review and response regarding ability to accept. TCC notified. [facility] 10-18-2024 Note Formatting of this n ote might be different from the original. Referral placed to return back to [facility] via [facility] per [facility] request. Await review and response regarding ability to accept. TCC notified. [facility] 10-18-2024 Note Referral placed to greg arrington back to [facility] via [facility] per [facility] request. Await review and response regarding ability to accept. TCC notified. [facility] 10-17-2024 Consult note Associated Order (s): IP CONSULT TO CARDIOLOGY Images from the original note were not included. [facility] ED [address] [facility] [address] Dept: [phone] This is an 84-year-old woman seen for atrial fibrillation. Her history includes Paroxysmal atrial fibrillation. I followed the [facility] note from August 23, 2024 noting atrial [...] fibrillation. She was brought by EMS from [facility] in [place] for what they said was chest pain that started last night. They also noted shortness of breath. Thus, the history from the initial emergency department records is different than what she told me. Other notes state that the chest pain started this morning. Currently, she is not having any chest pain or shortness of breath. In reviewing the note from the [facility] sotalol and diltiazem was stopped due to [...] furosemide and spironolactone at least short-term. [facility] [employer] Phone: 10-17-2024 Consult note Associated Order (s): IP CONSULT TO CARDIOLOGY Images from the original note were not included. [facility] ED [address] [place] [address] Dept: [phone] This is an 84-year-old woman seen for atrial fibrillation. Her history includes Paroxysmal atrial fibrillation. I followed the [facility] note from August 23, 2024 noting atrial [...] fibrillation. She was brought by EMS from [facility] in [place] for what they said was chest pain that started last night. They also noted shortness of breath. Thus, the history from the initial emergency department records is different than what she told me. Other notes state that the chest pain started this morning. Currently, she is not having any chest pain or shortness of breath. In reviewing the note from the [facility] sotalol and diltiazem was stopped due to [...] least short-term. RBC documented in this encounter [facility] 10-17-2024 History and physical note Attending History and Physical Admit Date: 10/17/2024 PCP: Kathi Juarez MD CHIEF COMPLAINT: Chest pain History Obtained From: patient and ER HISTORY OF PRESENT ILLNESS: Sommer is a 84 y.o. female who presents to the emergency department with chest pain occurring this morning. She is from [facility]. Pain was midchest and she had hard [...] (97.9 F) (Oral) Resp 19 Ht 5' 3" (1.6 m) Wt 123 lb (55.8 kg) [...] PROT 6.6 PT/INR: No results for input(s): "PROTIME", "INR" in the last 72 hours. CARDIAC ENZYMES: No results for input(s): "TROPONINI" in the last 72 hours. Procalcitonin: No results found for: "PROCAL" Urine Culture: No results found for this or any previous visit. COVID-19 PCR: No results for input(s): "COVID19" in the last 72 hours. I reviewed: [...] spoke with kaushal Huitron who is POA ([phone]) to verify. He states patient is to [...] signed by @[email or web address]@ on @TDNR@ at @NOWNR@ [facility] IN-PIPE TECHNOLOGY [facility] 10-17-2024 History and physical note Attending History and Physical Admit Date: 10/17/2024 PCP: Kathi Juarez MD CHIEF COMPLAINT: Chest pain History Obtained From: patient and ER HISTORY OF PRESENT ILLNESS: Sommer is a 84 y.o. female who presents to the emergency department with chest pain occurring this morning. She is from [facility]. Pain was midchest and she had hard [...] (97.9 F) (Oral) Resp 19 Ht 5' 3" (1.6 m) Wt 123 lb (55.8 kg) [...] PROT 6.6 PT/INR: No results for input(s): "PROTIME", "INR" in the last 72 hours. CARDIAC ENZYMES: No results for input(s): "TROPONINI" in the last 72 hours. Procalcitonin: No results found for: "PROCAL" Urine Culture: No results found for this or any previous visit. COVID-19 PCR: No results for input(s): "COVID19" in the last 72 hours. I reviewed: [...] spoke with son Parris who is POA ([phone]) to verify. He states patient is to [...] patient's PCP. Thank you. Electronically signed by @[email or web address]@ on @TDNR@ at @NOWNR@ documented in this encounter [facility] 10-17-2024 Emergency department Note This is my [...] patient. History: Brought in via squad from [facility] at [place] for chest pain started last night. Complaint [...] note TIMBO was reviewing records from the [facility] and it does appear that she has [...] Pain Patient brought in by EMS from [facility] for chest pain that started last night. [...] chest pain occurring this morning, stays at [facility], says and route to hospital pain resolved. [...] Response: Oriented Best Motor Response: Follows commands Otter Coma Scale Score: 15 PHYSICAL EXAM ED [...] In compliance with this authorization, please visit www.fda.gov/media/451160/download or www.fda.gov/media/788650/download to access the applicable information sheets. LIPASE - Normal LIPASE 9 URINE CULTURE COMPLETE URINALYSIS WITH REFLEX TO CULTURE Narrative: The following orders were created for panel order Complete Urinalysis with reflex to Culture. Procedure Abnormality Status --------- ------ Complete Urinalysis[[id number]] Abnormal Final result Please view results for these tests on the individual orders. HIGH SENSITIVITY TROPONIN, SERIAL, SECOND TEST All other labs were within normal range or not returned as of this dictation. EMERGENCY DEPARTMENT COURSE and DIFFERENTIAL DIAGNOSIS/MDM: Vitals: Vitals: 10/17/24 1123 10/17/24 1233 10/17/24 1234 10/17/24 1236 BP: (!) 149/137 (!) 165/103 Pulse: 107 (!) 121 (!) 122 108 Resp: 17 19 Temp: TempSrc: SpO2: 94% 98% [...] reviewed, per review of external records from [facility] cardiology, office visit 08/23/2024 there is a [...] EST Patient brought in by EMS from [facility] for chest pain that started last night. Per SNF patient was complaining of chest pain and SOB starting last night. They that is was due to patient being anxious. The nurse states that she was still having the complaints today so she called to have the patient brought in. Patient is A&Ox3 documented in this encounter [facility] 10-17-2024 Emergency department Triage note Patient brought in by EMS from [facility] for chest pain that started last night. Per SNF patient was complaining of chest pain and SOB starting last night. They that is was due to patient being anxious. The nurse states that she was still having the complaints today so she called to have the patient brought in. Patient is A&Ox3 [facility] 10-17-2024 Physician Emergency department Note This [...] patient. History: Brought in via squad from [facility] at [place] for chest pain started last night. Complaint [...] note TIMBO was reviewing records from the [facility] and it does appear that she has [...] 10/17/24 1218 Ag Meng MD 10/17/24 1319 [facility] 10-17-2024 Physician Emergency department Note EMERGENCY DEPARTMENT ENCOUNTER Pt Name: Sommer Friedman Birthdate 1940 Date of evaluation: 10/17/2024 ED Provider: Jnuo Velez PA-C CHIEF COMPLAINT Chief Complaint Patient presents with Chest Pain Patient brought in by EMS from [facility] for chest pain that started last night. [...] chest pain occurring this morning, stays at [facility], says and route to hospital pain resolved. [...] Alcohol use: Not Currently Drug use: Defer cube19 Drivers of Health Intimate Partner Violence: Patient [...] In compliance with this authorization, please visit www.fda.gov/media/169643/download or www.fda.gov/media/341417/download to access the applicable information sheets. LIPASE - Normal LIPASE 9 URINE CULTURE COMPLETE URINALYSIS WITH REFLEX TO CULTURE Narrative: The following orders were created for panel order Complete Urinalysis with reflex to Culture. Procedure Abnormality Status --------- ------ Complete Urinalysis[[id number]] Abnormal Final result Please view results for [...] reviewed, per review of external records from [facility] cardiology, office visit 08/23/2024 there is a [...] Velez PA-C (electronically signed) Emergency Medicine Provider Juon Velez PA-C 10/17/24 1325 Juno Velez PA-C 10/17/24 1325 Cosigned by Ag Meng MD at 10/17/2024 2:06 PM EST [facility] 08-23-2024 History of Present illness Narrative Images from the original note were not included. [facility] [place] SECTION OF REGIONAL CARDIOLOGY OUTPATIENT VISIT DATE 08/23/2024 OUTPATIENT VISIT TYPE NEW Patient is being seen at the request of Self for elevated BP. HISTORY OF PRESENT ILLNESS: Ms. Friedman is a 84 year old female, hx of atrial fibrillation, HLD, Hypertension, thyroid disease, COPD, anxiety, bradycardia presents for elevated BP. Accompanied by her caregiver. She resides [facility] ([phone]). Her POA is her son Parris Friedman [phone]. She denies chest pain, SOB, palpitations, orthopnea, PND, leg swelling, lightheadedness, syncope. She feels well and states that she us unsure why she needs to see cardiology and does not have any cardiac concerns/ symptoms. EKG: NSR HR 74, biphasic appearing T waves in V4-V6, QTc 481, PACs. She had presented to [facility] ER on 04/10/2024 with lower back pain. [...] 160/80 Pulse 74 Ht 162.6 cm (5' 4") Wt 57.6 kg (126 lb 15.8 oz) [...] on today's visit. I spoke to the night coordinator at her residence who stated that her nurse was unavailable. I left a message for her nurse to contact me via telephone to update her on the visit. Joana Wilson MD, [facility] Non invasive and Sports Client Service Supervisor documented in this encounter [facility] 08-23-2024 Note HNO ID: [id number] Author: JOANA WILSON MD Service: ? Author Type: Physician Type: Progress Notes Filed: 08/23/2024 16:35 Note Text: [facility] [place] SECTION OF REGIONAL CARDIOLOGY OUTPATIENT VISIT DATE 08/23/2024 OUTPATIENT VISIT TYPE NEW Patient is being seen at the request of Self for elevated BP. HISTORY OF PRESENT ILLNESS: Ms. Friedman is a 84 year old female, hx of atrial fibrillation, HLD, Hypertension, thyroid disease, COPD, anxiety, bradycardia presents for elevated BP. Accompanied by her caregiver. She resides [facility] ([phone]). Her POA is her son Parris Friedman [phone]. She denies chest pain, SOB, palpitations, orthopnea, PND, leg swelling, lightheadedness, syncope. She feels well and states that she us unsure why she needs to see cardiology and does not have any cardiac concerns/ symptoms. EKG: NSR HR 74, biphasic appearing T waves in V4-V6, QTc 481, PACs. She had presented to [facility] ER on 04/10/2024 with lower back pain. [...] 160/80 Pulse 74 Ht 162.6 cm (5' 4") Wt 57.6 kg (126 lb 15.8 oz) [...] on today's visit. I spoke to the night coordinator at her residence who stated that her nurse was unavailable. I left a message for her nurse to contact me via telephone to update her on the visit. Joana Wilson MD, [facility] Non invasive and Sports Client Service Supervisor [facility] 04-12-2024 Note [facility] 04-12-2024 Note Formatting of this n ote might be different from the original. Called kaushal Huitron to review discharge time/plan. He is agreeable and wants to talk with Dr. Shannon re: diagnosis.[facility] has notified pt of this request. [facility] 04-12-2024 Note Formatting of this n ote might be different from the original. Called kaushal Huitron to review discharge time/plan. He is agreeable and wants to talk with Dr. Shannon re: diagnosis.[facility] has notified pt of this request. [facility] 04-12-2024 Miscellaneous Notes Called kaushal Huitron to review discharge time/plan. He is agreeable and wants to talk with Dr. Shannon re: diagnosis.[facility] has notified pt of this request. MAR & Discharge med list transmitted to [facility] via Careport per TCC request. Pt passed void trial 04/11. Back brace from arsen is at pt bedside, TCC reminded RN this needs to with pt at [place]. Pt is from [facility], pt is LTC LOC, no auth needed, [...] 3:30 pm today. SW will notify RN, veneer taper, son, and facility. TCC tasked [facility] to transmit discharge orders to LTC. Facility was placed in follow up provider section. Discharge date updated and milestones completed. Pt will be transported to [facility] LT via ambulance transport today at 3:30 pm. [...] shift include pain control Arranged transport to [facility] via [employer] stretcher with pickup at 3:30pm. Notified snf of transport time via Careport message; reviewed time with RN, intensive care unit nurse and TCC. Will update son. Care Managment Initial Assessment Date: 04/11/2024 Patient Name: Sommer Friedman : 1940 Patient Information Source of Information: Patient Ribbon Sweatband Operator Name/Contact Information: Parris robertson [phone] Cognition/Language: Confused at baseline Permission given to speak with patient sales representative girls' apparel/caregiver as indicated: Yes Confirmation of Payer with patient/family: Yes Payer Name: 1. [employer] medicare 2. [facility] medicaid [place]: No Confirmation of Primary Care Physician: Confirmed PCP Name: Dr. Juarez Seen in last 2 years?: Yes Primary Caregiver: Other (Comment) (facility staff) If assistance needed, confirmed caregiver ready, willing and able to care for patient at discharge: Confirmed with: Living Arrangements Current Residence: Number of Floors Number of Entry Steps: Bed/Bath Levels: Facility: [facility] Facility Name: [facility] Plan to Return: Yes Lives with: Alone [...] Assistance Provider Meal Prep Assistance Provider Name: LT Laundry/Cleaning: Assistance Provider Laundry/Cleaning Assistance Provider Name: [facility] Finances/Bill Paying: Assistance Provider Finances/Bill Payer Assistance Provider Name: son Parris Communication: Independent Types of Care Services/Equipment Utilized Care Services: Dialysis Type: NA Durable Medical Equipment: Walker, Wheelchair (standard or power) DME Provider: purchased by son Patient's Goal/Discharge Plan Patient expects to be discharged to: return to [facility] Discharge Planning Actions: Continue to follow, [facility] Facility referral indicated [place] of choice: [place] discussed Patient's Choice Rights and [...] wear back brace when up for comfort. [employer] Installer consulted. PT and OT evals ordered, pending. Pt's son parris is agreeable for pt to return to [facility]. Pt has been there for almost 1 year. TCC tasked [facility] to make a return referral. Plan is return to [facility] when pt is ready with ambulance transport. Son is agreeable to this plan and has no questions at this time. TCC will follow. Ebony Phipps RN documented in this encounter [facility] 04-12-2024 Note Formatting of this n ote might be different from the original. MAR & Discharge med list transmitted to [facility] Return [facility] via Careport per TCC request. [facility] 04-12-2024 Note Formatting of this n ote might be different from the original. MAR & Discharge med list transmitted to [facility] via Careport per TCC request. [facility] 04-12-2024 Note Formatting of this n ote might be different from the original. Pt passed void trial 04/11. Back brace from [employer] is at pt bedside, TCC reminded RN this needs to with pt at DC. Pt is from [facility], pt is LTC LOC, no auth needed, [...] 3:30 pm today. SW will notify RN, veneer taper, son, and facility. TCC tasked [facility] to transmit discharge orders to LTC. Facility was placed in follow up provider section. Discharge date updated and milestones completed. Pt will be transported to [facility] LT via ambulance transport today at 3:30 pm. [facility] 04-12-2024 Note Formatting of this n ote might be different from the original. Pt passed void trial 04/11. Back brace from arsen is at pt bedside, TCC reminded RN this needs to with pt at DC. Pt is from [facility], pt is LTC LOC, no auth needed, [...] 3:30 pm today. SW will notify RN, veneer taper, son, and facility. TCC tasked [employer]OL[employer] to transmit discharge orders to LTC. Facility was placed in follow up provider section. Discharge date updated and milestones completed. Pt will be transported to [facility] via ambulance transport today at 3:30 pm. [facility] 04-12-2024 Nurse Note Report called to Joan Vyas. [facility] 04-12-2024 Nurse Note Report called to Joan Vyas. Attempted to call report to [facility]. The nurse was unavailable. Message left with veneer taper. Patient noted to be diaphoretic, clammy, and stated she felt "woozy". BGT 103. BP 100/47 map 65. Pulse 51. Temp 98.2 oral and resps even and unlabored. USACS paged and lactic + 1000ml NS bolus ordered. Jones cath discontinued. 300 cc clear yellow urine in bag. Aisha well. documented in this encounter [facility] 04-12-2024 Nurse Note Attempted to call report to [facility]. The nurse was unavailable. Message left with veneer taper. [facility] 04-12-2024 Plan of care note Problem: [...] goals for the shift include pain control [facility] 04-12-2024 Note Formatting of this n ote might be different from the original. Arranged transport to [facility] via [employer] with pickup at 3:30pm. Notified snf of transport time via [employer] message; reviewed time with RN, intensive care unit nurse and TCC. Will update son. [facility] 04-12-2024 Note Formatting of this n ote might be different from the original. Arranged transport to [facility] via [employer] with pickup at 3:30pm. Notified snf of transport time via Careport message; reviewed time with RN, intensive care unit nurse and TCC. Will update son. [facility] [employer] 04-12-2024 History of Present illness Narrative Hospitalist Progress Note 04/12/2024 Subjective: Admit Date: 04/10/2024 PCP: Kathi Juarez MD Room#: E5-509/E5-509 A BRIEF HOSPITAL COURSE: Patient is an 84-year-old female with history of atrial fibrillation on sotalol and Cardizem, chronic back pain, thyroid disease, cognitive Ad/dementia who presents to the emergency department from her alf for worsening back pain. Reported fall approximately 1.5 weeks prior. In the emergency department patient had heart rates down into the 40s. Patient underwent CT scan of the abdomen pelvis which showed a L1 burst fracture. Was transferred to [facility] for orthopedic evaluation. Interval History: 04/11 -patient [...] PROT 5.8* PT/INR: No results for input(s): "PROTIME", "INR" in the last 72 hours. CARDIAC ENZYMES: Recent Labs 04/10/24 1450 TROPONINI <0.012 Procalcitonin: No results found for: "PROCAL" COVID-19 PCR: No results for input(s): "COVID19" in the last 72 hours. Objective: Vitals: [...] with care coordination- plan to return to [facility] with PT/OT - delirium precautions: increase activity and limit nighttime disturbances - DVT prophylaxis: enoxaparin Advance Directive: Full Code Anticipated Discharge - Date - 0-1 days - Location - Skilled Facility - Pending the following -pain control, stabilization Extended Emergency Contact Information Primary Emergency Contact: Parris Friedman Mobile Relation: Son Secondary Emergency Contact: ElderJaylan Mobile Relation: Son Preferred language: Hungarian Laserist needed? No Deshawn Shannon MD Division of Hospitalist Medicine Acute care [facility] Images from the original note were not included. OCCUPATIONAL THERAPY [facility] Initial Evaluation Name/MRN: Sommer Friedman ([id number]) Evaluation Date: 04/12/2024 Date of : 1940 Admission Date: 04/10/2024 1:43 PM Age: 84 y.o. Room/Bed: E5-509/E5-509 A Discharge Recommendation: [facility] Facility Assessment IMPRESSION: Pt would benefit from [...] Status: Ox3 Social/Functional History Patient admitted from [facility]. Assistive Equipment: front wheeled walker and wheelchair [...] with/without use of AE with supervision. Start: 04/12/24 Expected End: 05/10/24 Transfers Toilet transfer with supervision. Start: 04/12/24 Expected End: 05/10/24 Therapy Time Individual Co-treatment Time In 0916 Time Out 0940 Minutes 24 Timed Code Treatment Minutes: 15 Minutes (funct act - 1) Patient's Occupational Therapy Plan of Care supervision is transferred to a [facility] Therapy Services Occupational Therapist. Goals and/or treatment plan was established in collaboration with patient/family/other representatives. Sugar Roberts MS, OTR/L Nutrition rescreen completed. Chart reviewed. Patient to be monitored and followed by the diet gastrointestinal technician. BENNIE Pandey Images from the original note were not included. PHYSICAL THERAPY [facility] Initial Evaluation Name/MRN: Sommer Friedman ([id number]) Evaluation Date: 04/11/2024 Date of : 1940 Admission Date: 04/10/2024 1:43 PM Age: 84 y.o. Room/Bed: E5-509/E5-509 A Discharge Recommendation: [facility] Facility Equipment Needed: (tbd) Assessment IMPRESSION: The [...] Pt in bed and agreed to PT. [employer] rep present to fit pt with LSO. [...] Hearing: normal Social/Functional History Patient admitted from [facility]. Assistive Equipment: front wheeled walker and wheelchair [...] Raw Score (No Stairs) : 12 JH-HLM -HLM Score: Walked 25 ft or more (i.e. [...] 04/25/24 Therapy Time Individual Co-treatment Time In 941 (one eval mod complex, one gait) Time Out 1008 Minutes 26 Timed Code Treatment Minutes: 8 Minutes Jt Hidalgo PT Patient's Physical Therapy Plan of Care supervision is transferred to a [facility] Therapy Services Physical Therapist. Goals and/or treatment plan was established in collaboration with patient/family/other representatives. Hospitalist Progress Note 04/11/2024 Subjective: Admit Date: 04/10/2024 PCP: Kathi Juarez MD Room#: E5-509/E5-509 A BRIEF HOSPITAL COURSE: Patient is an 84-year-old female with history of atrial fibrillation on sotalol and Cardizem, chronic back pain, thyroid disease, cognitive Ad/dementia who presents to the emergency department from her alf for worsening back pain. Reported fall approximately 1.5 weeks prior. In the emergency department patient had heart rates down into the 40s. Patient underwent CT scan of the abdomen pelvis which showed a L1 burst fracture. Was transferred to [facility] for orthopedic evaluation. Interval History: 04/11 -patient [...] PROT 5.8* PT/INR: No results for input(s): "PROTIME", "INR" in the last 72 hours. CARDIAC ENZYMES: Recent Labs 04/10/24 1450 TROPONINI <0.012 Procalcitonin: No results found for: "PROCAL" COVID-19 PCR: No results for input(s): "COVID19" in the last 72 hours. Objective: Vitals: [...] with care coordination- plan to return to [facility] with PT/OT - delirium precautions: increase activity [...] Jaylan Friedman Mobile Relation: Son Preferred language: Hungarian Laserist needed? No Deshawn Shannon MD Division of Hospitalist Medicine Acute care [facility] documented in this encounter [facility] 04-11-2024 Nurse Note Patient noted to be diaphoretic, clammy, and stated she felt "woozy". BGT 103. BP 100/47 map 65. Pulse 51. Temp 98.2 oral and resps even and unlabored. USACS paged and lactic + 1000ml NS bolus ordered. [facility] 04-11-2024 Nurse Note Jones cath discontinued. 300 cc clear yellow urine in bag. Aisha well. [facility] 04-11-2024 Consult note Associated Order (s): IP CONSULT TO CARDIOLOGY [facility] [place] [facility] Cardiology /Electrophysiology Consult Note Reason for Consult/Chief Complaint: Bradycardia Referring provider: Dr. Shannon Established personal companion: Outside provider History of Present Illness: Sommer [...] she was brought to the ED at [place]. On presentation to the ED, she was bradycardic HR 40s with ECG showing sinus bradycardia at this rate. Troponin negative, otherwise no leukocytosis or anemia. Creatinine 1.03. On discussions with the patient's son, she resides at a memory care facility and has done so for the last 2 years since they brought her up from [place] to live closer to them and given her declining cognitive function. He says she does not see a personal companion but cannot be sure of that. The patient also says she does not see a personal companion. They are both unsure why she is [...] does not seem to follow with a personal companion and is unaware of her cardiac conditions, as is her family. Is made to call facility as well. For now, sotalol is not a good medication for her especially in the setting of her advanced age and so will monitor for recurrence off this medication. Sotalol on hold. Held diltiazem as well. Mild dementia -Resides at [facility] and is alert and oriented. Hypertension [...] PLT 273 331 No results found for: "HGBA1C" No results found for: "TSH" No results found for: "CHOL" No results found for: "HDL" No results found for: "LDLCALC" No results found for: "TRIG" No results found for: "CHOLHDL" No results found for: LDLCHOLESTER No results for input(s): "BNP" in the last 72 hours. No results for input(s): "INR" in the last 72 hours. Results from last 7 days Lab Units 04/10/24 1450 AST U/L 24 ALT U/L 19 No results found for: "IRON", "TIBC", "FERRITIN" Radiology: CXR: personally reviewed: Cardiac Tests Personally [...] any previous visit. No results found for: "EFBP", "PLVEF", "LVEFPHYS", "LVEF2D", EF Rob Jt Brown MD DATE of SERVICE: [facility]/11/2024 [facility] Phone: 04-11-2024 Consult note Associated Order (s): IP CONSULT TO CARDIOLOGY [facility] [place] [facility] Cardiology /Electrophysiology Consult Note Reason for Consult/Chief Complaint: Bradycardia Referring provider: Dr. Shannon Established personal companion: Outside provider History of Present Illness: Sommer [...] she was brought to the ED at [place]. On presentation to the ED, she was bradycardic HR 40s with ECG showing sinus bradycardia at this rate. Troponin negative, otherwise no leukocytosis or anemia. Creatinine 1.03. On discussions with the patient's son, she resides at a memory care facility and has done so for the last 2 years since they brought her up from [place] to live closer to them and given her declining cognitive function. He says she does not see a personal companion but cannot be sure of that. The patient also says she does not see a personal companion. They are both unsure why she is [...] does not seem to follow with a personal companion and is unaware of her cardiac conditions, as is her family. Is made to call facility as well. For now, sotalol is not a good medication for her especially in the setting of her advanced age and so will monitor for recurrence off this medication. Sotalol on hold. Held diltiazem as well. Mild dementia -Resides at [facility] and is alert and oriented. Hypertension [...] PLT 273 331 No results found for: "HGBA1C" No results found for: "TSH" No results found for: "CHOL" No results found for: "HDL" No results found for: "LDLCALC" No results found for: "TRIG" No results found for: "CHOLHDL" No results found for: LDLCHOLESTER No results for input(s): "BNP" in the last 72 hours. No results for input(s): "INR" in the last 72 hours. Results from last 7 days Lab Units 04/10/24 1450 AST U/L 24 ALT U/L 19 No results found for: "IRON", "TIBC", "FERRITIN" Radiology: CXR: personally reviewed: Cardiac Tests Personally [...] any previous visit. No results found for: "EFBP", "PLVEF", "LVEFPHYS", "LVEF2D", EF Rob Jt Brown MD DATE of SERVICE: 04/11/2024 documented in this encounter [facility] 04-11-2024 Note Formatting of this n ote might be different from the original. Care Managment Initial Assessment Date: 04/11/2024 Patient Name: Sommer Friedman : 1940 Patient Information Source of Information: Patient Ribbon Sweatband Operator Name/Contact Information: Parris robertson [phone] Cognition/Language: Confused at baseline Permission given to speak with patient sales representative girls' apparel/caregiver as indicated: Yes Confirmation of Payer with patient/family: Yes Payer Name: 1. [employer] plan medicare 2. [facility] medicaid [place]: No Confirmation of Primary Care Physician: Confirmed PCP Name: Dr. Juarez Seen in last 2 years?: Yes Primary Caregiver: Other (Comment) (facility staff) If assistance needed, confirmed caregiver ready, willing and able to care for patient at discharge: Confirmed with: Living Arrangements Current Residence: Number of Floors Number of Entry Steps: Bed/Bath Levels: Facility: [facility] Facility Name: [facility] Plan to Return: Yes Lives with: Alone [...] Assistance Provider Meal Prep Assistance Provider Name: LT Laundry/Cleaning: Assistance Provider Laundry/Cleaning Assistance Provider Name: LTC Finances/Bill Paying: Assistance Provider Finances/Bill Payer Assistance Provider Name: kaushal Huitron Communication: Independent Types of Care Services/Equipment Utilized Care Services: Dialysis Type: NA Durable Medical Equipment: Walker, Wheelchair (standard or power) DME Provider: purchased by son Patient's Goal/Discharge Plan Patient expects to be discharged to: return to [facility] Discharge Planning Actions: Continue to follow, [facility] Facility referral indicated [place] of choice: [place] choice discussed Patient's Choice Rights and [...] wear back brace when up for comfort. [employer] Installer consulted. PT and OT evals ordered, pending. Pt's son parris is agreeable for pt to return to [facility]. Pt has been there for almost 1 year. TCC tasked SHOULDER PAD MOLDER to make a return referral. Plan is return to [facility] when pt is ready with ambulance transport. Son is agreeable to this plan and has no questions at this time. TCC will follow. Ebony Phipps RN [facility] 04-11-2024 Note Formatting of this n ote might be different from the original. Care Managment Initial Assessment Date: 04/11/2024 Patient Name: Sommer Friedman : 1940 Patient Information Source of Information: Patient Ribbon Sweatband Operator Name/Contact Information: Parris robertson [phone] Cognition/Language: Confused at baseline Permission given to speak with patient sales representative girls' apparel/caregiver as indicated: Yes Confirmation of Payer with patient/family: Yes Payer Name: 1. [facility] [employer] plan medicare 2. [facility] medicaid : No Confirmation of Primary Care Physician: Confirmed PCP Name: Dr. Juarez Seen in last 2 years?: Yes Primary Caregiver: Other (Comment) (facility staff) If assistance needed, confirmed caregiver ready, willing and able to care for patient at discharge: Confirmed with: Living Arrangements Current Residence: Number of Floors Number of Entry Steps: Bed/Bath Levels: Facility: [facility] Facility Name: [facility] Plan to Return: Yes Lives with: Alone [...] Assistance Provider Meal Prep Assistance Provider Name: LT Laundry/Cleaning: Assistance Provider Laundry/Cleaning Assistance Provider Name: LT Finances/Bill Paying: Assistance Provider Finances/Bill Payer Assistance Provider Name: kaushal Huitron Communication: Independent Types of Care Services/Equipment Utilized Care Services: Dialysis Type: NA Durable Medical Equipment: Walker, Wheelchair (standard or power) DME Provider: purchased by son Patient's Goal/Discharge Plan Patient expects to be discharged to: return to [facility] Discharge Planning Actions: Continue to follow, [facility] Facility referral indicated [place] of choice: [place] of choice discussed Patient's Choice Rights and [...] wear back brace when up for comfort. [employer] Installer consulted. PT and OT evals ordered, pending. Pt's son parris is agreeable for pt to return to [facility]. Pt has been there for almost 1 year. TCC tasked SHOULDER PAD MOLDER to make a return referral. Plan is return to [facility] when pt is ready with ambulance transport. Son is agreeable to this plan and has no questions at this time. TCC will follow. Ebony Phipps RN [facility] 04-11-2024 Hospital Discharge instructions Ivy Chawla [...] EDT As tolerated with PT/OT at facility Deshawn Shannon MD - 04/12/2024 1:31 PM [...] Jaylan Friedman Mobile Relation: Son Preferred language: Hungarian Laserist needed? No Past Surgical History: No past [...] Minimal assistance Toileting Minimal assistance Feeding Independent Water Sponger Minimal assistance Med Delivery yes Wound Care [...] 04/10/2024 Discharging to Facility/ Agency Name: [facility] Address:[address] [place] [address] Aircraft Pneudraulic Systems Mechanic/Templer Head signature: ICIAN SECTION Name: Sommer Friedman Prognosis: fair Condition at Discharge: stable Rehab Potential (if transferring to Rehab): fair Recommended Labs or Other Treatments After Discharge: none The individual is being admitted to a nursing facility directly from an [facility] or a unit of a hospital that is not operated by or licensed by [facility] under section 5119.14 or 5160-3-15.1 5 The [...] H&P PHYSICIAN SIGNATURE: documented in this encounter [facility] 04-10-2024 History and physical note Attending [...] pain is worsened. States that at the alf they told her when she for started having the pain that it was mostly just slipped disc but given severity wanted to come in.. In the ED, at [place] patient with some bradycardic episodes down to [...] and L4-5. Orthopedic surgery recommended admission to [facility] for evaluation and pain control. Past [...] PROT 5.8* PT/INR: No results for input(s): "PROTIME", "INR" in the last 72 hours. CARDIAC ENZYMES: Recent Labs 04/10/24 1450 TROPONINI <0.012 Procalcitonin: No results found for: "PROCAL" Urine Culture: No results found for this or any previous visit. COVID-19 PCR: No results for input(s): "COVID19" in the last 72 hours. I reviewed: [...] problems/diagnoses: incomplete burst fracture of the L1, whgr-pi-dvuieieg spinal stenosis at the T12-L1 level Status post fall 1.5 weeks Pain secondary to above Stable chronic problems affecting care, new non-acute diagnoses: SEE PLAN BELOW Plan As a result of the above findings & factors, the following mgmt was pursued: incomplete burst fracture of the L1, eoht-ft-dmugmcvu spinal stenosis at the T12-L1 level Status [...] Jaylan Friedman Mobile Relation: Son Preferred language: Hungarian Laserist needed? No [employer] Sommer Friedman : 1940 Primary Care Physician: Kathi Juarez MD The patient and/or family/surrogate voluntarily agreed to participate in ACP services. Patient s cognitive capacity: cog impairmtne Code Status: [x] [FULL CODE - Continue all advanced life support: CPR,intubation,invasive procedures] [] [DNR-CCA - DO NOT do CPR, intubation] [] [DNR-BIOLOGICAL SCIENCES PROFESSOR - Comfort care only] [] DNR form [...] of their notes, labs and images). Anahi Woosd MD Division of Hospitalist Medicine [facility] [employer] Phone: 04-10-2024 Note [facility] 04-10-2024 History and physical [...] pain is worsened. States that at the alf they told her when she for started having the pain that it was mostly just slipped disc but given severity wanted to come in.. In the ED, at [place] patient with some bradycardic episodes down to [...] and L4-5. Orthopedic surgery recommended admission to [facility] for evaluation and pain control. Past [...] PROT 5.8* PT/INR: No results for input(s): "PROTIME", "INR" in the last 72 hours. CARDIAC ENZYMES: Recent Labs 04/10/24 1450 TROPONINI <0.012 Procalcitonin: No results found for: "PROCAL" Urine Culture: No results found for this or any previous visit. COVID-19 PCR: No results for input(s): "COVID19" in the last 72 hours. I reviewed: [...] problems/diagnoses: incomplete burst fracture of the L1, puqa-rd-hltxsmut spinal stenosis at the T12-L1 level Status post fall 1.5 weeks Pain secondary to above Stable chronic problems affecting care, new non-acute diagnoses: SEE PLAN BELOW Plan As a result of the above findings & factors, the following mgmt was pursued: incomplete burst fracture of the L1, tczp-wv-dlgkdsfq spinal stenosis at the T12-L1 level Status [...] Jaylan Friedman Mobile Relation: Son Preferred language: Hungarian Laserist needed? No ADVANCED [employer] PLANNING Sommer Friedman : 1940 Primary Care Physician: Kathi Juarez MD The patient and/or family/surrogate voluntarily agreed to participate in ACP services. Patient s cognitive capacity: cog impairmtne Code Status: [x] [FULL CODE - Continue all advanced life support: CPR,intubation,invasive procedures] [] [DNR-CCA - DO NOT do CPR, intubation] [] [DNR-BIOLOGICAL SCIENCES PROFESSOR - Comfort care only] [] DNR form [...] Anahi Woods MD Division of Hospitalist Medicine [facility] documented in this encounter [facility] 04-10-2024 Emergency department Note NEOAS arrives and report given. Patient loaded and sent. Renny Mahmood RN 04/10/241857 [facility] 04-10-2024 Emergency department Note NEOAS arrives and report given. Patient loaded and sent. Renny Mahmood RN 04/10/241857 Report called to [address] for room 509-A. Renny Mahmood RN 04/10/24 2248 Pt fall was on 03/29. Pt had 2 XRs and both negative. Sugar Adler RN 04/10/24 4879 EMERGENCY DEPARTMENT ENCOUNTER Pt Name: Sommer Friedman [...] patient comes in by EMS of her alf. Apparently she may have fallen a few [...] EKG interpretation can be found in [facility] RADIOLOGY (Per Emergency Physician): CT abdomen as interpreted by me showed no evidence of obstruction. Interpretation per the Radiologist below, if available at the time of this note: CT lumbar spine wo IV contrast Final Result 1. Acute incomplete burst fracture of the L1 superior endplate with mild vertebral height loss. Bony retropulsion produces sglt-xs-aduecnzt spinal stenosis at the T12-L1 level. 2. [...] mild vertebral height loss. Bony retropulsion produces orad-ar-arsbcmpy spinal stenosis at the T12-L1 level. 2. [...] Culture. Procedure Abnormality Status --------- ------ Complete Urinalysis[[id number]] Please view results for these tests on [...] lumbar vertebra, unspecified fracture morphology, initial encounter ([facility]) The patient presented with chief complaint of [...] will try to reach out to the alf physician. Patient is in agreement with this [...] mild vertebral height loss. Bony retropulsion produces albt-ej-lxojzxnf spinal stenosis at the T12-L1 level. I attempted to reach out to the alf physician. I did speak with the staff from the alf. They are aware of her injuries. I did consult the orthopedic spine team. They reviewed the images and did not feel as though any emergency surgery was indicated. They did say that she would likely require transfer to [facility] for a closer evaluation considering her symptoms. I did reach out to the hospitalist at [facility]. The transient hypotension and bradycardia was likely medication related. Vitals are currently stable. The patient will be transferred to the [facility] for pain control, vital sign monitoring and orthopedic consultation. CONSULTS: Orthopedics FINAL IMPRESSION 1. Low back pain without sciatica, unspecified back pain laterality, unspecified chronicity 2. Bradycardia 3. Closed fracture of first lumbar vertebra, unspecified fracture morphology, initial encounter ([facility]) DISPOSITION Admit 04/10/2024 04:59:22 PM PATIENT REFERRED [...] Emergency Medicine Provider Dakota Dempsey MD 04/10/24 3493 Patient arrives via ambulance from [facility] due to lower back pain caused by a fall several days ago. Patient has dementia and is a poor historian. documented in this encounter [facility] 04-10-2024 Emergency department Note Report called to [address] for room 509-A. Renny Mahmood RN 04/10/24 3019 [facility] 04-10-2024 Emergency department Note Pt fall was on 03/29. Pt had 2 XRs and both negative. Sugar Adler RN 04/10/24 1409 [facility] 04-10-2024 Emergency department Triage note Patient arrives via ambulance from [facility] due to lower back pain caused by a fall several days ago. Patient has dementia and is a poor historian. [facility] 04-10-2024 Physician Emergency department Note EMERGENCY [...] patient comes in by EMS of her alf. Apparently she may have fallen a few [...] [facility] (Per Emergency Physician): CT abdomen as interpreted by me showed no evidence of obstruction. Interpretation per the Radiologist below, if available at the time of this note: CT lumbar spine wo IV contrast Final Result 1. Acute incomplete burst fracture of the L1 superior endplate with mild vertebral height loss. 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 2. [...] mild vertebral height loss. Bony retropulsion produces aafh-wh-bdjyrnyl spinal stenosis at the T12-L1 level. 2. [...] Culture. Procedure Abnormality Status --------- ------ Complete Urinalysis[[id number]] Please view results for these tests on [...] lumbar vertebra, unspecified fracture morphology, initial encounter ([facility]) The patient presented with chief complaint of [...] will try to reach out to the alf physician. Patient is in agreement with this plan. Medications Lidocaine 4 % patch 1 patch (has no administration in time range) sodium chloride 0.9 % bolus 500 mL (500 mL IntraVENous New Bag 04/10/24 1453) morphine injection 2 mg (2 mg IntraVENous Given 04/10/24 9229) REVAL: When she first came in, she [...] mild vertebral height loss. Bony retropulsion produces mhpg-qg-hdkfyjmn spinal stenosis at the T12-L1 level. I attempted to reach out to the alf physician. I did speak with the staff from the alf. They are aware of her injuries. I did consult the orthopedic spine team. They reviewed the images and did not feel as though any emergency surgery was indicated. They did say that she would likely require transfer to [facility] for a closer evaluation considering her symptoms. I did reach out to the hospitalist at [facility]. The transient hypotension and bradycardia was likely medication related. Vitals are currently stable. The patient will be transferred to the [facility] for pain control, vital sign monitoring and orthopedic consultation. CONSULTS: Orthopedics FINAL IMPRESSION 1. Low back pain without sciatica, unspecified back pain laterality, unspecified chronicity 2. Bradycardia 3. 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 Sensorineural hearing loss, unilateral, left ear, 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 Chronic eustachian salpingitis, unspecified ear Other abnormal auditory perceptions, unspecified ear documented in this encounter [facility] note* Diagnosis Sensorineural hearing loss, unilateral, right [...] perceptions, unspecified ear documented in this encounter [facility] note* Diagnosis Low back pain without sciatica, unspecified back pain laterality, unspecified chronicity- Primary Low back pain without sciatica, unspecified back pain laterality, unspecified chronicity Bradycardia Other specified cardiac dysrhythmias Closed fracture of first lumbar vertebra, unspecified fracture morphology, initial encounter ([facility]) documented in this encounter [facility] note* Diagnosis Hypertension, unspecified type- Primary Atrial fibrillation, unspecified type ([facility]) documented in this encounter [facility] note* Diagnosis New onset atrial fibrillation ([facility])- Primary Atrial fibrillation NSTEMI (non-ST elevated myocardial infarction) ([facility]) Acute myocardial infarction, subendocardial infarction, episode of care unspecified Atrial fibrillation with RVR ([facility]) Chest pain, unspecified type documented in this encounter [facility] note* Diagnosis Dementia, unspecified dementia severity, unspecified dementia type, unspecified whether behavioral, psychotic, or mood disturbance or anxiety ([facility])- Primary documented in this encounter [facility] note* Diagnosis Acute heart failure with preserved ejection fraction (HFpEF) ([facility])- Primary Acute decompensated heart failure ([facility]) Atrial fibrillation with rapid ventricular response ([facility]) Dementia ([facility]) Other persistent mental disorders due to conditions classified elsewhere Atrial fibrillation, permanent ([facility]) Debility Unspecified debility Essential hypertension Unspecified essential hypertension documented in this encounter [facility] note* Diagnosis Permanent atrial fibrillation (HCC)- Primary Atrial fibrillation Atrial fibrillation with rapid ventricular response ([facility]) Encounter to establish care with new provider Essential hypertension Unspecified essential hypertension [facility] H/O acute pancreatitis- Primary Acute pancreatitis, unspecified complication status, unspecified pancreatitis type Dementia without behavioral disturbance, psychotic disturbance, mood disturbance, or anxiety, unspecified dementia severity, unspecified dementia type (HCC) Slow transit constipation Delirium Other alteration of consciousness Debility Unspecified debility Acute pancreatitis, unspecified complication status, unspecified pancreatitis type documented in this encounter [facility] note* Diagnosis Urinary tract infection without hematuria, site unspecified- Primary Nausea Nausea alone Dehydration Elevated troponin Other abnormal blood chemistry [facility] Attachments The following attachments cannot be sent through Care Everywhere. * Dementia Discharge Instructions (Hungarian) [facility] Diagnostic Procedure Only (Routine) - New Request Specialty Diagnoses / Procedures Referred By Ghislaine rosenberg Referred To Contact [facility]LECULAR [facility] FUNCTIONAL IMAGING Diagnoses Atrial fibrillation, unspecified type (HCC) Procedures NM CARDIAC PERF STRESS/PHARM MYOCARDIAL SPECT MULTIPLE STUDIES Joana Wilson MD [address] [place] [id number] [facility] [address] [place] [address] Referral ID Status Reason Start Date Expiration Date Visits Requested Visits Authorized [id number] New Request Auto-Generat ed Referral 08/23/2024 09/22/2025 1 1 * Outpatient Procedure (Routine) - New Request Specialty Diagnoses / Procedures Referred By Ghislaine rosenberg Referred To Contact [facility] Diagnoses Atrial fibrillation, unspecified type (HCC) Procedures ECHO ECHO TTHRC R-T 2D W/WOM-MODE COMPL SPEC&COLR D Joana Wilson MD [address] [place] [id number] [facility] [address] [place] [address] Referral ID Status Reason Start Date Expiration Date Visits Requested Visits Authorized [id number] New Request Auto-Generat ed Referral 08/23/2024 08/23/2025 1 1 [facility])No reason for referral information availableWUniversity [facility]als [facility] Work Phone: Chief Complaint and Reason for Visit Chief Complaint LABWORK HALF-WAY LAB WORK Chief Complaint LABWORK HALF-WAY LAB WORK HALF-WAY LAB WORK Chief Complaint LABWORK HALF-WAY LAB WORK HALF-WAY LAB WORK LABWORK Chief Complaint LABWORK HALF-WAY LAB WORK HALF-WAY LAB WORK LABWORK LABWORK Chief Complaint LABWORK HALF-WAY LAB WORK HALF-WAY LAB WORK LABWORK HALF-WAY LABWORK LABWORK Chief Complaint LABWORK HALF-WAY LAB WORK HALF-WAY LAB WORK LABWORK HALF-WAY LABWORK LABWORK LABWORK Chief Complaint HALF-WAY LAB WOR K LABWORK HALF-WAY LABWORK LABWORK LABWORK LABWORK Chief Complaint LABWORK LABWORK LABWORK LABWORK Chief Complaint LABWORK LABWORK LABWORK HALF-WAY LAB WORK Chief Complaint LABWORK LABWORK LABWORK HALF-WAY LAB WORK LABWORK Chief Complaint Admit Date HALF-WAY LAB WORK October 08 4:00am LAB WORK October 23, 2024 5:00 am LABWORK October 25, 2024 6:20 am LABWORK October 28, 2024 5:0 0am LAB WORK November 04, 2024 5:0 0am HALF-WAY LAB WORK November 26, 2024 4: 00am LABWORK December 04, 2024 5:0 0am Chief Complaint Admit Date HALF-WAY LAB WORK October 08 4:00am LAB WORK October 23, 2024 5:00 am LABWORK October 25, 2024 6:20 am LABWORK October 28, 2024 5:0 0am LAB WORK November 04, 2024 5:0 0am HALF-WAY LAB WORK November 26, 2024 4: 00am LABWORK December 04, 2024 5:0 0am LABWORK December 16, 2024 5:0 0am Chief Complaint Admit Date HALF-WAY LAB WORK October 08 4:00am LAB WORK October 23, 2024 5:00 am LABWORK October 25, 2024 6:20 am LABWORK October 28, 2024 5:0 0am LAB WORK November 04, 2024 5:0 0am HALF-WAY LAB WORK November 26, 2024 4: 00am LABWORK December 04, 2024 5:0 0am LABWORK December 16, 2024 5:0 0am LABOWRK December 30, 2024 5:00a m Chief Complaint Admit Date HALF-WAY LAB WORK October 08 4:00am LAB WORK October 23, 2024 5:00 am LABWORK October 25, 2024 6:20 am LABWORK October 28, 2024 5:0 0am LAB WORK November 04, 2024 5:0 0am HALF-WAY LAB WORK November 26, 2024 4: 00am LABWORK December 04, 2024 5:0 0am LABWORK December 16, 2024 5:0 0am HALF-WAY LAB WORK December 23, 2024 4:00 am LABOWRK December 30, 2024 5:00a m Reason for Referral Specialty Diagnoses / Procedures Referred By Contac t Referred To Contact Radiology Diagnoses Sensorineural hearing loss, unilateral, right ear, 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 Sensorineural hearing loss, unilateral, left ear, 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 Chronic eustachian salpingitis, unspecified ear Other abnormal auditory perceptions, unspecified ear Procedures MR brain w and wo contrast Blayne Rojas, [address] [place] [address] [facility] [address] [place] [address] Referral ID Status Reason Start Date Expiration Date Visits Re quested Visits Authorized [id number] Closed 11/09/2023 11/08/2024 1 1 Specialty Diagnoses / Procedures Referred By Contac t Referred To Contact Radiology Diagnoses Sensorineural hearing loss, unilateral, right ear, 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 Sensorineural hearing loss, unilateral, left ear, 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 Chronic eustachian salpingitis, unspecified ear Other abnormal auditory perceptions, unspecified ear Procedures MR brain w and wo contrast Blayne Rojas, [address] [place] [address] [facility] [address] [place] [address] Advance Directives No Advanced Directives Records Found [...] Status Dates Kathi KULKARNI Attending Provider Active 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 Start Date End Date System, [place] [address] PCP - General 11/22/23 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 Start Date End [facility] [email or web address] [address] PCP - General 11/22/23 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 Start Date End Date Kathi Juarez MD [address] [place] [address] [address] [place] [address] PCP - General Family Medicine 04/10/24 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 Start Date End Date Kathi Juarez MD [facility] [place] [address] PCP - General Family Medicine 08/23/24 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 Start Date End Date Kathi Juarez MD [address] [place] [address] [address] [place] [address] PCP - General Family Medicine 04/10/24 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 Start Date End Date Kathi Juarez MD [address] [place] [address] [address] [place] [address] PCP - General Family Medicine 04/10/24 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 Start Date End Date Kathi Juarez MD [address] [place] [address] [address] [place] [address] PCP - General Family Medicine 04/10/24 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 Start Date End Date Kathi Juarez MD [address] [place] [address] [address] [place] [address] PCP - General Family Medicine 04/10/24 Team Status: Active Member Role Status Dates Kathi KULKARNI Attending Provider Active Star t: October 08, 2024 Kathi KULKARNI Referring Provider Active Star t: October 08, 2024 Team Status: Active Member Role Status Dates [facility] Attending Provider Active Start: October 23, 2024 [...] Status: Inactive Member Role Status Dates Kathi Collinshner CAYLA Attending Provider Active Star t: December 04, [...] Provider Active Star t: December 30, 2024 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 Start Date End Date Kathi Juarez MD [address] [place] [address] [address] [place] [address] PCP - General Family Medicine 04/10/24 Team Status: Inactive Member Role Status Dates Kathi KULKARNI Attending Provider Active Star t: December 30, 2024 End: December 30, 2024 Team Status: Active Member Role Status Dates Kathi KULKARNI Attending Provider Active Star t: January 14, 2025 Team Status: Active Member Role Status Dates Kathi KULKARNI Attending Provider Active Star t: January 15, 2025 Team Status: Inactive Member Role Status Dates Kathi KULKARNI Attending Provider Active Star t: December 23, 2024 End: December 23, 2024 Kathi KULKARNI Referring Provider Active Star t: December 23, 2024 End: December 23, 2024 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 Start Date End Date Kathi Juarez MD [address] [place] [address] [address] [place] [address] PCP - General Family Medicine 04/10/24 Goals (unrecognized section and content) Goals may [...] content) Specialty Diagnoses / Procedures Referred By Ghislaine rosenberg Referred To Contact Radiology Diagnoses Sensorineural hearing loss, unilateral, right ear, 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 Sensorineural hearing loss, unilateral, left ear, 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 Chronic eustachian salpingitis, unspecified ear Other abnormal auditory perceptions, unspecified ear Procedures MR brain w and wo contrast Blayne Rojas DO [address] [place] [address] [facility] [facility] [address] [place] [address] Referral ID Status Reason Start Date Expiration Date Visits Re quested Visits Authorized [id number] Closed 11/09/2023 11/08/2024 1 1 Reason Comments Back Pain Specialty Diagnoses / Procedures Referred By Ghislaine rosenberg Referred To Contact Diagnoses Bradycardia Closed fracture of first lumbar vertebra, unspecified fracture morphology, initial encounter (HCC) Low back pain without sciatica, unspecified back pain laterality, unspecified chronicity Procedures [id number] Hudson MD [address] [place] [address] [facility] [address] [place] [phone] Referral ID Status Reason Start Date Expiration Date Visits Re quested Visits Authorized [id number] 1 1 Reason Comments New Patient Room 15New Dr Carlita aggarwal Referral from 05/01/24EKG Today Specialty Diagnoses / Procedures Referred By Ghislaine rosenberg Referred To Contact Neurology / ADULT NEUROLOGY Diagnoses TIA (transient ischemic attack) TIA Procedures OFFICE/OUTPATIENT NEW HIGH MDM 60 MINUTES OFFICE/OUTPATIENT ESTABLISHED HIGH MDM 40 MIN [facility] Royer Zambrano DO 0 [facility] [place] [address] José Black MD [address] [place] [address] [place] [address] Referral ID Status Reason Start Date Expiration Date Visits Requested Visits Authorized [id number] Authorized OON/Self Pay Override 4 08/05/2025 99 99 Reason Comments Chest Pain Patient brought in b y EMS from [facility] for chest pain that started last night. [...] A&Ox3 Specialty Diagnoses / Procedures Referred By Contac t Referred To Contact Diagnoses New onset atrial fibrillation (HCC) Procedures - Phill Forte MD [address] [place] [address] Phone: tel: fax: [facility] ED [address] [place] [address] Phone: tel: Referral ID Status Reason Start Date Expiration Date Visits Re quested Visits Authorized [id number] 1 1 Reason Comments Other AMS per SNF but pt i s A&Ox4 for EMS Reason Comments Irregular Heart Beat Specialty Diagnoses / Procedures Referred By Contac t Referred To Contact Diagnoses Atrial fibrillation with rapid ventricular response (HCC) Acute decompensated heart failure (HCC) Procedures . Toribio Shepherd MD [address] [facility] [address] [place] [address] Phone: tel: fax: [facility] PCU [address]E [address] [place] [address] Phone: tel: Referral ID Status Reason Start Date Expiration Date Visits Re quested Visits Authorized [id number] 1 1 Reason Comments New Patient Congestive Heart Failure Atrial Fibrillation Specialty Diagnoses / Procedures Referred By Contac t Referred To Contact Cardiology Diagnoses Atrial fibrillation with rapid ventricular response (HCC) Procedures FL OFFICE/OUTPATIENT NEW HIGH MDM 60 MINUTES Marcos Araujo MD [address] [place] [address] Phone: tel: fax: Tevin Conner MD [address] [facility] [address] [place] [address] Phone: tel: fax: Referral ID Status Reason Start Date Expiration Date V isits Requested Visits Authorized [id number] Closed Specialty Services Required 10/29/2024 10/29/2025 1 1 Reason Comments Constipation Per patient she has no complaints. Per EMS she is constipated per nursing facility Specialty Diagnoses / Procedures Referred By Contac t Referred To Contact Diagnoses H/O acute pancreatitis Acute pancreatitis, unspecified complication status, unspecified pancreatitis type Procedures . Vesta Amaya MD [address] [place] [address] Phone: tel: fax: [facility] [place] [address] [place] [phone] Phone: tel: Referral ID Status Reason Start Date Expiration Date Visits Re quested Visits Authorized [id number] 1 1 Reason Comments Nausea Vomiting Dizziness Pt arrives via EMS f [facility] where staff stating she was diaphoretic with nausea and vomiting. Pt denies abdominal pain, but states she feels chilled. Scheduled Active and Recently Administ ered Medications (unrecognized section and content) Medication Order 04/10/2024 04/11/2024 04/12/2024 busPIRone (Buspar) tablet 5 mg 5 mg, Oral, 2 times daily, First dose on Mon04/10/24 at 2100 2212 (Given - Provider: Ethan Brower RN) 1038 (Given - Provider: Sunitha Qureshi RN)2102 (Given - Provider: Ethan Brower RN) 08 (Given - Provider: Vicky Maguire RN) escitalopram (Lexapro) tablet 15 mg 15 mg, Oral, Daily, First dose on Mon04/10/24 at 2100 2215 (Given - Provider: Ethan Brower RN) 1038 (Given - Provider: Sunitha Qureshi RN) 0828 (Given - Provider: Vicky Maguire, [...] RN) 0828 (Medication Applied - Provider: Vicky Maguire RN)1736 (Due: Medication Removed - Provider: Automatic Discharge Provider - Comment: Time automatically adjusted from order being discontinued) losartan (Cozaar) tablet 50 mg 50 mg, Oral, 2 times daily, First dose on Mon04/10/24 at 2100 2212 (Given - Provider: Ethan Brower RN) 1038 (Given - Provider: Sunitha Qureshi RN)2104 (Given - Provider: Ethan Brower RN) 0828 (Given - Provider: Vicky Maguire, PAOLA) melatonin tablet 10 mg 10 mg, Oral, Nightly, First dose on Mon04/10/24 at 2100 2211 (Given - Provider: Ethan Brower RN) 210 (Given - Provider: Ethan Brower RN) morphine [...] Qureshi RN) 0828 (Given - Provider: Vicky Maguire, PAOLA) sodium chloride 0.9 % bolus 1,000 mL (COMPLETED) 1,000 mL, IntraVENous, at 500 mL/hr, Administer over 2 Hours, Once, On Mon04/11/24 at 2315, For 1 dose 2325 (New [...] Qureshi RN) 0829 (Given - Provider: Vicky Maguire, PAOLA) tiZANidine (Zanaflex) tablet 4 mg 4 mg, Oral, 3 times daily, First dose on Mon04/10/24 at 2100 2214 (Given - Provider: Ethan Brower RN) 1038 (Given - Provider: Sunitha Qureshi RN)1423 (Given - Provider: Sunitha Qureshi RN)2103 (Given - Provider: Ethan Brower RN) 0828 (Given - Provider: Vicky Maguire, PAOLA)1434 (Given - Provider: Vicky Maguire, PAOLA) traZODone (Desyrel) tablet 25 mg 25 mg, [...] mg from all sources in 24 hours. 521 (Given - Provid er: Ethan Brower RN) albuterol 108 (90 Base) MCG/ACT inhaler 2 puff 2 puff, Inhalation, Every 6 hours PRN, wheezing, Starting on Mon04/10/24 at 2107 naloxone (Narcan) injection 0.4 mg 0.4 mg, IntraVENous, Every 5 min PRN, opioid reversal, respiratory depression, Starting on Mon04/10/24 at 2021, +++ For RR <10, pinpoint pupils, over sedation for opioid reversal - MUST notify foundation stage teacher provider immediately after first dose, may give IM or SQ if no IV access +++ oxyCODONE (Roxicodone) immediate release tablet 10 mg(Linked Group 2) 10 mg, Oral, Every 4 hours PRN, severe pain (7-10), Starting on Mon04/10/24 at 2016 2102 (See Alternative - Provider: Ethan Brower RN) 0611 (See Alternative - Provider: Mar Kaiser RN)1206 (Given - Provider: Vicky Maguire, PAOLA)1633 (Given - Provider: Vicky Maguire RN) oxyCODONE (Roxicodone) immediate release tablet 5 mg(Linked Group 2) 5 mg, Oral, Every 4 hours PRN, moderate pain (4-6), Starting on Mon04/10/24 at [address] (Given - Provider: Ethan Brower RN) 0611 [...] nausea, vomiting, Starting on Mon04/10/24 at 2108 Linked Groups Order Group 1: acetaminophen (Tylenol) [...] Reason: Other - Comment: Pt took at alf this morning)2018 (Given - Provider: Tiffany Garcia RN) 0938 (Given - Provider: Sheeba López RN)2100 (Given [...] PAOLA) 0847 (Given - Provider: Malathi Stern RN)2100 [...] Tiffany Garcia RN)1532 (Stopped - Provider: Christi Connelly RN) 1421 (New Bag - Provider: Sheeba López RN)1451 (Stopped - Provider: Sheeba óLpez RN) 1407 (New Bag - Provider: Malathi Stern, PAOLA)1437 (Stopped - Provider: Malathi Stern, PAOLA) enoxaparin (Lovenox) syringe 60 mg (COMPLETED) 60 mg (rounded from 55.8 mg = 1 mg/kg 55.8 kg), SubCUTAneous, Once, On Crissy 10/17/24 at 1220, For 1 dose, Indication of Use: ACS 1316 (Given - Provider: Tiffany Garcia RN) escitalopram (Lexapro) tablet 15 mg 15 mg, Oral, Daily, First dose on Crissy 10/17/24 at 1410 1410 (Not Given - Provider: Christi Connelly, PAOLA - Reason: Other - Comment: Pt took this morning at alf) 0938 (Given - Provider: Sheeba López RN) 0847 (Given - Provider: Malathi Stern, PAOLA) furosemide (Lasix) tablet 20 mg 20 mg, Oral, Daily, First dose on Crissy 10/17/24 at 1410 1410 (Not Given - Provider: Christi Connelly RN - Reason: Other - Comment: Pt took this morning at alf) 0938 (Given - Provider: Sheeba López RN) 0847 (Given - Provider: Malathi Stern, PAOLA) levothyroxine (Synthroid, Levoxyl) tablet 25 mcg 25 mcg, Oral, Daily before breakfast, First dose on Mon10/18/24 at 0600 0625 (Given - Provider: Erlinda Zapata RN) 0611 (Given - Provider: Gabriel Boyer, PAOLA) losartan (Cozaar) tablet 50 mg 50 mg, Oral, 2 times daily, First dose on Mon10/17/24 at 2099 2018 (Given - Provider: Tiffany Garcia, PAOLA) 0938 (Given - Provider: Sheeba López, PAOLA)2058 (Given - Provider: Gabriel Boyer, PAOLA) 0847 (Given - Provider: Malathi Stern, PAOLA)2099 (Canceled Entry - Provider: Automatic Discharge Provider - Comment: Automatically canceled at discontinue of medication order) melatonin tablet 10 mg 10 mg, Oral, Nightly, First dose on Mon10/17/24 at 2099 2019 (Given - Provider: Tiffany Garcia, PAOLA) 2058 (Given - Provider: Gabriel Boyer, PAOLA) 2099 (Canceled Entry - Provider: Automatic Discharge Provider - Comment: Automatically canceled at discontinue of medication order) metoprolol tartrate (Lopressor) tablet 25 mg 25 mg, Oral, 2 times daily, First dose (after last reorder) on Mon10/17/24 at 1445 1500 (Given - Provider: Tiffany Garcia, PAOLA)2019 (Given - Provider: Tiffany Garcia RN) 0938 (Given - Provider: Sheeba López RN)2059 (Given - Provider: Gabriel Boyer RN) 0847 (Given - Provider: Malathi Stern, PAOLA)2100 (Canceled Entry - Provider: Automatic Discharge Provider - Comment: Automatically canceled at discontinue of medication order) metoprolol tartrate (Lopressor) tablet 50 mg (COMPLETED) 50 mg, Oral, Once, On Mon10/17/24 at 1220, For 1 dose 1316 (Given - Provider: Tiffany Garcia RN) mometasone-formoterol (Dulera 100) 100-5 MCG/ACT inhaler 2 puff 2 puff, Inhalation, 2 times daily, First dose on Mon10/17/24 at 2000, Rinse mouth with water after use to reduce aftertaste and incidence of candidiasis. Do not swallow. 1999 (Not Given - Provider: Christi Connelly RN - Reason: Patient/family refused) 1227 (Given - Provider: Sheeba López RN)2100 (Given - Provider: Gabriel Boyer RN) 0800 (Not Given - Provider: Malathi Stern RN - Reason: Patient/family refused)1999 (Canceled Entry - Provider: Automatic Discharge Provider - Comment: Automatically canceled at discontinue of medication order) QUEtiapine (SEROquel) tablet 12.5 mg (COMPLETED) 12.5 mg, Oral, Once, On Mon10/18/24 at 2300, For 1 dose 2326 (Given - Provider: Gabriel Boyer, PAOLA) senna-docusate sodium (Senokot-S) 8.6-50 MG tablet 1 tablet 1 tablet, Oral, Daily, First dose on Mon10/17/24 at 1410 1410 (Not Given - Provider: Christi Connelly RN - Reason: Contraindicated - Comment: Pt having diarrhea) 0938 (Given - Provider: Sheeba López RN) 0847 (Given - Provider: Malathi Stern, PAOLA) spironolactone (Aldactone) tablet 25 mg 25 mg, Oral, Daily, First dose on Mon10/17/24 at 1445 1501 (Given - Provider: Tiffany Garcia, PAOLA) 0938 (Given - Provider: Sheeba López RN) 0847 (Given - Provider: Malathi Stern RN) tiZANidine (Zanaflex) tablet 4 mg 4 mg, Oral, 3 times daily, First dose on Crissy 10/17/24 at 1410 1501 (Given - Provider: Tiffany Garcia RN)2019 (Given - Provider: Tiffany Garcia RN) 0938 (Given - Provider: Sheeba López RN)1422 (Given - Provider: Sheeba López, RN)2099 (Given - Provider: Gabriel Boyer, PAOLA) 0847 (Given - Provider: Malathi Stern RN)1403 (Given - Provider: Malathi Stern RN)1999 (Canceled Entry - Provider: Automatic Discharge Provider - Comment: Automatically canceled at discontinue of medication order) traZODone (Desyrel) tablet 25 mg 25 mg, Oral, Nightly, First dose on Crissy 10/17/24 at 2100 2018 (Given - Provider: Tiffany Garcia RN) 2058 (Given - Provider: Gabriel Boyer RN) 2099 (Canceled Entry - Provider: Automatic [...] Anticoagulant 0926 (Given - Provider: Janett Roque RN)2231 (Given - Provider: Erlinda Zapata, PAOLA) 0916 (Given - Provider: Joana Levi, PAOLA)2102 (Given - Provider: Odette Anand, PAOLA) 1005 (Given - Provider: Malathi Stern, PAOLA)2100 (Canceled Entry - Provider: Automatic Discharge Provider - Comment: Automatically canceled at discontinue of medication order) busPIRone (Buspar) tablet 10 mg 10 mg, Oral, Daily, First dose on Mon11/01/24 at 0945 1005 (Given - Provider: Malathi Stern, PAOLA) busPIRone (Buspar) tablet 5 mg (CANCELED) 5 mg, Oral, 2 times daily, First dose on Mon10/30/24 at 0900 0927 (Given - Provider: Janett Roque RN)223 (Given - Provider: Erlinda Zapata, PAOLA) 0916 (Given - Provider: Joana Levi, PAOLA)2102 (Given - Provider: Odette Anand, PAOLA) 0900 (Not Given - Provider: Malathi Stern [...] 2230 (Given - Provider: Erlinda Zapata RN) 210 (Given - Provider: Odette Anand, PAOLA) 2099 (Canceled Entry - Provider: Automatic [...] 4 doses 1253 (Given - Provider: Joana Levi, PAOLA)2231 (Not Given - Provider: Erlinda Zapata RN - Reason: Patient/family refused) 0916 (Given - Provider: Joana Levi RN) furosemide (Lasix) tablet 40 mg 40 mg, Oral, Daily, First dose on Crissy 10/31/24 at 1230 1333 (Given - Provider: Joana Levi, PAOLA) 1005 (Given - Provider: Malathi Stern, PALOA) levothyroxine (Synthroid, Levoxyl) tablet 88 mcg 88 mcg, Oral, Daily before breakfast, First dose on Mon10/30/24 at 0600 0558 (Given - Provider: Ana Hayes RN) 0622 (Given - Provider: Erlinda Zapata RN) 0639 (Given - Provider: Odette Anand, PAOLA) [...] Reason: Patient/family refused)2231 (Given - Provider: Erlinda Zapata RN) 0916 (Given - Provider: Joana Levi RN)1333 (Given - Provider: Joana Levi RN)2102 (Given - Provider: Odette Anand, RN) 1005 (Given - Provider: Malathi Stern, PAOLA)1730 (Given - Provider: Malathi Stern RN)2100 (Canceled [...] specifically ordered. 0617 (Given - Provider: Ana Hayes RN) potassium chloride (Klor-Con) packet 40 mEq (COMPLETED) 40 mEq, Oral, Once, On Mon11/01/24 at 1115, For 1 dose, Dissolve each packet in 4 ounces of water = 5 mEq per 1 oz fluid. 1141 (Given - Provider: Malathi Stern RN) tiZANidine (Zanaflex) tablet 4 mg (CANCELED) 4 [...] Erlinda Zapata RN) 2101 (Given - Provider: Oedtte Anand, PAOLA) 2100 (Canceled Entry - Provider: [...] PRN, agitation, Starting on Mon10/31/24 at 1652 1900 (Given - Provider: Joana Levi, PAOLA) 0204 (Given - Provider: Odette Anand, PAOLA) tiZANidine (Zanaflex) tablet 4 mg 4 mg, Oral, 3 times daily PRN, muscle spasms, Starting on Mon10/30/24 at 1715 1659 (Given - Provider: Joana Levi, PAOLA)2101 (Given - Provider: Odette Anand, PAOLA) Linked Groups Order Group 1: acetaminophen (Tylenol) [...] Krishnan RN) 1999 (Given - Provider: Chrissy Krishann RN) escitalopram (Lexapro) tablet 15 mg 15 [...] Nightly, First dose on Mon01/07/25 at 2100 1999 (Given - Provider: Chrissy Krishnan RN) metoprolol tartrate (Lopressor) tablet 25 mg 25 mg, Oral, 2 times daily, First dose on Mon01/06/25 at 1045 1216 (Given - Provider: Luana Kiran RN)223 (Given - Provider: Chrissy Krishnan RN) 0834 (Given - Provider: Joana Garcia LPN)1999 (Given [...] at 1100 1216 (Given - Provider: Luana Kiran, PAOLA) 0834 (Given - Provider: Joana Garcia LPN) [...] dose 0118 (New Bag - Provider: Ginger Patrick RN)0420 (Stopped - Provider: Ginger Patrick RN) [...] no further options ordered. Scheduled Medication Order 02/16/2025 02/17/2025 02/18/2025 cefTRIAXone (Rocephin) 1,000 mg in sodium chloride 0.9 % 50 mL IVPB Mini-Bag Plus (COMPLETED) 1,000 mg, IntraVENous, at 100 mL/hr, Administer over 30 Minutes, Once, On Mon02/18/25 at 1005, For 1 dose, Mini-Bag Plus bag, Suspected Indication (Select all that apply): Urinary Tract Infection 1027 (New Bag - Prov ider: Chey Sotomayor RN)1101 (Stopped - Provider: Chey Sotomayor RN) ondansetron (Zofran) injection 4 mg (COMPLETED) 4 mg, IntraVENous, Once, On Mon02/18/25 at 0855, For 1 dose 0944 (Given - Provid er: Chey Sotomayor RN) sodium chloride 0.9 % bolus 1,000 mL (COMPLETED) 1,000 mL, IntraVENous, at 1,000 mL/hr, Administer over 1 Hours, Once, On Mon02/18/25 at 0855, For 1 dose 0939 (New Bag - Prov ider: Chey Sotomayor RN)1125 (Stopped - Provider: Chey Sotomayor RN) PRN Medication Order 02/16/2025 02/17/2025 02/18/2025 iopamidol (Isovue-370) 76 % injection 75 mL (COMPLETED) 75 mL, IntraVENous, IMG once PRN, contrast, Starting on Mon02/18/25 at 1106, For 1 dose 1106 (Given - Provid er: Taylor Ramos) Source Comments (unrecognize d section and content) In the event this informatio n is protected by the Federal Confidentiality of Alcohol and Drug Abuse Patient Records regulations: The Federal rules restrict any use of the information to criminally investigate or prosecute any alcohol or drug abuse patient.[facility] INFORMATION SOURCE (unrecogn ized section and content) DATE CREATED AUTHOR 08/30/2024 [facility] DATE CREATED AUTHOR AUTHOR'S ORGANIZ ATION 02/23/2025 [facility] DATE CREATED AUTHOR AUTHOR'S ORGANIZ ATION 03/09/2025 [facility] FOR RECORDS PERTAINING TO PATIENTS WHO ARE [...] BE BASED ON THE PRIMARY CLINICAL RECORDS. [employer] provides no warranty or guarantee of the accuracy or completeness of information in this document.
[2025-03-21 09:05] LABS: Anion Gap 10 (5-15); BUN 17 mg/dL (4-19); BUN/Creat Ratio 18.5 RATIO (10-20); Calcium,Total 9.2 mg/dL (7.6-11.0); Carbon Dioxide 22.4 mmol/L (21.0-32.0); Chloride 101 mmol/L (98-108); Glucose 96 mg/dL (70-99); Magnesium 1.9 mg/dL (1.5-2.2); Potassium 4.1 mmol/L (3.3-5.1)
== END ==
LOC: OLS.ACW100 05:00
PROVIDERS: Visit Provider Family Medicine
DX: I50.23 Acute on chronic systolic (congestive) heart failure (principal); I48.20 Chronic atrial fibrillation, unspecified; R27.9 Unspecified lack of coordination; R53.1 Weakness
CPT/HCPCS: 36415; 80048; 83735

== ENCOUNTER → 2025-03-30 16:00 | Outpatient (REF) | payer MEDICARE, MEDICAID, SELFPAY ==
[2025-03-31 10:16] LABS: Mucous, Urine 0 SEEN /hpf (<or=2+); Red Blood Cells-Urine 0 SEEN /hpf (0-5); Squamous Epithelial Cells - UA 0 SEEN /hpf (5-10)
[2025-03-31 11:05] LABS: Color, Urine Yellow (Yellow); Glucose, Dipstick Normal (Normal); Ketone-Dipstick Negative (Negative); Leukocyte Esterase-Dipstick Negative /ul (Negative); Nitrite-Dipstick Negative (Negative); Occult Blood-Urine Negative /ul (Negative); Protein-Dipstick 15 mg/dl (Negative); Specific Gravity, Urine 1.020 (1.002-1.030); Urine Bilirubin Dipstick Negative (Negative)
== END ==
LOC: OLS.ACW100 16:00
PROVIDERS: Referring Provider Family Medicine; Visit Provider Family Medicine
DX: I50.23 Acute on chronic systolic (congestive) heart failure (principal); I48.20 Chronic atrial fibrillation, unspecified; R45.1 Restlessness and agitation
CPT/HCPCS: 81001; 87086; 87088